=== PATIENT | female | born 1935 | race Caucasian/White ===

== ENCOUNTER 2016-07-15 13:55 | Outpatient (CLI) | payer MEDICARE, OTHER | END 2016-07-15 13:56 | disposition home or self-care (01) | DX: I82.509 Chronic embolism and thrombosis of unspecified deep veins of unspecified lower extremity (principal); Z79.01 Long term (current) use of anticoagulants ==

== ENCOUNTER 2016-07-16 12:30 | Outpatient (CLI) | payer MEDICARE, OTHER | END 2016-07-16 12:31 | disposition home or self-care (01) | DX: R91.1 Solitary pulmonary nodule (principal); J84.10 Pulmonary fibrosis, unspecified ==

== ENCOUNTER 2016-07-30 10:56 | Outpatient (CLI) | payer MEDICARE, OTHER | END 2016-07-30 10:57 | disposition home or self-care (01) | DX: C50.919 Malignant neoplasm of unspecified site of unspecified female breast (principal) ==

== ENCOUNTER 2016-07-31 13:08 | Outpatient (CLI) | payer MEDICARE, OTHER | END 2016-07-31 13:09 | disposition home or self-care (01) | DX: Z79.01 Long term (current) use of anticoagulants (principal); I82.509 Chronic embolism and thrombosis of unspecified deep veins of unspecified lower extremity ==

== ENCOUNTER 2016-10-07 11:27 | Outpatient (CLI) | payer MEDICARE, OTHER | END 2016-10-07 11:28 | disposition home or self-care (01) | DX: M17.12 Unilateral primary osteoarthritis, left knee (principal); R91.1 Solitary pulmonary nodule ==

== ENCOUNTER 2016-10-10 13:11 | Outpatient (CLI) | payer MEDICARE, OTHER | END 2016-10-10 13:12 | disposition home or self-care (01) | DX: I82.509 Chronic embolism and thrombosis of unspecified deep veins of unspecified lower extremity (principal); Z79.01 Long term (current) use of anticoagulants ==

== ENCOUNTER 2016-10-17 22:02 | Inpatient (IN) | payer MEDICARE, OTHER ==
--- NOTE | 2016-10-17 22:20 | ED Physician Documentation ---
PD HPI DYSPNEA - Stated complaint Stated Complaint: SOA - Chief complaint Chief Complaint: Resp - History obtained from History obtained from: Patient - History of Present Illness Timing - onset: How many weeks ago (1) Timing - details: Gradual onset, Waxing and waning Pain level now: 6 (right lateral chest pain) Improved by: Rest Worsened by: Exertion, Coughing Associated symptoms: Fever (Tmax 101 (was measuring at home), although this was 2-3 days ago and patient does not think she has had fever since then), Cough, Wheezing, Chest pain / discomfort. No: Hemoptysis, Palpitations Similar symptoms before: Has not had sx before Recently seen: Not recently seen - Additional information Additional information: nearly one week of increasing cough productive of green sputum, shortness of breath, wheezing, and right anterolateral chest pain that is worse with palpation and coughing Review of Systems Constitutional: reports: Fever. denies: Chills, Sweats Eyes: reports: Reviewed and negative Ears: reports: Reviewed and negative Nose: reports: Reviewed and negative Throat: reports: Reviewed and negative Cardiac: reports: Chest pain / pressure, Pedal edema (chronic). denies: Palpitations Respiratory: reports: Dyspnea, Cough, Wheezing. 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 Cardiovascular: CABG - Present Medications Home Medications: Ambulatory Orders Medication Instructions Recorded Confirmed Albuterol Sulfate [Proair Hfa] 8.5 gm IH Q6H PRN 11/16/12 10/17/16 Allopurinol [Zyloprim] 150 mg PO DAILY 11/16/12 10/17/16 Calcium Carbonate [Calcium] 600 mg PO DAILY 11/16/12 10/17/16 Cholecalciferol (Vitamin D3) 2,000 unit PO DAILY 11/16/12 10/17/16 [Vitamin D] Diphenoxylate HCl/Atropine 1 each PO BIDAC PRN 11/16/12 10/17/16 [Lomotil Tablet] Metoprolol Succinate [Toprol Xl] 50 mg PO BID 11/16/12 10/17/16 Potassium Chloride [K-Tab] 40 meq PO DAILY 11/16/12 10/17/16 SITagliptin [Januvia] 50 mg PO DAILY 11/17/13 10/17/16 oxyCODONE [Roxicodone] 5 mg PO ONCE PRN 11/17/13 10/17/16 Aspirin [Aspir 81] 81 mg ORAL DAILY 03/17/14 10/17/16 Atorvastatin [Lipitor] 40 mg PO DAILY 03/17/14 10/17/16 Iron 1 tab PO DAILY 11/23/14 10/17/16 Acetaminophen [Tylenol] 500 mg PO DAILY 07/17/16 10/17/16 Clopidogrel Bisulfate [Clopidogrel] 75 mg ORAL DAILY 10/17/16 10/17/16 Furosemide 40 mg PO DAILY 10/17/16 10/17/16 Insulin Glargine [Lantus] 15 mg SUBQ BID 10/17/16 10/17/16 Lisinopril [Zestril] 5 mg ORAL DAILY 10/17/16 10/17/16 Pantoprazole Sodium 40 mg ORAL DAILY 10/17/16 10/17/16 Warfarin [Coumadin] 2.5 mg PO QDWARFARIN 10/18/16 10/18/16 Warfarin [Coumadin] 5 mg PO 1400 10/18/16 10/18/16 - Allergies Allergies/Adverse Reactions: Allergies Allergy/AdvReac Type Severity Reaction Status Date / Time Sulfa (Sulfonamide Allergy Severe Hives Verified 10/17/16 22:19 Antibiotics) adhesive Allergy Mild Rash Verified 10/17/16 22:19 codeine Allergy Rash Verified 10/17/16 22:19 Penicillins Allergy Hives Verified 10/17/16 22:19 - Social History Does the pt smoke?: No Smoking Status: Former smoker Does the pt drink ETOH?: Yes Does the pt have substance abuse?: No - Immunizations Immunizations are current?: Yes - POLST Patient has POLST: No PD ED PE NORMAL - Vitals Vital signs reviewed: Yes - General General: Alert and oriented X 3, No acute distress, Well developed/nourished - HEENT HEENT: Moist mucous membranes - Neck Neck: Supple, no meningeal sign - Cardiac Cardiac: RRR, No murmur - Respiratory Respiratory: No respiratory distress - Abdomen Abdomen: Soft, Non tender - Derm Derm: Normal color, Warm and dry PD ED PE EXPANDED - Respiratory Respiratory: Wheezing, Rhonchi - Extremities Extremities: Pedal edema bilateral Results - Vitals Vitals: Vital Signs - 24 hr 10/17/16 10/17/16 10/17/16 22:09 23:29 23:51 Temperature 37.3 C 37.2 C Heart Rate 105 H 99 97 Respiratory 18 20 20 Rate Blood Pressure 152/56 H 120/58 L O2 Saturation 95 97 10/18/16 10/18/16 10/18/16 00:59 01:42 01:45 Temperature 36.7 C Heart Rate 96 96 Respiratory 18 20 Rate Blood Pressure 144/62 H O2 Saturation 91 L 96 Oxygen O2 Source [With Activity] Room air O2 Source [Without Activity] Room air O2 Source Nasal cannula - EKG (time done) No standard instances Rate: Rate (enter#) (100) Rhythm: NSR, LAE [place]: Normal Intervals: Normal SC QRS: Normal Ischemia: Q waves (III, aVF) - Labs Labs: Laboratory Tests 10/17/16 10/17/16 10/17/16 23:43 23:43 23:43 WBC 13.9 H RBC 3.97 L Hgb 11.4 L Hct 35.2 L MCV 88.6 MCH 28.8 MCHC 32.5 RDW 17.7 H Plt Count 246 MPV 9.9 Neut # Not Reportable Lymph # Not Reportable Clay # Not Reportable Eos # Not Reportable Baso # Not Reportable Absolute Nucleated RBC Not Reportable Total Counted 100 Band Neuts % (Manual) 4 Myelocytes % 1 H Neutrophils # (Manual) 11.3 H Lymphocytes # (Manual) 1.7 Monocytes # (Manual) 0.8 Nucleated RBCs Not Reportable Differential Comment MANUAL DIFFERENTIAL Platelet Estimate NORMAL (130-450,000) RBC Morph Micro Appear NORMAL APPEARANCE PT 28.7 H INR 2.5 H APTT 31.8 Sodium 141 Potassium 4.3 Chloride 104 Carbon Dioxide 30 Anion Gap 7.0 BUN 32 H Creatinine 1.3 H Estimated GFR (MDRD) 40 L Glucose 166 H Calcium 8.9 Total Bilirubin 0.4 AST 22 ALT 18 Alkaline Phosphatase 87 B-Natriuretic Peptide Total Protein 7.2 Albumin 3.1 L Globulin 4.1 Albumin/Globulin Ratio 0.8 L Lipase 53 H 10/17/16 23:43 WBC RBC Hgb Hct MCV MCH MCHC RDW Plt Count MPV Neut # Lymph # Clay # Eos # Baso # Absolute Nucleated RBC Total Counted Band Neuts % (Manual) Myelocytes % Neutrophils # (Manual) Lymphocytes # (Manual) Monocytes # (Manual) Nucleated RBCs Differential Comment Platelet Estimate RBC Morph Micro Appear PT INR APTT Sodium Potassium Chloride Carbon Dioxide Anion Gap BUN Creatinine Estimated GFR (MDRD) Glucose Calcium Total Bilirubin AST ALT Alkaline Phosphatase B-Natriuretic Peptide 178 H Total Protein Albumin Globulin Albumin/Globulin Ratio Lipase - Rads (name of study) chest xray Radiology: Prelim report reviewed, See rad report PD MEDICAL DECISION MAKING - ED course Complexity details: reviewed results, re-evaluated patient, considered differential, d/w patient, d/w family ED course: course wheezing bilaterally on arrival with pulse ox 93-95% room air. patient reported mild improvement after duoneb and then xopenex neb, but lung sounds are unchanged on reexam and her pulse ox dropped to 90% room air. Departure - Departure Disposition: [facility] DC/Xfer Clinical Impression: Dyspnea, Pneumonia Condition: Stable Discharge Date/Time: 10/18/16 03:50
[2016-10-17] MEDS ORDERED: ACETAMINOPHEN 325 MG TABLET PO STA (23:12)
[2016-10-17] MEDS ORDERED: ACETAMINOPHEN 325 MG TABLET PO ONE (23:13)
--- NOTE | 2016-10-17 23:13 | XRAY Preliminary Report ---
Exam: XR Chest 2 View PA/LAT IMPRESSION: Stable cardiomegaly. No acute pulmonary findings. [facility] SITE ID: [id number]
[2016-10-17] MEDS ORDERED: IPRATROPIUM/ALBUTEROL 3 ML NEB INH STA (23:16)
--- NOTE | 2016-10-17 23:16 | XRAY Report ---
EXAM: CHEST RADIOGRAPHY EXAM DATE: 10/17/2016 10:35 PM. CLINICAL HISTORY: Cough, dyspnea. COMPARISON: Chest 10/07/2016. TECHNIQUE: 2 views. FINDINGS: Lungs/Pleura: No focal opacities evident. No pleural effusion. No pneumothorax. Normal volumes. Limit ed penetration on the frontal view. Mediastinum: Stable cardiomegaly. Mediastinal postsurgical change Other: None. IMPRESSION: Stable cardiomegaly. No acute pulmonary findings. [facility] Referring Provider Line: [phone] SITE ID: [id number]
[2016-10-17] MEDS ORDERED: IPRATROPIUM/ALBUTEROL 3 ML NEB INH ONE (23:24)
[2016-10-17 23:55] LABS: EOSINOPHILS % (AUTO) 3.6 %; HCT - HEMATOCRIT 35.2 % (37.0-47.0); HGB - HEMOGLOBIN 11.4 g/dL (12.0-16.0); LYMPHOCYTES % (AUTO) 11.9 %; MEAN CORPUSCULAR HEMOGLOBIN 28.8 pg (27.0-31.0); MEAN CORPUSCULAR HGB CONC 32.5 g/dL (32.0-36.0); MEAN CORPUSCULAR VOLUME 88.6 fL (81.0-99.0); MEAN PLATELET VOLUME 9.9 fL (7.9-10.8); MONOCYTES % (AUTO) 11.7 %; NEUTROPHILS % (AUTO) 71.8 %; RED BLOOD COUNT 3.97 10^6/uL (4.20-5.40); RED CELL DISTRIBUTION WIDTH 17.7 % (12.0-15.0); UNCORRECTED WHITE BLOOD COUNT 13.9 x10^3/uL; WHITE BLOOD COUNT 13.9 x10^3/uL (4.8-10.8)
[2016-10-18 00:05] LABS: ALBUMIN/GLOBULIN RATIO 0.8 (1.0-2.2); BILIRUBIN,TOTAL 0.4 mg/dL (0.2-1.0); CALCIUM 8.9 mg/dL (8.5-10.3); CREATININE 1.3 mg/dL (0.4-1.0); POTASSIUM 4.3 mmol/L (3.5-5.0); TOTAL PROTEIN 7.2 g/dL (6.7-8.2)
[2016-10-18 00:07] LABS: INR 2.5 (0.8-1.2); PT - PROTHROMBIN TIME 28.7 secs (9.9-12.6)
[2016-10-18 00:15] LABS: PARTIAL THROMBOPLASTIN TIME 31.8 secs (24.9-33.3)
[2016-10-18 00:20] LABS: BAND NEUTROPHILS % (MANUAL) 4 %; LYMPHOCYTES % (MANUAL) 12 %; NEUTROPHILS % (MANUAL) 77 %; NP AUTO DIFFERENTIAL? YES; NP MAN DIFFERENTIAL? NO; PLATELET ESTIMATE, MANUAL NORMAL (130-450,000) (NORMAL); TOTAL CELLS COUNTED 100
[2016-10-18] MEDS ORDERED: LEVALBUTEROL 1.25 MG INH STA (00:54)
[2016-10-18] MEDS ORDERED: LEVALBUTEROL 1.25 MG INH ONE (00:55)
[2016-10-18] MEDS ORDERED: oxyCODONE 5 MG TABLET PO STA (00:56)
[2016-10-18] MEDS ORDERED: oxyCODONE 5 MG TABLET ONE (00:57)
[2016-10-18] MEDS ORDERED: methylPREDNISolone SUCCINATE 125 MG/2 ML VIAL IVP STA (00:57)
[2016-10-18] MEDS ORDERED: methylPREDNISolone SUCCINATE 125 MG/2 ML VIAL IVP ONE (00:57)
[2016-10-18] MEDS ORDERED: ONDANSETRON 4 MG/2 ML VIAL IVP PRN (02:31)
[2016-10-18] MEDS ORDERED: PROCHLORPERAZINE 10 MG/2 ML VIAL IVP PRN (02:31)
--- NOTE | 2016-10-18 02:50 | HISTORY & PHYSICAL EXAMINATION ---
Chief Complaint - Chief Complaint Chief Complaint: shortness of air History of Present Illness - Admitted From Admitted From:: emergency department - History Obtained From Records Reviewed: yes History obtained from: patient and family Exam Limitations: none - History of Present Illness HPI Comment/Other: Patient is a 81-year-old female with a past medical history significant for obesity, diabetes, coronary artery disease status post 3 vessel bypass 1 year ago, history of pulmonary embolism and DVT with IVC filter on Coumadin, history of subdural hematoma, history of breast cancer, spinal stenosis with chronic back pain, hypertension, hyperlipidemia, history of TIAs with memory impairment , osteoarthritis and gout who presented to the emergency department with a chief complaint of shortness of air. The patient states that her symptoms started about one week ago. She states that initially she thought she had a cold she felt a slight sore throat and then began having cough initially just at night. The patient states that the cough progressed with increased sputum production and she now has cough throughout the day. She states that over the last few days cough has increased, she had fever at home of 101 yesterday and she's begun feeling increasingly short of air appear. She also admits to chest pain on the right side she states that the pain is worse when she takes a deep breath. She states that she did have a fall about 6 months ago in [place] and broke several ribs at that time on the right side of her chest. He also states that she had a coronary artery bypass graft one year ago and did have a sternotomy at that time. The patient denies any sick contacts. She does admit to a history of smoking but has quit over 20 years ago. The patient does use inhalers from time to time at home but has never had a diagnosis of COPD. The patient has never been admitted to the hospital for COPD exacerbation in the past. 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 The patient denies any orthopnea PND or increased lower extremity swelling. On presentation to the emergency department the patient was afebrile, tachycardic, slightly hypertensive but initially was not tachypnea and not hypoxic. The patient did have audible wheezing and appeared very tight on lung examination with coarse rhonchi. The patient was given several breathing treatments after which she did not have very much improvement in her shortness of air. Her O2 sats dropped to the low 90s and she was placed on oxygen. Patient 's chest x-ray did not reveal an acute infiltrate. She did have a leukocytosis of 13.9 and clinically appeared to have a pneumonia therefore she was admitted to the hospital for community-acquired pneumonia and COPD exacerbation. Review of Systems - Constitutional Constitutional: reports: Fever. denies: Fatigue, Chills, Malaise, Weakness, Poor appetite, Diaphoresis, Night sweats, Weight gain, Weight loss - Eyes Eyes: denies: Pain, Irritation, Amaurosis, Blurred vision, Spots in vision, Field loss, Vision loss, Dipolpia - Ears, Nose & Throat Ears, Nose & Throat: reports: Nasal congestion, Sore throat, Hoarseness. denies : Ear pain, Hearing loss, Hearing aids, Tinnitus, Vertigo, Nasal pain, Nasal discharge, Nosebleeds, Nasal obstruction, Postnasal drainage, Mouth lesions, Bleeding gums, Dental decay, Dental pain - Cardiovascular Cariovascular: reports: Chest pain (Right sided, pleuritic), Exertional dyspnea , Decr. exercise tolerance. denies: Irregular heart rate, Palpitations, Edema, Lightheadedness, Syncope, Orthopnea - Respiratory Respiratory: reports: Cough, Sputum production, Wheezing, SOB at rest, SOB with exertion, Pleuritic pain. denies: Hemoptysis, Orthopnea, Apnea, Stridor - Gastrointestinal Gastrointestinal: denies: Abdominal pain, Abdominal distention, Constipation, Diarrhea, Change in bowel habits, Black stools, Bloody stools, Nausea, Vomiting , Coffee grounds emesis, Poor appetite - Genitourinary Genitourinary: denies: Dysuria, Frequency, Urgency, Hematuria, Incontinence - Musculoskeletal Musculoskeletal: reports: Back pain, Joint pain. denies: Muscle pain, Muscle aches - Integumentary Integumentary: denies: Rash, Pruritis, Lesions - Neurological Neurological: reports: Abnormal gait. denies: General weakness, Focal weakness , Headache, Dizziness, Numbness, Memory problems, Pre-existing deficit - Psychiatric Psychiatric: denies: Depression, Anxiety, Suicidal, Delusions - Endocrine Endocrine: denies: Polyuria, Polydypsia, Polyphagia - Hematologic/Lymphatic Hematologic/Lymphatic: denies: Anemia, Bruising, Petechiae, Blood clots, Lymphadenopathy History - Past Medical History Cardiovascular: reports: Hypertension, High cholesterol, Coronary artery disease (s/p CABG 1 years ago with 3 vessel bypass), Deep vein thrombosis, Pulmonary embolism (s/p IVC filter and on anticoagulation) Respiratory: reports: Asthma, COPD, Other (Rib fractures) Neuro: reports: TIA, Other (Subdural Hematoma) Endocrine/Autoimmune: reports: Type 2 diabetes GI: reports: None 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 Social History Notes: [facility]. Moved to [place] 40 years ago. Now lives 6 months in [place] and 6 months on [facility]. She lives with her . They are independent. Patient was using a cane till recent injury to her knee and now uses cane and wheelchair. She has 3 children. - Substance History Use: Uses substance without health or social issues: NONE Abuse: Recurrent use of substance despite neg consequences: NONE Dependence: Experiences withdrawal or developed tolerances: NONE Tobacco Details: Cigarettes (History of tobacco use 1-2 PPD for 30 plus years quit over 20 years ago. ) - POLST Patient has POLST: No Meds/Allgy - Home Medications Home Medications: Ambulatory Orders Medication Instructions Recorded Confirmed Albuterol Sulfate [Proair Hfa] 8.5 gm IH Q6H PRN 11/16/12 10/17/16 Allopurinol [Zyloprim] 150 mg PO DAILY 11/16/12 10/17/16 Calcium Carbonate [Calcium] 600 mg PO DAILY 11/16/12 10/17/16 Cholecalciferol (Vitamin D3) 2,000 unit PO DAILY 11/16/12 10/17/16 [Vitamin D] Diphenoxylate HCl/Atropine 1 each PO BIDAC PRN 11/16/12 10/17/16 [Lomotil Tablet] Metoprolol Succinate [Toprol Xl] 50 mg PO BID 11/16/12 10/17/16 Potassium Chloride [K-Tab] 40 meq PO DAILY 11/16/12 10/17/16 SITagliptin [Januvia] 50 mg PO DAILY 11/17/13 10/17/16 oxyCODONE [Roxicodone] 5 mg PO ONCE PRN 11/17/13 10/17/16 Aspirin [Aspir 81] 81 mg ORAL DAILY 03/17/14 10/17/16 Atorvastatin [Lipitor] 40 mg PO DAILY 03/17/14 10/17/16 Iron 1 tab PO DAILY 11/23/14 10/17/16 Acetaminophen [Tylenol] 500 mg PO DAILY 07/17/16 10/17/16 Clopidogrel Bisulfate [Clopidogrel] 75 mg ORAL DAILY 10/17/16 10/17/16 Furosemide 40 mg PO DAILY 10/17/16 10/17/16 Insulin Glargine [Lantus] 15 mg SUBQ BID 10/17/16 10/17/16 Lisinopril [Zestril] 5 mg ORAL DAILY 10/17/16 10/17/16 Pantoprazole Sodium 40 mg ORAL DAILY 10/17/16 10/17/16 Warfarin [Coumadin] 2.5 mg PO QDWARFARIN 10/18/16 10/18/16 Warfarin [Coumadin] 5 mg PO 1400 10/18/16 10/18/16 - Allergies Allergies/Adverse Reactions: Allergies Allergy/AdvReac Type Severity Reaction Status Date / Time Sulfa (Sulfonamide Allergy Severe Hives Verified 10/17/16 22:19 Antibiotics) adhesive Allergy Mild Rash Verified 10/17/16 22:19 codeine Allergy Rash Verified 10/17/16 22:19 Penicillins Allergy Hives Verified 10/17/16 22:19 Exam - Vital Signs Reviewed Vital Signs: Yes Vital Signs: Vital Signs x48h Temp Pulse Resp BP Pulse Ox 10/18/16 01:45 96 10/18/16 01:42 36.7 C 96 20 144/62 H 91 L 10/18/16 00:59 96 18 10/17/16 23:51 37.2 C 97 20 120/58 L 97 10/17/16 23:29 99 20 10/17/16 22:09 37.3 C 105 H 18 152/56 H 95 - Physical Exam General Appearance: positive: Alert, Mild distress (Audible wheezing, short of air at rest and continued coughing) Eyes Bilateral: positive: Normal inspection, PERRL, EOMI, No lid inflammation, Conjunctivae nml, No scleral icterus ENT: positive: ENT inspection nml, Pharynx nml, No signs of dehydration. negative: Purulent nasal drainage, Pharyngeal erythema, Oral lesions Neck: positive: Nml inspection, Thyroid nml, No JVD, Trachea midline. negative : Thyromegaly, Lymphadenopathy (R), Lymphadenopathy (L) Respiratory: positive: Wheezes (Inspiratory and expiratory wheezing worst in upper airways.), Rales (at bases), Rhonchi (Coarse rhonci heard bilaterally worse in lower lobes), Other (Right side of chest is tender to touch) Cardiovascular: positive: No murmur, No gallop, Tachycardia Peripheral Pulses: positive: 2+ Abdomen: positive: Non-tender, No organomegaly, Nml bowel sounds, No distention. negative: Guarding, Rebound, Hepatomegaly Back: positive: Nml inspection. negative: CVA tenderness (R), CVA tenderness (L ) Skin: positive: Color nml, No rash, Warm Extremities: positive: Non-tender, Full ROM, Pedal edema (Mild), Joint swelling , Other (Bouchards and heberdens nodes on DIPs and PIPs. Crepitus in the knee joints. Swollen knee joints right worse than left.) Neurologic/Psychiatric: positive: Oriented x3, CN's nml (2-12), Motor nml, Sensation nml, Mood/affect nml Conclusion/Plan - Problem List (1) CAP (community acquired pneumonia) Conclusion/Plan: Patient presented with productive cough, shortness of air, fever of 101 at home and was hypoxic down to 90% in the ED with wheezing and rhonci on exam Patients CXR was negative but she clinically appears to have a pneumonia Plan CT scan of chest to better access for pneumonia IV ceftriaxone and Azithromycin to cover organisms for CAP Cough suppressant Supplemental O2 Nebs Monitor (2) COPD exacerbation Conclusion/Plan: Patient does not have PFTs to diagnose COPD but she has used inhalers at home in the past, she also smoked 1-2 PPD for 30 plus years She presented with diffuse bilateral inspiratory and expiratory wheezing Likley exacerbation secondary to pneumonia Plan Supplemental O2 Duonebs ATC and prn IV solumedrol TID IV abx for pneumonia (3) Chest pain Conclusion/Plan: Appears pleuritic and musculoskelatal in nature Patient broke multiple ribs 6 months ago She also appears to have pneumonia Pleurtic component likely from pneumonia and MSK component likely from history of fractures (4) Diabetes Conclusion/Plan: Hyperglycemia on presentation likely secondary to stress from infection Patient will be on steroids for COPD and this will likely make sugars worse Continue home dose of Lantus BID Place patient on sliding scale insulin with meals HbA1C Diabetic diet (5) History of coronary artery disease Conclusion/Plan: CABG 3 vessel one year ago On ASA, Plavix, lipitor and metoprolol Optimal medications Patient has chest pain but it is pleuritic EKG and trop negative Stable (6) History of pulmonary embolism Conclusion/Plan: On coumadin and has a IVC filter secondary to subdural hematoma when initially treated for PE INR theraputic COntinue coumadin Monitor INR (7) Hypertension Conclusion/Plan: BP elevated on presentation Will continue home meds Monitor and titrate meds as needed (8) Hyperlipidemia Conclusion/Plan: COntinue lipitor Stable (9) Chronic back pain Conclusion/Plan: Secondary to spinal stenosis On oxycodone at home prn Will continue oxycodone here and add morphine as patient has added pain in the chest. - Lab Results Lab results reviewed: Yes Fish Bones: 10/17/16 23:43 10/17/16 23:43 - Diagnostic Imaging Results Diagnostic Imaging Results: positive: Final report reviewed Diagnostic Imaging Results Comments: No infiltrates seen on CXR - EKG Results EKG Interpreted Independently: Yes EKG Findings: No ST elevations, Normal sinus rhythm Issues/Core Measures - Anticipated LOS Anticipated Stay Length: 2 or more midnights - DVT/VTE - Prophylaxis VTE/DVT Device ordered at admit?: Yes
[2016-10-18] MEDS: guaiFENesin 600 MG TABLET PO SCH ×3 (04:07→21:37)
[2016-10-18] MEDS: ACETAMINOPHEN 325 MG TABLET PO PRN ×2 (04:07→23:53)
[2016-10-18] MEDS: SODIUM CHLORIDE 0.9% 1,000 ML IV SCH ×3 (04:08→23:53)
[2016-10-18] MEDS: SODIUM CHLORIDE FLUSH 0.9% 10 ML SYRINGE IVP SCH ×3 (04:09→21:41)
[2016-10-18] MEDS: AZITHROMYCIN INJ 500 MG in SODIUM CHLORIDE 0.9% 250 ML IV SCH (04:29)
--- NOTE | 2016-10-18 04:52 | CT Report ---
EXAM: CT CHEST EXAM DATE: 10/18/2016 03:33 AM. CLINICAL HISTORY: Clinical presentation w pneumonia not seen on CXR. Productive cough and wheezing. COMPARISONS: CT, 04/06/2014, and multiple chest radiographs of 10/17/2016 and earlier. TECHNIQUE: Routine helical CT imaging was performed through the chest. IV contrast: None. Reconstructions: Coron al and sagittal. In accordance with CT protocol optimization, one or more of the following dose reduction techniques w ere utilized for this exam: automated exposure control, adjustment of mA and/or KV based on patient s ize, or use of iterative reconstructive technique. FINDINGS: Lungs/Pleura: Focal mass or consolidation at the right apex measuring 3.2 x 3.0 cm, 09/19. This is new compared with the prior CT and not well seen on the chest radiographs. Scarring is again seen in the left upper lobe consistent with prior radiation. There is bibasilar atelectasis. No pleural effusion is seen. No pneumothorax is noted. Mediastinum: Heart size is normal. Normal to upper normal-sized mediastinal lymph nodes measuring up to 1.0 cm. Aortic atherosclerosis. No aortic aneurysm. Bones: Median sternotomy. Osteopenia. Ununited left rib fractures. Degenerative changes in the spine. Visualized Abdomen: Possible tiny stones in the gallbladder. Other: None. IMPRESSION: 1. There is a 3 cm mass or consolidation at the right apex. This could represent pneumonia but could also be malignant. Consider CT follow-up, versus PET/CT or biopsy depending on the clinical scenario. 2. Normal to upper normal-sized mediastinal lymph nodes. [facility] Referring Provider Line: [phone] SITE ID: [id number]
[2016-10-18] MEDS: cefTRIAXone 2 GM in SODIUM CHLORIDE 0.9% MINIBAG 100 ML IV SCH (05:36)
[2016-10-18] MEDS: methylPREDNISolone SUCCINATE 40 MG/ML VIAL IVP SCH ×3 (05:36→21:39)
[2016-10-18] MEDS: IPRATROPIUM/ALBUTEROL 3 ML NEB INH SCH ×4 (06:06→20:45)
[2016-10-18 06:29] LABS: BASOPHILS % (AUTO) 0.3 %; HGB - HEMOGLOBIN 11.1 g/dL (12.0-16.0); LYMPHOCYTES % (AUTO) 3.9 %; MEAN CORPUSCULAR HEMOGLOBIN 28.4 pg (27.0-31.0); MEAN CORPUSCULAR HGB CONC 31.6 g/dL (32.0-36.0); MEAN CORPUSCULAR VOLUME 89.9 fL (81.0-99.0); MONOCYTES % (AUTO) 0.8 %; RED BLOOD COUNT 3.89 10^6/uL (4.20-5.40); RED CELL DISTRIBUTION WIDTH 17.1 % (12.0-15.0); UNCORRECTED WHITE BLOOD COUNT 12.4 x10^3/uL; WHITE BLOOD COUNT 12.4 x10^3/uL (4.8-10.8)
[2016-10-18] MEDS: PANTOPRAZOLE 40 MG TABLET PO SCH (06:35)
[2016-10-18 06:37] LABS: INR 2.7 (0.8-1.2); PT - PROTHROMBIN TIME 31.1 secs (9.9-12.6)
[2016-10-18 06:40] LABS: CALCIUM 8.5 mg/dL (8.5-10.3); CREATININE 1.2 mg/dL (0.4-1.0); MAGNESIUM 1.7 mg/dL (1.7-2.8); PHOSPHORUS 3.8 mg/dL (2.5-4.6); POTASSIUM 4.3 mmol/L (3.5-5.0)
[2016-10-18 06:58] LABS: BAND NEUTROPHILS % (MANUAL) 8 %; BASOPHILS % (MANUAL) 1 %; EOSINOPHILS % (MANUAL) 1 %; LYMPHOCYTES % (MANUAL) 3 %; NEUTROPHILS % (MANUAL) 86 %; NP AUTO DIFFERENTIAL? YES; NP MAN DIFFERENTIAL? NO; PLATELET ESTIMATE, MANUAL NORMAL (130-450,000) (NORMAL); TOTAL CELLS COUNTED 100
[2016-10-18 07:57] LABS: HEMOGLOBIN A1C 0.64 g/dL
[2016-10-18] MEDS ORDERED: INSULIN ASPART 300 UNIT/3 ML PEN SUBQ SCH (08:00)
[2016-10-18] MEDS: METOPROLOL SUCCINATE 25 MG TABLET PO SCH ×2 (08:55→21:38)
[2016-10-18] MEDS: INSULIN GLARGINE 300 UNIT/3 ML PEN SUBQ SCH ×2 (08:56→21:39)
[2016-10-18] MEDS: ASPIRIN EC 81 MG TABLET PO SCH (08:57)
[2016-10-18] MEDS: POTASSIUM CHLORIDE 20 MEQ TABLET PO SCH (08:57)
[2016-10-18] MEDS: ALLOPURINOL 100 MG TABLET PO SCH (08:57)
[2016-10-18] MEDS: CLOPIDOGREL 75 MG TABLET PO SCH (08:58)
[2016-10-18] MEDS: SACCHAROMYCES BOULARDII 250 MG CAPSULE PO SCH ×2 (08:58→17:59)
[2016-10-18] MEDS: LISINOPRIL 5 MG TABLET PO SCH (08:59)
[2016-10-18] MEDS: FUROSEMIDE 40 MG TABLET PO SCH (08:59)
[2016-10-18] MEDS: CALCIUM CARBONATE 1,250 MG/5 ML UDC PO SCH (08:59)
[2016-10-18] MEDS ORDERED: INSULIN GLARGINE SUBQ SCH (09:00)
[2016-10-18] MEDS ORDERED: IRON PO SCH (09:00)
[2016-10-18] MEDS ORDERED: POTASSIUM CHLORIDE 40 MEQ PO SCH (09:00)
[2016-10-18] MEDS ORDERED: NON FORMULARY MED (Calcium Carbonate [Calcium] 600 MG) PO SCH (09:00)
[2016-10-18] MEDS ORDERED: NON FORMULARY MED (Atorvastatin [Lipitor] 40 MG) PO SCH (09:00)
[2016-10-18] MEDS: POLYETHYLENE GLYCOL 3350 17 GM PACKET PO SCH (09:00)
[2016-10-18] MEDS ORDERED: ATORVASTATIN 40 MG TABLET PO SCH (09:00)
[2016-10-18] MEDS ORDERED: DOCUSATE SODIUM 100 MG CAPSULE PO PRN (11:21)
[2016-10-18] MEDS: amLODIPine 5 MG TABLET PO SCH (12:21)
[2016-10-18] MEDS: INSULIN ASPART 300 UNIT/3 ML PEN SUBQ SCH ×3 (12:21→21:40)
[2016-10-18 12:30] LABS: HEMOGLOBIN A1C 0.68 g/dL
[2016-10-18] MEDS ORDERED: WARFARIN 5 MG TABLET PO SCH (14:00)
[2016-10-18] MEDS ORDERED: VENLAFAXINE 37.5 MG TABLET PO SCH (14:00)
[2016-10-18] MEDS ORDERED: WARFARIN 2.5 MG TABLET PO SCH ×3 (14:00→14:45)
[2016-10-18] MEDS ORDERED: WARFARIN 2.5 MG TABLET PO ONE (15:15)
[2016-10-18] MEDS: BENZONATATE 100 MG CAPSULE PO PRN (21:37)
[2016-10-18] MEDS: oxyCODONE 5 MG TABLET PO PRN (21:51)
[2016-10-18] MEDS: PRAVASTATIN 40 MG TABLET PO SCH (21:51)
[2016-10-19] MEDS: BENZONATATE 100 MG CAPSULE PO PRN ×2 (00:50→22:05)
[2016-10-19 06:28] LABS: BASOPHILS % (AUTO) 0.2 %; HCT - HEMATOCRIT 33.6 % (37.0-47.0); HGB - HEMOGLOBIN 10.7 g/dL (12.0-16.0); LYMPHOCYTES % (AUTO) 5.3 %; MEAN CORPUSCULAR HEMOGLOBIN 28.3 pg (27.0-31.0); MEAN CORPUSCULAR HGB CONC 31.9 g/dL (32.0-36.0); MEAN CORPUSCULAR VOLUME 88.9 fL (81.0-99.0); MEAN PLATELET VOLUME 9.9 fL (7.9-10.8); NEUTROPHILS % (AUTO) 91.5 %; RED BLOOD COUNT 3.78 10^6/uL (4.20-5.40); RED CELL DISTRIBUTION WIDTH 17.2 % (12.0-15.0)
[2016-10-19 06:35] LABS: INR 3.7 (0.8-1.2); PT - PROTHROMBIN TIME 42.1 secs (9.9-12.6)
[2016-10-19] MEDS: methylPREDNISolone SUCCINATE 40 MG/ML VIAL IVP SCH ×2 (06:38→10:17)
[2016-10-19] MEDS: PANTOPRAZOLE 40 MG TABLET PO SCH (06:38)
[2016-10-19] MEDS: SODIUM CHLORIDE FLUSH 0.9% 10 ML SYRINGE IVP SCH ×3 (06:39→22:12)
[2016-10-19 06:42] LABS: CALCIUM 8.5 mg/dL (8.5-10.3); MAGNESIUM 1.5 mg/dL (1.7-2.8); PHOSPHORUS 3.3 mg/dL (2.5-4.6)
[2016-10-19 06:49] LABS: BAND NEUTROPHILS % (MANUAL) 7 %; LYMPHOCYTES % (MANUAL) 5 %; NEUTROPHILS % (MANUAL) 83 %; NP AUTO DIFFERENTIAL? YES; NP MAN DIFFERENTIAL? NO; PLATELET ESTIMATE, MANUAL NORMAL (130-450,000) (NORMAL); TOTAL CELLS COUNTED 100
[2016-10-19] MEDS: IPRATROPIUM/ALBUTEROL 3 ML NEB INH PRN ×3 (07:30→20:00)
[2016-10-19] MEDS: CALCIUM CARBONATE 1,250 MG/5 ML UDC PO SCH (08:22)
[2016-10-19] MEDS: cefTRIAXone 2 GM in SODIUM CHLORIDE 0.9% MINIBAG 100 ML IV SCH ×2 (08:23→08:25)
[2016-10-19] MEDS: METOPROLOL SUCCINATE 25 MG TABLET PO SCH ×2 (08:25→22:05)
[2016-10-19] MEDS: LISINOPRIL 5 MG TABLET PO SCH (08:26)
[2016-10-19] MEDS: POTASSIUM CHLORIDE 20 MEQ TABLET PO SCH (08:26)
[2016-10-19] MEDS: CLOPIDOGREL 75 MG TABLET PO SCH (08:26)
[2016-10-19] MEDS: ASPIRIN EC 81 MG TABLET PO SCH (08:27)
[2016-10-19] MEDS: FUROSEMIDE 40 MG TABLET PO SCH (08:27)
[2016-10-19] MEDS: guaiFENesin 600 MG TABLET PO SCH ×2 (08:27→22:06)
[2016-10-19] MEDS: amLODIPine 5 MG TABLET PO SCH (08:28)
[2016-10-19] MEDS: SACCHAROMYCES BOULARDII 250 MG CAPSULE PO SCH (08:28)
[2016-10-19] MEDS: ALLOPURINOL 100 MG TABLET PO SCH (08:28)
[2016-10-19] MEDS: INSULIN ASPART 300 UNIT/3 ML PEN SUBQ SCH ×4 (08:29→22:10)
[2016-10-19] MEDS: INSULIN GLARGINE 300 UNIT/3 ML PEN SUBQ SCH ×2 (08:30→22:07)
[2016-10-19] MEDS: POLYETHYLENE GLYCOL 3350 17 GM PACKET PO SCH (08:34)
[2016-10-19] MEDS: AZITHROMYCIN INJ 500 MG in SODIUM CHLORIDE 0.9% 250 ML IV SCH (09:02)
[2016-10-19] MEDS: SODIUM CHLORIDE 0.9% 1,000 ML IV SCH ×3 (09:04→22:55)
[2016-10-19] MEDS: WARFARIN 2.5 MG TABLET PO SCH (09:10)
[2016-10-19] MEDS: ACETAMINOPHEN 325 MG TABLET PO PRN ×2 (10:39→23:55)
[2016-10-19] MEDS ORDERED: WARFARIN 2.5 MG TABLET PO SCH (14:00)
[2016-10-19] MEDS: oxyCODONE 5 MG TABLET PO PRN (22:06)
[2016-10-19] MEDS: PRAVASTATIN 40 MG TABLET PO SCH (22:18)
[2016-10-20] MEDS: oxyCODONE 5 MG TABLET PO PRN ×3 (06:09→19:24)
[2016-10-20] MEDS: PANTOPRAZOLE 40 MG TABLET PO SCH (06:10)
[2016-10-20] MEDS: SODIUM CHLORIDE FLUSH 0.9% 10 ML SYRINGE IVP SCH ×3 (06:13→21:24)
[2016-10-20 06:15] LABS: BASOPHILS # (AUTO) 0.1 10^3/uL (0.0-0.1); BASOPHILS % (AUTO) 0.3 %; HCT - HEMATOCRIT 34.6 % (37.0-47.0); HGB - HEMOGLOBIN 10.8 g/dL (12.0-16.0); LYMPHOCYTES # (AUTO) 1.2 10^3/uL (1.5-3.5); LYMPHOCYTES % (AUTO) 7.3 %; MEAN CORPUSCULAR HEMOGLOBIN 28.3 pg (27.0-31.0); MEAN CORPUSCULAR HGB CONC 31.3 g/dL (32.0-36.0); MEAN CORPUSCULAR VOLUME 90.3 fL (81.0-99.0); MEAN PLATELET VOLUME 10.4 fL (7.9-10.8); MONOCYTES % (AUTO) 5.7 %; NEUTROPHILS # (AUTO) 14.8 10^3/uL (1.5-6.6); NEUTROPHILS % (AUTO) 86.7 %; NUCLEATED RED BLOOD CELLS AUTO 0.1 /100WBC; RED BLOOD COUNT 3.83 10^6/uL (4.20-5.40); RED CELL DISTRIBUTION WIDTH 17.2 % (12.0-15.0); UNCORRECTED WHITE BLOOD COUNT 17.1 x10^3/uL; WHITE BLOOD COUNT 17.1 x10^3/uL (4.8-10.8)
[2016-10-20 06:25] LABS: CALCIUM 8.6 mg/dL (8.5-10.3); CREATININE 1.1 mg/dL (0.4-1.0); MAGNESIUM 1.6 mg/dL (1.7-2.8); POTASSIUM 3.8 mmol/L (3.5-5.0)
[2016-10-20 06:41] LABS: INR 3.7 (0.8-1.2); PT - PROTHROMBIN TIME 42.1 secs (9.9-12.6)
[2016-10-20] MEDS: IPRATROPIUM/ALBUTEROL 3 ML NEB INH PRN ×3 (07:10→14:40)
[2016-10-20] MEDS: INSULIN ASPART 300 UNIT/3 ML PEN SUBQ SCH ×4 (08:01→21:39)
[2016-10-20] MEDS: AZITHROMYCIN INJ 500 MG in SODIUM CHLORIDE 0.9% 250 ML IV SCH (08:16)
[2016-10-20] MEDS: ASPIRIN EC 81 MG TABLET PO SCH (08:18)
[2016-10-20] MEDS: SACCHAROMYCES BOULARDII 250 MG CAPSULE PO SCH ×2 (08:18→17:09)
[2016-10-20] MEDS: ALLOPURINOL 100 MG TABLET PO SCH (08:18)
[2016-10-20] MEDS: POTASSIUM CHLORIDE 20 MEQ TABLET PO SCH (08:19)
[2016-10-20] MEDS: guaiFENesin 600 MG TABLET PO SCH ×3 (08:19→21:38)
[2016-10-20] MEDS: METOPROLOL SUCCINATE 25 MG TABLET PO SCH ×2 (08:20→21:21)
[2016-10-20] MEDS: CLOPIDOGREL 75 MG TABLET PO SCH (08:20)
[2016-10-20] MEDS: FUROSEMIDE 40 MG TABLET PO SCH (08:20)
[2016-10-20] MEDS: amLODIPine 5 MG TABLET PO SCH (08:21)
[2016-10-20] MEDS: CALCIUM CARBONATE 1,250 MG/5 ML UDC PO SCH (08:21)
[2016-10-20] MEDS: INSULIN GLARGINE 300 UNIT/3 ML PEN SUBQ SCH ×2 (08:23→21:39)
[2016-10-20] MEDS: POLYETHYLENE GLYCOL 3350 17 GM PACKET PO SCH (08:24)
[2016-10-20] MEDS: methylPREDNISolone SUCCINATE 40 MG/ML VIAL IVP SCH ×2 (08:28→21:21)
[2016-10-20] MEDS: LISINOPRIL 5 MG TABLET PO SCH (08:28)
[2016-10-20] MEDS: ACETAMINOPHEN 325 MG TABLET PO PRN (11:27)
[2016-10-20] MEDS: WARFARIN 2.5 MG TABLET PO SCH (13:54)
--- NOTE | 2016-10-20 14:40 | PROVIDER PROGRESS NOTE ---
Subjective - Prog Note Date Prog Note Date: 10/19/16 Prog Note Time: 14:00 - Subjective Pt reports feeling: Improved Subjective: She is still coughing but not bringing up much. Less wheezing She is still on 2 liters O 2. Objective - Vital Signs/Intake & Output Reviewed Vital Signs: Yes Vital Signs: Vital Signs x48h Temp Pulse Pulse Resp BP Pulse Ox 10/20/16 10:50 83 20 10/20/16 09:55 86 152/68 H 95 10/20/16 07:34 36.6 C 81 18 145/78 H 94 10/20/16 07:10 76 18 Intake & Output: Intake & Output 10/17/16 10/18/16 10/19/16 10/20/16 23:59 23:59 23:59 23:59 Intake Total 3125 2806 2427 Output Total 700 1095 1202 Balance 2425 1711 1225 - Objective General Appearance: positive: No acute distress, Alert, Mild distress Eyes Bilateral: positive: Normal inspection, PERRL, EOMI ENT: positive: ENT inspection nml, Pharynx nml Neck: positive: Nml inspection, Thyroid nml, No JVD, Trachea midline Respiratory: positive: Chest non-tender, No respiratory distress, Rhonchi Cardiovascular: positive: Regular rate & rhythm, No murmur Abdomen: positive: Non-tender, No organomegaly, Tenderness Skin: positive: Color nml, Warm, Dry Extremities: positive: Non-tender, Full ROM Neurologic/Psychiatric: positive: Oriented x3, CN's nml (2-12), Motor nml - Lab Results Fish Bones: 10/20/16 05:25 10/20/16 05:25 Other Labs: Lab Results x24hrs 10/20/16 10/20/16 10/20/16 Range/Units 05:25 05:25 05:25 WBC 17.1 H (4.8-10.8) x10^3/uL RBC 3.83 L (4.20-5.40) 10^6/uL Hgb 10.8 L (12.0-16.0) g/dL Hct 34.6 L (37.0-47.0) % MCV 90.3 (81.0-99.0) fL MCH 28.3 (27.0-31.0) pg MCHC 31.3 L (32.0-36.0) g/dL RDW 17.2 H (12.0-15.0) % Plt Count 296 (130-450) 10^3/uL MPV 10.4 (7.9-10.8) fL Neut # 14.8 H (1.5-6.6) 10^3/uL Lymph # 1.2 L (1.5-3.5) 10^3/uL Centre # 1.0 (0.0-1.0) 10^3/uL Eos # 0.0 (0.0-0.7) 10^3/uL Baso # 0.1 (0.0-0.1) 10^3/uL Absolute Nucleated RBC 0.02 x10^3/uL Nucleated RBCs 0.1 /100WBC PT 42.1 H (9.9-12.6) secs INR 3.7 H (0.8-1.2) Sodium 142 (135-145) mmol/L Potassium 3.8 (3.5-5.0) mmol/L Chloride 107 (101-111) mmol/L Carbon Dioxide 27 (21-32) mmol/L Anion Gap 8.0 (6-13) BUN 36 H (6-20) mg/dL Creatinine 1.1 H (0.4-1.0) mg/dL Estimated GFR (MDRD) 48 L (>89) Glucose 122 H (70-100) mg/dL Calcium 8.6 (8.5-10.3) mg/dL Phosphorus 3.0 (2.5-4.6) mg/dL Magnesium 1.6 L (1.7-2.8) mg/dL Assessment/Plan - Problem List (1) CAP (community acquired pneumonia) Impression: she is still on 2 liters O2 and has not had a fever and WBC back to nml. Will continuie with present program of antibx. (2) COPD exacerbation Impression: She has had less whezzing and is more comfortable.
--- NOTE | 2016-10-20 14:51 | PROVIDER PROGRESS NOTE ---
Assessment/Plan - Problem List (1) CAP (community acquired pneumonia) Assessment/Plan: she appears to be doing better on room air but the this afternoon had more wheezing and poorer air movement. She has had acelerated B agonist nebs. (2) COPD exacerbation Assessment/Plan: see above. She is worse and needs further treatment withnebs and steroids and antibx to have a safe discharge. - Current Meds Current Meds: Current Medications Generic Name Dose Route Start Last Admin Trade Name Freq PRN Reason Stop Dose Admin Acetaminophen 650 mg 10/18/16 02:31 10/20/16 11:27 Tylenol PO 650 mg Q4HR PRN Administration Pain 1 to 4 Albuterol/Ipratropium 3 ml 10/18/16 02:31 10/20/16 14:40 Duoneb INH 3 ml RTQID PRN Administration Wheezing Allopurinol 150 mg 10/18/16 09:00 10/20/16 08:18 Zyloprim PO 150 mg DAILY [facility] Administration Amlodipine Besylate 2.5 mg 10/18/16 12:00 10/20/16 08:21 Norvasc PO 2.5 mg DAILY [facility] Administration Aspirin 81 mg 10/18/16 09:00 10/20/16 08:18 Ecotrin PO 81 mg DAILY [facility] Administration Benzonatate 100 mg 10/18/16 20:12 10/19/16 22:05 Tessalon PO 100 mg TID PRN Administration Cough Calcium Carbonate/Glycine 600 mg 10/18/16 09:00 10/20/16 08:21 Calcium Carbonate PO 600 mg DAILY [facility] Administration Clopidogrel Bisulfate 75 mg 10/18/16 09:00 10/20/16 08:20 Plavix PO 75 mg DAILY [facility] Administration Furosemide 40 mg 10/18/16 09:00 10/20/16 08:20 Lasix PO 40 mg DAILY [facility] Administration Guaifenesin 600 mg 10/18/16 03:00 10/20/16 08:20 Mucinex PO 600 mg BID [facility] Administration Sodium Chloride 1,000 mls @ 100 mls/hr 10/18/16 03:00 10/19/16 22:55 Normal Saline 0.9% IV 100 mls/hr .Q10H [facility] Administration Azithromycin 500 mg/ Sodium 250 mls @ 250 mls/hr 10/18/16 05:00 10/20/16 08:16 Chloride IV 250 mls/hr DAILY [facility] Administration Ceftriaxone Sodium 2 gm/ 100 mls @ 200 mls/hr 10/18/16 06:00 10/19/16 08:25 Sodium Chloride IV 200 mls/hr DAILY [facility] Administration Insulin Aspart 2 - 10 unit 10/18/16 12:00 10/20/16 11:29 Novolog SUBQ 4 unit 0800,1200,1700,2100 [facility] Administration Protocol Insulin Glargine 15 unit 10/18/16 09:00 10/20/16 08:23 Lantus Solostar SUBQ 15 unit BID [facility] Administration Lisinopril 5 mg 10/18/16 09:00 10/20/16 08:28 Zestril PO 5 mg DAILY [facility] Administration Methylprednisolone 40 mg 10/19/16 09:15 10/20/16 08:28 Solu-Medrol (40mg Vial) IVP 40 mg DAILY [facility] Administration Metoprolol Succinate 50 mg 10/18/16 09:00 10/20/16 08:20 Toprol Xl PO 50 mg BID [facility] Administration Oxycodone HCl 5 mg 10/18/16 02:31 10/20/16 11:28 Roxicodone PO 5 mg Q4HR PRN Administration Pain 5 to 7 Oxycodone HCl 10 mg 10/18/16 02:31 10/20/16 06:09 Roxicodone PO 10 mg Q4HR PRN Administration Pain 8 to 10 Pantoprazole Sodium 40 mg 10/18/16 07:00 10/20/16 06:10 Protonix PO 40 mg QDAC [facility] Administration Polyethylene Glycol 17 gm 10/18/16 09:00 10/20/16 08:24 Miralax PO Not Given DAILY [facility] Potassium Chloride 40 meq 10/18/16 08:00 10/20/16 08:19 K-Dur PO 40 meq DAILYWM [facility] Administration Pravastatin Sodium 40 mg 10/18/16 21:00 10/19/16 22:18 Pravachol PO 40 mg QPM [facility] Administration Saccharomyces Boulardii 250 mg 10/18/16 08:00 10/20/16 08:18 Florastor PO 250 mg BIDWM [facility] Administration Sodium Chloride 10 ml 10/18/16 06:00 10/20/16 11:30 Normal Saline Flush 0.9% IVP Not Given Q8HR [facility] Warfarin Sodium 2.5 mg 10/19/16 14:00 10/20/16 13:54 Coumadin PO Not Given SuTuWeThSa@1400 [facility] - Lab Result Fish Bone Diagrams: 10/20/16 05:25 10/20/16 05:25 - Additional Planning My Orders: My Active Orders 10/19/16 14:00 Warfarin [Coumadin] 2.5 mg PO SuTuWeThSa@1400 10/21/16 14:00 Warfarin [Coumadin] 5 mg PO MoFr@1400 Subjective - Subjective Patient Reports: Shortness of Breath, Other (wheezing and poorer air movement) Nursing Reports: Shortness of Breath Objective Vital Signs: Vital Signs - 24 hr 10/19/16 10/19/16 10/19/16 16:51 20:00 22:00 Temperature 36.6 C 96.8 C H Heart Rate 88 Heart Rate [ 90 92 Brachial] Respiratory 18 18 16 Rate Blood Pressure 119/67 [Right Brachial artery] Blood Pressure 127/70 [Right Radial artery] O2 Saturation 97 97 10/19/16 10/20/16 10/20/16 23:35 07:10 07:34 Temperature 36.9 C 36.6 C Heart Rate 76 Heart Rate [ 93 81 Brachial] Respiratory 18 18 18 Rate Blood Pressure 129/85 H 145/78 H [Right Brachial artery] Blood Pressure [Right Radial artery] O2 Saturation 94 94 10/20/16 10/20/16 09:55 10:50 Temperature Heart Rate 83 Heart Rate [ 86 Brachial] Respiratory 20 Rate Blood Pressure 152/68 H [Right Brachial artery] Blood Pressure [Right Radial artery] O2 Saturation 95 Oxygen O2 Source [With Activity] Room air O2 Source [Without Activity] Room air O2 Source Room air I&O (Last 24 Hrs): Intake and Output Totals x24h 10/18/16 10/19/16 10/20/16 23:59 23:59 23:59 Intake Total 3125 2806 2427 Output Total 700 1095 1202 Balance 2425 1711 1225 General: Alert, Oriented x3, Cooperative HEENT: PERRLA, EOMI Neck: No JVD, No thyromegaly Lymphatic: no adenopathy Neuro: Alert, Oriented Times 3 Cardiovascular: Regular rate, No murmurs Respiratory: Wheezes, Rhonchi Abdomen: Normal bowel sounds, Soft, No tenderness Extremities: No clubbing, No cyanosis Skin: No rashes, No breakdown - Results Results: Laboratory Results WBC 17.1 x10^3/uL (4.8-10.8) H 10/20/16 05:25 RBC 3.83 10^6/uL (4.20-5.40) L 10/20/16 05:25 Hgb 10.8 g/dL (12.0-16.0) L 10/20/16 05:25 Hct 34.6 % (37.0-47.0) L 10/20/16 05:25 MCV 90.3 fL (81.0-99.0) 10/20/16 05:25 MCH 28.3 pg (27.0-31.0) 10/20/16 05:25 MCHC 31.3 g/dL (32.0-36.0) L 10/20/16 05:25 RDW 17.2 % (12.0-15.0) H 10/20/16 05:25 Plt Count 296 10^3/uL (130-450) 10/20/16 05:25 MPV 10.4 fL (7.9-10.8) 10/20/16 05:25 Neut # 14.8 10^3/uL (1.5-6.6) H 10/20/16 05:25 Lymph # 1.2 10^3/uL (1.5-3.5) L 10/20/16 05:25 [place] # 1.0 10^3/uL (0.0-1.0) 10/20/16 05:25 Eos # 0.0 10^3/uL (0.0-0.7) 10/20/16 05:25 Baso # 0.1 10^3/uL (0.0-0.1) 10/20/16 05:25 Absolute Nucleated RBC 0.02 x10^3/uL 10/20/16 05:25 Total Counted 100 10/19/16 05:55 Band Neuts % (Manual) 7 % (0-10) 10/19/16 05:55 Myelocytes % 1 % (-0) H 10/17/16 23:43 Neutrophils # (Manual) 15.3 10^3/uL (1.5-6.6) H 10/19/16 05:55 Lymphocytes # (Manual) 0.9 10^3/uL (1.5-3.5) L 10/19/16 05:55 Monocytes # (Manual) 0.9 10^3/uL (0.0-1.0) 10/19/16 05:55 Eosinophils # (Manual) 0.1 10^3/uL (0-0.7) 10/18/16 06:07 Basophils # (Manual) 0.1 10^3/uL (0-0.1) 10/18/16 06:07 Nucleated RBCs 0.1 /100WBC 10/20/16 05:25 Differential Comment MANUAL DIFFERENTIAL 10/19/16 05:55 Platelet Estimate NORMAL (130-450,000) (NORMAL) 10/19/16 05:55 RBC Morph Micro Appear NORMAL APPEARANCE (NORMAL) 10/19/16 05:55 PT 42.1 secs (9.9-12.6) H 10/20/16 05:25 INR 3.7 (0.8-1.2) H 10/20/16 05:25 APTT 31.8 secs (24.9-33.3) 10/17/16 23:43 Sodium 142 mmol/L (135-145) 10/20/16 05:25 Potassium 3.8 mmol/L (3.5-5.0) 10/20/16 05:25 Chloride 107 mmol/L (101-111) 10/20/16 05:25 Carbon Dioxide 27 mmol/L (21-32) 10/20/16 05:25 Anion Gap 8.0 (6-13) 10/20/16 05:25 BUN 36 mg/dL (6-20) H 10/20/16 05:25 Creatinine 1.1 mg/dL (0.4-1.0) H 10/20/16 05:25 Estimated GFR (MDRD) 48 (>89) L 10/20/16 05:25 Glucose 122 mg/dL (70-100) H 10/20/16 05:25 Glycated Hemoglobin 7.2 % (4.6-6.2) H 10/18/16 12:00 Estim Average Glucose 160 (70-100) H 10/18/16 12:00 Calcium 8.6 mg/dL (8.5-10.3) 10/20/16 05:25 Phosphorus 3.0 mg/dL (2.5-4.6) 10/20/16 05:25 Magnesium 1.6 mg/dL (1.7-2.8) L 10/20/16 05:25 Total Bilirubin 0.4 mg/dL (0.2-1.0) 10/17/16 23:43 AST 22 IU/L (10-42) 10/17/16 23:43 ALT 18 IU/L (10-60) 10/17/16 23:43 Alkaline Phosphatase 87 IU/L (42-121) 10/17/16 23:43 B-Natriuretic Peptide 178 pg/mL (5-100) H 10/17/16 23:43 Total Protein 7.2 g/dL (6.7-8.2) 10/17/16 23:43 Albumin 3.1 g/dL (3.2-5.5) L 10/17/16 23:43 Globulin 4.1 g/dL (2.1-4.2) 10/17/16 23:43 Albumin/Globulin Ratio 0.8 (1.0-2.2) L 10/17/16 23:43 Lipase 53 U/L (22-51) H 10/17/16 23:43
[2016-10-20] MEDS: BENZONATATE 100 MG CAPSULE PO PRN (17:09)
[2016-10-20] MEDS: PRAVASTATIN 40 MG TABLET PO SCH (21:23)
[2016-10-21] MEDS: ACETAMINOPHEN 325 MG TABLET PO PRN ×2 (00:01→07:28)
[2016-10-21] MEDS: oxyCODONE 5 MG TABLET PO PRN ×3 (00:01→11:22)
[2016-10-21] MEDS: BENZONATATE 100 MG CAPSULE PO PRN ×2 (00:05→21:46)
[2016-10-21] MEDS: BENZOCAINE/MENTHOL LOZENGE MM PRN ×3 (00:10→21:56)
[2016-10-21] MEDS: SODIUM CHLORIDE FLUSH 0.9% 10 ML SYRINGE IVP PRN (01:31)
[2016-10-21 05:27] LABS: BASOPHILS % (AUTO) 0.2 %; HCT - HEMATOCRIT 36.8 % (37.0-47.0); HGB - HEMOGLOBIN 11.6 g/dL (12.0-16.0); LYMPHOCYTES # (AUTO) 0.8 10^3/uL (1.5-3.5); LYMPHOCYTES % (AUTO) 6.5 %; MEAN CORPUSCULAR HEMOGLOBIN 27.9 pg (27.0-31.0); MEAN CORPUSCULAR HGB CONC 31.5 g/dL (32.0-36.0); MEAN CORPUSCULAR VOLUME 88.6 fL (81.0-99.0); MEAN PLATELET VOLUME 9.8 fL (7.9-10.8); MONOCYTES # (AUTO) 0.6 10^3/uL (0.0-1.0); MONOCYTES % (AUTO) 4.4 %; NEUTROPHILS # (AUTO) 11.3 10^3/uL (1.5-6.6); NEUTROPHILS % (AUTO) 88.9 %; NUCLEATED RED BLOOD CELLS AUTO 0.2 /100WBC; RED BLOOD COUNT 4.16 10^6/uL (4.20-5.40); RED CELL DISTRIBUTION WIDTH 17.3 % (12.0-15.0); UNCORRECTED WHITE BLOOD COUNT 12.7 x10^3/uL; WHITE BLOOD COUNT 12.7 x10^3/uL (4.8-10.8)
[2016-10-21 05:34] LABS: INR 2.4 (0.8-1.2); PT - PROTHROMBIN TIME 27.1 secs (9.9-12.6)
[2016-10-21 05:40] LABS: CALCIUM 8.7 mg/dL (8.5-10.3); CREATININE 1.2 mg/dL (0.4-1.0); MAGNESIUM 1.4 mg/dL (1.7-2.8); PHOSPHORUS 3.1 mg/dL (2.5-4.6); POTASSIUM 3.9 mmol/L (3.5-5.0)
[2016-10-21] MEDS: PANTOPRAZOLE 40 MG TABLET PO SCH (06:57)
[2016-10-21] MEDS: SODIUM CHLORIDE FLUSH 0.9% 10 ML SYRINGE IVP SCH ×3 (06:59→21:49)
[2016-10-21] MEDS: SACCHAROMYCES BOULARDII 250 MG CAPSULE PO SCH ×2 (07:29→17:09)
[2016-10-21] MEDS: INSULIN ASPART 300 UNIT/3 ML PEN SUBQ SCH ×4 (07:47→21:47)
[2016-10-21] MEDS: INSULIN GLARGINE 300 UNIT/3 ML PEN SUBQ SCH ×2 (08:23→21:47)
[2016-10-21] MEDS: CLOPIDOGREL 75 MG TABLET PO SCH (08:24)
[2016-10-21] MEDS: FUROSEMIDE 40 MG TABLET PO SCH (08:24)
[2016-10-21] MEDS: LISINOPRIL 5 MG TABLET PO SCH (08:24)
[2016-10-21] MEDS: guaiFENesin 600 MG TABLET PO SCH ×2 (08:24→21:45)
[2016-10-21] MEDS: amLODIPine 5 MG TABLET PO SCH ×2 (08:25→21:46)
[2016-10-21] MEDS: METOPROLOL SUCCINATE 25 MG TABLET PO SCH (08:25)
[2016-10-21] MEDS: ALLOPURINOL 100 MG TABLET PO SCH (08:25)
[2016-10-21] MEDS: ASPIRIN EC 81 MG TABLET PO SCH (08:25)
[2016-10-21] MEDS: CALCIUM CARBONATE 1,250 MG/5 ML UDC PO SCH (08:26)
[2016-10-21] MEDS: POTASSIUM CHLORIDE 20 MEQ TABLET PO SCH (08:26)
[2016-10-21] MEDS: POLYETHYLENE GLYCOL 3350 17 GM PACKET PO SCH (08:30)
[2016-10-21] MEDS: AZITHROMYCIN INJ 500 MG in SODIUM CHLORIDE 0.9% 250 ML IV SCH (09:28)
[2016-10-21] MEDS: methylPREDNISolone SUCCINATE 40 MG/ML VIAL IVP SCH (09:29)
[2016-10-21] MEDS: cefTRIAXone 2 GM in SODIUM CHLORIDE 0.9% MINIBAG 100 ML IV SCH (09:29)
[2016-10-21] MEDS ORDERED: AZITHROMYCIN 250 MG TABLET PO SCH (10:00)
[2016-10-21] MEDS: predniSONE 20 MG TABLET PO SCH (10:13)
[2016-10-21] MEDS: CEFUROXIME AXETIL 250 MG TABLET PO SCH ×2 (10:13→21:45)
--- NOTE | 2016-10-21 10:18 | Discharge Plan ---
Discharge Plan Disposition: Home, Self Care Condition: Fair Prescriptions: Cefuroxime Axetil [Ceftin] 250 mg PO BID #14 tablet predniSONE [Deltasone] 40 mg PO DAILYWM #50 tablet Ipratropium/Albuterol [Duoneb] 3 ml INH RTQID PRN #120 neb PRN Reason: Wheezing Benzonatate [Tessalon] 100 mg PO TID PRN #30 capsule PRN Reason: Cough Diet: Diabetic Activity Restrictions: Activity as Tolerated Shower Restrictions: Yes (suggest shower chair) Driving Restrictions: Yes (no driving) Weight Bearing: Full Weight Additional Instructions or Follow Up instructions: Finish your antibiotic. Use the nebulizer with the med 3-4 times per day. If you are doing well you can reduce this to 2 times a day after a week. Use the cough (perles) med as needed. Walk a little each day and try to increase as you get stronger. Make an appt to see Dr. Coyle in the next week to 10 days. Thank you, Dr. Brewster No Smoking: If you smoke, Please STOP! Call for help. Follow-up with: Taj Coyle MD [Primary Care Provider] - 1 Week
[2016-10-21] MEDS ORDERED: WARFARIN 5 MG TABLET PO SCH (14:00)
[2016-10-21] MEDS ORDERED: MAGNESIUM OXIDE 400 MG TABLET PO SCH (19:15)
--- NOTE | 2016-10-21 21:46 | XRAY Preliminary Report ---
Exam: XR Chest 2 View PA/LAT IMPRESSION: Subtle opacities in the left lung base can be seen in setting of atelectasis, aspiration or infectious process. [facility] SITE ID: [id number]
[2016-10-21] MEDS: PRAVASTATIN 40 MG TABLET PO SCH (21:48)
--- NOTE | 2016-10-21 21:48 | XRAY Report ---
EXAM: CHEST RADIOGRAPHY EXAM DATE: 10/21/2016 09:36 PM. CLINICAL HISTORY: L side and L chest pain, cramping. COMPARISON: None. TECHNIQUE: 2 views. FINDINGS: Lungs/Pleura: Several irregular opacities in the left infrahilar station. No pleural effusion or pneu mothorax. Mediastinum: The patient is status post median sternotomy and CABG. Other: None. IMPRESSION: Subtle opacities in the left lung base can be seen in setting of atelectasis, aspiration or infectious process. [facility] Referring Provider Line: [phone] SITE ID: [id number]
[2016-10-22] MEDS: SODIUM CHLORIDE FLUSH 0.9% 10 ML SYRINGE IVP SCH ×3 (05:43→21:04)
[2016-10-22 06:19] LABS: BASOPHILS # (AUTO) 0.1 10^3/uL (0.0-0.1); BASOPHILS % (AUTO) 0.3 %; EOSINOPHILS % (AUTO) 0.1 %; HCT - HEMATOCRIT 29.2 % (37.0-47.0); HGB - HEMOGLOBIN 9.4 g/dL (12.0-16.0); LYMPHOCYTES # (AUTO) 3.4 10^3/uL (1.5-3.5); LYMPHOCYTES % (AUTO) 17.8 %; MEAN CORPUSCULAR HEMOGLOBIN 28.3 pg (27.0-31.0); MEAN CORPUSCULAR HGB CONC 32.1 g/dL (32.0-36.0); MEAN PLATELET VOLUME 9.6 fL (7.9-10.8); MONOCYTES % (AUTO) 10.5 %; NEUTROPHILS # (AUTO) 13.6 10^3/uL (1.5-6.6); NEUTROPHILS % (AUTO) 71.3 %; NUCLEATED RED BLOOD CELLS AUTO 0.1 /100WBC; RED BLOOD COUNT 3.32 10^6/uL (4.20-5.40); RED CELL DISTRIBUTION WIDTH 16.8 % (12.0-15.0); UNCORRECTED WHITE BLOOD COUNT 19.1 x10^3/uL; WHITE BLOOD COUNT 19.1 x10^3/uL (4.8-10.8)
[2016-10-22] MEDS: PANTOPRAZOLE 40 MG TABLET PO SCH (06:24)
[2016-10-22 06:25] LABS: INR 2.1 (0.8-1.2)
[2016-10-22 06:37] LABS: CALCIUM 8.6 mg/dL (8.5-10.3); CREATININE 1.1 mg/dL (0.4-1.0); MAGNESIUM 1.5 mg/dL (1.7-2.8); PHOSPHORUS 3.2 mg/dL (2.5-4.6); POTASSIUM 3.6 mmol/L (3.5-5.0)
[2016-10-22 06:42] LABS: PLATELET ESTIMATE, MANUAL NORMAL (130-450,000) (NORMAL); PLATELET MORPHOLOGY NORMAL APPEARANCE (NORMAL)
--- NOTE | 2016-10-22 06:42 | PROVIDER PROGRESS NOTE ---
Lock Technician Note - Lock Technician Note Lock Technician Note: I was asked to see this patient this evening, for complaints of pain in her left Side. The patient reports what she describes as crampy pain in the left thorax under the axilla, with occasional radiation around the front of her chest. She also notes that she feels sore all over from persistent coughing due to her pneumonia. At the time that I saw her, and this discomfort had been waxing and waning for about 45 minutes. The pain was not associated with radiation to the jaw or arm. She may have had some diaphoresis, although her thinks that was earlier in the day. She had no shortness of breath or nausea, or palpitations.. On examination, she is sitting in a chair, and appears comfortable. Neck shows obvious JVD. Cardiac exam:chest regular rate and rhythm, without murmur. Abdomen is soft. EKG and chest x-ray were ordered. 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 This is unchanged from admission. Chest x-ray shows opacities at the left base, consistent with infiltrate versus atelectasis. Review of chest CT from admission shows old left-sided rib fractures, nonhealing. Assessment and plan: Chest pain. I believe her discomfort is related to muscle spasm,, caused by persistent coughing.. Her pain does not appear to be cardiac. Vital signs are stable. She should have followup chest x-ray in the next 2 weeks to be sure that the abnormalities are resolving. I asked her nurse to offer her Tessalon 3 times a day to help settle down the cough. My thoughts were discussed with the patient and her , and all questions answered.
[2016-10-22] MEDS: IPRATROPIUM/ALBUTEROL 3 ML NEB INH PRN ×3 (07:00→16:20)
[2016-10-22] MEDS: INSULIN ASPART 300 UNIT/3 ML PEN SUBQ SCH ×4 (08:42→21:03)
[2016-10-22] MEDS: BENZOCAINE/MENTHOL LOZENGE MM PRN ×3 (08:49→21:04)
[2016-10-22] MEDS: BENZONATATE 100 MG CAPSULE PO PRN ×2 (08:50→17:11)
[2016-10-22] MEDS: oxyCODONE 5 MG TABLET PO PRN ×2 (08:50→12:29)
[2016-10-22] MEDS: POTASSIUM CHLORIDE 20 MEQ TABLET PO SCH (08:52)
[2016-10-22] MEDS: SACCHAROMYCES BOULARDII 250 MG CAPSULE PO SCH ×2 (08:53→17:11)
[2016-10-22] MEDS: predniSONE 20 MG TABLET PO SCH (08:53)
[2016-10-22] MEDS: ALLOPURINOL 100 MG TABLET PO SCH (08:53)
[2016-10-22 08:54] LABS: BILIRUBIN,URINE NEGATIVE (NEGATIVE); PH,URINE 5.5 PH (5.0-7.5)
[2016-10-22] MEDS: ASPIRIN EC 81 MG TABLET PO SCH (08:54)
[2016-10-22] MEDS: levoFLOXacin 250 MG TABLET PO SCH (08:54)
[2016-10-22] MEDS: guaiFENesin 600 MG TABLET PO SCH ×2 (08:54→21:00)
[2016-10-22] MEDS: FUROSEMIDE 40 MG TABLET PO SCH (08:54)
[2016-10-22] MEDS: CLOPIDOGREL 75 MG TABLET PO SCH (08:54)
[2016-10-22] MEDS: POLYETHYLENE GLYCOL 3350 17 GM PACKET PO SCH (08:55)
[2016-10-22] MEDS: LISINOPRIL 5 MG TABLET PO SCH (08:55)
[2016-10-22] MEDS: METOPROLOL SUCCINATE 50 MG TABLET PO SCH ×2 (08:55→21:00)
[2016-10-22] MEDS: INSULIN GLARGINE 300 UNIT/3 ML PEN SUBQ SCH ×2 (08:58→21:02)
[2016-10-22 09:10] LABS: WBC,URINE 0-3 /HPF (0-5)
[2016-10-22 09:11] LABS: UR CULTURE IF IND NOT INDICATED
[2016-10-22] MEDS: MAGNESIUM OXIDE 400 MG TABLET PO SCH ×2 (11:29→17:11)
[2016-10-22] MEDS: CALCIUM CARBONATE 1,250 MG/5 ML UDC PO SCH (12:14)
[2016-10-22] MEDS: WARFARIN 2.5 MG TABLET PO SCH (13:42)
[2016-10-22] MEDS: ONDANSETRON ODT 4 MG TABLET TL PRN ×2 (13:59→19:56)
--- NOTE | 2016-10-22 16:02 | PROVIDER PROGRESS NOTE ---
Assessment/Plan - Problem List (1) CAP (community acquired pneumonia) Assessment/Plan: patient presented with shortness of breath and found to have a pneumonia on CT chest Initially received IV ceftriaxone and azithromycin for 3 days then switched to cefuroxime and azithromycin PO Yesterday patient began developing dizziness and diaphoresis with ambulation and walking She was suppose to be discharged yesterday but discharge held secondary to these new findings Today patient has increasing WBC up to 19.9 and is tachycardic Her CXR from yesterday shows pneumonia Will change abx to PO levaquin today Monitor HR and re-check CBC tomorrow AM If improving then will be able to go home tomorrow (2) COPD exacerbation Assessment/Plan: On PO prednisone and duonebs Not on O2 Decreased wheezing Improving (3) Chest pain Assessment/Plan: Had chest pain again last night Cardiac workup negative Likely secondary to coughing with history of rib fx On tesslon pearles and mucinex (4) Diabetes Qualifiers: Diabetes mellitus type: type 2 Assessment/Plan: COntinue home dose of lantus and SS insulin (5) History of pulmonary embolism Assessment/Plan: On coumadin INR therapeutic (6) Hypertension Assessment/Plan: BP is low normal Holding antihypertensives for BP lower than 100 systolic (7) Hyperlipidemia Assessment/Plan: On statin Stable (8) Chronic back pain Assessment/Plan: Continue oxycodone Stable (9) Lung mass Assessment/Plan: 3 cm mass seen on CT worse than prior CT Needs outpatient follow up CT or PET after resolution of infection - Current Meds Current Meds: Current Medications Generic Name Dose Route Start Last Admin Trade Name Freq PRN Reason Stop Dose Admin Acetaminophen 650 mg 10/18/16 02:31 10/21/16 07:28 Tylenol PO 650 mg Q4HR PRN Administration Pain 1 to 4 Albuterol/Ipratropium 3 ml 10/18/16 02:31 10/22/16 11:15 Duoneb INH 3 ml RTQID PRN Administration Wheezing Allopurinol 150 mg 10/18/16 09:00 10/22/16 08:53 Zyloprim PO 150 mg DAILY [facility] Administration Amlodipine Besylate 2.5 mg 10/21/16 21:00 10/21/16 21:46 Norvasc PO Not Given QPM [facility] Aspirin 81 mg 10/18/16 09:00 10/22/16 08:54 Ecotrin PO 81 mg DAILY [facility] Administration Benzonatate 100 mg 10/18/16 20:12 10/22/16 08:50 Tessalon PO 100 mg TID PRN Administration Cough Calcium Carbonate/Glycine 600 mg 10/22/16 12:00 10/22/16 12:14 Calcium Carbonate PO 600 mg 1200 [facility] Administration Clopidogrel Bisulfate 75 mg 10/18/16 09:00 10/22/16 08:54 Plavix PO 75 mg DAILY [facility] Administration Docusate Sodium 100 mg 10/18/16 11:21 10/22/16 08:57 Colace 100mg Capsule PO 100 mg BID PRN Administration Constipation Furosemide 40 mg 10/18/16 09:00 10/22/16 08:54 Lasix PO 40 mg DAILY [facility] Administration Guaifenesin 600 mg 10/18/16 03:00 10/22/16 08:54 Mucinex PO 600 mg BID [facility] Administration Insulin Aspart 2 - 10 unit 10/18/16 12:00 10/22/16 12:17 Novolog SUBQ 2 unit 0800,1200,1700,2100 [facility] Administration Protocol Insulin Glargine 15 unit 10/18/16 09:00 10/22/16 08:58 Lantus Solostar SUBQ 15 unit BID [facility] Administration Levofloxacin 750 mg 10/22/16 09:00 10/22/16 08:54 Levaquin PO 750 mg DAILY [facility] Administration Lisinopril 5 mg 10/18/16 09:00 10/22/16 08:55 Zestril PO 5 mg DAILY [facility] Administration Magnesium Oxide 400 mg 10/22/16 08:32 10/22/16 11:29 Mag Ox PO 400 mg 1100,1700 [facility] Administration Metoprolol Succinate 50 mg 10/22/16 09:00 10/22/16 08:55 Toprol Xl PO 50 mg BID [facility] Administration Ondansetron HCl 4 mg 10/22/16 13:52 10/22/16 13:59 Zofran Odt TL 4 mg Q4HR PRN Administration Nausea / Vomiting Oxycodone HCl 5 mg 10/18/16 02:31 10/20/16 11:28 Roxicodone PO 5 mg Q4HR PRN Administration Pain 5 to 7 Oxycodone HCl 10 mg 10/18/16 02:31 10/22/16 12:29 Roxicodone PO 10 mg Q4HR PRN Administration Pain 8 to 10 Pantoprazole Sodium 40 mg 10/18/16 07:00 10/22/16 06:24 Protonix PO 40 mg QDAC [facility] Administration Polyethylene Glycol 17 gm 10/18/16 09:00 10/22/16 08:55 Miralax PO 17 gm DAILY [facility] Administration Potassium Chloride 40 meq 10/18/16 08:00 10/22/16 08:52 K-Dur PO 40 meq DAILYWM [facility] Administration Pravastatin Sodium 40 mg 10/18/16 21:00 10/21/16 21:48 Pravachol PO 40 mg QPM [facility] Administration Prednisone 40 mg 10/21/16 10:00 10/22/16 08:53 Deltasone PO 40 mg DAILYWM [facility] Administration Saccharomyces Boulardii 250 mg 10/18/16 08:00 10/22/16 08:53 Florastor PO 250 mg BIDWM [facility] Administration Sodium Chloride 10 ml 10/18/16 02:31 10/21/16 01:31 Normal Saline Flush 0.9% IVP 10 ml PRN PRN Administration NEEDED PER PROVIDER ORDERS Sodium Chloride 10 ml 10/18/16 06:00 10/22/16 13:41 Normal Saline Flush 0.9% IVP Not Given Q8HR [facility] Throat Lozenges 1 lozenge 10/21/16 00:03 10/22/16 12:28 Cepacol MM 1 lozenge Q2HR PRN Administration Throat pain Warfarin Sodium 5 mg 10/21/16 14:00 10/21/16 14:17 Coumadin PO 5 mg [id number] [facility] Administration Warfarin Sodium 2.5 mg 10/19/16 14:00 10/22/16 13:42 Coumadin PO 2.5 mg [id number] [facility] Administration - Lab Result Lab results reviewed: Yes Fish Bone Diagrams: 10/22/16 06:13 10/22/16 06:13 - EKG Results EKG Interpreted Independently: Yes - Diagnostic Imaging Results Diagnostic Imaging Results: positive: Final report reviewed - Additional Planning Condition/Complexity: Guarded My Orders: My Active Orders 10/22/16 09:00 levoFLOXacin [Levaquin] 750 mg PO DAILY 10/22/16 12:00 Calcium Carbonate 600 mg PO 1200 10/22/16 13:52 Ondansetron Odt [Zofran Odt] 4 mg TL Q4HR PRN Consult/Specialty: PT Plan Discussed with:: Patient, Spouse Time Spent: 15-30 minutes Subjective - Subjective Patient Reports: Chest Pain (Continues to have chest pain in lower ribs that goes around the chest to the back.), Shortness of Breath (Improved), Other (No fevers or chills.) Nursing Reports: No Complaints Objective Vital Signs: Vital Signs - 24 hr 10/21/16 10/21/16 10/21/16 19:46 19:50 21:21 Temperature 36.5 C Heart Rate 96 Heart Rate [ 96 Brachial] Respiratory 24 20 Rate Blood Pressure 118/77 115/66 [Right Brachial artery] Blood Pressure [Right Radial artery] O2 Saturation 93 10/21/16 10/22/16 10/22/16 21:50 00:25 07:00 Temperature 36.4 C L Heart Rate 108 H Heart Rate [ 101 H 104 H Brachial] Respiratory 20 20 Rate Blood Pressure 134/80 H [Right Brachial artery] Blood Pressure 93/55 L [Right Radial artery] O2 Saturation 97 10/22/16 10/22/16 10/22/16 08:54 11:15 14:06 Temperature 36.5 C 36.8 C Heart Rate 110 H Heart Rate [ 109 H 112 H Brachial] Respiratory 19 16 20 Rate Blood Pressure 97/60 [Right Brachial artery] Blood Pressure 122/67 [Right Radial artery] O2 Saturation 94 93 Oxygen O2 Source [With Activity] Room air O2 Source [Without Activity] Room air O2 Source Room air I&O (Last 24 Hrs): Intake and Output Totals x24h 10/20/16 10/21/16 10/22/16 23:59 23:59 23:59 Intake Total 3755 2325 400 Output Total 2202 400 Balance 1553 1925 400 General: Alert, Oriented x3, Cooperative, No acute distress HEENT: Atraumatic, PERRLA, EOMI, Mucous membr. moist/pink Neck: Supple, No JVD, No thyromegaly, +2 carotid pulse wo bruit, No LAD Lymphatic: no adenopathy Neuro: Alert, Non Focal, CN 2-12 Grossly Intact, Oriented Times 3 Cardiovascular: Regular rate, Normal S1, Normal S2, Other (tachycardic) Respiratory: Chest non-tender, No respiratory distress, Wheezes (mild), Rhonchi Abdomen: Normal bowel sounds, Soft, No tenderness, No hepatospenomegaly, No masses Extremities: No clubbing, No cyanosis, Normal pulses, No tenderness/swelling Skin: No rashes, No breakdown - Results Results: Laboratory Results WBC 19.1 x10^3/uL (4.8-10.8) H 10/22/16 06:13 RBC 3.32 10^6/uL (4.20-5.40) L 10/22/16 06:13 Hgb 9.4 g/dL (12.0-16.0) L 10/22/16 06:13 Hct 29.2 % (37.0-47.0) L 10/22/16 06:13 MCV 88.0 fL (81.0-99.0) 10/22/16 06:13 MCH 28.3 pg (27.0-31.0) 10/22/16 06:13 MCHC 32.1 g/dL (32.0-36.0) 10/22/16 06:13 RDW 16.8 % (12.0-15.0) H 10/22/16 06:13 Plt Count 314 10^3/uL (130-450) 10/22/16 06:13 MPV 9.6 fL (7.9-10.8) 10/22/16 06:13 Neut # 13.6 10^3/uL (1.5-6.6) H 10/22/16 06:13 Lymph # 3.4 10^3/uL (1.5-3.5) 10/22/16 06:13 [place] # 2.0 10^3/uL (0.0-1.0) H 10/22/16 06:13 Eos # 0.0 10^3/uL (0.0-0.7) 10/22/16 06:13 Baso # 0.1 10^3/uL (0.0-0.1) 10/22/16 06:13 Absolute Nucleated RBC 0.02 x10^3/uL 10/22/16 06:13 Total Counted 100 10/19/16 05:55 Band Neuts % (Manual) 7 % (0-10) 10/19/16 05:55 Myelocytes % 1 % (-0) H 10/17/16 23:43 Neutrophils # (Manual) 15.3 10^3/uL (1.5-6.6) H 10/19/16 05:55 Lymphocytes # (Manual) 0.9 10^3/uL (1.5-3.5) L 10/19/16 05:55 Monocytes # (Manual) 0.9 10^3/uL (0.0-1.0) 10/19/16 05:55 Eosinophils # (Manual) 0.1 10^3/uL (0-0.7) 10/18/16 06:07 Basophils # (Manual) 0.1 10^3/uL (0-0.1) 10/18/16 06:07 Nucleated RBCs 0.1 /100WBC 10/22/16 06:13 Differential Comment MANUAL DIFFERENTIAL 10/19/16 05:55 Manual Slide Review Indicated 10/22/16 06:13 Platelet Estimate NORMAL (130-450,000) (NORMAL) 10/22/16 06:13 Platelet Morphology NORMAL APPEARANCE (NORMAL) 10/22/16 06:13 RBC Morph Micro Appear NORMAL APPEARANCE (NORMAL) 10/22/16 06:13 PT 24.0 secs (9.9-12.6) H 10/22/16 06:13 INR 2.1 (0.8-1.2) H 10/22/16 06:13 APTT 31.8 secs (24.9-33.3) 10/17/16 23:43 Sodium 142 mmol/L (135-145) 10/22/16 06:13 Potassium 3.6 mmol/L (3.5-5.0) 10/22/16 06:13 Chloride 103 mmol/L (101-111) 10/22/16 06:13 Carbon Dioxide 30 mmol/L (21-32) 10/22/16 06:13 Anion Gap 9.0 (6-13) 10/22/16 06:13 BUN 43 mg/dL (6-20) H 10/22/16 06:13 Creatinine 1.1 mg/dL (0.4-1.0) H 10/22/16 06:13 Estimated GFR (MDRD) 48 (>89) L 10/22/16 06:13 Glucose 117 mg/dL (70-100) H 10/22/16 06:13 Glycated Hemoglobin 7.2 % (4.6-6.2) H 10/18/16 12:00 Estim Average Glucose 160 (70-100) H 10/18/16 12:00 Calcium 8.6 mg/dL (8.5-10.3) 10/22/16 06:13 Phosphorus 3.2 mg/dL (2.5-4.6) 10/22/16 06:13 Magnesium 1.5 mg/dL (1.7-2.8) L 10/22/16 06:13 Total Bilirubin 0.4 mg/dL (0.2-1.0) 10/17/16 23:43 AST 22 IU/L (10-42) 10/17/16 23:43 ALT 18 IU/L (10-60) 10/17/16 23:43 Alkaline Phosphatase 87 IU/L (42-121) 10/17/16 23:43 B-Natriuretic Peptide 178 pg/mL (5-100) H 10/17/16 23:43 Total Protein 7.2 g/dL (6.7-8.2) 10/17/16 23:43 Albumin 3.1 g/dL (3.2-5.5) L 10/17/16 23:43 Globulin 4.1 g/dL (2.1-4.2) 10/17/16 23:43 Albumin/Globulin Ratio 0.8 (1.0-2.2) L 10/17/16 23:43 Lipase 53 U/L (22-51) H 10/17/16 23:43 Urine Color YELLOW 10/22/16 08:45 Urine Clarity HAZY (CLEAR) 10/22/16 08:45 Urine pH 5.5 PH (5.0-7.5) 10/22/16 08:45 Ur Specific [place] 1.010 (1.002-1.030) 10/22/16 08:45 Urine Protein NEGATIVE mg/dL (NEGATIVE) 10/22/16 08:45 Urine Glucose (UA) NEGATIVE mg/dL (NEGATIVE) 10/22/16 08:45 Urine Ketones NEGATIVE mg/dL (NEGATIVE) 10/22/16 08:45 Urine Occult Blood NEGATIVE (NEGATIVE) 10/22/16 08:45 Urine Nitrite NEGATIVE (NEGATIVE) 10/22/16 08:45 Urine Bilirubin NEGATIVE (NEGATIVE) 10/22/16 08:45 Urine Urobilinogen 0.2 (NORMAL) E.U./dL (NORMAL) 10/22/16 08:45 Ur Leukocyte Esterase NEGATIVE (NEGATIVE) 10/22/16 08:45 Urine RBC 0-5 /HPF (0-5) 10/22/16 08:45 Urine WBC 0-3 /HPF (0-5) 10/22/16 08:45 Ur Squamous Epith Cells MOD Squamous (<= Few) H 10/22/16 08:45 Urine Bacteria Rare /HPF (None Seen) 10/22/16 08:45 Urine Culture Comments NOT INDICATED 10/22/16 08:45
[2016-10-22] MEDS: amLODIPine 5 MG TABLET PO SCH (20:59)
[2016-10-22] MEDS: PRAVASTATIN 40 MG TABLET PO SCH (21:02)
[2016-10-23] MEDS: oxyCODONE 5 MG TABLET PO PRN ×3 (01:41→21:39)
[2016-10-23] MEDS: PANTOPRAZOLE 40 MG TABLET PO SCH (05:33)
[2016-10-23] MEDS: SODIUM CHLORIDE FLUSH 0.9% 10 ML SYRINGE IVP SCH ×3 (05:34→21:14)
[2016-10-23] MEDS: INSULIN GLARGINE 300 UNIT/3 ML PEN SUBQ SCH ×2 (08:26→21:13)
[2016-10-23] MEDS: POTASSIUM CHLORIDE 20 MEQ TABLET PO SCH (08:27)
[2016-10-23] MEDS: METOPROLOL SUCCINATE 50 MG TABLET PO SCH ×2 (08:27→21:05)
[2016-10-23] MEDS: levoFLOXacin 250 MG TABLET PO SCH (08:27)
[2016-10-23] MEDS: CLOPIDOGREL 75 MG TABLET PO SCH (08:27)
[2016-10-23] MEDS: SACCHAROMYCES BOULARDII 250 MG CAPSULE PO SCH ×2 (08:27→16:58)
[2016-10-23] MEDS: FUROSEMIDE 40 MG TABLET PO SCH (08:27)
[2016-10-23] MEDS: ALLOPURINOL 100 MG TABLET PO SCH (08:27)
[2016-10-23] MEDS: predniSONE 20 MG TABLET PO SCH (08:29)
[2016-10-23] MEDS: LISINOPRIL 5 MG TABLET PO SCH (08:29)
[2016-10-23] MEDS: ASPIRIN EC 81 MG TABLET PO SCH (08:29)
[2016-10-23] MEDS: POLYETHYLENE GLYCOL 3350 17 GM PACKET PO SCH (09:57)
[2016-10-23] MEDS: INSULIN ASPART 300 UNIT/3 ML PEN SUBQ SCH ×4 (09:57→21:13)
[2016-10-23] MEDS: guaiFENesin 600 MG TABLET PO SCH ×2 (09:57→21:04)
[2016-10-23] MEDS: ACETAMINOPHEN 325 MG TABLET PO PRN (10:04)
[2016-10-23 10:14] LABS: BASOPHILS % (AUTO) 0.3 %; EOSINOPHILS % (AUTO) 0.7 %; HCT - HEMATOCRIT 26.7 % (37.0-47.0); HGB - HEMOGLOBIN 8.7 g/dL (12.0-16.0); LYMPHOCYTES % (AUTO) 19.3 %; MEAN CORPUSCULAR HEMOGLOBIN 28.7 pg (27.0-31.0); MEAN CORPUSCULAR HGB CONC 32.5 g/dL (32.0-36.0); MEAN CORPUSCULAR VOLUME 88.3 fL (81.0-99.0); MEAN PLATELET VOLUME 9.9 fL (7.9-10.8); MONOCYTES % (AUTO) 7.3 %; NEUTROPHILS % (AUTO) 72.4 %; RED BLOOD COUNT 3.03 10^6/uL (4.20-5.40); RED CELL DISTRIBUTION WIDTH 17.2 % (12.0-15.0); UNCORRECTED WHITE BLOOD COUNT 19.9 x10^3/uL; WHITE BLOOD COUNT 19.9 x10^3/uL (4.8-10.8)
[2016-10-23 10:28] LABS: BAND NEUTROPHILS % (MANUAL) 0 %
[2016-10-23 11:03] LABS: EOSINOPHILS % (MANUAL) 1 %; LYMPHOCYTES % (MANUAL) 23 %; NEUTROPHILS % (MANUAL) 69 %; TOTAL CELLS COUNTED 100
[2016-10-23 11:04] LABS: NP AUTO DIFFERENTIAL? YES; NP MAN DIFFERENTIAL? NO
[2016-10-23] MEDS: HEPARIN 25,000 UNITS/500 ML 500 ML IV SCH (12:08)
[2016-10-23] MEDS: CALCIUM CARBONATE 1,250 MG/5 ML UDC PO SCH (12:17)
[2016-10-23] MEDS: MAGNESIUM OXIDE 400 MG TABLET PO SCH ×2 (12:17→16:58)
[2016-10-23] MEDS: PANTOPRAZOLE 40 MG VIAL IVP SCH ×2 (12:20→21:04)
[2016-10-23 17:00] LABS: HGB - HEMOGLOBIN 8.3 g/dL (12.0-16.0); MEAN CORPUSCULAR HEMOGLOBIN 28.5 pg (27.0-31.0); MEAN CORPUSCULAR HGB CONC 31.9 g/dL (32.0-36.0); MEAN CORPUSCULAR VOLUME 89.4 fL (81.0-99.0); MEAN PLATELET VOLUME 9.7 fL (7.9-10.8); RED BLOOD COUNT 2.91 10^6/uL (4.20-5.40); RED CELL DISTRIBUTION WIDTH 16.9 % (12.0-15.0); WHITE BLOOD COUNT 18.4 x10^3/uL (4.8-10.8)
--- NOTE | 2016-10-23 18:07 | PROVIDER PROGRESS NOTE ---
Assessment/Plan - Problem List (1) GI bleed Assessment/Plan: Patient continues to be tachycardic and feels dizzy when she stands She is also continuing to have SOB with exertion Today her Hb is down to 8.7 from baseline of 11.4 She does not recall having dark or bloody stools No abdominal pain or hematomas She does not have any changes in mentation Patient is on plavix, asa and coumadin which put her at risk of bleed Concern is for likely upper GI bleed Plan: Place 2 large bore IVs IV protonix BID discontinue asa, plavix and coumadin Place on heparin drip for history of PE in case she needs EGD/Colonoscopy or surgical intervention Abd US to look for any intra abd bleeding Stool guiaic Monitor H&H q 6 hours Transfuse PRCBs if hb less than 7 Will get Surgery consult if guiaic positive (2) CAP (community acquired pneumonia) Assessment/Plan: patient presented with shortness of breath and found to have a pneumonia on CT chest Initially received IV ceftriaxone and azithromycin for 3 days then switched to cefuroxime and azithromycin PO WBC still elevated today but likely related to GI bleeding Her repeat CXR showed pneumonia On Levaquin PO day 2 Patient hypoxic with exertion will likely need at least 2-3 L of O2 at home Will do walk test prior to discharge (3) COPD exacerbation Assessment/Plan: On PO prednisone and duonebs Not on O2 at rest but still SOB with exertion and requires O2 with exertion Decreased wheezing Improving (4) Chest pain Assessment/Plan: Cardiac workup negative Likely secondary to coughing with history of rib fx On tesslon pearles and mucinex (5) Diabetes Qualifiers: Diabetes mellitus type: type 2 Assessment/Plan: COntinue home dose of lantus and SS insulin Stable (6) History of pulmonary embolism Assessment/Plan: Stop coumadin secondary to bleeding Will place on heparin drip (7) Hypertension Assessment/Plan: BP is low normal Holding antihypertensives for BP lower than 100 systolic Likely hypotensive secondary to bleeding (8) Hyperlipidemia Assessment/Plan: On statin Stable (9) Chronic back pain Assessment/Plan: Continue oxycodone Stable (10) Lung mass Assessment/Plan: 3 cm mass seen on CT worse than prior CT Needs outpatient follow up CT or PET after resolution of infection - Current Meds Current Meds: Current Medications Generic Name Dose Route Start Last Admin Trade Name Freq PRN Reason Stop Dose Admin Acetaminophen 650 mg 10/18/16 02:31 10/23/16 10:04 Tylenol PO 650 mg Q4HR PRN Administration Pain 1 to 4 Albuterol/Ipratropium 3 ml 10/18/16 02:31 10/22/16 16:20 Duoneb INH 3 ml RTQID PRN Administration Wheezing Allopurinol 150 mg 10/18/16 09:00 10/23/16 08:27 Zyloprim PO 150 mg DAILY [facility]WRENCE Administration Amlodipine Besylate 2.5 mg 10/21/16 21:00 10/22/16 20:59 Norvasc PO 2.5 mg QPM LAWRENCE Administration Benzonatate 100 mg 10/18/16 20:12 10/22/16 17:11 Tessalon PO 100 mg TID PRN Administration Cough Calcium Carbonate/Glycine 600 mg 10/22/16 12:00 10/23/16 12:17 Calcium Carbonate PO 600 mg 1200 LAWRENCE Administration Docusate Sodium 100 mg 10/18/16 11:21 10/22/16 08:57 Colace 100mg Capsule PO 100 mg BID PRN Administration Constipation Furosemide 40 mg 10/18/16 09:00 10/23/16 08:27 Lasix PO 40 mg DAILY [facility]ENCE Administration Guaifenesin 600 mg 10/18/16 03:00 10/23/16 09:57 Mucinex PO 600 mg BID LAWRENCE Administration Heparin Sodium/Dextrose 500 mls @ 24.492 mls/hr 10/23/16 11:00 10/23/16 12:08 IV 24.492 mls/hr .[id number] LAWRENCE Administration Protocol 15 UNIT/KG/HR Insulin Aspart 2 - 10 unit 10/18/16 12:00 10/23/16 17:10 Novolog SUBQ 2 unit 0800,1200,1700,2100 LAWRENCE Administration Protocol Insulin Glargine 15 unit 10/18/16 09:00 10/23/16 08:26 Lantus Solostar SUBQ 15 unit BID LA[facility] Administration Levofloxacin 750 mg 10/22/16 09:00 10/23/16 08:27 Levaquin PO 750 mg DAILY [facility] Administration Lisinopril 5 mg 10/18/16 09:00 10/23/16 08:29 Zestril PO 5 mg DAILY [facility] Administration Magnesium Oxide 400 mg 10/22/16 08:32 10/23/16 16:58 Mag Ox PO 400 mg 1100,1700 LAWRENCE Administration Metoprolol Succinate 50 mg 10/22/16 09:00 10/23/16 08:27 Toprol Xl PO 50 mg BID LAWRENCE Administration Ondansetron HCl 4 mg 10/22/16 13:52 10/22/16 19:56 Zofran Odt TL 4 mg Q4HR PRN Administration Nausea / Vomiting Oxycodone HCl 5 mg 10/18/16 02:31 10/23/16 01:41 Roxicodone PO 5 mg Q4HR PRN Administration Pain 5 to 7 Oxycodone HCl 10 mg 10/18/16 02:31 10/23/16 08:28 Roxicodone PO 10 mg Q4HR PRN Administration Pain 8 to 10 Pantoprazole Sodium 40 mg 10/23/16 11:00 10/23/16 12:20 Protonix IVP 40 mg BID [facility] Administration Polyethylene Glycol 17 gm 10/18/16 09:00 10/23/16 09:57 Miralax PO Not Given DAILY [facility]ENCE Potassium Chloride 40 meq 10/18/16 08:00 10/23/16 08:27 K-Dur PO 40 meq DAILYWM LA[facility]ENCE Administration Pravastatin Sodium 40 mg 10/18/16 21:00 10/22/16 21:02 Pravachol PO 40 mg QPM [facility] Administration Saccharomyces Boulardii 250 mg 10/18/16 08:00 10/23/16 16:58 Florastor PO 250 mg BIDWM [facility] Administration Sodium Chloride 10 ml 10/18/16 02:31 10/21/16 01:31 Normal Saline Flush 0.9% IVP 10 ml PRN PRN Administration NEEDED PER PROVIDER ORDERS Sodium Chloride 10 ml 10/18/16 06:00 10/23/16 12:21 Normal Saline Flush 0.9% IVP 10 ml Q8HR [facility] Administration Throat Lozenges 1 lozenge 10/21/16 00:03 10/22/16 21:04 Cepacol MM 1 lozenge Q2HR PRN Administration Throat pain - Lab Result Lab results reviewed: Yes Fish Bone Diagrams: 10/23/16 16:44 10/22/16 06:13 - EKG Results EKG Interpreted Independently: Yes - Diagnostic Imaging Results Diagnostic Imaging Results: positive: Final report reviewed - Additional Planning Condition/Complexity: Guarded My Orders: My Active Orders 10/23/16 Guiaic [OCCULT BLOOD IN PAT. SINGLE] [RAPID] Routine 10/23/16 10:57 Initiate VTE Heparin Protocol [RC] .protocol Notify Provider - Specific Ins [RC] PRN OCCULT BLOOD IN PAT. SINGLE [RAPID] Routine Heparin 2,000 unit IVP Q6H PRN 10/23/16 11:00 Heparin 25,000 Units/500 ml 500 ml IV 15 unit/kg/hr Pantoprazole [Protonix] 40 mg IVP BID 10/23/16 18:00 Anti Xa [FACTOR XA] [COAG] Timed 10/23/16 21:00 Abdomen Complete [US] Routine 10/23/16 22:00 CBC W/O DIFF (HEMOGRAM) [HEME] Q6H 10/24/16 04:00 CBC W/O DIFF (HEMOGRAM) [HEME] Q6H 10/24/16 05:00 CMP, RFLX TO IONIZED CA IF [CHEM] DAILYLAB MAGNESIUM [CHEM] DAILYLAB PHOSPHORUS [CHEM] DAILYLAB PT WITH INR [COAG] DAILYLAB 10/24/16 10:00 CBC W/O DIFF (HEMOGRAM) [HEME] Q6H 10/24/16 16:00 CBC W/O DIFF (HEMOGRAM) [HEME] Q6H 10/24/16 22:00 CBC W/O DIFF (HEMOGRAM) [HEME] Q6H 10/25/16 05:00 CBC W/O DIFF (HEMOGRAM) [HEME] DAILYLAB CMP, RFLX TO IONIZED CA IF [CHEM] DAILYLAB MAGNESIUM [CHEM] DAILYLAB PHOSPHORUS [CHEM] DAILYLAB PT WITH INR [COAG] DAILYLAB 10/26/16 05:00 CBC W/O DIFF (HEMOGRAM) [HEME] DAILYLAB CMP, RFLX TO IONIZED CA IF [CHEM] DAILYLAB MAGNESIUM [CHEM] DAILYLAB PHOSPHORUS [CHEM] DAILYLAB PT WITH INR [COAG] DAILYLAB 10/27/16 05:00 CBC W/O DIFF (HEMOGRAM) [HEME] DAILYLAB CMP, RFLX TO IONIZED CA IF [CHEM] DAILYLAB MAGNESIUM [CHEM] DAILYLAB PHOSPHORUS [CHEM] DAILYLAB PT WITH INR [COAG] DAILYLAB 10/28/16 05:00 CBC W/O DIFF (HEMOGRAM) [HEME] DAILYLAB CMP, RFLX TO IONIZED CA IF [CHEM] DAILYLAB MAGNESIUM [CHEM] DAILYLAB PHOSPHORUS [CHEM] DAILYLAB 10/29/16 05:00 CBC W/O DIFF (HEMOGRAM) [HEME] DAILYLAB Consult/Specialty: PT Plan Discussed with:: Patient, Spouse Time Spent: 31-60 minutes Subjective - Subjective Patient Reports: Other (Patient feels short of air with exertion and getting dizzy with standing. She appears pale. Otherwise cough improving. No fevers overnight.) Nursing Reports: No Complaints Objective Vital Signs: Vital Signs - 24 hr 10/22/16 10/23/16 10/23/16 21:05 00:37 04:30 Temperature 36.6 C Heart Rate 108 H Heart Rate [ 96 Brachial] Respiratory 20 18 Rate Blood Pressure 105/67 121/72 [Right Brachial artery] Blood Pressure [Right Radial artery] O2 Saturation 96 10/23/16 10/23/16 10/23/16 08:34 10:51 17:00 Temperature 36.4 C L 36.6 C Heart Rate 110 H Heart Rate [ 95 100 Brachial] Respiratory 16 18 Rate Blood Pressure [Right Brachial artery] Blood Pressure 113/69 91/62 [Right Radial artery] O2 Saturation 95 95 Oxygen O2 Source [With Activity] Room air O2 Source [Without Activity] Room air O2 Source Room air I&O (Last 24 Hrs): Intake and Output Totals x24h 10/21/16 10/22/16 10/23/16 23:59 23:59 23:59 Intake Total 2325 915 780 Output Total 400 300 400 Balance 1925 615 380 General: Alert, Oriented x3, Cooperative, No acute distress HEENT: Atraumatic, PERRLA, EOMI, Other (Dry, pallor) Neck: Supple, No JVD, No thyromegaly, +2 carotid pulse wo bruit, No LAD Lymphatic: no adenopathy Neuro: Alert, Non Focal, CN 2-12 Grossly Intact, Oriented Times 3 Cardiovascular: Regular rate, Normal S1, Normal S2, Other (tachycardic) Respiratory: Chest non-tender, No respiratory distress, Wheezes (scattered), Rhonchi (bilateral) Abdomen: Normal bowel sounds, Soft, No tenderness, No hepatospenomegaly Extremities: No clubbing, No cyanosis, No edema, Normal pulses Skin: No rashes, No breakdown, No significant lesion - Results Results: Laboratory Results WBC 18.4 x10^3/uL (4.8-10.8) H 10/23/16 16:44 RBC 2.91 10^6/uL (4.20-5.40) L 10/23/16 16:44 Hgb 8.3 g/dL (12.0-16.0) L 10/23/16 16:44 Hct 26.0 % (37.0-47.0) L 10/23/16 16:44 MCV 89.4 fL (81.0-99.0) 10/23/16 16:44 MCH 28.5 pg (27.0-31.0) 10/23/16 16:44 MCHC 31.9 g/dL (32.0-36.0) L 10/23/16 16:44 RDW 16.9 % (12.0-15.0) H 10/23/16 16:44 Plt Count 319 10^3/uL (130-450) 10/23/16 16:44 MPV 9.7 fL (7.9-10.8) 10/23/16 16:44 Neut # Not Reportable 10/23/16 09:50 Lymph # Not Reportable 10/23/16 09:50 [place] # Not Reportable 10/23/16 09:50 Eos # Not Reportable 10/23/16 09:50 Baso # Not Reportable 10/23/16 09:50 Absolute Nucleated RBC Not Reportable 10/23/16 09:50 Total Counted 100 10/23/16 09:50 Band Neuts % (Manual) 0 % (0-10) 10/23/16 09:50 Myelocytes % 1 % (-0) H 10/17/16 23:43 Neutrophils # (Manual) 13.7 10^3/uL (1.5-6.6) H 10/23/16 09:50 Lymphocytes # (Manual) 4.6 10^3/uL (1.5-3.5) H 10/23/16 09:50 Monocytes # (Manual) 1.4 10^3/uL (0.0-1.0) H 10/23/16 09:50 Eosinophils # (Manual) 0.2 10^3/uL (0-0.7) 10/23/16 09:50 Basophils # (Manual) 0.1 10^3/uL (0-0.1) 10/18/16 06:07 Nucleated RBCs 2 % 10/23/16 09:50 Differential Comment MANUAL DIFFERENTIAL 10/23/16 09:50 Manual Slide Review Indicated 10/22/16 06:13 WBC Morphology 1+ TOXIC GRANULATION (NORMAL) 1+ VACUOLATION (NORMAL) 09:50 WBC Morphology 1+ TOXIC GRANULATION (NORMAL) 1+ VACUOLATION (NORMAL) 09:50 Platelet Estimate NORMAL (130-450,000) (NORMAL) 10/22/16 06:13 Platelet Morphology NORMAL APPEARANCE (NORMAL) 10/22/16 06:13 RBC Morph Micro Appear 2+ HYPOCHROMASIA (NORMAL) 1+ OVALOCYTES (NORMAL) 1+ TARGET CELLS (NORMAL) 1+ BASO STIPPLING (NORMAL) 1+ TEARDROP CELLS (NORMAL) 1 + POLYCHROMASIA (NORMAL) 10/23/16 09:50 RBC Morph Micro Appear 2+ HYPOCHROMASIA (NORMAL) 1+ OVALOCYTES (NORMAL) 1+ TARGET CELLS (NORMAL) 1+ BASO STIPPLING (NORMAL) 1+ TEARDROP CELLS (NORMAL) 1 + POLYCHROMASIA (NORMAL) 10/23/16 09:50 RBC Morph Micro Appear 2+ HYPOCHROMASIA (NORMAL) 1+ OVALOCYTES (NORMAL) 1+ TARGET CELLS (NORMAL) 1+ BASO STIPPLING (NORMAL) 1+ TEARDROP CELLS (NORMAL) 1 + POLYCHROMASIA (NORMAL) 10/23/16 09:50 RBC Morph Micro Appear 2+ HYPOCHROMASIA (NORMAL) 1+ OVALOCYTES (NORMAL) 1+ TARGET CELLS (NORMAL) 1+ BASO STIPPLING (NORMAL) 1+ TEARDROP CELLS (NORMAL) 1 + POLYCHROMASIA (NORMAL) 10/23/16 09:50 RBC Morph Micro Appear 2+ HYPOCHROMASIA (NORMAL) 1+ OVALOCYTES (NORMAL) 1+ TARGET CELLS (NORMAL) 1+ BASO STIPPLING (NORMAL) 1+ TEARDROP CELLS (NORMAL) 1 + POLYCHROMASIA (NORMAL) 10/23/16 09:50 RBC Morph Micro Appear 2+ HYPOCHROMASIA (NORMAL) 1+ OVALOCYTES (NORMAL) 1+ TARGET CELLS (NORMAL) 1+ BASO STIPPLING (NORMAL) 1+ TEARDROP CELLS (NORMAL) 1 + POLYCHROMASIA (NORMAL) 10/23/16 09:50 PT 24.0 secs (9.9-12.6) H 10/22/16 06:13 INR 2.1 (0.8-1.2) H 10/22/16 06:13 APTT 31.8 secs (24.9-33.3) 10/17/16 23:43 Anti-Xa Level 0.1 U/mL (-0.7) 10/23/16 11:23 Sodium 142 mmol/L (135-145) 10/22/16 06:13 Potassium 3.6 mmol/L (3.5-5.0) 10/22/16 06:13 Chloride 103 mmol/L (101-111) 10/22/16 06:13 Carbon Dioxide 30 mmol/L (21-32) 10/22/16 06:13 Anion Gap 9.0 (6-13) 10/22/16 06:13 BUN 43 mg/dL (6-20) H 10/22/16 06:13 Creatinine 1.1 mg/dL (0.4-1.0) H 10/22/16 06:13 Estimated GFR (MDRD) 48 (>89) L 10/22/16 06:13 Glucose 117 mg/dL (70-100) H 10/22/16 06:13 Glycated Hemoglobin 7.2 % (4.6-6.2) H 10/18/16 12:00 Estim Average Glucose 160 (70-100) H 10/18/16 12:00 Calcium 8.6 mg/dL (8.5-10.3) 10/22/16 06:13 Phosphorus 3.2 mg/dL (2.5-4.6) 10/22/16 06:13 Magnesium 1.5 mg/dL (1.7-2.8) L 10/22/16 06:13 Total Bilirubin 0.4 mg/dL (0.2-1.0) 10/17/16 23:43 AST 22 IU/L (10-42) 10/17/16 23:43 ALT 18 IU/L (10-60) 10/17/16 23:43 Alkaline Phosphatase 87 IU/L (42-121) 10/17/16 23:43 B-Natriuretic Peptide 178 pg/mL (5-100) H 10/17/16 23:43 Total Protein 7.2 g/dL (6.7-8.2) 10/17/16 23:43 Albumin 3.1 g/dL (3.2-5.5) L 10/17/16 23:43 Globulin 4.1 g/dL (2.1-4.2) 10/17/16 23:43 Albumin/Globulin Ratio 0.8 (1.0-2.2) L 10/17/16 23:43 Lipase 53 U/L (22-51) H 10/17/16 23:43 Urine Color YELLOW 10/22/16 08:45 Urine Clarity HAZY (CLEAR) 10/22/16 08:45 Urine pH 5.5 PH (5.0-7.5) 10/22/16 08:45 Ur Specific [place] 1.010 (1.002-1.030) 10/22/16 08:45 Urine Protein NEGATIVE mg/dL (NEGATIVE) 10/22/16 08:45 Urine Glucose (UA) NEGATIVE mg/dL (NEGATIVE) 10/22/16 08:45 Urine Ketones NEGATIVE mg/dL (NEGATIVE) 10/22/16 08:45 Urine Occult Blood NEGATIVE (NEGATIVE) 10/22/16 08:45 Urine Nitrite NEGATIVE (NEGATIVE) 10/22/16 08:45 Urine Bilirubin NEGATIVE (NEGATIVE) 10/22/16 08:45 Urine Urobilinogen 0.2 (NORMAL) E.U./dL (NORMAL) 10/22/16 08:45 Ur Leukocyte Esterase NEGATIVE (NEGATIVE) 10/22/16 08:45 Urine RBC 0-5 /HPF (0-5) 10/22/16 08:45 Urine WBC 0-3 /HPF (0-5) 10/22/16 08:45 Ur Squamous Epith Cells MOD Squamous (<= Few) H 10/22/16 08:45 Urine Bacteria Rare /HPF (None Seen) 10/22/16 08:45 Urine Culture Comments NOT INDICATED 10/22/16 08:45
[2016-10-23] MEDS: amLODIPine 5 MG TABLET PO SCH (21:05)
[2016-10-23] MEDS: PRAVASTATIN 40 MG TABLET PO SCH (21:05)
[2016-10-23] MEDS: SODIUM CHLORIDE FLUSH 0.9% 10 ML SYRINGE IVP PRN (21:14)
[2016-10-23] MEDS: BENZOCAINE/MENTHOL LOZENGE MM PRN (21:40)
[2016-10-24] MEDS: oxyCODONE 5 MG TABLET PO PRN ×6 (00:39→21:33)
[2016-10-24] MEDS: IPRATROPIUM/ALBUTEROL 3 ML NEB INH PRN ×4 (00:55→18:50)
[2016-10-24 01:04] LABS: HGB - HEMOGLOBIN 8.2 g/dL (12.0-16.0); MEAN CORPUSCULAR HEMOGLOBIN 28.2 pg (27.0-31.0); MEAN CORPUSCULAR HGB CONC 31.6 g/dL (32.0-36.0); MEAN CORPUSCULAR VOLUME 89.3 fL (81.0-99.0); MEAN PLATELET VOLUME 9.4 fL (7.9-10.8); RED BLOOD COUNT 2.91 10^6/uL (4.20-5.40); RED CELL DISTRIBUTION WIDTH 16.9 % (12.0-15.0); WHITE BLOOD COUNT 20.1 x10^3/uL (4.8-10.8)
[2016-10-24] MEDS: ACETAMINOPHEN 325 MG TABLET PO PRN ×2 (01:42→06:53)
[2016-10-24] MEDS: SODIUM CHLORIDE FLUSH 0.9% 10 ML SYRINGE IVP SCH ×3 (05:14→21:36)
[2016-10-24 07:34] LABS: HCT - HEMATOCRIT 26.1 % (37.0-47.0); HGB - HEMOGLOBIN 8.4 g/dL (12.0-16.0); MEAN CORPUSCULAR HEMOGLOBIN 28.8 pg (27.0-31.0); MEAN CORPUSCULAR HGB CONC 32.3 g/dL (32.0-36.0); MEAN CORPUSCULAR VOLUME 89.3 fL (81.0-99.0); MEAN PLATELET VOLUME 9.7 fL (7.9-10.8); RED BLOOD COUNT 2.92 10^6/uL (4.20-5.40); RED CELL DISTRIBUTION WIDTH 17.3 % (12.0-15.0)
[2016-10-24 07:35] LABS: INR 2.2 (0.8-1.2); PT - PROTHROMBIN TIME 24.5 secs (9.9-12.6)
[2016-10-24] MEDS: POLYETHYLENE GLYCOL 3350 17 GM PACKET PO SCH (07:39)
[2016-10-24 07:45] LABS: BILIRUBIN,TOTAL 0.8 mg/dL (0.2-1.0); BUN - BLOOD UREA NITROGEN 49 mg/dL (6-20); CALCIUM 8.7 mg/dL (8.5-10.3); CARBON DIOXIDE - CO2 27 mmol/L (21-32); CHLORIDE 105 mmol/L (101-111); CREATININE 1.5 mg/dL (0.4-1.0); GFR - MDRD 33 (>89); GLUCOSE 102 mg/dL (70-100); MAGNESIUM 1.7 mg/dL (1.7-2.8); PHOSPHORUS 3.9 mg/dL (2.5-4.6); SODIUM 143 mmol/L (135-145); TOTAL PROTEIN 6.2 g/dL (6.7-8.2)
[2016-10-24] MEDS: ALLOPURINOL 100 MG TABLET PO SCH (08:35)
[2016-10-24] MEDS: METOPROLOL SUCCINATE 50 MG TABLET PO SCH ×2 (08:36→21:34)
[2016-10-24] MEDS: levoFLOXacin 250 MG TABLET PO SCH (08:36)
[2016-10-24] MEDS: PANTOPRAZOLE 40 MG VIAL IVP SCH ×2 (08:36→21:37)
[2016-10-24] MEDS: SACCHAROMYCES BOULARDII 250 MG CAPSULE PO SCH ×2 (08:36→18:42)
[2016-10-24] MEDS: FUROSEMIDE 40 MG TABLET PO SCH (08:36)
[2016-10-24] MEDS: POTASSIUM CHLORIDE 20 MEQ TABLET PO SCH (08:36)
[2016-10-24] MEDS: guaiFENesin 600 MG TABLET PO SCH ×2 (08:37→21:33)
[2016-10-24] MEDS: LISINOPRIL 5 MG TABLET PO SCH (08:37)
[2016-10-24] MEDS: INSULIN ASPART 300 UNIT/3 ML PEN SUBQ SCH ×4 (08:43→21:37)
[2016-10-24] MEDS: INSULIN GLARGINE 300 UNIT/3 ML PEN SUBQ SCH ×2 (10:16→21:45)
[2016-10-24] MEDS: HEPARIN 25,000 UNITS/500 ML 500 ML IV SCH (10:23)
[2016-10-24 13:25] LABS: HCT - HEMATOCRIT 24.8 % (37.0-47.0); HGB - HEMOGLOBIN 8.2 g/dL (12.0-16.0); MEAN CORPUSCULAR HEMOGLOBIN 29.4 pg (27.0-31.0); MEAN PLATELET VOLUME 9.6 fL (7.9-10.8); RED BLOOD COUNT 2.79 10^6/uL (4.20-5.40); RED CELL DISTRIBUTION WIDTH 16.9 % (12.0-15.0); WHITE BLOOD COUNT 20.6 x10^3/uL (4.8-10.8)
[2016-10-24 14:03] LABS: FERRITIN 71.5 ng/mL (11.0-306.8)
--- NOTE | 2016-10-24 14:09 | Ultrasound Report ---
COMPLETE ABDOMINAL ULTRASOUND: 10/23/2016 CLINICAL INDICATION: Right upper quadrant pain, stone. TECHNIQUE: Real-time scanning was performed with product sales representative static images obtained. FINDINGS: The liver measures 14.8 cm. Hepatic echotexture is unremarkable. No intrahepatic biliary dilatation or focal parenchymal lesion is present. The common bile duct measures 5 mm. The gallbla dder demonstrates multiple calculi and sludge. No wall thickening or pericholecystic fluid is seen. The pancreas is obscured by bowel gas. The right kidney measures 11.3 cm, and demonstrates a small cyst. The left kidney measures 11.1 cm, and is unremarkable. No hydronephrosis or perinephric colle ction is seen. The visualized abdominal aorta is normal in caliber. The inferior vena cava is unrem arkable. The spleen was not visualized. IMPRESSION: CHOLELITHIASIS, WITHOUT EVIDENCE OF ACUTE CHOLECYSTITIS OR BILIARY OBSTRUCTION. JOB #: [id number] EXT JOB #:
[2016-10-24] MEDS: MAGNESIUM OXIDE 400 MG TABLET PO SCH ×2 (14:11→18:38)
[2016-10-24] MEDS: CALCIUM CARBONATE 1,250 MG/5 ML UDC PO SCH (14:11)
[2016-10-24 15:29] LABS: IRON 76 ug/dL (28-170); TOTAL IRON BINDING CAPACITY 288 ug/dL (250-450); TRANSFERRIN 206 mg/dL (192-382)
[2016-10-24] MEDS ORDERED: LORazepam 2 MG/ML SYRINGE IVP ONE (16:00)
[2016-10-24 16:28] LABS: HCT - HEMATOCRIT 25.2 % (37.0-47.0); HGB - HEMOGLOBIN 8.2 g/dL (12.0-16.0); MEAN CORPUSCULAR HGB CONC 32.5 g/dL (32.0-36.0); MEAN CORPUSCULAR VOLUME 89.2 fL (81.0-99.0); RED BLOOD COUNT 2.82 10^6/uL (4.20-5.40); RED CELL DISTRIBUTION WIDTH 17.2 % (12.0-15.0); WHITE BLOOD COUNT 19.8 x10^3/uL (4.8-10.8)
--- NOTE | 2016-10-24 18:28 | CT Preliminary Report ---
Exam: CT Abdomen/Pelvis W/O IMPRESSION: 1. Large hematoma originating in the right abdominal rectus muscles with extension to the right later al abdominal wall and subcutaneous soft tissues. Please note that occasionally a hemorrhagic malignan cy such as sarcoma can present similarly. 2. Mild cardiomegaly. Chronic lung disease. 3. Cholelithiasis. 4. Right renal lithiasis. No obstructive uropathy. 5. Colonic diverticulosis. 6. IVC filter. RADIA The above critical findings were discussed with Dr. Hernandez by Dr. Monica Pearce at 18:27 hrs on . SITE ID: [id number]
--- NOTE | 2016-10-24 18:34 | PROVIDER PROGRESS NOTE ---
Assessment/Plan - Problem List (1) Acute blood loss anemia Assessment/Plan: Patient continued to be tachycardic and feelt dizzy when she stood She was also continuing to have SOB with exertion Her Hb is fell to 8.4 from baseline of 11.4 She did not recall having dark or bloody stools Stool guiaic was negative She does not have any changes in mentation Patient is on plavix, asa and coumadin which put her at risk of bleed ASA, plavix and coumadin were stopped and patient placed on heparin drip Patient with bruising in the right flank Abd ultrasound did not show any bleed CT abd shows bleeding in the abdominal muscles but bleeding is contained and none in the abdominal cavity Will stop heparin drip and place back on coumadin for history PE Will continue to hold plavix and aspirin Monitor Hb for 24-48 more hours if less than 7 will transfuse (2) CAP (community acquired pneumonia) Assessment/Plan: patient presented with shortness of breath and found to have a pneumonia on CT chest Initially received IV ceftriaxone and azithromycin for 3 days then switched to cefuroxime and azithromycin PO WBC still elevated today but likely related to GI bleeding Her repeat CXR showed pneumonia On Levaquin PO day 3 Patient hypoxic with exertion will likely need at least 2-3 L of O2 at home Will do walk test prior to discharge (3) COPD exacerbation Assessment/Plan: On duonebs was on prednisone but stopped due to bleeding Not on O2 at rest but still SOB with exertion and requires O2 with exertion Decreased wheezing Improving (4) Chest pain Assessment/Plan: Cardiac workup negative Likely secondary to coughing with history of rib fx On tesslon pearles and mucinex (5) Diabetes Qualifiers: Diabetes mellitus type: type 2 Assessment/Plan: COntinue home dose of lantus and SS insulin Stable (6) History of pulmonary embolism Assessment/Plan: Stop coumadin secondary to bleeding Will place on heparin drip (7) Hypertension Assessment/Plan: BP stable Continue home meds (8) Hyperlipidemia Assessment/Plan: On statin Stable (9) Chronic back pain Assessment/Plan: Continue oxycodone Stable (10) Lung mass Assessment/Plan: 3 cm mass seen on CT worse than prior CT Needs outpatient follow up CT or PET after resolution of infection - Current Meds Current Meds: Current Medications Generic Name Dose Route Start Last Admin Trade Name Freq PRN Reason Stop Dose Admin Acetaminophen 650 mg 10/18/16 02:31 10/24/16 06:53 Tylenol PO 650 mg Q4HR PRN Administration Pain 1 to 4 Albuterol/Ipratropium 3 ml 10/18/16 02:31 10/24/16 13:00 Duoneb INH 3 ml RTQID PRN Administration Wheezing Allopurinol 150 mg 10/18/16 09:00 10/24/16 08:35 Zyloprim PO 150 mg DAILY [facility]ENCE Administration Amlodipine Besylate 2.5 mg 10/21/16 21:00 10/23/16 21:05 Norvasc PO Not Given QPM [facility] Benzonatate 100 mg 10/18/16 20:12 10/22/16 17:11 Tessalon PO 100 mg TID PRN Administration Cough Calcium Carbonate/Glycine 600 mg 10/22/16 12:00 10/24/16 14:11 Calcium Carbonate PO 600 mg 1200 LAWRENCE Administration Docusate Sodium 100 mg 10/18/16 11:21 10/22/16 08:57 Colace 100mg Capsule PO 100 mg BID PRN Administration Constipation Guaifenesin 600 mg 10/18/16 03:00 10/24/16 08:37 Mucinex PO 600 mg BID [facility]ENCE Administration Heparin Sodium/Dextrose 500 mls @ 24.492 mls/hr 10/23/16 11:00 10/24/16 10:23 IV 21.226 mls/hr .[id number] LAWRENCE Administration Protocol 15 UNIT/KG/HR Insulin Aspart 2 - 10 unit 10/18/16 12:00 10/24/16 15:53 Novolog SUBQ Not Given 0800,1200,1700,2100 [facility] Protocol Insulin Glargine 15 unit 10/18/16 09:00 10/24/16 10:16 Lantus Solostar SUBQ 15 unit BID LA[facility]ENCE Administration Levofloxacin 750 mg 10/22/16 09:00 10/24/16 08:36 Levaquin PO 750 mg DAILY [facility] Administration Lisinopril 5 mg 10/18/16 09:00 10/24/16 08:37 Zestril PO 5 mg DAILY LA[facility] Administration Magnesium Oxide 400 mg 10/22/16 08:32 10/24/16 14:11 Mag Ox PO 400 mg 1100,1700 LA[facility]ENCE Administration Metoprolol Succinate 50 mg 10/22/16 09:00 10/24/16 08:36 Toprol Xl PO 50 mg BID LA[facility]ENCE Administration Ondansetron HCl 4 mg 10/22/16 13:52 10/22/16 19:56 Zofran Odt TL 4 mg Q4HR PRN Administration Nausea / Vomiting Oxycodone HCl 5 mg 10/18/16 02:31 10/24/16 05:13 Roxicodone PO 5 mg Q4HR PRN Administration Pain 5 to 7 Oxycodone HCl 10 mg 10/18/16 02:31 10/24/16 13:51 Roxicodone PO 10 mg Q4HR PRN Administration Pain 8 to 10 Pantoprazole Sodium 40 mg 10/23/16 11:00 10/24/16 08:36 Protonix IVP 40 mg BID LA[facility]ENCE Administration Polyethylene Glycol 17 gm 10/18/16 09:00 10/24/16 07:39 Miralax PO Not Given DAILY [facility] Potassium Chloride 40 meq 10/18/16 08:00 10/24/16 08:36 K-Dur PO 40 meq DAILYWM [facility] Administration Pravastatin Sodium 40 mg 10/18/16 21:00 10/23/16 21:05 Pravachol PO 40 mg QPM [facility] Administration Saccharomyces Boulardii 250 mg 10/18/16 08:00 10/24/16 08:36 Florastor PO 250 mg BIDWM [facility] Administration Sodium Chloride 10 ml 10/18/16 02:31 10/23/16 21:14 Normal Saline Flush 0.9% IVP 10 ml PRN PRN Administration NEEDED PER PROVIDER ORDERS Sodium Chloride 10 ml 10/18/16 06:00 10/24/16 15:54 Normal Saline Flush 0.9% IVP 10 ml Q8HR [facility]ENCE Administration Throat Lozenges 1 lozenge 10/21/16 00:03 10/23/16 21:40 Cepacol MM 1 lozenge Q2HR PRN Administration Throat pain - Lab Result Lab results reviewed: Yes Fish Bone Diagrams: 10/24/16 15:20 10/24/16 07:23 - EKG Results EKG Interpreted Independently: Yes - Diagnostic Imaging Results Diagnostic Imaging Results: positive: Final report reviewed - Additional Planning Condition/Complexity: Guarded My Orders: My Active Orders 10/24/16 16:00 Abdomen/Pelvis W/O [CT] Stat 10/24/16 21:00 Anti Xa [FACTOR XA] [COAG] Timed 10/24/16 22:00 CBC W/O DIFF (HEMOGRAM) [HEME] Q6H 10/24/16 Lunch Carb-controlled Diet [DIET] 10/25/16 05:00 CBC W/O DIFF (HEMOGRAM) [HEME] DAILYLAB CMP, RFLX TO IONIZED CA IF [CHEM] DAILYLAB MAGNESIUM [CHEM] DAILYLAB PHOSPHORUS [CHEM] DAILYLAB PT WITH INR [COAG] DAILYLAB 10/26/16 05:00 CBC W/O DIFF (HEMOGRAM) [HEME] DAILYLAB CMP, RFLX TO IONIZED CA IF [CHEM] DAILYLAB MAGNESIUM [CHEM] DAILYLAB PHOSPHORUS [CHEM] DAILYLAB PT WITH INR [COAG] DAILYLAB 10/27/16 05:00 CBC W/O DIFF (HEMOGRAM) [HEME] DAILYLAB CMP, RFLX TO IONIZED CA IF [CHEM] DAILYLAB MAGNESIUM [CHEM] DAILYLAB PHOSPHORUS [CHEM] DAILYLAB PT WITH INR [COAG] DAILYLAB 10/28/16 05:00 CBC W/O DIFF (HEMOGRAM) [HEME] DAILYLAB CMP, RFLX TO IONIZED CA IF [CHEM] DAILYLAB MAGNESIUM [CHEM] DAILYLAB PHOSPHORUS [CHEM] DAILYLAB 10/29/16 05:00 CBC W/O DIFF (HEMOGRAM) [HEME] DAILYLAB Plan Discussed with:: Patient, Spouse Time Spent: Greater than 60 minutes Subjective - Subjective Patient Reports: Abdominal Pain (Right flank pain), Fever (none), Shortness of Breath (Improving) Nursing Reports: No Complaints Objective Vital Signs: Vital Signs - 24 hr 10/23/16 10/23/16 10/24/16 18:50 23:50 00:55 Temperature 36.6 C Heart Rate 96 102 H Heart Rate [ 94 Radial] Respiratory 18 16 18 Rate Blood Pressure [Right Brachial artery] Blood Pressure 106/64 [Right Radial artery] O2 Saturation 96 10/24/16 10/24/16 10/24/16 01:47 08:45 10:45 Temperature 36.6 C Heart Rate 105 H Heart Rate [ 100 Radial] Respiratory 20 20 Rate Blood Pressure 130/67 [Right Brachial artery] Blood Pressure 127/68 [Right Radial artery] O2 Saturation 96 10/24/16 10/24/16 12:07 13:00 Temperature Heart Rate 96 Heart Rate [ Radial] Respiratory 18 Rate Blood Pressure [Right Brachial artery] Blood Pressure 104/66 [Right Radial artery] O2 Saturation Oxygen O2 Source [With Activity] Room air O2 Source [Without Activity] Room air O2 Source Room air I&O (Last 24 Hrs): Intake and Output Totals x24h 10/22/16 10/23/16 10/24/16 23:59 23:59 23:59 Intake Total 915 1429 748 Output Total 300 500 200 Balance 615 929 548 General: Alert, Oriented x3, Cooperative, No acute distress HEENT: Atraumatic, PERRLA, EOMI, Mucous membr. moist/pink Neck: Supple, No JVD, No thyromegaly, +2 carotid pulse wo bruit, No LAD Lymphatic: no adenopathy Neuro: Alert, Non Focal, CN 2-12 Grossly Intact, Oriented Times 3 Cardiovascular: Regular rate, Normal S1, Normal S2, No murmurs Respiratory: Chest non-tender, Wheezes (Mild), Rhonchi (Mild) Abdomen: Normal bowel sounds, Soft, No hepatospenomegaly, Other (Right flank bruising) Extremities: No clubbing, No cyanosis, Normal pulses, No tenderness/swelling, Other (Bilateral LE edema) Comments/Notes: Right flank bruising - Results Results: Laboratory Results WBC 19.8 x10^3/uL (4.8-10.8) H 10/24/16 15:20 RBC 2.82 10^6/uL (4.20-5.40) L 10/24/16 15:20 Hgb 8.2 g/dL (12.0-16.0) L 10/24/16 15:20 Hct 25.2 % (37.0-47.0) L 10/24/16 15:20 MCV 89.2 fL (81.0-99.0) 10/24/16 15:20 MCH 29.0 pg (27.0-31.0) 10/24/16 15:20 MCHC 32.5 g/dL (32.0-36.0) 10/24/16 15:20 RDW 17.2 % (12.0-15.0) H 10/24/16 15:20 Plt Count 354 10^3/uL (130-450) 10/24/16 15:20 MPV 10.0 fL (7.9-10.8) 10/24/16 15:20 Neut # Not Reportable 10/23/16 09:50 Lymph # Not Reportable 10/23/16 09:50 Plumas # Not Reportable 10/23/16 09:50 Eos # Not Reportable 10/23/16 09:50 Baso # Not Reportable 10/23/16 09:50 Absolute Nucleated RBC Not Reportable 10/23/16 09:50 Total Counted 100 10/23/16 09:50 Band Neuts % (Manual) 0 % (0-10) 10/23/16 09:50 Myelocytes % 1 % (-0) H 10/17/16 23:43 Neutrophils # (Manual) 13.7 10^3/uL (1.5-6.6) H 10/23/16 09:50 Lymphocytes # (Manual) 4.6 10^3/uL (1.5-3.5) H 10/23/16 09:50 Monocytes # (Manual) 1.4 10^3/uL (0.0-1.0) H 10/23/16 09:50 Eosinophils # (Manual) 0.2 10^3/uL (0-0.7) 10/23/16 09:50 Basophils # (Manual) 0.1 10^3/uL (0-0.1) 10/18/16 06:07 Nucleated RBCs 2 % 10/23/16 09:50 Differential Comment MANUAL DIFFERENTIAL 10/23/16 09:50 Manual Slide Review Indicated 10/22/16 06:13 WBC Morphology 1+ TOXIC GRANULATION (NORMAL) 1+ VACUOLATION (NORMAL) 09:50 WBC Morphology 1+ TOXIC GRANULATION (NORMAL) 1+ VACUOLATION (NORMAL) 09:50 Platelet Estimate NORMAL (130-450,000) (NORMAL) 10/22/16 06:13 Platelet Morphology NORMAL APPEARANCE (NORMAL) 10/22/16 06:13 RBC Morph Micro Appear 2+ HYPOCHROMASIA (NORMAL) 1+ OVALOCYTES (NORMAL) 1+ TARGET CELLS (NORMAL) 1+ BASO STIPPLING (NORMAL) 1+ TEARDROP CELLS (NORMAL) 1 + POLYCHROMASIA (NORMAL) 10/23/16 09:50 RBC Morph Micro Appear 2+ HYPOCHROMASIA (NORMAL) 1+ OVALOCYTES (NORMAL) 1+ TARGET CELLS (NORMAL) 1+ BASO STIPPLING (NORMAL) 1+ TEARDROP CELLS (NORMAL) 1 + POLYCHROMASIA (NORMAL) 10/23/16 09:50 RBC Morph Micro Appear 2+ HYPOCHROMASIA (NORMAL) 1+ OVALOCYTES (NORMAL) 1+ TARGET CELLS (NORMAL) 1+ BASO STIPPLING (NORMAL) 1+ TEARDROP CELLS (NORMAL) 1 + POLYCHROMASIA (NORMAL) 10/23/16 09:50 RBC Morph Micro Appear 2+ HYPOCHROMASIA (NORMAL) 1+ OVALOCYTES (NORMAL) 1+ TARGET CELLS (NORMAL) 1+ BASO STIPPLING (NORMAL) 1+ TEARDROP CELLS (NORMAL) 1 + POLYCHROMASIA (NORMAL) 10/23/16 09:50 RBC Morph Micro Appear 2+ HYPOCHROMASIA (NORMAL) 1+ OVALOCYTES (NORMAL) 1+ TARGET CELLS (NORMAL) 1+ BASO STIPPLING (NORMAL) 1+ TEARDROP CELLS (NORMAL) 1 + POLYCHROMASIA (NORMAL) 10/23/16 09:50 RBC Morph Micro Appear 2+ HYPOCHROMASIA (NORMAL) 1+ OVALOCYTES (NORMAL) 1+ TARGET CELLS (NORMAL) 1+ BASO STIPPLING (NORMAL) 1+ TEARDROP CELLS (NORMAL) 1 + POLYCHROMASIA (NORMAL) 10/23/16 09:50 PT 24.5 secs (9.9-12.6) H 10/24/16 07:18 INR 2.2 (0.8-1.2) H 10/24/16 07:18 APTT 31.8 secs (24.9-33.3) 10/17/16 23:43 Anti-Xa Level 0.5 U/mL (-0.7) 10/24/16 15:20 Sodium 143 mmol/L (135-145) 10/24/16 07:23 Potassium 4.0 mmol/L (3.5-5.0) 10/24/16 07:23 Chloride 105 mmol/L (101-111) 10/24/16 07:23 Carbon Dioxide 27 mmol/L (21-32) 10/24/16 07:23 Anion Gap 11.0 (6-13) 10/24/16 07:23 BUN 49 mg/dL (6-20) H 10/24/16 07:23 Creatinine 1.5 mg/dL (0.4-1.0) H 10/24/16 07:23 Estimated GFR (MDRD) 33 (>89) L 10/24/16 07:23 Glucose 102 mg/dL (70-100) H 10/24/16 07:23 Glycated Hemoglobin 7.2 % (4.6-6.2) H 10/18/16 12:00 Estim Average Glucose 160 (70-100) H 10/18/16 12:00 Calcium 8.7 mg/dL (8.5-10.3) 10/24/16 07:23 Ionized Calcium NO 10/24/16 07:23 Phosphorus 3.9 mg/dL (2.5-4.6) 10/24/16 07:23 Magnesium 1.7 mg/dL (1.7-2.8) 10/24/16 07:23 Iron 76 ug/dL (28-170) 10/24/16 13:14 TIBC 288 ug/dL (250-450) 10/24/16 13:14 % Saturation 26 % (20-50) 10/24/16 13:14 Transferrin 206 mg/dL (192-382) 10/24/16 13:14 Ferritin 71.5 ng/mL (11.0-306.8) 10/24/16 13:14 Total Bilirubin 0.8 mg/dL (0.2-1.0) 10/24/16 07:23 AST 22 IU/L (10-42) 10/24/16 07:23 ALT 22 IU/L (10-60) 10/24/16 07:23 Alkaline Phosphatase 59 IU/L (42-121) 10/24/16 07:23 B-Natriuretic Peptide 178 pg/mL (5-100) H 10/17/16 23:43 Total Protein 6.2 g/dL (6.7-8.2) L 10/24/16 07:23 Albumin 3.1 g/dL (3.2-5.5) L 10/24/16 07:23 Globulin 3.1 g/dL (2.1-4.2) 10/24/16 07:23 Albumin/Globulin Ratio 1.0 (1.0-2.2) 10/24/16 07:23 Lipase 53 U/L (22-51) H 10/17/16 23:43 Vitamin B12 573 pg/mL (180-914) 10/24/16 13:14 Folate 40.00 ng/mL (5.90 - >24.8) 10/24/16 13:14 Urine Color YELLOW 10/22/16 08:45 Urine Clarity HAZY (CLEAR) 10/22/16 08:45 Urine pH 5.5 PH (5.0-7.5) 10/22/16 08:45 Ur Specific Thermal 1.010 (1.002-1.030) 10/22/16 08:45 Urine Protein NEGATIVE mg/dL (NEGATIVE) 10/22/16 08:45 Urine Glucose (UA) NEGATIVE mg/dL (NEGATIVE) 10/22/16 08:45 Urine Ketones NEGATIVE mg/dL (NEGATIVE) 10/22/16 08:45 Urine Occult Blood NEGATIVE (NEGATIVE) 10/22/16 08:45 Urine Nitrite NEGATIVE (NEGATIVE) 10/22/16 08:45 Urine Bilirubin NEGATIVE (NEGATIVE) 10/22/16 08:45 Urine Urobilinogen 0.2 (NORMAL) E.U./dL (NORMAL) 10/22/16 08:45 Ur Leukocyte Esterase NEGATIVE (NEGATIVE) 10/22/16 08:45 Urine RBC 0-5 /HPF (0-5) 10/22/16 08:45 Urine WBC 0-3 /HPF (0-5) 10/22/16 08:45 Ur Squamous Epith Cells MOD Squamous (<= Few) H 10/22/16 08:45 Urine Bacteria Rare /HPF (None Seen) 10/22/16 08:45 Urine Culture Comments NOT INDICATED 10/22/16 08:45
--- NOTE | 2016-10-24 19:22 | CT Report ---
EXAM: CT ABDOMEN AND PELVIS (CT KUB) EXAM DATE: 10/24/2016 05:12 PM. CLINICAL HISTORY: Renal failure. Breast cancer. Lung mass. Patient is on Plavix, aspirin, and Coumadi n. Recent excessive coughing due to pneumonia. Abdominal pain. COMPARISONS: 10/24/2014. TECHNIQUE: Routine axial helical CT imaging was performed through the abdomen and pelvis without IV c ontrast. Reconstructions: Coronal and sagittal. In accordance with CT protocol optimization, one or more of the following dose reduction techniques w ere utilized for this exam: automated exposure control, adjustment of mA and/or KV based on patient s ize, or use of iterative reconstructive technique. FINDINGS: Lung Bases: Chronic lung disease. Sternotomy. Mild cardiomegaly. Grossly stable postoperative and post radiation changes left breast. 3 cm spiculat ed deep central lesion with adjacent clips, retraction and extensive skin thickening left breast. Right Kidney/Ureter: 3 mm stone superior right renal calyx. No hydronephrosis nor mass lesions. Right ureter is small without calcifications. Left Kidney/Ureter: No stones, hydronephrosis, or hydroureter. No perinephric fat stranding. Other Solid Organs: Noncontrast images of the solid organs are grossly unremarkable. Gallbladder/Bile Ducts: Tiny stones. Normal caliber gallbladder. No biliary duct dilatation. Peritoneal Cavity: Marked amount of mildly inhomogeneous high density material throughout the right a bdominal rectus muscles, extending laterally with some involvement of the right oblique musculature a s well. Moderate amount of edema in the overlying subcutaneous fat right lateral mid and inferior abd omen. Overall dimensions of the intramuscular portion of this lead 23 cm superior inferior, 10-12 cm transv ersely, 3 cm maximum thickness. No edema in the subjacent omentum. This does cause mild displacement of the subjacent bowel. Diverticuli off the colon. Appendix not visualized, but no inflammatory changes adjacent to the cecum . No free fluid, free air or shelly adenopathy. Bowel is grossly unremarkable. Pelvic Organs: No bladder stones or wall thickening. 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. Noncontrast images of the visualiz ed pelvic organs are unremarkable. Vasculature: IVC filter. Other: Marked degenerative changes throughout the scoliotic spine. IMPRESSION: 1. Large hematoma originating in the right abdominal rectus muscles with extension to the right later al abdominal wall and subcutaneous soft tissues. Please note that occasionally a hemorrhagic malignan cy, such as sarcoma, can present similarly. 2. Mild cardiomegaly. Chronic lung disease. 3. Cholelithiasis. 4. Right renal lithiasis. No obstructive uropathy. 5. Colonic diverticulosis. 6. IVC filter. RADIA The above critical findings were discussed with Dr. Hernandez by Dr. Monica Pearce at 18:27 hrs on . Referring Provider Line: [phone] SITE ID: [id number]
[2016-10-24] MEDS: BENZONATATE 100 MG CAPSULE PO PRN (20:06)
[2016-10-24] MEDS: BENZOCAINE/MENTHOL LOZENGE MM PRN (20:08)
[2016-10-24] MEDS: amLODIPine 5 MG TABLET PO SCH (21:34)
[2016-10-24] MEDS: PRAVASTATIN 40 MG TABLET PO SCH (21:34)
[2016-10-24] MEDS: MORPHINE 2 MG/ML SYRINGE IVP PRN ×2 (21:40→23:53)
[2016-10-24 22:20] LABS: HCT - HEMATOCRIT 25.9 % (37.0-47.0); HGB - HEMOGLOBIN 8.3 g/dL (12.0-16.0); MEAN CORPUSCULAR HEMOGLOBIN 28.8 pg (27.0-31.0); MEAN CORPUSCULAR VOLUME 89.9 fL (81.0-99.0); MEAN PLATELET VOLUME 9.2 fL (7.9-10.8); RED BLOOD COUNT 2.88 10^6/uL (4.20-5.40); WHITE BLOOD COUNT 20.2 x10^3/uL (4.8-10.8)
[2016-10-24] MEDS: SODIUM CHLORIDE FLUSH 0.9% 10 ML SYRINGE IVP PRN (23:53)
[2016-10-25] MEDS: ZOLPIDEM 5 MG TABLET PO PRN (01:34)
[2016-10-25] MEDS: IPRATROPIUM/ALBUTEROL 3 ML NEB INH PRN (06:10)
[2016-10-25] MEDS: SODIUM CHLORIDE FLUSH 0.9% 10 ML SYRINGE IVP SCH ×3 (06:10→21:30)
[2016-10-25 06:18] LABS: HCT - HEMATOCRIT 25.5 % (37.0-47.0); HGB - HEMOGLOBIN 8.3 g/dL (12.0-16.0); MEAN CORPUSCULAR HEMOGLOBIN 29.5 pg (27.0-31.0); MEAN CORPUSCULAR HGB CONC 32.7 g/dL (32.0-36.0); MEAN CORPUSCULAR VOLUME 90.3 fL (81.0-99.0); MEAN PLATELET VOLUME 9.8 fL (7.9-10.8); RED BLOOD COUNT 2.82 10^6/uL (4.20-5.40); RED CELL DISTRIBUTION WIDTH 16.9 % (12.0-15.0)
[2016-10-25 06:23] LABS: INR 1.8 (0.8-1.2); PT - PROTHROMBIN TIME 20.9 secs (9.9-12.6)
[2016-10-25 06:26] LABS: BILIRUBIN,TOTAL 1.1 mg/dL (0.2-1.0); BUN - BLOOD UREA NITROGEN 44 mg/dL (6-20); CALCIUM 8.7 mg/dL (8.5-10.3); CARBON DIOXIDE - CO2 29 mmol/L (21-32); CHLORIDE 104 mmol/L (101-111); CREATININE 1.7 mg/dL (0.4-1.0); GFR - MDRD 29 (>89); GLUCOSE 98 mg/dL (70-100); MAGNESIUM 1.5 mg/dL (1.7-2.8); POTASSIUM 4.4 mmol/L (3.5-5.0); SODIUM 141 mmol/L (135-145); TOTAL PROTEIN 5.9 g/dL (6.7-8.2)
[2016-10-25] MEDS ORDERED: SODIUM CHLORIDE 0.9% 1,000 ML IV SCH (08:00)
[2016-10-25] MEDS: INSULIN GLARGINE 300 UNIT/3 ML PEN SUBQ SCH ×2 (08:00→21:30)
[2016-10-25] MEDS ORDERED: MAGNESIUM OXIDE 400 MG TABLET PO SCH (08:00)
[2016-10-25] MEDS: POTASSIUM CHLORIDE 20 MEQ TABLET PO SCH (09:12)
[2016-10-25] MEDS: INSULIN ASPART 300 UNIT/3 ML PEN SUBQ SCH ×4 (09:12→21:30)
[2016-10-25] MEDS: guaiFENesin 600 MG TABLET PO SCH ×2 (09:13→21:29)
[2016-10-25] MEDS: SACCHAROMYCES BOULARDII 250 MG CAPSULE PO SCH ×2 (09:13→17:45)
[2016-10-25] MEDS: ALLOPURINOL 100 MG TABLET PO SCH (09:14)
[2016-10-25] MEDS: SODIUM CHLORIDE FLUSH 0.9% 10 ML SYRINGE IVP PRN ×2 (09:15→18:16)
[2016-10-25] MEDS: levoFLOXacin 250 MG TABLET PO SCH (09:15)
[2016-10-25] MEDS: METOPROLOL SUCCINATE 50 MG TABLET PO SCH ×3 (09:16→21:29)
[2016-10-25] MEDS: PANTOPRAZOLE 40 MG VIAL IVP SCH ×2 (09:16→21:29)
[2016-10-25] MEDS: POLYETHYLENE GLYCOL 3350 17 GM PACKET PO SCH (09:47)
[2016-10-25] MEDS ORDERED: INSULIN GLARGINE 300 UNIT/3 ML PEN SUBQ SCH (10:00)
[2016-10-25] MEDS: ACETAMINOPHEN 325 MG TABLET PO PRN (11:10)
[2016-10-25] MEDS: MAGNESIUM OXIDE 400 MG TABLET PO SCH ×2 (12:05→17:45)
[2016-10-25] MEDS: CALCIUM CARBONATE 1,250 MG/5 ML UDC PO SCH (12:05)
[2016-10-25] MEDS ORDERED: WARFARIN 5 MG TABLET PO SCH (14:00)
--- NOTE | 2016-10-25 18:04 | PROVIDER PROGRESS NOTE ---
Assessment/Plan - Problem List (1) Acute blood loss anemia Assessment/Plan: Patient found to have drop in her hb from 11.4 to 8.3 Was on plavix, asa and coumadin all stopped initially Stool guiaic was negative Patient had right flank bruising CT abd revealed large hematoma originating in the right abdominal rectus muscle with extension to the right lateral abdominal wall and subQ tissues Hb stable over last 24 hours Given patients cardiac history and symptomatic anemia we will transfuse 2 units PRBCs today for Hb of 8.3 Continue to monitor h&h and for further bleeding for 1-2 more days Restart coumadin but hold ASA and plavix till she is seen as outpatient by Dr Coyle WBC continues to climb this could be reactive to bleeding and large hematoma currently patient is hemodynamically stable but does have worsening renal function and increasing WBC so needs very close monitoring if she becomes unstable and hemodynamically compromised at all she will need to have hematoma evacuated and would need transfer at that point Will continue to monitor very closely (2) Acute Kidney Injury Assessment/Plan: Likely secondary to acute blood loss Will give 2 units of PRBCs and 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 from baseline of 1.1 Stop lisinopril (3) CAP (community acquired pneumonia) Assessment/Plan: patient presented with shortness of breath and found to have a pneumonia on CT chest Initially received IV ceftriaxone and azithromycin for 3 days then switched to cefuroxime and azithromycin PO WBC still elevated today but likely related to GI bleeding Her repeat CXR showed pneumonia On Levaquin PO day 4 Patient hypoxic with exertion will likely need at least 2-3 L of O2 at home Will do walk test prior to discharge (4) COPD exacerbation Assessment/Plan: On duonebs was on prednisone but stopped due to bleeding Not on O2 at rest but still SOB with exertion and requires O2 with exertion Improving (5) Chest pain Assessment/Plan: Cardiac workup negative Likely secondary to coughing with history of rib fx On tesslon pearles and mucinex (6) Diabetes Qualifiers: Diabetes mellitus type: type 2 Assessment/Plan: COntinue home dose of lantus and SS insulin Stable (7) History of pulmonary embolism Assessment/Plan: Restart coumadin as patients Hb has stabilized and asa and plavix have been stopped (8) Hypertension Assessment/Plan: BP stable Continue home meds (9) Hyperlipidemia Assessment/Plan: On statin Stable (10) Chronic back pain Assessment/Plan: Continue oxycodone Stable (11) Lung mass Assessment/Plan: 3 cm mass seen on CT worse than prior CT Needs outpatient follow up CT or PET after resolution of infection - Current Meds Current Meds: Current Medications Generic Name Dose Route Start Last Admin Trade Name Freq PRN Reason Stop Dose Admin Acetaminophen 650 mg 10/18/16 02:31 10/25/16 11:10 Tylenol PO 650 mg Q4HR PRN Administration Pain 1 to 4 Albuterol/Ipratropium 3 ml 10/18/16 02:31 10/25/16 06:10 Duoneb INH 3 ml RTQID PRN Administration Wheezing Allopurinol 150 mg 10/18/16 09:00 10/25/16 09:14 Zyloprim PO 150 mg DAILY [facility] Administration Amlodipine Besylate 2.5 mg 10/21/16 21:00 10/24/16 21:34 Norvasc PO 2.5 mg QPM [facility] Administration Benzonatate 100 mg 10/18/16 20:12 10/24/16 20:06 Tessalon PO 100 mg TID PRN Administration Cough Calcium Carbonate/Glycine 600 mg 10/22/16 12:00 10/25/16 12:05 Calcium Carbonate PO 600 mg 1200 [facility]ENCE Administration Docusate Sodium 100 mg 10/18/16 11:21 10/22/16 08:57 Colace 100mg Capsule PO 100 mg BID PRN Administration Constipation Guaifenesin 600 mg 10/18/16 03:00 10/25/16 09:13 Mucinex PO 600 mg BID [facility] Administration Insulin Aspart 2 - 10 unit 10/18/16 12:00 10/25/16 12:05 Novolog SUBQ Not Given 0800,1200,1700,2100 [facility] Protocol Insulin Glargine 10 unit 10/25/16 10:30 10/25/16 08:00 Lantus Solostar SUBQ 10 unit BID [place] Administration Levofloxacin 750 mg 10/22/16 09:00 10/25/16 09:15 Levaquin PO 750 mg DAILY [facility] Administration Magnesium Oxide 400 mg 10/25/16 12:00 10/25/16 12:05 Mag Ox PO 400 mg TIDWM [facility] Administration Metoprolol Succinate 50 mg 10/22/16 09:00 10/25/16 10:28 Toprol Xl PO 50 mg BID [facility] Administration Morphine Sulfate 2 mg 10/18/16 02:31 10/24/16 23:53 Morphine IVP 2 mg Q2HR PRN Administration Pain 8 to 10 Ondansetron HCl 4 mg 10/22/16 13:52 10/22/16 19:56 Zofran Odt TL 4 mg Q4HR PRN Administration Nausea / Vomiting Oxycodone HCl 5 mg 10/18/16 02:31 10/24/16 21:33 Roxicodone PO 5 mg Q4HR PRN Administration Pain 5 to 7 Oxycodone HCl 10 mg 10/18/16 02:31 10/24/16 13:51 Roxicodone PO 10 mg Q4HR PRN Administration Pain 8 to 10 Pantoprazole Sodium 40 mg 10/23/16 11:00 10/25/16 09:16 Protonix IVP 40 mg BID [place] Administration Polyethylene Glycol 17 gm 10/18/16 09:00 10/25/16 09:47 Miralax PO Not Given DAILY [facility] Potassium Chloride 40 meq 10/18/16 08:00 10/25/16 09:12 K-Dur PO 40 meq DAILYWM [facility] Administration Pravastatin Sodium 40 mg 10/18/16 21:00 10/24/16 21:34 Pravachol PO 40 mg QPM [facility] Administration Saccharomyces Boulardii 250 mg 10/18/16 08:00 10/25/16 09:13 Florastor PO 250 mg BIDWM [place] Administration Sodium Chloride 10 ml 10/18/16 02:31 10/25/16 09:15 Normal Saline Flush 0.9% IVP 10 ml PRN PRN Administration NEEDED PER PROVIDER ORDERS Sodium Chloride 10 ml 10/18/16 06:00 10/25/16 14:13 Normal Saline Flush 0.9% IVP 10 ml Q8HR [facility] Administration Throat Lozenges 1 lozenge 10/21/16 00:03 10/24/16 20:08 Cepacol MM 1 lozenge Q2HR PRN Administration Throat pain Warfarin Sodium 5 mg 10/25/16 14:00 10/25/16 14:13 Coumadin PO 5 mg QDWARFARIN [place] Administration Zolpidem Tartrate 5 mg 10/18/16 02:31 10/25/16 01:34 Ambien PO 5 mg QPM PRN Administration Insomnia - Lab Result Lab results reviewed: Yes Fish Bone Diagrams: 10/25/16 05:38 10/25/16 05:38 - EKG Results EKG Interpreted Independently: Yes - Diagnostic Imaging Results Diagnostic Imaging Results: positive: Final report reviewed - Additional Planning Condition/Complexity: Guarded My Orders: My Active Orders 10/25/16 10:30 Insulin Glargine [Lantus Solostar] 10 unit SUBQ BID 10/25/16 10:40 Transfuse RBCs Leukoreduced [RC] ONCE 10/25/16 11:06 RBC, LEUKOREDUCED Routine TYPE AND SCREEN Routine 10/25/16 12:00 Magnesium Oxide [Mag Ox] 400 mg PO TIDWM 10/25/16 14:00 Warfarin [Coumadin] 5 mg PO QDWARFARIN 10/26/16 05:00 CBC W/O DIFF (HEMOGRAM) [HEME] DAILYLAB CMP, RFLX TO IONIZED CA IF [CHEM] DAILYLAB MAGNESIUM [CHEM] DAILYLAB PHOSPHORUS [CHEM] DAILYLAB PT WITH INR [COAG] DAILYLAB 10/27/16 05:00 CBC W/O DIFF (HEMOGRAM) [HEME] DAILYLAB CMP, RFLX TO IONIZED CA IF [CHEM] DAILYLAB MAGNESIUM [CHEM] DAILYLAB PHOSPHORUS [CHEM] DAILYLAB PT WITH INR [COAG] DAILYLAB 10/28/16 05:00 CBC W/O DIFF (HEMOGRAM) [HEME] DAILYLAB CMP, RFLX TO IONIZED CA IF [CHEM] DAILYLAB MAGNESIUM [CHEM] DAILYLAB PHOSPHORUS [CHEM] DAILYLAB 10/29/16 05:00 CBC W/O DIFF (HEMOGRAM) [HEME] DAILYLAB Plan Discussed with:: Patient, Spouse Time Spent: 31-60 minutes Subjective - Subjective Patient Reports: Other (Drowsy this morning after getting morphine and ambein last night. She appears pale. She is otherwise not having any significant pain. No fevers or chills.) Nursing Reports: No Complaints Objective Vital Signs: Vital Signs - 24 hr 10/24/16 10/24/16 10/24/16 18:50 22:00 23:59 Temperature 37.1 C 37.0 C Heart Rate 100 Heart Rate [ 91 Brachial] Heart Rate [ 118 H Radial] Respiratory 18 20 18 Rate Blood Pressure [Right Brachial artery] Blood Pressure 104/63 121/69 [Right Radial artery] O2 Saturation 93 95 10/25/16 10/25/1617 00:47 04:35 06:10 Temperature 36.6 C 36.9 C Heart Rate 88 Heart Rate [ Brachial] Heart Rate [ 114 H 112 H Radial] Respiratory 18 18 18 Rate Blood Pressure 120/70 [Right Brachial artery] Blood Pressure 116/71 [Right Radial artery] O2 Saturation 95 96 10/25/16 10/25/16 10/25/16 08:00 08:25 10:25 Temperature 36.5 C Heart Rate Heart Rate [ 105 H Brachial] Heart Rate [ 106 H 108 H Radial] Respiratory 19 Rate Blood Pressure 107/68 100/62 109/66 [Right Brachial artery] Blood Pressure [Right Radial artery] O2 Saturation 100 10/25/16 10/25/16 10/25/16 10:30 12:00 13:41 Temperature 36.3 C L Heart Rate 104 H Heart Rate [ 100 Brachial] Heart Rate [ Radial] Respiratory 20 18 Rate Blood Pressure 72/46 L 106/60 [Right Brachial artery] Blood Pressure [Right Radial artery] O2 Saturation 99 10/25/16 14:45 Temperature Heart Rate 101 H Heart Rate [ Brachial] Heart Rate [ Radial] Respiratory 18 Rate Blood Pressure [Right Brachial artery] Blood Pressure [Right Radial artery] O2 Saturation Oxygen O2 Source [With Activity] Room air O2 Source [Without Activity] Room air O2 Source Room air I&O (Last 24 Hrs): Intake and Output Totals x24h 10/23/16 10/24/16 10/25/16 23:59 23:59 23:59 Intake Total 8977 729 7495 Output Total 500 200 Balance 884 366 0803 General: Alert, Oriented x3, Cooperative, Mild distress (drowsy) HEENT: Atraumatic, PERRLA, EOMI, Other (mucus membranes) Neck: Supple, No JVD, No thyromegaly, +2 carotid pulse wo bruit, No LAD Lymphatic: no adenopathy Neuro: Alert, Non Focal, CN 2-12 Grossly Intact, Oriented Times 3 Cardiovascular: Normal S1, Normal S2, No murmurs, Other (Tachycardic) Respiratory: Chest non-tender, No respiratory distress, Wheezes, Rhonchi Abdomen: Normal bowel sounds, Soft, No hepatospenomegaly, Other (Right flank hematoma with bruising, large) Extremities: No clubbing, No cyanosis, No edema, Normal pulses, No tenderness/ swelling Comments/Notes: hematoma right flank - Results Results: Laboratory Results WBC 22.0 x10^3/uL (4.8-10.8) H 10/25/16 05:38 RBC 2.82 10^6/uL (4.20-5.40) L 10/25/16 05:38 Hgb 8.3 g/dL (12.0-16.0) L 10/25/16 05:38 Hct 25.5 % (37.0-47.0) L 10/25/16 05:38 MCV 90.3 fL (81.0-99.0) 10/25/16 05:38 MCH 29.5 pg (27.0-31.0) 10/25/16 05:38 MCHC 32.7 g/dL (32.0-36.0) 10/25/16 05:38 RDW 16.9 % (12.0-15.0) H 10/25/16 05:38 Plt Count 368 10^3/uL (130-450) 10/25/16 05:38 MPV 9.8 fL (7.9-10.8) 10/25/16 05:38 Neut # Not Reportable 10/23/16 09:50 Lymph # Not Reportable 10/23/16 09:50 [place] # Not Reportable 10/23/16 09:50 Eos # Not Reportable 10/23/16 09:50 Baso # Not Reportable 10/23/16 09:50 Absolute Nucleated RBC Not Reportable 10/23/16 09:50 Total Counted 100 10/23/16 09:50 Band Neuts % (Manual) 0 % (0-10) 10/23/16 09:50 Myelocytes % 1 % (-0) H 10/17/16 23:43 Neutrophils # (Manual) 13.7 10^3/uL (1.5-6.6) H 10/23/16 09:50 Lymphocytes # (Manual) 4.6 10^3/uL (1.5-3.5) H 10/23/16 09:50 Monocytes # (Manual) 1.4 10^3/uL (0.0-1.0) H 10/23/16 09:50 Eosinophils # (Manual) 0.2 10^3/uL (0-0.7) 10/23/16 09:50 Basophils # (Manual) 0.1 10^3/uL (0-0.1) 10/18/16 06:07 Nucleated RBCs 2 % 10/23/16 09:50 Differential Comment MANUAL DIFFERENTIAL 10/23/16 09:50 Manual Slide Review Indicated 10/22/16 06:13 WBC Morphology 1+ TOXIC GRANULATION (NORMAL) 1+ VACUOLATION (NORMAL) 09:50 WBC Morphology 1+ TOXIC GRANULATION (NORMAL) 1+ VACUOLATION (NORMAL) 09:50 Platelet Estimate NORMAL (130-450,000) (NORMAL) 10/22/16 06:13 Platelet Morphology NORMAL APPEARANCE (NORMAL) 10/22/16 06:13 RBC Morph Micro Appear 2+ HYPOCHROMASIA (NORMAL) 1+ OVALOCYTES (NORMAL) 1+ TARGET CELLS (NORMAL) 1+ BASO STIPPLING (NORMAL) 1+ TEARDROP CELLS (NORMAL) 1 + POLYCHROMASIA (NORMAL) 10/23/16 09:50 RBC Morph Micro Appear 2+ HYPOCHROMASIA (NORMAL) 1+ OVALOCYTES (NORMAL) 1+ TARGET CELLS (NORMAL) 1+ BASO STIPPLING (NORMAL) 1+ TEARDROP CELLS (NORMAL) 1 + POLYCHROMASIA (NORMAL) 10/23/16 09:50 RBC Morph Micro Appear 2+ HYPOCHROMASIA (NORMAL) 1+ OVALOCYTES (NORMAL) 1+ TARGET CELLS (NORMAL) 1+ BASO STIPPLING (NORMAL) 1+ TEARDROP CELLS (NORMAL) 1 + POLYCHROMASIA (NORMAL) 10/23/16 09:50 RBC Morph Micro Appear 2+ HYPOCHROMASIA (NORMAL) 1+ OVALOCYTES (NORMAL) 1+ TARGET CELLS (NORMAL) 1+ BASO STIPPLING (NORMAL) 1+ TEARDROP CELLS (NORMAL) 1 + POLYCHROMASIA (NORMAL) 10/23/16 09:50 RBC Morph Micro Appear 2+ HYPOCHROMASIA (NORMAL) 1+ OVALOCYTES (NORMAL) 1+ TARGET CELLS (NORMAL) 1+ BASO STIPPLING (NORMAL) 1+ TEARDROP CELLS (NORMAL) 1 + POLYCHROMASIA (NORMAL) 10/23/16 09:50 RBC Morph Micro Appear 2+ HYPOCHROMASIA (NORMAL) 1+ OVALOCYTES (NORMAL) 1+ TARGET CELLS (NORMAL) 1+ BASO STIPPLING (NORMAL) 1+ TEARDROP CELLS (NORMAL) 1 + POLYCHROMASIA (NORMAL) 10/23/16 09:50 PT 20.9 secs (9.9-12.6) H 10/25/16 05:38 INR 1.8 (0.8-1.2) H 10/25/16 05:38 APTT 31.8 secs (24.9-33.3) 10/17/16 23:43 Anti-Xa Level 0.5 U/mL (-0.7) 10/24/16 15:20 Sodium 141 mmol/L (135-145) 10/25/16 05:38 Potassium 4.4 mmol/L (3.5-5.0) 10/25/16 05:38 Chloride 104 mmol/L (101-111) 10/25/16 05:38 Carbon Dioxide 29 mmol/L (21-32) 10/25/16 05:38 Anion Gap 8.0 (6-13) 10/25/16 05:38 BUN 44 mg/dL (6-20) H 10/25/16 05:38 Creatinine 1.7 mg/dL (0.4-1.0) H 10/25/16 05:38 Estimated GFR (MDRD) 29 (>89) L 10/25/16 05:38 Glucose 98 mg/dL (70-100) 10/25/16 05:38 Glycated Hemoglobin 7.2 % (4.6-6.2) H 10/18/16 12:00 Estim Average Glucose 160 (70-100) H 10/18/16 12:00 Calcium 8.7 mg/dL (8.5-10.3) 10/25/16 05:38 Ionized Calcium NO 10/25/16 05:38 Phosphorus 4.0 mg/dL (2.5-4.6) 10/25/16 05:38 Magnesium 1.5 mg/dL (1.7-2.8) L 10/25/16 05:38 Iron 76 ug/dL (28-170) 10/24/16 13:14 TIBC 288 ug/dL (250-450) 10/24/16 13:14 % Saturation 26 % (20-50) 10/24/16 13:14 Transferrin 206 mg/dL (192-382) 10/24/16 13:14 Ferritin 71.5 ng/mL (11.0-306.8) 10/24/16 13:14 Total Bilirubin 1.1 mg/dL (0.2-1.0) H 10/25/16 05:38 AST 21 IU/L (10-42) 10/25/16 05:38 ALT 21 IU/L (10-60) 10/25/16 05:38 Alkaline Phosphatase 60 IU/L (42-121) 10/25/16 05:38 B-Natriuretic Peptide 178 pg/mL (5-100) H 10/17/16 23:43 Total Protein 5.9 g/dL (6.7-8.2) L 10/25/16 05:38 Albumin 2.9 g/dL (3.2-5.5) L 10/25/16 05:38 Globulin 3.0 g/dL (2.1-4.2) 10/25/16 05:38 Albumin/Globulin Ratio 1.0 (1.0-2.2) 10/25/16 05:38 Lipase 53 U/L (22-51) H 10/17/16 23:43 Vitamin B12 573 pg/mL (180-914) 10/24/16 13:14 Folate 40.00 ng/mL (5.90 - >24.8) 10/24/16 13:14 Urine Color YELLOW 10/22/16 08:45 Urine Clarity HAZY (CLEAR) 10/22/16 08:45 Urine pH 5.5 PH (5.0-7.5) 10/22/16 08:45 Ur Specific [place] 1.010 (1.002-1.030) 10/22/16 08:45 Urine Protein NEGATIVE mg/dL (NEGATIVE) 10/22/16 08:45 Urine Glucose (UA) NEGATIVE mg/dL (NEGATIVE) 10/22/16 08:45 Urine Ketones NEGATIVE mg/dL (NEGATIVE) 10/22/16 08:45 Urine Occult Blood NEGATIVE (NEGATIVE) 10/22/16 08:45 Urine Nitrite NEGATIVE (NEGATIVE) 10/22/16 08:45 Urine Bilirubin NEGATIVE (NEGATIVE) 10/22/16 08:45 Urine Urobilinogen 0.2 (NORMAL) E.U./dL (NORMAL) 10/22/16 08:45 Ur Leukocyte Esterase NEGATIVE (NEGATIVE) 10/22/16 08:45 Urine RBC 0-5 /HPF (0-5) 10/22/16 08:45 Urine WBC 0-3 /HPF (0-5) 10/22/16 08:45 Ur Squamous Epith Cells MOD Squamous (<= Few) H 10/22/16 08:45 Urine Bacteria Rare /HPF (None Seen) 10/22/16 08:45 Urine Culture Comments NOT INDICATED 10/22/16 08:45 Blood Type A POSITIVE 10/25/16 11:06 Antibody Screen NEGATIVE 10/25/16 11:06 Crossmatch IS Only See Detail 10/25/16 11:06
[2016-10-25] MEDS ORDERED: PHYTONADIONE 10 MG/ML AMP IVP ONE (19:00)
[2016-10-25] MEDS ORDERED: PHYTONADIONE 10 MG/ML AMP SUBQ SCH (19:33)
[2016-10-25] MEDS: oxyCODONE 5 MG TABLET PO PRN (19:35)
[2016-10-25] MEDS: PRAVASTATIN 40 MG TABLET PO SCH (21:30)
[2016-10-25] MEDS: amLODIPine 5 MG TABLET PO SCH (21:30)
[2016-10-25] MEDS: MORPHINE 2 MG/ML SYRINGE IVP PRN (21:48)
[2016-10-26] MEDS: MORPHINE 2 MG/ML SYRINGE IVP PRN ×2 (00:04→15:53)
[2016-10-26 01:04] LABS: INR 1.6 (0.8-1.2); PT - PROTHROMBIN TIME 18.3 secs (9.9-12.6)
[2016-10-26 01:10] LABS: ALBUMIN/GLOBULIN RATIO 0.9 (1.0-2.2); BILIRUBIN,TOTAL 1.3 mg/dL (0.2-1.0); BUN - BLOOD UREA NITROGEN 39 mg/dL (6-20); CALCIUM 8.7 mg/dL (8.5-10.3); CARBON DIOXIDE - CO2 28 mmol/L (21-32); CHLORIDE 104 mmol/L (101-111); CREATININE 1.6 mg/dL (0.4-1.0); GFR - MDRD 31 (>89); GLUCOSE 129 mg/dL (70-100); MAGNESIUM 1.6 mg/dL (1.7-2.8); PHOSPHORUS 3.2 mg/dL (2.5-4.6); POTASSIUM 4.7 mmol/L (3.5-5.0); SODIUM 140 mmol/L (135-145); TOTAL PROTEIN 6.3 g/dL (6.7-8.2)
[2016-10-26 01:28] LABS: BASOPHILS # (AUTO) 0.1 10^3/uL (0.0-0.1); BASOPHILS % (AUTO) 0.7 %; EOSINOPHILS # (AUTO) 0.4 10^3/uL (0.0-0.7); EOSINOPHILS % (AUTO) 2.3 %; HCT - HEMATOCRIT 33.1 % (37.0-47.0); HGB - HEMOGLOBIN 10.8 g/dL (12.0-16.0); LYMPHOCYTES # (AUTO) 2.9 10^3/uL (1.5-3.5); LYMPHOCYTES % (AUTO) 15.6 %; MEAN CORPUSCULAR HEMOGLOBIN 29.2 pg (27.0-31.0); MEAN CORPUSCULAR HGB CONC 32.5 g/dL (32.0-36.0); MEAN CORPUSCULAR VOLUME 89.6 fL (81.0-99.0); MEAN PLATELET VOLUME 9.6 fL (7.9-10.8); MONOCYTES # (AUTO) 1.5 10^3/uL (0.0-1.0); NEUTROPHILS # (AUTO) 13.7 10^3/uL (1.5-6.6); NEUTROPHILS % (AUTO) 73.4 %; NUCLEATED RED BLOOD CELLS AUTO 0.2 /100WBC; RED BLOOD COUNT 3.69 10^6/uL (4.20-5.40); RED CELL DISTRIBUTION WIDTH 15.6 % (12.0-15.0); UNCORRECTED WHITE BLOOD COUNT 18.7 x10^3/uL; WHITE BLOOD COUNT 18.7 x10^3/uL (4.8-10.8)
[2016-10-26 01:32] LABS: PLATELET ESTIMATE, MANUAL NORMAL (130-450,000) (NORMAL); PLATELET MORPHOLOGY NORMAL APPEARANCE (NORMAL)
[2016-10-26 01:33] LABS: NP AUTO DIFFERENTIAL? NO; NP MAN DIFFERENTIAL? YES
[2016-10-26] MEDS: oxyCODONE 5 MG TABLET PO PRN ×2 (01:50→06:13)
[2016-10-26] MEDS: ACETAMINOPHEN 325 MG TABLET PO PRN ×2 (03:02→11:43)
[2016-10-26] MEDS: SODIUM CHLORIDE FLUSH 0.9% 10 ML SYRINGE IVP SCH ×3 (06:13→21:09)
[2016-10-26] MEDS: BENZOCAINE/MENTHOL LOZENGE MM PRN ×2 (06:17→21:00)
[2016-10-26 06:44] LABS: HGB - HEMOGLOBIN 10.8 g/dL (12.0-16.0); MEAN CORPUSCULAR HEMOGLOBIN 28.5 pg (27.0-31.0); MEAN CORPUSCULAR HGB CONC 31.9 g/dL (32.0-36.0); MEAN CORPUSCULAR VOLUME 89.5 fL (81.0-99.0); MEAN PLATELET VOLUME 9.7 fL (7.9-10.8); RED BLOOD COUNT 3.8 10^6/uL (4.20-5.40); RED CELL DISTRIBUTION WIDTH 16.4 % (12.0-15.0); WHITE BLOOD COUNT 19.3 x10^3/uL (4.8-10.8)
[2016-10-26] MEDS: levoFLOXacin 250 MG TABLET PO SCH (08:01)
[2016-10-26] MEDS: guaiFENesin 600 MG TABLET PO SCH ×2 (08:01→21:07)
[2016-10-26] MEDS: PANTOPRAZOLE 40 MG VIAL IVP SCH ×2 (08:01→21:03)
[2016-10-26] MEDS: METOPROLOL SUCCINATE 50 MG TABLET PO SCH ×2 (08:01→21:08)
[2016-10-26] MEDS: POTASSIUM CHLORIDE 20 MEQ TABLET PO SCH (08:01)
[2016-10-26] MEDS: INSULIN ASPART 300 UNIT/3 ML PEN SUBQ SCH ×4 (08:01→21:08)
[2016-10-26] MEDS: ALLOPURINOL 100 MG TABLET PO SCH (08:01)
[2016-10-26] MEDS: SACCHAROMYCES BOULARDII 250 MG CAPSULE PO SCH ×2 (08:01→16:01)
[2016-10-26] MEDS: MAGNESIUM OXIDE 400 MG TABLET PO SCH ×3 (08:01→16:01)
[2016-10-26] MEDS: INSULIN GLARGINE 300 UNIT/3 ML PEN SUBQ SCH ×2 (08:02→21:08)
[2016-10-26] MEDS: POLYETHYLENE GLYCOL 3350 17 GM PACKET PO SCH (08:03)
--- NOTE | 2016-10-26 11:10 | PROVIDER PROGRESS NOTE ---
Assessment/Plan - Problem List (1) Acute blood loss anemia Assessment/Plan: Patient found to have drop in her hb from 11.4 to 8.3 Was on plavix, asa and coumadin all stopped Stool guiaic was negative Patient had right flank bruising CT abd revealed large hematoma originating in the right abdominal rectus muscle with extension to the right lateral abdominal wall and subQ tissues like occurred secondary to persistent coughing Given patients cardiac history and symptomatic anemia transfused 2 units PRBCs today for Hb of 8.3 This am hb is 10.8 came up appropriately and patient feels much better Continue to monitor h&h and for further bleeding for 1-2 more days Will hold ASA and Plavix Although initially restarted on coumadin will hold as patient has an IVC filter in place, given Vit K Once bleeding has resolved and hematoma is improving she may restart medications at 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 outpatient Will continue to monitor very closely if hb stable tomorrow maybe able to go home PT to re-evaluate patient today (2) Acute Kidney Injury Assessment/Plan: Likely secondary to acute blood loss [employer] up to 1.7 yesterday from baseline of 1.1 now down to 1.6 after 2 units of blood Stopped lisinopril Continue to monitor (3) CAP (community acquired pneumonia) Assessment/Plan: patient presented with shortness of breath and found to have a pneumonia on CT chest Initially received IV ceftriaxone and azithromycin for 3 days then switched to cefuroxime and azithromycin PO WBC still elevated today but likely related to GI bleeding Her repeat CXR showed pneumonia On Levaquin PO day 5 of 7 Patient hypoxic with exertion will likely need at least 2-3 L of O2 at home Will do walk test prior to discharge (4) COPD exacerbation Assessment/Plan: On duonebs was on prednisone but stopped due to bleeding Not on O2 at rest but still SOB with exertion and requires O2 with exertion Improving (5) Chest pain Assessment/Plan: Cardiac workup negative Likely secondary to coughing with history of rib fx and hematoma On tesslon pearles and mucinex (6) Diabetes Qualifiers: Diabetes mellitus type: type 2 Assessment/Plan: Continue home dose of lantus and SS insulin Stable (7) History of pulmonary embolism Assessment/Plan: Restart coumadin as patients Hb has stabilized and asa and plavix have been stopped (8) Hypertension Assessment/Plan: BP stable Continue home meds (9) Hyperlipidemia Assessment/Plan: On statin Stable (10) Chronic back pain Assessment/Plan: Continue oxycodone Stable (11) Lung mass Assessment/Plan: 3 cm mass seen on CT worse than prior CT Needs outpatient follow up CT or PET after resolution of infection (12) Hypomagnesemia Assessment/Plan: Replace with PO mag oxide - Current Meds Current Meds: Current Medications Generic Name Dose Route Start Last Admin Trade Name Freq PRN Reason Stop Dose Admin Acetaminophen 650 mg 10/18/16 02:31 10/26/16 03:02 Tylenol PO 650 mg Q4HR PRN Administration Pain 1 to 4 Albuterol/Ipratropium 3 ml 10/18/16 02:31 10/25/16 06:10 Duoneb INH 3 ml RTQID PRN Administration Wheezing Allopurinol 150 mg 10/18/16 09:00 10/26/16 08:01 Zyloprim PO 150 mg DAILY [facility] Administration Amlodipine Besylate 2.5 mg 10/21/16 21:00 10/25/16 21:30 Norvasc PO Not Given QPM [facility] Benzonatate 100 mg 10/18/16 20:12 10/24/16 20:06 Tessalon PO 100 mg TID PRN Administration Cough Calcium Carbonate/Glycine 600 mg 10/22/16 12:00 10/25/16 12:05 Calcium Carbonate PO 600 mg 1200 [facility] Administration Docusate Sodium 100 mg 10/18/16 11:21 10/22/16 08:57 Colace 100mg Capsule PO 100 mg BID PRN Administration Constipation Guaifenesin 600 mg 10/18/16 03:00 10/26/16 08:01 Mucinex PO 600 mg BID [facility] Administration Insulin Aspart 2 - 10 unit 10/18/16 12:00 10/26/16 08:01 Novolog SUBQ Not Given 0800,1200,1700,2100 [facility] Protocol Insulin Glargine 10 unit 10/25/16 10:30 10/26/16 08:02 Lantus Solostar SUBQ 10 unit BID [facility] Administration Levofloxacin 750 mg 10/22/16 09:00 10/26/16 08:01 Levaquin PO 750 mg DAILY [facility] Administration Magnesium Oxide 400 mg 10/25/16 12:00 10/26/16 08:01 Mag Ox PO 400 mg TIDWM [facility] Administration Metoprolol Succinate 50 mg 10/22/16 09:00 10/26/16 08:01 Toprol Xl PO 50 mg BID [place] Administration Morphine Sulfate 2 mg 10/18/16 02:31 10/26/16 00:04 Morphine IVP 2 mg Q2HR PRN Administration Pain 8 to 10 Ondansetron HCl 4 mg 10/22/16 13:52 10/22/16 19:56 Zofran Odt TL 4 mg Q4HR PRN Administration Nausea / Vomiting Oxycodone HCl 5 mg 10/18/16 02:31 10/24/16 21:33 Roxicodone PO 5 mg Q4HR PRN Administration Pain 5 to 7 Oxycodone HCl 10 mg 10/18/16 02:31 10/26/16 06:13 Roxicodone PO 10 mg Q4HR PRN Administration Pain 8 to 10 Pantoprazole Sodium 40 mg 10/23/16 11:00 10/26/16 08:01 Protonix IVP 40 mg BID [facility] Administration Polyethylene Glycol 17 gm 10/18/16 09:00 10/26/16 08:03 Miralax PO 17 gm DAILY [facility] Administration Potassium Chloride 40 meq 10/18/16 08:00 10/26/16 08:01 K-Dur PO 40 meq DAILYWM [facility] Administration Pravastatin Sodium 40 mg 10/18/16 21:00 10/25/16 21:30 Pravachol PO 40 mg QPM [facility] Administration Saccharomyces Boulardii 250 mg 10/18/16 08:00 10/26/16 08:01 Florastor PO 250 mg BIDWM [place] Administration Sodium Chloride 10 ml 10/18/16 02:31 10/25/16 18:16 Normal Saline Flush 0.9% IVP 10 ml PRN PRN Administration NEEDED PER PROVIDER ORDERS Sodium Chloride 10 ml 10/18/16 06:00 10/26/16 06:13 Normal Saline Flush 0.9% IVP 10 ml Q8HR [facility] Administration Throat Lozenges 1 lozenge 10/21/16 00:03 10/26/16 06:17 Cepacol MM 1 lozenge Q2HR PRN Administration Throat pain Zolpidem Tartrate 5 mg 10/18/16 02:31 10/25/16 01:34 Ambien PO 5 mg QPM PRN Administration Insomnia - Lab Result Lab results reviewed: Yes Fish Bone Diagrams: 10/26/16 05:52 10/26/16 00:50 - EKG Results EKG Interpreted Independently: Yes - Diagnostic Imaging Results Diagnostic Imaging Results: positive: Final report reviewed - Additional Planning Condition/Complexity: Guarded My Orders: My Active Orders 10/25/16 10:30 Insulin Glargine [Lantus Solostar] 10 unit SUBQ BID 10/25/16 10:40 Transfuse RBCs Leukoreduced [RC] ONCE 10/25/16 11:06 RBC, LEUKOREDUCED Routine TYPE AND SCREEN Routine 10/25/16 12:00 Magnesium Oxide [Mag Ox] 400 mg PO TIDWM 10/27/16 05:00 CBC W/O DIFF (HEMOGRAM) [HEME] DAILYLAB CMP, RFLX TO IONIZED CA IF [CHEM] DAILYLAB MAGNESIUM [CHEM] DAILYLAB PHOSPHORUS [CHEM] DAILYLAB PT WITH INR [COAG] DAILYLAB 10/28/16 05:00 CBC W/O DIFF (HEMOGRAM) [HEME] DAILYLAB CMP, RFLX TO IONIZED CA IF [CHEM] DAILYLAB MAGNESIUM [CHEM] DAILYLAB PHOSPHORUS [CHEM] DAILYLAB 10/29/16 05:00 CBC W/O DIFF (HEMOGRAM) [HEME] DAILYLAB Consult/Specialty: PT Plan Discussed with:: Patient Time Spent: 31-60 minutes Subjective - Subjective Patient Reports: Other (Drowsy this morning after receiving oxycodone. She otherwise states she is feeling weaker over last few days but no longer feels dizzy when standing. She denies chest pain and shortness of breath improving.) Nursing Reports: No Complaints Objective Vital Signs: Vital Signs - 24 hr 10/25/16 10/25/16 10/25/16 12:00 13:41 14:45 Temperature 36.3 C L Heart Rate 101 H Heart Rate [ 100 Brachial] Heart Rate [ Radial] Respiratory 18 18 Rate Blood Pressure 72/46 L 106/60 [Right Brachial artery] Blood Pressure [Right Radial artery] O2 Saturation 99 10/25/16 10/25/16 10/26/16 17:20 21:49 00:04 Temperature 36.5 C 36.7 C Heart Rate 102 H Heart Rate [ 105 H 99 Brachial] Heart Rate [ Radial] Respiratory 18 18 16 Rate Blood Pressure 101/63 117/69 [Right Brachial artery] Blood Pressure [Right Radial artery] O2 Saturation 94 97 10/26/16 10/26/16 10/26/16 00:35 04:52 07:59 Temperature 36.8 C Heart Rate Heart Rate [ 90 Brachial] Heart Rate [ 94 Radial] Respiratory 18 18 Rate Blood Pressure 128/72 [Right Brachial artery] Blood Pressure 126/57 L 120/71 [Right Radial artery] O2 Saturation 96 94 Oxygen O2 Source [With Activity] Room air O2 Source [Without Activity] Room air O2 Source Room air I&O (Last 24 Hrs): Intake and Output Totals x24h 10/24/16 10/25/16 10/26/16 23:59 23:59 23:59 Intake Total 948 2257 1050 Output Total 200 2 Balance 748 2257 1048 General: Alert, Oriented x3, Cooperative, Other (drowsy) HEENT: Atraumatic, PERRLA, EOMI, Mucous membr. moist/pink Neck: Supple, No JVD, No thyromegaly, +2 carotid pulse wo bruit, No LAD Lymphatic: no adenopathy Neuro: Alert, Non Focal, CN 2-12 Grossly Intact, Oriented Times 3 Cardiovascular: Regular rate, Normal S1, Normal S2, No murmurs Respiratory: Chest non-tender, No respiratory distress, Wheezes, Rhonchi Abdomen: Normal bowel sounds, Soft, No tenderness, No hepatospenomegaly, Other ( Hematoma right abdominal wall extending laterally to right flank) Extremities: No clubbing, No cyanosis, No edema, Normal pulses, No tenderness/ swelling Comments/Notes: Bruising from hematoma in right abd wall and right flank. - Results Results: Laboratory Results WBC 19.3 x10^3/uL (4.8-10.8) H 10/26/16 05:52 RBC 3.80 10^6/uL (4.20-5.40) L 10/26/16 05:52 Hgb 10.8 g/dL (12.0-16.0) L 10/26/16 05:52 Hct 34.0 % (37.0-47.0) L 10/26/16 05:52 MCV 89.5 fL (81.0-99.0) 10/26/16 05:52 MCH 28.5 pg (27.0-31.0) 10/26/16 05:52 MCHC 31.9 g/dL (32.0-36.0) L 10/26/16 05:52 RDW 16.4 % (12.0-15.0) H 10/26/16 05:52 Plt Count 352 10^3/uL (130-450) 10/26/16 05:52 MPV 9.7 fL (7.9-10.8) 10/26/16 05:52 Neut # 13.7 10^3/uL (1.5-6.6) H 10/26/16 00:50 Lymph # 2.9 10^3/uL (1.5-3.5) 10/26/16 00:50 [place] # 1.5 10^3/uL (0.0-1.0) H 10/26/16 00:50 Eos # 0.4 10^3/uL (0.0-0.7) 10/26/16 00:50 Baso # 0.1 10^3/uL (0.0-0.1) 10/26/16 00:50 Absolute Nucleated RBC 0.04 x10^3/uL 10/26/16 00:50 Total Counted 100 10/23/16 09:50 Band Neuts % (Manual) Not Reportable 10/26/16 00:50 Myelocytes % 1 % (-0) H 10/17/16 23:43 Neutrophils # (Manual) 13.7 10^3/uL (1.5-6.6) H 10/23/16 09:50 Lymphocytes # (Manual) 4.6 10^3/uL (1.5-3.5) H 10/23/16 09:50 Monocytes # (Manual) 1.4 10^3/uL (0.0-1.0) H 10/23/16 09:50 Eosinophils # (Manual) 0.2 10^3/uL (0-0.7) 10/23/16 09:50 Basophils # (Manual) 0.1 10^3/uL (0-0.1) 10/18/16 06:07 Nucleated RBCs 0.2 /100WBC 10/26/16 00:50 Differential Comment MANUAL=AUTO DIFF 10/26/16 00:50 Manual Slide Review Indicated 10/22/16 06:13 WBC Morphology 1+ TOXIC GRANULATION (NORMAL) 1+ VACUOLATION (NORMAL) 09:50 WBC Morphology 1+ TOXIC GRANULATION (NORMAL) 1+ VACUOLATION (NORMAL) 09:50 Platelet Estimate NORMAL (130-450,000) (NORMAL) 10/26/16 00:50 Platelet Morphology NORMAL APPEARANCE (NORMAL) 10/26/16 00:50 RBC Morph Micro Appear 2+ HYPOCHROMASIA (NORMAL) 1+ OVALOCYTES (NORMAL) 1+ TARGET CELLS (NORMAL) 1+ BASO STIPPLING (NORMAL) 1+ TEARDROP CELLS (NORMAL) 1 + POLYCHROMASIA (NORMAL) 10/23/16 09:50 RBC Morph Micro Appear 2+ HYPOCHROMASIA (NORMAL) 1+ OVALOCYTES (NORMAL) 1+ TARGET CELLS (NORMAL) 1+ BASO STIPPLING (NORMAL) 1+ TEARDROP CELLS (NORMAL) 1 + POLYCHROMASIA (NORMAL) 10/23/16 09:50 RBC Morph Micro Appear 2+ HYPOCHROMASIA (NORMAL) 1+ OVALOCYTES (NORMAL) 1+ TARGET CELLS (NORMAL) 1+ BASO STIPPLING (NORMAL) 1+ TEARDROP CELLS (NORMAL) 1 + POLYCHROMASIA (NORMAL) 10/23/16 09:50 RBC Morph Micro Appear 2+ HYPOCHROMASIA (NORMAL) 1+ OVALOCYTES (NORMAL) 1+ TARGET CELLS (NORMAL) 1+ BASO STIPPLING (NORMAL) 1+ TEARDROP CELLS (NORMAL) 1 + POLYCHROMASIA (NORMAL) 10/23/16 09:50 RBC Morph Micro Appear 2+ HYPOCHROMASIA (NORMAL) 1+ OVALOCYTES (NORMAL) 1+ TARGET CELLS (NORMAL) 1+ BASO STIPPLING (NORMAL) 1+ TEARDROP CELLS (NORMAL) 1 + POLYCHROMASIA (NORMAL) 10/23/16 09:50 RBC Morph Micro Appear 1+ TARGET CELLS (NORMAL) 1+ OVALOCYTES (NORMAL) 1+ POLYCHROMASIA (NORMAL) 10/26/16 00:50 RBC Morph Micro Appear 1+ TARGET CELLS (NORMAL) 1+ OVALOCYTES (NORMAL) 1+ POLYCHROMASIA (NORMAL) 10/26/16 00:50 RBC Morph Micro Appear 1+ TARGET CELLS (NORMAL) 1+ OVALOCYTES (NORMAL) 1+ POLYCHROMASIA (NORMAL) 10/26/16 00:50 PT 18.3 secs (9.9-12.6) H 10/26/16 00:50 INR 1.6 (0.8-1.2) H 10/26/16 00:50 APTT 31.8 secs (24.9-33.3) 10/17/16 23:43 Anti-Xa Level 0.5 U/mL (-0.7) 10/24/16 15:20 Sodium 140 mmol/L (135-145) 10/26/16 00:50 Potassium 4.7 mmol/L (3.5-5.0) 10/26/16 00:50 Chloride 104 mmol/L (101-111) 10/26/16 00:50 Carbon Dioxide 28 mmol/L (21-32) 10/26/16 00:50 Anion Gap 8.0 (6-13) 10/26/16 00:50 BUN 39 mg/dL (6-20) H 10/26/16 00:50 Creatinine 1.6 mg/dL (0.4-1.0) H 10/26/16 00:50 Estimated GFR (MDRD) 31 (>89) L 10/26/16 00:50 Glucose 129 mg/dL (70-100) H 10/26/16 00:50 Glycated Hemoglobin 7.2 % (4.6-6.2) H 10/18/16 12:00 Estim Average Glucose 160 (70-100) H 10/18/16 12:00 Calcium 8.7 mg/dL (8.5-10.3) 10/26/16 00:50 Ionized Calcium NO 10/26/16 00:50 Phosphorus 3.2 mg/dL (2.5-4.6) 10/26/16 00:50 Magnesium 1.6 mg/dL (1.7-2.8) L 10/26/16 00:50 Iron 76 ug/dL (28-170) 10/24/16 13:14 TIBC 288 ug/dL (250-450) 10/24/16 13:14 % Saturation 26 % (20-50) 10/24/16 13:14 Transferrin 206 mg/dL (192-382) 10/24/16 13:14 Ferritin 71.5 ng/mL (11.0-306.8) 10/24/16 13:14 Total Bilirubin 1.3 mg/dL (0.2-1.0) H 10/26/16 00:50 AST 21 IU/L (10-42) 10/26/16 00:50 ALT 20 IU/L (10-60) 10/26/16 00:50 Alkaline Phosphatase 63 IU/L (42-121) 10/26/16 00:50 B-Natriuretic Peptide 178 pg/mL (5-100) H 10/17/16 23:43 Total Protein 6.3 g/dL (6.7-8.2) L 10/26/16 00:50 Albumin 3.0 g/dL (3.2-5.5) L 10/26/16 00:50 Globulin 3.3 g/dL (2.1-4.2) 10/26/16 00:50 Albumin/Globulin Ratio 0.9 (1.0-2.2) L 10/26/16 00:50 Lipase 53 U/L (22-51) H 10/17/16 23:43 Vitamin B12 573 pg/mL (180-914) 10/24/16 13:14 Folate 40.00 ng/mL (5.90 - >24.8) 10/24/16 13:14 Urine Color YELLOW 10/22/16 08:45 Urine Clarity HAZY (CLEAR) 10/22/16 08:45 Urine pH 5.5 PH (5.0-7.5) 10/22/16 08:45 Ur Specific [place] 1.010 (1.002-1.030) 10/22/16 08:45 Urine Protein NEGATIVE mg/dL (NEGATIVE) 10/22/16 08:45 Urine Glucose (UA) NEGATIVE mg/dL (NEGATIVE) 10/22/16 08:45 Urine Ketones NEGATIVE mg/dL (NEGATIVE) 10/22/16 08:45 Urine Occult Blood NEGATIVE (NEGATIVE) 10/22/16 08:45 Urine Nitrite NEGATIVE (NEGATIVE) 10/22/16 08:45 Urine Bilirubin NEGATIVE (NEGATIVE) 10/22/16 08:45 Urine Urobilinogen 0.2 (NORMAL) E.U./dL (NORMAL) 10/22/16 08:45 Ur Leukocyte Esterase NEGATIVE (NEGATIVE) 10/22/16 08:45 Urine RBC 0-5 /HPF (0-5) 10/22/16 08:45 Urine WBC 0-3 /HPF (0-5) 10/22/16 08:45 Ur Squamous Epith Cells MOD Squamous (<= Few) H 10/22/16 08:45 Urine Bacteria Rare /HPF (None Seen) 10/22/16 08:45 Urine Culture Comments NOT INDICATED 10/22/16 08:45 Blood Type A POSITIVE 10/25/16 11:06 Antibody Screen NEGATIVE 10/25/16 11:06 Crossmatch IS Only See Detail 10/25/16 11:06
[2016-10-26] MEDS: CALCIUM CARBONATE 1,250 MG/5 ML UDC PO SCH (11:43)
[2016-10-26] MEDS: IPRATROPIUM/ALBUTEROL 3 ML NEB INH PRN ×2 (15:21→20:16)
[2016-10-26] MEDS: PRAVASTATIN 40 MG TABLET PO SCH (21:08)
[2016-10-26] MEDS: NYSTATIN 500000 UNITS/5 ML UDC PO SCH (21:08)
[2016-10-26] MEDS: amLODIPine 5 MG TABLET PO SCH (21:16)
[2016-10-26] MEDS: ZOLPIDEM 5 MG TABLET PO PRN (23:40)
[2016-10-27] MEDS: oxyCODONE 5 MG TABLET PO PRN ×3 (04:28→12:44)
[2016-10-27 05:43] LABS: HCT - HEMATOCRIT 33.9 % (37.0-47.0); HGB - HEMOGLOBIN 10.7 g/dL (12.0-16.0); MEAN CORPUSCULAR HEMOGLOBIN 28.4 pg (27.0-31.0); MEAN CORPUSCULAR HGB CONC 31.5 g/dL (32.0-36.0); MEAN CORPUSCULAR VOLUME 90.2 fL (81.0-99.0); MEAN PLATELET VOLUME 9.2 fL (7.9-10.8); RED BLOOD COUNT 3.76 10^6/uL (4.20-5.40); WHITE BLOOD COUNT 19.1 x10^3/uL (4.8-10.8)
[2016-10-27 05:54] LABS: INR 1.3 (0.8-1.2); PT - PROTHROMBIN TIME 14.5 secs (9.9-12.6)
[2016-10-27] MEDS: SODIUM CHLORIDE FLUSH 0.9% 10 ML SYRINGE IVP SCH ×3 (05:59→20:12)
[2016-10-27] MEDS: BENZOCAINE/MENTHOL LOZENGE MM PRN (05:59)
[2016-10-27 06:05] LABS: ALBUMIN/GLOBULIN RATIO 0.9 (1.0-2.2); BILIRUBIN,TOTAL 1.3 mg/dL (0.2-1.0); BUN - BLOOD UREA NITROGEN 32 mg/dL (6-20); CALCIUM 8.7 mg/dL (8.5-10.3); CARBON DIOXIDE - CO2 27 mmol/L (21-32); CHLORIDE 104 mmol/L (101-111); CREATININE 1.5 mg/dL (0.4-1.0); GFR - MDRD 33 (>89); GLUCOSE 126 mg/dL (70-100); MAGNESIUM 1.7 mg/dL (1.7-2.8); PHOSPHORUS 3.1 mg/dL (2.5-4.6); POTASSIUM 4.3 mmol/L (3.5-5.0); SODIUM 139 mmol/L (135-145); TOTAL PROTEIN 6.1 g/dL (6.7-8.2)
[2016-10-27] MEDS: IPRATROPIUM/ALBUTEROL 3 ML NEB INH PRN ×2 (07:48→18:02)
[2016-10-27] MEDS: POLYETHYLENE GLYCOL 3350 17 GM PACKET PO SCH (08:21)
[2016-10-27] MEDS: INSULIN ASPART 300 UNIT/3 ML PEN SUBQ SCH ×4 (08:22→20:12)
[2016-10-27] MEDS: INSULIN GLARGINE 300 UNIT/3 ML PEN SUBQ SCH ×2 (08:22→20:12)
[2016-10-27] MEDS: MAGNESIUM OXIDE 400 MG TABLET PO SCH ×3 (08:24→16:10)
[2016-10-27] MEDS: guaiFENesin 600 MG TABLET PO SCH ×2 (08:24→20:05)
[2016-10-27] MEDS: SODIUM CHLORIDE FLUSH 0.9% 10 ML SYRINGE IVP PRN ×2 (08:24→10:27)
[2016-10-27] MEDS: PANTOPRAZOLE 40 MG VIAL IVP SCH ×2 (08:24→20:05)
[2016-10-27] MEDS: SACCHAROMYCES BOULARDII 250 MG CAPSULE PO SCH ×2 (08:24→16:10)
[2016-10-27] MEDS: ALLOPURINOL 100 MG TABLET PO SCH (08:25)
[2016-10-27] MEDS: POTASSIUM CHLORIDE 20 MEQ TABLET PO SCH (08:25)
[2016-10-27] MEDS: NYSTATIN 500000 UNITS/5 ML UDC PO SCH ×4 (08:25→20:05)
[2016-10-27] MEDS: METOPROLOL SUCCINATE 50 MG TABLET PO SCH ×2 (08:25→20:05)
[2016-10-27] MEDS: levoFLOXacin 250 MG TABLET PO SCH (08:25)
[2016-10-27] MEDS: HYDROmorphone 1 MG/ML SYRINGE IVP PRN ×3 (10:26→20:04)
[2016-10-27] MEDS: CALCIUM CARBONATE 1,250 MG/5 ML UDC PO SCH (12:43)
--- NOTE | 2016-10-27 13:40 | PROVIDER PROGRESS NOTE ---
Assessment/Plan - Problem List (1) Acute blood loss anemia Assessment/Plan: Patient found to have drop in her hb from 11.4 to 8.3 Was on plavix, asa and coumadin all stopped Stool guiaic was negative Patient had right flank bruising CT abd revealed large hematoma originating in the right abdominal rectus muscle with extension to the right lateral abdominal wall and subQ tissues like occurred secondary to persistent coughing Given patients cardiac history and symptomatic anemia transfused 2 units PRBCs today for Hb of 8.3 This am hb is 10.8 came up appropriately and patient feels much better Continue to monitor h&h and for further bleeding for 1-2 more days Stopped ASA and Plavix Although initially restarted on coumadin will hold as patient has an IVC filter in place, given Vit K Once bleeding has resolved and hematoma is improving she may restart medications 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 Hb stable x2 days but WBC still elevated and patient still has a lot of pain in the right flank area of hematoma Will monitor Hb and WBC one more day if stable tomorrow will discharge patient PT evaluated and patient weak but improving from yesterday and maybe able to go home with husbands assistance but still needs to walk tomorrow (2) Acute Kidney Injury Assessment/Plan: Likely secondary to 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 loss 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 up to 1.7 from baseline of 1.1 now down to 1.6 after 2 units of blood now down to 1.5 Stopped lisinopril Continue to monitor Improving (3) CAP (community acquired pneumonia) Assessment/Plan: patient presented with shortness of breath and found to have a pneumonia on CT chest Initially received IV ceftriaxone and azithromycin for 3 days then switched to cefuroxime and azithromycin PO WBC still elevated today but likely related to GI bleeding Her repeat CXR showed pneumonia On Levaquin PO day 6 of 7 Patient hypoxic with exertion will likely need at least 2-3 L of O2 at home Will do walk test prior to discharge Will complete abx tomorrow prior to discharge (4) COPD exacerbation Assessment/Plan: On duonebs was on prednisone but stopped due to bleeding Not on O2 at rest but still SOB with exertion and requires O2 with exertion Improving (5) Chest pain Assessment/Plan: Cardiac workup negative Likely secondary to coughing with history of rib fx and hematoma On tesslon pearles and mucinex (6) Diabetes Qualifiers: Diabetes mellitus type: type 2 Assessment/Plan: Continue home dose of lantus and SS insulin Stable (7) History of pulmonary embolism Assessment/Plan: Coumadin stopped as patient has IVC filter and was bleeding Will need to follow up with PCP as outpatient to restart coumadin (8) Hypertension Assessment/Plan: BP stable Continue home meds (9) Hyperlipidemia Assessment/Plan: On statin Stable (10) Chronic back pain Assessment/Plan: Continue oxycodone and dilaudid Stable (11) Lung mass Assessment/Plan: 3 cm mass seen on CT worse than prior CT Needs outpatient follow up CT or PET after resolution of infection (12) Hypomagnesemia Assessment/Plan: Replaced with PO mag oxide Improved - Current Meds Current Meds: Current Medications Generic Name Dose Route Start Last Admin Trade Name Freq PRN Reason Stop Dose Admin Acetaminophen 650 mg 10/18/16 02:31 10/26/16 11:43 Tylenol PO 650 mg Q4HR PRN Administration Pain 1 to 4 Albuterol/Ipratropium 3 ml 10/18/16 02:31 10/27/16 07:48 Duoneb INH 3 ml RTQID PRN Administration Wheezing Allopurinol 150 mg 10/18/16 09:00 10/27/16 08:25 Zyloprim PO 150 mg DAILY LAWRENCE Administration Amlodipine Besylate 2.5 mg 10/21/16 21:00 10/26/16 21:16 Norvasc PO Not Given QPM LAWRENCE Benzonatate 100 mg 10/18/16 20:12 10/24/16 20:06 Tessalon PO 100 mg TID PRN Administration Cough Calcium Carbonate/Glycine 600 mg 10/22/16 12:00 10/27/16 12:43 Calcium Carbonate PO 600 mg 1200 LAWRENCE Administration Docusate Sodium 100 mg 10/18/16 11:21 10/22/16 08:57 Colace 100mg Capsule PO 100 mg BID PRN Administration Constipation Guaifenesin 600 mg 10/18/16 03:00 10/27/16 08:24 Mucinex PO 600 mg BID LAWRENCE Administration Hydromorphone HCl 0.5 mg 10/27/16 10:15 10/27/16 12:04 Dilaudid Inj IVP 0.5 mg Q2HR PRN Administration PAIN Insulin Aspart 2 - 10 unit 10/18/16 12:00 10/27/16 12:05 Novolog SUBQ 4 unit 0800,1200,1700,2100 LAWRENCE Administration Protocol Insulin Glargine 10 unit 10/25/16 10:30 10/27/16 08:22 Lantus Solostar SUBQ 10 unit BID LAWRENCE Administration Levofloxacin 750 mg 10/22/16 09:00 10/27/16 08:25 Levaquin PO 750 mg DAILY LAWRENCE Administration Magnesium Oxide 400 mg 10/25/16 12:00 10/27/16 12:44 Mag Ox PO 400 mg TIDWM LAWRENCE Administration Metoprolol Succinate 50 mg 10/22/16 09:00 10/27/16 08:25 Toprol Xl PO 50 mg BID LAWRENCE Administration Nystatin 5 ml 10/26/16 21:00 10/27/16 12:44 Mycostatin PO 5 ml QID LAWRENCE Administration Ondansetron HCl 4 mg 10/22/16 13:52 10/22/16 19:56 Zofran Odt TL 4 mg Q4HR PRN Administration Nausea / Vomiting Oxycodone HCl 5 mg 10/18/16 02:31 10/27/16 04:28 Roxicodone PO 5 mg Q4HR PRN Administration Pain 5 to 7 Oxycodone HCl 10 mg 10/18/16 02:31 10/27/16 12:44 Roxicodone PO 10 mg Q4HR PRN Administration Pain 8 to 10 Pantoprazole Sodium 40 mg 10/23/16 11:00 10/27/16 08:24 Protonix IVP 40 mg BID LAWRENCE Administration Polyethylene Glycol 17 gm 10/18/16 09:00 10/27/16 08:21 Miralax PO 17 gm DAILY LAWRENCE Administration Potassium Chloride 40 meq 10/18/16 08:00 10/27/16 08:25 K-Dur PO 40 meq DAILYWM LAWRENCE Administration Pravastatin Sodium 40 mg 10/18/16 21:00 10/26/16 21:08 Pravachol PO 40 mg QPM LAWRENCE Administration Saccharomyces Boulardii 250 mg 10/18/16 08:00 10/27/16 08:24 Florastor PO 250 mg BIDWM LA[facility]ENCE Administration Sodium Chloride 10 ml 10/18/16 02:31 10/27/16 10:27 Normal Saline Flush 0.9% IVP 10 ml PRN PRN Administration NEEDED PER PROVIDER ORDERS Sodium Chloride 10 ml 10/18/16 06:00 10/27/16 12:07 Normal Saline Flush 0.9% IVP 10 ml Q8HR LAWRENCE Administration Throat Lozenges 1 lozenge 10/21/16 00:03 10/27/16 05:59 Cepacol MM 1 lozenge Q2HR PRN Administration Throat pain Zolpidem Tartrate 5 mg 10/18/16 02:31 10/26/16 23:40 Ambien PO 5 mg QPM PRN Administration Insomnia - Lab Result Lab results reviewed: Yes Fish Bone Diagrams: 10/27/16 05:36 10/27/16 05:36 - EKG Results EKG Interpreted Independently: Yes - Diagnostic Imaging Results Diagnostic Imaging Results: positive: Final report reviewed - Additional Planning Condition/Complexity: Improved My Orders: My Active Orders 10/26/16 13:45 Abdominal Binder [RC] DAILY 10/27/16 10:15 HYDROmorphone INJ [Dilaudid Inj] 0.5 mg IVP Q2HR PRN 10/28/16 05:00 CBC W/O DIFF (HEMOGRAM) [HEME] DAILYLAB CMP, RFLX TO IONIZED CA IF [CHEM] DAILYLAB MAGNESIUM [CHEM] DAILYLAB PHOSPHORUS [CHEM] DAILYLAB 10/29/16 05:00 CBC W/O DIFF (HEMOGRAM) [HEME] DAILYLAB Consult/Specialty: PT Time Spent: 31-60 minutes Subjective - Subjective Patient Reports: Other (Patient still having right flank pain. Nurse is changing her abdominal binder. Patient states she still gets short of breath with exertion but improving. She otherwise feels ok. Denies any fevers or chills.) Objective Vital Signs: Vital Signs - 24 hr 10/26/16 10/26/16 10/26/16 15:23 16:10 20:16 Temperature 36.7 C Heart Rate 96 95 Heart Rate [ 98 Brachial] Respiratory 20 18 16 Rate Blood Pressure [Right Brachial artery] Blood Pressure 106/66 [Right Radial artery] O2 Saturation 96 10/27/16 10/27/16 10/27/16 01:12 06:00 07:52 Temperature 36.8 C Heart Rate 99 Heart Rate [ 104 H Brachial] Respiratory 20 18 Rate Blood Pressure 123/70 [Right Brachial artery] Blood Pressure 142/81 H [Right Radial artery] O2 Saturation 95 10/27/16 07:57 Temperature 36.8 C Heart Rate Heart Rate [ 98 Brachial] Respiratory 19 Rate Blood Pressure [Right Brachial artery] Blood Pressure 162/81 H [Right Radial artery] O2 Saturation 99 Oxygen O2 Source [With Activity] Room air O2 Source [Without Activity] Room air O2 Source Room air I&O (Last 24 Hrs): Intake and Output Totals x24h 10/25/16 10/26/16 10/27/16 23:59 23:59 23:59 Intake Total 2257 2750 870 Output Total 503 1 Balance 2257 2247 869 General: Alert, Oriented x3, Cooperative, Mild distress (pain in the right flank ) HEENT: Atraumatic, PERRLA, EOMI, Mucous membr. moist/pink Neck: Supple, No JVD, No thyromegaly, +2 carotid pulse wo bruit, No LAD Lymphatic: no adenopathy Neuro: Alert, Non Focal, CN 2-12 Grossly Intact, Oriented Times 3 Cardiovascular: Regular rate, Normal S1, Normal S2, No murmurs Respiratory: Chest non-tender, Wheezes (improved), Rhonchi (mild) Abdomen: Normal bowel sounds, Soft, No hepatospenomegaly, Other (Right flank hematoma is stable with purple brusing, tender) Extremities: No clubbing, No cyanosis, No edema, Normal pulses Comments/Notes: Right flank large hematoma stretching from abdominal wall anteriorly to lateral abdominal wall. - Results Results: Laboratory Results WBC 19.1 x10^3/uL (4.8-10.8) H 10/27/16 05:36 RBC 3.76 10^6/uL (4.20-5.40) L 10/27/16 05:36 Hgb 10.7 g/dL (12.0-16.0) L 10/27/16 05:36 Hct 33.9 % (37.0-47.0) L 10/27/16 05:36 MCV 90.2 fL (81.0-99.0) 10/27/16 05:36 MCH 28.4 pg (27.0-31.0) 10/27/16 05:36 MCHC 31.5 g/dL (32.0-36.0) L 10/27/16 05:36 RDW 16.0 % (12.0-15.0) H 10/27/16 05:36 Plt Count 380 10^3/uL (130-450) 10/27/16 05:36 MPV 9.2 fL (7.9-10.8) 10/27/16 05:36 Neut # 13.7 10^3/uL (1.5-6.6) H 10/26/16 00:50 Lymph # 2.9 10^3/uL (1.5-3.5) 10/26/16 00:50 [place] # 1.5 10^3/uL (0.0-1.0) H 10/26/16 00:50 Eos # 0.4 10^3/uL (0.0-0.7) 10/26/16 00:50 Baso # 0.1 10^3/uL (0.0-0.1) 10/26/16 00:50 Absolute Nucleated RBC 0.04 x10^3/uL 10/26/16 00:50 Total Counted 100 10/23/16 09:50 Band Neuts % (Manual) Not Reportable 10/26/16 00:50 Myelocytes % 1 % (-0) H 10/17/16 23:43 Neutrophils # (Manual) 13.7 10^3/uL (1.5-6.6) H 10/23/16 09:50 Lymphocytes # (Manual) 4.6 10^3/uL (1.5-3.5) H 10/23/16 09:50 Monocytes # (Manual) 1.4 10^3/uL (0.0-1.0) H 10/23/16 09:50 Eosinophils # (Manual) 0.2 10^3/uL (0-0.7) 10/23/16 09:50 Basophils # (Manual) 0.1 10^3/uL (0-0.1) 10/18/16 06:07 Nucleated RBCs 0.2 /100WBC 10/26/16 00:50 Differential Comment MANUAL=AUTO DIFF 10/26/16 00:50 Manual Slide Review Indicated 10/22/16 06:13 WBC Morphology 1+ TOXIC GRANULATION (NORMAL) 1+ VACUOLATION (NORMAL) 09:50 WBC Morphology 1+ TOXIC GRANULATION (NORMAL) 1+ VACUOLATION (NORMAL) 09:50 Platelet Estimate NORMAL (130-450,000) (NORMAL) 10/26/16 00:50 Platelet Morphology NORMAL APPEARANCE (NORMAL) 10/26/16 00:50 RBC Morph Micro Appear 2+ HYPOCHROMASIA (NORMAL) 1+ OVALOCYTES (NORMAL) 1+ TARGET CELLS (NORMAL) 1+ BASO STIPPLING (NORMAL) 1+ TEARDROP CELLS (NORMAL) 1 + POLYCHROMASIA (NORMAL) 10/23/16 09:50 RBC Morph Micro Appear 2+ HYPOCHROMASIA (NORMAL) 1+ OVALOCYTES (NORMAL) 1+ TARGET CELLS (NORMAL) 1+ BASO STIPPLING (NORMAL) 1+ TEARDROP CELLS (NORMAL) 1 + POLYCHROMASIA (NORMAL) 10/23/16 09:50 RBC Morph Micro Appear 2+ HYPOCHROMASIA (NORMAL) 1+ OVALOCYTES (NORMAL) 1+ TARGET CELLS (NORMAL) 1+ BASO STIPPLING (NORMAL) 1+ TEARDROP CELLS (NORMAL) 1 + POLYCHROMASIA (NORMAL) 10/23/16 09:50 RBC Morph Micro Appear 2+ HYPOCHROMASIA (NORMAL) 1+ OVALOCYTES (NORMAL) 1+ TARGET CELLS (NORMAL) 1+ BASO STIPPLING (NORMAL) 1+ TEARDROP CELLS (NORMAL) 1 + POLYCHROMASIA (NORMAL) 10/23/16 09:50 RBC Morph Micro Appear 2+ HYPOCHROMASIA (NORMAL) 1+ OVALOCYTES (NORMAL) 1+ TARGET CELLS (NORMAL) 1+ BASO STIPPLING (NORMAL) 1+ TEARDROP CELLS (NORMAL) 1 + POLYCHROMASIA (NORMAL) 10/23/16 09:50 RBC Morph Micro Appear 1+ TARGET CELLS (NORMAL) 1+ OVALOCYTES (NORMAL) 1+ POLYCHROMASIA (NORMAL) 10/26/16 00:50 RBC Morph Micro Appear 1+ TARGET CELLS (NORMAL) 1+ OVALOCYTES (NORMAL) 1+ POLYCHROMASIA (NORMAL) 10/26/16 00:50 RBC Morph Micro Appear 1+ TARGET CELLS (NORMAL) 1+ OVALOCYTES (NORMAL) 1+ POLYCHROMASIA (NORMAL) 10/26/16 00:50 PT 14.5 secs (9.9-12.6) H 10/27/16 05:36 INR 1.3 (0.8-1.2) H 10/27/16 05:36 APTT 31.8 secs (24.9-33.3) 10/17/16 23:43 Anti-Xa Level 0.5 U/mL (-0.7) 10/24/16 15:20 Sodium 139 mmol/L (135-145) 10/27/16 05:36 Potassium 4.3 mmol/L (3.5-5.0) 10/27/16 05:36 Chloride 104 mmol/L (101-111) 10/27/16 05:36 Carbon Dioxide 27 mmol/L (21-32) 10/27/16 05:36 Anion Gap 8.0 (6-13) 10/27/16 05:36 BUN 32 mg/dL (6-20) H 10/27/16 05:36 Creatinine 1.5 mg/dL (0.4-1.0) H 10/27/16 05:36 Estimated GFR (MDRD) 33 (>89) L 10/27/16 05:36 Glucose 126 mg/dL (70-100) H 10/27/16 05:36 Glycated Hemoglobin 7.2 % (4.6-6.2) H 10/18/16 12:00 Estim Average Glucose 160 (70-100) H 10/18/16 12:00 Calcium 8.7 mg/dL (8.5-10.3) 10/27/16 05:36 Ionized Calcium NO 10/27/16 05:36 Phosphorus 3.1 mg/dL (2.5-4.6) 10/27/16 05:36 Magnesium 1.7 mg/dL (1.7-2.8) 10/27/16 05:36 Iron 76 ug/dL (28-170) 10/24/16 13:14 TIBC 288 ug/dL (250-450) 10/24/16 13:14 % Saturation 26 % (20-50) 10/24/16 13:14 Transferrin 206 mg/dL (192-382) 10/24/16 13:14 Ferritin 71.5 ng/mL (11.0-306.8) 10/24/16 13:14 Total Bilirubin 1.3 mg/dL (0.2-1.0) H 10/27/16 05:36 AST 20 IU/L (10-42) 10/27/16 05:36 ALT 17 IU/L (10-60) 10/27/16 05:36 Alkaline Phosphatase 56 IU/L (42-121) 10/27/16 05:36 B-Natriuretic Peptide 178 pg/mL (5-100) H 10/17/16 23:43 Total Protein 6.1 g/dL (6.7-8.2) L 10/27/16 05:36 Albumin 2.9 g/dL (3.2-5.5) L 10/27/16 05:36 Globulin 3.2 g/dL (2.1-4.2) 10/27/16 05:36 Albumin/Globulin Ratio 0.9 (1.0-2.2) L 10/27/16 05:36 Lipase 53 U/L (22-51) H 10/17/16 23:43 Vitamin B12 573 pg/mL (180-914) 10/24/16 13:14 Folate 40.00 ng/mL (5.90 - >24.8) 10/24/16 13:14 Urine Color YELLOW 10/22/16 08:45 Urine Clarity HAZY (CLEAR) 10/22/16 08:45 Urine pH 5.5 PH (5.0-7.5) 10/22/16 08:45 Ur Specific [place] 1.010 (1.002-1.030) 10/22/16 08:45 Urine Protein NEGATIVE mg/dL (NEGATIVE) 10/22/16 08:45 Urine Glucose (UA) NEGATIVE mg/dL (NEGATIVE) 10/22/16 08:45 Urine Ketones NEGATIVE mg/dL (NEGATIVE) 10/22/16 08:45 Urine Occult Blood NEGATIVE (NEGATIVE) 10/22/16 08:45 Urine Nitrite NEGATIVE (NEGATIVE) 10/22/16 08:45 Urine Bilirubin NEGATIVE (NEGATIVE) 10/22/16 08:45 Urine Urobilinogen 0.2 (NORMAL) E.U./dL (NORMAL) 10/22/16 08:45 Ur Leukocyte Esterase NEGATIVE (NEGATIVE) 10/22/16 08:45 Urine RBC 0-5 /HPF (0-5) 10/22/16 08:45 Urine WBC 0-3 /HPF (0-5) 10/22/16 08:45 Ur Squamous Epith Cells MOD Squamous (<= Few) H 10/22/16 08:45 Urine Bacteria Rare /HPF (None Seen) 10/22/16 08:45 Urine Culture Comments NOT INDICATED 10/22/16 08:45 Blood Type A POSITIVE 10/25/16 11:06 Antibody Screen NEGATIVE 10/25/16 11:06 Crossmatch IS Only See Detail 10/25/16 11:06
[2016-10-27] MEDS: ACETAMINOPHEN 325 MG TABLET PO PRN (16:10)
[2016-10-27] MEDS: PRAVASTATIN 40 MG TABLET PO SCH (20:05)
[2016-10-27] MEDS: amLODIPine 5 MG TABLET PO SCH (20:23)
[2016-10-28] MEDS: BENZOCAINE/MENTHOL LOZENGE MM PRN (00:09)
[2016-10-28] MEDS: oxyCODONE 5 MG TABLET PO PRN ×3 (00:10→10:23)
[2016-10-28] MEDS: ACETAMINOPHEN 325 MG TABLET PO PRN ×2 (00:54→06:03)
[2016-10-28 05:53] LABS: HCT - HEMATOCRIT 32.3 % (37.0-47.0); HGB - HEMOGLOBIN 10.2 g/dL (12.0-16.0); MEAN CORPUSCULAR HEMOGLOBIN 28.9 pg (27.0-31.0); MEAN CORPUSCULAR HGB CONC 31.7 g/dL (32.0-36.0); MEAN CORPUSCULAR VOLUME 91.1 fL (81.0-99.0); MEAN PLATELET VOLUME 9.5 fL (7.9-10.8); RED BLOOD COUNT 3.54 10^6/uL (4.20-5.40); RED CELL DISTRIBUTION WIDTH 16.9 % (12.0-15.0); WHITE BLOOD COUNT 18.8 x10^3/uL (4.8-10.8)
[2016-10-28] MEDS: SODIUM CHLORIDE FLUSH 0.9% 10 ML SYRINGE IVP SCH (06:00)
[2016-10-28 06:09] LABS: ALBUMIN/GLOBULIN RATIO 0.8 (1.0-2.2); BILIRUBIN,TOTAL 1.3 mg/dL (0.2-1.0); BUN - BLOOD UREA NITROGEN 35 mg/dL (6-20); CALCIUM 8.8 mg/dL (8.5-10.3); CARBON DIOXIDE - CO2 27 mmol/L (21-32); CHLORIDE 105 mmol/L (101-111); CREATININE 1.5 mg/dL (0.4-1.0); GFR - MDRD 33 (>89); GLUCOSE 140 mg/dL (70-100); MAGNESIUM 1.7 mg/dL (1.7-2.8); PHOSPHORUS 3.5 mg/dL (2.5-4.6); POTASSIUM 4.3 mmol/L (3.5-5.0); SODIUM 139 mmol/L (135-145); TOTAL PROTEIN 5.9 g/dL (6.7-8.2)
[2016-10-28 07:33] VITALS: BP 121/74
[2016-10-28] MEDS: levoFLOXacin 250 MG TABLET PO SCH (09:05)
[2016-10-28] MEDS: ALLOPURINOL 100 MG TABLET PO SCH (09:05)
[2016-10-28] MEDS: NYSTATIN 500000 UNITS/5 ML UDC PO SCH (09:05)
[2016-10-28] MEDS: MAGNESIUM OXIDE 400 MG TABLET PO SCH (09:05)
[2016-10-28] MEDS: guaiFENesin 600 MG TABLET PO SCH (09:05)
[2016-10-28] MEDS: METOPROLOL SUCCINATE 50 MG TABLET PO SCH (09:05)
[2016-10-28] MEDS: POTASSIUM CHLORIDE 20 MEQ TABLET PO SCH (09:05)
[2016-10-28] MEDS: SACCHAROMYCES BOULARDII 250 MG CAPSULE PO SCH (09:06)
[2016-10-28] MEDS: INSULIN GLARGINE 300 UNIT/3 ML PEN SUBQ SCH (09:09)
[2016-10-28] MEDS: INSULIN ASPART 300 UNIT/3 ML PEN SUBQ SCH (09:10)
[2016-10-28] MEDS: PANTOPRAZOLE 40 MG VIAL IVP SCH (09:12)
[2016-10-28] MEDS: POLYETHYLENE GLYCOL 3350 17 GM PACKET PO SCH (09:13)
--- NOTE | 2016-10-28 11:19 | Discharge Plan ---
Discharge Plan Disposition: Home, Self Care Prescriptions: Ipratropium/Albuterol [Duoneb] 3 ml INH RTQID PRN #120 neb PRN Reason: Wheezing Loperamide [Imodium] 2 mg PO Q4H PRN #15 capsule PRN Reason: Diarrhea Polyethylene Glycol 3350 [Miralax] 17 gm PO DAILY PRN #1 packet PRN Reason: Constipation Nystatin 5 ml PO QID #1 oral.susp oxyCODONE [Roxicodone] 5 mg PO Q4H #30 tablet Benzonatate [Tessalon] 100 mg PO TID PRN #30 capsule PRN Reason: Cough Acetaminophen [Tylenol] 1,000 mg PO Q6H PRN #60 tablet PRN Reason: Pain 1 to 4 Diet: Diabetic Activity Restrictions: Activity as Tolerated Shower Restrictions: Yes (suggest shower chair) Driving Restrictions: Yes (no driving) Assistance Devices: Walker Weight Bearing: Full Weight Instruction Topics: Benzonatate capsules, Ipratropium solution for inhalation Additional Instructions or Follow Up instructions: You initially presented to the hospital with shortness of breath and you were found to have a pneumonia and an exacerbation of your COPD. You had a lot of coughing during the hospitalization and because you were on plavix, aspirin and coumadin all of which thin your blood you ended bleeding and having a hematoma in the abdominal muscles on the right side. You required a blood transfusion with which your blood count improved and your plavix, aspirin and coumadin were stopped. After this the bleeding stopped and your blood count has been stable for several days now. You completed treatment for your pneumonia while you were here. We stopped the steroid due to the bleeding and you do not require oxygen to go home with. You continue to have a lot of pain in your abdomen in the area where you had this hematoma and therefore we are prescribing you pain medication. Please follow up with Dr. Coyle in the next few days. You may need additional pain medications. Rest for the next few days while your abdominal muscles heal. You will need to follow up with Dr Coyle regarding a mass that we saw on your CT scan in your lungs. You will also need to follow up with him in regards to when or if to restart your blood thinners. No Smoking: If you smoke, Please STOP! Call for help. Follow-up with: Taj Coyle MD [Primary Care Provider] - 1 Week
[2016-10-28] MEDS ORDERED: HYDROmorphone 1 MG/ML SYRINGE IM ONE ×2 (12:00→13:30)
--- NOTE | 2016-10-29 07:48 | DISCHARGE SUMMARY ---
DATE OF ADMISSION: 10/18/2016 DATE OF DISCHARGE: 10/28/2016 DISCHARGING PHYSICIAN: Abel Hernandez MD DISCHARGE DIAGNOSES 1. Acute blood loss anemia secondary to hematoma. 2. Rectus sheath hematoma. 3. Acute kidney injury. 4. Community-acquired pneumonia. 5. Chronic obstructive pulmonary disease exacerbation. 6. Chest pain. 7. Diabetes. 8. History of pulmonary embolism. 9. Hypertension. 10. Hyperlipidemia. 11. Chronic back pain. 12. Lung mass. 13. Hypomagnesemia. DISCHARGE MEDICATIONS 1. Venlafaxine 37.5 mg p.o. t.i.d. 2. Docusate sodium 100 mg p.o. b.i.d. p.r.n. for constipation. 3. Lantus 15 units subcutaneously q.p.m. 4. Amlodipine 2.5 mg p.o. daily. 5. Pravastatin 40 mg p.o. q.p.m. 6. Potassium chloride 20 mEq p.o. b.i.d. 7. Protonix 40 mg p.o. daily. 8. Januvia 50 mg p.o. daily. 9. Toprol-XL 50 mg p.o. b.i.d. 10. Lisinopril 5 mg p.o. daily. 11. Furosemide 40 mg p.o. daily. 12. Allopurinol 150 mg p.o. daily. 13. ProAir HFA inhaler 8.5 grams inhaled q.6 hours p.r.n. for dyspnea or wheezing. 14. Oxycodone 5 mg p.o. q.4 hours p.r.n. for pain. 15. MiraLax 17 grams p.o. daily p.r.n. for constipation. 16. Nystatin 5 mL p.o. q.i.d. 17. Imodium 2 mg p.o. q.4h. p.r.n. for diarrhea, do not exceed 16 mg a day. 18. DuoNeb 3 mL inhaled q.i.d. p.r.n. for dyspnea or wheezing. 19. Tessalon Perles 100 mg p.o. t.i.d. p.r.n. for cough. 20. Tylenol 1000 mg p.o. q.6 hours p.r.n. for pain. HOSPITAL COURSE: The patient is a very pleasant 81-year-old female with a past medical history signif icant for obesity, diabetes, coronary artery disease status post 3-vessel bypass just over a year ago in May 2015, history of pulmonary embolism and DVT with IVC filter on Coumadin, history of a astudillo bdural hematoma, history of breast cancer, spinal stenosis with chronic back pain, hypertension, hype rlipidemia, and a history of TIAs with memory impairment, osteoarthritis, and gout, who presented to the emergency department with a chief complaint of shortness of air. The patient was found to be tach ycardic on presentation and was hypoxemic. The patient was having audible wheezing, had very tight jase ngs with coarse rhonchi. [facility] which [facility] not provide much improvement of her shortness of air, her O2 saturations were in the lo w 90s. Initially, her chest x-ray did not reveal acute infiltrate; however, she did have a leukocytos is of 13.9 and appeared clinically to have a pneumonia. Therefore, she was admitted for community-acquired pneumonia and chronic obstructive pulmonary diseas e. The patient did have a CT of her chest done on the second day of hospitalization, which did show a 3 cm mass or consolidation at the right apex. This was concerning for pneumonia, but also could be m alignant and a followup CT scan versus a PET CT was recommended. Given the patient's clinical present ation, we treated this as pneumonia. She was also treated for COPD exacerbation with steroids, DuoNeb s, and oxygen. The patient had severe coughing spells during her hospitalization and was placed on Mu cinex and Tessalon Perles. The patient began to complain of right-sided chest pain and pain under her right ribs and into her flank. Initially, she was worked up for cardiac chest pain and underwent tro ponins and EKG. These tests were all negative. The patient was going to be discharged on 10/21/2016 w ith oral antibiotics and steroids to treat the pneumonia and COPD; however, when she was ambulated sh e became very dizzy and her heart rate went into the 120s. Therefore, discharge was held. Over the next 2 days, the patient continued to complain of this right lower rib cage/flank pain and s he continued to have dizziness with standing. The patient also had a slight drop in her blood pressur e and continued to be tachycardic. The patient's lab work over the next few days revealed a drop in h er hemoglobin from 11.6 initially, down to 9.4, then down to 8.7, and then down to 8.3. It was initia eddiey thought that the patient was having a GI bleed, we sent for stool guaiac; however, this was negat jen. Eventually the patient began to have bruising over that right flank area where she was having he r pain; therefore, we initially sent her for ultrasound of her abdomen which did not reveal any hemat neida, and then sent her for a CT of the abdomen and pelvis which revealed a large hematoma originating in the right abdominal rectus muscle with extension into the right lateral abdominal wall and subcut aneous soft tissue with some cholelithiasis. Prior to this, patient's Plavix and aspirin were stopped . Given that she was having this hematoma and this drop in her hemoglobin, we did also stop her Couma din as she did have an IVC filter due to a previous subdural hematoma. The patient was also initially put on IV Protonix for possible GI bleed; however, when we found this was a hematoma, the Protonix w as stopped. The patient's prednisone was also stopped due to the possibility of a GI bleed. The patie nt was transfused 2 units of packed RBCs, given that she was having symptomatic anemia and had had an acute blood loss. The patient's hemoglobin improved to 10.8 after transfusion and remained stable fo r the next 2 days. The patient also did develop a leukocytosis up to 22,000. This improved slightly d own to 18.8 by the time of discharge. The patient did have repeat UA and this was negative. We could not find any other source of infection. It was thought that this was likely a reactive leukocytosis s econdary to this hematoma. The patient did not spike fevers, it did not appear that she had an infect ed hematoma. The patient continued to have significant pain secondary to the hematoma, for which she was prescribed pain medication at discharge. The patient was seen again by Physical Therapy and was able to ambulate; however, was restricted seco ndary to her pain. The patient also was tested for O2 at the time of discharge and she was saturating above 88% with exertion; therefore, did not qualify for oxygen. Patient was given a home nebulizer m achine needed for administration of bronchodilators due to her COPD. The patient was discharged in guarded condition. She will follow up with Dr. Coyle, her PCP, in the ne xt few days, to ensure that this hematoma is continuing to resolve. I would also recommend that she g et a repeat CBC when she is seen by Dr. Coyle. The patient also was given a prescription for pain medi cation, but may require further pain medication given the severity of her pain. She was told to rest for the next few days to allow for her hematoma to heal. The patient also needs to follow up for this finding of possible mass on her CT scan, with a repeat CT within the next few weeks and/or a PET sca n. The patient was discharged home with her , who helps to take care of the patient. Patient completed her course of antibiotics while she was hospitalized for her pneumonia. We did not restart her steroids, but her respiratory status seemed to be stable at the time of discharge down. PHYSICAL EXAMINATION AT DISCHARGE VITAL SIGNS: Temperature 36.6, heart rate 90, blood pressure 121/74, respiratory rate 14, O2 saturati on 95% on room air. GENERAL: The patient is alert, able to answer my questions appropriately. She is in some mild distres s secondary to pain in the right flank and upper right abdomen and lower rib cage area. The patient s tates the pain is worse when she moves or ambulates. Otherwise, patient is not in any respiratory dis tress. HEENT: Pupils are equal and reactive to light. Extraocular muscles are intact. Mucous membranes are m oist. There is no conjunctival pallor or scleral icterus noted. NECK: Supple. No thyromegaly. No JVD. Trachea is midline. LYMPH NODES: There is no cervical or axillary lymphadenopathy noted. CARDIOVASCULAR: S1, S2, regular rate and rhythm. No murmurs, rubs, or gallops. LUNGS: There are some mild scattered wheezes. Otherwise, no rhonchi. The patient is not in any respir atory distress, is not using any accessory muscles of breathing, but she does take shallow breaths be cause of the pain from deep breaths in the area of the hematoma. ABDOMEN: Soft. It is tender and swollen in the area of the right flank and right upper quadrant of th e abdomen. There is some firmness, the hematoma is palpable but has decreased in size since it was in itially found. The patient otherwise has good bowel sounds. There is no guarding, no peritoneal signs . EXTREMITIES: The patient has mild lower extremity edema. Peripheral pulses are palpable. There is no cyanosis or clubbing. MUSCULOSKELETAL: The patient has good range of motion. No joint tenderness, no joint effusions. SKIN: Large discoloration hematoma in the right flank and right upper quadrant of the abdomen. Otherw ise, no other rashes, lesions, cellulitis, or abscesses. NEUROLOGIC: Patient is alert, oriented x3. Cranial nerves 2 through 12 grossly intact. Strength is gr ossly normal. Sensations are intact. LABORATORY: WBC is 18.8, hemoglobin 10.2, hematocrit 32.3, platelet count 358. INR 1.3. Sodium 139, p otassium 4.3, chloride 105, carbon dioxide 27, BUN 35, creatinine 1.5, glucose 140, calcium 8.8, magn esium 1.7. Total bilirubin 1.3, AST 18, ALT 17, alkaline phosphatase 55, albumin 2.7. UA negative. IMAGING Chest x-ray 10/17/2016. Impression: Stable cardiomegaly, no acute pulmonary findings. CT chest. Impression: 1. There is a 3 cm mass or consolidation at the right apex. This could represent pneumonia, but coul d also be malignant. Consider CT followup versus PET/CT or biopsy, depending on the clinical scenario . 2. Normal to upper normal-sized mediastinal lymph nodes. Chest x-ray 10/21/2016. Impression: Subtle opacities in the left lung base can be seen in the setting of atelectasis, aspiration, or infectious process. Abdominal ultrasound. Impression: Cholelithiasis without evidence of acute cholecystitis or biliary o bstruction. CT abdomen/pelvis. Impression: 1. Large hematoma originating in the right abdominal rectus muscle with extension into the right lat eral abdominal wall and subcutaneous soft tissue. Please note that occasionally a hemorrhagic maligna ncy such as sarcoma can present similarly. 2. Mild cardiomegaly, chronic lung disease. 3. Cholelithiasis. 4. Right renal lithiasis. No obstructive uropathy. 5. Colonic diverticulitis. 6. IVC filter. FOLLOWUP/RECOMMENDATIONS: The patient is recommended to follow up with her primary care physician, Dr Jonnie Coyle, in the next few days. Patient initially presented for pneumonia and COPD exacerbation. She wa s treated fully for her pneumonia with antibiotics during the hospitalization. She was also treated f or COPD with nebulizers and steroids. These issues have resolved prior to discharge. The patient was given a nebulizer for DuoNebs at discharge. The patient, however, did develop a large hematoma in the abdominal rectus muscle. The patient's Plavix, aspirin, and Coumadin have been stopped. She does hav e an IVC filter. The patient will need to follow up to decide when to restart these medications or if she needs to restart these medications. The patient's hematoma seems to be slowly resolving and her hemoglobin has remained stable. The patient will need a repeat CT when she follows up. Also, patient was found to was found to have a possible mass in the right apex of her lungs. This also needs furthe r followup with repeat CT and possibly a PET scan. The patient was prescribed medication for pain con trol with oxycodone and Tylenol, as she was continuing to have severe pain due to the hematoma. The p atient will follow up with her PCP as soon as she is able to get an appointment in the next couple of days. She is going home with her . She was able to ambulate with standby assist and was able to walk 10 feet without desaturating; therefore, she does not need oxygen at discharge. TIME SPENT ON DISCHARGE: Greater than 30 minutes was spent on discharge. JOB #: [id number] EXT JOB #:[id number]
--- NOTE | 2016-10-29 16:03 | DISCHARGE SUMMARY ---
DATE OF ADMISSION: 10/18/2016 DATE OF DISCHARGE: 10/28/2016 Patient was being evaluated for discharge and getting oxygen saturation when she had a normal oxygen sitting, resting at 94; when she went to stand up, she got sudden flushing, sweating, and felt very u neasy. She had a blood sugar done that was 178, blood pressure was not measured at that time. The pat jessica then was told to sit down, and the respiratory therapist came back about 1-1/2 hours later, trie d to stand, had the same thing happen again. The patient then had orthostatics done, and her systolic blood pressure sitting went from 129 to 109 when she was standing. The patient does have a medicatio n regimen, which front-loads the morning blood pressure medicines with amlodipine 2.5, lisinopril 5 m g, and metoprolol succinate 50 mg in the a.m., she takes another 50 at night of the metoprolol succin ate. Review by this physician of her medications showed that at times she has 15-20 points' difference an hour or 2 after her medication administration, both in the morning and evening, and lower blood press ure systolically than she does at other times. Therefore, the medications were changed, and she will be on lisinopril and metoprolol in the morning and amlodipine and metoprolol at night. She also takes furosemide in the morning, which may contribute to this in the morning. Therefore the patient is not to get her metoprolol tonight, but just the amlodipine, and then tomorrow we will start the new liset men as stated above. Therefore the patient's discharge is canceled. The patient and her are b oth explained the reason for this and the reason to watch her another day. This will give an opportun ity for her to be reevaluated tomorrow and be sure that she can have a safe discharge. JOB #: [id number] EXT JOB #:[id number]
== END 2016-10-28 13:40 | disposition home health service (06) | DRG 190 ==
LOC: ED 22:02 → MS 10-18 02:31
PROVIDERS: ADMIT Internal Medicine; ATTEND Internal Medicine
PROC: 30233N1 Transfusion of Nonautologous Red Blood Cells into Peripheral Vein, Percutaneous Approach (ICD-10-PCS; principal; 2016-10-25)
DX: J44.0 Chronic obstructive pulmonary disease with (acute) lower respiratory infection (principal); J45.909 Unspecified asthma, uncomplicated; J18.9 Pneumonia, unspecified organism; E11.9 Type 2 diabetes mellitus without complications; D62 Acute posthemorrhagic anemia; N17.9 Acute kidney failure, unspecified; M79.81 Nontraumatic hematoma of soft tissue; J44.1 Chronic obstructive pulmonary disease with (acute) exacerbation; E11.65 Type 2 diabetes mellitus with hyperglycemia; I10 Essential (primary) hypertension; E78.5 Hyperlipidemia, unspecified; M48.00 Spinal stenosis, site unspecified; G89.29 Other chronic pain; E83.42 Hypomagnesemia; S22.42XG Multiple fractures of ribs, left side, subsequent encounter for fracture with delayed healing; R09.02 Hypoxemia; E66.9 Obesity, unspecified; I25.10 Atherosclerotic heart disease of native coronary artery without angina pectoris; F32.9 Major depressive disorder, single episode, unspecified; M10.9 Gout, unspecified; Z68.30 Body mass index [BMI] 30.0-30.9, adult; Z91.81 History of falling; Z86.73 Personal history of transient ischemic attack (TIA), and cerebral infarction without residual deficits; Z86.718 Personal history of other venous thrombosis and embolism; Z86.711 Personal history of pulmonary embolism; Z79.01 Long term (current) use of anticoagulants; Z85.3 Personal history of malignant neoplasm of breast; Z95.1 Presence of aortocoronary bypass graft; Z87.891 Personal history of nicotine dependence; Z79.4 Long term (current) use of insulin; Z79.82 Long term (current) use of aspirin; Z79.02 Long term (current) use of antithrombotics/antiplatelets; Z95.828 Presence of other vascular implants and grafts
CPT/HCPCS: 36415; 71020; 71250; 74176; 76700; 80048; 80053; 81001; 82270; 82607; 82728; 82746; 83036; 83540; 83690; 83735; 83880; 84100; 84466; 85025; 85520; 85610; 85730; 86850; 86900; 86901; 86920; 87086; 93005; 93010; 94640; 96374; 99284; 99285

== ENCOUNTER 2016-11-06 10:26 | Outpatient (CLI) | payer MEDICARE, OTHER ==
[2016-11-06 10:36] LABS: BASOPHILS # (AUTO) 0.1 10^3/uL (0.0-0.1); BASOPHILS % (AUTO) 1.4 %; EOSINOPHILS # (AUTO) 0.4 10^3/uL (0.0-0.7); EOSINOPHILS % (AUTO) 3.7 %; HGB - HEMOGLOBIN 11.2 g/dL (12.0-16.0); LYMPHOCYTES # (AUTO) 0.9 10^3/uL (1.5-3.5); LYMPHOCYTES % (AUTO) 9.3 %; MEAN CORPUSCULAR HEMOGLOBIN 30.2 pg (27.0-31.0); MEAN CORPUSCULAR VOLUME 91.6 fL (81.0-99.0); MEAN PLATELET VOLUME 8.7 fL (7.9-10.8); MONOCYTES # (AUTO) 0.6 10^3/uL (0.0-1.0); MONOCYTES % (AUTO) 5.7 %; NEUTROPHILS # (AUTO) 7.9 10^3/uL (1.5-6.6); NEUTROPHILS % (AUTO) 79.9 %; NUCLEATED RED BLOOD CELLS AUTO 0.2 /100WBC; RED BLOOD COUNT 3.71 10^6/uL (4.20-5.40); RED CELL DISTRIBUTION WIDTH 17.2 % (12.0-15.0); UNCORRECTED WHITE BLOOD COUNT 9.9 x10^3/uL; WHITE BLOOD COUNT 9.9 x10^3/uL (4.8-10.8)
== END 2016-11-06 10:27 | disposition home or self-care (01) ==
LOC: LAB 10:26
PROVIDERS: ATTEND Internal Medicine
DX: D64.9 Anemia, unspecified (principal)
CPT/HCPCS: 36415; 85025

== ENCOUNTER 2016-11-28 11:24 | Outpatient (CLI) | payer MEDICARE, OTHER | END 2016-11-28 11:25 | disposition home or self-care (01) | LOC: LAB.F 11:24 | PROVIDERS: ATTEND Internal Medicine | DX: I82.509 Chronic embolism and thrombosis of unspecified deep veins of unspecified lower extremity (principal); Z79.01 Long term (current) use of anticoagulants | CPT/HCPCS: 85610 ==

== ENCOUNTER 2016-12-12 11:18 | Outpatient (CLI) | payer MEDICARE, OTHER | END 2016-12-12 11:19 | disposition home or self-care (01) | LOC: LAB.F 11:18 | PROVIDERS: ATTEND Internal Medicine | DX: I82.509 Chronic embolism and thrombosis of unspecified deep veins of unspecified lower extremity (principal); Z79.01 Long term (current) use of anticoagulants | CPT/HCPCS: 85610 ==

== ENCOUNTER 2016-12-25 11:03 | Outpatient (CLI) | payer MEDICARE, OTHER | END 2016-12-25 11:04 | disposition home or self-care (01) | LOC: LAB.F 11:03 | PROVIDERS: ATTEND Internal Medicine | DX: I82.509 Chronic embolism and thrombosis of unspecified deep veins of unspecified lower extremity (principal); Z79.01 Long term (current) use of anticoagulants | CPT/HCPCS: 85610 ==

== ENCOUNTER 2017-02-12 14:01 | Outpatient (CLI) | payer MEDICARE, OTHER | END 2017-02-12 14:02 | disposition home or self-care (01) | LOC: LAB.F 14:01 | PROVIDERS: ATTEND Internal Medicine | DX: I82.509 Chronic embolism and thrombosis of unspecified deep veins of unspecified lower extremity (principal); Z79.01 Long term (current) use of anticoagulants | CPT/HCPCS: 85610 ==

== ENCOUNTER 2017-02-27 17:00 | Outpatient (CLI) | payer MEDICARE, OTHER ==
--- NOTE | 2017-02-27 19:48 | XRAY Preliminary Report ---
Exam: XR Hip w/Pelvis 2-3V RT IMPRESSION: Mild degenerative changes. RADIA The above findings were discussed with Kamla ALBRIGHT by Dr. Ron Katz at 19:47 hrs on 02/27/17 . SITE ID: [id number]
--- NOTE | 2017-02-27 19:49 | XRAY Preliminary Report ---
Exam: XR Lumbar Spine 2 View IMPRESSION: Mild scoliosis with multilevel degenerative joint and disk disease. RADIA The above findings were discussed with Kamla LABRIGHT by Dr. Ron Katz at 19:47 hrs on 02/27/17 . SITE ID: [id number]
--- NOTE | 2017-02-27 19:51 | XRAY Report ---
EXAM: STERNOCLAVICULAR JOINT RADIOGRAPHY EXAM DATE: 02/27/2017 06:43 PM. CLINICAL HISTORY: Pain. COMPARISON: None. TECHNIQUE: 3 views. FINDINGS: Bones: Osteopenia. No definite fracture or other bone lesion. Status post median sternotomy. Joints: Unremarkable SC joints. Soft Tissues: Surgical clips in right axilla. Carotid calcifications. IMPRESSION: 1. Carotid calcifications; if not previously evaluated, follow-up carotid duplex ultrasound may be he lpful. 2. Other chronic findings; unremarkable SC joints. RADIA The call report notification system was initiated by Dr. Ron Katz at 19:39 hrs on 02/27/17. The above findings were discussed with Kamla ALBRIGHT by Dr. Ron Katz at 19:47 hrs on 02/27/17 . Referring Provider Line: [phone] SITE ID: [id number]
--- NOTE | 2017-02-27 19:51 | XRAY Report ---
EXAM: RIGHT HIP AND PELVIS RADIOGRAPHY EXAM DATE: 02/27/2017 06:40 PM. HISTORY: HIP JOINT Pain, right. COMPARISONS: 10/23/2012. TECHNIQUE: 1 view of the pelvis and 1 view of the hip. FINDINGS: Bones: Normal. No fracture or bone lesion. Joints: Mild bilateral hip joint space narrowing with marginal lipping. Soft Tissues: Vascular calcifications. IMPRESSION: Mild degenerative changes. RADIA The above findings were discussed with Kamla ALBRIGHT by Dr. Ron Katz at 19:47 hrs on 02/27/17 . Referring Provider Line: [phone] SITE ID: [id number]
--- NOTE | 2017-02-27 19:52 | XRAY Report ---
EXAM: LUMBOSACRAL SPINE RADIOGRAPHY EXAM DATE: 02/27/2017 06:42 PM. CLINICAL HISTORY: CHRONIC LOW BACK PAIN LUMBAR SPINAL STENOSIS. COMPARISONS: None. TECHNIQUE: 3 views. Suboptimal penetration. FINDINGS: Alignment: Mild scoliosis. No listhesis. Bones: 5 lumbar vertebrae. No fractures or bone lesions. Disks: Disk space narrowing at all lumbar levels with vacuum phenomenon and other degenerative change s. Facets: Generalized degenerative changes. Sacroiliac Joints: Mild degenerative changes. Soft Tissues: Vascular calcifications. IVC filter. Nonspecific bowel gas pattern. IMPRESSION: Mild scoliosis with multilevel degenerative joint and disk disease. RADIA The above findings were discussed with Kamla ALBRIGHT by Dr. Ron Katz at 19:47 hrs on 02/27/17 . Referring Provider Line: [phone] SITE ID: [id number]
== END 2017-02-27 17:01 | disposition home or self-care (01) ==
LOC: DI 17:00
PROVIDERS: ATTEND Physician Assistant Medical
DX: M47.897 Other spondylosis, lumbosacral region (principal); M47.896 Other spondylosis, lumbar region; M51.37 Other intervertebral disc degeneration, lumbosacral region; M51.36 Other intervertebral disc degeneration, lumbar region; M41.9 Scoliosis, unspecified; I65.29 Occlusion and stenosis of unspecified carotid artery; M85.80 Other specified disorders of bone density and structure, unspecified site; M16.0 Bilateral primary osteoarthritis of hip
CPT/HCPCS: 71130; 72100

== ENCOUNTER 2017-03-03 13:30 | Outpatient (CLI) | payer MEDICARE, OTHER | END 2017-03-03 13:31 | disposition home or self-care (01) | LOC: LAB.F 13:30 | PROVIDERS: ATTEND Internal Medicine | DX: I82.509 Chronic embolism and thrombosis of unspecified deep veins of unspecified lower extremity (principal); Z79.01 Long term (current) use of anticoagulants | CPT/HCPCS: 85610 ==

== ENCOUNTER 2017-03-24 11:25 | Outpatient (CLI) | payer MEDICARE, OTHER | END 2017-03-24 11:26 | disposition home or self-care (01) | LOC: LAB.F 11:25 | PROVIDERS: ATTEND Internal Medicine | DX: I82.509 Chronic embolism and thrombosis of unspecified deep veins of unspecified lower extremity (principal); Z79.01 Long term (current) use of anticoagulants | CPT/HCPCS: 85610 ==

== ENCOUNTER 2017-04-23 14:49 | Outpatient (CLI) | payer MEDICARE, OTHER ==
--- NOTE | 2017-04-24 11:00 | XRAY Report ---
THREE-VIEW LEFT FOURTH FINGER: 04/23/2017 CLINICAL INDICATION: Fall, pain. FINDINGS: AP, lateral, oblique views of the left 4th finger demonstrate severe interphalangeal joint arthritis, with osseous fusion of the distal interphalangeal joint. There is no evidence of acute f racture or dislocation. No radiopaque foreign body is seen in the soft tissues. IMPRESSION: SEVERE OSTEOARTHRITIS. NO EVIDENCE OF ACUTE FRACTURE. JOB #: [id number] EXT JOB #:[id number]
== END 2017-04-23 14:50 | disposition home or self-care (01) ==
LOC: DI 14:49
PROVIDERS: ATTEND Internal Medicine
DX: M19.042 Primary osteoarthritis, left hand (principal)
CPT/HCPCS: 73140

== ENCOUNTER 2017-05-27 08:43 | Outpatient (CLI) | payer MEDICARE, OTHER ==
[2017-05-27 18:23] LABS: BASOPHILS # (AUTO) 0.1 10^3/uL (0.0-0.1); BASOPHILS % (AUTO) 0.9 %; EOSINOPHILS # (AUTO) 0.4 10^3/uL (0.0-0.7); EOSINOPHILS % (AUTO) 4.5 %; HCT - HEMATOCRIT 37.3 % (37.0-47.0); HGB - HEMOGLOBIN 11.8 g/dL (12.0-16.0); LYMPHOCYTES # (AUTO) 1.2 10^3/uL (1.5-3.5); LYMPHOCYTES % (AUTO) 14.9 %; MEAN CORPUSCULAR HEMOGLOBIN 30.5 pg (27.0-31.0); MEAN CORPUSCULAR HGB CONC 31.5 g/dL (32.0-36.0); MEAN CORPUSCULAR VOLUME 96.9 fL (81.0-99.0); MEAN PLATELET VOLUME 9.9 fL (7.9-10.8); MONOCYTES # (AUTO) 0.6 10^3/uL (0.0-1.0); MONOCYTES % (AUTO) 7.7 %; NEUTROPHILS # (AUTO) 5.8 10^3/uL (1.5-6.6); NUCLEATED RED BLOOD CELLS AUTO 0.3 /100WBC; RED BLOOD COUNT 3.85 10^6/uL (4.20-5.40); RED CELL DISTRIBUTION WIDTH 15.3 % (12.0-15.0); UNCORRECTED WHITE BLOOD COUNT 8.1 x10^3/uL; WHITE BLOOD COUNT 8.1 x10^3/uL (4.8-10.8)
[2017-05-27 18:26] LABS: HEMOGLOBIN A1C 0.61 g/dL
[2017-05-27 18:29] LABS: ALBUMIN/GLOBULIN RATIO 0.9 (1.0-2.2); BILIRUBIN,TOTAL 0.5 mg/dL (0.2-1.0); BUN - BLOOD UREA NITROGEN 19 mg/dL (6-20); CALCIUM 9.2 mg/dL (8.5-10.3); CARBON DIOXIDE - CO2 28 mmol/L (21-32); CHLORIDE 100 mmol/L (101-111); CHOL/HDL RATIO 4.1 (<4.4); CHOLESTEROL 180 mg/dL; CREATININE 1.1 mg/dL (0.4-1.0); GFR - MDRD 48 (>89); GLUCOSE 115 mg/dL (70-100); HDL CHOLESTEROL 44 mg/dL; LDL/HDL RATIO 1.8 (<4.4); POTASSIUM 3.7 mmol/L (3.5-5.0); SODIUM 140 mmol/L (135-145); TOTAL PROTEIN 7.1 g/dL (6.7-8.2); TRIGLYCERIDES 280 mg/dL; URIC ACID 6.2 mg/dL (2.6-7.2); VLDL CHOLESTEROL 56 mg/dL
== END 2017-05-27 08:44 | disposition home or self-care (01) ==
LOC: LAB.F 08:43
PROVIDERS: ATTEND Internal Medicine
DX: I82.509 Chronic embolism and thrombosis of unspecified deep veins of unspecified lower extremity (principal); Z79.01 Long term (current) use of anticoagulants; E11.49 Type 2 diabetes mellitus with other diabetic neurological complication; I10 Essential (primary) hypertension; D68.59 Other primary thrombophilia; E78.5 Hyperlipidemia, unspecified; I25.10 Atherosclerotic heart disease of native coronary artery without angina pectoris; M10.9 Gout, unspecified; Z79.899 Other long term (current) drug therapy
CPT/HCPCS: 36415; 80053; 80061; 83036; 84443; 84550; 85025; 85610

== ENCOUNTER 2017-06-25 08:00 | Outpatient (CLI) | payer MEDICARE, OTHER | END 2017-06-25 08:01 | disposition home or self-care (01) | LOC: LAB.F 08:00 | PROVIDERS: ATTEND Internal Medicine | DX: I82.509 Chronic embolism and thrombosis of unspecified deep veins of unspecified lower extremity (principal); Z79.01 Long term (current) use of anticoagulants | CPT/HCPCS: 85610 ==

== ENCOUNTER 2017-07-03 10:59 | Outpatient (CLI) | payer MEDICARE, OTHER | END 2017-07-03 11:00 | disposition home or self-care (01) | LOC: LAB.F 10:59 | PROVIDERS: ATTEND Internal Medicine | DX: I82.509 Chronic embolism and thrombosis of unspecified deep veins of unspecified lower extremity (principal); Z79.01 Long term (current) use of anticoagulants | CPT/HCPCS: 85610 ==

== ENCOUNTER 2017-07-17 11:23 | Outpatient (CLI) | payer MEDICARE, OTHER | END 2017-07-17 11:24 | disposition home or self-care (01) | LOC: LAB.F 11:23 | PROVIDERS: ATTEND Internal Medicine | DX: I82.509 Chronic embolism and thrombosis of unspecified deep veins of unspecified lower extremity (principal); Z79.01 Long term (current) use of anticoagulants | CPT/HCPCS: 85610 ==

== ENCOUNTER 2017-08-07 09:18 | Outpatient (CLI) | payer MEDICARE, OTHER | END 2017-08-07 09:19 | disposition home or self-care (01) | LOC: LAB.F 09:18 | PROVIDERS: ATTEND Internal Medicine | DX: I82.509 Chronic embolism and thrombosis of unspecified deep veins of unspecified lower extremity (principal); Z79.01 Long term (current) use of anticoagulants | CPT/HCPCS: 85610 ==

== ENCOUNTER 2017-08-21 11:21 | Outpatient (CLI) | payer MEDICARE, OTHER | END 2017-08-21 11:22 | disposition home or self-care (01) | LOC: LAB.F 11:21 | PROVIDERS: ATTEND Internal Medicine | DX: I82.509 Chronic embolism and thrombosis of unspecified deep veins of unspecified lower extremity (principal); Z79.01 Long term (current) use of anticoagulants | CPT/HCPCS: 85610 ==

== ENCOUNTER 2017-09-01 09:15 | Outpatient (CLI) | payer MEDICARE, OTHER | END 2017-09-01 09:16 | disposition home or self-care (01) | LOC: LAB.F 09:15 | PROVIDERS: ATTEND Internal Medicine | DX: I82.509 Chronic embolism and thrombosis of unspecified deep veins of unspecified lower extremity (principal); Z79.01 Long term (current) use of anticoagulants | CPT/HCPCS: 85610 ==

== ENCOUNTER 2017-09-03 11:32 | Outpatient (CLI) | payer MEDICARE, OTHER ==
--- NOTE | 2017-09-04 13:22 | Mammography Report ---
DIGITAL SCREENING MAMMOGRAM: 09/03/2017 CLINICAL INDICATION: An 82-year-old with personal history of left breast cancer, status post lumpectomy and radiation therapy and chemotherapy, family history of breast cancer. COMPARISON: 07/2016, 11/2014, 04/2014, 10/2013, 10/2011, 04/2011, 10/2010, 04/2010, 10/2009, 03/2009. TECHNIQUE: Routine CC and MLO projections were obtained of the breasts. FINDINGS: The breasts demonstrate heterogeneously dense fibroglandular parenchyma. Punctate, typically benign calcifications are present. Postoperative and post-treatment changes in the left breast are stable. No suspicious masses, clustered microcalcifications, or regions of architectural distortion are identified. IMPRESSION: BENIGN FINDINGS. RECOMMENDATION: Routine annual screening unless otherwise clinically indicated. BIRADS CATEGORY 2 - BENIGN FINDINGS. STANDARD QUALIFYING STATEMENTS: 1. This examination was reviewed with the aid of Computer-Aided Detection (CAD). 2. A negative or benign imaging report should not delay biopsy if clinically suspicious findings are present. Consider surgical consultation if warranted. More than 5% of cancers are not identified by imaging. 3. Dense breasts may obscure an underlying neoplasm. TD: 09/04/2017 13:21
== END 2017-09-03 11:33 | disposition home or self-care (01) ==
LOC: DI 11:32
PROVIDERS: ATTEND Internal Medicine
DX: Z12.31 Encounter for screening mammogram for malignant neoplasm of breast (principal); Z85.3 Personal history of malignant neoplasm of breast; Z80.3 Family history of malignant neoplasm of breast
CPT/HCPCS: 77067

== ENCOUNTER 2017-09-09 09:06 | Outpatient (CLI) | payer MEDICARE, OTHER | END 2017-09-09 09:07 | disposition home or self-care (01) | LOC: LAB.F 09:06 | PROVIDERS: ATTEND Internal Medicine | DX: I82.509 Chronic embolism and thrombosis of unspecified deep veins of unspecified lower extremity (principal); Z79.01 Long term (current) use of anticoagulants | CPT/HCPCS: 85610 ==

== ENCOUNTER 2017-10-09 08:00 | Outpatient (CLI) | payer MEDICARE, OTHER | END 2017-10-09 08:01 | disposition home or self-care (01) | LOC: LAB.F 08:00 | PROVIDERS: ATTEND Internal Medicine | DX: I82.509 Chronic embolism and thrombosis of unspecified deep veins of unspecified lower extremity (principal); Z79.01 Long term (current) use of anticoagulants | CPT/HCPCS: 85610 ==

== ENCOUNTER 2017-10-29 13:48 | Outpatient (CLI) | payer MEDICARE, OTHER | END 2017-10-29 13:49 | disposition home or self-care (01) | LOC: LAB.F 13:48 | PROVIDERS: ATTEND Internal Medicine | DX: I82.509 Chronic embolism and thrombosis of unspecified deep veins of unspecified lower extremity (principal); Z79.01 Long term (current) use of anticoagulants | CPT/HCPCS: 85610 ==

== ENCOUNTER 2017-11-19 11:12 | Outpatient (CLI) | payer MEDICARE, OTHER | END 2017-11-19 11:13 | disposition home or self-care (01) | LOC: LAB.F 11:12 | PROVIDERS: ATTEND Internal Medicine | DX: I82.509 Chronic embolism and thrombosis of unspecified deep veins of unspecified lower extremity (principal); Z79.01 Long term (current) use of anticoagulants | CPT/HCPCS: 85610 ==

== ENCOUNTER 2017-12-24 10:19 | Outpatient (CLI) | payer MEDICARE, OTHER | END 2017-12-24 10:20 | disposition home or self-care (01) | LOC: LAB.F 10:19 | PROVIDERS: ATTEND Internal Medicine | DX: I82.509 Chronic embolism and thrombosis of unspecified deep veins of unspecified lower extremity (principal); Z79.01 Long term (current) use of anticoagulants | CPT/HCPCS: 85610 ==

== ENCOUNTER 2017-12-31 10:48 | Outpatient (CLI) | payer MEDICARE, OTHER ==
[2017-12-31 11:17] LABS: INR 2.3 (0.8-1.2); PT - PROTHROMBIN TIME 25.5 secs (9.9-12.6)
[2017-12-31 13:30] LABS: HEMOGLOBIN A1C 0.76 g/dL; HEMOGLOBIN A1C % 7.1 % (4.6-6.2)
== END 2017-12-31 10:49 | disposition home or self-care (01) ==
LOC: LAB 10:48
PROVIDERS: ATTEND Internal Medicine
DX: E11.9 Type 2 diabetes mellitus without complications (principal); I82.509 Chronic embolism and thrombosis of unspecified deep veins of unspecified lower extremity; Z79.01 Long term (current) use of anticoagulants
CPT/HCPCS: 36415; 83036; 85610

== ENCOUNTER 2018-01-22 14:49 | Outpatient (CLI) | payer MEDICARE, OTHER | END 2018-01-22 14:50 | disposition home or self-care (01) | LOC: LAB.F 14:49 | PROVIDERS: ATTEND Internal Medicine | DX: I82.509 Chronic embolism and thrombosis of unspecified deep veins of unspecified lower extremity (principal); Z79.01 Long term (current) use of anticoagulants | CPT/HCPCS: 85610 ==

== ENCOUNTER 2018-02-04 11:27 | Outpatient (CLI) | payer MEDICARE, OTHER | END 2018-02-04 11:28 | disposition home or self-care (01) | LOC: LAB.F 11:27 | PROVIDERS: ATTEND Internal Medicine | DX: I82.509 Chronic embolism and thrombosis of unspecified deep veins of unspecified lower extremity (principal); Z79.01 Long term (current) use of anticoagulants | CPT/HCPCS: 85610 ==

== ENCOUNTER 2018-02-18 11:14 | Outpatient (CLI) | payer MEDICARE, OTHER | END 2018-02-18 11:15 | disposition home or self-care (01) | LOC: LAB.F 11:14 | PROVIDERS: ATTEND Internal Medicine | DX: Z79.01 Long term (current) use of anticoagulants (principal); I82.509 Chronic embolism and thrombosis of unspecified deep veins of unspecified lower extremity | CPT/HCPCS: 85610 ==

== ENCOUNTER 2018-03-11 10:28 | Outpatient (CLI) | payer MEDICARE, OTHER | END 2018-03-11 10:29 | disposition home or self-care (01) | LOC: LAB.F 10:28 | PROVIDERS: ATTEND Internal Medicine | DX: I82.509 Chronic embolism and thrombosis of unspecified deep veins of unspecified lower extremity (principal); Z79.01 Long term (current) use of anticoagulants | CPT/HCPCS: 85610 ==

== ENCOUNTER 2018-04-15 10:55 | Outpatient (CLI) | payer MEDICARE, OTHER | END 2018-04-15 10:56 | disposition home or self-care (01) | LOC: LAB.F 10:55 | PROVIDERS: ATTEND Internal Medicine | DX: I82.509 Chronic embolism and thrombosis of unspecified deep veins of unspecified lower extremity (principal); Z79.01 Long term (current) use of anticoagulants | CPT/HCPCS: 85610 ==

== ENCOUNTER 2018-05-06 11:16 | Outpatient (CLI) | payer MEDICARE, OTHER | END 2018-05-06 11:17 | disposition home or self-care (01) | LOC: LAB.F 11:16 | PROVIDERS: ATTEND Internal Medicine | DX: I82.509 Chronic embolism and thrombosis of unspecified deep veins of unspecified lower extremity (principal); Z79.01 Long term (current) use of anticoagulants | CPT/HCPCS: 85610 ==

== ENCOUNTER 2018-05-12 20:32 | Emergency (ER) | payer MEDICARE, OTHER ==
--- NOTE | 2018-05-12 21:18 | ED Physician Documentation ---
PD HPI DYSPNEA - Stated complaint Stated Complaint: COUGHING BLOOD - Chief complaint Chief Complaint: Resp - History obtained from History obtained from: Patient - History of Present Illness Timing - onset: Today Timing - details: Abrupt onset Pain level max: 0 Pain level now: 0 Worsened by: Coughing Associated symptoms: Cough, Hemoptysis. No: Fever, Wheezing, Chest pain / discomfort Recently seen: Not recently seen - Additional information Additional information: patient has had cough for "over a year" (per patient) but gradually worsening over past few weeks with mild dyspnea. Today she developed hemoptysis, which she has not had previously. Review of Systems Constitutional: denies: Fever, Chills, Fatigue, Sweats Cardiac: reports: Pedal edema (chronic). denies: Chest pain / pressure, Palpitations Respiratory: reports: Dyspnea, Cough, Hemoptysis. 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 HEENT: None Psych: Depression Musculoskeletal: Osteoarthritis, Gout, Fatigue, Chronic back pain Derm: None - Past Surgical History Past Surgical History: Yes Ortho: Knee replacement /SWITCH FOREMAN: 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 Cardiovascular: CABG - Present Medications Home Medications: Ambulatory Orders Medication Instructions Recorded Confirmed Albuterol Sulfate [Proair Hfa 8.5 gm IH Q6H PRN 11/16/12 12/17/17 Inhaler] Allopurinol [Zyloprim] 150 mg PO DAILY 11/16/12 12/17/17 Metoprolol Succinate [Toprol Xl] 50 mg PO BID 11/16/12 12/17/17 Potassium Chloride [K-Tab ER] 20 meq PO BID 11/16/12 12/17/17 SITagliptin [Januvia] 50 mg PO DAILY 11/17/13 12/17/17 Furosemide 40 mg PO DAILY 10/17/16 12/17/17 Insulin Glargine [Lantus] 15 units SUBQ QPM 10/17/16 12/17/17 Lisinopril [Zestril] 5 mg ORAL DAILY 10/17/16 12/17/17 Pantoprazole Sodium 40 mg PO QDAC 10/17/16 12/17/17 Docusate Sodium 100 mg PO BID PRN 10/18/16 12/17/17 Pravastatin [Pravachol] 40 mg PO QPM 10/18/16 12/17/17 Venlafaxine HCl 37.5 mg PO BID 10/18/16 12/17/17 Benzonatate [Tessalon] 100 mg PO TID PRN #30 capsule 10/21/16 12/17/17 Ipratropium/Albuterol [Duoneb] 3 ml INH RTQID PRN #120 neb 10/21/16 12/17/17 Acetaminophen [Tylenol] 1,000 mg PO Q6H PRN #60 tablet 10/28/16 12/17/17 Loperamide [Imodium] 2 mg PO Q4H PRN #15 capsule 10/28/16 12/17/17 Polyethylene Glycol 3350 [Miralax] 17 gm PO DAILY PRN #1 packet 10/28/16 12/17/17 oxyCODONE [Roxicodone] 5 mg PO Q4H #30 tablet 10/28/16 12/17/17 Tamoxifen Citrate 20 mg PO DAILY 12/17/17 12/17/17 Alendronate [Fosamax] mg PO DAILY 05/12/18 Warfarin [Coumadin] 05/12/18 - Allergies Allergies/Adverse Reactions: Allergies Allergy/AdvReac Type Severity Reaction Status Date / Time Sulfa (Sulfonamide Allergy Severe Hives Verified 10/17/16 22:19 Antibiotics) adhesive Allergy Mild Rash Verified 10/17/16 22:19 codeine Allergy Rash Verified 10/17/16 22:19 Penicillins Allergy Hives Verified 10/17/16 22:19 - Social History Does the pt smoke?: No Smoking Status: Never smoker Does the pt drink ETOH?: Yes Does the pt have substance abuse?: No - Immunizations Immunizations are current?: Yes - POLST Patient has POLST: No PD ED PE NORMAL - Vitals Vital signs reviewed: Yes - General General: Alert and oriented X 3, No acute distress, Well developed/nourished - Neck Neck: Supple, no meningeal sign - Cardiac Cardiac: RRR, No murmur - Respiratory Respiratory: No respiratory distress, Other (scattered bilateral rhonchi, right- sided end-expiratory wheezing) - Abdomen Abdomen: Soft, Non tender - Derm Derm: Normal color, Warm and dry PD ED PE EXPANDED - Extremities Extremities: Pedal edema bilateral (L>R (patient says this is not new)) Results - Vitals Vitals: Vital Signs - 24 hr 05/12/18 05/12/18 05/13/18 20:36 21:08 01:54 Temperature 36.2 C L Heart Rate 104 H 101 H 74 Respiratory 20 18 Rate Blood Pressure 148/78 H 140/91 H 135/78 H O2 Saturation 94 94 98 Oxygen O2 Source [] Room air O2 Source [] Room air O2 Source Room air - Labs Labs: Laboratory Tests 05/12/18 05/12/18 05/12/18 21:40 21:40 21:40 WBC 11.3 H RBC 4.10 L Hgb 12.2 Hct 37.8 MCV 92.0 MCH 29.6 MCHC 32.2 RDW 15.2 H Plt Count 293 MPV 8.9 Neut # (Auto) 8.2 H Lymph # (Auto) 1.8 [place] # (Auto) 0.9 Eos # (Auto) 0.2 Baso # (Auto) 0.1 Absolute Nucleated RBC 0.01 Nucleated RBC % 0.1 PT 27.5 H INR 2.5 H APTT 29.2 Sodium 137 Potassium 3.6 Chloride 102 Carbon Dioxide 27 Anion Gap 8.0 BUN 27 H Creatinine 1.1 H Estimated GFR (MDRD) 48 L Glucose 119 H Lactic Acid Calcium 8.9 Total Bilirubin 0.6 AST 20 ALT 16 Alkaline Phosphatase 51 B-Natriuretic Peptide Total Protein 7.0 Albumin 3.1 L Globulin 3.9 Albumin/Globulin Ratio 0.8 L Lipase 32 05/12/18 05/12/18 21:40 21:40 WBC RBC Hgb Hct MCV MCH MCHC RDW Plt Count MPV Neut # (Auto) Lymph # (Auto) [place] # (Auto) Eos # (Auto) Baso # (Auto) Absolute Nucleated RBC Nucleated RBC % PT INR APTT Sodium Potassium Chloride Carbon Dioxide Anion Gap BUN Creatinine Estimated GFR (MDRD) Glucose Lactic Acid 1.0 Calcium Total Bilirubin AST ALT Alkaline Phosphatase B-Natriuretic Peptide 131 H Total Protein Albumin Globulin Albumin/Globulin Ratio Lipase - Rads (name of study) chest xray Radiology: Prelim report reviewed, See rad report CT chest w/IV contrast Radiology: Prelim report reviewed, See rad report PD MEDICAL DECISION MAKING - ED course Complexity details: reviewed old records, reviewed results, re-evaluated patient, considered differential, d/w patient ED course: mild hemoptysis during ED stay. CT reveals RUL mass which is significantly larger than most recent study (December); there is also surrounding inflammation vs. lymphangitic spread. Case d/w Dr. Stanton (on-call for Dr. Joseph); as patient does not need to be admitted from a symptomatic standpoint (no significant dyspnea, mild hemoptysis with stable vital signs and normal h/h), can be discharged home and will call office in AM to arrange f/u. Departure - Departure Disposition: 01 Home, Self Care Clinical Impression: Lung mass, Hemoptysis Condition: Good Instructions: ED Hemoptysis Follow-Up: Taj Coyle MD [Primary Care Provider] - Heidi Joseph MD [Provider Admit Priv/Credential] - Discharge Date/Time: 05/13/18 01:59
[2018-05-12 21:50] LABS: BASOPHILS # (AUTO) 0.1 10^3/uL (0.0-0.1); BASOPHILS % (AUTO) 0.8 %; EOSINOPHILS # (AUTO) 0.2 10^3/uL (0.0-0.7); HGB - HEMOGLOBIN 12.2 g/dL (12.0-16.0); LYMPHOCYTES # (AUTO) 1.8 10^3/uL (1.5-3.5); LYMPHOCYTES % (AUTO) 16.1 %; MEAN CORPUSCULAR HEMOGLOBIN 29.6 pg (27.0-31.0); MEAN CORPUSCULAR HGB CONC 32.2 g/dL (32.0-36.0); MEAN PLATELET VOLUME 8.9 fL (7.9-10.8); MONOCYTES # (AUTO) 0.9 10^3/uL (0.0-1.0); MONOCYTES % (AUTO) 8.4 %; NEUTROPHILS # (AUTO) 8.2 10^3/uL (1.5-6.6); NEUTROPHILS % (AUTO) 72.7 %; PLT - PLATELET COUNT 293 10^3/uL (130-450); RED CELL DISTRIBUTION WIDTH 15.2 % (12.0-15.0); WHITE BLOOD COUNT 11.3 x10^3/uL (4.8-10.8)
[2018-05-12 21:57] LABS: INR 2.5 (0.8-1.2); PT - PROTHROMBIN TIME 27.5 secs (9.9-12.6)
[2018-05-12 22:02] LABS: ALBUMIN 3.1 g/dL (3.2-5.5); ALBUMIN/GLOBULIN RATIO 0.8 (1.0-2.2); BILIRUBIN,TOTAL 0.6 mg/dL (0.2-1.0); CALCIUM 8.9 mg/dL (8.5-10.3); CREATININE 1.1 mg/dL (0.4-1.0)
--- NOTE | 2018-05-12 22:33 | XRAY Report ---
Reason: coughing up blood Procedure Date: 05/12/2018 Accession Number: [id number] / [id number] Procedure: XR - Chest 2 View X-Ray CPT Code: 68894 FULL RESULT: EXAM: CHEST RADIOGRAPHY EXAM DATE: 05/12/2018 09:53 PM. CLINICAL HISTORY: Coughing up blood. COMPARISON: CT, 12/11/2017. TECHNIQUE: 2 views. FINDINGS: Lungs/Pleura: Right upper lobe airspace opacity. Small lung volumes. Eventration of the left hemidiaphragm. No pleural effusion seen. No pneumothorax. Mediastinum: Mild cardiomegaly. Aortic atherosclerosis. Other: Median sternotomy and CABG. Osteopenia. Degenerative changes in the left shoulder. IMPRESSION: 1. Right upper lobe airspace opacity in the area of nodularity seen on prior CT. This presumably represents malignancy. 2. Mild cardiomegaly and postoperative changes. 3. Osteopenia. RADIA
[2018-05-12] MEDS ORDERED: IOVERSOL 320 100 ML VIAL IVP ONE (23:36)
[2018-05-13] MEDS ORDERED: IOVERSOL 320 100 ML VIAL IVP ONE (00:22)
--- NOTE | 2018-05-13 00:37 | CT Report ---
Reason: RUL mass, hemoptysis Procedure Date: 05/13/2018 Accession Number: [id number] / [id number] Procedure: CT - Chest W/ CPT Code: FULL RESULT: EXAM: CT CHEST EXAM DATE: 05/13/2018 12:21 AM. CLINICAL HISTORY: RUL mass, hemoptysis. COMPARISONS: CHEST W/ 12/11/2017 3:05 PM. TECHNIQUE: Routine helical CT imaging was performed through the chest. IV contrast: Nonionic. Reconstructions: Coronal and sagittal. In accordance with CT protocol optimization, one or more of the following dose reduction techniques were utilized for this exam: automated exposure control, adjustment of mA and/or KV based on patient size, or use of iterative reconstructive technique. FINDINGS: Lungs/Pleura: Right upper lobe mass measuring 5.6 x 5.3 cm with moderate surrounding infiltrate. Left upper lobe scarring. Mild bibasilar atelectasis. No pleural effusion seen. No pneumothorax. Mediastinum: Heart size is normal. Postoperative changes. Mediastinal lymph nodes measuring up to 1.2 cm. Right hilar lymph node measuring 1.4 cm. Bones: Osteopenia. Median sternotomy. Degenerative joint disease in the shoulders. Old left rib fractures. Degenerative changes in the spine. Visualized Abdomen: Fatty liver. Spleen is very small. Other: None. IMPRESSION: 1. Right upper lobe mass measuring 5.6 x 5.3 cm, presumably metastatic although primary malignancy is not excluded. 2. Moderate surrounding infiltrate which could be inflammatory, versus lymphangitic spread. 3. Nonspecific mediastinal and right hilar lymph nodes measuring up to 1.4 cm which are slightly increased compared with the prior CT. RADIA
[2018-05-13 01:55] VITALS: BP 135/78
== END 2018-05-13 01:59 | disposition home or self-care (01) ==
LOC: ED 20:32
DX: R91.8 Other nonspecific abnormal finding of lung field (principal); R04.2 Hemoptysis; I10 Essential (primary) hypertension; E11.9 Type 2 diabetes mellitus without complications; Z79.4 Long term (current) use of insulin; Z79.01 Long term (current) use of anticoagulants
CPT/HCPCS: 36415; 71046; 71260; 80053; 83605; 83690; 83880; 85025; 85610; 85730; 99283; Q9967

== ENCOUNTER 2018-05-21 12:19 | Outpatient (CLI) | payer MEDICARE, OTHER ==
[2018-05-21] MEDS ORDERED: ONDANSETRON 4 MG/2 ML VIAL ONE (13:21)
[2018-05-21] MEDS ORDERED: SODIUM CHLORIDE FLUSH 0.9% 10 ML SYRINGE ONE (13:21)
[2018-05-21] MEDS ORDERED: SODIUM CHLORIDE 0.9% 0 ML IV ONE (13:21)
[2018-05-21] MEDS ORDERED: DEXAMETHASONE 20 MG/5 ML VIAL ONE (13:21)
[2018-05-21] MEDS ORDERED: diphenhydrAMINE INJ 50 MG/ML VIAL ONE (13:21)
[2018-05-21 13:25] LABS: BASOPHILS # (AUTO) 0.1 10^3/uL (0.0-0.1); BASOPHILS % (AUTO) 0.5 %; EOSINOPHILS # (AUTO) 0.3 10^3/uL (0.0-0.7); EOSINOPHILS % (AUTO) 3.5 %; LYMPHOCYTES # (AUTO) 1.5 10^3/uL (1.5-3.5); LYMPHOCYTES % (AUTO) 15.8 %; MEAN CORPUSCULAR HEMOGLOBIN 30.3 pg (27.0-31.0); MEAN CORPUSCULAR HGB CONC 33.4 g/dL (32.0-36.0); MEAN CORPUSCULAR VOLUME 90.8 fL (81.0-99.0); MONOCYTES # (AUTO) 0.7 10^3/uL (0.0-1.0); MONOCYTES % (AUTO) 7.3 %; NEUTROPHILS # (AUTO) 6.9 10^3/uL (1.5-6.6); NEUTROPHILS % (AUTO) 72.9 %; PLT - PLATELET COUNT 293 10^3/uL (130-450); RED BLOOD COUNT 3.97 10^6/uL (4.20-5.40); RED CELL DISTRIBUTION WIDTH 15.6 % (12.0-15.0); WHITE BLOOD COUNT 9.5 x10^3/uL (4.8-10.8)
[2018-05-21 13:53] LABS: ALBUMIN 3.2 g/dL (3.2-5.5); ALBUMIN/GLOBULIN RATIO 0.8 (1.0-2.2); BILIRUBIN,TOTAL 0.4 mg/dL (0.2-1.0); CALCIUM 8.7 mg/dL (8.5-10.3); CREATININE 1.2 mg/dL (0.4-1.0)
--- NOTE | 2018-05-21 14:30 | XRAY Report ---
Reason: BREAST CANCER, LUNG MASS Procedure Date: 05/21/2018 Accession Number: [id number] / [id number] Procedure: XR - Chest 2 View X-Ray CPT Code: 50735 FULL RESULT: EXAM: CHEST RADIOGRAPHY EXAM DATE: 05/21/2018 12:37 PM. CLINICAL HISTORY: Breast cancer, lung mass. COMPARISON: CHEST 2 VIEW 05/12/2018 9:48 PM CHEST W/ 12/11/2017 3:05 PM CHEST W/ 05/12/2018 11:46 PM. TECHNIQUE: 2 views. FINDINGS: Lungs/Pleura: There is opacification of the right upper lung, better delineated on the CT. Elevation of the left hemidiaphragm. Mediastinum: Cardiomegaly status post CABG with median sternotomy and calcified aortic arch. Other: None. IMPRESSION: Accounting for differences in technique, the appearance is relatively stable compared to 05/12/[address] was performed. RADIA
[2018-05-21] MEDS ORDERED: IOVERSOL 320 100 ML VIAL IVP ONE ×2 (16:53→17:51)
--- NOTE | 2018-05-22 09:19 | CT Report ---
Reason: METESTIC BREAST CANCER, VASULAR ACCESS Procedure Date: 05/21/2018 Accession Number: [id number] / [id number] Procedure: CT - Chest W/ CPT Code: FULL RESULT: EXAM: CT CHEST EXAM DATE: 05/21/2018 05:22 PM. CLINICAL HISTORY: Metastatic breast cancer, vascular access. Specific purpose of this study is delineation of venous anatomy in anticipation of chemotherapy port placement. COMPARISONS: Chest with contrast 05/12/2018 11:46 PM. TECHNIQUE: Routine helical CT imaging was performed through the chest. IV contrast: 90 mL Optiray 320. Reconstructions: Coronal and sagittal. In accordance with CT protocol optimization, one or more of the following dose reduction techniques were utilized for this exam: automated exposure control, adjustment of mA and/or KV based on patient size, or use of iterative reconstructive technique. FINDINGS: Thoracic Vasculature: The right axillary, subclavian and brachiocephalic veins demonstrate good caliber and patency with prominent mixing artifact at the confluence of the internal jugular and subclavian vein due to a prominent valve. The left axillary vein is suboptimally opacified but appears patent. The left subclavian vein and innominate vein is patent. While there is minimal mass effect from the right hilum onto the lower SVC, superior vena cava is widely patent to the level of the atrium. The left internal jugular vein is patent, diminutive in caliber relative to the right internal jugular vein, right dominant system variant of normal. Contrast bolus is not optimized for the arterial system. Within these limits the arterial system is unchanged from prior with extensive atherosclerotic disease including the aortic arch and coronary vasculature. Lungs/Pleura: The right pulmonary mass is likely unchanged in size. Apparent interval decrease in AP and transverse dimension is accompanied by an increase in size in the craniocaudal dimension. This is felt to be due to differences in inspiration and position. Surrounding consolidative/infiltrative changes are also similar. There are no significant new pulmonary findings. No pleural effusion or pneumothorax. Mediastinum: Stable compared to 05/12/2018, normal cardiac size with postoperative changes. Mediastinal lymphadenopathy including the right hilum appears overall unchanged. Bones: Findings are unchanged compared to 05/12/2018 with postoperative findings and no aggressive osseous lesions identified. Visualized Abdomen: Partially visualized IVC filter and suspected right renal cyst, incompletely imaged. Other: None. IMPRESSION: Bilaterally patent venous thorax. RADIA
== END 2018-05-21 12:20 | disposition home or self-care (01) ==
LOC: DI 12:19
PROVIDERS: ATTEND Internal Medicine Gastroenterology
DX: C50.919 Malignant neoplasm of unspecified site of unspecified female breast (principal); R91.8 Other nonspecific abnormal finding of lung field; I51.7 Cardiomegaly; Z95.1 Presence of aortocoronary bypass graft; E11.9 Type 2 diabetes mellitus without complications
CPT/HCPCS: 36415; 71046; 71260; 80053; 85025; 93005; Q9967

== ENCOUNTER 2018-05-24 21:08 | Inpatient (IN) | payer MEDICARE, OTHER ==
[2018-05-24 21:44] LABS: BASOPHILS # (AUTO) 0.1 10^3/uL (0.0-0.1); BASOPHILS % (AUTO) 1.1 %; EOSINOPHILS # (AUTO) 0.4 10^3/uL (0.0-0.7); EOSINOPHILS % (AUTO) 3.6 %; HGB - HEMOGLOBIN 12.1 g/dL (12.0-16.0); LYMPHOCYTES # (AUTO) 1.3 10^3/uL (1.5-3.5); MEAN CORPUSCULAR HEMOGLOBIN 29.9 pg (27.0-31.0); MEAN CORPUSCULAR HGB CONC 32.5 g/dL (32.0-36.0); MEAN PLATELET VOLUME 10.5 fL (7.9-10.8); MONOCYTES # (AUTO) 0.2 10^3/uL (0.0-1.0); MONOCYTES % (AUTO) 2.3 %; NEUTROPHILS # (AUTO) 8.5 10^3/uL (1.5-6.6); PLT - PLATELET COUNT 252 10^3/uL (130-450); RED BLOOD COUNT 4.04 10^6/uL (4.20-5.40); RED CELL DISTRIBUTION WIDTH 15.2 % (12.0-15.0); WHITE BLOOD COUNT 10.5 x10^3/uL (4.8-10.8)
--- NOTE | 2018-05-24 21:45 | ED Physician Documentation ---
History of Present Illness - Stated complaint Stated Complaint: BLEEDING FROM MOUTH - Chief complaint Chief Complaint: Resp - Additonal information Additional information: hx from pt EMR and PMD who called ahead 83 f known breast CA mets to lung seen last week for hemoptysis and CT showed inc R lung tumor started chemo at [facility] hx DVT PE - was on coumadin - now off coumadin on lovenox so she can get a port today heavy hemoptysis (numerous times she has cough up several tablespoons or bright red blood) soa and labored breathing deneies chest pain no fever + chills no blood black BM LLE is always swollen Review of Systems Constitutional: denies: Fever, Chills Cardiac: denies: Chest pain / pressure Respiratory: reports: Dyspnea, Cough, Hemoptysis GI: denies: Abdominal Pain, Nausea, Vomiting, Diarrhea, Bloody / black stool : denies: Hematuria Musculoskeletal: reports: Extremity swelling (LLE chronic) Endocrine: reports: Easy bruising / bleeding (lovenox) Immunocompromised: reports: Immunocompromised (chemo) PD PAST MEDICAL HISTORY - Past Medical History Cardiovascular: Hypertension, High cholesterol, Deep vein thrombosis, Pulmonary embolism Respiratory: Asthma Endocrine/Autoimmune: Type 2 diabetes GI: None [employer] 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: Breast 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 : None HEENT: None Psych: Depression Musculoskeletal: Osteoarthritis, Gout, Fatigue, Chronic back pain Derm: None - Past Surgical History Past Surgical History: Yes Ortho: Knee replacement /[employer] DIRECTOR: 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 Cardiovascular: CABG - Present Medications Home Medications: Ambulatory Orders Medication Instructions Recorded Confirmed Albuterol Sulfate [Proair Hfa 8.5 gm IH Q6H PRN 11/16/12 12/17/17 Inhaler] Allopurinol [Zyloprim] 150 mg PO DAILY 11/16/12 12/17/17 Metoprolol Succinate [Toprol Xl] 50 mg PO BID 11/16/12 12/17/17 Potassium Chloride [K-Tab ER] 20 meq PO BID 11/16/12 12/17/17 SITagliptin [Januvia] 50 mg PO DAILY 11/17/13 12/17/17 Furosemide 40 mg PO DAILY 10/17/16 12/17/17 Insulin Glargine [Lantus] 15 units SUBQ QPM 10/17/16 12/17/17 Lisinopril [Zestril] 5 mg ORAL DAILY 10/17/16 12/17/17 Pantoprazole Sodium 40 mg PO QDAC 10/17/16 12/17/17 Docusate Sodium 100 mg PO BID PRN 10/18/16 12/17/17 Pravastatin [Pravachol] 40 mg PO QPM 10/18/16 12/17/17 Venlafaxine HCl 37.5 mg PO BID 10/18/16 12/17/17 Benzonatate [Tessalon] 100 mg PO TID PRN #30 capsule 10/21/16 12/17/17 Ipratropium/Albuterol [Duoneb] 3 ml INH RTQID PRN #120 neb 10/21/16 12/17/17 Acetaminophen [Tylenol] 1,000 mg PO Q6H PRN #60 tablet 10/28/16 12/17/17 Loperamide [Imodium] 2 mg PO Q4H PRN #15 capsule 10/28/16 12/17/17 Polyethylene Glycol 3350 [Miralax] 17 gm PO DAILY PRN #1 packet 10/28/16 12/17/17 oxyCODONE [Roxicodone] 5 mg PO Q4H #30 tablet 10/28/16 12/17/17 Tamoxifen Citrate 20 mg PO DAILY 12/17/17 12/17/17 Alendronate [Fosamax] mg PO DAILY 05/12/18 Warfarin [Coumadin] 05/12/18 Aspirin [Adult Aspirin Regimen] 81 mg PO DAILY 05/18/18 05/18/18 Calcium Carbonate/Vitamin D3 2 tab PO DAILY 05/18/18 05/18/18 [Calcium 600-Vit D3 800 Tablet] Multivitamin/Iron/Folic Acid 1 each PO DAILY 05/18/18 05/18/18 [Centrum Adults Tablet] Ondansetron HCl [Zofran] 4 mg PO Q4H PRN #30 tablet 05/18/18 Prochlorperazine Maleate 10 mg PO Q6H PRN #30 tablet 05/18/18 [Compazine] - Allergies Allergies/Adverse Reactions: Allergies Allergy/AdvReac Type Severity Reaction Status Date / Time Sulfa (Sulfonamide Allergy Severe Hives Verified 05/24/18 21:21 Antibiotics) adhesive Allergy Mild Rash Verified 05/24/18 21:21 Penicillins Allergy Hives Verified 12/16/18 21:21 - Social History Does the pt smoke?: No Smoking Status: Never smoker Does the pt drink ETOH?: Yes Does the pt have substance abuse?: No - Immunizations Immunizations are current?: Yes - POLST Patient has POLST: No PD ED PE NORMAL - Vitals Vital signs reviewed: Yes (tachy tachypenic hypoxic) - General General: Alert and oriented X 3 - HEENT HEENT: Other (audible wet roncho, pursed lip breathing, speaks few words at a time, incessant wet cough) - Cardiac Cardiac: RRR (tachy diff to hear over ronchi) - Respiratory Respiratory: Other (labroed, ronchi, coughing, pursed lip brathing, only able to speak a few words) - Abdomen Abdomen: Soft, Non tender - Derm Derm: Normal color - Extremities Extremities: No calf tenderness / cord, Other (mild edema bee L slightly > R) - Neuro Neuro: Alert and oriented X 3 Results - Vitals Vitals: Vital Signs - 24 hr 05/24/18 05/24/18 05/24/18 21:16 21:39 22:50 Temperature 37.3 C Heart Rate 128 H 120 H 124 H Respiratory 29 H 23 26 H Rate Blood Pressure 156/134 H 136/62 H 203/110 H O2 Saturation 88 L 93 95 05/24/18 05/25/18 23:22 00:10 Temperature Heart Rate 119 H 118 H Respiratory 25 H 22 Rate Blood Pressure 137/90 H 189/92 H O2 Saturation 99 96 Oxygen O2 Source [With Activity] Room air O2 Source [Without Activity] Room air O2 Source Simple Mask - EKG (time done) 2142 Rate: Rate (enter#) (119) Rhythm: Sinus tachycardia ( Ps best seen lead II) [place]: Normal Intervals: Normal [place] Ischemia: Q waves (III and AVF) Other comments: Other comments (Q3 Ts tachy, no RBBB) - Labs Labs: Laboratory Tests 05/24/18 05/24/18 05/24/18 21:29 21:29 21:29 WBC 10.5 RBC 4.04 L Hgb 12.1 Hct 37.2 MCV 92.0 MCH 29.9 MCHC 32.5 RDW 15.2 H Plt Count 252 MPV 10.5 Neut # (Auto) 8.5 H Lymph # (Auto) 1.3 L [place] # (Auto) 0.2 Eos # (Auto) 0.4 Baso # (Auto) 0.1 Absolute Nucleated RBC 0.03 Nucleated RBC % 0.3 PT 22.2 H INR 2.0 H APTT Sodium 137 Potassium 3.5 Chloride 100 L Carbon Dioxide 28 Anion Gap 9.0 BUN 35 H Creatinine 1.2 H Estimated GFR (MDRD) 43 L Glucose 196 H Lactic Acid Calcium 8.4 L 05/24/18 05/24/18 21:29 22:00 WBC RBC Hgb Hct MCV MCH MCHC RDW Plt Count MPV Neut # (Auto) Lymph # (Auto) [place] # (Auto) Eos # (Auto) Baso # (Auto) Absolute Nucleated RBC Nucleated RBC % PT INR APTT 26.6 Sodium Potassium Chloride Carbon Dioxide Anion Gap BUN Creatinine Estimated GFR (MDRD) Glucose Lactic Acid 1.3 Calcium - Rads (name of study) CTPA Radiology: See rad report (no PE, per verbal d/w rads tumor is not eroding into any major veseels or airways, tumor as before with worsening surroinf infiltrate that culd be infectious could be hemorrhage, could be cancerous and per rads CT cannot differentiate ) PD MEDICAL DECISION MAKING - ED course ED course: GFR > 30 and stable from prior labs and CT angio def needed so proceeded with CTA no PE tumor not eroding into airways or vessels tumor as before worsening surrounding infiltrate- ddx includes infection hemorrhage and cancer - there no study available at [facility] at night to clarify this ddx further so will start ab and req hospitalist to admit pagearya hospitalist at 1120 PM spoke to hospitalist at 2320 hospitalist rec not starting antibiotics as pt has no fever or white count she will admit pt to ICU as she is now req 5 L suppl O2 to keep sats up pt and family updated hemoptysis has slowed in ED so plan for now is to dc lovenox if severe hemorrhage would rec consideration of TXA systemic and/or nebulized also spoke to pt about POLST - she states she has the form at home but has not filled it out yet Departure - Departure Disposition: 66 [facility] DC/Xfer Clinical Impression: Hemoptysis, Cancer Discharge Date/Time: 05/25/18 01:25
[2018-05-24 21:52] LABS: CALCIUM 8.4 mg/dL (8.5-10.3); CREATININE 1.2 mg/dL (0.4-1.0)
[2018-05-24] MEDS ORDERED: IOVERSOL 320 100 ML VIAL IVP ONE ×2 (22:08→22:27)
[2018-05-24 22:51] LABS: PT - PROTHROMBIN TIME 22.2 secs (9.9-12.6)
--- NOTE | 2018-05-24 22:59 | CT Report ---
Reason: breast CA met to lung hx PE hemotysis Procedure Date: 05/24/2018 Accession Number: [id number] / [id number] Procedure: CT - Chest Angio (PE) CPT Code: FULL RESULT: EXAM: CT ANGIOGRAM CHEST EXAM DATE: 05/24/2018 10:39 PM. CLINICAL HISTORY: Breast cancer metastatic to lung with history of pulmonary embolism. Hemoptysis. COMPARISON: CHEST W/ 05/21/2018 4:48 PM. TECHNIQUE: Routine helical imaging was performed through the chest in the pulmonary arterial phase. IV Contrast: OPTIRAY 320 80mL. Reconstructions: Coronal 3-D MIP reconstructions.Sagittal and coronal. In accordance with CT protocol optimization, one or more of the following dose reduction techniques were utilized for this exam: automated exposure control, adjustment of mA and/or KV based on patient size, or use of iterative reconstructive technique. FINDINGS: Pulmonary Arteries: Diagnostic quality: Adequate through the segmental arteries. No evidence for acute or chronic pulmonary emboli. No evidence of right heart strain. Lungs/Pleura: Right upper lobe lung mass measuring 6.3 x 5.9 cm. Surrounding infiltrate appears mildly increased. Probable postradiation scarring in the left upper lobe. No pleural effusion seen. No pneumothorax. Mediastinum: Heart size is normal. Mediastinal lymph nodes measuring up to 1.8 x 1.2 cm. Right hilar lymph node measuring 1.8 x 1.2 cm. Thoracic Aorta: Moderate atherosclerosis. No aneurysm or dissection. Upper Abdomen: Unremarkable. Other: Median sternotomy. Postoperative changes in the left breast and axilla. Osteopenia. Old left rib fractures. Scoliosis. Degenerative changes in the spine. IMPRESSION: 1. No pulmonary emboli seen. 2. Right upper lobe lung mass with increased surrounding infiltrate compared with the prior exam. Pulmonary hemorrhage also possible. 3. Mildly prominent nonspecific mediastinal and right hilar lymph nodes. RADIA
[2018-05-25] MEDS ORDERED: ONDANSETRON 4 MG/2 ML VIAL IVP PRN (00:53)
[2018-05-25] MEDS ORDERED: ACETAMINOPHEN 325 MG TABLET PO PRN (00:53)
[2018-05-25] MEDS ORDERED: LACTATED RINGERS 1,000 ML IV SCH (01:00)
[2018-05-25] MEDS ORDERED: NS W/20 MEQ KCL 1,000 ML IV SCH (01:00)
[2018-05-25] MEDS ORDERED: PROTAMINE 250 MG/25 ML VIAL IVP ONE (01:03)
[2018-05-25] MEDS ORDERED: oxyCODONE 5 MG TABLET PO PRN ×2 (01:05→08:58)
[2018-05-25] MEDS ORDERED: DOCUSATE SODIUM 100 MG CAPSULE PO PRN (01:05)
[2018-05-25] MEDS ORDERED: ALBUTEROL 6.7 GM INHALER INH PRN (01:05)
[2018-05-25] MEDS: CEFEPIME 1 GM in SODIUM CHLORIDE 0.9% MINIBAG 100 ML IV SCH ×2 (01:59→14:36)
[2018-05-25] MEDS: METOPROLOL SUCCINATE 25 MG TABLET PO SCH ×3 (02:00→21:05)
[2018-05-25] MEDS: PANTOPRAZOLE 40 MG VIAL IVP SCH ×2 (02:00→06:05)
[2018-05-25] MEDS: guaiFENesin/DEXTROMETHORPHAN 10 ML UDC PO SCH ×5 (02:00→23:30)
[2018-05-25] MEDS: SODIUM CHLORIDE FLUSH 0.9% 10 ML SYRINGE IVP SCH ×3 (02:00→18:13)
[2018-05-25] MEDS: IPRATROPIUM/ALBUTEROL 3 ML NEB INH SCH ×5 (02:15→20:37)
--- NOTE | 2018-05-25 02:51 | HISTORY & PHYSICAL EXAMINATION ---
DATE OF SERVICE: 05/25/2018 Physician: Mandi Vargas MD CHIEF COMPLAINT: Hemoptysis. PRIMARY CARE PHYSICIAN: Dr. Taj Coyle. HISTORY OF PRESENT ILLNESS: Patient is an 83-year-old female with multiple chronic medical problems who presented to the ER with a two week history of dry cough, no fever, a somewhat acute onset of shortness of breath to the point that she felt she could not breathe and hemoptysis, which started around 5 a.m. on 05/24/2018. Patient reported that throughout the day on 05/24/2018 she coughed up a handful of blood at least 3-4 times. Her shortness of breath was progressive. She presented to the ER and was found in respiratory distress with increased work of breathing, respiratory rate above 30, and with low oxygen saturation in the 80s on room air. She was tachycardic with initial heart rate of 128. Her blood pressure was 156/134. She had slightly elevated temperature at 37.3 Celsius. Her laboratories were with minor abnormalities including creatinine of 1.2, BUN 35. Lactic acid was normal. Blood glucose was 196. INR was 2. Notably, the patient was on anticoagulants. White blood cell count was normal, hemoglobin was 12.1 within normal range. The patient underwent CT angiography of the chest which showed no pulmonary embolism; however, right upper lobe lung mass with increased surrounding infiltrate compared with the prior exam. Pulmonary hemorrhage was suspected. Nonspecific mediastinal and right hilar lymphadenopathy was also described. Putting it in context, this patient has history of breast cancer, which was diagnosed in 2008. She received chemotherapy with multiple different chemotherapy agents and had been followed by oncology. Subsequently, at the end of April, she was seen in [facility] ER with hemoptysis and workup showed large lung mass which, on further workup, was found to be metastatic disease from prior breast cancer. Notably, this patient's history is also significant for pulmonary embolism and DVT, for which she was therapeutically anticoagulated on Coumadin. She does have an IVC filter; however, as she had a subdural hematoma at the same time she had PE and DVT, and at that time, she was not a candidate for immediate anticoagulation. Subsequently, after the subdural hematoma resolved and she became a candidate for anticoagulation, she was started on Coumadin. Now, as she is scheduled for chemotherapy again for her metastatic breast cancer, she was started on Lovenox, awaiting port placement, which was planned to happen on 05/25/2018. During the past few days, she had been on Lovenox anticoagulation. Regarding her other medical problems, she does have history of COPD and was admitted to our hospital in the past with COPD exacerbation back in October 2016; however, the patient reports that she has never been oxygen dependent. Reviewing oncology note from 05/18/2018, detailed oncology plan is outlined and regarding code status, it was mentioned that discussion was started, not yet completed. The patient seemed to be indecisive about goals of care. On current admission, it seems that she is acutely ill and I extensively discussed her current situation, workup, underlying medical problems, prognosis and overall situation. We discussed goals of care and different treatment options. The patient does not have very good understanding regarding the constellation of all of her medical problems. She stated that she wanted to live up to age 89; she does have a good sense of humor, but she somewhat means seriously that she would not want to limit aggressive interventions even if she has multiple advanced conditions. She is hopeful and optimistic that she will pull through and she tells me that she was severely ill prior to her three-way bypass and she pulled through at that time. Therefore, she is also optimistic about her recent lung metastatic mass and she is hopeful that receiving chemotherapy would help. In summary, she would want to continue with FULL CODE status. PAST MEDICAL HISTORY 1. Hypertension. 2. Dyslipidemia. 3. 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 4. Coronary artery disease, status post coronary artery bypass graft. 5. Pulmonary embolism/DVT, status post IVC filter placement, plus on therapeutic anticoagulation. 6. History of subdural hematoma, which was traumatic. Patient suffered this in the setting of fall and head injury. This happened to be at the same time when she had acute PE. 7. History of chronic back pain/spinal stenosis/on chronic opiate. 8. History of transient ischemic attacks and memory impairment. 9. Osteoarthritis/gout. 10. History of breast cancer diagnosed in 2008, most recently with metastatic lung disease. For complete details I refer the reader to the oncology note dated 05/18/2018. Last chemotherapy the patient received was on 05/21/2018. 11. History of anemia. 12. History of rectus sheath hematoma. OUTPATIENT MEDICATIONS 1. Paclitaxel on 05/21/2018 and she was planned to receive it weekly. 2. Oxycodone. 3. Venlafaxine. 4. Pravastatin. 5. Metoprolol. 6. Docusate. 7. Allopurinol. 8. Albuterol. 9. Tylenol. 10. Coumadin, which was recently on hold. 11. Tamoxifen. 12. Lovenox. 13. Januvia. 14. Insulin. 15. Compazine. 16. Potassium supplement. 17. MiraLAX. 18. Protonix. 19. Zofran. 20. Multivitamins. 21. Imodium. 22. Lisinopril. 23. DuoNeb. 24. Furosemide. 25. Vitamin D and calcium. 26. Tessalon. 27. Aspirin. 28. Fosamax. ALLERGIES: INCLUDE SULFA AND PENICILLIN. SOCIAL HISTORY: Patient quit smoking about 25 years ago. She lives with her . FUNCTIONAL STATUS: Patient ambulates with a walker and occasionally uses a wheelchair. She reports that she can perform all activities of daily living inside her house; however, she does have difficulty getting around outside of the house. She stopped driving about a year ago and the reason is that her told her that she was getting too close to some bicycle riders. The patient does not report much decline in her mental abilities. She, however, reports having neuropathy on her feet and sometimes she bumps into objects and has some small wounds. CODE STATUS: Code status and advanced care planning discussion was done and the details listed above at history of present illness. FAMILY HISTORY: Father had cerebrovascular accident, TIA and type 2 diabetes. Mother had coronary artery disease prior to age 50. REVIEW OF SYMPTOMS: Please see pertinent positives and pertinent negatives listed above in history of present illness. The patient did not report additional complaints on the 12-system review. All other systems were negative. PHYSICAL EXAMINATION VITAL SIGNS: Please listed above in history of present illness. GENERAL: The patient is a well-developed, chronically ill-appearing female who was acutely short of breath, had increased work of breathing and required more than five liters oxygen via facemask. RESPIRATORY: Patient could only speak in short sentences. She had bronchial breath sounds and crackles which were audible even without a stethoscope. Had increased work of breathing in the mid to high 20s. Air entry was decreased about all lung low anteriorly and posteriorly, with rhonchi and crackles. CARDIOVASCULAR: S1, S2 due to transmitted airway sounds. I could not hear a murmur, rub or gallop. There was regular tachycardia. ABDOMEN: Benign. Slightly distended, nontender. Bowel tones present. LYMPHATIC: No lymphedema. MUSCULOSKELETAL: Small abrasions and wounds on multiple toes. No joint swelling and no muscle tenderness. NEUROLOGIC: Alert, oriented, nonfocal. PSYCHIATRIC: Cooperative. SKIN: Without jaundice or pallor. ASSESSMENT/ACTIVE ISSUES/DIAGNOSES 1. Hypoxic respiratory failure requiring more than 5 liters oxygen. 2. Lung hemorrhage per CT scan. 3. Cannot rule out postobstructive pneumonia with lymphadenopathy and a lung mass. 4. Breast cancer with metastatic lung mass. 5. Immunocompromised status on chemotherapy. 6. Coagulopathy, on anticoagulants. Was on Coumadin, which was stopped, and most recently had been on Lovenox. 7. Therapeutically anticoagulated for history of pulmonary embolism and deep venous thrombosis, however, has an inferior vena cava filter as well. 8. History of diabetes with neuropathy. 9. History of coronary artery disease. Reports no symptoms of angina, appears stable. 10. Peripheral neuropathy and small foot wounds. 11. History of chronic obstructive pulmonary disease. In the setting of lung hemorrhage, steroids could be more harm than benefit. Primary problem today seems lung hemorrhage. GOALS OF CARE/LEVEL OF CARE: Regarding goals of care and level of care, the patient has advanced disease with multiple comorbidities; therefore, care plan discussion was done. She wishes to be FULL CODE. PLAN/ORDERS 1. Due to acute respiratory failure and high oxygen requirement, also due to tachycardia and overall ongoing severe problem with lung hemorrhage, the patient is getting admitted to the ICU as her condition is critical. She will be closely monitored for airway issues and repeated bleed. 2. Regarding coagulopathy, she was on Lovenox and I ordered protamine to reverse. Considering risk and benefit, I discussed with the patient that lung hemorrhage, if it does not stop could, be immediately life threatening, however, thromboembolic complication has less chance to be immediately life threatening, even more so because the patient already has an IVC filter. 3. Regarding diabetes, the patient will be n.p.o. overnight until her respiratory status stabilizes and she will be monitored with insulin sliding scale. 4. Regarding outpatient medications, considering that the patient is n.p.o. and she has lung hemorrhage, I will hold lisinopril and Lasix. We will continue metoprolol. Overnight, the patient will receive judicious IV hydration. Considering her advanced age and lung permeability being increased in the setting of lung hemorrhage plus/minus pneumonia, we will be cautious giving IV fluid. 5. Regarding coronary artery disease, the patient appears stable. She had an unremarkable nonischemic EKG. At some point, an echocardiogram could be considered. 6. Concerning possibility of pneumonia, it should be considered complicated and it would be postobstructive plus healthcare-acquired in this immunocompromised patient who is receiving chemotherapy. Therefore, I started cefepime. We will check respiratory culture and MRSA screen. If MRSA screen is positive, then we would consider adding vancomycin. 7. For deep venous thrombosis prophylaxis, we will use Venodyne boots. Time spent in the care of this patient was 55 minutes of critical care time and 20 minutes advanced care planning discussion. ATTESTATION: I certify that the reasonable expectation for this patient is to remain hospitalized for at least 48 hrs, but to discharge or transfer to another facility within 96 hrs. TD: 05/25/2018 02:18 SAL
[2018-05-25] MEDS ORDERED: VANCOMYCIN PER PHARMACY 0.001 GM in SODIUM CHLORIDE 0.9% 250 ML IV PRN (05:00)
[2018-05-25] MEDS ORDERED: VANCOMYCIN INJ 1.5 GM in SODIUM CHLORIDE 0.9% 500 ML IV SCH (06:00)
[2018-05-25] MEDS: INSULIN REGULAR HUMAN 100 UNIT/1 ML 10 ML MDV SUBQ SCH ×2 (06:30→12:42)
[2018-05-25] MEDS ORDERED: PROTAMINE 250 MG/25 ML VIAL IVP SCH (08:00)
[2018-05-25] MEDS: ALLOPURINOL 100 MG TABLET PO SCH (08:54)
[2018-05-25] MEDS ORDERED: ALBUTEROL NEB 2.5 MG/3 ML INH PRN (08:57)
[2018-05-25] MEDS: VENLAFAXINE 37.5 MG TABLET PO SCH ×2 (08:59→21:05)
[2018-05-25] MEDS: ACETAMINOPHEN 500 MG TABLET PO PRN ×2 (09:11→18:13)
[2018-05-25] MEDS: POLYETHYLENE GLYCOL 3350 17 GM PACKET PO SCH (09:51)
--- NOTE | 2018-05-25 13:26 | PROVIDER PROGRESS NOTE ---
Subjective - Prog Note Date Prog Note Date: 05/25/18 Prog Note Time: 13:21 - Subjective Pt reports feeling: Improved Subjective: She still has a little bit of hemoptysis about every other time that she coughs. But it is not coming out in the copious amounts she had yesterday. She was very frightened yesterday. Her acute respiratory failure with hypoxia has leveled off. She was on 5 L oxygen mask to maintain 95%. That she came down to 2 L oxygen mask. And for the last 2 hours she is been on room air and saturating at 94%. She has not needed protamine or FFP. Protamine was ordered but because of delay not given. At this late point in the day, I do not think we need to give it now. The question remains about when to do the Port-A-Cath. General surgery and anesthesia would like her to be without hemoptysis for the rest of today, and they can keep the scheduled appointment for the Port-A-Cath tomorrow. Current Medications - Current Medications Current Medications: Active Medications Generic Name Dose Route Start Last Admin Trade Name Freq PRN Reason Stop Dose Admin Acetaminophen 1,000 mg 05/25/18 01:05 05/25/18 09:11 Tylenol PO 1,000 mg Q6H PRN Administration Pain 1 to 4 Albuterol 2.5 mg 05/25/18 08:57 INH Q6H PRN Wheezing Albuterol/Ipratropium 3 ml 05/25/18 01:00 05/25/18 13:07 Duoneb INH 3 ml RTQID [facility] Administration Allopurinol 150 mg 05/25/18 09:00 05/25/18 08:54 Zyloprim PO 150 mg DAILY [facility] Administration Docusate Sodium 100 mg 05/25/18 01:05 Colace 100mg Capsule PO BID PRN Constipation Guaifenesin 10 ml 05/25/18 02:00 05/25/18 12:42 Robitussin Dm PO 10 ml Q6HR [facility] Administration Potassium Chloride/Sodium Chloride 1,000 mls @ 60 mls/hr 05/25/18 01:00 05/25/18 01:59 Normal Saline 0.9% W/20 Meq Kcl IV 05/25/18 17:39 60 mls/hr .[id number] [facility] Administration Cefepime HCl 1 gm/ Sodium 100 mls @ 200 mls/hr 05/25/18 02:00 05/25/18 02:30 Chloride IV Infused Q12H [facility] Infusion Vancomycin HCl 0.001 gm/ 250 mls @ 167 mls/hr 05/25/18 05:00 Sodium Chloride IV .perpharmacy PRN PER PHARMACY Insulin Human Regular 1 - 5 unit 05/25/18 06:00 05/25/18 12:42 Novolin R SUBQ Not Given Q6HR [facility] Protocol Metoprolol Succinate 25 mg 05/25/18 21:00 Toprol Xl PO BID [facility] Morphine Sulfate 2 mg 05/25/18 00:53 Morphine (Carpuject) IVP Q2HR PRN Pain 8 to 10 Ondansetron HCl 4 mg 05/25/18 00:53 Zofran Inj IVP Q6HR PRN Nausea / Vomiting Oxycodone HCl 5 - 10 mg 05/25/18 08:58 Roxicodone PO Q4H PRN PAIN Pantoprazole Sodium 40 mg 05/25/18 00:53 05/25/18 06:05 Protonix IVP Not Given QDAC [facility] Polyethylene Glycol 17 gm 05/25/18 09:00 05/25/18 09:51 Miralax PO Not Given DAILY [facility] Pravastatin Sodium 40 mg 05/25/18 21:00 Pravachol PO QPM [facility] Sodium Chloride 10 ml 05/25/18 00:53 Normal Saline Flush 0.9% IVP PRN PRN NEEDED PER PROVIDER ORDERS Sodium Chloride 10 ml 05/25/18 01:00 05/25/18 09:51 Normal Saline Flush 0.9% IVP Not Given 0100,0900,1700 [facility] Venlafaxine HCl 37.5 mg 05/25/18 09:00 05/25/18 08:59 Effexor PO 37.5 mg BID [facility] Administration Allopurinol [Zyloprim] 150 mg PO DAILY 11/16/12 Metoprolol Succinate [Toprol Xl] 25 mg PO DAILY 11/16/12 Potassium Chloride [K-Tab ER] 10 meq PO DAILYWM 11/16/12 Furosemide 40 mg PO DAILY 10/17/16 Insulin Glargine [Lantus] 15 units SUBQ QPM 10/17/16 Lisinopril [Zestril] 5 mg PO DAILY 10/17/16 Pantoprazole Sodium 40 mg PO QDAC 10/17/16 Pravastatin [Pravachol] 40 mg PO QPM 10/18/16 Venlafaxine HCl 37.5 mg PO BID 10/18/16 Tamoxifen Citrate 20 mg PO DAILY 12/17/17 Alendronate [Fosamax] 70 mg PO Q7D 05/12/18 Aspirin [Adult Aspirin Regimen] 81 mg PO DAILY 05/18/18 Calcium Carbonate/Vitamin D3 [Calcium 600-Vit D3 800 Tablet] 1 tab PO BID 05/18/18 Multivitamin/Iron/Folic Acid [Centrum Adults Tablet] 1 each PO DAILY 05/18/18 Acetaminophen [Tylenol Extra Strength] 1,000 mg PO BID PRN 05/25/18 Anastrozole 1 mg PO DAILY 05/25/18 Ondansetron HCl [Zofran] 4 mg PO Q4H PRN 05/25/18 Prochlorperazine Maleate 10 mg PO Q6H PRN 05/25/18 Sitagliptin Phosphate [Januvia] 50 mg PO DAILY 05/25/18 Warfarin Sodium 2.5 mg PO DAILY 05/25/18 Objective - Vital Signs/Intake & Output Reviewed Vital Signs: Yes Vital Signs: Vital Signs x48h Temp Pulse Resp BP Pulse Ox 05/25/18 13:00 84 23 118/61 100 05/25/18 12:00 36.8 C 85 17 124/59 L 94 05/25/18 11:00 100 24 120/58 L 94 05/25/18 10:17 100 05/25/18 10:00 89 22 121/64 05/25/18 09:23 37.0 C 98 21 128/68 95 05/25/18 09:15 95 05/25/18 09:00 23 95 05/25/18 08:30 95 05/25/18 06:00 101 H 26 H 129/70 97 05/25/18 05:23 37.0 C 107 H 22 112/60 92 Intake & Output: Intake & Output 05/22/18 05/23/18 05/24/18 05/25/18 23:59 23:59 23:59 23:59 Intake Total 600 Output Total 350 Balance 250 - Objective General Appearance: positive: No acute distress, Alert, Other (Sitting up in bed, wanting to eat lunch. Portly elderly female) Eyes Bilateral: positive: PERRL, EOMI ENT: positive: Pharynx nml Neck: positive: No JVD. negative: Stiff neck, Carotid bruit Respiratory: positive: Chest non-tender, Rhonchi. negative: Wheezes, Rales Cardiovascular: positive: Regular rate & rhythm. negative: Gallop/S4, Friction rub Abdomen: positive: Non-tender, No organomegaly, Nml bowel sounds, No distention Skin: positive: Warm, Dry Extremities: positive: Full ROM, No pedal edema Neurologic/Psychiatric: positive: Oriented x3, CN's nml (2-12), Motor nml - Lab Results Fish Bones: 05/24/18 21:29 05/24/18 21:29 Other Labs: Lab Results x24hrs 05/25/18 05/25/18 05/24/18 Range/Units 12:30 06:18 22:00 WBC (4.8-10.8) x10^3/uL RBC (4.20-5.40) 10^6/uL Hgb (12.0-16.0) g/dL Hct (37.0-47.0) % MCV (81.0-99.0) fL MCH (27.0-31.0) pg MCHC (32.0-36.0) g/dL RDW (12.0-15.0) % Plt Count (130-450) 10^3/uL MPV (7.9-10.8) fL Neut # (Auto) (1.5-6.6) 10^3/uL Lymph # (Auto) (1.5-3.5) 10^3/uL [place] # (Auto) (0.0-1.0) 10^3/uL Eos # (Auto) (0.0-0.7) 10^3/uL Baso # (Auto) (0.0-0.1) 10^3/uL Absolute Nucleated RBC x10^3/uL Nucleated RBC % /100WBC PT (9.9-12.6) secs INR (0.8-1.2) APTT (24.9-33.3) secs Sodium (135-145) mmol/L Potassium (3.5-5.0) mmol/L Chloride (101-111) mmol/L Carbon Dioxide (21-32) mmol/L Anion Gap (6-13) BUN (6-20) mg/dL Creatinine (0.4-1.0) mg/dL Estimated GFR (MDRD) (>89) Glucose (70-100) mg/dL POC Whole Bld Glucose 123 H 162 H (70 - 100) mg/dL Lactic Acid 1.3 (0.5-2.2) mmol/L Calcium (8.5-10.3) mg/dL 05/24/18 05/24/18 05/24/18 Range/Units 21:29 21:29 21:29 WBC (4.8-10.8) x10^3/uL RBC (4.20-5.40) 10^6/uL Hgb (12.0-16.0) g/dL Hct (37.0-47.0) % MCV (81.0-99.0) fL MCH (27.0-31.0) pg MCHC (32.0-36.0) g/dL RDW (12.0-15.0) % Plt Count (130-450) 10^3/uL MPV (7.9-10.8) fL Neut # (Auto) (1.5-6.6) 10^3/uL Lymph # (Auto) (1.5-3.5) 10^3/uL [place] # (Auto) (0.0-1.0) 10^3/uL Eos # (Auto) (0.0-0.7) 10^3/uL Baso # (Auto) (0.0-0.1) 10^3/uL Absolute Nucleated RBC x10^3/uL Nucleated RBC % /100WBC PT 22.2 H (9.9-12.6) secs INR 2.0 H (0.8-1.2) APTT 26.6 (24.9-33.3) secs Sodium 137 (135-145) mmol/L Potassium 3.5 (3.5-5.0) mmol/L Chloride 100 L (101-111) mmol/L Carbon Dioxide 28 (21-32) mmol/L Anion Gap 9.0 (6-13) BUN 35 H (6-20) mg/dL Creatinine 1.2 H (0.4-1.0) mg/dL Estimated GFR (MDRD) 43 L (>89) Glucose 196 H (70-100) mg/dL POC Whole Bld Glucose (70 - 100) mg/dL Lactic Acid (0.5-2.2) mmol/L Calcium 8.4 L (8.5-10.3) mg/dL //18 Range/Units 21:29 WBC 10.5 (4.8-10.8) x10^3/uL RBC 4.04 L (4.20-5.40) 10^6/uL Hgb 12.1 (12.0-16.0) g/dL Hct 37.2 (37.0-47.0) % MCV 92.0 (81.0-99.0) fL MCH 29.9 (27.0-31.0) pg MCHC 32.5 (32.0-36.0) g/dL RDW 15.2 H (12.0-15.0) % Plt Count 252 (130-450) 10^3/uL MPV 10.5 (7.9-10.8) fL Neut # (Auto) 8.5 H (1.5-6.6) 10^3/uL Lymph # (Auto) 1.3 L (1.5-3.5) 10^3/uL [place] # (Auto) 0.2 (0.0-1.0) 10^3/uL Eos # (Auto) 0.4 (0.0-0.7) 10^3/uL Baso # (Auto) 0.1 (0.0-0.1) 10^3/uL Absolute Nucleated RBC 0.03 x10^3/uL Nucleated RBC % 0.3 /100WBC PT (9.9-12.6) secs INR (0.8-1.2) APTT (24.9-33.3) secs Sodium (135-145) mmol/L Potassium (3.5-5.0) mmol/L Chloride (101-111) mmol/L Carbon Dioxide (21-32) mmol/L Anion Gap (6-13) BUN (6-20) mg/dL Creatinine (0.4-1.0) mg/dL Estimated GFR (MDRD) (>89) Glucose (70-100) mg/dL POC Whole Bld Glucose (70 - 100) mg/dL Lactic Acid (0.5-2.2) mmol/L Calcium (8.5-10.3) mg/dL ABX Reporting Has patient been on IV antibiotics over the past 48 hours?: Yes Assessment/Plan - Problem List (1) Acute respiratory failure with hypoxia Impression: resolved. due to pulmonary hemorrahge from tumor + lovenox transfer from ICU to med surg (2) Breast cancer metastasized to lung Impression: Breast cancer diagnosed in 2008. She received chemotherapy with multiple different chemotherapy agents and followed by oncology. At the end of April 2018 she was seen in the emergency room with a complaint of hemoptysis and workup showed a large lung mass. On further workup is felt to be metastatic disease from prior breast cancer. 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 She does have an IVC filter. Anticoagulation was delayed and the IVC filter was initially used for the DVT and PE because she had a subdural at that time and anticoagulation came later. Coumadin was discontinued and she was bridged with Lovenox as she was going to get a Port-A-Cath on May 26. She has had 3 doses of Lovenox and hemoptysis worsened Plan: port a cath is tomorrow. I have discussed with Lakhwinder Mendoza MD who will be the anesthesiologist We did wonder if she was able to be done today, but after discussion, want to wait until most of her hemoptysis clears. Anticipate dc after port a cath if no more sig bleeding. Qualifiers: Laterality: right Qualified Code(s): C50.911 - Malignant neoplasm of unspecified site of right female breast; C78.00 - Secondary malignant neoplasm of unspecified lung (3) Major hemoptysis Impression: At this point in time her bleeding seems to have slowed. Minimal specks of blood right now where she had handfuls of blood yesterday. She is now off anticoagulation. If the hemoptysis returns in a large amount, she would require transfer to [place] for either interventional radiology procedure or thoracic surgery procedure.
[2018-05-25] MEDS: INSULIN ASPART 300 UNIT/3 ML PEN SUBQ SCH ×2 (17:08→21:05)
[2018-05-25] MEDS: PRAVASTATIN 40 MG TABLET PO SCH (21:05)
[2018-05-25] MEDS ORDERED: SODIUM CHLORIDE 0.9% 500 ML IV ONE (23:36)
[2018-05-25] MEDS: SODIUM CHLORIDE 0.9% 500 ML IV PRN (23:37)
[2018-05-26] MEDS: SODIUM CHLORIDE FLUSH 0.9% 10 ML SYRINGE IVP SCH ×3 (01:39→17:29)
[2018-05-26] MEDS: CEFEPIME 1 GM in SODIUM CHLORIDE 0.9% MINIBAG 100 ML IV SCH ×2 (01:39→13:38)
[2018-05-26] MEDS: MORPHINE 2 MG/ML CARPUJECT IVP PRN ×3 (02:34→08:53)
[2018-05-26] MEDS: SODIUM CHLORIDE FLUSH 0.9% 10 ML SYRINGE IVP PRN ×4 (04:50→14:10)
[2018-05-26] MEDS: guaiFENesin/DEXTROMETHORPHAN 10 ML UDC PO SCH ×4 (06:13→23:49)
[2018-05-26] MEDS: PANTOPRAZOLE 40 MG VIAL IVP SCH (06:13)
[2018-05-26 06:14] LABS: INR 1.4 (0.8-1.2); PT - PROTHROMBIN TIME 15.4 secs (9.9-12.6)
[2018-05-26] MEDS: IPRATROPIUM/ALBUTEROL 3 ML NEB INH SCH ×2 (07:40→12:59)
[2018-05-26] MEDS: INSULIN ASPART 300 UNIT/3 ML PEN SUBQ SCH ×4 (08:38→21:15)
[2018-05-26] MEDS: VANCOMYCIN INJ 1 GM, VANCOMYCIN INJ 250 MG in SODIUM CHLORIDE 0.9% 250 ML IV SCH (09:36)
[2018-05-26] MEDS ORDERED: LACTATED RINGERS 1,000 ML IV ONE (11:41)
[2018-05-26] MEDS ORDERED: SODIUM CHLORIDE 0.9% 1,000 ML IV ONE (11:41)
[2018-05-26] MEDS ORDERED: BUPIVACAINE 0.5% PF 30 ML VIAL INFIL ONE ×2 (12:00)
[2018-05-26] MEDS ORDERED: KETAMINE 500 MG/10 ML VIAL IVP ONE (12:13)
[2018-05-26] MEDS ORDERED: LIDOCAINE-MPF 2% 5 ML VIAL IM ONE (12:13)
[2018-05-26] MEDS ORDERED: MIDAZOLAM 2 MG/2 ML VIAL IVP ONE (12:13)
[2018-05-26] MEDS ORDERED: fentaNYL 100 MCG/2 ML VIAL IVP ONE (12:13)
[2018-05-26] MEDS ORDERED: ePHEDrine 50 MG/ML VIAL IVP ONE (12:13)
[2018-05-26] MEDS ORDERED: PROPOFOL 200 MG/20 ML VIAL IVP ONE (12:13)
--- NOTE | 2018-05-26 12:23 | OPERATIVE REPORT ---
Operative Report - General Admit Date: 05/25/18 Procedure Date: 05/26/18 Planned Procedure: Port-A-Cath placement Pre-Op Diagnosis: Metastatic breast cancer Procedure Performed: Port-A-Cath placement in the left subclavian position Post Op Diagnosis: Same. - Procedure Note Primary Surgeon: Lakhwinder Ferreira MD Anesthesia Provider: Shanae Laughlin CRNA Anesthesia Technique: Local (15 mL of half percent Marcaine), MAC IV Fluids (mL): 350 Estimated Blood Loss (mL): 5 Complications: None. - Other Other Information/Narrative: OPERATIVE DESCRIPTION/REPORT: After verbal and written informed consent was obtained detailing the risks of infection, bleeding requiring transfusion with its risks, nerve injury, and , and after I met with the patient confirming the surgery and the site of the surgery, the patient was brought to the operative suite and placed supine on the operating table. Great care was taken to avoid pressure points to prevent pressure necrosis or nerve injury. Monitoring devices were applied along with TEDs and pneumatic compressive stockings (to prevent DVT). The patient received preoperative antibiotics for surgical prophylaxis. Shanae Laughlin CRNA sedated and anesthetized the patient for the entire procedure. The patient was prepped and draped in the usual sterile manner. A "time in" then confirmed that the patient was identified with 3 identifiers (name, date and medical record number), the history and physical was in the chart, the signed consent confirming the procedure was in the chart, the patient was in the correct position, the aforementioned prophylactic measures were in place or given, we had the correct personnel and equipment to complete the procedure and that anesthesia, surgery and nursing were given an opportunity to express any concerns. With the agreement of everyone in the room, we proceeded with the operation. After the subclavian region was anesthetized using % marcaine and the patient placed in Trendelenberg position, an [employer] Smartport kit (Catalog #[id number], Lot #[id number]) was opened. The finder needle was inserted into the subclavian vein taking great care to place it just under the clavicle in order to minimize the risk of pneumothorax. When good venous blood return was obtained, the wire was placed through the needle and into the vein without difficulty. Cardiac irritability confirmed that the catheter was correctly going down towards the heart. Below and lateral to the needle insertion site, the area was anesthetized again using % marcaine and a transverse incision was made just large enough to accommodate the port. This incision was taken down to the fascia using sharp dissection and the area for the port was created using blunt downward dissection. Meticulous hemostasis was obtained using Bovie electrocautery. A knife was inserted along the wire to widen the insertion site and this was further dilated using a Candice. The port was flushed with heparinized saline and placed in the pouch and the catheter was then passed to the needle opening using the passer. The catheter was then measured against the patients anterior chest and cut so that the tip would lie 2 cm below the manubrial-sternal junction. The port was secured to the fascia using a 3-0 Prolene on the side of the opening of the port. The catheter was then wiped and wrapped with a heparinized soaked 4x4. The dilator and sheath were then carefully inserted over the wire and the dilator and wire withdrawn. The catheter was then inserted into the sheath and the sheath was broken away from the catheter leaving the catheter in place in the vein. An X-ray confirmed placement of the catheter tip in the right atrium/supracardiac vena cava without pneumothorax. Using a Hueber needle the port was accessed and good blood return as well as easy flush was noted. The subcutaneous tissue was approximated using 3-0 Vicryl and the skin incisions were approximated with 4-0 Monocryl in a subcuticular fashion. The skin prep was washed off and prepped with benzoin. Steristrips were applied. At this point a time out was performed that confirmed that all the counts were correct, the procedure that was performed, the blood loss, the IV fluids administered, and the patients condition. A dressing was placed on the wound. Having tolerated the procedure well, the patient was taken to short stay in good and stable condition. The patient was instructed that the Portacath could be used immediately. treadalong disclaimer: This document was created in part using voice recognition technology. Because of the inherent limitations of the system ([employer]'s treadalong Dictate user manual states that the licensee understands that speech recognition is a statistical process and that recognition errors are inherent in the process), occasional same sounding word substitutions and grammatical errors do occur and persist despite proofreading. Please read this document for context.
--- NOTE | 2018-05-26 12:53 | XRAY Report ---
Reason: PORTACATH PLACEMENT Procedure Date: 05/26/2018 Accession Number: [id number] / [id number] Procedure: XR - Chest for Line Placement CPT Code: FULL RESULT: EXAM: CHEST RADIOGRAPHY EXAM DATE: 05/26/2018 12:26 PM. CLINICAL HISTORY: Port-A-Cath placement. COMPARISON: CHEST 2 VIEW 05/21/2018 12:22 PM CHEST 2 VIEW 05/12/2018 9:48 PM. TECHNIQUE: 1 view. FINDINGS: Lungs/Pleura: There has been interval worsening of nearly confluent airspace opacity of the right upper lobe. Remaining lungs are hypo-expanded with areas of scattered subsegmental atelectasis. Possible trace left effusion. No extraventilatory air. Mediastinum: Within exam limitations, the cardiomediastinal contour is normal. Stable fractures of the first, fourth, and sixth median sternotomy wires. Other: There is a left subclavian approach Port-A-Cath catheter tip of which likely terminates in the high right atrium. IMPRESSION: 1. New left subclavian Port-A-Cath tip likely in the high right atrium. Otherwise, no postoperative complication. 2. Worsening airspace opacity right upper lobe favoring a lobar pneumonia. RADIA
[2018-05-26] MEDS: METOPROLOL SUCCINATE 25 MG TABLET PO SCH ×2 (13:24→21:08)
[2018-05-26] MEDS: ALLOPURINOL 100 MG TABLET PO SCH (13:25)
[2018-05-26] MEDS: VENLAFAXINE 37.5 MG TABLET PO SCH ×2 (13:27→21:09)
[2018-05-26] MEDS: POLYETHYLENE GLYCOL 3350 17 GM PACKET PO SCH (13:28)
--- NOTE | 2018-05-26 19:04 | PROVIDER PROGRESS NOTE ---
Assessment/Plan - Problem List (1) Acute respiratory failure with hypoxia Assessment/Plan: Likely due to pulmonary hemorrahge from tumor + Coumadin as well as pneumonia Resolving as patient down from 5L of O2 to RA Continue IV abx for pneumonia as CXR today showing right lung lobar pneumonia (2) Pneumonia Impression: Patient presented with acute respiratory failure with hypoxia and hemoptysis. The patient has a history of lung cancer and likely had pulmonary hemorrhage due to being on Coumadin for history of PE and DVT. The patient's Coumadin was discontinued and hemoptysis has decreased. The patient's CT angios of the chest showed no evidence of PE. The patient's chest x-ray today shows worsening airspace opacity right upper lobe favoring a lobar pneumonia. Patient will be continued on IV antibiotics. Given her history of lung cancer she will be continued on broad-spectrum IV antibiotics with vancomycin and cefepime. We will continue to monitor for 1 more day if patient continues to be on room air and has continued improvement we will consider discharging patient tomorrow. (3) Breast cancer metastasized to lung Impression: Breast cancer diagnosed in 2008. She received chemotherapy with multiple d ifferent chemotherapy agents and followed by oncology. At the end of April 2018 she was seen in the emergency room with a complaint of hemoptysis and workup showed a large lung mass. On further workup is felt to be metastatic disease from prior breast cancer. 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 She does have an IVC filter. Anticoagulation was delayed and the IVC filter was initially used for the DVT and PE because she had a subdural at that time and anticoagulation came later. Coumadin was discontinued and she was bridged with Lovenox as she was going to get a Port-A-Cath on May 26. She has had 3 doses of Lovenox and hemoptysis worsened Patient received Port-A-Cath today. Patient's INR down to 1.5. Patient's Coumadin and Lovenox were discontinued. Patient will receive chemotherapy with Taxol tomorrow prior to discharge. Qualifiers: Laterality: right Qualified Code(s): C50.911 - Malignant neoplasm of unspecified site of right female breast; C78.00 - Secondary malignant neoplasm of unspecified lung (4) Hemoptysis Impression: Likely secondary to lung cancer and anticoagulation Anticoagulation stopped Hemoptysis is significantly improved Continue to monitor (5) History of DVT/PE Impression: Patient was previously on Coumadin which was initially stopped for placement of Port-A-Cath. While on Lovenox patient had increasing hemoptysis therefore Lovenox was stopped. Given patient's hemoptysis in setting of lung cancer we will stop anticoagulation in the future after discussion with patient about risk versus benefit. - Current Meds Current Meds: Current Medications Generic Name Dose Route Start Last Admin Trade Name Freq PRN Reason Stop Dose Admin Acetaminophen 1,000 mg 05/25/18 01:05 05/25/18 18:13 Tylenol PO 1,000 mg Q6H PRN Administration Pain 1 to 4 Albuterol/Ipratropium 3 ml 05/25/18 01:00 05/26/18 12:59 Duoneb INH 3 ml RTQID [facility] Administration Allopurinol 150 mg 05/25/18 09:00 05/26/18 13:25 Zyloprim PO 150 mg DAILY [facility]ENCE Administration Guaifenesin 10 ml 05/25/18 02:00 05/26/18 17:29 Robitussin Dm PO 10 ml Q6HR [facility]ENCE Administration Cefepime HCl 1 gm/ Sodium 100 mls @ 200 mls/hr 05/25/18 02:00 05/26/18 14:08 Chloride IV Infused Q12H [facility] Infusion Vancomycin HCl 1 gm/ 250 mls @ 167 mls/hr 05/26/18 09:00 05/26/18 11:06 Vancomycin HCl 250 mg/ Sodium IV Infused Chloride Q24H [facility] Infusion Sodium Chloride 500 mls @ 20 mls/hr 05/25/18 23:36 05/26/18 17:28 Normal Saline 0.9% IV Infused Q24H PRN Infusion TKO RATE TKO Insulin Aspart 1 - 5 unit 05/25/18 17:00 05/26/18 17:27 Novolog SUBQ Not Given 0800,1200,1700,2100 [facility] Protocol Metoprolol Succinate 25 mg 05/25/18 21:00 05/26/18 13:24 Toprol Xl PO 25 mg BID [facility]ENCE Administration Morphine Sulfate 2 mg 05/25/18 00:53 05/26/18 08:53 Morphine (Carpuject) IVP 2 mg Q2HR PRN Administration Pain 8 to 10 Pantoprazole Sodium 40 mg 05/25/18 00:53 05/26/18 06:13 Protonix IVP 40 mg QDAC [facility]ENCE Administration Polyethylene Glycol 17 gm 05/25/18 09:00 05/26/18 13:28 Miralax PO 17 gm DAILY [facility]ENCE Administration Pravastatin Sodium 40 mg 05/25/18 21:00 05/25/18 21:05 Pravachol PO 40 mg QPM [facility]ENCE Administration Sodium Chloride 10 ml 05/25/18 00:53 05/26/18 14:10 Normal Saline Flush 0.9% IVP 10 ml PRN PRN Administration NEEDED PER PROVIDER ORDERS Sodium Chloride 10 ml 05/25/18 01:00 05/26/18 17:29 Normal Saline Flush 0.9% IVP 10 ml 0100,0900,1700 [facility]ENCE Administration Venlafaxine HCl 37.5 mg 05/25/18 09:00 05/26/18 13:27 Effexor PO 37.5 mg BID LAWRENCE Administration - Lab Result Lab results reviewed: Yes Fish Bone Diagrams: 05/24/18 21:29 05/24/18 21:29 Other Lab Results: Laboratory Results WBC 10.5 x10^3/uL (4.8-10.8) 05/24/18 21:29 RBC 4.04 10^6/uL (4.20-5.40) L 05/24/18 21:29 Hgb 12.1 g/dL (12.0-16.0) 05/24/18 21:29 Hct 37.2 % (37.0-47.0) 05/24/18 21:29 MCV 92.0 fL (81.0-99.0) 05/24/18 21:29 MCH 29.9 pg (27.0-31.0) 05/24/18 21:29 MCHC 32.5 g/dL (32.0-36.0) 05/24/18 21:29 RDW 15.2 % (12.0-15.0) H 05/24/18 21:29 Plt Count 252 10^3/uL (130-450) 05/24/18 21:29 MPV 10.5 fL (7.9-10.8) 05/24/18 21:29 Neut # (Auto) 8.5 10^3/uL (1.5-6.6) H 05/24/18 21:29 Lymph # (Auto) 1.3 10^3/uL (1.5-3.5) L 05/24/18 21:29 Cooke # (Auto) 0.2 10^3/uL (0.0-1.0) 05/24/18 21:29 Eos # (Auto) 0.4 10^3/uL (0.0-0.7) 05/24/18 21:29 Baso # (Auto) 0.1 10^3/uL (0.0-0.1) 05/24/18 21:29 Absolute Nucleated RBC 0.03 x10^3/uL 05/24/18 21:29 Nucleated RBC % 0.3 /100WBC 05/24/18 21:29 PT 15.4 secs (9.9-12.6) H 05/26/18 05:20 INR 1.4 (0.8-1.2) H 05/26/18 05:20 Whole Blood INR 1.5 (0.8-1.2) H 05/25/18 19:00 APTT 26.6 secs (24.9-33.3) 05/24/18 21:29 Sodium 137 mmol/L (135-145) 05/24/18 21:29 Potassium 3.5 mmol/L (3.5-5.0) 05/24/18 21:29 Chloride 100 mmol/L (101-111) L 05/24/18 21:29 Carbon Dioxide 28 mmol/L (21-32) 05/24/18 21:29 Anion Gap 9.0 (6-13) 05/24/18 21:29 BUN 35 mg/dL (6-20) H 05/24/18 21:29 Creatinine 1.2 mg/dL (0.4-1.0) H 05/24/18 21:29 Estimated GFR (MDRD) 43 (>89) L 05/24/18 21:29 Glucose 196 mg/dL (70-100) H 05/24/18 21:29 POC Whole Bld Glucose 138 mg/dL (70 - 100) H 05/26/18 16:58 Lactic Acid 1.3 mmol/L (0.5-2.2) 05/24/18 22:00 Calcium 8.4 mg/dL (8.5-10.3) L 05/24/18 21:29 - Diagnostic Imaging Results Diagnostic Imaging Results: Final report reviewed - Additional Planning Condition/Complexity: Guarded My Orders: My Active Orders 05/26/18 14:17 O2 [Oxygen Desat. Study w/Exercise] [RC] .ONCE Plan Discussed with:: Patient, Family Time Spent: 31-60 minutes Subjective - Subjective Patient Reports: Cough (With mild hemoptysis), Shortness of Breath (With exertion) Nursing Reports: No Complaints Objective Vital Signs: Vital Signs - 24 hr 05/25/18 05/25/18 05/25/18 19:10 20:00 20:30 Temperature 36.9 C Heart Rate 96 Heart Rate [ 96 97 Brachial] Respiratory 24 21 24 Rate Blood Pressure 133/69 H 132/58 H [Right Brachial artery] O2 Saturation 97 93 05/25/18 05/25/18 05/25/18 21:00 22:00 23:00 Temperature Heart Rate Heart Rate [ 97 99 97 Brachial] Respiratory 26 H 27 H 27 H Rate Blood Pressure 124/63 134/53 H 138/62 H [Right Brachial artery] O2 Saturation 92 93 05/26/18 05/26/18 05/26/18 00:00 01:00 02:00 Temperature 37.4 C Heart Rate Heart Rate [ 102 H 94 100 Brachial] Respiratory 19 25 H Rate Blood Pressure 148/72 H 133/63 H 149/74 H [Right Brachial artery] O2 Saturation 97 96 97 05/26/18 05/26/18 05/26/18 03:00 04:00 05:00 Temperature 36.8 C Heart Rate Heart Rate [ 91 91 90 Brachial] Respiratory 26 H Rate Blood Pressure 129/63 127/67 140/64 H [Right Brachial artery] O2 Saturation 97 97 96 05/26/18 05/26/18 05/26/18 06:00 07:10 07:32 Temperature 37 C Heart Rate Heart Rate [ 91 98 Brachial] Respiratory 22 24 Rate Blood Pressure 142/70 H 145/66 H [Right Brachial artery] O2 Saturation 98 97 05/26/18 05/26/18 05/26/18 07:40 08:30 09:00 Temperature Heart Rate 100 Heart Rate [ 99 100 Brachial] Respiratory 20 25 H 19 Rate Blood Pressure 133/60 H 136/60 H [Right Brachial artery] O2 Saturation 93 91 L 05/26/18 05/26/18 05/26/18 10:00 11:00 12:23 Temperature 37.2 C 36.5 C Heart Rate Heart Rate [ 103 H 99 103 H Brachial] Respiratory 21 18 20 Rate Blood Pressure 132/63 H 136/66 H 139/62 H [Right Brachial artery] O2 Saturation 93 98 89 L 05/26/18 05/26/18 05/26/18 12:59 13:00 14:00 Temperature Heart Rate 102 H Heart Rate [ 105 H 107 H Brachial] Respiratory 20 20 20 Rate Blood Pressure 143/70 H 138/69 H [Right Brachial artery] O2 Saturation 99 96 05/26/18 05/26/18 05/26/18 15:00 16:00 17:00 Temperature Heart Rate Heart Rate [ 107 H 94 103 H Brachial] Respiratory 21 21 21 Rate Blood Pressure 122/61 130/60 141/69 H [Right Brachial artery] O2 Saturation 95 93 Oxygen O2 Source [With Activity] Room air O2 Source [Without Activity] Room air O2 Source Room air I&O (Last 24 Hrs): Intake and Output Totals x24h 05/24/18 05/25/18 05/26/18 23:59 23:59 23:59 Intake Total 2580 1252.333 Output Total 1300 1300 Balance 1280 -47.667 General: Alert, Oriented x3, Cooperative, No acute distress HEENT: Atraumatic, PERRLA, EOMI, Mucous membr. moist/pink Neck: Supple, No JVD, No thyromegaly, +2 carotid pulse wo bruit Lymphatic: no adenopathy Neuro: Alert, Non Focal, CN 2-12 Grossly Intact, Oriented Times 3 Cardiovascular: Regular rate, Normal S1, Normal S2 Respiratory: Chest non-tender, Rhonchi (Right upper lobe) Abdomen: Normal bowel sounds, Soft, No tenderness, No hepatospenomegaly Extremities: No clubbing, No cyanosis, No edema, Normal pulses, No tenderness/swelling Skin: No rashes, No breakdown - Results Results: Laboratory Results WBC 10.5 x10^3/uL (4.8-10.8) 05/24/18 21:29 RBC 4.04 10^6/uL (4.20-5.40) L 05/24/18 21:29 Hgb 12.1 g/dL (12.0-16.0) 05/24/18 21:29 Hct 37.2 % (37.0-47.0) 05/24/18 21: MCV 92.0 fL (81.0-99.0) 05/24/18 21: MCH 29.9 pg (27.0-31.0) 05/24/18 21: MCHC 32.5 g/dL (32.0-36.0) 05/24/18 21: RDW 15.2 % (12.0-15.0) H 05/24/18 21:29 Plt Count 252 10^3/uL (130-450) 05/24/18 21: MPV 10.5 fL (7.9-10.8) 05/24/18 21: Neut # (Auto) 8.5 10^3/uL (1.5-6.6) H 05/24/18 21: Lymph # (Auto) 1.3 10^3/uL (1.5-3.5) L 05/24/18 21: Cooke # (Auto) 0.2 10^3/uL (0.0-1.0) 05/24/18 21: Eos # (Auto) 0.4 10^3/uL (0.0-0.7) 05/24/18 21: Baso # (Auto) 0.1 10^3/uL (0.0-0.1) 05/24/18 21: Absolute Nucleated RBC 0.03 x10^3/uL 05/24/18 21: Nucleated RBC % 0.3 /100WBC 05/24/18 21: PT 15.4 secs (9.9-12.6) H 05/26/18 05:20 INR 1.4 (0.8-1.2) H 05/26/18 05:20 Whole Blood INR 1.5 (0.8-1.2) H 05/25/18 19:00 APTT 26.6 secs (24.9-33.3) 05/24/18 21:29 Sodium 137 mmol/L (135-145) 05/24/18 21:29 Potassium 3.5 mmol/L (3.5-5.0) 05/24/18 21: Chloride 100 mmol/L (101-111) L 05/24/18 21:29 Carbon Dioxide 28 mmol/L (21-32) 05/24/18 21:29 Anion Gap 9.0 (6-13) 05/24/18 21:29 BUN 35 mg/dL (6-20) H 05/24/18 21:29 Creatinine 1.2 mg/dL (0.4-1.0) H 05/24/18 21:29 Estimated GFR (MDRD) 43 (>89) L 05/24/18 21:29 Glucose 196 mg/dL (70-100) H 05/24/18 21:29 POC Whole Bld Glucose 138 mg/dL (70 - 100) H 05/26/18 16:58 Lactic Acid 1.3 mmol/L (0.5-2.2) 05/24/18 22:00 Calcium 8.4 mg/dL (8.5-10.3) L 05/24/18 21:29 - Procedures Procedures: Procedures TRANSFUSE NONAUT RED BLOOD CELLS IN PERIPH VEIN, PERC (10/18/16) ABX Reporting Has patient been on IV antibiotics over the past 48 hours?: Yes Current Medications - Current Medications Current Medications: Active Medications Generic Name Dose Route Start Last Admin Trade Name Freq PRN Reason Stop Dose Admin Acetaminophen 1,000 mg 05/25/18 01:05 05/25/18 18:13 Tylenol PO 1,000 mg Q6H PRN Administration Pain 1 to 4 Albuterol 2.5 mg 05/25/18 08:57 INH Q6H PRN Wheezing Albuterol/Ipratropium 3 ml 05/25/18 01:00 05/26/18 12:59 Duoneb INH 3 ml RTQID [facility]ENCE Administration Allopurinol 150 mg 05/25/18 09:00 05/26/18 13:25 Zyloprim PO 150 mg DAILY [facility]ENCE Administration Docusate Sodium 100 mg 05/25/18 01:05 Colace 100mg Capsule PO BID PRN Constipation Guaifenesin 10 ml 05/25/18 02:00 05/26/18 17:29 Robitussin Dm PO 10 ml Q6HR [facility]ENCE Administration Cefepime HCl 1 gm/ Sodium 100 mls @ 200 mls/hr 05/25/18 02:00 05/26/18 14:08 Chloride IV Infused Q12H [facility] Infusion Vancomycin HCl 0.001 gm/ 250 mls @ 167 mls/hr 05/25/18 05:00 Sodium Chloride IV .perpharmacy PRN PER PHARMACY Vancomycin HCl 1 gm/ 250 mls @ 167 mls/hr 05/26/18 09:00 05/26/18 11:06 Vancomycin HCl 250 mg/ Sodium IV Infused Chloride Q24H [facility]ENCE Infusion Sodium Chloride 500 mls @ 20 mls/hr 05/25/18 23:36 05/26/18 17:28 Normal Saline 0.9% IV Infused Q24H PRN Infusion TKO RATE TKO Insulin Aspart 1 - 5 unit 05/25/18 17:00 05/26/18 17:27 Novolog SUBQ Not Given 0800,1200,1700,2100 [facility] Protocol Metoprolol Succinate 25 mg 05/25/18 21:00 05/26/18 13:24 Toprol Xl PO 25 mg BID LAWRENCE Administration Morphine Sulfate 2 mg 05/25/18 00:53 05/26/18 08:53 Morphine (Carpuject) IVP 2 mg Q2HR PRN Administration Pain 8 to 10 Ondansetron HCl 4 mg 05/25/18 00:53 Zofran Inj IVP Q6HR PRN Nausea / Vomiting Oxycodone HCl 5 - 10 mg 05/25/18 08:58 Roxicodone PO Q4H PRN PAIN Pantoprazole Sodium 40 mg 05/25/18 00:53 05/26/18 06:13 Protonix IVP 40 mg QDAC [facility]ENCE Administration Polyethylene Glycol 17 gm 05/25/18 09:00 05/26/18 13:28 Miralax PO 17 gm DAILY LA[facility]ENCE Administration Pravastatin Sodium 40 mg 05/25/18 21:00 05/25/18 21:05 Pravachol PO 40 mg QPM LAWRENCE Administration Sodium Chloride 10 ml 05/25/18 00:53 05/26/18 14:10 Normal Saline Flush 0.9% IVP 10 ml PRN PRN Administration NEEDED PER PROVIDER ORDERS Sodium Chloride 10 ml 05/25/18 01:00 05/26/18 17:29 Normal Saline Flush 0.9% IVP 10 ml 0100,0900,1700 [facility] Administration Venlafaxine HCl 37.5 mg 05/25/18 09:00 05/26/18 13:27 Effexor PO 37.5 mg BID LAWRENCE Administration Allopurinol [Zyloprim] 150 mg PO DAILY 11/16/12 Metoprolol Succinate [Toprol Xl] 25 mg PO DAILY 11/16/12 Potassium Chloride [K-Tab ER] 10 meq PO DAILYWM 11/16/12 Furosemide 40 mg PO DAILY 10/17/16 Insulin Glargine [Lantus] 15 units SUBQ QPM 10/17/16 Lisinopril [Zestril] 5 mg PO DAILY 10/17/16 Pantoprazole Sodium 40 mg PO QDAC 10/17/16 Pravastatin [Pravachol] 40 mg PO QPM 10/18/16 Venlafaxine HCl 37.5 mg PO BID 10/18/16 Tamoxifen Citrate 20 mg PO DAILY 12/17/17 Alendronate [Fosamax] 70 mg PO Q7D 05/12/18 Aspirin [Adult Aspirin Regimen] 81 mg PO DAILY 05/18/18 Calcium Carbonate/Vitamin D3 [Calcium 600-Vit D3 800 Tablet] 1 tab PO BID 05/09 Multivitamin/Iron/Folic Acid [Centrum Adults Tablet] 1 each PO DAILY 05/18/18 Acetaminophen [Tylenol Extra Strength] 1,000 mg PO BID PRN 05/25/18 Anastrozole 1 mg PO DAILY 05/25/18 Ondansetron HCl [Zofran] 4 mg PO Q4H PRN 05/25/18 Prochlorperazine Maleate 10 mg PO Q6H PRN 05/25/18 Sitagliptin Phosphate [Januvia] 50 mg PO DAILY 05/25/18 Warfarin Sodium 2.5 mg PO DAILY 05/25/18
[2018-05-26] MEDS: ACETAMINOPHEN 500 MG TABLET PO PRN (20:23)
[2018-05-26] MEDS: PRAVASTATIN 40 MG TABLET PO SCH (21:08)
[2018-05-27] MEDS: IPRATROPIUM/ALBUTEROL 3 ML NEB INH SCH ×4 (00:03→15:42)
[2018-05-27] MEDS: CEFEPIME 1 GM in SODIUM CHLORIDE 0.9% MINIBAG 100 ML IV SCH ×2 (01:55→14:05)
[2018-05-27] MEDS: SODIUM CHLORIDE FLUSH 0.9% 10 ML SYRINGE IVP SCH (01:56)
[2018-05-27] MEDS: ACETAMINOPHEN 500 MG TABLET PO PRN (05:36)
[2018-05-27] MEDS: guaiFENesin/DEXTROMETHORPHAN 10 ML UDC PO SCH ×3 (05:36→17:32)
[2018-05-27] MEDS: PANTOPRAZOLE 40 MG VIAL IVP SCH (06:44)
[2018-05-27 06:52] LABS: BASOPHILS # (AUTO) 0.1 10^3/uL (0.0-0.1); BASOPHILS % (AUTO) 1.2 %; EOSINOPHILS # (AUTO) 0.3 10^3/uL (0.0-0.7); EOSINOPHILS % (AUTO) 4.1 %; HGB - HEMOGLOBIN 9.3 g/dL (12.0-16.0); LYMPHOCYTES # (AUTO) 1.1 10^3/uL (1.5-3.5); LYMPHOCYTES % (AUTO) 13.8 %; MEAN CORPUSCULAR HEMOGLOBIN 30.5 pg (27.0-31.0); MEAN CORPUSCULAR HGB CONC 33.1 g/dL (32.0-36.0); MEAN PLATELET VOLUME 9.6 fL (7.9-10.8); MONOCYTES # (AUTO) 0.4 10^3/uL (0.0-1.0); MONOCYTES % (AUTO) 5.4 %; NEUTROPHILS # (AUTO) 5.8 10^3/uL (1.5-6.6); NEUTROPHILS % (AUTO) 75.5 %; PLT - PLATELET COUNT 225 10^3/uL (130-450); RED BLOOD COUNT 3.04 10^6/uL (4.20-5.40); RED CELL DISTRIBUTION WIDTH 15.3 % (12.0-15.0); WHITE BLOOD COUNT 7.7 x10^3/uL (4.8-10.8)
[2018-05-27 07:07] LABS: ALBUMIN 2.4 g/dL (3.2-5.5); ALBUMIN/GLOBULIN RATIO 0.7 (1.0-2.2); ALKALINE PHOSPHATASE 39 IU/L (42-121); ALT ALANINE AMINOTRANSFERASE 13 IU/L (10-60); AST ASPARTATE AMINOTRANSFERASE 18 IU/L (10-42); BILIRUBIN,TOTAL 0.7 mg/dL (0.2-1.0); BUN - BLOOD UREA NITROGEN 24 mg/dL (6-20); CALCIUM 7.6 mg/dL (8.5-10.3); CARBON DIOXIDE - CO2 26 mmol/L (21-32); CHLORIDE 106 mmol/L (101-111); GFR - MDRD 53 (>89); GLUCOSE 173 mg/dL (70-100); MAGNESIUM 1.3 mg/dL (1.7-2.8); PHOSPHORUS 2.1 mg/dL (2.5-4.6); SODIUM 138 mmol/L (135-145); TOTAL PROTEIN 5.7 g/dL (6.7-8.2)
[2018-05-27 07:11] LABS: VBG PH 7.337 (7.31-7.41)
[2018-05-27] MEDS: METOPROLOL SUCCINATE 25 MG TABLET PO SCH (08:55)
[2018-05-27] MEDS: ALLOPURINOL 100 MG TABLET PO SCH (08:56)
[2018-05-27] MEDS: NEUTRA-PHOS 250 MG TABLET PO SCH ×3 (08:56→17:31)
[2018-05-27] MEDS: INSULIN ASPART 300 UNIT/3 ML PEN SUBQ SCH ×3 (08:58→17:33)
[2018-05-27] MEDS: SODIUM CHLORIDE FLUSH 0.9% 10 ML SYRINGE IVP PRN ×5 (08:59→15:37)
[2018-05-27] MEDS: VENLAFAXINE 37.5 MG TABLET PO SCH (08:59)
[2018-05-27] MEDS: POLYETHYLENE GLYCOL 3350 17 GM PACKET PO SCH (09:00)
[2018-05-27] MEDS ORDERED: SODIUM CHLORIDE FLUSH 0.9% 10 ML SYRINGE IVP PRN (09:07)
[2018-05-27] MEDS: VANCOMYCIN INJ 1 GM, VANCOMYCIN INJ 250 MG in SODIUM CHLORIDE 0.9% 250 ML IV SCH (09:22)
[2018-05-27] MEDS: SODIUM CHLORIDE 0.9% 500 ML IV PRN (09:24)
[2018-05-27] MEDS ORDERED: MAGNESIUM OXIDE 400 MG TABLET PO SCH (10:00)
[2018-05-27] MEDS ORDERED: WATER FOR INJECTION,STERILE 10 ML ONE (10:28)
[2018-05-27] MEDS ORDERED: ALTEPLASE 2 MG VIAL IC ONE (10:30)
[2018-05-27] MEDS ORDERED: FAMOTIDINE IV 20 MG/50 ML IV SCH (11:00)
[2018-05-27] MEDS ORDERED: ONDANSETRON 4 MG/2 ML VIAL IVP ONE (11:15)
[2018-05-27] MEDS ORDERED: DEXAMETHASONE 10 MG/ML VIAL IVP ONE (11:15)
[2018-05-27] MEDS ORDERED: diphenhydrAMINE INJ 50 MG/ML VIAL IVP ONE (11:15)
--- NOTE | 2018-05-27 11:56 | ONCOLOGY / HEMATOLOGY ---
DATE OF SERVICE: 05/27/2018 Physician: Darya Lo, [employer], [place], [facility] DIAGNOSES 1. Metastatic breast cancer to the right lung. a. Initial treatment with AC followed by Taxol in 02/2009. b. 5 years of Arimidex. 2. Metastatic lung cancer, initially diagnosed in 10/2016. a. Anastrozole daily with good response. b. Weekly Taxol started 05/2018. CHIEF COMPLAINT/REASON FOR VISIT: This patient was in the ED in April with hemoptysis and found the lung spot was significantly larger, and it was decided to initiate treatment with single agent paclitaxel. She received her first dose on 05/20/2018, and on Friday05/24/2018, she was admitted to the hospital as an inpatient with hemoptysis and respiratory distress. As of 05/26/2018, the hemoptysis was stopped with reversal of her Lovenox, and she also had her port placed in her left upper chest on 05/26/2018 as scheduled. When they tried accessing the port late on 05/26/2018, there was no blood return, though the placement was verified yesterday at the time of surgery. The hospitalist is ordering TPA today because of no blood return. Yesterday a lobular pneumonia with also identified, and treatment was started with cefepime and vancomycin. PHYSICAL EXAMINATION: She is currently on room air and sitting up in the chair, alert and oriented and feeling much better. VITAL SIGNS: Her most recent vital signs this morning, she is afebrile at 37, heart rate 95, blood pressure 117/59, respiratory rate 26, currently on room air. LUNGS: She has rhonchi in her right lung, clear, with occasional crackles in her left. LYMPHATIC: No lymphadenopathy in her neck or supraclavicular area. Port is placed in the upper left chest, lymph. HEENT: Oral mucosa is pink and moist. No open areas. Denies any ulcerations or pain. EDEMA: No lower extremity edema. ABDOMEN: Soft, nontender. Denies diarrhea or constipation. No nausea or vomiting. NEUROLOGIC: Oriented to place and time, and alert and oriented. LABORATORY DATA: WBC 7.7, hemoglobin 9.3, hematocrit 28.0, platelet count 225,000, neutrophils are 5.8. PLAN 1. I reviewed counts with the oncologist yesterday, and given that her labs are stable and she is feeling well, treatment should continue to potentially control her lung cancer and hemoptysis. The patient and spouse are very willing and anxious to continue with treatment, and the plan will be to potentially go home after she receives her treatment this afternoon, and continue with oral antibiotics. 2. Port obstruction. The TPA is to be used today prior to her chemo, and the oncology nurse will go over and give her the Taxol today. 3. Care coordination: She will return on 06/03/2018 for her third week of Taxol, and on 06/10/2017 for treatment, and then will followup with the doctor on 06/17/2017 with treatment and followup visit. A total of 30 minutes was spent with the patient, with more than 50% of the time [id number] counseling and coordinating her care. cc: Taj Coyle MD TD: 05/27/2018 11:43 MTDD
[2018-05-27] MEDS ORDERED: SODIUM CHLORIDE FLUSH 0.9% 10 ML SYRINGE ONE (13:47)
[2018-05-27] MEDS ORDERED: IOPAMIDOL-370 100 ML VIAL ONE (14:00)
[2018-05-27] MEDS ORDERED: IOVERSOL 320 100 ML VIAL IVP ONE ×3 (14:02→16:08)
--- NOTE | 2018-05-27 15:52 | XRAY Report ---
Reason: Port patency Procedure Date: 05/27/2018 Accession Number: [id number] / [id number] Procedure: [place] - Fluoro Independent Procedure CPT Code: FULL RESULT: EXAM: FLUOROSCOPIC GUIDANCE EXAM DATE: 05/27/2018 03:06 PM. CLINICAL HISTORY: Port patency. COMPARISON: None. FINDINGS: There is extravasation around the port hub, with nonfilling of the port catheter suggesting that the access needle is not fully engaged with the port device. Initially, the distal catheter was imaged followed by the port hub, at which point extravasation was already present. Due to superimposed contrast it was not possible to confirm non-engagement of the access needle during the study. IMPRESSION: Fluoroscopic guidance provided for port patency check. Total fluoroscopy time: 41 seconds. Number of images: 4. Contrast: 7 cc Optiray 320. RADIA
--- NOTE | 2018-05-27 17:37 | Discharge Plan ---
Discharge Plan Disposition: Home, Self Care Condition: Fair Prescriptions: Levofloxacin [Levaquin] 750 mg PO DAILY #7 tablet Diet: Diabetic Activity Restrictions: Activity as Tolerated Shower Restrictions: No Driving Restrictions: No Assistance Devices: Walker Weight Bearing: Full Weight Instruction Topics: Paclitaxel injection, Care Palliative, ED Hemoptysis Additional Instructions or Follow Up instructions: You presented to the emergency department coughing up blood. Which was thought to be due to hemorrhaging in the lungs from tumor. You were on Coumadin which was likely contributing and was stopped during the hospitalization. Your hemoptysis or coughing up of blood did improve through the hospitalization. You did have a drop in her hemoglobin from 12.1-9.3 but remained stable and had improvement in your symptoms. You had findings on your chest x-ray that were concerning for pneumonia. You were continued on antibiotics for 3 days via IV while you were hospitalized. You are now being discharged on oral Levaquin which is an antibiotic used to treat pneumonia and he will continue to take that for 7 days. Prior to being discharged your assessed by our oncologist team and and a Port-A-Cath was placed in your chest wall. You were started on chemotherapy with Taxol and will follow up with your oncologist for weekly chemotherapy. No Smoking: If you smoke, Please STOP! Call for help. Follow-up with: Taj Coyle MD [Primary Care Provider] -
--- NOTE | 2018-05-27 17:57 | DISCHARGE SUMMARY ---
Discharge Summary Admit Date: 05/25/18 Discharge Date: 05/27/18 Code Status: Attempt Resuscitation Condition at Discharge: Fair Discharge Disposition: 01 Home, Self Care - DIAGNOSES Admission Diagnoses: 1. Hypoxic respiratory failure requiring more than 5 L of oxygen 2. Lung hemorrhage per CT scan 3. Postobstructive pneumonia 4. Breast cancer with metastatic lung mass 5. Immunocompromise status on chemotherapy 6. Coagulopathy on anticoagulants 7. Diabetes with neuropathy 8. History of coronary disease 9. Peripheral neuropathy 10. COPD Discharge Diagnoses with Status of Each Condition: 1. Acute respiratory failure with hypoxia: Resolved 2. Pneumonia: Stable 3. Breast cancer metastasized to the lung: Guarded 4. Hemoptysis: Improving 5. History of DVT/PE: Stable 6. Diabetes: Stable 7. COPD: Stable 8. History of CAD: Stable - HPI History of Present Illness: Patient is an 83-year-old female with multiple chronic medical problems who presented to the emergency department with 2 weeks of dry cough, no fever a so mewhat acute onset of shortness of breath to the point that the patient felt that she could not breathe and was having hemoptysis which started around 5 AM on 05/24/2018. Patient reported that throughout the day on 05/24/2018 she coughed up a handful of blood at least 3-4 times. Her shortness of breath was progressive. She presented to the emergency department and was found in respiratory distress and increased work of breathing, respiratory rate above 30, and with low oxygen saturation in the 80s on room air. She was tachycardic with initial heart rate of 128. Her blood pressure was 156/134. She had slightly elevated temperature at 37.3 C. Her laboratories were with minor abnormalities including a creatinine of 1.2, BUN of 35, lactic acid was normal. Blood glucose was 196. INR was 2. Notably the patient was on anticoagulants. White blood cell count was normal, hemoglobin was 12.1 within normal range. The patient underwent CT angiography of the chest which showed no pulmonary embolism; however, right upper lobe lung mass with increased surrounding infiltrate compared with prior exam. Pulmonary hemorrhage was suspected. Nonspecific mediastinal and right hilar lymphadenopathy was also described. Putting it in context, the patient will has a history of breast cancer, which was diagnosed in 2008. She received chemotherapy with multiple different chemotherapy agents and has been followed by oncology. Subsequently at the end of April, she was seen in [facility] ER with hemoptysis and workup showed large lung mass which, on further workup, was found to be metastatic disease from prior breast cancer. Notably the patient's history is also significant for pulmonary embolism and DVT, for which the patient is therapeutically anticoagulated on Coumadin. She does have an IVC filter; however as she had a subdural hematoma at the same time she had PE and DVT and at that time she was not a candidate for immediate anticoagulation. Subsequently after the subdural hematoma resolve and she became a candidate for anticoagulation, she was started on Coumadin. Now, as she is scheduled for chemotherapy again for her metastatic breast cancer she was started on Lovenox, awaiting port placement, which was planned to happen on 05/25/2018. During the past few days, she has been on Lovenox anticoagulation. Regarding her other medical problems, she does have history of COPD and was admitted to our hospital in the past with COPD exacerbation back in October 2016; however the patient reports that she has never been oxygen dependent. Reviewing oncology note from 05/18/2018, detailed oncology plan is outlined and regarding CODE STATUS, it was mentioned that discussion was started, not yet completed. The patient seemed to be indecisive about goals of care. On current admission, it seems that she she is acutely ill and I extensively discussed her current situation, workup, underlying medical problems, prognosis and overall situation. We discussed goals of care and different treatment options. The patient does not have very good understanding regarding the constellation of her medical problems. She stated that she wanted to live up to the age of 89; she does have a good sense of humor, but she is somewhat means seriously that she would like aggressive intervention even if she has multiple advanced conditions. She is hopeful and optimistic that she will pull-through and she tells me that she was severely ill prior to her three-way bypass and she pulled through at that time. Therefore, she is also optimistic about her recent lung metastatic mass and she is hopeful that receiving chemotherapy would help her. In summary, she would want to be full CODE STATUS. - HOSPITAL COURSE Hospital Course: The patient was admitted for hemoptysis which initially was quite extensive. The patient was started on IV antibiotics with vancomycin and cefepime for pneumonia. Given the persistent hemoptysis the patient's Lovenox was stopped. During the hospitalization the patient did have a drop in her hemoglobin from 12.1 down to 9.3. The patient's hemoptysis however improved significantly although she was still having mild blood with her cough the hemoptysis had improved markedly. The patient's oncologist had ordered a Port-A-Cath to be placed which was placed in the hospital. The patient was started on chemotherapy while she was hospitalized with Taxol prior to discharge. The patient received 3 days of IV antibiotics and then was switched to oral antibiotics with Levaquin. The patient was in stable condition at the time of discharge. The patient will continue oral antibiotics for 7 days to complete treatment for her pneumonia. The patient was hypoxic on presentation with 5 L of oxygen but was down to room air at the time of discharge. The patient will continue to follow-up with oncology and was continued on medications for her chronic medical problems. The patient's Coumadin was discontinued and she will need to follow-up in the future to consider restarting the Coumadin with her primary care physician. - ALLERGIES Allergies/Adverse Reactions: Allergies Allergy/AdvReac Type Severity Reaction Status Date / Time Sulfa (Sulfonamide Allergy Severe Hives Verified 05/24/18 21:21 Antibiotics) adhesive Allergy Mild Rash Verified 05/24/18 21:21 Penicillins Allergy Hives Verified 05/24/18 21:21 - MEDICATIONS Home Medications: Ambulatory Orders Medication Instructions Recorded Confirmed Allopurinol [Zyloprim] 150 mg PO DAILY 11/16/12 05/25/18 Metoprolol Succinate [Toprol Xl] 25 mg PO DAILY 11/16/12 05/25/18 Potassium Chloride [K-Tab ER] 10 meq PO DAILYWM 11/16/12 05/25/18 Furosemide 40 mg PO DAILY 10/17/16 05/25/18 Insulin Glargine [Lantus] 15 units SUBQ QPM 10/17/16 05/25/18 Lisinopril [Zestril] 5 mg PO DAILY 10/17/16 05/25/18 Pantoprazole Sodium 40 mg PO QDAC 10/17/16 05/25/18 Pravastatin [Pravachol] 40 mg PO QPM 10/18/16 05/25/18 Venlafaxine HCl 37.5 mg PO BID 10/18/16 05/25/18 Tamoxifen Citrate 20 mg PO DAILY 12/17/17 05/25/18 Alendronate [Fosamax] 70 mg PO Q7D 05/12/18 05/25/18 Aspirin [Adult Aspirin Regimen] 81 mg PO DAILY 05/18/18 05/25/18 Calcium Carbonate/Vitamin D3 1 tab PO BID 05/18/18 05/25/18 [Calcium 600-Vit D3 800 Tablet] Multivitamin/Iron/Folic Acid 1 each PO DAILY 05/18/18 05/25/18 [Centrum Adults Tablet] Acetaminophen [Tylenol Extra 1,000 mg PO BID PRN 05/25/18 05/25/18 Strength] Anastrozole 1 mg PO DAILY 05/25/18 05/25/18 Ondansetron HCl [Zofran] 4 mg PO Q4H PRN 05/25/18 05/25/18 Prochlorperazine Maleate 10 mg PO Q6H PRN 05/25/18 05/25/18 Sitagliptin Phosphate [Januvia] 50 mg PO DAILY 05/25/18 05/25/18 Levofloxacin [Levaquin] 750 mg PO DAILY #7 tablet 05/27/18 - PHYSICAL EXAM AT DISCHARGE General Appearance: positive: No acute distress, Alert Eyes Bilateral: positive: Normal inspection, PERRL, EOMI, No lid inflammation, Conjunctivae nml, No scleral icterus ENT: positive: ENT inspection nml, Pharynx nml, No signs of dehydration. negative: Purulent nasal drainage, Pharyngeal erythema, Oral lesions Neck: positive: Nml inspection, Thyroid nml, No JVD, Trachea midline. negative: Thyromegaly, Lymphadenopathy (R), Lymphadenopathy (L), Stiff neck, Carotid bruit, Tracheal deviation Respiratory: positive: Chest non-tender, No respiratory distress, Rhonchi. negative: Wheezes, Rales Cardiovascular: positive: Regular rate & rhythm, No murmur, No gallop Peripheral Pulses: positive: 2+ Abdomen: positive: Non-tender, No organomegaly, Nml bowel sounds, No distention. negative: Guarding, Rebound, Hepatomegaly Back: positive: Nml inspection. negative: CVA tenderness (R), CVA tenderness (L) Skin: positive: Color nml, No rash, Warm Extremities: positive: Non-tender, Full ROM, Nml appearance, No pedal edema Neurologic/Psychiatric: positive: Oriented x3, CN's nml (2-12), Motor nml, Sensation nml, Mood/affect nml - LABS Result Diagrams: 05/27/18 06:42 05/27/18 06:42 Other Lab Results: Laboratory Results WBC 7.7 x10^3/uL (4.8-10.8) 05/27/18 06:42 RBC 3.04 10^6/uL (4.20-5.40) L 05/27/18 06:42 Hgb 9.3 g/dL (12.0-16.0) L 05/27/18 06:42 Hct 28.0 % (37.0-47.0) L 05/27/18 06:42 MCV 92.0 fL (81.0-99.0) 05/27/18 06:42 MCH 30.5 pg (27.0-31.0) 05/27/18 06:42 MCHC 33.1 g/dL (32.0-36.0) 05/27/18 06:42 RDW 15.3 % (12.0-15.0) H 05/27/18 06:42 Plt Count 225 10^3/uL (130-450) 05/27/18 06:42 MPV 9.6 fL (7.9-10.8) 05/27/18 06:42 Neut # (Auto) 5.8 10^3/uL (1.5-6.6) 05/27/18 06:42 Lymph # (Auto) 1.1 10^3/uL (1.5-3.5) L 05/27/18 06:42 [place] # (Auto) 0.4 10^3/uL (0.0-1.0) 05/27/18 06:42 Eos # (Auto) 0.3 10^3/uL (0.0-0.7) 05/27/18 06:42 Baso # (Auto) 0.1 10^3/uL (0.0-0.1) 05/27/18 06:42 Absolute Nucleated RBC 0.00 x10^3/uL 05/27/18 06:42 Nucleated RBC % 0.0 /100WBC 05/27/18 06:42 PT 15.4 secs (9.9-12.6) H 05/26/18 05:20 INR 1.4 (0.8-1.2) H 05/26/18 05:20 Whole Blood INR 1.5 (0.8-1.2) H 05/25/18 19:00 APTT 26.6 secs (24.9-33.3) 05/24/18 21:29 VBG pH 7.337 (7.31-7.41) 05/27/18 06:42 Ionized Calcium 1.07 mmol/L (1.15-1.33) L 05/27/18 06:42 Sodium 138 mmol/L (135-145) 05/27/18 06:42 Potassium 4.2 mmol/L (3.5-5.0) 05/27/18 06:42 Chloride 106 mmol/L (101-111) 05/27/18 06:42 Carbon Dioxide 26 mmol/L (21-32) 05/27/18 06:42 Anion Gap 6.0 (6-13) 05/27/18 06:42 BUN 24 mg/dL (6-20) H 05/27/18 06:42 Creatinine 1.0 mg/dL (0.4-1.0) 05/27/18 06:42 Estimated GFR (MDRD) 53 (>89) L 05/27/18 06:42 Glucose 173 mg/dL (70-100) H 05/27/18 06:42 POC Whole Bld Glucose 143 mg/dL (70 - 100) H 05/27/18 17:04 Lactic Acid 1.3 mmol/L (0.5-2.2) 05/24/18 22:00 Calcium 7.6 mg/dL (8.5-10.3) L 05/27/18 06:42 Ionized Calcium YES 05/27/18 06:42 Phosphorus 2.1 mg/dL (2.5-4.6) L 05/27/18 06:42 Magnesium 1.3 mg/dL (1.7-2.8) L 05/27/18 06:42 Total Bilirubin 0.7 mg/dL (0.2-1.0) 05/27/18 06:42 AST 18 IU/L (10-42) 05/27/18 06:42 ALT 13 IU/L (10-60) 05/27/18 06:42 Alkaline Phosphatase 39 IU/L (42-121) L 05/27/18 06:42 Total Protein 5.7 g/dL (6.7-8.2) L 05/27/18 06:42 Albumin 2.4 g/dL (3.2-5.5) L 05/27/18 06:42 Globulin 3.3 g/dL (2.1-4.2) 05/27/18 06:42 Albumin/Globulin Ratio 0.7 (1.0-2.2) L 05/27/18 06:42 - DIAGNOSTIC IMAGING Diagnostic Imaging Results: Final report reviewed Diagnostic Imaging Results Comments: Chest/thorax CT angiography Impression: 1. No pulmonary emboli seen 2. Right upper lobe lung mass with increased surrounding infiltrate compared with prior exam. Pulmonary hemorrhage is also possible. [place] 3. Mildly prominent nonspecific mediastinal and right hilar lymph nodes. Chest x-ray Impression: 1. New left subclavian Port-A-Cath tip likely in the high right atrium. Otherwise no postoperative complication. 2. Worsening airspace opacity right upper lobe favoring a lobar pneumonia. - FOLLOW UP Follow Up: Patient was admitted for hemoptysis and hypoxia which improved after patient's anticoagulation was stopped. Because of hemoptysis and hypoxia appears to be lung cancer in the setting of being on anticoagulation and pneumonia. Patient had a Port-A-Cath placed for treatment for her lung mass for metastatic breast cancer. The patient was started on Paxil prior to discharge. The patient did have a drop in her hemoglobin from 12.1-9.3. However the patient's hemoptysis improved during the hospitalization. The patient also had improvement in her hypoxemia from requiring 5 L on presentation down to room air. The patient was treated with IV antibiotics for her pneumonia and then transition to oral antibiotics at discharge. The patient will complete 7 days of oral Levaquin. The patient will follow-up with oncology for further chemotherapy. - TIME SPENT Time Spent in Discharge (Minutes): 45
[2018-05-27 18:00] VITALS: BP 155/70
== END 2018-05-27 18:25 | disposition home or self-care (01) | DRG 189 ==
LOC: ED 21:08 → ICU 05-25 00:53
PROVIDERS: ADMIT Internal Medicine; ATTEND Internal Medicine
PROC: 02H633Z Insertion of Infusion Device into Right Atrium, Percutaneous Approach (ICD-10-PCS; 2018-05-26)
PROC: 0JH63WZ Insertion of Totally Implantable Vascular Access Device into Chest Subcutaneous Tissue and Fascia, Percutaneous Approach (ICD-10-PCS; principal; 2018-05-26 10:30)
DX: J96.01 Acute respiratory failure with hypoxia (principal); R91.8 Other nonspecific abnormal finding of lung field; R09.02 Hypoxemia; C50.919 Malignant neoplasm of unspecified site of unspecified female breast; J18.1 Lobar pneumonia, unspecified organism; R04.2 Hemoptysis; J45.909 Unspecified asthma, uncomplicated; E11.9 Type 2 diabetes mellitus without complications; J44.0 Chronic obstructive pulmonary disease with (acute) lower respiratory infection; D68.32 Hemorrhagic disorder due to extrinsic circulating anticoagulants; C78.01 Secondary malignant neoplasm of right lung; T82.594A Other mechanical complication of infusion catheter, initial encounter; T45.515A Adverse effect of anticoagulants, initial encounter; R59.0 Localized enlarged lymph nodes; Y84.8 Other medical procedures as the cause of abnormal reaction of the patient, or of later complication, without mention of misadventure at the time of the procedure; I25.10 Atherosclerotic heart disease of native coronary artery without angina pectoris; E11.319 Type 2 diabetes mellitus with unspecified diabetic retinopathy without macular edema; E11.42 Type 2 diabetes mellitus with diabetic polyneuropathy; I10 Essential (primary) hypertension; E78.5 Hyperlipidemia, unspecified; G89.29 Other chronic pain; M48.00 Spinal stenosis, site unspecified; M10.9 Gout, unspecified; M19.90 Unspecified osteoarthritis, unspecified site; Z79.899 Other long term (current) drug therapy; Z86.718 Personal history of other venous thrombosis and embolism; Z79.01 Long term (current) use of anticoagulants; Z86.711 Personal history of pulmonary embolism; Z85.3 Personal history of malignant neoplasm of breast; Z95.828 Presence of other vascular implants and grafts; Z95.1 Presence of aortocoronary bypass graft; Z91.81 History of falling; Z87.828 Personal history of other (healed) physical injury and trauma; Z79.891 Long term (current) use of opiate analgesic; Z86.73 Personal history of transient ischemic attack (TIA), and cerebral infarction without residual deficits; Z79.82 Long term (current) use of aspirin; Z87.891 Personal history of nicotine dependence; Z79.811 Long term (current) use of aromatase inhibitors; Z79.4 Long term (current) use of insulin
CPT/HCPCS: 36415; 71045; 71275; 76000; 80048; 80053; 82330; 83605; 83735; 84100; 85025; 85610; 85730; 87040; 87640; 93005; 94640; 99284

== ENCOUNTER 2018-06-10 13:46 | Outpatient (CLI) | payer MEDICARE, OTHER | END 2018-06-10 13:47 | disposition home or self-care (01) | LOC: LAB 13:46 | PROVIDERS: ATTEND Internal Medicine | DX: I82.509 Chronic embolism and thrombosis of unspecified deep veins of unspecified lower extremity (principal); Z79.01 Long term (current) use of anticoagulants | CPT/HCPCS: 85610 ==

== ENCOUNTER 2018-08-19 08:00 | Outpatient (CLI) | payer MEDICARE, OTHER | END 2018-08-19 23:59 | disposition home or self-care (01) | LOC: LAB.R 08:00 | PROVIDERS: ATTEND Podiatrist | DX: E11.622 Type 2 diabetes mellitus with other skin ulcer (principal) | CPT/HCPCS: 87070; 87205 ==

== ENCOUNTER 2018-09-02 08:00 | Outpatient (CLI) | payer MEDICARE, OTHER ==
[2018-09-02 15:56] LABS: HB2 TOTAL 12.8 g/dL; HEMOGLOBIN A1C 0.63 g/dL; HEMOGLOBIN A1C % 6.7 % (4.6-6.2)
== END 2018-09-02 23:59 | disposition home or self-care (01) ==
LOC: LAB.R 08:00
PROVIDERS: ATTEND Family Medicine
DX: E11.9 Type 2 diabetes mellitus without complications (principal)
CPT/HCPCS: 83036

== ENCOUNTER 2018-09-13 12:46 | Outpatient (CLI) | payer MEDICARE, OTHER | END 2018-09-13 12:47 | disposition critical access hospital (66) | LOC: EMS 12:46 | PROVIDERS: ATTEND Surgery | DX: R00.2 Palpitations (principal); R42 Dizziness and giddiness; R53.1 Weakness | CPT/HCPCS: A0425; A0429 ==

== ENCOUNTER 2018-09-13 13:20 | Emergency (ER) | payer MEDICARE, OTHER ==
--- NOTE | 2018-09-13 14:33 | ED Physician Documentation ---
History of Present Illness - Stated complaint Stated Complaint: PALPITATIONS - Chief complaint Chief Complaint: Cardiac - History obtained from History obtained from: Patient, Family - History of Present Illness Timing: Today Pain level max: 0 Pain level now: 0 - Additonal information Additional information: 83-year-old female with a history of paroxysmal atrial fibrillation presents to the emergency department palpitations today. This lasted approximately 15 minutes. Now resolved. States she is taking Ibrance for chemotherapy, started 2 days ago and her reaction. No difficulty breathing. No chest pain. She was lightheaded during the episode. No syncope. No nausea or vomiting. 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 : 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 HEENT: None Psych: Depression Musculoskeletal: Osteoarthritis, Gout, Fatigue, Chronic back pain Derm: None - Past Surgical History Past Surgical History: Yes Ortho: Knee replacement /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 LASTER: 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 Cardiovascular: CABG, Coronary stent - Present Medications Home Medications: Ambulatory Orders Medication Instructions Recorded Confirmed Allopurinol [Zyloprim] 150 mg PO DAILY 11/16/12 09/02/18 Metoprolol Succinate [Toprol Xl] 25 mg PO DAILY 11/16/12 09/02/18 Potassium Chloride [K-Tab ER] 10 meq PO DAILYWM 11/16/12 09/02/18 Furosemide 40 mg PO DAILY 10/17/16 09/02/18 Insulin Glargine [Lantus] 15 units SUBQ QPM 10/17/16 09/02/18 Lisinopril [Zestril] 5 mg PO DAILY 10/17/16 09/02/18 Pantoprazole Sodium 40 mg PO QDAC 10/17/16 09/02/18 Pravastatin [Pravachol] 40 mg PO QPM 10/18/16 09/02/18 Alendronate [Fosamax] 70 mg PO Q7D 05/12/18 09/02/18 Aspirin [Adult Aspirin Regimen] 81 mg PO DAILY 05/18/18 09/02/18 Calcium Carbonate/Vitamin D3 1 tab PO BID 05/18/18 09/02/18 [Calcium 600-Vit D3 800 Tablet] Multivitamin/Iron/Folic Acid 1 each PO DAILY 05/18/18 09/02/18 [Centrum Adults Tablet] Acetaminophen [Tylenol Extra 1,000 mg PO BID PRN 05/25/18 09/02/18 Strength] Ondansetron HCl [Zofran] 4 mg PO Q4H PRN 05/25/18 09/02/18 Prochlorperazine Maleate 10 mg PO Q6H PRN 05/25/18 09/02/18 Sitagliptin Phosphate [Januvia] 50 mg PO DAILY 05/25/18 09/02/18 Oxycodone HCl/Acetaminophen 1 each PO PRN PRN 08/12/18 09/02/18 [Oxycodone-Acetaminophen 5-325] Letrozole 1 tab PO DAILY 09/02/18 09/02/18 Palbociclib [Ibrance] 1 cap PO DAILY 09/02/18 09/02/18 - Allergies Allergies/Adverse Reactions: Allergies Allergy/AdvReac Type Severity Reaction Status Date / Time Sulfa (Sulfonamide Allergy Severe Hives Verified 09/13/18 13:24 Antibiotics) adhesive Allergy Mild Rash Verified 09/13/18 13:24 Penicillins Allergy Hives Verified 09/13/18 13:24 - Social History Does the pt smoke?: No Smoking Status: Never smoker Does the pt drink ETOH?: Yes Does the pt have substance abuse?: No - Immunizations Immunizations are current?: Yes - POLST Patient has POLST: No PD ED PE NORMAL - Vitals Vital signs reviewed: Yes - General General: Alert and oriented X 3, No acute distress, Well developed/nourished - HEENT HEENT: PERRL, Moist mucous membranes - Neck Neck: Supple, no meningeal sign - Cardiac Cardiac: RRR, Strong equal pulses - Respiratory Respiratory: No respiratory distress, Clear bilaterally - Abdomen Abdomen: Soft, Non tender, Non distended - Derm Derm: Warm and dry, No rash - Extremities Extremities: No edema - Neuro Neuro: Alert and oriented X 3 - Psych Psych: Normal mood, Normal affect Results - Vitals Vitals: Vital Signs - 24 hr 04/07/19 04/07/19 04/07/19 13:24 13:30 15:38 Temperature 36.8 C 36.8 C Heart Rate 91 90 87 Respiratory 16 16 20 Rate Blood Pressure 136/68 H 136/68 H 147/71 H O2 Saturation 93 94 95 09/13/18 16:53 Temperature 36.9 C Heart Rate 96 Respiratory 24 Rate Blood Pressure 147/71 H O2 Saturation 94 Oxygen O2 Source [With Activity] Room air O2 Source [Without Activity] Room air O2 Source Room air - EKG (time done) 1329 Rate: Rate (enter#) (93) Rhythm: NSR, Other (PVC) [place]: Normal Intervals: Normal [place] QRS: Normal Ischemia: Normal ST segments - Labs Labs: Laboratory Tests 09/13/18 09/13/18 14:43 14:43 WBC 7.8 RBC 4.10 L Hgb 12.3 Hct 39.0 MCV 95.0 MCH 30.1 MCHC 31.7 L RDW 18.7 H Plt Count 234 MPV 9.6 Neut # (Auto) 5.8 Lymph # (Auto) 0.7 L [place] # (Auto) 0.9 Eos # (Auto) 0.4 Baso # (Auto) 0.1 Absolute Nucleated RBC 0.01 Nucleated RBC % 0.1 Sodium 143 Potassium 3.6 Chloride 103 Carbon Dioxide 30 Anion Gap 10.0 BUN 24 H Creatinine 1.1 H Estimated GFR (MDRD) 48 L Glucose 151 H Calcium 8.2 L Phosphorus 3.4 Magnesium 1.7 Total Bilirubin 0.3 AST 19 ALT 11 Alkaline Phosphatase 78 Total Protein 6.8 Albumin 3.0 L Globulin 3.8 Albumin/Globulin Ratio 0.8 L Lipase 27 PD MEDICAL DECISION MAKING - ED course Complexity details: reviewed results, re-evaluated patient, considered differential, d/w patient, d/w family ED course: Patient with multiple PVCs earlier today. Possible intermittent A. fib as well. Does have a history of this. Asymptomatic here. No further PVCs after magnesium infusion. Will follow up with her doctor for further care. She is otherwise well-appearing, nontoxic. Patient counseled regarding signs and symptoms for which I believe and urgent re-evaluation would be necessary. Patient with good understanding of and agreement to plan and is comfortable going home at this time This document was made in part using voice recognition software. While efforts are made to proofread this document, sound alike and grammatical errors may occur. Departure - Departure Disposition: 01 Home, Self Care Clinical Impression: Palpitations, Hypomagnesemia Condition: Good Instructions: ED Palpitations Follow-Up: Matthew Logan MD [Primary Care Provider] - Within 1 week Comments: Return if you worsen. Your magnesium was slightly low today. Follow-up with your doctor for further care. Discharge Date/Time: 09/13/18 17:02
[2018-09-13 15:16] LABS: BASOPHILS # (AUTO) 0.1 10^3/uL (0.0-0.1); BASOPHILS % (AUTO) 0.7 %; EOSINOPHILS # (AUTO) 0.4 10^3/uL (0.0-0.7); EOSINOPHILS % (AUTO) 5.4 %; HGB - HEMOGLOBIN 12.3 g/dL (12.0-16.0); LYMPHOCYTES # (AUTO) 0.7 10^3/uL (1.5-3.5); LYMPHOCYTES % (AUTO) 9.4 %; MEAN CORPUSCULAR HEMOGLOBIN 30.1 pg (27.0-31.0); MEAN CORPUSCULAR HGB CONC 31.7 g/dL (32.0-36.0); MEAN PLATELET VOLUME 9.6 fL (7.9-10.8); MONOCYTES # (AUTO) 0.9 10^3/uL (0.0-1.0); MONOCYTES % (AUTO) 10.9 %; NEUTROPHILS # (AUTO) 5.8 10^3/uL (1.5-6.6); NEUTROPHILS % (AUTO) 73.6 %; PLT - PLATELET COUNT 234 10^3/uL (130-450); RED CELL DISTRIBUTION WIDTH 18.7 % (12.0-15.0); WHITE BLOOD COUNT 7.8 x10^3/uL (4.8-10.8)
[2018-09-13 15:34] LABS: ALBUMIN/GLOBULIN RATIO 0.8 (1.0-2.2); BILIRUBIN,TOTAL 0.3 mg/dL (0.2-1.0); CALCIUM 8.2 mg/dL (8.5-10.3); CREATININE 1.1 mg/dL (0.4-1.0); MAGNESIUM 1.7 mg/dL (1.7-2.8); PHOSPHORUS 3.4 mg/dL (2.5-4.6); TOTAL PROTEIN 6.8 g/dL (6.7-8.2)
[2018-09-13] MEDS ORDERED: MAGNESIUM SULFATE 2 GRAM 2 GM/50 ML BAG IV ONE (15:36)
[2018-09-13 15:38] VITALS: BP 147/71
== END 2018-09-13 17:02 | disposition home or self-care (01) ==
LOC: ED 13:20
DX: R00.2 Palpitations (principal); E83.42 Hypomagnesemia; C50.919 Malignant neoplasm of unspecified site of unspecified female breast; I10 Essential (primary) hypertension; E78.00 Pure hypercholesterolemia, unspecified; E11.9 Type 2 diabetes mellitus without complications; Z79.4 Long term (current) use of insulin; Z86.711 Personal history of pulmonary embolism; Z86.718 Personal history of other venous thrombosis and embolism; Z95.5 Presence of coronary angioplasty implant and graft; Z95.1 Presence of aortocoronary bypass graft; Z96.659 Presence of unspecified artificial knee joint; Z79.82 Long term (current) use of aspirin; Z92.21 Personal history of antineoplastic chemotherapy
CPT/HCPCS: 36415; 80053; 83690; 83735; 84100; 85025; 93005; 96365; 99283

== ENCOUNTER 2018-09-23 08:00 | Outpatient (CLI) | payer MEDICARE, OTHER | END 2018-09-23 23:59 | disposition home or self-care (01) | LOC: LAB.R 08:00 | PROVIDERS: ATTEND Family Medicine | DX: E83.42 Hypomagnesemia (principal); I49.3 Ventricular premature depolarization | CPT/HCPCS: 83735 ==

== ENCOUNTER 2018-11-18 14:54 | Inpatient (IN) | payer MEDICARE, OTHER ==
--- NOTE | 2018-11-18 15:22 | ED Physician Documentation ---
History of Present Illness - Stated complaint Stated Complaint: SOA,LT TOE PAIN WEAKNESS - Chief complaint Chief Complaint: Resp - History obtained from History obtained from: Patient, Family - History of Present Illness Timing: How many days ago (2) Severity Comments: moderate Quality: like a band Radiates to: abdominal/chest pain radiating across mid abdomen Improved by: nothing Worsened by: nothing Associated symptoms: Reports sob, cough, left big toe pain. No fever - Treatment prior to arrival Treatment prior to arrival: none - Additonal information Additional information: 83 y/o F with hx of Metastatic breast cancer with breast mets, last chemo 2 weeks ago with hx of Afiib which happened one time. with Sent here from clinic for evaluation of kidney failure, rapid heart rate and hypoxia. Also reports band like feeling arcross chest and abdomen. Not on blood thinners for afib. Reports worsening sob. Mild cough. Ongoing toe infection of L big toe, nonhealing despite antibiotics. Review of Systems Ten Systems: 10 systems reviewed and negative Constitutional: denies: Fever Cardiac: reports: Chest pain / pressure Respiratory: reports: Dyspnea, Cough GI: reports: Abdominal Pain. denies: Abdominal Swelling, Nausea, Vomiting Skin: reports: Other (nonhealing toe wound) Musculoskeletal: reports: Extremity swelling (bilateral leg swelling). 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 HEENT: None Psych: Depression Musculoskeletal: Osteoarthritis, Gout, Fatigue, Chronic back pain Derm: None - Past Surgical History Past Surgical History: Yes Ortho: 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 Cardiovascular: CABG, Coronary stent - Present Medications Home Medications: Ambulatory Orders Medication Instructions Recorded Confirmed Allopurinol [Zyloprim] 150 mg PO DAILY 11/16/12 11/18/18 Metoprolol Succinate [Toprol Xl] 25 mg PO DAILY 11/16/12 11/18/18 Potassium Chloride [K-Tab ER] 10 meq PO BID 11/16/12 11/18/18 Furosemide 40 mg PO DAILY 10/17/16 11/18/18 Insulin Glargine [Lantus] 15 units SUBQ QPM 10/17/16 11/18/18 Lisinopril [Zestril] 5 mg PO DAILY 10/17/16 11/18/18 Pantoprazole Sodium 40 mg PO QDAC 10/17/16 11/18/18 Pravastatin [Pravachol] 40 mg PO QPM 10/18/16 11/18/18 Alendronate [Fosamax] 70 mg PO Q7D 05/12/18 11/18/18 Aspirin [Adult Aspirin Regimen] 81 mg PO DAILY 05/18/18 11/18/18 Calcium Carbonate/Vitamin D3 1 tab PO BID 05/18/18 11/18/18 [Calcium 600-Vit D3 800 Tablet] Multivitamin/Iron/Folic Acid 1 each PO DAILY 05/18/18 11/18/18 [Centrum Adults Tablet] Acetaminophen [Tylenol Extra 1,000 mg PO BID PRN 05/25/18 11/18/18 Strength] Sitagliptin Phosphate [Januvia] 50 mg PO DAILY 05/25/18 11/18/18 Letrozole 2.5 mg PO DAILY 09/02/18 11/18/18 Albuterol Sulfate [Proair Hfa 2 puffs INH Q6H PRN 11/18/18 11/18/18 Inhaler] Palbociclib [Ibrance] 100 mg PO DAILY 11/18/18 11/18/18 Venlafaxine HCl 37.5 mg PO BID 11/18/18 11/18/18 - Allergies Allergies/Adverse Reactions: Allergies Allergy/AdvReac Type Severity Reaction Status Date / Time Sulfa (Sulfonamide Allergy Severe Hives Verified 11/18/18 14:16 Antibiotics) adhesive Allergy Mild Rash Verified 11/18/18 14:16 Penicillins Allergy Hives Verified 11/18/18 15:00 - Social History Does the pt smoke?: No Smoking Status: Never smoker Does the pt drink ETOH?: Yes Does the pt have substance abuse?: No - Immunizations Immunizations are current?: Yes - POLST Patient has POLST: No PD ED PE NORMAL - Vitals Vital signs reviewed: Yes - General General: Alert and oriented X 3, No acute distress, Other (frail, chronically ill appearing ) - HEENT HEENT: Atraumatic - Neck Neck: Supple, no meningeal sign, No JVD - Female Female : Deferred - Rectal Rectal: Deferred - Derm Derm: Normal color, Warm and dry, No rash - Neuro Neuro: Alert and oriented X 3 Eye Opening: Spontaneous Motor: Obeys Commands Verbal: Oriented GCS Score: 15 - Psych Psych: Normal mood, Normal affect PD ED PE EXPANDED - HEENT HEENT: Atraumatic, Other (dry mucous membranes ) - Neck Neck: Supple w/out meningeal sx - Respiratory Respiratory: Labored (mildly), Decreased breath sounds (to bibasilar areas ), Left lower lobe (crackles present ) - Abdomen Abdomen: No: Distended - Derm Derm: Warm and dry, Other (left big toe with medial old nonhealing wound with surrounding redness) - Extremities Extremities: Left toe(s) (big toe with nonhealing wound, surrounding redness, minimal drainage ) Results - Vitals Vitals: Vital Signs - 24 hr 11/18/18 11/18/18 11/18/18 14:57 16:03 16:23 Temperature 36.8 C 36.9 C Heart Rate 74 134 H 122 H Respiratory 20 21 20 Rate Blood Pressure 96/67 129/114 H 98/78 O2 Saturation 93 96 97 Oxygen O2 Source [With Activity] Room air O2 Source [Without Activity] Room air O2 Source Nasal cannula Oxygen Flow Rate 2 - EKG (time done) 15:13 Rate: Tachy Rhythm: Atrial fibrillation (with RVR) [place]: Normal Intervals: Normal SD QRS: Normal Ischemia: No: ST elevation c/w ischemia Computer interpretation: Agree with computer - Tele (time rhythm occurred) No standard instances Telemetry / rhythm strip: Atrial fibrillation - Labs Labs: Laboratory Tests 11/18/18 11/18/18 11/18/18 15:47 15:47 15:47 WBC 8.2 RBC 3.59 L Hgb 11.4 L Hct 36.2 L MCV 100.8 H MCH 31.9 H MCHC 31.6 L RDW 20.1 H Plt Count 329 MPV 9.5 Neut # (Auto) 6.1 Lymph # (Auto) 0.5 L [place] # (Auto) 1.4 H Eos # (Auto) 0.0 Baso # (Auto) 0.1 Absolute Nucleated RBC 0.03 Nucleated RBC % 0.3 Manual Slide Review Indicated WBC Morphology NORMAL APPEARANCE Platelet Estimate NORMAL (130-450,000) Platelet Morphology NORMAL APPEARANCE RBC Morph Micro Appear 1+ MACROCYTOSIS Sodium 137 Potassium 4.8 Chloride 98 L Carbon Dioxide 25 Anion Gap 14.0 H BUN 50 H Creatinine 2.1 H Estimated GFR (MDRD) 23 L Glucose 149 H Lactic Acid Calcium 9.7 Total Bilirubin 0.6 AST 28 ALT 14 Alkaline Phosphatase 77 Troponin I 0.04 B-Natriuretic Peptide Total Protein 6.8 Albumin 2.9 L Globulin 3.9 Albumin/Globulin Ratio 0.7 L Lipase 23 11/18/18 11/18/18 15:47 15:47 WBC RBC Hgb Hct MCV MCH MCHC RDW Plt Count MPV Neut # (Auto) Lymph # (Auto) [place] # (Auto) Eos # (Auto) Baso # (Auto) Absolute Nucleated RBC Nucleated RBC % Manual Slide Review WBC Morphology Platelet Estimate Platelet Morphology RBC Morph Micro Appear Sodium Potassium Chloride Carbon Dioxide Anion Gap BUN Creatinine Estimated GFR (MDRD) Glucose Lactic Acid 1.6 Calcium Total Bilirubin AST ALT Alkaline Phosphatase Troponin I B-Natriuretic Peptide 389 H Total Protein Albumin Globulin Albumin/Globulin Ratio Lipase - Rads (name of study) No standard instances Radiology: Final report received (cardiomegaly, pleural effusion speresent. ) PD MEDICAL DECISION MAKING - ED course Complexity details: re-evaluated patient, considered differential, d/w patient, d/w family ED course: ddx- PE, pneumonia, worsening lung disease, pleural effusions - CHF vs malignant. Toe - osteomeylitis, cellulitis, nonhealing wound 83 y/o F with hx of Metastatic breast cancer with breast mets, last chemo 2 weeks ago with hx of Afiib which happened one time. with Sent here from clinic for evaluation of kidney failure, rapid heart rate and hypoxia. Ongoing toe wound will obtain xray, pending read. No obvious signs of infection - no fever. Pt stopped lasix 3 days ago because " it was running through me" and since then has had worsaening sob. Likely due to pleural effusions, perhaps worsened due to stopping lasix. pt has CKD but perhaps mildly worsening renal failure. She did arrive in afib with RVR and was given lopressor which improved her afib rate to 110s instead of 160s. Pt's BP 98 systolic thus held second dose. Trigger for her afib may be this hypoxia/effusions, fluid overload vs infection. Discussed with Dr. Ernandez who will admit pt for further eval and monitoring - Critical Care Time(min): 15 Time Includes: Direct patient care, Review records, Reassess patient Data interpretation: Labs, Pulse ox, CXR, Prior EKG, See progress note Departure - Departure Disposition: 66 [facility] DC/Xfer Clinical Impression: Atrial fibrillation with rapid ventricular response, Pleural effusion, Hypoxia, Acute kidney injury, Metastatic breast cancer Wound, open, toe Qualifiers: Encounter type: subsequent encounter Qualified Code(s): S91.109D - Unspecified open wound of unspecified toe(s) without damage to nail, subsequent encounter Condition: Serious
[2018-11-18] MEDS ORDERED: METOPROLOL 5 MG/5 ML VIAL IVP STA ×2 (15:23→16:19)
[2018-11-18 16:00] LABS: BASOPHILS # (AUTO) 0.1 10^3/uL (0.0-0.1); BASOPHILS % (AUTO) 0.6 %; EOSINOPHILS % (AUTO) 0.6 %; HGB - HEMOGLOBIN 11.4 g/dL (12.0-16.0); LYMPHOCYTES # (AUTO) 0.5 10^3/uL (1.5-3.5); LYMPHOCYTES % (AUTO) 6.6 %; MEAN CORPUSCULAR HEMOGLOBIN 31.9 pg (27.0-31.0); MEAN CORPUSCULAR HGB CONC 31.6 g/dL (32.0-36.0); MEAN CORPUSCULAR VOLUME 100.8 fL (81.0-99.0); MEAN PLATELET VOLUME 9.5 fL (7.9-10.8); MONOCYTES # (AUTO) 1.4 10^3/uL (0.0-1.0); MONOCYTES % (AUTO) 17.1 %; NEUTROPHILS # (AUTO) 6.1 10^3/uL (1.5-6.6); NEUTROPHILS % (AUTO) 75.1 %; PLT - PLATELET COUNT 329 10^3/uL (130-450); RED BLOOD COUNT 3.59 10^6/uL (4.20-5.40); RED CELL DISTRIBUTION WIDTH 20.1 % (12.0-15.0); WHITE BLOOD COUNT 8.2 x10^3/uL (4.8-10.8)
[2018-11-18 16:12] LABS: ALBUMIN 2.9 g/dL (3.2-5.5); ALBUMIN/GLOBULIN RATIO 0.7 (1.0-2.2); BILIRUBIN,TOTAL 0.6 mg/dL (0.2-1.0); CALCIUM 9.7 mg/dL (8.5-10.3); CREATININE 2.1 mg/dL (0.4-1.0); TOTAL PROTEIN 6.8 g/dL (6.7-8.2)
[2018-11-18 16:15] LABS: PLATELET ESTIMATE, MANUAL NORMAL (130-450,000) (NORMAL); PLATELET MORPHOLOGY NORMAL APPEARANCE (NORMAL)
--- NOTE | 2018-11-18 16:25 | XRAY Report ---
Reason: chest pain Procedure Date: 11/18/2018 Accession Number: [id number] / [id number] Procedure: XR - Chest 1 View X-Ray CPT Code: 05571 FULL RESULT: EXAM: CHEST RADIOGRAPHY EXAM DATE: 11/18/2018 03:53 PM. CLINICAL HISTORY: Chest pain. COMPARISON: 05/26/2018. TECHNIQUE: 1 view. FINDINGS: Lungs/Pleura: Ill-defined lateral right upper lobe opacity in area of previous infiltrate, with mild pleural thickening laterally. Both costophrenic angles are blunted. No acute infiltrate noted. No sign of pneumothorax. Mediastinum: Prior CABG. Large heart. Other: Stable left subclavian central line. Chronic degenerative changes of the left shoulder. IMPRESSION: 1. Cardiomegaly. 2. Small pleural effusions suspected. 3. Persistent ill-defined right upper lobe opacity with lateral pleural thickening. [facility]
[2018-11-18] MEDS ORDERED: PROCHLORPERAZINE 10 MG/2 ML VIAL IVP PRN (16:49)
[2018-11-18] MEDS ORDERED: ACETAMINOPHEN 325 MG TABLET PO PRN (16:49)
[2018-11-18] MEDS ORDERED: ONDANSETRON ODT 4 MG TABLET TL PRN (16:49)
--- NOTE | 2018-11-18 17:15 | HISTORY & PHYSICAL EXAMINATION ---
Chief Complaint - Chief Complaint Chief Complaint: Dyspnea, left toe pain, weakness Respiratory Admission HPI - Admitted From Admitted from: ED - History Obtained From Records Reviewed: RN notes reviewed History obtained from: Patient Exam limitations: No limitations - History of Present Illness HPI Comment/Other: This is a 83-year-old female with a complicated past medical history significant for stage IV metastatic breast carcinoma, Initially diagnosed in 2008 status post chemotherapy with active treatment with letrozole and immunotherapy (Ibrance) as of 11/04/18. Please refer to Dr. Joseph as note dated 10/07/2018 for more detailed summary and course of patient's breast carcinoma. 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 She also has a history of Immuno/chemo induced anemia, pancytopenia. She just finished a 10-day course of doxycycline for a suspected left toe cellulitis and was also complaining of right hip pain when she visited her primary customer service analyst oncologist Dr. Heidi Joseph with last seen on 11/04/2018. She [place] [facility] [place] due to abnormalities in her labs with some weakness, shortness of breath and a suspected toe infection. She is also complaining of pleuritic type chest pain. Patient presented in RVR A. fib in the 130s and was given 1 dose of IV Lopressor in the ED, she was 84% O2 saturation on room air for which she corrected with a 2 L nasal cannula to 96%. Patient became hypotensive after getting 1 dose of 5 mg IV Lopressor. Her heart rate did improve to the 110s to 115's. On exam patient was with increased work of breath and ill-appearing noted to have RVR A. fib and with a creatinine of 2.1, BNP of 389, hemoglobin 11.4, chest x-ray showing small pleural effusions with cardiomegaly and right upper lobe opacity with lateral pleural thickening. Her troponin was 0.04 and a lactic acid was 1.6. Patient does have a history of chronic kidney disease for which her baseline ranges between 1.1-1.7. Her last echocardiogram was on 01/20 which shows mild LVH with an EF of 65%. Patient had a CT chest without contrast due to her creatinine ordered as well as a x-ray to her toe to rule out underlying osteomyelitis. PMH/PSH - Past Medical History Cardiovascular: positive: Hypertension, High cholesterol, Deep vein thrombosis, Pulmonary embolism, Atrial fibrillation, Other Respiratory: positive: Asthma Neuro: positive: None Endocrine/Autoimmune: positive: Type 2 diabetes GI: positive: None HISTOPATHOLOGY TECHNICIAN: positive: Breast cancer : positive: None HEENT: positive: None Psych: positive: Depression Musculoskeletal: positive: Osteoarthritis, Gout, Fatigue, Chronic back pain Derm: positive: None MRSA Hx?: Yes - Past Surgical History Ortho: positive: Knee replacement /HISTOPATHOLOGY TECHNICIAN: positive: 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 Cardiovascular: positive: CABG, Coronary stent Social & Family Hx - Social History Does the pt smoke?: No Smoking Status: Never smoker Does the pt drink ETOH?: Yes Does the pt have substance abuse?: No - POLST Patient has POLST: No Meds/Allgy - Home Medications Home Medications: Ambulatory Orders Medication Instructions Recorded Confirmed Allopurinol [Zyloprim] 150 mg PO DAILY 11/16/12 11/18/18 Metoprolol Succinate [Toprol Xl] 25 mg PO DAILY 11/16/12 11/18/18 Potassium Chloride [K-Tab ER] 10 meq PO BID 11/16/12 11/18/18 Furosemide 40 mg PO DAILY 10/17/16 11/18/18 Insulin Glargine [Lantus] 15 units SUBQ QPM 10/17/16 11/18/18 Lisinopril [Zestril] 5 mg PO DAILY 10/17/16 11/18/18 Pantoprazole Sodium 40 mg PO QDAC 10/17/16 11/18/18 Pravastatin [Pravachol] 40 mg PO QPM 10/18/16 11/18/18 Alendronate [Fosamax] 70 mg PO Q7D 05/12/18 11/18/18 Aspirin [Adult Aspirin Regimen] 81 mg PO DAILY 05/18/18 11/18/18 Calcium Carbonate/Vitamin D3 2 tab PO DAILY 05/18/18 11/18/18 [Calcium 600-Vit D3 800 Tablet] Multivitamin/Iron/Folic Acid 1 tab PO DAILY 05/18/18 11/18/18 [Centrum Adults Tablet] Acetaminophen [Tylenol Extra 1,000 mg PO DAILY 05/25/18 11/18/18 Strength] Sitagliptin Phosphate [Januvia] 50 mg PO DAILY 05/25/18 11/18/18 Letrozole 2.5 mg PO DAILY 09/02/18 11/18/18 Albuterol Sulfate [Proair Hfa 2 puffs INH Q6H PRN 11/18/18 11/18/18 Inhaler] Palbociclib [Ibrance] 100 mg PO DAILY 11/18/18 11/18/18 Venlafaxine HCl 37.5 mg PO BID 11/18/18 11/18/18 - Allergies Allergies/Adverse Reactions: Allergies Allergy/AdvReac Type Severity Reaction Status Date / Time Sulfa (Sulfonamide Allergy Severe Hives Verified 11/18/18 14:16 Antibiotics) adhesive Allergy Mild Rash Verified 11/18/18 14:16 Penicillins Allergy Hives Verified 11/18/18 15:00 Review of Systems - All Other Systems All Other Systems: reports: Reviewed and negative Prior Level of Functionality: Prior functional capacity unknown with home ADLs Exam - Vital Signs Vital Signs: Vital Signs x48h Temp Pulse Resp BP Pulse Ox 11/18/18 17:00 125 H 22 86/71 L 96 11/18/18 16:23 122 H 20 98/78 97 11/18/18 16:03 36.9 C 134 H 21 129/114 H 96 11/18/18 14:57 36.8 C 74 20 96/67 93 - Physical Exam General Appearance: positive: Alert, Mild distress (Patient speaking in short sentences.), Other (Patient is speaking in short sentences. Chronically ill- appearing. Morbidly obese) Eyes Bilateral: positive: Normal inspection, PERRL, EOMI, Conjunctivae nml, No scleral icterus ENT: positive: ENT inspection nml, Pharynx nml, Dry mucous membranes. negative: Oral lesions Neck: positive: Nml inspection, Thyroid nml, No JVD, Trachea midline. negative: Thyromegaly, Carotid bruit, Tracheal deviation Respiratory: positive: Chest non-tender, No respiratory distress, Rales (Faint to the right versus the left), Rhonchi (Decreased breath sounds with prolonged expiratory rhonchi), Other (No retractions or increased work of breath.). negative: Wheezes Cardiovascular: positive: No murmur, No gallop, Irregularly irregular, Tachycardia. negative: JVD present, Gallop/S3, Friction rub Peripheral Pulses: positive: 1+ (Patient has Doppler pulses bilaterally) Abdomen: positive: Non-tender, No organomegaly, Nml bowel sounds, No distention. negative: Tenderness Skin: positive: Color nml, No rash, Dry, Cyanosis (Cyanotic digits with associated ulcerations to the toes), Pallor Extremities: positive: Non-tender, Full ROM, Other (Patients with cyanotic digits Bilateral toes with ulcerations, does not appear erythematous, there is erythema around left toe laterally. No necrotic borders. No bulla.). negative: Pedal edema, Calf tenderness Neurologic/Psychiatric: positive: Oriented x3, CN's nml (2-12) Results - Lab Results Fish Bones: 11/18/18 15:47 11/18/18 15:47 Other Lab Results: Lab Results x24hrs 11/18/18 11/18/18 11/18/18 Range/Units 15:47 15:47 15:47 WBC (4.8-10.8) x10^3/uL RBC (4.20-5.40) 10^6/uL Hgb (12.0-16.0) g/dL Hct (37.0-47.0) % MCV (81.0-99.0) fL MCH (27.0-31.0) pg MCHC (32.0-36.0) g/dL RDW (12.0-15.0) % Plt Count (130-450) 10^3/uL MPV (7.9-10.8) fL Neut # (Auto) (1.5-6.6) 10^3/uL Lymph # (Auto) (1.5-3.5) 10^3/uL Dewitt # (Auto) (0.0-1.0) 10^3/uL Eos # (Auto) (0.0-0.7) 10^3/uL Baso # (Auto) (0.0-0.1) 10^3/uL Absolute Nucleated RBC x10^3/uL Nucleated RBC % /100WBC Manual Slide Review WBC Morphology (NORMAL) Platelet Estimate (NORMAL) Platelet Morphology (NORMAL) RBC Morph Micro Appear (NORMAL) Sodium (135-145) mmol/L Potassium (3.5-5.0) mmol/L Chloride (101-111) mmol/L Carbon Dioxide (21-32) mmol/L Anion Gap (6-13) BUN (6-20) mg/dL Creatinine (0.4-1.0) mg/dL Estimated GFR (MDRD) (>89) Glucose (70-100) mg/dL Lactic Acid 1.6 (0.5-2.2) mmol/L Calcium (8.5-10.3) mg/dL Total Bilirubin (0.2-1.0) mg/dL AST (10-42) IU/L ALT (10-60) IU/L Alkaline Phosphatase (42-121) IU/L Troponin I 0.04 (<0.49) ng/mL B-Natriuretic Peptide 389 H (5-100) pg/mL Total Protein (6.7-8.2) g/dL Albumin (3.2-5.5) g/dL Globulin (2.1-4.2) g/dL Albumin/Globulin Ratio (1.0-2.2) Lipase (22-51) U/L 11/18/18 11/18/18 Range/Units 15:47 15:47 WBC 8.2 (4.8-10.8) x10^3/uL RBC 3.59 L (4.20-5.40) 10^6/uL Hgb 11.4 L (12.0-16.0) g/dL Hct 36.2 L (37.0-47.0) % MCV 100.8 H (81.0-99.0) fL MCH 31.9 H (27.0-31.0) pg MCHC 31.6 L (32.0-36.0) g/dL RDW 20.1 H (12.0-15.0) % Plt Count 329 (130-450) 10^3/uL MPV 9.5 (7.9-10.8) fL Neut # (Auto) 6.1 (1.5-6.6) 10^3/uL Lymph # (Auto) 0.5 L (1.5-3.5) 10^3/uL Dewitt # (Auto) 1.4 H (0.0-1.0) 10^3/uL Eos # (Auto) 0.0 (0.0-0.7) 10^3/uL Baso # (Auto) 0.1 (0.0-0.1) 10^3/uL Absolute Nucleated RBC 0.03 x10^3/uL Nucleated RBC % 0.3 /100WBC Manual Slide Review Indicated WBC Morphology NORMAL APPEARANCE (NORMAL) Platelet Estimate NORMAL (130-450,000) (NORMAL) Platelet Morphology NORMAL APPEARANCE (NORMAL) RBC Morph Micro Appear 1+ MACROCYTOSIS (NORMAL) Sodium 137 (135-145) mmol/L Potassium 4.8 (3.5-5.0) mmol/L Chloride 98 L (101-111) mmol/L Carbon Dioxide 25 (21-32) mmol/L Anion Gap 14.0 H (6-13) BUN 50 H (6-20) mg/dL Creatinine 2.1 H (0.4-1.0) mg/dL Estimated GFR (MDRD) 23 L (>89) Glucose 149 H (70-100) mg/dL Lactic Acid (0.5-2.2) mmol/L Calcium 9.7 (8.5-10.3) mg/dL Total Bilirubin 0.6 (0.2-1.0) mg/dL AST 28 (10-42) IU/L ALT 14 (10-60) IU/L Alkaline Phosphatase 77 (42-121) IU/L Troponin I (<0.49) ng/mL B-Natriuretic Peptide (5-100) pg/mL Total Protein 6.8 (6.7-8.2) g/dL Albumin 2.9 L (3.2-5.5) g/dL Globulin 3.9 (2.1-4.2) g/dL Albumin/Globulin Ratio 0.7 L (1.0-2.2) Lipase 23 (22-51) U/L - Diagnostic Imaging Results Diagnostic Imaging Results: positive: Final report reviewed - EKG Results EKG Interpreted Independently: Yes EKG Comparison: positive: Old EKG unavailable Sepsis Event Note (H) - Sepsis Criteria Sepsis Criteria: Recorded Heart Rate greater than 90 bpm, Respiratory: Increasing oxygen requirements Impression/Plan - Problem List Problem List: 1. Acute hypoxemic respiratory failure associated with Pneumonitis Patient stopped taking her Lasix approximately 3 days ago. Bilateral pleural effusions seen on chest x-ray. Patient CT without contrast shows a 16 mm and unchanged small ill-defined nodule. Significant interval improvement in previous sleeve seen cavitary opacity in the right apex with interval decrease in size of cavitation. Ill-defined parenchyma/air space opacities in the right upper lobe are slightly increased since prior. Increased groundglass opacities in the left lower lobe not likely to be neoplastic. Increased small bilateral pleural effusions. There is a subacute and chronic bilateral rib fractures. Of note patient has been on letrozole and Ibrance. Letrozole may give fractures and bone pain as well as osteoarthritis. Ibrance may cause interstitial lung disease with pneumonitis-noninfectious. Patient lacks fever, elevated white count but does have pleuritic chest pain. Patient presented with 84% O2 saturation on room air and Quickly increased to 96% on 2 L nasal cannula will continue with supplemental oxygenation and will consider noninvasive positive pressure ventilation with BiPAP if bilateral pleural effusions worsen, unclear at this point however highly suspected m alignant effusions with possible non-infectious pneumonitis. Unable to do a CTA to rule out pulmonary embolism, will obtain a d-dimer, consider V/Q scanning in the setting of patient's acute kidney injury. Xopenex as needed. 2. RVR atrial fibrillation Obtain TSH, magnesium level. Echocardiogram to follow. Will place on diltiazem drip with parameters. If blood pressures are labile and unable to tolerate diltiazem will switch over to digoxin. Patient was previously on Toprol-XL at home. 3. Bilateral pleural effusion secondary to #2 and contributing to #1 BNP of 389 likely as result of RVR A. fib with effusions. May be malignant as well. CT without contrast to follow. Patient may need Lasix however due to acute kidney injury will hold off for now. 4. Acute kidney injury superimposed on chronic kidney disease stage III Perfuse kidneys with judicious IV fluids, avoid fluid overload as elevated BNP noted. Patient has underlying chronic kidney disease as evidenced from [facility] Avoid nephrotoxic agents. Correct underlying electrolyte disturbances. Uric acid was 7.6 and with hyperuricemia but will continue with allopurinol. Consider retroperitoneal ultrasound, To evaluate for uric acid stones or hydronephrosis. 5. Chemo/immuno induced side effects Patient presented to Dr. Joseph's office on 11/04/18 With complaints of left toe pain back then and possibly related to side effects with arthralgias and complaint of right hip pain. Continue to control pain with narcotics plus or minus Lyrica or Flexeril. Currently on letrozole as patient was instructed to hold off on cycle #2 of Ibrance since this was likely causing myelosuppression with serious infection such as a left toe cellulitis that patient was receiving treatment for. In addition patient may also receive ILD, noninfectious pneumonitis, but most commonly decreased appetite, fever, nausea vomiting, diarrhea, stomatitis and epistaxis. Letrozole which patient is currently taking may cause bone pain and osteoarthritis as well as nausea, fractures, fatigue, most serious side effect are PR, thromboembolism, stroke, angina and hypertension. On patient CT chestBilateral there are rib fractures that are subacute and healed, may be because of Pleuritic chest pain and may be induced by letrozole. 6. 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 Has had a history of pancytopenia in the past however no evidence of neutropenia or fever. MCV elevated, no evidence of GI bleeding, will order iron studies, occult blood test, transfuse under a liberal threshold of less than 8 g/dL due to underlying coronary disease with a history of CABG. 7. Left toe diabetic non-healing Ulcer Patient states that she had a traumatic toe injury which essentially bled around the perungual region of left toe. Patient's x-ray to the left great toe shows s oft tissue swelling with some small superficial ulcer medial to the MTP joint. No evidence of osteomyelitis. Osteoarthritis present. Patient is status post a 10-day course of doxycycline. Would cover with either Rocephin or Ancef. Uric acid to rule out acute gouty arthropathy. Wound care consultation 8. Bilateral Lower extremity cyanotic digits Due to patient's underlying history of diabetic neuropathy, and RVR A. fib concern for thromboembolic events with ischemic limb present with cyanosis of patient's bilateral toes with nonhealing ulcers with callus formation. Concern for peripheral vascular disease as well. Does not appear to be a Charcot joint nor gouty arthropathy as it lacks warmth, and shiny appearance. Obtain a ESR. Obtain JUDY with bilateral arterial Doppler studies. Will obtain wound care consultation. 9. History of PE/DVT with history of IVC filter placement and prior anticoagulation Currently contraindicated to receive anticoagulation with a NOAC or Coumadin. Patient will be rhythm controlled and possibly rate controlled with IV diltiazem and is at risk for thromboembolic event. Patient does however meet criteria for DVT prophylaxis as she has high risk for DVT due to active cancer 10. Stage IV breast cancer with mets to lung on active chemo/immunotherapy Patient was initially diagnosed in 2008 and was initially treated with anastrozole. At that time of progression patient had developed hemoptysis which required hospitalization on 05/26 for pulmonary hemorrhaging which required being off of anticoagulation despite her history of A. fib with prior history of DVT/PE. She was then treated with paclitaxel starting on 06/05/2018 for 6 cycles followed by radiation treatment to the lung lesion. Patient is currently now on letrozole and Ibrance as of 09/11/2018. She tolerated the first cycle well. Patient has adequate counts and being followed up by primary hematology/oncology and was instructed to proceed with cycle 2 however to hold them Brandts if patient has active infection to the left toe. 11. Insulin requiring type [address] on insulin sliding scale correctional dose moderate, along with basal coverage. Hemoglobin A1c to follow. Carb controlled diet. 12. Hypertension Patient was on Toprol XL for her chronic atrial fibrillation, was on Lasix as well as lisinopril which are currently on hold due to acute kidney injury. 13. Hyperlipidemia Would continue with pravastatin. 14. Coronary disease status post CABG Continue with aspirin, pravastatin, Toprol-XL on hold for now. Patient's first set of troponin was 0.04 which represents some demand. Obtain EKG. Echocardiogram to follow. Secondary prevention and control modifiable risk factors. Nitroglycerin as needed for chest pain however patient has labile blood pressures and will watch closely. 15. Chronic pain Patient does have a history of chronic opioid use and will continue for pain relief. Patient has chronic back pain as well as spinal stenosis. Arthralgias to the right hip and also left toe pain. Lyrica may help with this type of neuropathic type pain. 16. Advance care education counseling, Planning Patient's goals of care, medical conditions, and trajectory of illness were discussed and patient is adamant of full CODE STATUS. Would entertain palliative care service to talk about further in detail and discussions on CODE STATUS, other options such as hospice, and current medical conditions with treatments as this could exchange operator the course of several months. DVT/GI prophylaxis initiated; Lovenox started as risk of DVT due to cancer state present. Famotidine was started. CODE STATUS: Full code Critical care time: 30 minutes Core Measures - Anticipated LOS I expect patient to be DC'd or transferred within 96 hours.: Yes - Issues Hospital Issues and Management Plan: Patient with multiple medical conditions that require IV antibiotics, rate and rhythm control agents, medical management, IV fluids, possible VQ scanning as patient has underlying history of DVT/PE. Palliative care consultation - DVT/VTE - Prophylaxis VTE/DVT Device ordered at admit?: Yes VTE/DVT Prophylaxis med ordered at admit?: Yes - Stroke - Rehab Assessment Rehab services assessment to be ordered?: No Not Ordered - Medical Reason: Not indicated - AMI - Statin at Admit Aspirin Prescribed on Admit: No Not Ordered - Medical Reason: Not indicated
--- NOTE | 2018-11-18 17:44 | XRAY Report ---
Reason: eval for osteomyelitis Procedure Date: 11/18/2018 Accession Number: [id number] / [id number] Procedure: XR - Toe(s) LT CPT Code: FULL RESULT: EXAM: LEFT GREAT TOE RADIOGRAPHY EXAM DATE: 11/18/2018 05:09 PM. CLINICAL HISTORY: Infection lateral to MTP joint. Concerned for osteomyelitis. COMPARISON: None. TECHNIQUE: 3 views. FINDINGS: Bones: No traumatic or destructive bony abnormalities. No erosions or periostitis identified. Joints: Narrowing, sclerosis, and spurring, MTP joint greater than IP joint. No subluxations. Soft Tissues: Soft tissue swelling with small superficial ulcer medial to the MTP joint. IMPRESSION: 1. Small soft tissue ulcer, with no radiographic signs of osteomyelitis. 2. Osteoarthritis. RADIA
[2018-11-18] MEDS: SODIUM CHLORIDE 0.9% 1,000 ML IV SCH (17:50)
--- NOTE | 2018-11-18 17:54 | CT Report ---
Reason: hypoxia, Left lung mass vs infection Procedure Date: 11/18/2018 Accession Number: [id number] / [id number] Procedure: CT - CHEST WO CPT Code: FULL RESULT: EXAM: CT CHEST EXAM DATE: 11/18/2018 04:39 PM. CLINICAL HISTORY: Hypoxia, Left lung mass vs infection. COMPARISONS: CHEST W/ 07/01/2018 10:59 AM. TECHNIQUE: Routine helical CT imaging was performed through the chest. IV contrast: None. Reconstructions: Coronal and sagittal. In accordance with CT protocol optimization, one or more of the following dose reduction techniques were utilized for this exam: automated exposure control, adjustment of mA and/or KV based on patient size, or use of iterative reconstructive technique. FINDINGS: Lungs/Pleura: Significant interval improvement in previously seen cavitary opacity in the right apex with interval decrease in size of cavitation. Ill-defined parenchymal/airspace opacities in right upper lobe are perhaps slightly increased since prior. There are increased small bilateral pleural effusions with increased hazy atelectatic and groundglass opacities in both lung bases, left greater than right, new since prior. Subpleural radiation fibrosis is seen in left upper lobe. Mediastinum: Few subcentimeter lymph nodes in the mediastinum, not enlarged by size criteria. The heart and great vessels are normal. Bones: Subacute mildly displaced fractures at angle of left sixth and seventh ribs noted. Multiple healed bilateral rib fractures noted. Visualized Abdomen: Unremarkable. Other: Surgical clips are seen within the glandular tissues of left breast with a small ill-defined nodule with surgical clips, measuring approximately 16 mm and unchanged since prior. To be correlated with mammographic diagnostic studies. IMPRESSION: Significant interval improvement in previously seen cavitary opacity in right apex with interval decrease in size of cavitation. However ill-defined parenchymal/airspace opacities (inflammatory versus infectious) in right upper lobe are slightly increased since prior. Increased groundglass opacities (infectious or inflammatory pneumonitis) in left lower lobe, not likely to be neoplastic. Increased small bilateral pleural effusions. Subacute and chronic bilateral rib fractures as described above. RADIA
[2018-11-18] MEDS ORDERED: diltiaZEM INJ 125 MG in DEXTROSE 5% 100 ML IV SCH (18:00)
[2018-11-18] MEDS: INSULIN ASPART 300 UNIT/3 ML PEN SUBQ SCH ×2 (18:15→20:54)
[2018-11-18] MEDS: SODIUM CHLORIDE FLUSH 0.9% 10 ML SYRINGE IVP SCH (18:16)
[2018-11-18] MEDS ORDERED: DIGOXIN 500 MCG/2 ML AMP IVP STA (18:44)
[2018-11-18 20:27] LABS: % IRON SATURATION 6 % (20-50); IRON 13 ug/dL (28-170); TOTAL IRON BINDING CAPACITY 217 ug/dL (250-450); TRANSFERRIN 155 mg/dL (192-382)
[2018-11-18] MEDS: FAMOTIDINE 20 MG TABLET PO SCH (20:53)
[2018-11-18] MEDS: VENLAFAXINE 37.5 MG TABLET PO SCH (20:54)
[2018-11-18] MEDS: INSULIN GLARGINE 300 UNIT/3 ML PEN SUBQ SCH (20:54)
[2018-11-19] MEDS: DIGOXIN 500 MCG/2 ML AMP IVP SCH ×2 (01:17→06:47)
[2018-11-19] MEDS: SODIUM CHLORIDE FLUSH 0.9% 10 ML SYRINGE IVP SCH ×4 (01:17→23:50)
[2018-11-19] MEDS: oxyCODONE 5 MG TABLET PO PRN ×3 (04:15→21:21)
[2018-11-19] MEDS ORDERED: oxyCODONE 5 MG TABLET ONE (04:19)
[2018-11-19 05:54] LABS: BUN - BLOOD UREA NITROGEN 45 mg/dL (6-20); CALCIUM 9.2 mg/dL (8.5-10.3); CARBON DIOXIDE - CO2 26 mmol/L (21-32); CHLORIDE 101 mmol/L (101-111); CREATININE 1.8 mg/dL (0.4-1.0); DIGOXIN 0.6 ng/mL; GFR - MDRD 27 (>89); GLUCOSE 124 mg/dL (70-100); SODIUM 139 mmol/L (135-145)
[2018-11-19] MEDS: SODIUM CHLORIDE 0.9% 1,000 ML IV SCH (06:47)
[2018-11-19] MEDS: INSULIN ASPART 300 UNIT/3 ML PEN SUBQ SCH ×4 (07:58→20:11)
[2018-11-19] MEDS: ALLOPURINOL 100 MG TABLET PO SCH (08:30)
[2018-11-19] MEDS: DIGOXIN 125 MCG TABLET PO SCH (08:31)
[2018-11-19] MEDS: FAMOTIDINE 20 MG TABLET PO SCH (08:31)
[2018-11-19] MEDS: ASPIRIN EC 81 MG TABLET PO SCH (08:31)
[2018-11-19] MEDS: VENLAFAXINE 37.5 MG TABLET PO SCH ×2 (08:32→20:10)
[2018-11-19] MEDS: ENOXAPARIN 30 MG/0.3 ML SYRINGE SUBQ SCH (08:40)
[2018-11-19] MEDS ORDERED: FERRIC GLUCONATE 125 MG in SODIUM CHLORIDE 0.9% 100ML 100 ML IV ONE (10:00)
--- NOTE | 2018-11-19 10:59 | Ultrasound Report ---
Reason: Bilateral toes cyanotic Procedure Date: 11/19/2018 Accession Number: [id number] / [id number] Procedure: US - Duplex Lwr Ext Arterial Bilat CPT Code: FULL RESULT: EXAM: RIGHT LOWER EXTREMITY ARTERIAL DOPPLER ULTRASOUND EXAM DATE: 11/19/2018 12:46 AM. CLINICAL HISTORY: Bilateral toes cyanotic. COMPARISON: None. TECHNIQUE: Real-time sonographic vascular imaging was performed by the hose sprayer, utilizing color-flow, Doppler flow, and spectral analysis. Multiple textile designs sales representative static images were saved for review. Because of severe patient discomfort, evaluation of the infrapopliteal right leg small vessels, and the entire left lower extremity, could not be completed. FINDINGS: There is no evidence of right iliac inflow disease. Peak systolic velocities of the right common femoral artery, right profunda femoris artery, and most of the right superficial femoral artery are less than 125 cm/s. As stated above, the remainder of the right leg arterial system cannot be evaluated. Bilateral ABIs were performed and are 0.89 on the right and 1.06 on the left. Right Lower Extremity: SLICING MACHINE TENDER: PSV 124 cm/sec. Biphasic waveform. PSFA: PSV 81 cm/sec. Biphasic waveform. MSFA: PSV 75 cm/sec. Biphasic waveform. PFA: PSV 100 cm/sec. Biphasic waveform. IMPRESSION: 1. Limited exam due to severe patient discomfort. 2. No evidence of right iliac inflow stenosis. Unremarkable examination of the right profunda and right superficial femoral artery. 3. The JUDY in both lower extremities is within normal limits. RADIA
--- NOTE | 2018-11-19 11:02 | Nuclear Medicine Report ---
Reason: Elevated d-dimer with hypoxemia, hypotension Procedure Date: 11/19/2018 Accession Number: [id number] / [id number] Procedure: NM - Lung Vent/Perf V/Q CPT Code: FULL RESULT: EXAM: VENTILATION/PERFUSION SCAN (V/Q SCAN) EXAM DATE: 11/19/2018 10:42 AM. CLINICAL HISTORY: Elevated d-dimer with hypoxemia, hypotension. COMPARISON: CHEST 1 VIEW 11/18/2018 3:41 PM. TECHNIQUE: Patient was administered 32.9 mCi of technetium 99m DTPA aerosol by inhalation and 8 standard ventilation images of the lungs were obtained. Next, the patient was injected with 5.1 mCi of technetium 99m MAA intravenously and 8 standard perfusion images of the lungs were obtained. FINDINGS: Perfusion images demonstrate heterogeneous perfusion to the lungs bilaterally . There is a large right upper lobe perfusion deficit. Ventilatory images demonstrate moderate central airway deposition consistent with obstructive pulmonary physiology with overall substantially worse but otherwise corresponding radiotracer distribution. No convincing mismatch. Comparison chest radiograph demonstrates right upper lobe interstitial opacity, bibasal pleural thickening or small effusions. IMPRESSION: 1. No ventilation/perfusion mismatches to indicate pulmonary emboli. Low probability for acute pulmonary embolism. 2. Moderate central airway radiotracer deposition consistent with obstructive pulmonary physiology. RADIA
[2018-11-19] MEDS: POLYETHYLENE GLYCOL 3350 17 GM PACKET PO SCH (11:06)
--- NOTE | 2018-11-19 11:19 | MISCELLANEOUS PROVIDER NOTE ---
Miscellaneous Provider Note - - Note: HPI Comment/Other: This is a 83-year-old female with a complicated past medical history significant for stage IV metastatic breast carcinoma, Initially diagnosed in 2009 status post chemotherapy with active treatment with letrozole and immunotherapy (Ibrance) as of 11/04/18. Please refer to Dr. Joseph as note dated 10/07/2018 for more detailed summary and course of patient's breast carcinoma. 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 She also has a history of Immuno/chemo induced anemia, pancytopenia. 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 Heidi Joseph with last seen on 11/04/2018. She was [place] [facility] due to abnormalities in her labs with some weakness, shortness of breath and a suspected toe infection. She is also complaining of pleuritic type chest pain. Patient presented in RVR A. fib in the 130s and was given 1 dose of IV Lopressor in the ED, she was 84% O2 saturation on room air for which she corrected with a 2 L nasal cannula to 96%. Patient became hypotensive after getting 1 dose of 5 mg IV Lopressor. Her heart rate did improve to the 110s to 115's. On exam patient was with increased work of breath and ill-appearing noted to have RVR A. fib and with a creatinine of 2.1, BNP of 389, hemoglobin 11.4, chest x-ray showing small pleural effusions with cardiomegaly and right upper lobe opacity with lateral pleural thickening. Her troponin was 0.04 and a lactic acid was 1.6. Patient does have a history of chronic kidney disease for which her baseline ranges between 1.1-1.7. Her last echocardiogram was on 01/20 which shows mild LVH with an EF of 65%. Patient had a CT chest without contrast due to her creatinine ordered as well as a x-ray to her toe to rule out underlying osteomyelitis. Subjective: Patient seen at bedside with improvement to respiratory status as well as RVR atrial fibrillation. Patient denies chest pain, still has some shortness of breath with wheezing, mild nonproductive cough, no abdominal pain, fevers, maculopapular rashes, joint effusion or pain to extremities, GI or symptoms. Objective: Vital signs hemodynamically stable, afebrile, heart rate variable 9210 bpm atrial fibrillation, blood pressure 117/72, RR 23, 93% O2 saturation on 2 L nasal cannula General Appearance: positive: Alert, Chronically ill-appearing. Morbidly obese. Patient in no acute respiratory distress. Eyes Bilateral: positive: Normal inspection, PERRL, EOMI, Conjunctivae nml, No scleral icterus ENT: positive: ENT inspection nml, Pharynx nml, Dry mucous membranes. negative: Oral lesions Neck: positive: Nml inspection, Thyroid nml, No JVD, Trachea midline. negative: Thyromegaly, Carotid bruit, Tracheal deviation Respiratory: positive: Chest non-tender, No respiratory distress, Rales (Faint to the right versus the left), Rhonchi (Decreased breath sounds with prolonged expiratory rhonchi), Other (No retractions or increased work of breath.). negative: Wheezes Cardiovascular: positive: No murmur, No gallop, Irregularly irregular, Tachycardia. negative: JVD present, Gallop/S3, Friction rub Peripheral Pulses: positive: 1+ (Patient has Doppler pulses bilaterally) Abdomen: positive: Non-tender, No organomegaly, Nml bowel sounds, No distention. negative: Tenderness Skin: positive: Color nml, No rash, Dry, Cyanosis (Cyanotic digits with associated ulcerations to the toes), Pallor Extremities: Left medial first metatarsophalangeal joint callus with shallow ulcer with no necrotic borders. Right first metatarsal phalangeal joint with medial small black eschar. positive: Non-tender, Full ROM, Other (Patients with cyanotic digits Bilateral toes with ulcerations, does not appear erythematous, there is erythema around left toe laterally. No necrotic borders. No bulla.). negative: Pedal edema, Calf tenderness Neurologic/Psychiatric: positive: Oriented x3, CN's nml (2-12) Labs: Reviewed Imaging studies: Reviewed Assessment/plan: 1. Acute hypoxemic respiratory failure associated with Pneumonitis This is likely multifactorial however I query on patient's Ibrance induced pneumonitis. Patient CT without contrast shows a 16 mm and unchanged small ill- defined nodule. Significant interval improvement in previous seen cavitary opacity in the right apex with interval decrease in size of cavitation. Ill- defined parenchyma/air space opacities in the right upper lobe are slightly increased since prior. Increased groundglass opacities in the left lower lobe not likely to be neoplastic. Increased small bilateral pleural effusions. There is a subacute and chronic bilateral rib fractures. These may be pathological. However letrozole induced fractures cannot be excluded. Ibrance may cause interstitial lung disease with pneumonitis-noninfectious. Patient lacks fever, elevated white count but does have pleuritic chest pain. Continue with current management, Xopenex, Add Pulmicort to regimen. D-dimer markedly elevated. VQ scan shows no ventilation/perfusion mismatches to indicate pulmonary emboli. Low probability for acute pulmonary embolism. Moderate central airway radiotracer deposition consistent with obstructive pulmonary physiology. May give systemic steroids however this will most certainly cause hyperglycemic excursions.. 2. RVR atrial fibrillation Status post IV digoxin load with maintenance; Improved Patient was given 50% of initial digoxin 15 mcg/kg dose IV x1 then 25% of initial loading dose every 6 hours x2 dose and now on maintenance. Patient was placed on diltiazem drip and this will be held for IV iron infusion. TSH/magnesium levels normal. Echocardiogram Preliminary report shows 50 to 55% ejection fraction with no motion wall abnormality. No structural heart disease. Digoxin level Shown to be subtherapeutic @0.6. [address] on diltiazem 30 mg p.o. 4 times daily and stop dilt gtt. CHadsvasc is 5 points which translates to 7.2% stroke risk per year. Would not be an ideal candidate for it for anticoagulation. HASBLED is 3 points which places her at a high risk of major bleeding. 3. Bilateral pleural effusion secondary to #2 and contributing to #1 BNP of 389 likely as result of RVR A. fib with effusions. May be malignant as well. All of the the differential diagnosis would be pulmonary embolism VQ scan shows low probability. Moderate central airway radiotracer deposition consi stent with obstructive pulmonary physiology. Patient may need Lasix however due to acute kidney injury will hold off for now. 4. Acute kidney injury superimposed on chronic kidney disease stage III Perfuse kidneys with judicious IV fluids, avoid fluid overload as elevated BNP noted. Patient has underlying chronic kidney disease as evidenced from creatinine being at 1.1-1.7 in [facility]. Patient's creatinine close to baseline. Avoid nephrotoxic agents. Correct underlying electrolyte disturbances. Uric acid was 7.6 and with hyperuricemia but will continue with allopurinol. Consider retroperitoneal ultrasound, To evaluate for uric acid stones or hydronephrosis. 5. Chemo/immuno induced side effects Patient presented to Dr. Joseph's office on 11/04/18 With complaints of left toe pain back then and possibly related to side effects with arthralgias and complaint of right hip pain. Continue to control pain with narcotics plus or minus Lyrica or Flexeril. Currently on letrozole as patient was instructed to hold off on cycle #2 of Ibrance since this was likely causing myelosuppression with serious infection such as a left toe cellulitis that patient was receiving treatment for. Patient may of had a noninfectious pneumonitis/interstitial lung disease from chemo-immuno agents. 6. Multifactorial anemia with macrocytosis Iron deficiency anemia seen on labs. Patient also has chemo induced anemia. Has had a history of pancytopenia in the past however no evidence of neutropenia or fever. MCV elevated, no evidence of GI bleeding, transfuse under a liberal threshold of less than 8 g/dL due to underlying coronary disease with a history of CABG. 7. Left toe diabetic non-healing Ulcer Patient states that she had a traumatic toe injury which essentially bled around the perungual region of left toe. Patient's x-ray to the left great toe shows soft tissue swelling with some small superficial ulcer medial to the MTP joint. No evidence of osteomyelitis. Osteoarthritis present. Patient is status post a 10-day course of doxycycline. Patient currently not on any IV antibiotics. Uric acid was marginally elevated, does have chronic joint changes with some erythema but not cellulitic appearing. Wound care consultation placed. 8. Bilateral Lower extremity cyanotic digits Due to patient's underlying history Chronic A. fib with RVR concern for thromboembolic events with ischemic limb present with cyanosis of patient's bilateral toes with non-healing ulcers with callus formation. Concern for peripheral vascular disease as well. Does not appear to be a Charcot joint nor gouty arthropathy as it lacks warmth, and shiny appearance with marginally elevated uric acid. ESR was marginally elevated to 57. JUDY showed mild disease to the right versus normal JUDY of the left. Bilateral arterial ultrasound shows no significant HD stenosis, however due to patient intolerance the remainder of right leg arterial system could not be evaluated. 9. History of PE/DVT with history of IVC filter placement and prior anticoagulation Currently contraindicated to receive anticoagulation with a NOAC or Coumadin. Patient will be rhythm controlled and possibly rate controlled with IV diltiazem and is at risk for thromboembolic event. Patient does however meet criteria for DVT prophylaxis as she has high risk for DVT due to active cancer. 10. Stage IV breast cancer with mets to lung on active chemo/immunotherapy Patient was initially diagnosed in 2008 and was initially treated with anastrozole. At that time of progression patient had developed hemoptysis which required hospitalization on 05/26 for pulmonary hemorrhaging which required being off of anticoagulation despite her history of A. fib with prior history of DVT/PE. She was then treated with paclitaxel starting on 06/05/2018 for 6 cycles followed by radiation treatment to the lung lesion. Patient is currently now on letrozole and Ibrance as of 09/11/2018. She tolerated the first cycle well. Patient has adequate counts and being followed up by primary hematology/oncology and was instructed to proceed with cycle 2 however to hold Ibrance if patient has active infection to the left toe. However I do not see that patient has infection of left toe. Patient has a malfunctioned left port as indicated by [facility] on 08/25. 11. Insulin requiring type 2 diabetes mellitus Continue with insulin sliding scale correctional dose moderate, along with basal coverage. Hemoglobin A1c to follow. Carb controlled diet. 12. Hypertension Patient was on Toprol XL for her chronic atrial fibrillation, was on Lasix as well as lisinopril which are currently on hold due to acute kidney injury. 13. Hyperlipidemia Would continue with pravastatin. 14. Coronary disease status post CABG Continue with aspirin, pravastatin, Toprol-XL on hold for now. Patient's first set of troponin was 0.04 which represents some demand. Preliminary read for echocardiogram shows ejection fraction 50 to 55% with no motion wall ab normalities. Secondary prevention and control modifiable risk factors. Nitroglycerin as needed for chest pain however patient has labile blood pressures and will watch closely. 15. Chronic pain Patient does have a history of chronic opioid use and will continue for pain relief. Patient has chronic back pain as well as spinal stenosis. Arthralgias to the right hip and also left toe pain. Lyrica may help with this type of neuropathic type pain. 16. Advance care education counseling, Planning Patient's goals of care, medical conditions, and trajectory of illness were discussed and patient is adamant of full CODE STATUS. Would entertain palliative care service to talk about further in detail and discussions on CODE STATUS, other options such as hospice, and current medical conditions with treatments as this could plant changer the course of several months. Unfortunately palliative care services are not available for this week. DVT/GI prophylaxis initiated; Continue with Lovenox due to risk of DVT due to cancer state present. Continue with famotidine. CODE STATUS: Full code
[2018-11-19] MEDS: FERROUS SULFATE 325 MG TABLET PO SCH (17:31)
[2018-11-19] MEDS ORDERED: diltiaZEM 30 MG TABLET PO SCH (18:00)
[2018-11-19] MEDS: LEVALBUTEROL 1.25 MG/3 ML NEB INH PRN (19:25)
[2018-11-19] MEDS: BUDESONIDE 0.5 MG/2 ML NEB INH SCH (19:25)
[2018-11-19] MEDS ORDERED: diltiaZEM INJ 5 MG/ML VIAL IVP ONE ×2 (19:57→21:34)
[2018-11-19] MEDS ORDERED: SODIUM CHLORIDE FLUSH 0.9% 10 ML SYRINGE ONE (20:07)
[2018-11-19] MEDS: SODIUM CHLORIDE FLUSH 0.9% 10 ML SYRINGE IVP PRN ×2 (20:10→21:39)
[2018-11-19] MEDS: INSULIN GLARGINE 300 UNIT/3 ML PEN SUBQ SCH (20:11)
[2018-11-19] MEDS: diltiaZEM 30 MG TABLET PO SCH (23:51)
[2018-11-20] MEDS: diltiaZEM 30 MG TABLET PO SCH ×3 (00:13→11:57)
[2018-11-20 05:42] LABS: BASOPHILS % (AUTO) 0.7 %; EOSINOPHILS # (AUTO) 0.2 10^3/uL (0.0-0.7); EOSINOPHILS % (AUTO) 2.4 %; HGB - HEMOGLOBIN 11.1 g/dL (12.0-16.0); LYMPHOCYTES # (AUTO) 0.5 10^3/uL (1.5-3.5); LYMPHOCYTES % (AUTO) 7.3 %; MEAN CORPUSCULAR HEMOGLOBIN 32.6 pg (27.0-31.0); MEAN CORPUSCULAR HGB CONC 32.2 g/dL (32.0-36.0); MEAN CORPUSCULAR VOLUME 101.1 fL (81.0-99.0); MEAN PLATELET VOLUME 9.6 fL (7.9-10.8); MONOCYTES # (AUTO) 1.6 10^3/uL (0.0-1.0); MONOCYTES % (AUTO) 23.8 %; NEUTROPHILS # (AUTO) 4.4 10^3/uL (1.5-6.6); NEUTROPHILS % (AUTO) 65.8 %; PLT - PLATELET COUNT 293 10^3/uL (130-450); RED BLOOD COUNT 3.39 10^6/uL (4.20-5.40); RED CELL DISTRIBUTION WIDTH 20.1 % (12.0-15.0); WHITE BLOOD COUNT 6.7 x10^3/uL (4.8-10.8)
[2018-11-20 05:56] LABS: ALBUMIN 2.6 g/dL (3.2-5.5); ALBUMIN/GLOBULIN RATIO 0.7 (1.0-2.2); BILIRUBIN,TOTAL 0.3 mg/dL (0.2-1.0); CALCIUM 9.3 mg/dL (8.5-10.3); CREATININE 1.4 mg/dL (0.4-1.0); MAGNESIUM 2.4 mg/dL (1.7-2.8); PHOSPHORUS 3.4 mg/dL (2.5-4.6); TOTAL PROTEIN 6.2 g/dL (6.7-8.2)
[2018-11-20 06:06] LABS: VBG PH 7.334 (7.31-7.41)
[2018-11-20 06:14] LABS: PLATELET ESTIMATE, MANUAL NORMAL (130-450,000) (NORMAL)
[2018-11-20] MEDS: BUDESONIDE 0.5 MG/2 ML NEB INH SCH ×2 (07:43→20:49)
[2018-11-20] MEDS: LEVALBUTEROL 1.25 MG/3 ML NEB INH PRN ×2 (07:43→20:48)
[2018-11-20] MEDS: INSULIN ASPART 300 UNIT/3 ML PEN SUBQ SCH ×4 (08:20→20:56)
[2018-11-20] MEDS: ASPIRIN EC 81 MG TABLET PO SCH (08:20)
[2018-11-20] MEDS: FERROUS SULFATE 325 MG TABLET PO SCH ×2 (08:20→17:15)
[2018-11-20] MEDS: ALLOPURINOL 100 MG TABLET PO SCH (08:20)
[2018-11-20] MEDS: DIGOXIN 125 MCG TABLET PO SCH (08:21)
[2018-11-20] MEDS: FAMOTIDINE 20 MG TABLET PO SCH (08:21)
[2018-11-20] MEDS: POLYETHYLENE GLYCOL 3350 17 GM PACKET PO SCH (08:21)
[2018-11-20] MEDS: oxyCODONE 5 MG TABLET PO PRN ×3 (08:22→20:56)
[2018-11-20] MEDS: VENLAFAXINE 37.5 MG TABLET PO SCH ×2 (08:22→20:56)
[2018-11-20] MEDS: SODIUM CHLORIDE FLUSH 0.9% 10 ML SYRINGE IVP SCH ×3 (08:22→23:38)
[2018-11-20] MEDS: ENOXAPARIN 30 MG/0.3 ML SYRINGE SUBQ SCH (09:01)
[2018-11-20] MEDS: FUROSEMIDE 20 MG/2 ML VIAL IVP SCH ×2 (10:12→16:24)
--- NOTE | 2018-11-20 13:24 | MISCELLANEOUS PROVIDER NOTE ---
Miscellaneous Provider Note - - Note: HPI Comment/Other: This is a 83-year-old female with a complicated past medical history significant for stage IV metastatic breast carcinoma, Initially diagnosed in 2009 status post chemotherapy with active treatment with letrozole and immunotherapy (Ibrance) as of 11/04/18. Please refer to Dr. Joseph as note dated 10/07/2018 for more detailed summary and course of patient's breast carcinoma. 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 She also has a history of Immuno/chemo induced anemia, pancytopenia. 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 Heidi Joseph with last seen on 11/04/2018. She was sent from the [facility] clinic due to abnormalities in her labs with some weakness, shortness of breath and a suspected toe infection. She is also complaining of pleuritic type chest pain. Patient presented in RVR A. fib in the 130s and was given 1 dose of IV Lopressor in the ED, she was 84% O2 saturation on room air for which she corrected with a 2 L nasal cannula to 96%. Patient became hypotensive after getting 1 dose of 5 mg IV Lopressor. Her heart rate did improve to the 110s to 115's. On exam patient was with increased work of breath and ill-appearing noted to have RVR A. fib and with a creatinine of 2.1, BNP of 389, hemoglobin 11.4, chest x-ray showing small pleural effusions with cardiomegaly and right upper lobe opacity with lateral pleural thickening. Her troponin was 0.04 and a lactic acid was 1.6. Patient does have a history of chronic kidney disease for which her baseline ranges between 1.1-1.7. Her last echocardiogram was on 01/20 which shows mild LVH with an EF of 65%. Patient had a CT chest without contrast due to her creatinine ordered as well as a x-ray to her toe to rule out underlying osteomyelitis. Subjective: Patient seen at bedside having been RVR A. fib requiring 50 mg of diltiazem and changing of Cardizem at 60 mg p.o. 4 times daily, denies chest pain, has some audible rhonchi with wheezing at times, mild to moderate shortness of breath requiring supplemental oxygenation up to 3 L nasal cannula. Denies cough, fevers, maculopapular rashes, GI or symptoms. Objective: Vital signs hemodynamically stable, Patient is afebrile, chronic A. fib with variable rates 90s-100s now, RR 25, blood pressure 114/90, 97% O2 saturation on 3 L nasal cannula General Appearance: positive: Alert, Chronically ill-appearing. Morbidly obese. Patient in no acute respiratory distress. Eyes Bilateral: positive: Normal inspection, PERRL, EOMI, Conjunctivae nml, No scleral icterus ENT: positive: ENT inspection nml, Pharynx nml, Moist mucous membranes. negative: Oral lesions Neck: positive: Nml inspection, Thyroid nml, No JVD, Trachea midline. negative: Thyromegaly, Carotid bruit, Tracheal deviation Respiratory: positive: Chest non-tender, No respiratory distress, Improved aeration, No rales, Rhonchi (Decreased breath sounds with prolonged expiratory rhonchi), Other (No retractions or increased work of breath.). negative: Wheezes Cardiovascular: positive: No murmur, No gallop, Irregularly irregular, Tachycardia. negative: JVD present, Gallop/S3, Friction rub Peripheral Pulses: positive: 1+ (Patient has Doppler pulses bilaterally) Abdomen: positive: Non-tender, No organomegaly, Nml bowel sounds, No distention. negative: Tenderness Skin: positive: Color nml, No rash, Dry, Cyanosis (Cyanotic digits with associated ulcerations to the toes), Pallor Extremities: Left medial first metatarsophalangeal joint callus with shallow ulcer with no necrotic borders. Right first metatarsal phalangeal joint with medial small black eschar. positive: Non-tender, Full ROM, Other (Patients with cyanotic digits Bilateral toes with ulcerations, does not appear erythematous, there is erythema around left toe laterally. No necrotic borders. No bulla.). negative: Pedal edema, Calf tenderness Neurologic/Psychiatric: positive: Oriented x3, CN's nml (2-12) Labs: Reviewed Imaging studies: Reviewed Assessment/plan: 1. Acute hypoxemic respiratory failure associated with Pneumonitis; Improved Patient still requiring supplemental oxygenation and is variable due to RVR A. fib. However, likely multifactorial; I query on patient's Ibrance induced pneumonitis. Patient CT without contrast shows a 16 mm and unchanged small ill- defined nodule. Significant interval improvement in previous seen cavitary opacity in the right apex with interval decrease in size of cavitation. Ill- defined parenchyma/air space opacities in the right upper lobe are slightly increased since prior. Increased groundglass opacities in the left lower lobe not likely to be neoplastic. Increased small bilateral pleural effusions. There is a subacute and chronic bilateral rib fractures. These may be pathological. However letrozole induced fractures cannot be excluded. Ibrance may cause interstitial lung disease with pneumonitis-noninfectious. Patient lacks fever, elevated white count but does have pleuritic chest pain. Continue with current management, Xopenex, Add Pulmicort to regimen. D-dimer markedly elevated. VQ scan shows no ventilation/perfusion mismatches to indicate pulmonary emboli. Low probability for acute pulmonary embolism. Moderate central airway radiotracer deposition consistent with obstructive pulmonary physiology. Patient on Pulmicort nebs, xoponex, and will add singulair to regimen. Would initiate a prednisone burst 60 mg p.o. daily x 6d. 2. Chronic atrial fibrillation with RVR; Improved Status post digoxin load with maintenance, status post diltiazem drip with 50 mg IV x1 and now on diltiazem 60 mg p.o. 4 times daily to continue. Patient was placed on diltiazem drip and this will be held for IV iron infusion. TSH/magnesium levels normal. Echocardiogram Preliminary report shows 50 to 55% ejection fraction with no motion wall abnormality. No structural heart disease. CHadsvasc is 5 points which translates to 7.2% stroke risk per year. Would not be an ideal candidate for it for anticoagulation. HASBLED is 3 points which places her at a high risk of major bleeding. 3. Bilateral pleural effusion secondary to #2 and contributing to #1 BNP of 389 likely as result of RVR A. fib with effusions. Will repeat BNP. May be malignant as well. VQ scan was unremarkable. Moderate central airway radiotracer deposition consistent with obstructive pulmonary physiology. Will initiate Lasix at 20 mg IV twice daily. 4. Chronic kidney disease stage III Patient's acute kidney injury has resolved and Patient is at current baseline now. Will initiate IV Lasix. Patient has underlying chronic kidney disease as evidenced from creatinine being at 1.1-1.7 in [facility]. Avoid nephrotoxic agents. Correct underlying electrolyte disturbances. Uric acid was 7.6 and with hyperuricemia but will continue with allopurinol. 5. Chemo/immuno induced side effects Patient presented to Dr. Joseph's office on 11/04/18 With complaints of left toe pain back then and possibly related to side effects with arthralgias and complaint of right hip pain. Continue to control pain with narcotics plus or minus Lyrica or Flexeril. Currently on letrozole as patient was instructed to hold off on cycle #2 of Ibrance since this was likely causing myelosuppression with serious infection such as a left toe cellulitis that patient was receiving treatment for. Patient may of had a noninfectious pneumonitis/interstitial lung disease from chemo-immuno agents. 6. Multifactorial anemia with macrocytosis No precipitous drops in H&H trending. Iron deficiency anemia seen on labs. Patient also has chemo induced anemia. Has had a history of pancytopenia in the past however no evidence of neutropenia or fever. MCV elevated, no evidence of GI bleeding, transfuse under a liberal threshold of less than 8 g/dL due to underlying coronary disease with a history of CABG. 7. Left toe diabetic non-healing Ulcer Patient states that she had a traumatic toe injury which essentially bled around the perungual region of left toe. Patient's x-ray to the left great toe shows soft tissue swelling with some small superficial ulcer medial to the MTP joint. No evidence of osteomyelitis. Osteoarthritis present. Patient is status post a 10-day course of doxycycline. Patient currently not on any IV antibiotics. Uric acid was marginally elevated, does have chronic joint changes with some erythema but not cellulitic appearing. Wound care consultation placed. 8. Bilateral Lower extremity cyanotic digits Due to patient's underlying history Chronic A. fib with RVR concern for thromboembolic events with ischemic limb present with cyanosis of patient's bilateral toes with non-healing ulcers with callus formation. Concern for peripheral vascular disease as well. Does not appear to be a Charcot joint nor gouty arthropathy as it lacks warmth, and shiny appearance with marginally elevated uric acid. ESR was marginally elevated to 57. JUDY showed mild disease to the right versus normal JUDY of the left. Bilateral arterial ultrasound shows no significant HD stenosis, however due to patient intolerance the remainder of right leg arterial system could not be evaluated. 9. History of PE/DVT with history of IVC filter placement and prior anticoagulation Currently contraindicated to receive anticoagulation with a NOAC or Coumadin. Patient will be rhythm controlled and possibly rate controlled with IV diltiazem and is at risk for thromboembolic event. Patient does however meet criteria for DVT prophylaxis as she has high risk for DVT due to active cancer. 10. Stage IV breast cancer with mets to lung on active chemo/immunotherapy Patient was initially diagnosed in 2008 and was initially treated with anastrozole. At that time of progression patient had developed hemoptysis which required hospitalization on 05/26 for pulmonary hemorrhaging which required being off of anticoagulation despite her history of A. fib with prior history of DVT/PE. She was then treated with paclitaxel starting on 06/05/2018 for 6 cycles followed by radiation treatment to the lung lesion. Patient is currently now on letrozole and Ibrance as of 09/11/2018. She tolerated the first cycle well. Patient has adequate counts and being followed up by primary hematology/oncology and was instructed to proceed with cycle 2 however to hold Ibrance if patient has active infection to the left toe. However I do not see that patient has infection of left toe. Patient has a malfunctioned left port as indicated by [facility] on 08/25. Advance care planning has been revised. 11. Insulin requiring type 2 diabetes mellitus Continue with insulin sliding scale correctional dose moderate, along with basal coverage. Hemoglobin A1c to follow. Carb controlled diet. May need to adjust basal and bolus coverage as patient will be on a prednisone burst. 12. Hypertension Patient was on Toprol XL for her chronic atrial fibrillation, Will reinstitute Lasix, continue to hold lisinopril. 13. Hyperlipidemia Would continue with pravastatin. 14. Coronary disease status post CABG Continue with aspirin, pravastatin, Toprol-XL on hold for now. Patient's first set of troponin was 0.04 which represents some demand. Preliminary read for echocardiogram shows ejection fraction 50 to 55% with no motion wall abnormalities. Secondary prevention and control modifiable risk factors. Nitroglycerin as needed for chest pain however patient has labile blood pressures and will watch closely. 15. Chronic pain Patient does have a history of chronic opioid use and will continue for pain relief. Patient has chronic back pain as well as spinal stenosis. Arthralgias to the right hip and also left toe pain. Lyrica may help with this type of neuropathic type pain. Patient has bilateral rib fractures seen on CT chest which patient mentions traumatic falls to her flanks. Left more than the right will apply Lidoderm patch. 16. Deconditioned status secondary to above PT ordered. We will give oxycodone prior to PT to ambulate and improve pain tolerance. 17. Advance care education counseling, Planning Patient's goals of care, medical conditions, and trajectory of illness were discussed and patient. Patient is not now amendable to DNR status however does not want CPR but does not want full treatment to include intubation, advanced airway interventions, mechanical ventilation and cardioversion as indicated. Transfer to hospital if indicated. Includes intensive care. Palliative care service indicated but currently not available. Patient currently is not interested in hospice but is an ideal candidate. DVT/GI prophylaxis initiated; Continue with Lovenox due to risk of DVT due to cancer state present. Continue with famotidine. CODE STATUS: DNR with full treatment, Additional orders (dialysis, blood products, AED, shock, reversible causes)
[2018-11-20] MEDS ORDERED: INSULIN ASPART 300 UNIT/3 ML PEN SUBQ SCH (13:37)
[2018-11-20] MEDS: predniSONE 20 MG TABLET PO SCH (14:27)
[2018-11-20] MEDS: LIDOCAINE PATCH 5% TOP SCH (14:37)
[2018-11-20] MEDS: MONTELUKAST 10 MG TABLET PO SCH (20:56)
[2018-11-20] MEDS ORDERED: INSULIN GLARGINE 300 UNIT/3 ML PEN SUBQ SCH (21:00)
[2018-11-21] MEDS: LEVALBUTEROL 1.25 MG/3 ML NEB INH PRN ×3 (03:43→19:37)
[2018-11-21] MEDS: FUROSEMIDE 20 MG/2 ML VIAL IVP SCH (05:36)
[2018-11-21 05:49] LABS: VBG PH 7.413 (7.31-7.41)
[2018-11-21 05:52] LABS: BASOPHILS % (AUTO) 0.1 %; HGB - HEMOGLOBIN 10.3 g/dL (12.0-16.0); LYMPHOCYTES # (AUTO) 0.2 10^3/uL (1.5-3.5); LYMPHOCYTES % (AUTO) 2.7 %; MEAN CORPUSCULAR HEMOGLOBIN 32.7 pg (27.0-31.0); MEAN CORPUSCULAR HGB CONC 32.3 g/dL (32.0-36.0); MEAN CORPUSCULAR VOLUME 101.2 fL (81.0-99.0); MEAN PLATELET VOLUME 9.9 fL (7.9-10.8); MONOCYTES # (AUTO) 0.3 10^3/uL (0.0-1.0); MONOCYTES % (AUTO) 4.1 %; NEUTROPHILS # (AUTO) 7.6 10^3/uL (1.5-6.6); NEUTROPHILS % (AUTO) 93.1 %; PLT - PLATELET COUNT 309 10^3/uL (130-450); RED BLOOD COUNT 3.15 10^6/uL (4.20-5.40); RED CELL DISTRIBUTION WIDTH 20.3 % (12.0-15.0); WHITE BLOOD COUNT 8.2 x10^3/uL (4.8-10.8)
[2018-11-21 06:02] LABS: ALBUMIN 2.7 g/dL (3.2-5.5); ALBUMIN/GLOBULIN RATIO 0.7 (1.0-2.2); BILIRUBIN,TOTAL 0.6 mg/dL (0.2-1.0); CALCIUM 9.4 mg/dL (8.5-10.3); CREATININE 1.3 mg/dL (0.4-1.0); PHOSPHORUS 3.2 mg/dL (2.5-4.6); TOTAL PROTEIN 6.5 g/dL (6.7-8.2)
[2018-11-21 06:24] LABS: PLATELET ESTIMATE, MANUAL NORMAL (130-450,000) (NORMAL)
[2018-11-21] MEDS ORDERED: guaiFENesin/CODEINE 5 ML UDC PO PRN (07:41)
[2018-11-21] MEDS ORDERED: BENZONATATE 100 MG CAPSULE PO PRN (07:41)
[2018-11-21] MEDS ORDERED: POTASSIUM CHLORIDE 20 MEQ TABLET PO SCH (08:00)
[2018-11-21] MEDS: INSULIN ASPART 300 UNIT/3 ML PEN SUBQ SCH ×4 (08:01→21:06)
--- NOTE | 2018-11-21 08:30 | XRAY Report ---
Reason: Hypoxemia on supplemental oxygen Procedure Date: 11/21/2018 Accession Number: [id number] / [id number] Procedure: XR - Chest 1 View X-Ray CPT Code: 30394 FULL RESULT: EXAM: CHEST RADIOGRAPHY EXAM DATE: 11/21/2018 07:41 AM. CLINICAL HISTORY: Hypoxemia on supplemental oxygen. COMPARISON: CHEST 1 VIEW 11/18/2018 3:41 PM. CHEST W/O 11/18/2018 4:35 PM. TECHNIQUE: 1 view. FINDINGS: Lungs/Pleura: There has been slight interval worsening in airspace opacities in the right upper lobe. There has been mild increase in left-sided pleural effusion in association with elevation of the left hemidiaphragm. Background pulmonary vascular pattern appears prominent and there is likely a mild superimposed edema pattern. Mediastinum: Heart size is upper normal. Mediastinal and hilar contours are stable accounting for technique. Other: Stable appearance of left-sided Port-A-Cath, tip is at the lower third SVC. Stable intact median sternotomy wires. Clips noted in the left axilla. Stable severe arthritis of the left glenohumeral joint. IMPRESSION: 1. Slight interval worsening in fluid status with possible mild edema pattern. 2. Mild interval increase in the airspace opacities right upper lobe. Slight increase in left-sided effusion. RADIA
[2018-11-21] MEDS: BUDESONIDE 0.5 MG/2 ML NEB INH SCH ×2 (08:37→19:37)
[2018-11-21] MEDS: ALLOPURINOL 100 MG TABLET PO SCH (08:44)
[2018-11-21] MEDS: predniSONE 20 MG TABLET PO SCH (08:46)
[2018-11-21] MEDS: FERROUS SULFATE 325 MG TABLET PO SCH ×2 (08:47→16:53)
[2018-11-21] MEDS: VENLAFAXINE 37.5 MG TABLET PO SCH ×2 (08:48→21:06)
[2018-11-21] MEDS: DIGOXIN 125 MCG TABLET PO SCH (08:48)
[2018-11-21] MEDS: ASPIRIN EC 81 MG TABLET PO SCH (08:48)
[2018-11-21] MEDS: FAMOTIDINE 20 MG TABLET PO SCH (08:49)
[2018-11-21] MEDS: SODIUM CHLORIDE FLUSH 0.9% 10 ML SYRINGE IVP SCH ×2 (08:50→16:05)
[2018-11-21] MEDS: POLYETHYLENE GLYCOL 3350 17 GM PACKET PO SCH (08:50)
[2018-11-21] MEDS: ENOXAPARIN 30 MG/0.3 ML SYRINGE SUBQ SCH (09:00)
[2018-11-21] MEDS: methylPREDNISolone SUCCINATE 40 MG/ML VIAL IVP SCH ×3 (09:33→21:06)
[2018-11-21 09:34] LABS: DIGOXIN 1.3 ng/mL
[2018-11-21] MEDS: INSULIN GLARGINE 300 UNIT/3 ML PEN SUBQ SCH ×2 (09:42→21:06)
[2018-11-21] MEDS: LIDOCAINE PATCH 5% TOP SCH ×2 (09:56→14:39)
--- NOTE | 2018-11-21 13:20 | MISCELLANEOUS PROVIDER NOTE ---
Miscellaneous Provider Note - - Note: HPI Comment/Other: This is a 83-year-old female with a complicated past medical history significant for stage IV metastatic breast carcinoma, Initially diagnosed in 2009 status post chemotherapy with active treatment with letrozole and immunotherapy (Ibrance) as of 11/04/18. Please refer to Dr. Joseph as note dated 10/07/2018 for more detailed summary and course of patient's breast carcinoma. 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 She also has a history of Immuno/chemo induced anemia, pancytopenia. 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 Heidi Joseph with last seen on 11/04/2018. She was sent from the [facility] due to abnormalities in her labs with some weakness, shortness of breath and a suspected toe infection. She is also complaining of pleuritic type chest pain. Patient presented in RVR A. fib in the 130s and was given 1 dose of IV Lopressor in the ED, she was 84% O2 saturation on room air for which she corrected with a 2 L nasal cannula to 96%. Patient became hypotensive after getting 1 dose of 5 mg IV Lopressor. Her heart rate did improve to the 110s to 115's. On exam patient was with increased work of breath and ill-appearing noted to have RVR A. fib and with a creatinine of 2.1, BNP of 389, hemoglobin 11.4, chest x-ray showing small pleural effusions with cardiomegaly and right upper lobe opacity with lateral pleural thickening. Her troponin was 0.04 and a lactic acid was 1.6. Patient does have a history of chronic kidney disease for which her baseline ranges between 1.1-1.7. Her last echocardiogram was on 01/20 which shows mild LVH with an EF of 65%. Patient had a CT chest without contrast due to her creatinine ordered as well as a x-ray to her toe to rule out underlying osteomyelitis. Subjective: Patient seen at bedside with overnight event of increased oxygen requirement up to 6 L nasal cannula. Was then down titrated for 4 L nasal cannula ABG was ordered however this was canceled. Patient has a productive cough with no fevers. Intermittent audible wheezes noted. No chest pain. No GI/ symptoms. Objective: Vital signs hemodynamically stable, Patient is afebrile, chronic A. fib with variable rates 90s-100s now, RR 25, blood pressure 114/90, 97% O2 saturation on 3 L nasal cannula General Appearance: positive: Alert, Chronically ill-appearing. Morbidly obese. Patient in no acute respiratory distress. Eyes Bilateral: positive: Normal inspection, PERRL, EOMI, Conjunctivae nml, No scleral icterus ENT: positive: ENT inspection nml, Pharynx nml, Moist mucous membranes. negative: Oral lesions Neck: positive: Nml inspection, Thyroid nml, No JVD, Trachea midline. negative: Thyromegaly, Carotid bruit, Tracheal deviation Respiratory: positive: Chest non-tender, No respiratory distress, Fine scattered rales, Rhonchi (Decreased breath sounds with prolonged expiratory rhonchi), Other (No retractions or increased work of breath.). No discernible wheezing noted. Cardiovascular: positive: No murmur, No gallop, Irregularly irregular, Tachycardia. negative: JVD present, Gallop/S3, Friction rub Peripheral Pulses: positive: 1+ (Patient has Doppler pulses bilaterally) Abdomen: positive: Non-tender, No organomegaly, Nml bowel sounds, No distention. negative: Tenderness Skin: positive: Color nml, No rash, Dry, Cyanosis (Cyanotic digits with associated ulcerations to the toes), Pallor Extremities: Left medial first metatarsophalangeal joint callus with shallow ulcer with no necrotic borders. Right first metatarsal phalangeal joint with medial small black eschar. positive: Non-tender, Full ROM, Other (Patients with cyanotic digits Bilateral toes with ulcerations, does not appear erythematous, there is erythema around left toe laterally. No necrotic borders. No bulla.). negative: Pedal edema, Calf tenderness Neurologic/Psychiatric: positive: Oriented x3, CN's nml (2-12) Labs: Reviewed Imaging studies: Reviewed Assessment/plan: 1. Acute hypoxemic respiratory failure associated with Pneumonitis Chest x-ray has showed progression of airspace opacities and bilateral pleural effusions. Inflammatory versus infectious pneumonitis. Previously on Ibrance. Patient CT without contrast shows a 16 mm and unchanged small ill-defined nodule. Significant interval improvement in previous seen cavitary opacity in the right apex with interval decrease in size of cavitation. Ill-defined parenchyma/air space opacities in the right upper lobe are slightly increased since prior. Increased groundglass opacities in the left lower lobe not likely to be neoplastic. Increased small bilateral pleural effusions. There is a subacute and chronic bilateral rib fractures. These may be pathological. However letrozole induced fractures cannot be excluded. Ibrance may cause interstitial lung disease with pneumonitis-noninfectious. Patient may need bronchoscopy. Patient lacks fever, elevated white count but does have pleuritic chest pain. Will escalate aggressive medical management with IV Solu-Medrol. Continue with current management, Xopenex, Continue with Pulmicort. D-dimer markedly elevated. VQ scan shows no ventilation/perfusion mismatches to indicate pulmonary emboli. Low probability for acute pulmonary embolism. Moderate central airway radiotracer deposition consistent with obstructive pulmonary physiology. Sputum Gram stain and culture with induced sputum with flutter valve. Guaifenesin/codeine/Tessalon antitussive. Continue with Singulair. 2. Chronic atrial fibrillation with RVR; Improved Patient with A. fib a flutter at times on telemetry. Currently on digoxin maintenance dose after receiving a initial load, on diltiazem 60 mg p.o. 4 times daily. Recent EKG shows atrial fibrillation 107 bpm. TSH/magnesium levels normal. Echocardiogram Preliminary report shows 50 to 55% ejection fraction with no motion wall abnormality. No structural heart disease. CHadsvasc is 5 points which translates to 7.2% stroke risk per year. Would not be an ideal candidate for it for anticoagulation. HASBLED is 3 points which places her at a high risk of major bleeding. 3. Bilateral pleural effusion secondary to #2 and contributing to #1; worsening Serial BNPs seem to be improving, will escalate aggressive treatment with Lasix 40 mg IV twice daily. May be malignant as well. VQ scan was unremarkable. Moderate central airway radiotracer deposition consistent with obstructive pulmonary physiology. Due to worsening airspace opacities and pleural effusions may start empiric IV antibiotics, allergic to sulfa and penicillin, likely IV levaquin. 4. Chronic kidney disease stage III Patient's acute kidney injury has resolved and Patient is at current baseline now. Currently on IV Lasix and uptitrated. Slight bump in her creatinine but within her baseline. Patient has underlying chronic kidney disease as evidenced from creatinine being at 1.1-1.7 in [facility]. Avoid nephrotoxic agents. Correct underlying electrolyte disturbances. Uric acid was 7.6 and with hyperuricemia but will continue with allopurinol. 5. Chemo/immuno induced side effects Patient presented to Dr. Joseph's office on 11/04/18 With complaints of left toe pain back then and possibly related to side effects with arthralgias and complaint of right hip pain. Continue to control pain with narcotics plus or minus Lyrica or Flexeril. Currently on letrozole as patient was instructed to hold off on cycle #2 of Ibrance since this was likely causing myelosuppression with serious infection such as a left toe cellulitis that patient was receiving treatment for. Patient may of had a noninfectious pneumonitis/interstitial lung disease from chemo-immuno agents. 6. Multifactorial anemia with macrocytosis No precipitous drops in H&H trending. Iron deficiency anemia seen on labs. Patient also has chemo induced anemia. Has had a history of pancytopenia in the past however no evidence of neutropenia or fever. MCV elevated, no evidence of GI bleeding, transfuse under a liberal threshold of less than 8 g/dL due to underlying coronary disease with a history of CABG. 7. 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 Patient's x-ray to the left great toe shows soft tissue swelling with some small superficial ulcer medial to the MTP joint. No evidence of osteomyelitis. Osteoarthritis present. Patient is status post a 10-day course of doxycycline. Patient currently not on any IV antibiotics. Uric acid was marginally elevated, does have chronic joint changes with some erythema but not cellulitic appearing. Wound care consultation, recommendations or to follow-up as outpatient as needed with no current interventions for now. 8. Bilateral Lower extremity cyanotic digits; resolved Patient initially presented with cyanotic digits and this has resolved now. Does not appear to be a Charcot joint nor gouty arthropathy as it lacks warmth, and shiny appearance with marginally elevated uric acid. ESR was marginally elevated to 57. JUDY showed mild disease to the right versus normal JUDY of the left. Bilateral arterial ultrasound shows no significant HD stenosis, however due to patient intolerance the remainder of right leg arterial system could not be evaluated. 9. History of PE/DVT with history of IVC filter placement and prior anticoagulation Currently contraindicated to receive anticoagulation with a NOAC or Coumadin. Patient will be rhythm controlled and possibly rate controlled with IV diltiazem and is at risk for thromboembolic event. Patient does however meet criteria for DVT prophylaxis as she has high risk for DVT due to active cancer. 10. Stage IV breast cancer with mets to lung on active chemo/immunotherapy Patient was initially diagnosed in 2008 and was initially treated with anastrozole. At that time of progression patient had developed hemoptysis which required hospitalization on 05/26 for pulmonary hemorrhaging which required being off of anticoagulation despite her history of A. fib with prior history of DVT/PE. She was then treated with paclitaxel starting on 06/05/2018 for 6 cycles followed by radiation treatment to the lung lesion. Patient is currently now on letrozole and Ibrance as of 09/11/2018. She tolerated the first cycle well. Patient has adequate counts and being followed up by primary hematology/oncology and was instructed to proceed with cycle 2 however to hold Ibrance if patient has active infection to the left toe. However I do not see that patient has infection of left toe. Patient has a malfunctioned left port as indicated by [facility] on 08/25. Advance care planning has been revised. 11. Insulin requiring type 2 diabetes mellitus Continue with insulin sliding scale correctional dose moderate, along with basal coverage. Hemoglobin A1c to follow. Carb controlled diet. May need to adjust basal and bolus coverage as patient will be on a prednisone burst. 12. Hypertension Patient was on Toprol XL for her chronic atrial fibrillation, Will reinstitute Lasix, continue to hold lisinopril. 13. Hyperlipidemia Would continue with pravastatin. 14. Coronary disease status post CABG Continue with aspirin, pravastatin, on dilt 60mg po qid for R&R control. Patient's first set of troponin was 0.04, second <0.04, echocardiogram shows ejection fraction 50 to 55% with no motion wall abnormalities. Secondary prevention and control modifiable risk factors. Nitroglycerin as needed for chest pain however patient has labile blood pressures and will watch closely. 15. Chronic pain Patient does have a history of chronic opioid use and will continue for pain relief. Patient has chronic back pain as well as spinal stenosis. Arthralgias to the right hip and also left toe pain. Lyrica may help with this type of neuropathic type pain. Patient has bilateral rib fractures seen on CT chest which patient mentions traumatic falls to her flanks. Left more than the right will apply Lidoderm patch. 16. Deconditioned status secondary to above PT ordered. We will give oxycodone prior to PT to ambulate and improve pain tolerance. 17. Advance care education counseling, Planning Patient's goals of care, medical conditions, and trajectory of illness were discussed and patient. Patient is not now amendable to DNR status however does not want CPR but does not want full treatment to include intubation, advanced airway interventions, mechanical ventilation and cardioversion as indicated. Transfer to hospital if indicated. Includes intensive care. Palliative care service indicated but currently not available. Patient currently is not interested in hospice but is an ideal candidate. DVT/GI prophylaxis initiated; Continue with Lovenox due to risk of DVT due to cancer state present. Continue with famotidine. CODE STATUS: Updated DNR/DNI. Will be Additional orders (dialysis, blood products, AED, shock, reversible causes).
[2018-11-21] MEDS ORDERED: levoFLOXacin 500 MG/100 ML 500 MG/100 ML BAG IV ONE (14:00)
[2018-11-21] MEDS ORDERED: FUROSEMIDE 40 MG/4 ML VIAL IVP SCH (14:00)
[2018-11-21] MEDS: POTASSIUM CHLORIDE 10 MEQ CAPSULE PO SCH (16:53)
[2018-11-21] MEDS: oxyCODONE 5 MG TABLET PO PRN (19:44)
[2018-11-21] MEDS: MONTELUKAST 10 MG TABLET PO SCH (21:06)
[2018-11-22] MEDS: SODIUM CHLORIDE FLUSH 0.9% 10 ML SYRINGE IVP SCH ×3 (00:16→14:08)
[2018-11-22 04:46] LABS: VBG PH 7.456 (7.31-7.41)
[2018-11-22 04:48] LABS: BASOPHILS # (AUTO) 0.2 10^3/uL (0.0-0.1); BASOPHILS % (AUTO) 1.3 %; HGB - HEMOGLOBIN 10.7 g/dL (12.0-16.0); LYMPHOCYTES # (AUTO) 0.2 10^3/uL (1.5-3.5); LYMPHOCYTES % (AUTO) 1.3 %; MEAN CORPUSCULAR HEMOGLOBIN 33.3 pg (27.0-31.0); MEAN CORPUSCULAR HGB CONC 33.4 g/dL (32.0-36.0); MEAN CORPUSCULAR VOLUME 99.7 fL (81.0-99.0); MEAN PLATELET VOLUME 9.5 fL (7.9-10.8); MONOCYTES # (AUTO) 0.5 10^3/uL (0.0-1.0); MONOCYTES % (AUTO) 3.5 %; NEUTROPHILS # (AUTO) 12.3 10^3/uL (1.5-6.6); NEUTROPHILS % (AUTO) 93.9 %; PLT - PLATELET COUNT 339 10^3/uL (130-450); RED BLOOD COUNT 3.23 10^6/uL (4.20-5.40); RED CELL DISTRIBUTION WIDTH 20.2 % (12.0-15.0); WHITE BLOOD COUNT 13.1 x10^3/uL (4.8-10.8)
[2018-11-22 05:00] LABS: ALBUMIN 2.8 g/dL (3.2-5.5); ALBUMIN/GLOBULIN RATIO 0.7 (1.0-2.2); BILIRUBIN,TOTAL 0.7 mg/dL (0.2-1.0); CALCIUM 9.6 mg/dL (8.5-10.3); CREATININE 1.5 mg/dL (0.4-1.0); MAGNESIUM 1.9 mg/dL (1.7-2.8); PHOSPHORUS 3.4 mg/dL (2.5-4.6); TOTAL PROTEIN 6.8 g/dL (6.7-8.2)
[2018-11-22] MEDS: methylPREDNISolone SUCCINATE 40 MG/ML VIAL IVP SCH ×3 (05:58→21:53)
[2018-11-22] MEDS: oxyCODONE 5 MG TABLET PO PRN ×2 (05:58→22:30)
[2018-11-22] MEDS ORDERED: ALENDRONATE 70 MG TABLET PO SCH (06:30)
[2018-11-22] MEDS: LEVALBUTEROL 1.25 MG/3 ML NEB INH PRN ×2 (07:21→20:07)
[2018-11-22] MEDS: BUDESONIDE 0.5 MG/2 ML NEB INH SCH ×2 (07:21→20:07)
[2018-11-22] MEDS: INSULIN ASPART 300 UNIT/3 ML PEN SUBQ SCH ×4 (08:11→21:25)
[2018-11-22] MEDS: POTASSIUM CHLORIDE 10 MEQ CAPSULE PO SCH (08:30)
[2018-11-22] MEDS: ALLOPURINOL 100 MG TABLET PO SCH (08:40)
[2018-11-22] MEDS: ASPIRIN EC 81 MG TABLET PO SCH (08:41)
[2018-11-22] MEDS: FERROUS SULFATE 325 MG TABLET PO SCH ×2 (08:41→18:28)
[2018-11-22] MEDS: LACTOBACILLUS RHAMNOSUS GG CAPSULE PO SCH (08:41)
[2018-11-22] MEDS: VENLAFAXINE 37.5 MG TABLET PO SCH ×2 (08:42→21:23)
[2018-11-22] MEDS: FAMOTIDINE 20 MG TABLET PO SCH (08:42)
[2018-11-22] MEDS: DIGOXIN 125 MCG TABLET PO SCH (08:42)
[2018-11-22] MEDS: ENOXAPARIN 30 MG/0.3 ML SYRINGE SUBQ SCH (08:43)
[2018-11-22] MEDS: INSULIN GLARGINE 300 UNIT/3 ML PEN SUBQ SCH ×2 (08:54→21:24)
[2018-11-22] MEDS ORDERED: FUROSEMIDE 40 MG/4 ML VIAL IVP SCH (09:00)
[2018-11-22] MEDS: POLYETHYLENE GLYCOL 3350 17 GM PACKET PO SCH (09:00)
[2018-11-22] MEDS: LIDOCAINE PATCH 5% TOP SCH ×2 (09:00→21:23)
[2018-11-22] MEDS: diltiaZEM CD 240 MG CAPSULE PO SCH (10:25)
[2018-11-22] MEDS: MIN OIL/DIMETHICON/COCONUT OIL 92 GM TUBE TOP PRN (11:00)
--- NOTE | 2018-11-22 11:45 | MISCELLANEOUS PROVIDER NOTE ---
Miscellaneous Provider Note - - Note: HPI Comment/Other: This is a 83-year-old female with a complicated past medical history significant for stage IV metastatic breast carcinoma, Initially diagnosed in 2009 status post chemotherapy with active treatment with letrozole and immunotherapy (Ibrance) as of 11/04/18. Please refer to Dr. Joseph as note dated 10/07/2018 for more detailed summary and course of patient's breast carcinoma. 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 She also has a history of Immuno/chemo induced anemia, pancytopenia. She just finished a 10-day course of doxycycline for a suspected left toe cellulitis and was also complaining of right hip pain when she visited her primary sales assistant displays oncologist Dr. Heidi Joseph with last seen on 11/04/2018. She was sent from the [facility] clinic due to abnormalities in her labs with some weakness, shortness of breath and a suspected toe infection. She is also complaining of pleuritic type chest pain. Patient presented in RVR A. fib in the 130s and was given 1 dose of IV Lopressor in the ED, she was 84% O2 saturation on room air for which she corrected with a 2 L nasal cannula to 96%. Patient became hypotensive after getting 1 dose of 5 mg IV Lopressor. Her heart rate did improve to the 110s to 115's. On exam patient was with increased work of breath and ill-appearing noted to have RVR A. fib and with a creatinine of 2.1, BNP of 389, hemoglobin 11.4, chest x-ray showing small pleural effusions with cardiomegaly and right upper lobe opacity with lateral pleural thickening. Her troponin was 0.04 and a lactic acid was 1.6. Patient does have a history of chronic kidney disease for which her baseline ranges between 1.1-1.7. Her last echocardiogram was on 01/20 which shows mild LVH with an EF of 65%. Patient had a CT chest without contrast due to her creatinine ordered as well as a x-ray to her toe to rule out underlying osteomyelitis. Subjective: Patient has maintained her O2 saturations overnight to 3 L nasal cannula, sometimes she does desaturate with increase exertion. No fevers, chest pain, nausea vomiting, GI or symptoms. Patient has updated her POLST. Objective: Vital signs hemodynamically stable, Afebrile, heart rate 98 to 108 bpm in atrial fibrillation, blood pressure 134/105 (154/97), RR 22-24, 95% O2 saturation on 3 L nasal cannula. General Appearance: positive: Alert, Chronically ill-appearing. Morbidly obese. Patient in no acute respiratory distress. Eyes Bilateral: positive: Normal inspection, PERRL, EOMI, Conjunctivae nml, No scleral icterus ENT: positive: ENT inspection nml, Pharynx nml, Moist mucous membranes. negative: Oral lesions Neck: positive: Nml inspection, Thyroid nml, No JVD, Trachea midline. negative: Thyromegaly, Carotid bruit, Tracheal deviation Respiratory: positive: Chest non-tender, No respiratory distress, Fine scattered rales, Rhonchi (Decreased breath sounds with prolonged expiratory rhonchi), Other (No retractions or increased work of breath.). No discernible wheezing noted. Cardiovascular: positive: No murmur, No gallop, Irregularly irregular, Tachycardia. negative: JVD present, Gallop/S3, Friction rub Peripheral Pulses: positive: 1+ (Patient has Doppler pulses bilaterally) Abdomen: positive: Non-tender, No organomegaly, Nml bowel sounds, No distention. negative: Tenderness Skin: positive: Color nml, No rash, Dry, Cyanosis (Cyanotic digits with associated ulcerations to the toes), Pallor Extremities: Left medial first metatarsophalangeal joint callus with shallow ulcer with no necrotic borders. Right first metatarsal phalangeal joint with medial small black eschar. positive: Non-tender, Full ROM, Other (Patients with cyanotic digits Bilateral toes with ulcerations, does not appear erythematous, there is erythema around left toe laterally. No necrotic borders. No bulla.). negative: Pedal edema, Calf tenderness Neurologic/Psychiatric: positive: Oriented x3, CN's nml (2-12) Labs: Reviewed Imaging studies: Reviewed Assessment/plan: 1. Acute hypoxemic respiratory failure associated with Pneumonitis Chest x-ray has showed progression of airspace opacities and bilateral pleural effusions. Inflammatory versus infectious pneumonitis. Previously on Ibrance. Patient CT without contrast shows a 16 mm and unchanged small ill-defined nodule. Significant interval improvement in previous seen cavitary opacity in the right apex with interval decrease in size of cavitation. Ill-defined parenchyma/air space opacities in the right upper lobe are slightly increased since prior. Increased groundglass opacities in the left lower lobe not likely to be neoplastic. Increased small bilateral pleural effusions. There is a suba cute and chronic bilateral rib fractures. These may be pathological. However letrozole induced fractures cannot be excluded. Ibrance may cause interstitial lung disease with pneumonitis-noninfectious. Patient may need bronchoscopy. Patient lacks fever, Elevated white count now attributable to steroids likely, has mild pleuritic chest pain. Continue with IV Levaquin, Solu-Medrol, glycemic control, Xopenex, Pulmicort, Perforomist, Singulair, flutter valve. D-dimer markedly elevated. VQ scan shows no ventilation/perfusion mismatches to indicate pulmonary emboli. Low probability for acute pulmonary embolism. Moderate central airway radiotracer deposition consistent with obstructive pulmonary physiology. Sputum Gram stain and culture with induced sputum with flutter valve. Guaifenesin/codeine/Tessalon antitussive. 2. Chronic atrial fibrillation with RVR; Improved Patient with A. fib a flutter at times on telemetry. Currently on digoxin maintenance dose after receiving a initial load, Will change diltiazem to 240 mg p.o. daily. Recent EKG shows atrial fibrillation 107 bpm. TSH/magnesium levels normal. Echocardiogram report shows 50 to 55% ejection fraction with no motion wall abnormality. No structural heart disease. CHadsvasc is 5 points which translates to 7.2% stroke risk per year. Would not be an ideal candidate for it for anticoagulation. HASBLED is 3 points which places her at a high risk of major bleeding. Continue with medical management. 3. Bilateral pleural effusion secondary to #2 and contributing to #1; worsening Serial BNPs seem to be improving, will hold lasix due to HAILEE now seen. May be malignant as well. VQ scan was unremarkable. Moderate central airway radiotracer deposition consistent with obstructive pulmonary physiology. We will continue with IV Levaquin, Solu-Medrol as well as pulmonary toileting. 4. HAILEE on Chronic kidney disease stage III Likely secondary to diuretic use. Lasix to hold for now. Slight bump in her creatinine but within her baseline. Patient has underlying chronic kidney disease as evidenced from creatinine being at 1.1-1.7 in [facility]. Avoid nephrotoxic agents. Correct underlying electrolyte disturbances. Uric acid was 7.6 and with hyperuricemia but will continue with allopurinol. 5. Chemo/immuno induced side effects Patient presented to Dr. Joseph's office on 11/04/18 With complaints of left toe pain back then and possibly related to side effects with arthralgias and complaint of right hip pain. Continue to control pain with narcotics plus or minus Lyrica or Flexeril. Currently on letrozole as patient was instructed to hold off on cycle #2 of Ibrance since this was likely causing myelosuppression with serious infection such as a left toe cellulitis that patient was receiving treatment for. Patient may of had a noninfectious pneumonitis/interstitial lung disease from chemo-immuno agents. 6. Multifactorial anemia with macrocytosis No precipitous drops in H&H trending. Iron deficiency anemia seen on labs. Patient also has chemo induced anemia. Has had a history of pancytopenia in the past however no evidence of neutropenia or fever. MCV elevated, no evidence of GI bleeding, transfuse under a liberal threshold of less than 8 g/dL due to underlying coronary disease with a history of CABG. 7. 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 Patient's x-ray to the left great toe shows soft tissue swelling with some small superficial ulcer medial to the MTP joint. No evidence of osteomyelitis. Osteoarthritis present. Patient is status post a 10-day course of doxycycline. Patient currently not on any IV antibiotics. Uric acid was marginally elevated, does have chronic joint changes with some erythema but not cellulitic appearing. Wound care consultation, recommendations or to follow-up as outpatient as needed with no current interventions for now. 8. Bilateral Lower extremity cyanotic digits; resolved Patient initially presented with cyanotic digits and this has resolved now. Does not appear to be a Charcot joint nor gouty arthropathy as it lacks warmth, and shiny appearance with marginally elevated uric acid. ESR was marginally elevated to 57. JUDY showed mild disease to the right versus normal JUDY of the left. Bilateral arterial ultrasound shows no significant HD stenosis, however due to patient intolerance the remainder of right leg arterial system could not be evaluated. 9. History of PE/DVT with history of IVC filter placement and prior anticoagulat ion Currently contraindicated to receive anticoagulation with a NOAC or Coumadin. Patient will be rhythm controlled and possibly rate controlled with IV diltiazem and is at risk for thromboembolic event. Patient does however meet criteria for DVT prophylaxis as she has high risk for DVT due to active cancer. 10. Stage IV breast cancer with mets to lung on active chemo/immunotherapy Patient was initially diagnosed in 2008 and was initially treated with anastrozole. At that time of progression patient had developed hemoptysis which required hospitalization on 05/26 for pulmonary hemorrhaging which required being off of anticoagulation despite her history of A. fib with prior history of DVT/PE. She was then treated with paclitaxel starting on 06/05/2018 for 6 cycles followed by radiation treatment to the lung lesion. Patient is currently now on letrozole and Ibrance as of 09/11/2018. She tolerated the first cycle well. Patient has adequate counts and being followed up by primary h ematology/oncology and was instructed to proceed with cycle 2 however to hold Ibrance if patient has active infection to the left toe. However I do not see that patient has infection of left toe. Patient has a malfunctioned left port as indicated by [facility] clinic on 08/25. Advance care planning has been revised. 11. Hyperglycemia with Insulin requiring type 2 diabetes mellitus Exacerbated by steroid use now. Continue with insulin sliding scale correctional dose moderate, along with basal coverage. Hemoglobin A1c to follow. Carb controlled diet. May need to adjust basal and bolus coverage as patient will be on IV solumedrol. 12. Hypertension Patient was on Toprol XL for her chronic atrial fibrillation, Currently on digoxin and diltiazem now. Hold Lasix. Hold lisinopril. 13. Hyperlipidemia Would continue with pravastatin. 14. Coronary disease status post CABG Continue with aspirin, pravastatin, on dilt 60mg po qid for R&R control. Patient's first set of troponin was 0.04, second <0.04, echocardiogram shows ejection fraction 50 to 55% with no motion wall abnormalities. Secondary prevention and control modifiable risk factors. Nitroglycerin as needed for chest pain however patient has labile blood pressures and will watch closely. 15. Chronic pain Patient does have a history of chronic opioid use and will continue for pain relief. Patient has chronic back pain as well as spinal stenosis. Arthralgias to the right hip and also left toe pain. Lyrica may help with this type of neuropathic type pain. Patient has bilateral rib fractures seen on CT chest which patient mentions traumatic falls to her flanks. Left more than the right will apply Lidoderm patch. 16. Deconditioned status secondary to above PT following closely.We will give oxycodone prior to PT to ambulate and improve pain tolerance. Will need Home Health Services on discharge. 17. Advance care education counseling, Planning Patient's goals of care, medical conditions, and trajectory of illness were discussed and patient. Patient's POLST has been updated and now is a DNR/DNI with undecided on dialysis does want blood products, IV antibiotic, AED and does not want G-tube or artificial nutrition. Palliative care service indicated but currently not available. Patient currently is not interested in hospice but is an ideal candidate. DVT/GI prophylaxis initiated; Continue with Lovenox due to risk of DVT due to cancer state present. Continue with famotidine. CODE STATUS: Updated to DNR/DNI. Selective treatment was selected on POLST.
[2018-11-22] MEDS: FORMOTEROL FUMARATE NEB 20 MCG/2 ML INH SCH ×2 (12:56→20:07)
[2018-11-22] MEDS ORDERED: METOPROLOL 5 MG/5 ML VIAL IVP PRN (14:45)
[2018-11-22] MEDS: MONTELUKAST 10 MG TABLET PO SCH (21:23)
[2018-11-23] MEDS: LEVALBUTEROL 1.25 MG/3 ML NEB INH PRN ×3 (00:13→19:34)
[2018-11-23] MEDS: SODIUM CHLORIDE FLUSH 0.9% 10 ML SYRINGE IVP SCH ×4 (00:33→22:07)
[2018-11-23] MEDS ORDERED: MORPHINE 2 MG/ML SYRINGE IVP PRN (01:00)
[2018-11-23 05:23] LABS: BASOPHILS % (AUTO) 0.1 %; HGB - HEMOGLOBIN 10.9 g/dL (12.0-16.0); LYMPHOCYTES # (AUTO) 0.2 10^3/uL (1.5-3.5); LYMPHOCYTES % (AUTO) 1.4 %; MEAN CORPUSCULAR HEMOGLOBIN 31.7 pg (27.0-31.0); MEAN CORPUSCULAR HGB CONC 31.3 g/dL (32.0-36.0); MEAN CORPUSCULAR VOLUME 101.3 fL (81.0-99.0); MEAN PLATELET VOLUME 9.2 fL (7.9-10.8); MONOCYTES # (AUTO) 0.8 10^3/uL (0.0-1.0); MONOCYTES % (AUTO) 4.8 %; NEUTROPHILS # (AUTO) 15.2 10^3/uL (1.5-6.6); NEUTROPHILS % (AUTO) 93.7 %; PLT - PLATELET COUNT 367 10^3/uL (130-450); RED BLOOD COUNT 3.43 10^6/uL (4.20-5.40); RED CELL DISTRIBUTION WIDTH 20.5 % (12.0-15.0); WHITE BLOOD COUNT 16.3 x10^3/uL (4.8-10.8)
[2018-11-23 05:30] LABS: BUN - BLOOD UREA NITROGEN 50 mg/dL (6-20); CARBON DIOXIDE - CO2 26 mmol/L (21-32); CHLORIDE 102 mmol/L (101-111); CREATININE 1.4 mg/dL (0.4-1.0); GFR - MDRD 36 (>89); GLUCOSE 256 mg/dL (70-100); PHOSPHORUS 3.3 mg/dL (2.5-4.6); SODIUM 141 mmol/L (135-145)
[2018-11-23] MEDS: methylPREDNISolone SUCCINATE 40 MG/ML VIAL IVP SCH ×3 (05:45→22:07)
[2018-11-23] MEDS: FORMOTEROL FUMARATE NEB 20 MCG/2 ML INH SCH ×2 (07:17→19:34)
[2018-11-23] MEDS: BUDESONIDE 0.5 MG/2 ML NEB INH SCH ×2 (07:17→19:35)
[2018-11-23] MEDS: MORPHINE 2 MG/ML CARPUJECT IVP PRN ×3 (08:03→22:54)
[2018-11-23] MEDS: INSULIN ASPART 300 UNIT/3 ML PEN SUBQ SCH ×4 (08:06→21:12)
[2018-11-23] MEDS: DIGOXIN 125 MCG TABLET PO SCH (08:19)
[2018-11-23] MEDS: FAMOTIDINE 20 MG TABLET PO SCH (08:20)
[2018-11-23] MEDS: FERROUS SULFATE 325 MG TABLET PO SCH ×2 (08:21→17:45)
[2018-11-23] MEDS: diltiaZEM CD 240 MG CAPSULE PO SCH (08:21)
[2018-11-23] MEDS: LACTOBACILLUS RHAMNOSUS GG CAPSULE PO SCH (08:21)
[2018-11-23] MEDS: ASPIRIN EC 81 MG TABLET PO SCH (08:21)
[2018-11-23] MEDS: ENOXAPARIN 30 MG/0.3 ML SYRINGE SUBQ SCH (08:29)
[2018-11-23] MEDS ORDERED: ADENOSINE 6 MG/2 ML VIAL IVP ONE ×2 (08:52→09:24)
[2018-11-23] MEDS ORDERED: SODIUM CHLORIDE FLUSH 0.9% 10 ML SYRINGE ONE (08:52)
[2018-11-23] MEDS ORDERED: METOPROLOL SUCCINATE 25 MG TABLET PO SCH (09:00)
[2018-11-23] MEDS ORDERED: ADENOSINE 6 MG/2 ML VIAL IVP STA ×3 (09:24)
[2018-11-23] MEDS ORDERED: diltiaZEM INJ 5 MG/ML VIAL IVP ONE (09:30)
[2018-11-23] MEDS ORDERED: diltiaZEM INJ 5 MG/ML VIAL ONE (09:30)
[2018-11-23] MEDS: diltiaZEM INJ 125 MG in DEXTROSE 5% 100 ML IV SCH (09:56)
[2018-11-23] MEDS ORDERED: diltiaZEM INJ 125 MG in DEXTROSE 5% 100 ML IV SCH ×4 (10:00)
[2018-11-23] MEDS: POLYETHYLENE GLYCOL 3350 17 GM PACKET PO SCH (10:06)
[2018-11-23] MEDS: INSULIN GLARGINE 300 UNIT/3 ML PEN SUBQ SCH ×2 (10:12→21:11)
--- NOTE | 2018-11-23 10:54 | ADVANCE CARE PLANNING NOTE ---
Advance Care Planning - Date/Time Date: 11/23/18 Time: 10:51 - Purpose of encounter Text: To establish goals of care as it relates to medical management - Parties in attendance Parties in attendance: Patient, , RN - Decisional capacity Decisional capacity of: Patient has sound decisional making capacity - Subjective/Patient's story Subjective/Patient's story: Patient has many questions surrounding her medical care however these were answered in full, she states that her does most of her decision however she is if medical decision capacity to do so. She has often "anxiety" with fears of the unknown and that one day she feels fine in the next day she is feeling worse. Throughout hospitalization she was having no episodes of confusion other than trying to sort things out with her spouse in terms of whether she would want DNR/DNI which eventually she decided that she would like this. - Objective/Medical story Objective/Medical Story: This is a 83-year-old female with a complicated past medical history significant for stage IV metastatic breast carcinoma, Initially diagnosed in 2008 status post chemotherapy with active treatment with letrozole and immunotherapy (Ibrance) as of 11/04/18. Please refer to Dr. Joseph as note dated 10/07/2018 for more detailed summary and course of patient's breast carcinoma. 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 She also has a history of Immuno/chemo induced anemia, pancytopenia. She just finished a 10-day course of doxycycline for a suspected left toe cellulitis and was also complaining of right hip pain when she visited her primary custodial laborer oncologist Dr. Heidi Joseph with last seen on 11/04/2018. She was sent from the [facility] [place] due to abnormalities in her labs with some weakness, shortness of breath and a suspected toe infection. She is also complaining of pleuritic type chest pain. Patient presented in RVR A. fib in the 130s and was given 1 dose of IV Lopressor in the ED, she was 84% O2 saturation on room air for which she corrected with a 2 L nasal cannula to 96%. Patient became hypotensive after getting 1 dose of 5 mg IV Lopressor. Her heart rate did improve to the 110s to 115's. On exam patient was with increased work of breath and ill-appearing noted to have RVR A. fib and with a creatinine of 2.1, BNP of 389, hemoglobin 11.4, chest x-ray showing small pleural effusions with cardiomegaly and right upper lobe opacity with lateral pleural thickening. Her troponin was 0.04 and a lactic acid was 1.6. Patient does have a history of chronic kidney disease for which her baseline ranges between 1.1-1.7. Her last echocardiogram was on 01/20 which shows mild LVH with an EF of 65%. Patient had a CT chest without contrast due to her creatinine ordered as well as a x-ray to her toe to rule out underlying osteomyelitis. On 11/23/2018 in a.m. patient had evidence of A. fib a flutter which then converted to sinus tachycardia which then converted to supraventricular tachycardia in the 150s for which patient required attention and ACLS protocol was followed. Patient was hemodynamically stable so no code was called. In addition to her carotid massage, vagal maneuvers. Patient did not respond to these so patient had a 6 mg of adenosine IV push followed by 12 mg x 2 which did slow up the heart rate with some 1 second pauses in between with A. fib a flutter down to the 100s however it then went back up to SVT for which patient received diltiazem 50 mg IV push x1 then placed on a diltiazem drip with titration protocol. Now patient is in RVR A. fib 115-1 20s and resting. She is currently not anticoagulated due to previous hemorrhagic event that occurred to her lungs on 05/26 and has a history of DVT/PE status post IVC filter placement. VQ scan previously was negative/low probability for PE. She continues to have bilateral pleural effusions for which Lasix was initiated aggressively then discontinued due to acute renal insufficiency with a creatinine of 1.5, today is 1.4, BNP however went back up to 343. Will reinitiate Lasix to 20 mg IV twice daily in a.m. On exam patient is hemodynamically stable still requiring up to 3 L nasal cannula at 93 to 95% O2 saturation, in RVR A. fib, blood pressure variable from 150s to 160s systolic/90s to 110 diastolic. Patient with evidence of possible diastolic dysfunction with a preserved ejection fraction of 55 to 60%. Cardiology was consulted and Dr. Montague had instructed that patient be started on a scheduled Lopressor along with diltiazem drip as she has a lots of room with her blood pressure to uptitrate doses along with Lasix in between. She has also recommended that no advisable elective DC cardioversion mainly due to the fact that she is not properly anticoagulated and a transthoracic echocardiogram is not available to rule out definitively any thrombi or vegetations prior to elective DC cardioversion although under procedural sedation may worsen her condition. In addition patient received IV Levaquin/Solu-Medrol and is currently requiring oxygenation for presumed mid inflammatory versus infectious pneumonitis. Patient may need a bronchoscopy as sputum Gram stain and culture was ordered and no discernible underlying infection has been identified either with blood cultures or lactic acid trending. - Goals of Care Goals of care determinations: Goals of CARE determinations have been made with instructions provided via POLST - Plan Plan: Patient had 2 updates to her POLST and her last updated POLST signifies that she does not want to be intubated nor resuscitated due to underlying rib fractures that would obviously cause trauma and pain. She also previously stated that she would like to have shock in an event of acute cardiac arrest however, In the case of a stable arrhythmia she has deferred DC cardioversion in this case when she was in SVT. We have gone over her list of medical conditions as well as her goals of care in line with her values and believes with support from her spouse. In addition, she would like transfusions, IV antibiotics, IV fluids, IV cardiac meds, with no decision on dialysis for now as she is undecided. In addition she has deferred off nutritional or artificial nutrition management in case of a vegetative state. Patient has full understanding of her trajectory of illness and her current prognosis. - Code Status Code Status: Do Not Attempt Resuscitation - Time Spent on Advance Care Planning Time spent on advance care plannin
[2018-11-23] MEDS: VENLAFAXINE 37.5 MG TABLET PO SCH (10:58)
[2018-11-23] MEDS: ALLOPURINOL 100 MG TABLET PO SCH (10:59)
--- NOTE | 2018-11-23 11:19 | MISCELLANEOUS PROVIDER NOTE ---
Miscellaneous Provider Note - - Note: HPI Comment/Other: This is a 83-year-old female with a complicated past medical history significant for stage IV metastatic breast carcinoma, Initially diagnosed in 2009 status post chemotherapy with active treatment with letrozole and immunotherapy (Ibrance) as of 11/04/18. Please refer to Dr. Joseph as note dated 10/07/2018 for more detailed summary and course of patient's breast carcinoma. 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 She also has a history of Immuno/chemo induced anemia, pancytopenia. She just finished a 10-day course of doxycycline for a suspected left toe cellulitis and was also complaining of right hip pain when she visited her primary course instructor oncologist Dr. Heidi Joseph with last seen on 11/04/2018. She was sent from the [facility] clinic due to abnormalities in her labs with some weakness, shortness of breath and a suspected toe infection. She is also complaining of pleuritic type chest pain. Patient presented in RVR A. fib in the 130s and was given 1 dose of IV Lopressor in the ED, she was 84% O2 saturation on room air for which she corrected with a 2 L nasal cannula to 96%. Patient became hypotensive after getting 1 dose of 5 mg IV Lopressor. Her heart rate did improve to the 110s to 115's. On exam patient was with increased work of breath and ill-appearing noted to have RVR A. fib and with a creatinine of 2.1, BNP of 389, hemoglobin 11.4, chest x-ray showing small pleural effusions with cardiomegaly and right upper lobe opacity with lateral pleural thickening. Her troponin was 0.04 and a lactic acid was 1.6. Patient does have a history of chronic kidney disease for which her baseline ranges between 1.1-1.7. Her last echocardiogram was on 01/20 which shows mild LVH with an EF of 65%. Patient had a CT chest without contrast due to her creatinine ordered as well as a x-ray to her toe to rule out underlying osteomyelitis. Patient had a VQ scan which showed low probability despite elevated d-dimer. Serial BMPs on the rise, worsening bilateral pleural effusion with airspace opacity, patient started on Solu-Medrol and Levaquin, developed SVT from A. fib a flutter and was not rate controlled initially with conservative management (vagal maneuvers/carotid massage); adenosine 6 mg IV push x1, adenosine 12 mg IV push x2 subsequently converted to Cardizem drip for which she is a little better rate controlled in the 120s with now RVR A. fib/a flutter. Cardiology from [place] consulted. Not anticoagulated as patient with contraindications in the past. Subjective: Patient underwent protocol for ACLS PSVT which was somewhat symptomatic due to her palpitations however hemodynamically stable was feeling lots of anxiety. She has indicated that she did not want to undergo elective DC cardioversion and this was deferred. There is no mention of chest pain, fevers, nausea, vomiting, GI or symptoms. Objective: Vital signs hemodynamically stable, Afebrile with variable heart rate in the 120s in RVR A. fib, blood pressure 150s to 160s systolic, tachypneic at 22 to 25 breaths/min, 93 to 95% O2 saturation on 3 to 4 L nasal cannula. General Appearance: positive: Alert, Chronically ill-appearing. Morbidly obese. Patient with mild acute respiratory distress, worsened wth movements Eyes Bilateral: positive: Normal inspection, PERRL, EOMI, Conjunctivae nml, No scleral icterus ENT: positive: ENT inspection nml, Pharynx nml, Moist mucous membranes. negative: Oral lesions Neck: positive: Nml inspection, Thyroid nml, No JVD, Trachea midline. negative: Thyromegaly, Carotid bruit, Tracheal deviation Respiratory: positive: Chest non-tender, No respiratory distress, Fine scattered rales, Rhonchi (Decreased breath sounds with prolonged expiratory rhonchi), Other (No retractions or increased work of breath.). No discernible wheezing noted. Cardiovascular: positive: No murmur, No gallop, Irregularly irregular, Tachycardia. negative: JVD present, Gallop/S3, Friction rub Peripheral Pulses: positive: 1+ (Patient has Doppler pulses bilaterally) Abdomen: positive: Non-tender, No organomegaly, Nml bowel sounds, No distention. negative: Tenderness Skin: positive: Color nml, No rash, Dry, Cyanosis (Cyanotic digits with associated ulcerations to the toes), Pallor Extremities: Left medial first metatarsophalangeal joint callus with shallow ulcer with no necrotic borders. Right first metatarsal phalangeal joint with medial small black eschar. positive: Non-tender, Full ROM, Other (Patients with cyanotic digits Bilateral toes with ulcerations, does not appear erythematous, there is erythema around left toe laterally. No necrotic borders. No bulla.). negative: Pedal edema, Calf tenderness Neurologic/Psychiatric: positive: Oriented x3, CN's nml (2-12) Labs: Reviewed Imaging studies: Reviewed Assessment/plan: 1. Acute hypoxemic respiratory failure associated with Pneumonitis Chest x-ray has showed progression of airspace opacities and bilateral pleural effusions. Inflammatory versus infectious pneumonitis. Previously on Ibrance. Patient CT without contrast shows a 16 mm and unchanged small ill-defined nodule. Significant interval improvement in previous seen cavitary opacity in the right apex with interval decrease in size of cavitation. Ill-defined parenchyma/air space opacities in the right upper lobe are slightly increased since prior. Increased groundglass opacities in the left lower lobe not likely to be neoplastic. Increased small bilateral pleural effusions. There is a subacute and chronic bilateral rib fractures. These may be pathological. However letrozole induced fractures cannot be excluded. Ibrance may cause interstitial lung disease with pneumonitis-noninfectious. Patient may need bronchoscopy. We will need to rate and rhythm control her first in order to perform any further procedures. Patient lacks fever, Elevated white count now attributable to steroids likely, has mild pleuritic chest pain. Continue with renal adjusted IV Levaquin, Solu- Medrol, glycemic control, Xopenex, Pulmicort, Perforomist, Singulair, flutter valve. D-dimer markedly elevated. VQ scan shows no ventilation/perfusion mismatches to indicate pulmonary emboli. Low probability for acute pulmonary embolism. Moderate central airway radiotracer deposition consistent with obstructive pulmonary physiology. Sputum Gram stain and culture with induced sputum with flutter valve. Guaifenesin/codeine/Tessalon antitussive. 2. Transient episode of PSVT status post conversion back to RVR A. fib/a flutter On 11/23 in a.m. patient was in A. fib a flutter and subsequently converted to sinus tachycardia and then PSVT for which unsuccessful pharmacologic cardioversion was achieved via vagal maneuver/carotid massage or adenosine 6-12 mg dose regimen. Cardiology in [place] [place] was consulted and recommendations were to Continue with diltiazem drip and add Lopressor scheduled and defer off of elective DC cardioversion as patient would likely need a ADAM and anticoagulation prior and after procedure. At this point patient likely would not tolerate procedural sedation under her current condition of her pneumonitis. She is also not a good candidate for anticoagulation from prior pulmonary hemorrhage. Continue with digoxin. Previous work-up includes trop that was neg, V/Q scan low prob for PE,TSH/magnesium levels normal. Echocardiogram report shows 50 to 55% ejection fraction with no motion wall abnormality. No structural heart disease. CHadsvasc is 5 points which translates to 7.2% stroke risk per year. Would not be an ideal candidate for it for anticoagulation. HASBLED is 3 points which places her at a high risk of major bleeding. Continue with medical management. 3. Bilateral pleural effusion secondary to #2 and contributing to #1; worsening Serial BNPs initially improving, however held lasix due to HAILEE and now at 343. Will restart Lasix at 20 mg twice daily in a.m. May be malignant as well. VQ scan was unremarkable. Moderate central airway radiotracer deposition consistent with obstructive pulmonary physiology. We will continue with IV Levaquin, Solu-Medrol as well as pulmonary toileting. 4. HAILEE on Chronic kidney disease stage III Likely secondary to diuretic use. Lasix to hold for now. Slight bump in her creatinine but within her baseline. Will restart Lasix 20 mg IV twice daily due to patient's worsening effusion seen on 2nd chest x-ray. Patient has underlying chronic kidney disease as evidenced from creatinine being at 1.1-1.7 in [facility]. Avoid nephrotoxic agents. Correct underlying electrolyte disturbances. Uric acid was 7.6 and with hyperuricemia but will continue with allopurinol. 5. Chemo/immuno induced side effects Patient presented to Dr. Joseph's office on 11/04/18 With complaints of left toe pain back then and possibly related to side effects with arthralgias and complaint of right hip pain. Continue to control pain with narcotics plus or minus Lyrica or Flexeril. Currently on letrozole as patient was instructed to hold off on cycle #2 of Ibrance since this was likely causing myelosuppression with serious infection such as a left toe cellulitis that patient was receiving treatment for. Patient may of had a noninfectious pneumonitis/interstitial lung disease from chemo-immuno agents. 6. Multifactorial anemia with macrocytosis No precipitous drops in H&H trending. Iron deficiency anemia seen on labs. Patient also has chemo induced anemia. Has had a history of pancytopenia in the past however no evidence of neutropenia or fever. MCV elevated, no evidence of GI bleeding, transfuse under a liberal threshold of less than 8 g/dL due to underlying coronary disease with a history of CAD/CABG. 7. 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 Patient's x-ray to the left great toe shows soft tissue swelling with some small superficial ulcer medial to the MTP joint. No evidence of osteomyelitis. Osteoarthritis present. Patient is status post a 10-day course of doxycycline. Patient currently not on any IV antibiotics. Uric acid was marginally elevated, does have chronic joint changes with some erythema but not cellulitic appearing. Wound care consultation, recommendations or to follow-up as outpatient as needed with no current interventions for now. 8. Bilateral Lower extremity cyanotic digits; resolved Patient initially presented with cyanotic digits and this has resolved now. Does not appear to be a Charcot joint nor gouty arthropathy as it lacks warmth, and shiny appearance with marginally elevated uric acid. ESR was marginally elevated to 57. JUDY showed mild disease to the right versus normal JUDY of the left. Bilateral arterial ultrasound shows no significant HD stenosis, however due to patient intolerance the remainder of right leg arterial system could not be evaluated. 9. History of PE/DVT with history of IVC filter placement and prior anticoagulation Currently contraindicated to receive anticoagulation with a NOAC or Coumadin. Patient will be rhythm controlled and possibly rate controlled with IV diltiazem and is at risk for thromboembolic event. Patient does however meet criteria for DVT prophylaxis as she has high risk for DVT due to active cancer. 10. Stage IV breast cancer with mets to lung on active chemo/immunotherapy Patient was initially diagnosed in 2008 and was initially treated with anastrozole. At that time of progression patient had developed hemoptysis which required hospitalization on 05/26 for pulmonary hemorrhaging which required being off of anticoagulation despite her history of A. fib with prior history of DVT/PE. She was then treated with paclitaxel starting on 06/05/2018 for 6 cycles followed by radiation treatment to the lung lesion. Patient is currently now on letrozole and Ibrance as of 09/11/2018. She tolerated the first cycle well. Patient has adequate counts and being followed up by primary hematology/oncology and was instructed to proceed with cycle 2 however to hold Ibrance if patient has active infection to the left toe. However I do not see that patient has infection of left toe. Patient has a malfunctioned left port as indicated by [facility] on 08/25. Advance care planning has been revised. 11. Hyperglycemia with Insulin requiring type 2 diabetes mellitus Exacerbated by steroid use now. Continue with insulin sliding scale correctional dose moderate, along with basal coverage. Hemoglobin A1c to follow. Carb controlled diet. May need to adjust basal and bolus coverage as patient will be on IV solumedrol. 12. Malignant Hypertension At of evidence of diastolic heart failure and likely need for afterload reduction indicated, will place on metoprolol tartrate 25 mg p.o. every 6 hours along with her diltiazem drip as this may be decreasing preload and afterload to improve patient's overall respiratory function as it pertains her bilateral pleural effusions per. Patient was on Toprol XL for her chronic atrial fibrillation, and lasix. 13. Hyperlipidemia Would continue with statin 14. Coronary disease status post CABG Continue with aspirin, pravastatin, on dilt 60mg po qid for R&R control. Patient's first set of troponin was 0.04, second <0.04, echocardiogram shows ejection fraction 50 to 55% with no motion wall abnormalities. Secondary prevention and control modifiable risk factors. Nitroglycerin as needed for chest pain however patient has labile blood pressures and will watch closely. 15. Chronic pain Patient does have a history of chronic opioid use and will continue for pain relief. Patient has chronic back pain as well as spinal stenosis. Arthralgias to the right hip and also left toe pain. Lyrica may help with this type of neuropathic type pain. Patient has bilateral rib fractures seen on CT chest which patient mentions traumatic falls to her flanks. Left more than the right will apply Lidoderm patch. 16. Deconditioned status secondary to above PT following closely.We will give oxycodone prior to PT to ambulate and improve pain tolerance. Will need Home Health Services on discharge. 17. Moderate to severe anxiety Patient is on Effexor twice daily and this will be titrated off over a span of 2 weeks as this may be cause side effect such as hypertension, eosinophilic pneumonia and arrhythmias. We will substitute this for Xanax and patient's regimen as this may help for patient's chronic atrial fibrillation that is in RVR at this point 18. Advance care education counseling, Planning Patient's goals of care, medical conditions, and trajectory of illness were discussed and patient. Patient's POLST has been updated and now is a DNR/DNI with undecided on dialysis does want blood products, IV antibiotic, AED and does not want G-tube or artificial nutrition. Has deferred off the left elective DC cardioversion as well. Palliative care service indicated but currently not available. Patient currently is not interested in hospice but is an ideal candidate. DVT/GI prophylaxis initiated; Continue with Lovenox due to risk of DVT due to cancer state present. Continue with famotidine. CODE STATUS: Updated to DNR/DNI. Selective treatment was selected on POLST. Total critical care time: 30 minutes
[2018-11-23] MEDS ORDERED: ALPRAZolam 0.25 MG TABLET PO PRN (11:45)
[2018-11-23] MEDS: METOPROLOL TARTRATE 25 MG TABLET PO SCH ×2 (12:44→17:45)
[2018-11-23] MEDS: MONTELUKAST 10 MG TABLET PO SCH (21:16)
[2018-11-23] MEDS: SODIUM CHLORIDE FLUSH 0.9% 10 ML SYRINGE IVP PRN (22:54)
[2018-11-24] MEDS: METOPROLOL TARTRATE 25 MG TABLET PO SCH ×2 (00:03→06:01)
[2018-11-24] MEDS: oxyCODONE 5 MG TABLET PO PRN ×2 (00:03→05:02)
[2018-11-24] MEDS: MORPHINE 2 MG/ML CARPUJECT IVP PRN (04:53)
[2018-11-24] MEDS: SODIUM CHLORIDE FLUSH 0.9% 10 ML SYRINGE IVP PRN ×4 (04:54→21:38)
[2018-11-24 05:34] LABS: BASOPHILS % (AUTO) 0.3 %; HGB - HEMOGLOBIN 11.6 g/dL (12.0-16.0); LYMPHOCYTES % (AUTO) 1.4 %; MEAN CORPUSCULAR HEMOGLOBIN 31.8 pg (27.0-31.0); MEAN CORPUSCULAR HGB CONC 31.5 g/dL (32.0-36.0); MEAN CORPUSCULAR VOLUME 100.8 fL (81.0-99.0); MEAN PLATELET VOLUME 9.4 fL (7.9-10.8); MONOCYTES % (AUTO) 5.6 %; NEUTROPHILS % (AUTO) 92.7 %; PLT - PLATELET COUNT 363 10^3/uL (130-450); RED BLOOD COUNT 3.65 10^6/uL (4.20-5.40); RED CELL DISTRIBUTION WIDTH 20.5 % (12.0-15.0); WHITE BLOOD COUNT 19.7 x10^3/uL (4.8-10.8)
[2018-11-24 05:40] LABS: BUN - BLOOD UREA NITROGEN 49 mg/dL (6-20); CALCIUM 10.1 mg/dL (8.5-10.3); CARBON DIOXIDE - CO2 27 mmol/L (21-32); CHLORIDE 104 mmol/L (101-111); CREATININE 1.1 mg/dL (0.4-1.0); GFR - MDRD 48 (>89); GLUCOSE 168 mg/dL (70-100); MAGNESIUM 2.2 mg/dL (1.7-2.8); PHOSPHORUS 3.8 mg/dL (2.5-4.6); SODIUM 142 mmol/L (135-145)
[2018-11-24 05:45] LABS: DIGOXIN 1.9 ng/mL
[2018-11-24] MEDS: FUROSEMIDE 20 MG/2 ML VIAL IVP SCH ×2 (06:01→14:00)
[2018-11-24] MEDS: methylPREDNISolone SUCCINATE 40 MG/ML VIAL IVP SCH ×3 (06:01→21:38)
[2018-11-24 06:08] LABS: ABNORMAL LYMPHS % (MANUAL) 0 %; BAND NEUTROPHILS % (MANUAL) 0 %
[2018-11-24 06:12] LABS: LYMPHOCYTES # (MANUAL) 0.6 10^3/uL (1.5-3.5); LYMPHOCYTES % (MANUAL) 3 %; MONOCYTES # (MANUAL) 1.2 10^3/uL (0.0-1.0); NEUTROPHILS # (MANUAL) 17.7 10^3/uL (1.5-6.6); NEUTROPHILS % (MANUAL) 90 %; PLATELET ESTIMATE, MANUAL NORMAL (130-450,000) (NORMAL); PLATELET MORPHOLOGY NORMAL APPEARANCE (NORMAL); PROMYELOCYTES % (MANUAL) 1 %
[2018-11-24 06:13] LABS: DIFFERENTIAL COMMENT MANUAL DIFFERENTIAL
[2018-11-24] MEDS: SODIUM CHLORIDE FLUSH 0.9% 10 ML SYRINGE IVP SCH ×2 (08:49→17:50)
[2018-11-24] MEDS: ENOXAPARIN 30 MG/0.3 ML SYRINGE SUBQ SCH (09:14)
[2018-11-24] MEDS: MIN OIL/DIMETHICON/COCONUT OIL 92 GM TUBE TOP PRN ×2 (09:29→13:19)
[2018-11-24] MEDS: FAMOTIDINE 20 MG TABLET PO SCH (09:30)
[2018-11-24] MEDS: ALLOPURINOL 100 MG TABLET PO SCH (09:30)
[2018-11-24] MEDS: ASPIRIN EC 81 MG TABLET PO SCH (09:30)
[2018-11-24] MEDS: LACTOBACILLUS RHAMNOSUS GG CAPSULE PO SCH (09:31)
[2018-11-24] MEDS: FERROUS SULFATE 325 MG TABLET PO SCH ×2 (09:31→17:49)
[2018-11-24] MEDS: INSULIN ASPART 300 UNIT/3 ML PEN SUBQ SCH ×6 (09:47→20:32)
[2018-11-24] MEDS: INSULIN GLARGINE 300 UNIT/3 ML PEN SUBQ SCH ×2 (09:47→20:31)
[2018-11-24] MEDS: FORMOTEROL FUMARATE NEB 20 MCG/2 ML INH SCH ×2 (10:00→19:38)
[2018-11-24] MEDS: BUDESONIDE 0.5 MG/2 ML NEB INH SCH ×2 (10:00→19:38)
[2018-11-24] MEDS ORDERED: METOPROLOL SUCCINATE 25 MG TABLET PO SCH (10:00)
[2018-11-24] MEDS: LEVALBUTEROL 1.25 MG/3 ML NEB INH PRN ×2 (10:00→22:41)
[2018-11-24] MEDS: LIDOCAINE PATCH 5% TOP SCH (10:16)
[2018-11-24] MEDS: POLYETHYLENE GLYCOL 3350 17 GM PACKET PO SCH (10:17)
--- NOTE | 2018-11-24 10:22 | XRAY Report ---
Reason: Worsening pneumonitis Procedure Date: 11/24/2018 Accession Number: [id number] / [id number] Procedure: XR - Chest 1 View X-Ray CPT Code: 13205 FULL RESULT: EXAM: CHEST RADIOGRAPHY EXAM DATE: 11/24/2018 09:18 AM. CLINICAL HISTORY: Worsening pneumonitis. COMPARISON: CHEST 1 VIEW 11/21/2018 7:29 AM. TECHNIQUE: 1 view. FINDINGS: Lungs/Pleura: Increasing confluence of bilateral airspace opacities, likely component of left pleural effusion as well as trace right pleural effusion. No pneumothorax. Mediastinum: Redemonstration of cardiomegaly status post CABG with unchanged position of left subclavian approach central venous port and aortic calcifications. Other: None. IMPRESSION: Worsening bilateral airspace opacities with persistent pleural effusions, left greater than right, in the setting of cardiomegaly. RADIA
[2018-11-24] MEDS: VENLAFAXINE 37.5 MG TABLET PO SCH (10:53)
[2018-11-24] MEDS: CALCIUM CARB (OYSTER SHELL) 500 MG TABLET PO SCH (11:20)
[2018-11-24] MEDS: diltiaZEM INJ 125 MG in DEXTROSE 5% 100 ML IV SCH (13:19)
--- NOTE | 2018-11-24 13:54 | PROVIDER PROGRESS NOTE ---
Assessment/Plan - Problem List (1) Delirium Assessment/Plan: RN reports she is sleeping until after lunch. The reported to me that she was very confused this morning, talking gibberish and disoriented to person and time. By 4 PM, she was able to get out of bed to chair, is oriented to person place and time. I suspect this change in mental status is from receiving narcotic pain medications overnight: The RN stated that she was fidgety and complaining of pain all over and that is why her pain meds were given overnight. There did not appear to be any focal neurologic signs to consider stroke and she is clearing her sensorium as the day goes on. I will decrease the narcotic doses (Morphine iv and Oxycodone po, which she does not take at home) so as to decrease her somnolence and then confusion as she awakens. I discussed this with her , at bedside, who agreed. (2) Pneumonitis Assessment/Plan: She is still short of breath with minimal exertion (out of bed to chair with the help of PT, using a walker). She remains on supplemental oxygen. Her chest x-ray today shows worsening left pleural effusion and opacities bilaterally. Will continue gentle diuresis and IV empiric antibiotics for pneumonia and Solumedrol for pneumonitis. (3) Pleural effusion Assessment/Plan: I asked the patient why she stopped her Lasix 3 days before this admission and she stated because she did not like walking to the bathroom as often as it makes her. Her overall fluid balance since admission is neutral, not negative fluid balance, despite IV diuretics. BNP increased from 314 to 717 today. Chest x-ray showed worsening opacities/pleural effusion. We will add 2 g sodium restriction and 2000 cc/day total fluid restriction to her diet. Continue IV diuretics, follow daily I's and O's. Daily weight was not ordered. Monitor daily BMP and magnesium labs. (4) Acute hypoxemic respiratory failure Assessment/Plan: Patient continues to require supplemental oxygen. Echo does not show evidence of cor pulmonale. Hopefully with improvement of her pleural effusion and pneumonitis, the oxygen can be weaned down. Continue nebulizers and IV steroids Today was first day that she walked, using a walker. She is deconditioned and she does agree to be discharged to SNF for PT rehab when medically ready. (5) Atrial fibrillation with rapid ventricular response Assessment/Plan: Jennifer dunham was controlled with IV Cardizem yesterday, it was weaned off overnight, her dig level yesterday was 1.9. Continue with p.o. meds for rate control: will increase oral metoprolol dose, since BP will tolerate it. She cannot be on an anticoagulant because of her history of subdural bleed. (6) COPD exacerbation Assessment/Plan: Continue with IV steroids, supplemental oxygen, nebs as needed and Singulair. 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 Patient was seen by palliative care provider, YAMILA Crawford. Who was also worried about her memory deficit today. (8) Uncontrolled insulin dependent diabetes mellitus Assessment/Plan: She remains on a carb controlled diet and scheduled insulin, sliding scale insulin. We will add nutritional dose insulin as well for glu levels in the 200's. They are very likely elevated due to the steroid use. (9) Hypertension Assessment/Plan: Continue with current meds We will add 2 g sodium restriction to her diet. 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 She has however had prior hemoptysis,Pulmonary hemorrhage in May 2018 and history of subdural hematoma. She is on oral iron replacement. Will follow CBC daily. (11) History of coronary artery disease Assessment/Plan: She has a Hx of CABG. Her LVEF by Echo done this admission was low normal, with EF of 50% Continue with beta-lance, daily baby aspirin. We will add cardiac restriction to her diet. (12) Metastatic breast cancer Assessment/Plan: She was getting chemotherapy very recently. The trajectory of her illness and plan for palliative care is to be addressed st arting today, by YAMILA Crawford. (13) History of pulmonary embolism Assessment/Plan: Patient had a CTA this admission, because of high d-dimer level. There was no evidence of pulmonary embolism. Patient cannot be on anticoagulation because of prior hemorrhage (subdural hematoma). She has an IVC filter in place. - Current Meds Current Meds: Current Medications Generic Name Dose Route Start Last Admin Trade Name Freq PRN Reason Stop Dose Admin Alendronate Sodium 70 mg 11/22/18 06:30 11/23/18 08:02 Fosamax PO 70 mg Q7D [facility] Administration Allopurinol 100 mg 11/23/18 09:00 11/24/18 09:30 Zyloprim PO 100 mg DAILY [facility] Administration Alprazolam 0.5 mg 11/23/18 11:45 11/24/18 00:03 Xanax PO 0.5 mg TID PRN Administration Anxiety Aspirin 81 mg 11/19/18 09:00 11/24/18 09:30 Ecotrin PO 81 mg DAILY [facility] Administration Budesonide 0.5 mg 11/19/18 19:00 11/24/18 10:00 Pulmicort INH 0.5 mg RTBID [facility] Administration Calcium Carbonate/Glycine 500 mg 11/24/18 11:00 11/24/18 11:20 Oysco-500 PO 500 mg DAILY [facility] Administration Enoxaparin Sodium 30 mg 11/19/18 09:00 11/24/18 09:14 Lovenox SUBQ 30 mg DAILY [facility] Administration Famotidine 20 mg 11/18/18 21:00 11/24/18 09:30 Pepcid PO 20 mg DAILY [facility] Administration Ferrous Sulfate 325 mg 11/19/18 17:00 11/24/18 09:31 Feosol PO 325 mg BIDWM [facility] Administration Formoterol Fumarate 20 mcg 11/22/18 09:00 11/24/18 10:00 Perforomist INH 20 mcg RTBID [facility] Administration Furosemide 20 mg 11/24/18 06:00 11/24/18 06:01 Lasix Inj 20mg Vial IVP 20 mg BIDDIURETIC [facility] Administration Levofloxacin 250 mg in 50 mls @ 50 mls/hr 11/22/18 14:00 11/23/18 15:30 Levaquin 250 Mg/50 Ml IV Infused Q24H [facility] Infusion Diltiazem HCl 125 mg/ Dextrose 125 mls @ 5 mls/hr 11/23/18 10:00 11/24/18 13:19 IV 11/24/18 15:00 Not Given .Q25H [facility] Protocol 5 MG/HR Insulin Aspart 3 - 11 unit 11/21/18 08:00 11/24/18 12:30 Novolog SUBQ 3 unit 0800,1200,1700,2100 [facility] Administration Protocol Insulin Aspart 4 unit 11/24/18 12:00 11/24/18 12:30 Novolog SUBQ Not Given [facility] Protocol Insulin Glargine 18 unit 11/23/18 09:00 11/24/18 09:47 Lantus Solostar SUBQ 18 unit BID [facility] Administration Lactobacillus Rhamnosus 1 cap 11/22/18 09:00 11/24/18 09:31 Culturelle PO 1 cap DAILY [facility] Administration Levalbuterol HCl 1.25 mg 11/18/18 16:58 11/24/18 10:00 Xopenex INH 1.25 mg Q4H PRN Administration Shortness of Air/Wheezing Lidocaine 1 patch 11/20/18 13:56 11/24/18 10:16 Lidoderm Patch TOP 1 patch DAILY [facility] Administration Methylprednisolone 40 mg 11/21/18 09:00 11/24/18 06:01 Solu-Medrol (40mg Vial) IVP 40 mg TID [facility] Administration Metoprolol Succinate 25 mg 11/24/18 10:00 11/24/18 10:53 Toprol Xl PO 25 mg DAILY [facility] Administration Mineral Oil 1 applic 11/21/18 03:58 11/24/18 13:19 Cavilon TOP 1 applic PRN PRN Administration Skin Care Montelukast Sodium 10 mg 11/20/18 21:00 11/23/18 21:16 Singulair PO 10 mg QPM [facility] Administration Morphine Sulfate 2 mg 11/23/18 07:12 11/24/18 04:53 Morphine (Carpuject) IVP 2 mg Q3H PRN Administration [employer] Oxycodone HCl 5 mg 11/19/18 04:30 11/24/18 05:02 Roxicodone PO 5 mg Q4HR PRN Administration PAIN (Letrozole [ 1 each 11/19/18 09:00 11/24/18 11:20 Letrozole] 2.5mg Tab PO 1 each ) DAILY [facility] Administration Polyethylene Glycol 17 gm 11/19/18 09:00 11/24/18 10:17 Miralax PO 17 gm DAILY [facility] Administration Sodium Chloride 10 ml 11/18/18 16:49 11/24/18 04:54 Normal Saline Flush 0.9% IVP 10 ml PRN PRN Administration NEEDED PER PROVIDER ORDERS Sodium Chloride 10 ml 11/18/18 17:00 11/24/18 08:49 Normal Saline Flush 0.9% IVP 10 ml 0100,0900,1700 [facility] Administration Venlafaxine HCl 37.5 mg 11/23/18 09:00 11/24/18 10:53 Effexor PO 11/28/18 09:00 37.5 mg DAILY [facility] Administration - Lab Result Fish Bone Diagrams: 11/24/18 05:02 11/24/18 05:02 - Additional Planning My Orders: My Active Orders 11/24/18 09:18 Miscellaenous Nursing Order [RC] ONCE 11/24/18 10:00 Metoprolol Succinate [Toprol Xl] 25 mg PO DAILY 11/24/18 11:00 Calcium Carb (Oyster Shell) [Oysco-500] 500 mg PO DAILY 11/24/18 12:00 Insulin Aspart [NovoLOG] 4 unit SUBQ TIDWM 11/24/18 12:07 Acetaminophen [Tylenol] 650 mg PO Q4HR PRN 11/24/18 21:00 Pravastatin [Pravachol] 40 mg PO QPM 11/25/18 05:00 BMP - BASIC METABOLIC PANEL [CHEM] DAILYLAB 11/25/18 09:00 Cholecalciferol [Vitamin D3] 800 unit PO DAILY Multivitamin [Theragran] 1 tab PO DAILY 11/26/18 05:00 BMP - BASIC METABOLIC PANEL [CHEM] DAILYLAB Subjective - Subjective Patient Reports: Feeling Better, Shortness of Breath Nursing Reports: Confused Objective Vital Signs: Vital Signs - 24 hr 11/23/18 11/23/18 11/23/18 14:00 14:30 15:00 Temperature Heart Rate Heart Rate [ Activity] Heart Rate [ 79 74 68 Monitoring electrodes] Respiratory 24 Rate Blood Pressure Blood Pressure [Activity] Blood Pressure 134/75 H [Left Ankle] Blood Pressure 138/58 H 147/74 H [Right Brachial artery] O2 Saturation 95 11/23/18 11/23/18 11/23/18 16:00 17:00 17:45 Temperature 36.8 C Heart Rate Heart Rate [ Activity] Heart Rate [ 74 76 Monitoring electrodes] Respiratory 22 Rate Blood Pressure 146/67 H Blood Pressure [Activity] Blood Pressure [Left Ankle] Blood Pressure 134/65 H 98/68 [Right Brachial artery] O2 Saturation 95 94 11/23/18 11/23/18 11/23/18 18:00 19:00 19:35 Temperature Heart Rate 81 Heart Rate [ Activity] Heart Rate [ 81 73 Monitoring electrodes] Respiratory 24 21 22 Rate Blood Pressure Blood Pressure [Activity] Blood Pressure [Left Ankle] Blood Pressure 146/67 H [Right Brachial artery] O2 Saturation 95 96 11/23/18 11/23/18 11/23/18 20:00 21:00 22:00 Temperature 36.7 C Heart Rate Heart Rate [ Activity] Heart Rate [ 85 90 77 Monitoring electrodes] Respiratory 25 H 27 H 24 Rate Blood Pressure Blood Pressure [Activity] Blood Pressure [Left Ankle] Blood Pressure 145/89 H 157/74 H 157/74 H [Right Brachial artery] O2 Saturation 95 92 92 11/23/18 11/24/18 11/24/18 23:00 00:00 00:03 Temperature 36.8 C Heart Rate Heart Rate [ Activity] Heart Rate [ 78 88 Monitoring electrodes] Respiratory 22 25 H Rate Blood Pressure 152/72 H Blood Pressure [Activity] Blood Pressure [Left Ankle] Blood Pressure 179/98 H 152/72 H [Right Brachial artery] O2 Saturation 94 91 L 11/24/18 11/24/18 11/24/18 01:00 02:00 03:00 Temperature Heart Rate Heart Rate [ Activity] Heart Rate [ 84 70 72 Monitoring electrodes] Respiratory 16 18 20 Rate Blood Pressure Blood Pressure [Activity] Blood Pressure [Left Ankle] Blood Pressure 152/74 H 155/80 H 151/100 H [Right Brachial artery] O2 Saturation 93 91 L 95 11/24/18 11/24/18 11/24/18 04:00 05:00 06:00 Temperature 36.7 C Heart Rate Heart Rate [ Activity] Heart Rate [ 74 81 82 Monitoring electrodes] Respiratory 18 25 H 23 Rate Blood Pressure Blood Pressure [Activity] Blood Pressure [Left Ankle] Blood Pressure 149/84 H 169/95 H 163/72 H [Right Brachial artery] O2 Saturation 95 94 93 11/24/18 11/24/18 11/24/18 06:01 06:53 08:00 Temperature Heart Rate Heart Rate [ Activity] Heart Rate [ 63 67 Monitoring electrodes] Respiratory 23 16 Rate Blood Pressure 169/95 H Blood Pressure [Activity] Blood Pressure [Left Ankle] Blood Pressure 143/91 H 134/71 H [Right Brachial artery] O2 Saturation 93 94 11/24/18 11/24/18 11/24/18 08:54 09:00 10:00 Temperature 36.4 C L Heart Rate Heart Rate [ Activity] Heart Rate [ 95 91 Monitoring electrodes] Respiratory 24 24 Rate Blood Pressure Blood Pressure [Activity] Blood Pressure [Left Ankle] Blood Pressure 192/88 H 168/89 H [Right Brachial artery] O2 Saturation 93 11/24/18 11/24/18 11/24/18 10:05 11:00 11:59 Temperature 36.5 C Heart Rate Heart Rate [ 88 Activity] Heart Rate [ 89 87 Monitoring electrodes] Respiratory 19 18 Rate Blood Pressure Blood Pressure 169/93 H [Activity] Blood Pressure [Left Ankle] Blood Pressure 164/85 H 164/77 H [Right Brachial artery] O2 Saturation 96 96 11/24/18 13:00 Temperature Heart Rate Heart Rate [ Activity] Heart Rate [ 77 Monitoring electrodes] Respiratory 18 Rate Blood Pressure Blood Pressure [Activity] Blood Pressure [Left Ankle] Blood Pressure [Right Brachial artery] O2 Saturation 96 Oxygen O2 Source [With Activity] Room air O2 Source [Without Activity] Room air O2 Source Nasal cannula Oxygen Flow Rate 2 I&O (Last 24 Hrs): Intake and Output Totals x24h 11/22/18 11/23/18 11/24/18 23:59 23:59 23:59 Intake Total 1330 1098.583 320 Output Total 506 244 0770 Balance 490 458.583 -855 General: Alert, Oriented x3 HEENT: Mucous membr. moist/pink Neck: Supple Neuro: Non Focal Cardiovascular: No murmurs Respiratory: Other (Diminished bilaterally, Prolonged expiratory phase but no wheezes audible) Abdomen: Soft Extremities: Other (Trace edema) - Results Results: Laboratory Results WBC 19.7 x10^3/uL (4.8-10.8) H 11/24/18 05:02 RBC 3.65 10^6/uL (4.20-5.40) L 11/24/18 05:02 Hgb 11.6 g/dL (12.0-16.0) L 11/24/18 05:02 Hct 36.8 % (37.0-47.0) L 11/24/18 05:02 MCV 100.8 fL (81.0-99.0) H 11/24/18 05:02 MCH 31.8 pg (27.0-31.0) H 11/24/18 05:02 MCHC 31.5 g/dL (32.0-36.0) L 11/24/18 05:02 RDW 20.5 % (12.0-15.0) H 11/24/18 05:02 Plt Count 363 10^3/uL (130-450) 11/24/18 05:02 MPV 9.4 fL (7.9-10.8) 11/24/18 05:02 Neut # (Auto) Not Reportable 11/24/18 05:02 Lymph # (Auto) Not Reportable 11/24/18 05:02 [place] # (Auto) Not Reportable 11/24/18 05:02 Eos # (Auto) Not Reportable 11/24/18 05:02 Baso # (Auto) Not Reportable 11/24/18 05:02 Absolute Nucleated RBC Not Reportable 11/24/18 05:02 Total Counted 100 11/24/18 05:02 Band Neuts % (Manual) 0 % (0-10) 11/24/18 05:02 Abnorm Lymph % (Manual) 0 % 11/24/18 05:02 Promyelocytes % 1 % (-0) H 11/24/18 05:02 Nucleated RBC % Not Reportable 11/24/18 05:02 Neutrophils # (Manual) 17.7 10^3/uL (1.5-6.6) H 11/24/18 05:02 Lymphocytes # (Manual) 0.6 10^3/uL (1.5-3.5) L 11/24/18 05:02 Monocytes # (Manual) 1.2 10^3/uL (0.0-1.0) H 11/24/18 05:02 Eosinophils # (Manual) 0.0 10^3/uL (0-0.7) 11/24/18 05:02 Basophils # (Manual) 0.0 10^3/uL (0-0.1) 11/24/18 05:02 Differential Comment MANUAL DIFFERENTIAL 11/24/18 05:02 Manual Slide Review Indicated 11/21/18 04:55 WBC Morphology NORMAL APPEARANCE (NORMAL) 11/24/18 05:02 Platelet Estimate NORMAL (130-450,000) (NORMAL) 11/24/18 05:02 Platelet Morphology NORMAL APPEARANCE (NORMAL) 11/24/18 05:02 RBC Morph Micro Appear 1+ ANISOCYTOSIS (NORMAL) 1+ HYPOCHROMASIA (NORMAL) 1+ POLYCHROMASIA (NORMAL) 1+ MACROCYTOSIS (NORMAL) 11/18/18 15:47 RBC Morph Micro Appear 1+ ANISOCYTOSIS (NORMAL) 1+ MACROCYTOSIS (NORMAL) 1+ HYPOCHROMASIA (NORMAL) 1+ POLYCHROMASIA (NORMAL) 1+ OVALOCYTES (NORMAL) 11/20/18 04:50 RBC Morph Micro Appear 1+ ANISOCYTOSIS (NORMAL) 1+ MACROCYTOSIS (NORMAL) 1+ HYPOCHROMASIA (NORMAL) 1+ POLYCHROMASIA (NORMAL) 1+ OVALOCYTES (NORMAL) 11/20/18 04:50 RBC Morph Micro Appear 1+ ANISOCYTOSIS (NORMAL) 1+ MACROCYTOSIS (NORMAL) 1+ HYPOCHROMASIA (NORMAL) 1+ POLYCHROMASIA (NORMAL) 1+ OVALOCYTES (NORMAL) 11/20/18 04:50 RBC Morph Micro Appear 1+ ANISOCYTOSIS (NORMAL) 1+ MACROCYTOSIS (NORMAL) 1+ HYPOCHROMASIA (NORMAL) 1+ POLYCHROMASIA (NORMAL) 1+ OVALOCYTES (NORMAL) 11/20/18 04:50 RBC Morph Micro Appear 1+ ANISOCYTOSIS (NORMAL) 1+ MACROCYTOSIS (NORMAL) 1+ HYPOCHROMASIA (NORMAL) 1+ POLYCHROMASIA (NORMAL) 1+ OVALOCYTES (NORMAL) 11/20/18 04:50 RBC Morph Micro Appear 1+ ANISOCYTOSIS (NORMAL) 1+ MACROCYTOSIS (NORMAL) 1+ HYPOCHROMASIA (NORMAL) 1+ OVALOCYTES (NORMAL) 11/21/18 04:55 RBC Morph Micro Appear 1+ ANISOCYTOSIS (NORMAL) 1+ MACROCYTOSIS (NORMAL) 1+ HYPOCHROMASIA (NORMAL) 1+ OVALOCYTES (NORMAL) 11/21/18 04:55 RBC Morph Micro Appear 1+ ANISOCYTOSIS (NORMAL) 1+ MACROCYTOSIS (NORMAL) 1+ HYPOCHROMASIA (NORMAL) 1+ OVALOCYTES (NORMAL) 11/21/18 04:55 RBC Morph Micro Appear 1+ ANISOCYTOSIS (NORMAL) 1+ MACROCYTOSIS (NORMAL) 1+ HYPOCHROMASIA (NORMAL) 1+ OVALOCYTES (NORMAL) 11/21/18 04:55 RBC Morph Micro Appear 1+ ANISOCYTOSIS (NORMAL) 1+ HYPOCHROMASIA (NORMAL) 11/24/18 05:02 RBC Morph Micro Appear 1+ ANISOCYTOSIS (NORMAL) 1+ HYPOCHROMASIA (NORMAL) 11/24/18 05:02 ESR 57 mm/Hr (0-30) H 11/18/18 20:00 D-Dimer > 1050.0 ng/mL (200.0-255.0) H 11/18/18 16:57 VBG pH 7.456 (7.31-7.41) H 11/22/18 04:15 Ionized Calcium 1.24 mmol/L (1.15-1.33) 11/22/18 04:15 Sodium 142 mmol/L (135-145) 11/24/18 05:02 Potassium 4.4 mmol/L (3.5-5.0) 11/24/18 05:02 Chloride 104 mmol/L (101-111) 11/24/18 05:02 Carbon Dioxide 27 mmol/L (21-32) 11/24/18 05:02 Anion Gap 11.0 (6-13) 11/24/18 05:02 BUN 49 mg/dL (6-20) H 11/24/18 05:02 Creatinine 1.1 mg/dL (0.4-1.0) H 11/24/18 05:02 Estimated GFR (MDRD) 48 (>89) L 11/24/18 05:02 Glucose 168 mg/dL (70-100) H 11/24/18 05:02 POC Whole Bld Glucose 157 mg/dL (70 - 100) H 11/23/18 21:04 Lactic Acid 1.8 mmol/L (0.5-2.2) 11/21/18 09:11 Uric Acid 7.6 mg/dL (2.6-7.2) H 11/18/18 16:57 Calcium 10.1 mg/dL (8.5-10.3) 11/24/18 05:02 Ionized Calcium NO 11/24/18 05:02 Phosphorus 3.8 mg/dL (2.5-4.6) 11/24/18 05:02 Magnesium 2.2 mg/dL (1.7-2.8) 11/24/18 05:02 Iron 13 ug/dL (28-170) L 11/18/18 20:00 TIBC 217 ug/dL (250-450) L 11/18/18 20:00 % Saturation 6 % (20-50) L 11/18/18 20:00 Transferrin 155 mg/dL (192-382) L 11/18/18 20:00 Total Bilirubin 0.7 mg/dL (0.2-1.0) 11/22/18 04:15 AST 26 IU/L (10-42) 11/22/18 04:15 ALT 20 IU/L (10-60) 11/22/18 04:15 Alkaline Phosphatase 74 IU/L (42-121) 11/22/18 04:15 Troponin I < 0.04 ng/mL (<0.49) 11/21/18 09:11 B-Natriuretic Peptide 717 pg/mL (5-100) H 11/24/18 05:02 Total Protein 6.8 g/dL (6.7-8.2) 11/22/18 04:15 Albumin 2.8 g/dL (3.2-5.5) L 11/22/18 04:15 Globulin 4.0 g/dL (2.1-4.2) 11/22/18 04:15 Albumin/Globulin Ratio 0.7 (1.0-2.2) L 11/22/18 04:15 Lipase 23 U/L (22-51) 11/18/18 15:47 Vitamin B12 896 pg/mL (180-914) 11/18/18 20:00 Folate 33.00 ng/mL (5.90 - >24.8) 11/18/18 20:00 TSH 3.31 uIU/mL (0.34-5.60) 11/18/18 16:57 Nasal Screen MRSA (PCR) POSITIVE (NEGATIVE) A* 11/18/18 17:45 Stl Occult Blood (IFOB) NEGATIVE (NEGATIVE) 11/22/18 03:00 Last Dose Date UNKNOWN 11/24/18 05:02 Last Dose Time UNKNOWN 11/24/18 05:02 Digoxin 1.9 ng/mL 11/24/18 05:02 Ref Lab Test Result REPORT 11/18/18 20:00 - Procedures Procedures: Procedures INSERT VAD RESERVOIR IN CHEST SUBCU/FASCIA, PERC (05/25/18) INSERTION OF INFUSION DEVICE INTO R ATRIUM, PERC APPROACH (05/25/18) TRANSFUSE NONAUT RED BLOOD CELLS IN PERIPH VEIN, PERC (10/18/16) Sepsis Event Note (H) - Sepsis Criteria Sepsis Criteria: Recorded Heart Rate greater than 90 bpm, Respiratory: Increasing oxygen requirements
--- NOTE | 2018-11-24 15:52 | CONSULTATION NOTE ---
Palliative Care Consultation - Referral Referring Provider: Dr. Kit Pérez Time of Visit: [id number] Referral setting: Hospitalized patient Referral Reason: Met Breast Ca with Lung Mets/AMS/Goals of Care - Information Sources Records reviewed: Previous records reviewed History/Review of Systems obtained from: Patient, Family (met with angie, daughter Jacqueline & son Reilly) Exam limitations: Clinical condition (patient very lethargic; unable to particip ate in conversation) - History of Present Illness Brief History of Present Illness: This is an 83-year-old woman with known stage IV breast cancer with mets to the lung. She is currently on treatment with letrozole and Ibrance which has been on hold. She had presented last week with toe infection, was on Doxycycline, was seen by oncology nurse practitioner and sent to the ED. She presented with acute hypoxemic respiratory failure associated with pneumonitis, RVR atrial fib, and bilateral pleural effusions. She also has been struggling with acute kidney injury superimposed on chronic kidney stage III. She has been doing fairly poorly, with increase difficulty with confusion, altered mental status, and severe fatigue. She had in acute episode yesterday morning of cardiac PSVT s/p post conversion back to RVR a. rib/flutter. She has had some improvement today, but escalating white count, more confusion and poor night with restlessness, "overall pain" and anxiety. As a result she received several sedating medications. She is currently sitting in the chair, but drifting off to sleep and unable to participate in a meaningful conversation. Did get her permission to meet with her family. Patient was originally diagnosed with her breast cancer in 2008, she received chemotherapy with multiple different chemotherapeutic agents. At the end of April she was seen in [facility] ED with hemoptysis and work-up showed metastatic disease of a large lung mass, she also has significant history of pulmonary embolism, DVT, when admitted for PE she was found to have subdural hematoma and discharged to [facility]. She has had multiple hospitalizations, including a CABG. She has been acutely ill, but always has managed "a pull- through". Medical/Surgical History - Past Medical History Cardiovascular: reports: Hypertension, High cholesterol, Deep vein thrombosis, Pulmonary embolism, Atrial fibrillation Respiratory: reports: Asthma, COPD, Pneumonia, Shortness of breath Neuro: None Endocrine/Autoimmune: reports: Type 2 diabetes GI: reports: None PULLBOAT ENGINEER: reports: Breast cancer : reports: None HEENT: reports: None Psych: reports: Depression, Anxiety (patient has long had difficulty with anxiety) Musculoskeletal: reports: Osteoarthritis, Gout, Fatigue, Chronic back pain Derm: reports: Other (multiple foot injuries) MRSA Hx?: Yes - Past Surgical History Ortho: reports: Knee replacement /PULLBOAT ENGINEER: reports: 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 Cardiovascular: reports: CABG, Coronary stent, Other (portacath plascemtn) - Substance History Use: Uses substance without health or social issues: NONE Social History - Living Situation Living arrangement: At home Living Situation: With spouse/s.o., With family Support System: Patient's does work 4 days a week, there is son lives with him and provide support for patient as far as assistance around the house, patient has been doing her own personal care. Family History - Family History Family History: Mother: , CAD, Father: , CVA/TIA, Diabetes, Type 2 Medications/Allergies - Medications Active Medication List: Active Medications Acetaminophen (Tylenol) 650 mg PO Q4HR PRN PRN Reason: Pain or Fever > 38C (100.4F) Alendronate Sodium (Fosamax) 70 mg PO Q7D [facility] Last Admin: 11/23/18 08:02 Dose: 70 mg Allopurinol (Zyloprim) 100 mg PO DAILY [facility] Last Admin: 11/24/18 09:30 Dose: 100 mg Alprazolam (Xanax) 0.5 mg PO TID PRN PRN Reason: Anxiety Last Admin: 11/24/18 00:03 Dose: 0.5 mg Aspirin (Ecotrin) 81 mg PO DAILY [facility] Last Admin: 11/24/18 09:30 Dose: 81 mg Benzonatate (Tessalon) 100 mg PO TID PRN PRN Reason: Cough Budesonide (Pulmicort) 0.5 mg INH RTBID [facility] Last Admin: 11/24/18 10:00 Dose: 0.5 mg Calcium Carbonate/Glycine (Oysco-500) 500 mg PO DAILY [facility] Last Admin: 11/24/18 11:20 Dose: 500 mg Cholecalciferol (Vitamin D3) 800 unit PO DAILY [facility] Enoxaparin Sodium (Lovenox) 30 mg SUBQ DAILY [facility] Last Admin: 11/24/18 09:14 Dose: 30 mg Famotidine (Pepcid) 20 mg PO DAILY [facility] Last Admin: 11/24/18 09:30 Dose: 20 mg Ferrous Sulfate (Feosol) 325 mg PO BIDWM [facility] Last Admin: 11/24/18 09:31 Dose: 325 mg Formoterol Fumarate (Perforomist) 20 mcg INH RTBID [facility] Last Admin: 11/24/18 10:00 Dose: 20 mcg Furosemide (Lasix Inj 20mg Vial) 20 mg IVP BIDDIURETIC [facility] Last Admin: 11/24/18 14:00 Dose: 20 mg Levofloxacin (Levaquin 250 Mg/50 Ml) 250 mg in 50 mls @ 50 mls/hr IV Q24H [facility] Last Infusion: 11/24/18 15:01 Dose: Infused Insulin Aspart (Novolog) 3 - 11 unit SUBQ 0800,1200,1700,2100 [facility]; Protocol Last Admin: 11/24/18 12:30 Dose: 3 unit Insulin Aspart (Novolog) 4 unit SUBQ TIDWM [facility]; Protocol Last Admin: 11/24/18 12:30 Dose: Not Given Insulin Glargine (Lantus Solostar) 18 unit SUBQ BID [facility] Last Admin: 11/24/18 09:47 Dose: 18 unit Lactobacillus Rhamnosus (Culturelle) 1 cap PO DAILY [facility] Last Admin: 11/24/18 09:31 Dose: 1 cap Levalbuterol HCl (Xopenex) 1.25 mg INH Q4H PRN PRN Reason: Shortness of Air/Wheezing Last Admin: 11/24/18 10:00 Dose: 1.25 mg Lidocaine (Lidoderm Patch) 1 patch TOP DAILY [facility] Last Admin: 11/24/18 10:16 Dose: 1 patch Methylprednisolone (Solu-Medrol (40mg Vial)) 40 mg IVP TID [facility] Last Admin: 11/24/18 13:58 Dose: 40 mg Metoprolol Succinate (Toprol Xl) 25 mg PO DAILY [facility] Last Admin: 11/24/18 10:53 Dose: 25 mg Mineral Oil (Cavilon) 1 applic TOP PRN PRN PRN Reason: Skin Care Last Admin: 11/24/18 13:19 Dose: 1 applic Montelukast Sodium (Singulair) 10 mg PO QPM [facility] Last Admin: 11/23/18 21:16 Dose: 10 mg Morphine Sulfate (Morphine (Carpuject)) 2 mg IVP Q3H PRN PRN Reason: PAIN OR AIR HUNGER Last Admin: 11/24/18 04:53 Dose: 2 mg Multivitamins (Theragran) 1 tab PO DAILY [facility] Oxycodone HCl (Roxicodone) 5 mg PO Q4HR PRN PRN Reason: PAIN Last Admin: 11/24/18 05:02 Dose: 5 mg (Letrozole [ Letrozole] 2.5mg Tab ) 1 each PO DAILY [facility] Last Admin: 11/24/18 11:20 Dose: 1 each Polyethylene Glycol (Miralax) 17 gm PO DAILY [facility] Last Admin: 11/24/18 10:17 Dose: 17 gm Pravastatin Sodium (Pravachol) 40 mg PO QPM [facility] Prochlorperazine Edisylate (Compazine Inj) 10 mg IVP Q6HR PRN PRN Reason: Nausea / Vomiting Sodium Chloride (Normal Saline Flush 0.9%) 10 ml IVP PRN PRN PRN Reason: NEEDED PER PROVIDER ORDERS Last Admin: 11/24/18 15:05 Dose: 10 ml Sodium Chloride (Normal Saline Flush 0.9%) 10 ml IVP 0100,0900,1700 [facility] Last Admin: 11/24/18 08:49 Dose: 10 ml Venlafaxine HCl (Effexor) 37.5 mg PO DAILY [facility] Stop: 11/28/18 09:00 Last Admin: 11/24/18 10:53 Dose: 37.5 mg Allopurinol [Zyloprim] 150 mg PO DAILY 11/16/12 Metoprolol Succinate [Toprol Xl] 25 mg PO DAILY 11/16/12 Potassium Chloride [K-Tab ER] 10 meq PO BID 11/16/12 Furosemide 40 mg PO DAILY 10/17/16 Insulin Glargine [Lantus] 15 units SUBQ QPM 10/17/16 Lisinopril [Zestril] 5 mg PO DAILY 10/17/16 Pantoprazole Sodium 40 mg PO QDAC 10/17/16 Pravastatin [Pravachol] 40 mg PO QPM 10/18/16 Alendronate [Fosamax] 70 mg PO Q7D 05/12/18 Aspirin [Adult Aspirin Regimen] 81 mg PO DAILY 05/18/18 Calcium Carbonate/Vitamin D3 [Calcium 600-Vit D3 800 Tablet] 2 tab PO DAILY 05/18/18 Multivitamin/Iron/Folic Acid [Centrum Adults Tablet] 1 tab PO DAILY 05/18/18 Acetaminophen [Tylenol Extra Strength] 1,000 mg PO DAILY 05/25/18 Sitagliptin Phosphate [Januvia] 50 mg PO DAILY 05/25/18 Letrozole 2.5 mg PO DAILY 09/02/18 Albuterol Sulfate [Proair Hfa Inhaler] 2 puffs INH Q6H PRN 11/18/18 Palbociclib [Ibrance] 100 mg PO DAILY 11/18/18 Venlafaxine HCl 37.5 mg PO BID 11/18/18 - Allergies Allergies/Adverse Reactions: Allergies Allergy/AdvReac Type Severity Reaction Status Date / Time Sulfa (Sulfonamide Allergy Severe Hives Verified 11/18/18 14:16 Antibiotics) adhesive Allergy Mild Rash Verified 11/18/18 14:16 Penicillins Allergy Hives Verified 11/18/18 15:00 Review of Systems - Constitutional Constitutional: reports: Fatigue, Poor appetite - Cardiovascular Cardiovascular: reports: Exertional dyspnea, Decr. exercise tolerance - Respiratory Respiratory: reports: Orthopnea, SOB at rest, SOB with exertion - Gastrointestinal Gastrointestinal: reports: Poor appetite - Genitourinary Genitourinary: reports: Incontinence (has wick catheter) - Musculoskeletal Musculoskeletal: reports: Muscle aches, Stiffness, Muscle weakness, Other (max assist transfer) - Integumentary Integumentary: reports: Dryness - Neurological Neurological: reports: General weakness, Memory problems (family reports some cognitive decline over last several months; most acutely over last couple of weeks) - Psychiatric Psychiatric: reports: Anxiety (residential;) - Endocrine Endocrine: reports: Diabetes type 2 - Hematologic/Lymphatic Hematologic/Lymphatic: reports: Anemia, Blood clots, Recurrent infections - All Other Systems All Other Systems: reports: Other (limited patient lethargic) Physical Exam - Vital Signs Vital Signs: Vital Signs x48h Temp Pulse Pulse Resp BP BP Pulse Ox 11/24/18 14:56 81 21 95 11/24/18 13:00 77 18 96 11/24/18 11:59 36.5 C 87 18 164/77 H 96 11/24/18 11:00 89 19 164/85 H 96 11/24/18 10:05 88 169/93 H 11/24/18 10:00 91 24 168/89 H 11/24/18 09:00 95 24 192/88 H 93 11/24/18 08:54 36.4 C L 11/24/18 08:00 67 16 134/71 H 94 - Physical Exam General Appearance: positive: Mild distress, Lethargic Eyes Bilateral: positive: Other (difficulty focusing;) ENT: positive: Dry mucous membranes, Other (beginning of white patches/ high risk for oral candidiasis) Neck: positive: Trachea midline Skin: positive: Pallor Neurologic/Psychiatric: positive: Disoriented to place, Disoriented to time, Weakness, Flat affect Palliative Care - POLST Patient has POLST: Yes POLST Status: DNR, Selective Treatment (completed with Dr. Pérez 11/22) Performance Status: Patient has been declining functionally, is been able to ambulate with walker short distances, does get around some in a transport wheelchair in the home setting. She has been much more weak over the last few weeks, getting more help, difficulty pulling on her pants, they are wondering if it is attributed to her rib fracture, she could not bend over. She has seen some cognitive decline, searching for words. She was sleeping more during the day. She has not been able to shower for a long while, her daughter helped her last month. She has been doing wipes for care. Patient were to need personal care or toileting assist, they would need to hire assistance. - Palliative Care Discussion: Patient unable to participate in family conference, she has had increased confusion and noted delirium. Met with , they have been greater than 60 years as well as [place] and [place]illy who lives with them for assistance. Reflected on patient's always not "let anything get her down", how it is assumed that things would get better, she has had multiple serious hospitalizations and has done well. She always expects to get better, though she is often not willing to participate in the process. She has been in the past been in rehab after CABG. She was on the [facility] conference, they did find that a positive experience. When asked with the understanding of her prognosis was with metastatic breast cancer and lung cancer, they really do not know. They have had some complexity as her oncologist is now retired, she has been recently treated with radiation therapy at [place]. Their understanding is there are more treatments available, we did discuss at length though that they were still palliative in nature. Metastatic breast cancer often does have a prolonged course, but she has multiple comorbidities that add to her risk for further decline. They do not believe in the context of who she is, she would be interested in focusing on comfort as a goal. Counseling provided regarding the goal of palliative care to provide support, assistance for long-term planning, as well as when the time comes transition to hospice when appropriate was present for conversation with Dr. Pérez and completion of the POLST. Feels like she was very accepting and trusting of him in the conversation. At this point in time unable to verify her current understanding or wishes. We did discuss in the context of serious illness, often hospitalizations lead to progressive decline. Has been reports he is reading hard choices for loving people, and is finding that quite helpful. Addressed concerns as able, unfortunately patient unable to participate in conversations, agreed would wait till patient clears. In follow-up with patient was still quite confused the end of day, she agreed to meet in the morning. Results - Lab Results Lab results reviewed: Yes Fish Bones: 11/24/18 05:02 11/24/18 05:02 Lab and Imaging Results: Lab Results x24hrs 11/24/18 11/24/18 11/24/18 Range/Units 05:02 05:02 05:02 WBC 19.7 H (4.8-10.8) x10^3/uL RBC 3.65 L (4.20-5.40) 10^6/uL Hgb 11.6 L (12.0-16.0) g/dL Hct 36.8 L (37.0-47.0) % MCV 100.8 H (81.0-99.0) fL MCH 31.8 H (27.0-31.0) pg MCHC 31.5 L (32.0-36.0) g/dL RDW 20.5 H (12.0-15.0) % Plt Count 363 (130-450) 10^3/uL MPV 9.4 (7.9-10.8) fL Neut # (Auto) Not Reportable Lymph # (Auto) Not Reportable Mitchell # (Auto) Not Reportable Eos # (Auto) Not Reportable Baso # (Auto) Not Reportable Absolute Nucleated RBC Not Reportable Total Counted 100 Band Neuts % (Manual) 0 (0 - 10) % Abnorm Lymph % (Manual) 0 % Promyelocytes % 1 H ( - 0) % Nucleated RBC % Not Reportable Neutrophils # (Manual) 17.7 H (1.5-6.6) 10^3/uL Lymphocytes # (Manual) 0.6 L (1.5-3.5) 10^3/uL Monocytes # (Manual) 1.2 H (0.0-1.0) 10^3/uL Eosinophils # (Manual) 0.0 (0-0.7) 10^3/uL Basophils # (Manual) 0.0 (0-0.1) 10^3/uL Differential Comment MANUAL DIFFERENTIAL WBC Morphology NORMAL APPEARANCE (NORMAL) Platelet Estimate NORMAL (130-450,000) (NORMAL) Platelet Morphology NORMAL APPEARANCE (NORMAL) RBC Morph Micro Appear 1+ HYPOCHROMASIA (NORMAL) Sodium (135-145) mmol/L Potassium (3.5-5.0) mmol/L Chloride (101-111) mmol/L Carbon Dioxide (21-32) mmol/L Anion Gap (6-13) BUN (6-20) mg/dL Creatinine (0.4-1.0) mg/dL Estimated GFR (MDRD) (>89) Glucose (70-100) mg/dL POC Whole Bld Glucose (70 - 100) mg/dL Calcium (8.5-10.3) mg/dL Ionized Calcium Phosphorus (2.5-4.6) mg/dL Magnesium (1.7-2.8) mg/dL B-Natriuretic Peptide 717 H (5-100) pg/mL Last Dose Date UNKNOWN Last Dose Time UNKNOWN Digoxin 1.9 ng/mL 11/24/18 11/23/18 11/23/18 Range/Units 05:02 21:04 17:09 WBC (4.8-10.8) x10^3/uL RBC (4.20-5.40) 10^6/uL Hgb (12.0-16.0) g/dL Hct (37.0-47.0) % MCV (81.0-99.0) fL MCH (27.0-31.0) pg MCHC (32.0-36.0) g/dL RDW (12.0-15.0) % Plt Count (130-450) 10^3/uL MPV (7.9-10.8) fL Neut # (Auto) Lymph # (Auto) Mitchell # (Auto) Eos # (Auto) Baso # (Auto) Absolute Nucleated RBC Total Counted Band Neuts % (Manual) (0 - 10) % Abnorm Lymph % (Manual) % Promyelocytes % ( - 0) % Nucleated RBC % Neutrophils # (Manual) (1.5-6.6) 10^3/uL Lymphocytes # (Manual) (1.5-3.5) 10^3/uL Monocytes # (Manual) (0.0-1.0) 10^3/uL Eosinophils # (Manual) (0-0.7) 10^3/uL Basophils # (Manual) (0-0.1) 10^3/uL Differential Comment WBC Morphology (NORMAL) Platelet Estimate (NORMAL) Platelet Morphology (NORMAL) RBC Morph Micro Appear (NORMAL) Sodium 142 (135-145) mmol/L Potassium 4.4 (3.5-5.0) mmol/L Chloride 104 (101-111) mmol/L Carbon Dioxide 27 (21-32) mmol/L Anion Gap 11.0 (6-13) BUN 49 H (6-20) mg/dL Creatinine 1.1 H (0.4-1.0) mg/dL Estimated GFR (MDRD) 48 L (>89) Glucose 168 H (70-100) mg/dL POC Whole Bld Glucose 157 H 221 H (70 - 100) mg/dL Calcium 10.1 (8.5-10.3) mg/dL Ionized Calcium NO Phosphorus 3.8 (2.5-4.6) mg/dL Magnesium 2.2 (1.7-2.8) mg/dL B-Natriuretic Peptide (5-100) pg/mL Last Dose Date Last Dose Time Digoxin ng/mL Impression and Recommendations - Palliative Care Impression: This is an 83-year-old woman who has metastatic stage IV breast cancer, in the ICU. She presents with pneumonitis, altered mental status, and ongoing functional decline. She can remains acutely ill, with symptoms of delirium, patient unable to participate in goals of care conversation, family meeting did occur for rapport building. Palliative care to follow-up tomorrow regarding further establish meant of report, goals of care, and long-term goals. Recommendations/Counseling Done: 1. Goals of care. Patient unable to participate in conversation today. Did explore with family regarding patient's previous experiences, underlying anxi ety, advanced care planning as well as exploring probable transition to SNF for rehab. They have had a positive experience post CABG, would be willing if consistent with patient's goals and condition. Requested BINDERY MACHINE OPERATOR give them a list of [facility] options, as live at [facility]. Will meet with patient tomorrow am to further explore if able, patient still not stable with current condition. 2. Metastatic breast Cancer with lung mets. Patient presents with ongoing complications regarding her cancer, side effects of treatment, family reports do not have a clear understanding of patient's expected prognosis, though feel patient would continue to choose treatment as long as an option. Patient on the Gopal index, that looks that hospitalized adults age 70 years and older, and all cause 1 year mortality. This is a risk calculator, risk calculators cannot predict the future for any one individual, but an estimate of how many people with similar risk factors will live and but cannot identify who will live and who will . Her score is a 12, that puts her at a 64% risk of 1 year mortality. Time Spent: 60 minutes with greater than 50% of time spent with counseling and family conference, will continue to explore goals of care, patient remains quite frail high risk for ongoing functional and cognitive decline.
[2018-11-24] MEDS: MONTELUKAST 10 MG TABLET PO SCH (20:29)
[2018-11-24] MEDS: PRAVASTATIN 40 MG TABLET PO SCH (20:29)
[2018-11-24] MEDS: METOPROLOL SUCCINATE 25 MG TABLET PO SCH (20:31)
[2018-11-25] MEDS: ALPRAZolam 0.25 MG TABLET PO PRN ×2 (00:10→21:18)
[2018-11-25] MEDS: ACETAMINOPHEN 325 MG TABLET PO PRN ×2 (00:10→21:19)
[2018-11-25] MEDS: SODIUM CHLORIDE FLUSH 0.9% 10 ML SYRINGE IVP SCH ×4 (00:13→16:48)
[2018-11-25] MEDS: methylPREDNISolone SUCCINATE 40 MG/ML VIAL IVP SCH ×3 (05:46→21:19)
[2018-11-25] MEDS: FUROSEMIDE 20 MG/2 ML VIAL IVP SCH ×2 (05:46→14:17)
[2018-11-25] MEDS: SODIUM CHLORIDE FLUSH 0.9% 10 ML SYRINGE IVP PRN ×2 (05:47→05:52)
[2018-11-25 06:51] LABS: BASOPHILS % (AUTO) 0.2 %; MEAN PLATELET VOLUME 11.1 fL (7.9-10.8); RED CELL DISTRIBUTION WIDTH 18.6 % (12.0-15.0)
[2018-11-25 06:54] LABS: EOSINOPHILS % (AUTO) 0.3 %; HGB - HEMOGLOBIN 12.6 g/dL (12.0-16.0); LYMPHOCYTES % (AUTO) 1.6 %; MEAN CORPUSCULAR HEMOGLOBIN 31.3 pg (27.0-31.0); MEAN CORPUSCULAR HGB CONC 31.4 g/dL (32.0-36.0); MEAN CORPUSCULAR VOLUME 99.8 fL (81.0-99.0); MONOCYTES % (AUTO) 3.9 %; NEUTROPHILS % (AUTO) 90.1 %; PLT - PLATELET COUNT 424 10^3/uL (130-450); RED BLOOD COUNT 4.02 10^6/uL (4.20-5.40); WHITE BLOOD COUNT 24.4 x10^3/uL (4.8-10.8)
[2018-11-25 07:02] LABS: CALCIUM 10.2 mg/dL (8.5-10.3); CREATININE 1.1 mg/dL (0.4-1.0)
[2018-11-25 07:18] LABS: ABNORMAL LYMPHS % (MANUAL) 0 %
[2018-11-25] MEDS: BUDESONIDE 0.5 MG/2 ML NEB INH SCH ×2 (07:20→19:55)
[2018-11-25] MEDS: FORMOTEROL FUMARATE NEB 20 MCG/2 ML INH SCH ×2 (07:20→19:55)
[2018-11-25] MEDS: LEVALBUTEROL 1.25 MG/3 ML NEB INH PRN ×2 (07:20→19:55)
[2018-11-25 07:24] LABS: BAND NEUTROPHILS % (MANUAL) 1 %; LYMPHOCYTES # (MANUAL) 2.2 10^3/uL (1.5-3.5); LYMPHOCYTES % (MANUAL) 9 %; METAMYELOCYTES % (MANUAL) 1 %; MONOCYTES # (MANUAL) 0.5 10^3/uL (0.0-1.0); NEUTROPHILS # (MANUAL) 21.5 10^3/uL (1.5-6.6); NEUTROPHILS % (MANUAL) 87 %
[2018-11-25 07:25] LABS: PLATELET MORPHOLOGY NORMAL APPEARANCE (NORMAL)
[2018-11-25 07:26] LABS: DIFFERENTIAL COMMENT MANUAL DIFFERENTIAL; PLATELET ESTIMATE, MANUAL NORMAL (130-450,000) (NORMAL)
[2018-11-25] MEDS: POLYETHYLENE GLYCOL 3350 17 GM PACKET PO SCH (08:20)
[2018-11-25] MEDS: MULTIVITAMIN TABLET PO SCH (08:22)
[2018-11-25] MEDS: ALLOPURINOL 100 MG TABLET PO SCH (08:22)
[2018-11-25] MEDS: CHOLECALCIFEROL 400 UNIT TABLET PO SCH (08:22)
[2018-11-25] MEDS: ASPIRIN EC 81 MG TABLET PO SCH (08:22)
[2018-11-25] MEDS: METOPROLOL SUCCINATE 25 MG TABLET PO SCH ×2 (08:23→21:18)
[2018-11-25] MEDS: CALCIUM CARB (OYSTER SHELL) 500 MG TABLET PO SCH (08:24)
[2018-11-25] MEDS: FERROUS SULFATE 325 MG TABLET PO SCH ×2 (08:25→16:47)
[2018-11-25] MEDS: FAMOTIDINE 20 MG TABLET PO SCH (08:25)
[2018-11-25] MEDS: LACTOBACILLUS RHAMNOSUS GG CAPSULE PO SCH (08:25)
[2018-11-25] MEDS: VENLAFAXINE 37.5 MG TABLET PO SCH ×2 (08:25→21:18)
[2018-11-25] MEDS: INSULIN GLARGINE 300 UNIT/3 ML PEN SUBQ SCH ×2 (08:27→21:19)
[2018-11-25] MEDS: INSULIN ASPART 300 UNIT/3 ML PEN SUBQ SCH ×7 (08:27→21:20)
[2018-11-25] MEDS: LIDOCAINE PATCH 5% TOP SCH (08:30)
[2018-11-25] MEDS: ENOXAPARIN 30 MG/0.3 ML SYRINGE SUBQ SCH (08:31)
[2018-11-25] MEDS ORDERED: ACETAMINOPHEN 500 MG TABLET PO SCH (09:00)
--- NOTE | 2018-11-25 11:20 | PROVIDER PROGRESS NOTE ---
Assessment/Plan - Problem List (1) Pneumonitis Assessment/Plan: She requires less supplemental O2, since a few days ago and is speaking without being breathlessness today. Continue treatment of pneumonia and COPD. (2) Pleural effusion Assessment/Plan: She has now become 500-1000cc neg fluid balance. Continue with gentle diuresis. He Pur-Wik will be removed, she can use a bedpan or bedside commode, as she is regaining strength. (3) Acute hypoxemic respiratory failure Assessment/Plan: Improving, is multifactorial: from pleural effusions and pneumonia. (4) COPD exacerbation Assessment/Plan: Improving. Continue steroids, nebs and Singulair. (5) Uncontrolled insulin dependent diabetes mellitus Assessment/Plan: Continue with carb controlled diet, long-acting in nutritional insulin and sliding scale insulin. (6) Hypertension Assessment/Plan: Fairly good control on current management. (7) Chronic a-fib Assessment/Plan: Hr is controled on p[resent po med doses, continue this. She cannot be on an anticoagulant because of her history of subdural bleed. 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 He notices moments of confusion while she is here which are probably worsened from the stress and infection and being in a strange place. There is no agitation to consider sundowning. (9) Anemia Qualifiers: Anemia type: iron deficiency Assessment/Plan: She tolerates her iron replacement tablets. (10) Metastatic breast cancer Assessment/Plan: She was recently on chemotherapy. Palliative care continues to work with the patient, saw her today and they had a one-on-one discussion. (11) Depression Assessment/Plan: The patient had a lengthy meeting today with Dayanara Tirado NP regarding Palliative Care. The patient described being depressed and Dayanara recommended to increase her Effexor back to bid. There was a plan to wean it to off over 2 weeks, by the previous Hospitalist, for unclear reason. This will be changed. (12) History of pulmonary embolism Assessment/Plan: She cannot be on an anticoagulant because of her history of subdural bleed. (13) Delirium Assessment/Plan: Resolved. Narcotics orders all stopped. - Current Meds Current Meds: Current Medications Generic Name Dose Route Start Last Admin Trade Name Freq PRN Reason Stop Dose Admin Acetaminophen 650 mg 11/24/18 12:07 11/25/18 00:10 Tylenol PO 650 mg Q4HR PRN Administration Pain or Fever > 38C (100.4F) Alendronate Sodium 70 mg 11/22/18 06:30 11/23/18 08:02 Fosamax PO 70 mg Q7D [facility] Administration Allopurinol 100 mg 11/23/18 09:00 11/25/18 08:22 Zyloprim PO 100 mg DAILY [facility] Administration Alprazolam 0.5 mg 11/24/18 17:23 11/25/18 00:10 Xanax PO 0.5 mg QPM PRN Administration Anxiety Aspirin 81 mg 11/19/18 09:00 11/25/18 08:22 Ecotrin PO 81 mg DAILY [facility] Administration Budesonide 0.5 mg 11/19/18 19:00 11/25/18 07:20 Pulmicort INH 0.5 mg RTBID [facility] Administration Calcium Carbonate/Glycine 500 mg 11/24/18 11:00 11/25/18 08:24 Oysco-500 PO 500 mg DAILY [facility] Administration Cholecalciferol 800 unit 11/25/18 09:00 11/25/18 08:22 Vitamin D3 PO 800 unit DAILY [facility] Administration Enoxaparin Sodium 30 mg 11/19/18 09:00 11/25/18 08:31 Lovenox SUBQ 30 mg DAILY [facility] Administration Famotidine 20 mg 11/18/18 21:00 11/25/18 08:25 Pepcid PO 20 mg DAILY [facility] Administration Ferrous Sulfate 325 mg 11/19/18 17:00 11/25/18 08:25 Feosol PO 325 mg BIDWM [facility] Administration Formoterol Fumarate 20 mcg 11/22/18 09:00 11/25/18 07:20 Perforomist INH 20 mcg RTBID [facility] Administration Furosemide 20 mg 11/24/18 06:00 11/25/18 05:46 Lasix Inj 20mg Vial IVP 20 mg BIDDIURETIC [facility] Administration Levofloxacin 250 mg in 50 mls @ 50 mls/hr 11/22/18 14:00 11/24/18 15:01 Levaquin 250 Mg/50 Ml IV Infused Q24H [facility] Infusion Insulin Aspart 3 - 11 unit 11/21/18 08:00 11/25/18 08:27 Novolog SUBQ 3 unit 0800,1200,1700,2100 [facility] Administration Protocol Insulin Aspart 4 unit 11/24/18 12:00 11/25/18 08:28 Novolog SUBQ 4 unit TIDWM [facility] Administration Protocol Insulin Glargine 18 unit 11/23/18 09:00 11/25/18 08:27 Lantus Solostar SUBQ 18 unit BID [facility] Administration Lactobacillus Rhamnosus 1 cap 11/22/18 09:00 11/25/18 08:25 Culturelle PO 1 cap DAILY [facility] Administration Levalbuterol HCl 1.25 mg 11/18/18 16:58 11/25/18 07:20 Xopenex INH 1.25 mg Q4H PRN Administration Shortness of Air/Wheezing Lidocaine 1 patch 11/20/18 13:56 11/25/18 08:30 Lidoderm Patch TOP 1 patch DAILY [facility] Administration Methylprednisolone 40 mg 11/21/18 09:00 11/25/18 05:46 Solu-Medrol (40mg Vial) IVP 40 mg TID [facility] Administration Metoprolol Succinate 25 mg 11/24/18 21:00 11/25/18 08:23 Toprol Xl PO 25 mg BID [facility] Administration Mineral Oil 1 applic 11/21/18 03:58 11/24/18 13:19 Cavilon TOP 1 applic PRN PRN Administration Skin Care Montelukast Sodium 10 mg 11/20/18 21:00 11/24/18 20:29 Singulair PO 10 mg QPM [facility] Administration Multivitamins 1 tab 11/25/18 09:00 11/25/18 08:22 Theragran PO 1 tab DAILY [facility] Administration (Letrozole [ 1 each 11/19/18 09:00 11/25/18 08:21 Letrozole] 2.5mg Tab PO 1 each ) DAILY [facility] Administration Polyethylene Glycol 17 gm 11/19/18 09:00 11/25/18 08:20 Miralax PO 17 gm DAILY [facility] Administration Pravastatin Sodium 40 mg 11/24/18 21:00 11/24/18 20:29 Pravachol PO 40 mg QPM [facility] Administration Sodium Chloride 10 ml 11/18/18 16:49 11/25/18 05:52 Normal Saline Flush 0.9% IVP 10 ml PRN PRN Administration NEEDED PER PROVIDER ORDERS Sodium Chloride 10 ml 11/18/18 17:00 11/25/18 08:34 Normal Saline Flush 0.9% IVP 10 ml 0100,0900,1700 [facility] Administration - Lab Result Fish Bone Diagrams: 11/25/18 06:44 11/25/18 06:44 - Additional Planning My Orders: My Active Orders 11/24/18 11:00 Calcium Carb (Oyster Shell) [Oysco-500] 500 mg PO DAILY 11/24/18 12:00 Insulin Aspart [NovoLOG] 4 unit SUBQ TIDWM 11/24/18 12:07 Acetaminophen [Tylenol] 650 mg PO Q4HR PRN 11/24/18 17:23 ALPRAZolam [Xanax] 0.5 mg PO QPM PRN 11/24/18 21:00 Metoprolol Succinate [Toprol Xl] 25 mg PO BID Pravastatin [Pravachol] 40 mg PO QPM 11/25/18 09:00 Cholecalciferol [Vitamin D3] 800 unit PO DAILY Multivitamin [Theragran] 1 tab PO DAILY 11/25/18 21:00 Venlafaxine [Effexor] 37.5 mg PO BID 11/26/18 05:00 BMP - BASIC METABOLIC PANEL [CHEM] DAILYLAB Subjective - Subjective Patient Reports: Feeling Better Nursing Reports: Other (She could only stand briefly at side of bed, when started with PT.) Objective Vital Signs: Vital Signs - 24 hr 11/24/18 11/24/18 11/24/18 11:59 13:00 14:56 Temperature 36.5 C Heart Rate Heart Rate [ Brachial] Heart Rate [ 87 77 81 Monitoring electrodes] Respiratory 18 18 21 Rate Blood Pressure 164/77 H [Right Brachial artery] O2 Saturation 96 96 95 11/24/18 11/24/18 11/24/18 16:00 19:38 20:00 Temperature 36.5 C 36.5 C Heart Rate 71 Heart Rate [ 93 Brachial] Heart Rate [ 84 Monitoring electrodes] Respiratory 22 22 20 Rate Blood Pressure 151/69 H 150/64 H [Right Brachial artery] O2 Saturation 100 98 11/24/18 11/24/18 11/25/18 22:42 23:36 04:00 Temperature 36.5 C 36.4 C L Heart Rate 82 Heart Rate [ 85 81 Brachial] Heart Rate [ Monitoring electrodes] Respiratory 18 16 18 Rate Blood Pressure 145/65 H 130/65 [Right Brachial artery] O2 Saturation 97 97 11/25/18 11/25/18 07:20 08:00 Temperature 36.5 C Heart Rate 102 H Heart Rate [ 81 Brachial] Heart Rate [ Monitoring electrodes] Respiratory 24 24 Rate Blood Pressure 165/85 H [Right Brachial artery] O2 Saturation 94 Oxygen O2 Source [With Activity] Room air O2 Source [Without Activity] Room air O2 Source Nasal cannula Oxygen Flow Rate 2 I&O (Last 24 Hrs): Intake and Output Totals x24h 11/23/18 11/24/18 11/25/18 23:59 23:59 23:59 Intake Total 1925.202 1680 401.417 Output Total 640 1725 1200 Balance 458.583 -525 -798.583 General: Alert, Oriented x3 HEENT: Mucous membr. moist/pink Neck: Supple Neuro: Non Focal Cardiovascular: No murmurs Respiratory: No respiratory distress, Breath sounds nml Abdomen: Soft Extremities: No edema - Results Results: Laboratory Results WBC 24.4 x10^3/uL (4.8-10.8) H 11/25/18 06:44 RBC 4.02 10^6/uL (4.20-5.40) L 11/25/18 06:44 Hgb 12.6 g/dL (12.0-16.0) 11/25/18 06:44 Hct 40.1 % (37.0-47.0) 11/25/18 06:44 MCV 99.8 fL (81.0-99.0) H 11/25/18 06:44 MCH 31.3 pg (27.0-31.0) H 11/25/18 06:44 MCHC 31.4 g/dL (32.0-36.0) L 11/25/18 06:44 RDW 18.6 % (12.0-15.0) H 11/25/18 06:44 Plt Count 424 10^3/uL (130-450) 11/25/18 06:44 MPV 11.1 fL (7.9-10.8) H 11/25/18 06:44 Neut # (Auto) Not Reportable 11/25/18 06:44 Lymph # (Auto) Not Reportable 11/25/18 06:44 [place] # (Auto) Not Reportable 11/25/18 06:44 Eos # (Auto) Not Reportable 11/25/18 06:44 Baso # (Auto) Not Reportable 11/25/18 06:44 Absolute Nucleated RBC Not Reportable 11/25/18 06:44 Total Counted 100 11/25/18 06:44 Band Neuts % (Manual) 1 % (0-10) 11/25/18 06:44 Abnorm Lymph % (Manual) 0 % 11/25/18 06:44 Metamyelocytes % 1 % (-0) H 11/25/18 06:44 Promyelocytes % 1 % (-0) H 11/24/18 05:02 Nucleated RBC % Not Reportable 11/25/18 06:44 Neutrophils # (Manual) 21.5 10^3/uL (1.5-6.6) H 11/25/18 06:44 Lymphocytes # (Manual) 2.2 10^3/uL (1.5-3.5) 11/25/18 06:44 Monocytes # (Manual) 0.5 10^3/uL (0.0-1.0) 11/25/18 06:44 Eosinophils # (Manual) 0.0 10^3/uL (0-0.7) 11/25/18 06:44 Basophils # (Manual) 0.0 10^3/uL (0-0.1) 11/25/18 06:44 Nucleated RBCs 1 % 11/25/18 06:44 Differential Comment MANUAL DIFFERENTIAL 11/25/18 06:44 Manual Slide Review Indicated 11/21/18 04:55 WBC Morphology NORMAL APPEARANCE (NORMAL) 11/25/18 06:44 Platelet Estimate NORMAL (130-450,000) (NORMAL) 11/25/18 06:44 Platelet Morphology NORMAL APPEARANCE (NORMAL) 11/25/18 06:44 RBC Morph Micro Appear 1+ ANISOCYTOSIS (NORMAL) 1+ MACROCYTOSIS (NORMAL) 1+ HYPOCHROMASIA (NORMAL) 1+ POLYCHROMASIA (NORMAL) 1+ OVALOCYTES (NORMAL) 04:50 RBC Morph Micro Appear 1+ ANISOCYTOSIS (NORMAL) 1+ MACROCYTOSIS (NORMAL) 1+ H YPOCHROMASIA (NORMAL) 1+ POLYCHROMASIA (NORMAL) 1+ OVALOCYTES (NORMAL) 11/20/18 04:50 RBC Morph Micro Appear 1+ ANISOCYTOSIS (NORMAL) 1+ MACROCYTOSIS (NORMAL) 1+ HYPOCHROMASIA (NORMAL) 1+ POLYCHROMASIA (NORMAL) 1+ OVALOCYTES (NORMAL) 11/20/18 04:50 RBC Morph Micro Appear 1+ ANISOCYTOSIS (NORMAL) 1+ MACROCYTOSIS (NORMAL) 1+ HYPOCHROMASIA (NORMAL) 1+ POLYCHROMASIA (NORMAL) 1+ OVALOCYTES (NORMAL) 11/20/18 04:50 RBC Morph Micro Appear 1+ ANISOCYTOSIS (NORMAL) 1+ MACROCYTOSIS (NORMAL) 1+ HYPOCHROMASIA (NORMAL) 1+ POLYCHROMASIA (NORMAL) 1+ OVALOCYTES (NORMAL) 11/20/18 04:50 RBC Morph Micro Appear 1+ ANISOCYTOSIS (NORMAL) 1+ MACROCYTOSIS (NORMAL) 1+ HYPOCHROMASIA (NORMAL) 1+ OVALOCYTES (NORMAL) 11/21/18 04:55 RBC Morph Micro Appear 1+ ANISOCYTOSIS (NORMAL) 1+ MACROCYTOSIS (NORMAL) 1+ HYPOCHROMASIA (NORMAL) 1+ OVALOCYTES (NORMAL) 11/21/18 04:55 RBC Morph Micro Appear 1+ ANISOCYTOSIS (NORMAL) 1+ MACROCYTOSIS (NORMAL) 1+ HYPOCHROMASIA (NORMAL) 1+ OVALOCYTES (NORMAL) 11/21/18 04:55 RBC Morph Micro Appear 1+ ANISOCYTOSIS (NORMAL) 1+ MACROCYTOSIS (NORMAL) 1+ HYPOCHROMASIA (NORMAL) 1+ OVALOCYTES (NORMAL) 11/21/18 04:55 RBC Morph Micro Appear 1+ ANISOCYTOSIS (NORMAL) 1+ HYPOCHROMASIA (NORMAL) 11/24/18 05:02 RBC Morph Micro Appear 1+ ANISOCYTOSIS (NORMAL) 1+ HYPOCHROMASIA (NORMAL) 11/24/18 05:02 RBC Morph Micro Appear 1+ OVALOCYTES (NORMAL) 1+ TARGET CELLS (NORMAL) 1+ STOMATOCYTES (NORMAL) 11/25/18 06:44 RBC Morph Micro Appear 1+ OVALOCYTES (NORMAL) 1+ TARGET CELLS (NORMAL) 1+ STOMATOCYTES (NORMAL) 11/25/18 06:44 RBC Morph Micro Appear 1+ OVALOCYTES (NORMAL) 1+ TARGET CELLS (NORMAL) 1+ STOMATOCYTES (NORMAL) 11/25/18 06:44 ESR 57 mm/Hr (0-30) H 11/18/18 20:00 D-Dimer > 1050.0 ng/mL (200.0-255.0) H 11/18/18 16:57 VBG pH 7.456 (7.31-7.41) H 11/22/18 04:15 Ionized Calcium 1.24 mmol/L (1.15-1.33) 11/22/18 04:15 Sodium 144 mmol/L (135-145) 11/25/18 06:44 Potassium 3.6 mmol/L (3.5-5.0) 11/25/18 06:44 Chloride 100 mmol/L (101-111) L 11/25/18 06:44 Carbon Dioxide 30 mmol/L (21-32) 11/25/18 06:44 Anion Gap 14.0 (6-13) H 11/25/18 06:44 BUN 47 mg/dL (6-20) H 11/25/18 06:44 Creatinine 1.1 mg/dL (0.4-1.0) H 11/25/18 06:44 Estimated GFR (MDRD) 48 (>89) L 11/25/18 06:44 Glucose 155 mg/dL (70-100) H 11/25/18 06:44 POC Whole Bld Glucose 157 mg/dL (70 - 100) H 11/23/18 21:04 Lactic Acid 1.8 mmol/L (0.5-2.2) 11/21/18 09:11 Uric Acid 7.6 mg/dL (2.6-7.2) H 11/18/18 16:57 Calcium 10.2 mg/dL (8.5-10.3) 11/25/18 06:44 Ionized Calcium NO 11/24/18 05:02 Phosphorus 3.8 mg/dL (2.5-4.6) 11/24/18 05:02 Magnesium 2.2 mg/dL (1.7-2.8) 11/24/18 05:02 Iron 13 ug/dL (28-170) L 11/18/18 20:00 TIBC 217 ug/dL (250-450) L 11/18/18 20:00 % Saturation 6 % (20-50) L 11/18/18 20:00 Transferrin 155 mg/dL (192-382) L 11/18/18 20:00 Total Bilirubin 0.7 mg/dL (0.2-1.0) 11/22/18 04:15 AST 26 IU/L (10-42) 11/22/18 04:15 ALT 20 IU/L (10-60) 11/22/18 04:15 Alkaline Phosphatase 74 IU/L (42-121) 11/22/18 04:15 Troponin I < 0.04 ng/mL (<0.49) 11/21/18 09:11 B-Natriuretic Peptide 717 pg/mL (5-100) H 11/24/18 05:02 Total Protein 6.8 g/dL (6.7-8.2) 11/22/18 04:15 Albumin 2.8 g/dL (3.2-5.5) L 11/22/18 04:15 Globulin 4.0 g/dL (2.1-4.2) 11/22/18 04:15 Albumin/Globulin Ratio 0.7 (1.0-2.2) L 11/22/18 04:15 Lipase 23 U/L (22-51) 11/18/18 15:47 Vitamin B12 896 pg/mL (180-914) 11/18/18 20:00 Folate 33.00 ng/mL (5.90 - >24.8) 11/18/18 20:00 TSH 3.31 uIU/mL (0.34-5.60) 11/18/18 16:57 Nasal Screen MRSA (PCR) POSITIVE (NEGATIVE) A* 11/18/18 17:45 Stl Occult Blood (IFOB) NEGATIVE (NEGATIVE) 11/22/18 03:00 Last Dose Date UNKNOWN 11/24/18 05:02 Last Dose Time UNKNOWN 11/24/18 05:02 Digoxin 1.9 ng/mL 11/24/18 05:02 Ref Lab Test Result REPORT 11/18/18 20:00 - Procedures Procedures: Procedures INSERT VAD RESERVOIR IN CHEST SUBCU/FASCIA, PERC (05/25/18) INSERTION OF INFUSION DEVICE INTO R ATRIUM, PERC APPROACH (05/25/18) TRANSFUSE NONAUT RED BLOOD CELLS IN PERIPH VEIN, PERC (10/18/16) Sepsis Event Note (H) - Sepsis Criteria Sepsis Criteria: Recorded Heart Rate greater than 90 bpm, Respiratory: Increasing oxygen requirements
--- NOTE | 2018-11-25 12:38 | CONSULTATION NOTE ---
Palliative Care Follow Up - Referral Referring Provider: Dr. Kit Pérez Time of Visit: 2830-6125 Referral setting: Hospitalized patient Referral Reason: Depression/Met Breast Ca with liver mets/Pneumonitis - Information Sources Records reviewed: Previous records reviewed History/Review of Systems obtained from: Patient Exam limitations: Clinical condition (some forgetfulness; much clearer today) - History of Present Illness Update Brief HPI Update: [facility] 11/24. 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 Currently being treated for pneumonia and pneum onitis. She had altered mental status yesterday, does seem to be clearing. She reports she does remember being confused, she is still having some word finding issues, as well as short-term memory. She reports she has been having more feelings of confusion, getting eat more easily mixed up over the last several weeks to months. She did clear through the conversation over the next 45 minutes. She does report improved as far as her shortness of breath, feels less tight. Does get breathless though with any kind of conversation. Patient reports pain is improved, she does have a lidocaine patch on her left thoracic area, she reports this is helped. She does have known fractures. She still feels very weak, and is concerned about her transition home, she is aware most likely she will be discharged to a rehab program. She does understand the necessity of this, and does admit with her increased care needs would not be able to be met at home. Social History - Living Situation Living arrangement: At home Living Situation: With spouse/s.o., With family Support System: He lives at home with her , who continues to work 4 days a week. She does express concern, her does not understand her limitations, and her ongoing decline. She reports she is always been strong, that he is always been around strong women, and feels he has difficulty recognizing her current decline in limitations. She reports her son Reilly does help her, though in discussing if she needed personal care or more intermittent care as far as toileting etc., she felt she would need to have to hire that help with assistance. Her hope is to be independent again, though does recognize she is quite fragile currently Medications/Allergies - Medications Active Medication List: Active Medications Acetaminophen (Tylenol) 650 mg PO Q4HR PRN PRN Reason: Pain or Fever > 38C (100.4F) Last Admin: 11/25/18 00:10 Dose: 650 mg Alendronate Sodium (Fosamax) 70 mg PO Q7D [facility] Last Admin: 11/23/18 08:02 Dose: 70 mg Allopurinol (Zyloprim) 100 mg PO DAILY [facility] Last Admin: 11/25/18 08:22 Dose: 100 mg Alprazolam (Xanax) 0.5 mg PO QPM PRN PRN Reason: Anxiety Last Admin: 11/25/18 00:10 Dose: 0.5 mg Aspirin (Ecotrin) 81 mg PO DAILY [facility] Last Admin: 11/25/18 08:22 Dose: 81 mg Benzonatate (Tessalon) 100 mg PO TID PRN PRN Reason: Cough Budesonide (Pulmicort) 0.5 mg INH RTBID [facility] Last Admin: 11/25/18 07:20 Dose: 0.5 mg Calcium Carbonate/Glycine (Oysco-500) 500 mg PO DAILY [facility] Last Admin: 11/25/18 08:24 Dose: 500 mg Cholecalciferol (Vitamin D3) 800 unit PO DAILY [facility] Last Admin: 11/25/18 08:22 Dose: 800 unit Enoxaparin Sodium (Lovenox) 30 mg SUBQ DAILY [facility] Last Admin: 11/25/18 08:31 Dose: 30 mg Famotidine (Pepcid) 20 mg PO DAILY [facility] Last Admin: 11/25/18 08:25 Dose: 20 mg Ferrous Sulfate (Feosol) 325 mg PO BIDWM [facility] Last Admin: 11/25/18 08:25 Dose: 325 mg Formoterol Fumarate (Perforomist) 20 mcg INH RTBID [facility] Last Admin: 11/25/18 07:20 Dose: 20 mcg Furosemide (Lasix Inj 20mg Vial) 20 mg IVP BIDDIURETIC [facility] Last Admin: 11/25/18 05:46 Dose: 20 mg Levofloxacin (Levaquin 250 Mg/50 Ml) 250 mg in 50 mls @ 50 mls/hr IV Q24H [facility] Last Infusion: 11/24/18 15:01 Dose: Infused Insulin Aspart (Novolog) 3 - 11 unit SUBQ 0800,1200,1700,2100 [facility]; Protocol Last Admin: 11/25/18 11:46 Dose: 3 unit Insulin Aspart (Novolog) 4 unit SUBQ TIDWM [facility]; Protocol Last Admin: 11/25/18 11:46 Dose: 4 unit Insulin Glargine (Lantus Solostar) 18 unit SUBQ BID [facility] Last Admin: 11/25/18 08:27 Dose: 18 unit Lactobacillus Rhamnosus (Culturelle) 1 cap PO DAILY [facility] Last Admin: 11/25/18 08:25 Dose: 1 cap Levalbuterol HCl (Xopenex) 1.25 mg INH Q4H PRN PRN Reason: Shortness of Air/Wheezing Last Admin: 11/25/18 07:20 Dose: 1.25 mg Lidocaine (Lidoderm Patch) 1 patch TOP DAILY [facility] Last Admin: 11/25/18 08:30 Dose: 1 patch Methylprednisolone (Solu-Medrol (40mg Vial)) 40 mg IVP TID [facility] Last Admin: 11/25/18 05:46 Dose: 40 mg Metoprolol Succinate (Toprol Xl) 25 mg PO BID [facility] Last Admin: 11/25/18 08:23 Dose: 25 mg Mineral Oil (Cavilon) 1 applic TOP PRN PRN PRN Reason: Skin Care Last Admin: 11/24/18 13:19 Dose: 1 applic Montelukast Sodium (Singulair) 10 mg PO QPM [facility] Last Admin: 11/24/18 20:29 Dose: 10 mg Multivitamins (Theragran) 1 tab PO DAILY [facility] Last Admin: 11/25/18 08:22 Dose: 1 tab (Letrozole [ Letrozole] 2.5mg Tab ) 1 each PO DAILY [facility] Last Admin: 11/25/18 08:21 Dose: 1 each Polyethylene Glycol (Miralax) 17 gm PO DAILY [facility] Last Admin: 11/25/18 08:20 Dose: 17 gm Pravastatin Sodium (Pravachol) 40 mg PO QPM [facility] Last Admin: 11/24/18 20:29 Dose: 40 mg Prochlorperazine Edisylate (Compazine Inj) 10 mg IVP Q6HR PRN PRN Reason: Nausea / Vomiting Sodium Chloride (Normal Saline Flush 0.9%) 10 ml IVP PRN PRN PRN Reason: NEEDED PER PROVIDER ORDERS Last Admin: 11/25/18 05:52 Dose: 10 ml Sodium Chloride (Normal Saline Flush 0.9%) 10 ml IVP 0100,0900,1700 [facility] Last Admin: 11/25/18 08:34 Dose: 10 ml Venlafaxine HCl (Effexor) 37.5 mg PO BID [facility] Stop: 11/28/18 09:00 Allopurinol [Zyloprim] 150 mg PO DAILY 11/16/12 Metoprolol Succinate [Toprol Xl] 25 mg PO DAILY 11/16/12 Potassium Chloride [K-Tab ER] 10 meq PO BID 11/16/12 Furosemide 40 mg PO DAILY 10/17/16 Insulin Glargine [Lantus] 15 units SUBQ QPM 10/17/16 Lisinopril [Zestril] 5 mg PO DAILY 10/17/16 Pantoprazole Sodium 40 mg PO QDAC 10/17/16 Pravastatin [Pravachol] 40 mg PO QPM 10/18/16 Alendronate [Fosamax] 70 mg PO Q7D 05/12/18 Aspirin [Adult Aspirin Regimen] 81 mg PO DAILY 05/18/18 Calcium Carbonate/Vitamin D3 [Calcium 600-Vit D3 800 Tablet] 2 tab PO DAILY 05/18/18 Multivitamin/Iron/Folic Acid [Centrum Adults Tablet] 1 tab PO DAILY 05/18/18 Acetaminophen [Tylenol Extra Strength] 1,000 mg PO DAILY 05/25/18 Sitagliptin Phosphate [Januvia] 50 mg PO DAILY 05/25/18 Letrozole 2.5 mg PO DAILY 09/02/18 Albuterol Sulfate [Proair Hfa Inhaler] 2 puffs INH Q6H PRN 11/18/18 Palbociclib [Ibrance] 100 mg PO DAILY 11/18/18 Venlafaxine HCl 37.5 mg PO BID 11/18/18 - Allergies Allergies/Adverse Reactions: Allergies Allergy/AdvReac Type Severity Reaction Status Date / Time Sulfa (Sulfonamide Allergy Severe Hives Verified 11/18/18 14:16 Antibiotics) adhesive Allergy Mild Rash Verified 11/18/18 14:16 Penicillins Allergy Hives Verified 11/18/18 15:00 Review of Systems - Constitutional Constitutional: reports: Fatigue, Poor appetite - Eyes Eyes: reports: Vision loss (reports improved) - Ears, Nose & Throat Ears, Nose & Throat: reports: Hearing loss (mild), Dry mouth - Cardiovascular Cardiovascular: reports: Decr. exercise tolerance - Respiratory Respiratory: reports: Orthopnea, SOB at rest (improved), SOB with exertion, Pleuritic pain (decreased per patient's perception with deep breathing). denies: Cough - Gastrointestinal Gastrointestinal: reports: Abdominal distention, Diarrhea (this am), Early satiety. denies: Nausea, Reflux/heartburn - Genitourinary Genitourinary: reports: Incontinence - Musculoskeletal Musculoskeletal: reports: Stiffness, Muscle weakness, Assistive devices (walker with assist) - Integumentary Integumentary: reports: Dryness - Neurological Neurological: reports: General weakness, Memory problems (much improved; having some word finding problem; aware was confused) - Psychiatric Psychiatric: reports: Depression, Anxiety - Endocrine Endocrine: reports: Diabetes type 2 - All Other Systems All Other Systems: reports: Reviewed and negative Physical Exam - Vital Signs Vital Signs: Vital Signs x48h Temp Pulse Pulse Resp BP Pulse Ox 11/25/18 11:22 37.0 C 52 L 20 164/77 H 96 11/25/18 08:00 36.5 C 81 24 165/85 H 94 11/25/18 07:20 102 H 24 - Physical Exam General Appearance: positive: No acute distress, Anxious Eyes Bilateral: positive: Normal inspection ENT: positive: Dry mucous membranes. negative: Pharyngeal erythema, Oral lesions Neck: positive: No JVD, Trachea midline Cardiovascular: positive: Regular rate & rhythm Respiratory: positive: Diminished throughout. negative: Wheezes, Rales, Rhonchi Abdomen: positive: Non-tender, Soft, Nml bowel sounds, Obese Skin: positive: Pallor Extremities: positive: No pedal edema Neurologic/Psychiatric: positive: Oriented x3, Weakness, Flat affect Palliative Care - POLST Patient has POLST: Yes POLST Status: DNR, Selective Treatment Pain: Pain improved, Location (LLL rib area; feels lidocaine patch has helped; no pain with deep inspiration previously had) Tiredness/Fatigue: Severe (7-10) Drowsiness/Sedation: Mild (1-3) Nausea: None Depression: Moderate (4-6) Anxiety: Severe (7-10) Dyspnea: Moderate (4-6) (improved) Anorexia: Mild (1-3) Sleep: Variable sleep pattern Feelings of wellbeing/Perceived Quality of Life: Fair, Worsening Performance Status: Has been having ongoing functional decline, not only with the most acute episode, but overall. She has been needing to use the transport wheelchair in the home, is unable to walk longer distance, some related to her dyspnea and other to her activity intolerance and fatigue. Currently she is working with PT, she is at maximum assist and guard as far as ambulating with walker. - Palliative Care Discussion: Patient and I were able to meet one-on-one. Patient's understanding of her disease is that she was quite disappointed that her breast cancer came back after 10 years. When asked what her understanding of her current disease and prognosis was, she reports "I think of it is a disease that is going to go away again". 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 When asked about her end-of-life, as she did appreciate taking care of patients and families and of life during her career, she admits she would not want to be home. When trying to explore this further, she perceives herself as "being in the way". She rep orts families were always somewhat different, and "I assume I am different to". We did discuss all families have different ways of coping and ways of viewing illness and expectations. When asked if she and Ish talked at all about her condition, or concerns regarding her illness, she expresses she feels like he has not really seeing how much she has declined. She does admit to depression, does talk to her kids, but her friends are in [place] as well as what she perceives her support network to be. She has had both her primary care doctor Dr. Coyle, and Dr. Joseph, leave, she is feeling somewhat abandoned, and having trouble trusting and finding ways to deal with her current situation. She does admit to being tired, she has had quite a few things happen over the last several years, but reports she does not deal with things by focusing on them but often ignoring them. When asked what brings her xavier, she is very much attached to her dogs. She has a kary dog named Shyam, who is 10 years old and is "my dog". She worries about "everything" particularly around her dogs and family. She worries about everything getting done, she reports she has underlying anxiety and depression. He is very tired, and very much wants to be at home. Though she does recognize currently with her weakness, she will need a transition plan, and appears to be at peace with going to a SNF We did discuss in the context of palliative care providing a layer support, has someone to process some of these feelings and information. Recognizing it is quite scary to her, offering to go at her pace, she did feel this would be helpful in the future, and will schedule a visit when she is discharged from SNF. She has not established with new oncologist yet. Results - Lab Results Lab results reviewed: Yes Fish Bones: 11/25/18 06:44 11/25/18 06:44 Lab and Imaging Results: Lab Results x24hrs 11/25/18 11/25/18 Range/Units 06:44 06:44 WBC 24.4 H (4.8-10.8) x10^3/uL RBC 4.02 L (4.20-5.40) 10^6/uL Hgb 12.6 (12.0-16.0) g/dL Hct 40.1 (37.0-47.0) % MCV 99.8 H (81.0-99.0) fL MCH 31.3 H (27.0-31.0) pg MCHC 31.4 L (32.0-36.0) g/dL RDW 18.6 H (12.0-15.0) % Plt Count 424 (130-450) 10^3/uL MPV 11.1 H (7.9-10.8) fL Neut # (Auto) Not Reportable Lymph # (Auto) Not Reportable Meade # (Auto) Not Reportable Eos # (Auto) Not Reportable Baso # (Auto) Not Reportable Absolute Nucleated RBC Not Reportable Total Counted 100 Band Neuts % (Manual) 1 (0 - 10) % Abnorm Lymph % (Manual) 0 % Metamyelocytes % 1 H ( - 0) % Nucleated RBC % Not Reportable Neutrophils # (Manual) 21.5 H (1.5-6.6) 10^3/uL Lymphocytes # (Manual) 2.2 (1.5-3.5) 10^3/uL Monocytes # (Manual) 0.5 (0.0-1.0) 10^3/uL Eosinophils # (Manual) 0.0 (0-0.7) 10^3/uL Basophils # (Manual) 0.0 (0-0.1) 10^3/uL Nucleated RBCs 1 % Differential Comment MANUAL DIFFERENTIAL WBC Morphology NORMAL APPEARANCE (NORMAL) Platelet Estimate NORMAL (130-450,000) (NORMAL) Platelet Morphology NORMAL APPEARANCE (NORMAL) RBC Morph Micro Appear 1+ STOMATOCYTES (NORMAL) Sodium 144 (135-145) mmol/L Potassium 3.6 (3.5-5.0) mmol/L Chloride 100 L (101-111) mmol/L Carbon Dioxide 30 (21-32) mmol/L Anion Gap 14.0 H (6-13) BUN 47 H (6-20) mg/dL Creatinine 1.1 H (0.4-1.0) mg/dL Estimated GFR (MDRD) 48 L (>89) Glucose 155 H (70-100) mg/dL Calcium 10.2 (8.5-10.3) mg/dL Impression and Recommendations - Palliative Care Impression: This is a 83-year-old woman with metastatic breast cancer with lung mets, is currently completed chemotherapy and radiation. She does present with pneumonitis most likely as a side effect of her treatments, as well as presumed pneumonia. She is recovering, her cardiac status is stabilizing, and patient's mental status is clearing. Patient with moderate to high symptom burden, introduction to palliative care to provide support and develop rapport, as well as set the stage for anticipatory guidance given patient's ongoing functional decline and seriousness of her illness. Recommendations/Counseling Done: 1. Depression. This is multifactorial in origin, complicated by her underlying anxiety disorder. She has been on Effexor 37.5 mg twice a day for several years, and has found this beneficial. We did discuss in the context of support, and counseling, may benefit from ongoing palliative care. Would recommend restarting, had started to titrate back secondary to confusion, patient has cleared and most likely not underlying cause of her deterioration. Able to acknowledge her coping strategies, as distraction, denial, and morris rtmentalizing. We will continue to explore ways to support patient and her current trajectory. 2. Generalized weakness. Patient at this point in time would not be able to meet her personal care needs, this would be important as far as managing at home. Would recommend pursue SNF placement for strengthening as well as management of ADLs. If patient continues to have functional decline, will need hired assistance for support for patient and . 3. Metastatic stage IV breast cancer with lung mets. Patient currently without identified treatment plan. Patient has been on letrozole and Ibrance, unclear if Ibrance has added to her risk of pneumonitis or was induced by her radiation. Currently with her pancytopenia, is on hold. We will follow-up with oncologist, regarding prognosis to better be able to support patient and her family and anticipatory guidance. 4. Confusion. This is multifactorial in origin, has mostly cleared. Patient though has not received any brain scan, if patient continues with cognitive decline or ongoing issues may want to rule out brain mets. 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 This was exacerbated with her delirium, and medications. She is currently improving, would continue monitoring. 5. Advanced care planning. Patient does have a POLST in place with DNA R/DNI and selective treatments. Patient's goals are to return home, spend time with her dogs and family. She is hoping to return to some previous level of function where she feels more "useful". Patient does present with moderate symptom burden, and both functional and cognitive decline. We will continue to provide support and anticipatory guidance. Will follow up on outpatient palliative care referral. Time Spent: 40 minutes with greater than 50% of the time spent in counseling, establishing rapport with patient, exploring goals, as well as current understanding of c ondition.
[2018-11-25] MEDS: PRAVASTATIN 40 MG TABLET PO SCH (21:18)
[2018-11-25] MEDS: MONTELUKAST 10 MG TABLET PO SCH (21:18)
[2018-11-26] MEDS: ACETAMINOPHEN 325 MG TABLET PO PRN ×3 (01:39→21:41)
[2018-11-26 05:32] LABS: CALCIUM 9.5 mg/dL (8.5-10.3)
[2018-11-26] MEDS: SODIUM CHLORIDE FLUSH 0.9% 10 ML SYRINGE IVP SCH ×3 (07:06→16:23)
[2018-11-26] MEDS: SODIUM CHLORIDE FLUSH 0.9% 10 ML SYRINGE IVP PRN (07:06)
[2018-11-26] MEDS: methylPREDNISolone SUCCINATE 40 MG/ML VIAL IVP SCH ×2 (07:07→21:41)
[2018-11-26] MEDS: FUROSEMIDE 20 MG/2 ML VIAL IVP SCH (07:07)
[2018-11-26] MEDS: FORMOTEROL FUMARATE NEB 20 MCG/2 ML INH SCH ×2 (07:27→18:17)
[2018-11-26] MEDS: LEVALBUTEROL 1.25 MG/3 ML NEB INH PRN (07:27)
[2018-11-26] MEDS: BUDESONIDE 0.5 MG/2 ML NEB INH SCH ×2 (07:28→18:17)
[2018-11-26] MEDS: ALLOPURINOL 100 MG TABLET PO SCH (09:08)
[2018-11-26] MEDS: VENLAFAXINE 37.5 MG TABLET PO SCH ×2 (09:08→21:41)
[2018-11-26] MEDS: FAMOTIDINE 20 MG TABLET PO SCH (09:09)
[2018-11-26] MEDS: FERROUS SULFATE 325 MG TABLET PO SCH ×2 (09:09→17:00)
[2018-11-26] MEDS: METOPROLOL SUCCINATE 25 MG TABLET PO SCH ×2 (09:09→21:40)
[2018-11-26] MEDS: MULTIVITAMIN TABLET PO SCH (09:09)
[2018-11-26] MEDS: LACTOBACILLUS RHAMNOSUS GG CAPSULE PO SCH (09:10)
[2018-11-26] MEDS: ASPIRIN EC 81 MG TABLET PO SCH (09:10)
[2018-11-26] MEDS: CALCIUM CARB (OYSTER SHELL) 500 MG TABLET PO SCH (09:11)
[2018-11-26] MEDS: CHOLECALCIFEROL 400 UNIT TABLET PO SCH (09:11)
[2018-11-26] MEDS: INSULIN ASPART 300 UNIT/3 ML PEN SUBQ SCH ×6 (09:13→21:46)
[2018-11-26] MEDS: ENOXAPARIN 30 MG/0.3 ML SYRINGE SUBQ SCH (09:14)
[2018-11-26] MEDS: INSULIN GLARGINE 300 UNIT/3 ML PEN SUBQ SCH ×2 (09:14→21:46)
[2018-11-26] MEDS: LIDOCAINE PATCH 5% TOP SCH (09:20)
[2018-11-26] MEDS: POLYETHYLENE GLYCOL 3350 17 GM PACKET PO SCH (09:22)
--- NOTE | 2018-11-26 11:47 | PROVIDER PROGRESS NOTE ---
Assessment/Plan - Problem List (1) Pneumonitis Assessment/Plan: Her respiratory status improves slightly daily with lower supplemental O2 requirements, less breathlessness and no wheezing. 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 Will re-image the chest today. (2) Pleural effusion Assessment/Plan: As in #1 Will start to decrease the diuretic from iv bid to daily. Await CXR results (3) COPD exacerbation Assessment/Plan: As in #1. Will continue nebs, start titrating the steroid down, continue Singulair (4) Uncontrolled insulin dependent diabetes mellitus Assessment/Plan: Glu running 100's. Will stop the nutritional Insulin, continue carb-controlled diet and glu checks with coverage (5) Hypertension Assessment/Plan: Continue current meds, BP under fair control. (6) Chronic a-fib Assessment/Plan: HR stable on current meds. She cannot be on an anticoagulant because of her history of subdural bleed. 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 She was still supposed to get PRN benzodiazepine at p.m. which will be stopped (8) Anemia Qualifiers: Anemia type: iron deficiency Assessment/Plan: Continue iron replacements orally (9) Metastatic breast cancer Assessment/Plan: She is on hormone tablet daily, the other chemotherapy medication was stopped in admission. Palliative care has seen her twice since this admission, and there is documentation that she has no understanding of the cancer disease process and her prognosis. (10) Depression Assessment/Plan: The Effexor dose was increased from daily to twice daily yesterday, after Palliative Care determined that she is depressed. At admission the Hospitalist had decreased her dose, possibly to decrease sedation. (11) History of pulmonary embolism Assessment/Plan: She is not on anticoagulation, has an IVC filter in place (12) Delirium Assessment/Plan: Resolved, after the morphine, oxycodone and sedatives were stopped - Current Meds Current Meds: Current Medications Generic Name Dose Route Start Last Admin Trade Name Freq PRN Reason Stop Dose Admin Acetaminophen 650 mg 11/24/18 12:07 11/26/18 11:31 Tylenol PO 650 mg Q4HR PRN Administration Pain or Fever > 38C (100.4F) Alendronate Sodium 70 mg 06/16/19 06:30 11/23/18 08:02 Fosamax PO 70 mg Q7D [facility] Administration Allopurinol 100 mg 11/23/18 09:00 11/26/18 09:08 Zyloprim PO 100 mg DAILY [facility] Administration Alprazolam 0.5 mg 11/24/18 17:23 11/25/18 21:18 Xanax PO 0.5 mg QPM PRN Administration Anxiety Aspirin 81 mg 11/19/18 09:00 11/26/18 09:10 Ecotrin PO 81 mg DAILY [facility] Administration Budesonide 0.5 mg 11/19/18 19:00 11/26/18 07:28 Pulmicort INH 0.5 mg RTBID [facility] Administration Calcium Carbonate/Glycine 500 mg 11/24/18 11:00 11/26/18 09:11 Oysco-500 PO 500 mg DAILY [facility] Administration Cholecalciferol 800 unit 11/25/18 09:00 11/26/18 09:11 Vitamin D3 PO 800 unit DAILY [facility] Administration Enoxaparin Sodium 30 mg 11/19/18 09:00 11/26/18 09:14 Lovenox SUBQ 30 mg DAILY [facility] Administration Famotidine 20 mg 11/18/18 21:00 11/26/18 09:09 Pepcid PO 20 mg DAILY [facility] Administration Ferrous Sulfate 325 mg 11/19/18 17:00 11/26/18 09:09 Feosol PO 325 mg BIDWM [facility] Administration Formoterol Fumarate 20 mcg 11/22/18 09:00 11/26/18 07:27 Perforomist INH 20 mcg RTBID [facility] Administration Furosemide 20 mg 11/24/18 06:00 11/26/18 07:07 Lasix Inj 20mg Vial IVP 20 mg BIDDIURETIC [facility] Administration Levofloxacin 250 mg in 50 mls @ 50 mls/hr 11/22/18 14:00 11/25/18 15:17 Levaquin 250 Mg/50 Ml IV Infused Q24H [facility] Infusion Insulin Aspart 3 - 11 unit 11/21/18 08:00 11/26/18 09:13 Novolog SUBQ Not Given 0800,1200,1700,2100 [facility] Protocol Insulin Aspart 4 unit 11/24/18 12:00 11/26/18 09:13 Novolog SUBQ 4 unit TIDWM [facility] Administration Protocol Insulin Glargine 18 unit 11/23/18 09:00 11/26/18 09:14 Lantus Solostar SUBQ 18 unit BID [facility] Administration Lactobacillus Rhamnosus 1 cap 11/22/18 09:00 11/26/18 09:10 Culturelle PO 1 cap DAILY [facility] Administration Levalbuterol HCl 1.25 mg 11/18/18 16:58 11/26/18 07:27 Xopenex INH 1.25 mg Q4H PRN Administration Shortness of Air/Wheezing Lidocaine 1 patch 11/20/18 13:56 11/26/18 09:20 Lidoderm Patch TOP 1 patch DAILY [facility] Administration Methylprednisolone 40 mg 11/21/18 09:00 11/26/18 07:07 Solu-Medrol (40mg Vial) IVP 40 mg TID [facility] Administration Metoprolol Succinate 25 mg 11/24/18 21:00 11/26/18 09:09 Toprol Xl PO 25 mg BID [facility] Administration Mineral Oil 1 applic 11/21/18 03:58 11/24/18 13:19 Cavilon TOP 1 applic PRN PRN Administration Skin Care Montelukast Sodium 10 mg 11/20/18 21:00 11/25/18 21:18 Singulair PO 10 mg QPM [facility] Administration Multivitamins 1 tab 11/25/18 09:00 11/26/18 09:09 Theragran PO 1 tab DAILY [facility] Administration (Letrozole [ 1 each 11/19/18 09:00 11/26/18 09:11 Letrozole] 2.5mg Tab PO 1 each ) DAILY [facility] Administration Polyethylene Glycol 17 gm 11/19/18 09:00 11/26/18 09:22 Miralax PO Not Given DAILY [facility] Pravastatin Sodium 40 mg 11/24/18 21:00 11/25/18 21:18 Pravachol PO 40 mg QPM [facility] Administration Sodium Chloride 10 ml 11/18/18 16:49 11/26/18 07:06 Normal Saline Flush 0.9% IVP 10 ml PRN PRN Administration NEEDED PER PROVIDER ORDERS Sodium Chloride 10 ml 11/18/18 17:00 11/26/18 09:23 Normal Saline Flush 0.9% IVP 10 ml 0100,0900,1700 [facility] Administration Venlafaxine HCl 37.5 mg 11/25/18 21:00 11/26/18 09:08 Effexor PO 11/28/18 09:00 37.5 mg BID [facility] Administration - Lab Result Fish Bone Diagrams: 11/25/18 06:44 11/26/18 05:10 - Additional Planning My Orders: My Active Orders 11/25/18 16:51 Miscellaenous Nursing Order [RC] ONCE 11/25/18 16:55 Miscellaenous Nursing Order [RC] QSHIFT 11/25/18 21:00 Venlafaxine [Effexor] 37.5 mg PO BID 11/26/18 12:00 Vancomycin Per Pharmacy [Vancomycin-Pharmacy To Dose] 100 gm Sodium Chloride 0.9% [Normal Saline 0.9%] 250 ml IV Q400H Subjective - Subjective Patient Reports: No Complaints, Other (Sitting up in chair, is napping, says she walked with PT) Objective Vital Signs: Vital Signs - 24 hr 11/25/18 11/25/18 11/25/18 13:45 16:00 19:58 Temperature 37 C 36.3 C L Heart Rate 52 L 99 Heart Rate [ 84 Brachial] Respiratory 20 18 18 Rate Blood Pressure 148/57 H [Right Brachial artery] O2 Saturation 96 3 L 11/25/18 11/25/18 11/26/18 20:00 23:27 04:00 Temperature 36.4 C L 36.3 C L Heart Rate Heart Rate [ 60 98 95 Brachial] Respiratory 22 22 24 Rate Blood Pressure 148/88 H 150/79 H 162/96 H [Right Brachial artery] O2 Saturation 93 92 92 11/26/18 11/26/18 07:31 08:45 Temperature 37 C Heart Rate 90 Heart Rate [ 97 Brachial] Respiratory 18 22 Rate Blood Pressure 159/73 H [Right Brachial artery] O2 Saturation 97 Oxygen O2 Source [With Activity] Room air O2 Source [Without Activity] Room air O2 Source Nasal cannula Oxygen Flow Rate 2 I&O (Last 24 Hrs): Intake and Output Totals x24h 11/24/18 11/25/18 11/26/18 23:59 23:59 23:59 Intake Total 1200 981.417 360 Output Total 1725 3450 800 Rxghowf -660 -3258.583 -440 General: No acute distress, Other (Somnolent but awakens to name) HEENT: Mucous membr. moist/pink Neck: Supple Neuro: Non Focal Cardiovascular: No murmurs Respiratory: No respiratory distress, Other (Diminishe BS at bases, no wheezing or rales) Abdomen: Soft, Other (Obese) - Results Results: Laboratory Results WBC 24.4 x10^3/uL (4.8-10.8) H 11/25/18 06:44 RBC 4.02 10^6/uL (4.20-5.40) L 11/25/18 06:44 Hgb 12.6 g/dL (12.0-16.0) 11/25/18 06:44 Hct 40.1 % (37.0-47.0) 11/25/18 06:44 MCV 99.8 fL (81.0-99.0) H 11/25/18 06:44 MCH 31.3 pg (27.0-31.0) H 11/25/18 06:44 MCHC 31.4 g/dL (32.0-36.0) L 11/25/18 06:44 RDW 18.6 % (12.0-15.0) H 11/25/18 06:44 Plt Count 424 10^3/uL (130-450) 11/25/18 06:44 MPV 11.1 fL (7.9-10.8) H 11/25/18 06:44 Neut # (Auto) Not Reportable 11/25/18 06:44 Lymph # (Auto) Not Reportable 11/25/18 06:44 [place] # (Auto) Not Reportable 11/25/18 06:44 Eos # (Auto) Not Reportable 11/25/18 06:44 Baso # (Auto) Not Reportable 11/25/18 06:44 Absolute Nucleated RBC Not Reportable 11/25/18 06:44 Total Counted 100 11/25/18 06:44 Band Neuts % (Manual) 1 % (0-10) 11/25/18 06:44 Abnorm Lymph % (Manual) 0 % 11/25/18 06:44 Metamyelocytes % 1 % (-0) H 11/25/18 06:44 Promyelocytes % 1 % (-0) H 11/24/18 05:02 Nucleated RBC % Not Reportable 11/25/18 06:44 Neutrophils # (Manual) 21.5 10^3/uL (1.5-6.6) H 11/25/18 06:44 Lymphocytes # (Manual) 2.2 10^3/uL (1.5-3.5) 11/25/18 06:44 Monocytes # (Manual) 0.5 10^3/uL (0.0-1.0) 11/25/18 06:44 Eosinophils # (Manual) 0.0 10^3/uL (0-0.7) 11/25/18 06:44 Basophils # (Manual) 0.0 10^3/uL (0-0.1) 11/25/18 06:44 Nucleated RBCs 1 % 11/25/18 06:44 Differential Comment MANUAL DIFFERENTIAL 11/25/18 06:44 Manual Slide Review Indicated 11/21/18 04:55 WBC Morphology NORMAL APPEARANCE (NORMAL) 11/25/18 06:44 Platelet Estimate NORMAL (130-450,000) (NORMAL) 11/25/18 06:44 Platelet Morphology NORMAL APPEARANCE (NORMAL) 11/25/18 06:44 RBC Morph Micro Appear 1+ ANISOCYTOSIS (NORMAL) 1+ MACROCYTOSIS (NORMAL) 1+ HYPOCHROMASIA (NORMAL) 1+ POLYCHROMASIA (NORMAL) 1+ OVALOCYTES (NORMAL) 11/20/18 04:50 RBC Morph Micro Appear 1+ ANISOCYTOSIS (NORMAL) 1+ MACROCYTOSIS (NORMAL) 1+ HYPOCHROMASIA (NORMAL) 1+ POLYCHROMASIA (NORMAL) 1+ OVALOCYTES (NORMAL) 11/20/18 04:50 RBC Morph Micro Appear 1+ ANISOCYTOSIS (NORMAL) 1+ MACROCYTOSIS (NORMAL) 1+ HYPOCHROMASIA (NORMAL) 1+ POLYCHROMASIA (NORMAL) 1+ OVALOCYTES (NORMAL) 11/20/18 04:50 RBC Morph Micro Appear 1+ ANISOCYTOSIS (NORMAL) 1+ MACROCYTOSIS (NORMAL) 1+ HYPOCHROMASIA (NORMAL) 1+ POLYCHROMASIA (NORMAL) 1+ OVALOCYTES (NORMAL) 11/20/18 04:50 RBC Morph Micro Appear 1+ ANISOCYTOSIS (NORMAL) 1+ MACROCYTOSIS (NORMAL) 1+ HYPOCHROMASIA (NORMAL) 1+ POLYCHROMASIA (NORMAL) 1+ OVALOCYTES (NORMAL) 11/20/18 04:50 RBC Morph Micro Appear 1+ ANISOCYTOSIS (NORMAL) 1+ MACROCYTOSIS (NORMAL) 1+ HYPOCHROMASIA (NORMAL) 1+ OVALOCYTES (NORMAL) 11/21/18 04:55 RBC Morph Micro Appear 1+ ANISOCYTOSIS (NORMAL) 1+ MACROCYTOSIS (NORMAL) 1+ HYPOCHROMASIA (NORMAL) 1+ OVALOCYTES (NORMAL) 11/21/18 04:55 RBC Morph Micro Appear 1+ ANISOCYTOSIS (NORMAL) 1+ MACROCYTOSIS (NORMAL) 1+ HYPOCHROMASIA (NORMAL) 1+ OVALOCYTES (NORMAL) 11/21/18 04:55 RBC Morph Micro Appear 1+ ANISOCYTOSIS (NORMAL) 1+ MACROCYTOSIS (NORMAL) 1+ HYPOCHROMASIA (NORMAL) 1+ OVALOCYTES (NORMAL) 11/21/18 04:55 RBC Morph Micro Appear 1+ ANISOCYTOSIS (NORMAL) 1+ HYPOCHROMASIA (NORMAL) 11/24/18 05:02 RBC Morph Micro Appear 1+ ANISOCYTOSIS (NORMAL) 1+ HYPOCHROMASIA (NORMAL) 11/24/18 05:02 RBC Morph Micro Appear 1+ OVALOCYTES (NORMAL) 1+ TARGET CELLS (NORMAL) 1+ STOMATOCYTES (NORMAL) 11/25/18 06:44 RBC Morph Micro Appear 1+ OVALOCYTES (NORMAL) 1+ TARGET CELLS (NORMAL) 1+ STOMATOCYTES (NORMAL) 11/25/18 06:44 RBC Morph Micro Appear 1+ OVALOCYTES (NORMAL) 1+ TARGET CELLS (NORMAL) 1+ STOMATOCYTES (NORMAL) 11/25/18 06:44 ESR 57 mm/Hr (0-30) H 11/18/18 20:00 D-Dimer > 1050.0 ng/mL (200.0-255.0) H 11/18/18 16:57 VBG pH 7.456 (7.31-7.41) H 11/22/18 04:15 Ionized Calcium 1.24 mmol/L (1.15-1.33) 11/22/18 04:15 Sodium 147 mmol/L (135-145) H 11/26/18 05:10 Potassium 2.8 mmol/L (3.5-5.0) L 11/26/18 05:10 Chloride 99 mmol/L (101-111) L 11/26/18 05:10 Carbon Dioxide 36 mmol/L (21-32) H 11/26/18 05:10 Anion Gap 12.0 (6-13) 11/26/18 05:10 BUN 45 mg/dL (6-20) H 11/26/18 05:10 Creatinine 1.0 mg/dL (0.4-1.0) 11/26/18 05:10 Estimated GFR (MDRD) 53 (>89) L 11/26/18 05:10 Glucose 116 mg/dL (70-100) H 11/26/18 05:10 POC Whole Bld Glucose 157 mg/dL (70 - 100) H 11/23/18 21:04 Lactic Acid 1.8 mmol/L (0.5-2.2) 11/21/18 09:11 Uric Acid 7.6 mg/dL (2.6-7.2) H 11/18/18 16:57 Calcium 9.5 mg/dL (8.5-10.3) 11/26/18 05:10 Ionized Calcium NO 11/24/18 05:02 Phosphorus 3.8 mg/dL (2.5-4.6) 11/24/18 05:02 Magnesium 2.2 mg/dL (1.7-2.8) 11/24/18 05:02 Iron 13 ug/dL (28-170) L 11/18/18 20:00 TIBC 217 ug/dL (250-450) L 11/18/18 20:00 % Saturation 6 % (20-50) L 11/18/18 20:00 Transferrin 155 mg/dL (192-382) L 11/18/18 20:00 Total Bilirubin 0.7 mg/dL (0.2-1.0) 11/22/18 04:15 AST 26 IU/L (10-42) 11/22/18 04:15 ALT 20 IU/L (10-60) 11/22/18 04:15 Alkaline Phosphatase 74 IU/L (42-121) 11/22/18 04:15 Troponin I < 0.04 ng/mL (<0.49) 11/21/18 09:11 B-Natriuretic Peptide 717 pg/mL (5-100) H 11/24/18 05:02 Total Protein 6.8 g/dL (6.7-8.2) 11/22/18 04:15 Albumin 2.8 g/dL (3.2-5.5) L 11/22/18 04:15 Globulin 4.0 g/dL (2.1-4.2) 11/22/18 04:15 Albumin/Globulin Ratio 0.7 (1.0-2.2) L 11/22/18 04:15 Lipase 23 U/L (22-51) 11/18/18 15:47 Vitamin B12 896 pg/mL (180-914) 11/18/18 20:00 Folate 33.00 ng/mL (5.90 - >24.8) 11/18/18 20:00 TSH 3.31 uIU/mL (0.34-5.60) 11/18/18 16:57 Nasal Screen MRSA (PCR) POSITIVE (NEGATIVE) A* 11/18/18 17:45 Stl Occult Blood (IFOB) NEGATIVE (NEGATIVE) 11/22/18 03:00 Last Dose Date UNKNOWN 11/24/18 05:02 Last Dose Time UNKNOWN 11/24/18 05:02 Digoxin 1.9 ng/mL 11/24/18 05:02 Ref Lab Test Result REPORT 11/18/18 20:00 - Procedures Procedures: Procedures INSERT VAD RESERVOIR IN CHEST SUBCU/FASCIA, PERC (05/25/18) INSERTION OF INFUSION DEVICE INTO R ATRIUM, PERC APPROACH (05/25/18) TRANSFUSE NONAUT RED BLOOD CELLS IN PERIPH VEIN, PERC (10/18/16) Sepsis Event Note (H) - Sepsis Criteria Sepsis Criteria: Recorded Heart Rate greater than 90 bpm, Respiratory: Increasing oxygen requirements
[2018-11-26] MEDS ORDERED: VANCOMYCIN PER PHARMACY 100 GM in SODIUM CHLORIDE 0.9% 250 ML IV SCH (12:00)
[2018-11-26] MEDS ORDERED: VANCOMYCIN INJ 1 GM in SODIUM CHLORIDE 0.9% 250 ML IV SCH (13:00)
[2018-11-26] MEDS: VANCOMYCIN INJ 1 GM in SODIUM CHLORIDE 0.9% 250 ML IV SCH (14:35)
[2018-11-26] MEDS ORDERED: POTASSIUM CHLORIDE 20 MEQ TABLET PO SCH (17:46)
[2018-11-26] MEDS: MONTELUKAST 10 MG TABLET PO SCH (21:40)
[2018-11-26] MEDS: PRAVASTATIN 40 MG TABLET PO SCH (21:41)
--- NOTE | 2018-11-26 22:18 | XRAY Report ---
Reason: F/U pneumonia and pleural effusions Procedure Date: 11/26/2018 Accession Number: [id number] / [id number] Procedure: XR - Chest 1 View X-Ray CPT Code: 38288 FULL RESULT: EXAM: CHEST RADIOGRAPHY EXAM DATE: 11/26/2018 01:05 PM. CLINICAL HISTORY: F/U pneumonia and pleural effusions. COMPARISON: CHEST 1 VIEW 11/24/2018 9:05 AM CHEST 1 VIEW 11/21/2018 7:29 AM. TECHNIQUE: 1 view. FINDINGS: Lungs/Pleura: Slight interval improvement in right infiltrates. Stable left effusion. No pneumothorax. Mediastinum: Stable postoperative changes and cardiomegaly. Other: Stable left subclavian port. IMPRESSION: Slight improvement in right infiltrates. Stable left effusion. RADIA
[2018-11-27] MEDS: ACETAMINOPHEN 325 MG TABLET PO PRN ×3 (01:50→14:58)
[2018-11-27] MEDS: SODIUM CHLORIDE FLUSH 0.9% 10 ML SYRINGE IVP SCH ×2 (02:04→10:07)
[2018-11-27] MEDS: VANCOMYCIN INJ 1 GM in SODIUM CHLORIDE 0.9% 250 ML IV SCH ×2 (02:11→14:50)
[2018-11-27 05:07] LABS: BASOPHILS # (AUTO) 0.1 10^3/uL (0.0-0.1); BASOPHILS % (AUTO) 0.4 %; EOSINOPHILS % (AUTO) 0.1 %; HGB - HEMOGLOBIN 13.3 g/dL (12.0-16.0); LYMPHOCYTES # (AUTO) 0.4 10^3/uL (1.5-3.5); LYMPHOCYTES % (AUTO) 1.2 %; MEAN CORPUSCULAR HEMOGLOBIN 31.3 pg (27.0-31.0); MEAN CORPUSCULAR HGB CONC 31.4 g/dL (32.0-36.0); MEAN CORPUSCULAR VOLUME 99.5 fL (81.0-99.0); MEAN PLATELET VOLUME 11.5 fL (7.9-10.8); MONOCYTES # (AUTO) 2.1 10^3/uL (0.0-1.0); MONOCYTES % (AUTO) 6.9 %; NEUTROPHILS # (AUTO) 26.1 10^3/uL (1.5-6.6); NEUTROPHILS % (AUTO) 87.4 %; PLT - PLATELET COUNT 402 10^3/uL (130-450); RED BLOOD COUNT 4.25 10^6/uL (4.20-5.40); RED CELL DISTRIBUTION WIDTH 18.5 % (12.0-15.0); WHITE BLOOD COUNT 29.8 x10^3/uL (4.8-10.8)
[2018-11-27 05:18] LABS: CALCIUM 9.1 mg/dL (8.5-10.3); CREATININE 0.9 mg/dL (0.4-1.0); MAGNESIUM 1.8 mg/dL (1.7-2.8)
[2018-11-27 05:47] LABS: PLATELET ESTIMATE, MANUAL NORMAL (130-450,000) (NORMAL)
[2018-11-27 05:48] LABS: DIFFERENTIAL COMMENT MANUAL=AUTO DIFF
[2018-11-27] MEDS ORDERED: POTASSIUM CHLORIDE 20 MEQ TABLET PO ONE ×2 (06:58→08:30)
[2018-11-27] MEDS ORDERED: POTASSIUM CHLOR 10 MEQ/100 ML 10 MEQ/100 ML BAG IV SCH (07:00)
--- NOTE | 2018-11-27 08:05 | Discharge Plan ---
"Discharge Plan for SNF / [facility] - Discharge Plan And Transition Orders Disposition: 03 SNF DC/Xfer Condition: Fair Allergies and Adverse Reactions: Allergies Allergy/AdvReac Type Severity Reaction Status Date / Time Sulfa (Sulfonamide Allergy Severe Hives Verified 11/18/18 14:16 Antibiotics) adhesive Allergy Mild Rash Verified 11/18/18 14:16 Penicillins Allergy Hives Verified 11/18/18 15:00 Health Concerns: She has COPD and breast CA, worsening memory and deconditioned after hospitalization Plan of Treatment: Finish antibiotics, continue inhalers, rehab at SNF Care Goals: She agrees to rehab and then wants to return home Assessment: She is deconditioned, slowly improving with PT - SNF / [facility] Transition Orders Admit to (Facility): [facility] Under the care of (Name): Dr Renetta Mayberry Discharge Diagnosis: (1) Pneumonitis, finishing antibiotics (2) Pleural effusions, bilateral (3) Hypokalemia, due to diuretics (4) COPD exacerbation (5) IDDM, with neuropathy and retinopathy (6) Hypertension (7) Chronic a-fib, not on anticoagulants due to Hx of subdural hematoma after a fall (8) Memory deficit after TIAs (9) Iron deficiency anemia (10) Metastatic breast cancer, Oncologist is Dr Joseph at the [facility] (11) Depression (12) Weakness and deconditioning (13) History of pulmonary embolism with IVC filter in place (14) 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 Notify PCP of admission and forward orders to primary provider for signature. Weight on admission and: Weekly Call PCP immediately if weight increases by: 5 kg Other Notification Orders: Call PCP immediately if patient develops dyspnea, chest pain/tightness or edema. House Bowel Program: Yes Additional Bowel Program Orders: If no BM after 2 days, nurse may give M.O.M. 30ml PO PRN and/or ducolax Supp 1 [place] and/or [place] 250mg P.O., and/or senna 1-2 tabs PO. On day 3 nurse may give repeat above order until residents constipation is resolved. Annual Influenza Vaccine (between Feb 07 and September 06): Yes Two-step PPD per [facility] [id number] or approved exception documents: Yes Treatments & Other Orders: Daily PT and OT Oxygen Orders: None Lab Tests or X-ray Orders: BMP on Mon, Wed, Fri Medication Orders: PLEASE REFER TO THE DISCHARGE MEDICATION LIST. Insulin Orders?: Yes - Medications New Prescriptions: Acetaminophen [Tylenol Extra Strength] 500 mg PO BID #60 tablet Ferrous Sulfate 325 mg PO DAILY #30 tablet Fluticasone/Salmeterol [Advair 250-50 Diskus] 1 each IH BID #1 blst.w.dev Insulin Aspart [NovoLOG] 3 - 11 unit SUBQ 0800,1200,1700,2100 #2 pen Lactobacillus Rhamnosus GG [Culturelle] 1 cap PO DAILY #2 capsule levoFLOXacin [Levaquin] 500 mg PO DAILY #4 tablet Lidocaine Patch 5% [Lidoderm Patch] 1 patch TOP DAILY #30 patch Metoprolol Succinate [Toprol Xl] 25 mg PO TID #90 tablet Montelukast [Singulair] 10 mg PO QPM #30 tablet Prednisone 5 mg PO DAILY #7 tablet Tiotropium [place] [Spiriva] 1 puffs INH DAILY 30 Days #30 each - Diet Type: No added salt (Diabetic diet) Texture: Regular Liquids: Thin May have monthly special meal: Yes - Therapies | Activity Therapy: Evaluation | Treat if indicated: PT, OT Rehabilitation Potential: Maximize functional status Activity: Activity as Tolerated Weight Bearing: Full Weight Assistance Devices: Walker Additional Instructions: You were admitted with pneumonia and fluid in the lungs plus rapid Afib. You are being discharged for Physical Therapy for strengthening and to finish the antibiotics (and probiotic and tapering steroid). You are on new inhalers and lung medicines now which should be continued. Your other pre-hospital medications should be resumed; some of those doses were changed here. Follow Up: See your PCP [facility]. Insulin Orders - SNF Basal | Correction | Custom Orders: Diagnosis: Diabetes Initiate hypo and hyperglycemia protocols for BG <70 and BG >375. May check BG PRN for signs/symptoms of dysglycemia. Frequency of BG checks: [AC/Meal/HS] Basal Insulin: [X] Lantus 100 units / ml inject subq as follows: 15 U sq bid Correction Insulin: - Select the type of insulin below [Choose: Novolog/Humalog]100 units /ml insulin inject subq per orders indicate below [] LOW DOSE [X] MODERATE DOSE [] MODERATE/HIGH DOSE [] HIGH DOSE GB UNITS GB UNITS GB UNITS GB UNITS 61-140 0 UNITS 61-140 0 UNITS 61-140 0 UNITS 61-140 0 UNITS 141-175 1 UNITS 141-175 1 UNITS 141-175 2 UNITS 141-175 3 UNITS 176-225 2 UNITS 176-225 3 UNITS 176-225 4 UNITS 176-225 5 UNITS 226-275 3 UNITS 226-275 5 UNITS 226-275 6 UNITS 226-275 7 UNITS 276-325 4 UNITS 276-325 7 UNITS 276-325 8 UNITS 276-325 9 UNITS 326-375 5 UNITS 326-375 9 UNITS 326-375 10 UNITS 326-375 11 UNITS >375 CONTACT MD >375 CONTACT MD >375 CONTACT MD >375 CONTACT MD"
[2018-11-27] MEDS: FORMOTEROL FUMARATE NEB 20 MCG/2 ML INH SCH (08:16)
[2018-11-27] MEDS ORDERED: FUROSEMIDE 20 MG/2 ML VIAL IVP SCH (09:00)
[2018-11-27] MEDS ORDERED: levoFLOXacin 250 MG TABLET PO SCH ×2 (09:00)
[2018-11-27] MEDS: INSULIN ASPART 300 UNIT/3 ML PEN SUBQ SCH ×2 (09:44→11:50)
[2018-11-27] MEDS: BUDESONIDE 0.5 MG/2 ML NEB INH SCH (09:51)
[2018-11-27] MEDS: methylPREDNISolone SUCCINATE 40 MG/ML VIAL IVP SCH (10:07)
[2018-11-27] MEDS: ENOXAPARIN 30 MG/0.3 ML SYRINGE SUBQ SCH (10:18)
[2018-11-27] MEDS: POLYETHYLENE GLYCOL 3350 17 GM PACKET PO SCH (10:18)
[2018-11-27] MEDS: LIDOCAINE PATCH 5% TOP SCH (10:18)
[2018-11-27] MEDS: METOPROLOL SUCCINATE 25 MG TABLET PO SCH (10:20)
[2018-11-27] MEDS: FERROUS SULFATE 325 MG TABLET PO SCH (10:20)
[2018-11-27] MEDS: LACTOBACILLUS RHAMNOSUS GG CAPSULE PO SCH (10:21)
[2018-11-27] MEDS: POTASSIUM CHLOR 10 MEQ/100 ML 10 MEQ/100 ML BAG IV SCH ×4 (10:21→16:11)
[2018-11-27] MEDS: CHOLECALCIFEROL 400 UNIT TABLET PO SCH (10:21)
[2018-11-27] MEDS: MULTIVITAMIN TABLET PO SCH (10:22)
[2018-11-27] MEDS: ALLOPURINOL 100 MG TABLET PO SCH (10:22)
[2018-11-27] MEDS: FAMOTIDINE 20 MG TABLET PO SCH (10:23)
[2018-11-27] MEDS: CALCIUM CARB (OYSTER SHELL) 500 MG TABLET PO SCH (10:23)
[2018-11-27] MEDS: VENLAFAXINE 37.5 MG TABLET PO SCH (10:23)
[2018-11-27] MEDS: ASPIRIN EC 81 MG TABLET PO SCH (10:24)
[2018-11-27] MEDS: INSULIN GLARGINE 300 UNIT/3 ML PEN SUBQ SCH (10:31)
--- NOTE | 2018-11-27 10:36 | DISCHARGE SUMMARY ---
Discharge Summary Admit Date: 11/18/18 Discharge Date: 11/27/18 Discharging Provider: Dr Deann Heredia Primary Care Provider: Dr Matthew Logan Code Status: Do Not Attempt Resuscitation Condition at Discharge: Fair Discharge Disposition: SNF DC/Xfer Discharge Facility Name: [facility] - DIAGNOSES Admission Diagnoses: 1) Pneumonitis 2) Pleural effusions 3) Respiratory failure with desaturation 4) COPD exacerbation 5) IDDM 6) HTN 7) Afib with RVR 8) Breast CA with metastases, on chemo 9) Memory impairment 10) Hx of CABG 11) Recent toe infection Discharge Diagnoses with Status of Each Condition: (1) Pneumonitis Blood cultures and sputum cultures were ordered; she made no sputum, and the blood cultures remained negative. She was started on empiric IV antibiotics using iv Levofloaxacin and later Vancomycin was added (due to MRSA (+) on nares swab). Her respiratory status improved daily. The CXR was repeated and eventually showed improvement of infiltrates and decreased effusions. The WBC increased, likley due to iv Solumedrol. She was discharged to complete a course of antibiotics with 2 more days of oral Levofloxacin plus probiotic. (2) Pleural effusion She was started on IV diuretics twice daily. She had negative fluid balance by day 7 of her admission. This also led to hypokalemia. Troponins were negative x3 and an Echo was done that showed preserved LVEF. The presumed etiology is that she stopped taking her Lasix 40 mg daily, 4 days before this admission because it was "uncomfortable to continue to need to urinate frequently". The IV diuretic was transitioned back to her same oral Lasix dose. (3) Hypokalemia, due to diuretics Potassium was replaced by IV and orally. (4) COPD exacerbation She carried a diagnosis of asthma but was only on rescue inhaler treatments prior to admission. Her respiratory status here improved slowly daily with lower supplemental O2 requirements, less breathlessness and the wheezing resolved on new nebulizers Xopenex, and Proformist and new Singulair. She was discharged with new prescriptions for inhalers: Advair and Spiriva. The rescue inhaler dose continues. She also required iv Solumedrol, and was discharged with a 5-day tapering schedule of oral Prednisone. (5) Acute hypoxemic respiratory failure This was felt to be multifactorial: from pleural effusions, pneumonia and a COPD exacerbation. Chest CT without contrast was done and showed: a 16 mm and unchanged small ill-defined nodule. Significant interval improvement in previous seen cavitary opacity in the right apex with interval decrease in size of cavitation. Ill-defined parenchyma/air space opacities in the right upper lobe are slightly increased since prior. Increased groundglass opacities in the left lower lobe not likely to be neoplastic. Increased small bilateral pleural effusions. There are subacute and chronic bilateral rib fractures. These may be pathological, but Letrozole induced fractures cannot be excluded. Ibrance may cause interstitial lung disease with pneumonitis-noninfectious. Her D-dimer was elevated at and a VQ scan was done and showed no ventilation/perfusion mismatches, indicating a low probability for acute pulmonary embolism. Moderate central airway radiotracer deposition was reported, consistent with obstructive pulmonary physiology, on VQ scan. She did not require new home oxygen therapy at discharge. (6) IDDM She was started on a carb-controlled diet, insulin was continued and she required nutritional insulin dosing and sliding scale insulin coverage. As her steroid dose was decreased, the nutritional insulin was not necessary and stopped. At the time of discharge, her Januvia was restarted. (7) Hypertension Medications were adjusted to improve BP control. Her home dose of beta-lance was increased significantly and a higher dose was continued at discharge. (8) Chronic a-fib She needed an ICU stay, because of Afib with RVR, and was on IV Cardizem drip for a day, got Digoxin for 2 days, then transitioned to higher B-lance doses than at home, for heart rate control. She cannot be on an anticoagulant because of her history of subdural bleed after a fall. She remains on one baby aspirin daily. 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 He confirmed that her memory has been worsening over 6 to 12 months. Her short-term memory especially is very poor. She received 1 dose of morphine for dyspnea and 1 dose of oxycodone for arthritic pain which made her delirious the following day. Those prn medications were stopped. Plan will be to minimize meds that could cause sedation and confusion. (10) Anemia Her hemoglobin runs 10.3 - 11.4 with MCV of 101. Labs showed adequate B12 and Folate levels but low iron stores. She was started on iron replacement therapy orally and discharged with that new prescription. (11) Metastatic breast cancer She is on hormone tablet daily, the other chemotherapy medication was stopped in admission. She continues to see Dr. Joseph, Oncologist at the [facility] here. A new Palliative Care consult was started here and YAMILA Crawford met her and the family. There is documentation that the patient has no understanding of the cancer disease process and her prognosis. (12) Depression The Effexor dose was increased from daily to twice daily, after Palliative Care determined that she is depressed. At admission the Hospitalist had decreased her dose, possibly to decrease sedation. (13) Weakness and deconditioning Patient was weak before admission but has become severely deconditioned after her stay in the ICU and this hospitalization. She would nap in her chair. Physical therapy was only possible to start in the last 3 days of hos pitalization and she had very slow improvement. She qualified for PT rehab and is being discharged to [facility]. (14) Lower extremity cyanotic digits, bilateral Patient initially presented with cyanotic digits that resolved by Day 3. It did not appear to be a Charcot joint nor gouty arthropathy as it lacked warmth, and shiny appearance. She had a marginally elevated uric acid. ESR was marginally elevated to 57. JUDY was done which showed mild disease to the right and normal JUDY of the left. Bilateral arterial ultrasound showed no significant stenoses. (15) History of pulmonary embolism She is not on anticoagulation, has an IVC filter in place (16) Chronic pain due to spinal stenosis and DJD She was started on a Lidocaine patch during this admission and this continued with a prescription at discharge. She also remains on her calcium and vitamin D and Fosamax therapy as before hospitalization. (17) History of CABG She remained on aspirin and statin throughout the admission, the beta-lance dose was increased, her RAYNE inhibitor was resumed at discharge for blood pre ssure control. (18) Recent toe infection She had just completed treatment for this at [facility], when her current shortness of breath and respiratory failure began, leading to this admission. (19) Code status: DNR An Advanced Care Plan was done by the Hospitalist then visits by Palliative Care started. She has a new POLST documenting a DNR status and selective medical treatment now. - HPI History of Present Illness: This is a 83-year-old female with a complicated past medical history significant for stage IV metastatic breast carcinoma, Initially diagnosed in 2009 status post chemotherapy with active treatment with letrozole and immunotherapy (Ibrance) as of 11/04/18. Please refer to Dr. Joseph as note dated 10/07/2018 for more detailed summary and course of patient's breast carcinoma. 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 She also has a history of Immuno/chemo induced anemia, pancytopenia. 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 Heidi Joseph with last seen on 11/04/2018. She was sent from the [facility] clinic due to abnormalities in her labs with some weakness, shortness of breath and a suspected toe infection. She is also complaining of pleuritic type chest pain. Patient presented in RVR A. fib in the 130s and was given 1 dose of IV Lopressor in the ED, she was 84% O2 saturation on room air for which she corrected with a 2 L nasal cannula to 96%. Patient became hypotensive after getting 1 dose of 5 mg IV Lopressor. Her heart rate did improve to the 110s to 115's. On exam patient was with increased work of breath and ill-appearing noted to have RVR A. fib and with a creatinine of 2.1, BNP of 389, hemoglobin 11.4, chest x-ray showing small pleural effusions with cardiomegaly and right upper lobe opacity with lateral pleural thickening. Her troponin was 0.04 and a lactic acid was 1.6. Patient does have a history of chronic kidney disease for which her baseline ranges between 1.1-1.7. Her last echocardiogram was on 01/20 which shows mild LVH with an EF of 65%. Patient had a CT chest without contrast due to her creatinine ordered as well as a x-ray to her toe to rule out underlying osteomyelitis. - CONSULTS | PROCEDURES Consultations: None Procedures: None - HOSPITAL COURSE Hospital Course: See above - ALLERGIES Allergies/Adverse Reactions: Allergies Allergy/AdvReac Type Severity Reaction Status Date / Time Sulfa (Sulfonamide Allergy Severe Hives Verified 11/18/18 14:16 Antibiotics) adhesive Allergy Mild Rash Verified 11/18/18 14:16 Penicillins Allergy Hives Verified 11/18/18 15:00 - MEDICATIONS Home Medications: Ambulatory Orders Medication Instructions Recorded Confirmed Allopurinol [Zyloprim] 150 mg PO DAILY 11/16/12 11/18/18 Potassium Chloride [K-Tab ER] 10 meq PO BID 11/16/12 11/18/18 Furosemide 40 mg PO DAILY 10/17/16 11/18/18 Insulin Glargine [Lantus] 15 units SUBQ QPM 10/17/16 11/18/18 Lisinopril [Zestril] 5 mg PO DAILY 10/17/16 11/18/18 Pantoprazole Sodium 40 mg PO QDAC 10/17/16 11/18/18 Pravastatin [Pravachol] 40 mg PO QPM 10/18/16 11/18/18 Alendronate [Fosamax] 70 mg PO Q7D 05/12/18 11/18/18 Aspirin [Adult Aspirin Regimen] 81 mg PO DAILY 05/18/18 11/18/18 Calcium Carbonate/Vitamin D3 2 tab PO DAILY 05/18/18 11/18/18 [Calcium 600-Vit D3 800 Tablet] Multivitamin/Iron/Folic Acid 1 tab PO DAILY 05/18/18 11/18/18 [Centrum Adults Tablet] Sitagliptin Phosphate [Januvia] 50 mg PO DAILY 05/25/18 11/18/18 Letrozole 2.5 mg PO DAILY 09/02/18 11/18/18 Albuterol Sulfate [Proair Hfa 2 puffs INH Q6H PRN 11/18/18 11/18/18 Inhaler] Venlafaxine HCl 37.5 mg PO BID 11/18/18 11/18/18 Acetaminophen [Tylenol Extra 500 mg PO BID #60 tablet 11/27/18 Strength] Ferrous Sulfate 325 mg PO DAILY #30 tablet 11/27/18 Fluticasone/Salmeterol [Advair 1 each IH BID #1 blst.w.dev 11/27/18 250-50 Diskus] Insulin Aspart [NovoLOG] 3 - 11 unit SUBQ 11/27/18 0800,1200,1700,2100 #2 pen Lactobacillus Rhamnosus GG 1 cap PO DAILY #2 capsule 11/27/18 [Culturelle] Lidocaine Patch 5% [Lidoderm Patch] 1 patch TOP DAILY #30 patch 11/27/18 Metoprolol Succinate [Toprol Xl] 25 mg PO UD #90 tab.er.24h 11/27/18 Montelukast [Singulair] 10 mg PO QPM #30 tablet 11/27/18 Prednisone 5 mg PO DAILY #7 tablet 11/27/18 Tiotropium [place] [Spiriva] 1 puffs INH DAILY 30 Days #30 each 11/27/18 levoFLOXacin [Levaquin] 500 mg PO DAILY #4 tablet 11/27/18 - PHYSICAL EXAM AT DISCHARGE General Appearance: positive: No acute distress, Lethargic Eyes Bilateral: positive: EOMI, Conjunctivae nml ENT: positive: ENT inspection nml Neck: positive: Nml inspection Respiratory: positive: No respiratory distress, Other (Increased AP diameter, diminished breath sounds at both bases) Cardiovascular: positive: No murmur, Other (Irreg irreg) Abdomen: positive: Non-tender, Other (Obese with pannus) Skin: positive: Color nml, No rash Neurologic/Psychiatric: positive: Weakness, Other (Poor memory) - LABS Result Diagrams: 11/27/18 04:45 11/27/18 04:45 - DIAGNOSTIC IMAGING Diagnostic Imaging Results: Final report reviewed - SEPSIS Current Stage of Sepsis: Ruled out - FOLLOW UP Follow Up: See PCP after discharge from SNF - TIME SPENT Time Spent in Discharge (Minutes): 60
[2018-11-27 14:12] VITALS: BP 167/81
== END 2018-11-27 16:50 | DRG 193 ==
LOC: ED 14:54 → ICU 16:49 → MS2 11-24 20:23
PROVIDERS: ADMIT Family Medicine; ATTEND Internal Medicine
DX: I48.91 Unspecified atrial fibrillation (principal); J90 Pleural effusion, not elsewhere classified; R09.02 Hypoxemia; J18.9 Pneumonia, unspecified organism; J96.01 Acute respiratory failure with hypoxia; J44.0 Chronic obstructive pulmonary disease with (acute) lower respiratory infection; N17.9 Acute kidney failure, unspecified; C78.00 Secondary malignant neoplasm of unspecified lung; N18.9 Chronic kidney disease, unspecified; I13.0 Hypertensive heart and chronic kidney disease with heart failure and stage 1 through stage 4 chronic kidney disease, or unspecified chronic kidney disease; I50.30 Unspecified diastolic (congestive) heart failure; L08.9 Local infection of the skin and subcutaneous tissue, unspecified; J44.1 Chronic obstructive pulmonary disease with (acute) exacerbation; C50.912 Malignant neoplasm of unspecified site of left female breast; C78.01 Secondary malignant neoplasm of right lung; C79.81 Secondary malignant neoplasm of breast; I48.92 Unspecified atrial flutter; J45.909 Unspecified asthma, uncomplicated; I47.1 Supraventricular tachycardia; I48.2 Chronic atrial fibrillation; T50.1X6A Underdosing of loop [high-ceiling] diuretics, initial encounter; R06.02 Shortness of breath; R10.10 Upper abdominal pain, unspecified; R53.1 Weakness; R53.83 Other fatigue; R60.9 Edema, unspecified; R79.89 Other specified abnormal findings of blood chemistry; Z91.128 Patient's intentional underdosing of medication regimen for other reason; E87.6 Hypokalemia; Z95.5 Presence of coronary angioplasty implant and graft; R41.0 Disorientation, unspecified; R40.0 Somnolence; T40.2X5A Adverse effect of other opioids, initial encounter; T50.1X5A Adverse effect of loop [high-ceiling] diuretics, initial encounter; Y92.230 Patient room in hospital as the place of occurrence of the external cause; I69.811 Memory deficit following other cerebrovascular disease; E11.22 Type 2 diabetes mellitus with diabetic chronic kidney disease; N18.3 Chronic kidney disease, stage 3 (moderate); E11.621 Type 2 diabetes mellitus with foot ulcer; L97.521 Non-pressure chronic ulcer of other part of left foot limited to breakdown of skin; L97.511 Non-pressure chronic ulcer of other part of right foot limited to breakdown of skin; D50.9 Iron deficiency anemia, unspecified; F32.9 Major depressive disorder, single episode, unspecified; R23.0 Cyanosis; I95.2 Hypotension due to drugs; T44.7X5A Adverse effect of beta-adrenoreceptor antagonists, initial encounter; Y92.238 Other place in hospital as the place of occurrence of the external cause; E11.40 Type 2 diabetes mellitus with diabetic neuropathy, unspecified; E11.319 Type 2 diabetes mellitus with unspecified diabetic retinopathy without macular edema; E11.65 Type 2 diabetes mellitus with hyperglycemia; T38.0X5A Adverse effect of glucocorticoids and synthetic analogues, initial encounter; C50.919 Malignant neoplasm of unspecified site of unspecified female breast; G89.29 Other chronic pain; M25.551 Pain in right hip; M19.072 Primary osteoarthritis, left ankle and foot; M48.00 Spinal stenosis, site unspecified; M10.9 Gout, unspecified; E78.5 Hyperlipidemia, unspecified; E66.01 Morbid (severe) obesity due to excess calories; I25.10 Atherosclerotic heart disease of native coronary artery without angina pectoris; F41.9 Anxiety disorder, unspecified; S22.43XD Multiple fractures of ribs, bilateral, subsequent encounter for fracture with routine healing; T82.594D Other mechanical complication of infusion catheter, subsequent encounter; Z66 Do not resuscitate; Z51.5 Encounter for palliative care; Z79.4 Long term (current) use of insulin; Z86.718 Personal history of other venous thrombosis and embolism; Z79.891 Long term (current) use of opiate analgesic; Z79.899 Other long term (current) drug therapy; Z95.1 Presence of aortocoronary bypass graft; Z79.811 Long term (current) use of aromatase inhibitors; Z91.81 History of falling; Z79.82 Long term (current) use of aspirin; Z86.711 Personal history of pulmonary embolism; Z95.828 Presence of other vascular implants and grafts; Z86.2 Personal history of diseases of the blood and blood-forming organs and certain disorders involving the immune mechanism; Z22.322 Carrier or suspected carrier of Methicillin resistant Staphylococcus aureus; Z68.35 Body mass index [BMI] 35.0-35.9, adult; Z87.898 Personal history of other specified conditions; Z99.3 Dependence on wheelchair; Z87.2 Personal history of diseases of the skin and subcutaneous tissue
CPT/HCPCS: 36415; 71045; 71250; 73660; 78582; 80048; 80053; 80162; 81599; 82274; 82330; 82607; 82746; 83540; 83605; 83690; 83735; 83880; 84100; 84443; 84466; 84484; 84550; 85025; 85379; 85651; 86300; 87040; 87150; 93005; 93306; 93922; 93925; 94640; 94761; 96374; 97161; 97164; 97530; 99214; 99222; 99233; 99284; 99285; A6250; A9270; G0463; J0153; J1650; J1815; J2270; J2916; J3370; J7512; J7626; 82803; 83036; 87070; 87205; 99211; 99283

== ENCOUNTER 2018-12-07 18:30 | Outpatient (CLI) | payer MEDICARE, OTHER | END 2018-12-07 18:31 | disposition critical access hospital (66) | LOC: EMS 18:30 | PROVIDERS: ATTEND Surgery | DX: R06.02 Shortness of breath (principal); R60.9 Edema, unspecified ==

== ENCOUNTER 2018-12-07 18:35 | Emergency (ER) | payer MEDICARE, OTHER ==
[2018-12-07] MEDS ORDERED: IPRATROPIUM/ALBUTEROL 3 ML NEB INH STA (18:54)
--- NOTE | 2018-12-07 19:34 | XRAY Report ---
Reason: shortness of breath Procedure Date: 12/07/2018 Accession Number: [id number] / [id number] Procedure: XR - Chest 1 View X-Ray CPT Code: 83692 FULL RESULT: EXAM: CHEST RADIOGRAPHY EXAM DATE: 12/07/2018 07:16 PM. CLINICAL HISTORY: Shortness of breath. COMPARISON: CHEST 1 VIEW 11/26/2018 12:59 PM. TECHNIQUE: 1 view. FINDINGS: Lungs/Pleura: There is patchy airspace disease in the right upper lobe. There is left basilar airspace disease with a possibly elevated left diaphragm. The lungs appear without significant change. There is no pneumothorax. Mediastinum: Heart size is normal. There is moderate calcification of the thoracic aorta. There is a left-sided Port-A-Cath with tip overlying the low SVC. Other: None. IMPRESSION: No change. Bilateral airspace disease. RADIA
[2018-12-07] MEDS ORDERED: diltiaZEM INJ 5 MG/ML VIAL IVP STA ×3 (19:46→22:44)
--- NOTE | 2018-12-07 19:46 | ED Physician Documentation ---
PD HPI DYSPNEA - Stated complaint Stated Complaint: DYSPNEA - Chief complaint Chief Complaint: Cardiac - History obtained from History obtained from: Patient, EMS - History of Present Illness Timing - onset: How many days ago (2) Timing - onset during: Rest Timing - duration: Days (2) Timing - details: Gradual onset Pain level max: 0 Pain level now: 0 Improved by: O2 (uses home O2. lives [place] [facility]. Recently here for pneumonia) Worsened by: Coughing Associated symptoms: Cough, Wheezing. No: Fever, Hemoptysis, Chest pain / discomfort Similar symptoms before: Diagnosis (recent pneumonia vs pneumonitis) Recently seen: Admitted Review of Systems Ten Systems: 10 systems reviewed and negative Constitutional: denies: Fever GI: denies: Vomiting, Diarrhea : denies: Dysuria Skin: denies: Rash Neurologic: denies: Focal weakness, Numbness PD PAST MEDICAL HISTORY - Past Medical History Cardiovascular: Hypertension, High cholesterol, Deep vein thrombosis, Pulmonary embolism, Atrial fibrillation Respiratory: Asthma, COPD, Pneumonia, Shortness of breath Neuro: None Endocrine/Autoimmune: Type 2 diabetes GI: None WOOL GROWER: Breast cancer : None HEENT: None Psych: Depression, Anxiety (patient has long had difficulty with anxiety) Musculoskeletal: Osteoarthritis, Gout, Fatigue, Chronic back pain Derm: Other (multiple foot injuries) - Past Surgical History Past Surgical History: Yes Ortho: Knee replacement /WOOL GROWER: 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 Cardiovascular: CABG, Coronary stent, Other (portacath plascemtn) - Present Medications Home Medications: Ambulatory Orders Medication Instructions Recorded Confirmed Allopurinol [Zyloprim] 150 mg PO DAILY 11/16/12 11/18/18 Potassium Chloride [K-Tab ER] 10 meq PO BID 11/16/12 11/18/18 Furosemide 40 mg PO DAILY 10/17/16 11/18/18 Insulin Glargine [Lantus] 15 units SUBQ QPM 10/17/16 11/18/18 Lisinopril [Zestril] 5 mg PO DAILY 10/17/16 11/18/18 Pantoprazole Sodium 40 mg PO QDAC 10/17/16 11/18/18 Pravastatin [Pravachol] 40 mg PO QPM 10/18/16 11/18/18 Alendronate [Fosamax] 70 mg PO Q7D 05/12/18 11/18/18 Aspirin [Adult Aspirin Regimen] 81 mg PO DAILY 05/18/18 11/18/18 Calcium Carbonate/Vitamin D3 2 tab PO DAILY 05/18/18 11/18/18 [Calcium 600-Vit D3 800 Tablet] Multivitamin/Iron/Folic Acid 1 tab PO DAILY 05/18/18 11/18/18 [Centrum Adults Tablet] Sitagliptin Phosphate [Januvia] 50 mg PO DAILY 05/25/18 11/18/18 Letrozole 2.5 mg PO DAILY 09/02/18 11/18/18 Albuterol Sulfate [Proair Hfa 2 puffs INH Q6H PRN 11/18/18 11/18/18 Inhaler] Venlafaxine HCl 37.5 mg PO BID 11/18/18 11/18/18 Acetaminophen [Tylenol Extra 500 mg PO BID #60 tablet 11/27/18 Strength] Ferrous Sulfate 325 mg PO DAILY #30 tablet 11/27/18 Fluticasone/Salmeterol [Advair 1 each IH BID #1 blst.w.dev 11/27/18 250-50 Diskus] Insulin Aspart [NovoLOG] 3 - 11 unit SUBQ 11/27/18 0800,1200,1700,2100 #2 pen Lactobacillus Rhamnosus GG 1 cap PO DAILY #2 capsule 11/27/18 [Culturelle] Lidocaine Patch 5% [Lidoderm Patch] 1 patch TOP DAILY #30 patch 11/27/18 Metoprolol Succinate [Toprol Xl] 25 mg PO UD #90 tab.er.24h 11/27/18 Montelukast [Singulair] 10 mg PO QPM #30 tablet 11/27/18 Prednisone 5 mg PO DAILY #7 tablet 11/27/18 Tiotropium [place] [Spiriva] 1 puffs INH DAILY 30 Days #30 each 11/27/18 levoFLOXacin [Levaquin] 500 mg PO DAILY #4 tablet 11/27/18 Digoxin 125 mcg PO DAILY #7 tablet 12/07/18 Levofloxacin [Levaquin] 500 mg PO DAILY #10 tablet 12/07/18 - Allergies Allergies/Adverse Reactions: Allergies Allergy/AdvReac Type Severity Reaction Status Date / Time Sulfa (Sulfonamide Allergy Severe Hives Verified 11/18/18 14:16 Antibiotics) adhesive Allergy Mild Rash Verified 11/18/18 14:16 Penicillins Allergy Hives Verified 11/18/18 15:00 - Social History Does the pt smoke?: No Smoking Status: Never smoker Does the pt drink ETOH?: Yes Does the pt have substance abuse?: No - Immunizations Immunizations are current?: Yes - POLST Patient has POLST: Yes PD ED PE NORMAL - Vitals Vital signs reviewed: Yes - General General: Alert and oriented X 3, No acute distress, Well developed/nourished - HEENT HEENT: PERRL, Ears normal, Moist mucous membranes, Pharynx benign - Neck Neck: Supple, no meningeal sign - Cardiac Cardiac: Other (Irregularly irregular) - Respiratory Respiratory: No respiratory distress, Other (Wheezing) - Abdomen Abdomen: Soft, Non tender, Non distended - Derm Derm: Warm and dry - Extremities Extremities: No calf tenderness / cord - Neuro Neuro: Alert and oriented X 3 - Psych Psych: Normal mood, Normal affect Results - Vitals Vitals: Oxygen O2 Source [With Activity] Room air O2 Source [Without Activity] Room air O2 Source Nasal cannula - EKG (time done) 1840 Rate: Rate (enter#) (128) Rhythm: Atrial flutter, Atrial fibrillation [place]: Normal QRS: Normal Ischemia: Non specific changes - Labs Labs: Laboratory Tests 12/07/18 12/07/18 12/07/18 19:40 19:40 19:40 WBC 22.4 H RBC 3.20 L Hgb 10.6 L Hct 31.8 L MCV 99.4 H MCH 33.1 H MCHC 33.3 RDW 18.0 H Plt Count 218 MPV 11.8 H Neut # (Auto) Not Reportable Lymph # (Auto) Not Reportable [place] # (Auto) Not Reportable Eos # (Auto) Not Reportable Baso # (Auto) Not Reportable Absolute Nucleated RBC Not Reportable Total Counted 100 Band Neuts % (Manual) 2 Abnorm Lymph % (Manual) 0 Nucleated RBC % Not Reportable Neutrophils # (Manual) 17.5 H Lymphocytes # (Manual) 2.0 Monocytes # (Manual) 2.2 H Eosinophils # (Manual) 0.7 Basophils # (Manual) 0.0 Differential Comment MANUAL DIFFERENTIAL Manual Slide Review Indicated Platelet Estimate NORMAL (130-450,000) Platelet Morphology NORMAL APPEARANCE RBC Morph Micro Appear 2+ POIKILOCYTOSIS Sodium 139 Potassium 4.9 Chloride 101 Carbon Dioxide 27 Anion Gap 11.0 BUN 46 H Creatinine 1.2 H Estimated GFR (MDRD) 43 L Glucose 171 H Lactic Acid Calcium 9.6 Total Bilirubin 0.7 AST 29 ALT 27 Alkaline Phosphatase 71 Troponin I 0.04 B-Natriuretic Peptide Total Protein 5.4 L Albumin 2.2 L Globulin 3.2 Albumin/Globulin Ratio 0.7 L Lipase 26 Digoxin 12/07/18 12/07/18 12/07/18 19:40 19:40 19:40 WBC RBC Hgb Hct MCV MCH MCHC RDW Plt Count MPV Neut # (Auto) Lymph # (Auto) [place] # (Auto) Eos # (Auto) Baso # (Auto) Absolute Nucleated RBC Total Counted Band Neuts % (Manual) Abnorm Lymph % (Manual) Nucleated RBC % Neutrophils # (Manual) Lymphocytes # (Manual) Monocytes # (Manual) Eosinophils # (Manual) Basophils # (Manual) Differential Comment Manual Slide Review Platelet Estimate Platelet Morphology RBC Morph Micro Appear Sodium Potassium Chloride Carbon Dioxide Anion Gap BUN Creatinine Estimated GFR (MDRD) Glucose Lactic Acid 1.4 Calcium Total Bilirubin AST ALT Alkaline Phosphatase Troponin I B-Natriuretic Peptide 314 H Total Protein Albumin Globulin Albumin/Globulin Ratio Lipase Digoxin < 0.2 - Rads (name of study) cxr Radiology: Prelim report reviewed, EMP read contemporaneously, See rad report (No change, bilateral airspace disease) PD MEDICAL DECISION MAKING - ED course Complexity details: reviewed old records, reviewed results, re-evaluated patient, considered differential, d/w patient, d/w sr solutions consultant ED course: 83-year-old female recently admitted for pneumonia. She is well-appearing, nontoxic. Will restart on antibiotics. She does not have any increased oxygen requirements. Her heart rate is controlled after restarting digoxin and giving diltiazem. She is not on digoxin currently at [facility] for unclear reasons, reloaded here and will restart. Discussed with the hospitalist regarding restarting the digoxin and it sounds like that was the plan when she was discharged. No acute need for inpatient admission. Given IV antibiotics here. Patient counseled regarding signs and symptoms for which I believe and urgent re-evaluation would be necessary. Patient with good understanding of and agreement to plan and is comfortable going home at this time This document was made in part using voice recognition software. While efforts are made to proofread this document, sound alike and grammatical errors may occur. Her white blood cell count is actually improved from prior and is likely elevated secondary to recent steroid use Departure - Departure Disposition: 01 Home, Self Care Clinical Impression: Atrial fibrillation with rapid ventricular response Pneumonia Qualifiers: Pneumonia type: due to unspecified organism Laterality: right Lung location: upper lobe of lung Qualified Code(s): J18.1 - Lobar pneumonia, unspecified organism Condition: Good Instructions: ED Pneumonia Adult Follow-Up: your,doctor in 3 days [Other] Prescriptions: Digoxin 125 mcg PO DAILY #7 tablet Levofloxacin [Levaquin] 500 mg PO DAILY #10 tablet Comments: Continue the Lasix that you are currently on. We are going to add digoxin and Levaquin back to your medications. You should follow-up with your doctor within 3 days for further care. Return if you worsen Discharge Date/Time: 12/07/18 23:31
[2018-12-07 19:50] LABS: BASOPHILS % (AUTO) 0.3 %; EOSINOPHILS % (AUTO) 3.2 %; HGB - HEMOGLOBIN 10.6 g/dL (12.0-16.0); LYMPHOCYTES % (AUTO) 4.5 %; MEAN CORPUSCULAR HEMOGLOBIN 33.1 pg (27.0-31.0); MEAN CORPUSCULAR HGB CONC 33.3 g/dL (32.0-36.0); MEAN CORPUSCULAR VOLUME 99.4 fL (81.0-99.0); MEAN PLATELET VOLUME 11.8 fL (7.9-10.8); MONOCYTES % (AUTO) 8.8 %; NEUTROPHILS % (AUTO) 80.4 %; PLT - PLATELET COUNT 218 10^3/uL (130-450); WHITE BLOOD COUNT 22.4 x10^3/uL (4.8-10.8)
[2018-12-07 19:53] LABS: ABNORMAL LYMPHS % (MANUAL) 0 %
[2018-12-07 20:02] LABS: ALBUMIN 2.2 g/dL (3.2-5.5); ALBUMIN/GLOBULIN RATIO 0.7 (1.0-2.2); BILIRUBIN,TOTAL 0.7 mg/dL (0.2-1.0); CALCIUM 9.6 mg/dL (8.5-10.3); CREATININE 1.2 mg/dL (0.4-1.0); TOTAL PROTEIN 5.4 g/dL (6.7-8.2)
[2018-12-07 20:11] LABS: BAND NEUTROPHILS % (MANUAL) 2 %; DIFFERENTIAL COMMENT MANUAL DIFFERENTIAL; EOSINOPHILS # (MANUAL) 0.7 10^3/uL (0-0.7); LYMPHOCYTES % (MANUAL) 9 %; MONOCYTES # (MANUAL) 2.2 10^3/uL (0.0-1.0); NEUTROPHILS # (MANUAL) 17.5 10^3/uL (1.5-6.6); NEUTROPHILS % (MANUAL) 76 %; PLATELET ESTIMATE, MANUAL NORMAL (130-450,000) (NORMAL); PLATELET MORPHOLOGY NORMAL APPEARANCE (NORMAL)
[2018-12-07 20:16] LABS: DIGOXIN < 0.2 ng/mL
[2018-12-07] MEDS ORDERED: levoFLOXacin 750 MG/150 ML 750 MG/150 ML BAG IV ONE (20:45)
[2018-12-07] MEDS ORDERED: FUROSEMIDE 40 MG/4 ML VIAL IVP STA (20:45)
[2018-12-07] MEDS ORDERED: DIGOXIN 500 MCG/2 ML AMP IVP STA (20:45)
[2018-12-07 23:31] VITALS: BP 109/57
== END 2018-12-07 23:31 | disposition home or self-care (01) ==
LOC: EDUNIT# → ED 18:35
DX: J18.1 Lobar pneumonia, unspecified organism (principal); I48.91 Unspecified atrial fibrillation; Z99.81 Dependence on supplemental oxygen; I10 Essential (primary) hypertension; E11.9 Type 2 diabetes mellitus without complications; Z79.4 Long term (current) use of insulin
CPT/HCPCS: 71045; 80053; 80162; 83605; 83690; 83880; 84484; 85025; 93005; 94640; 96374; 96375; 96376; 99284

== ENCOUNTER 2018-12-07 23:24 | Outpatient (CLI) | payer MEDICARE, OTHER | END 2018-12-07 23:25 | LOC: EMS 23:24 | PROVIDERS: ATTEND Surgery | DX: R06.02 Shortness of breath (principal); R60.9 Edema, unspecified | CPT/HCPCS: A0425; A0428; A0429 ==

== ENCOUNTER 2018-12-09 17:45 | Outpatient (CLI) | payer MEDICARE, OTHER ==
--- NOTE | 2018-12-09 18:08 | CONSULTATION NOTE ---
Palliative Care Follow Up - Referral Referring Provider: Dr. Matthew Logan Time of Visit: [id number] Referral setting: [facility] Referral Reason: Depression/Anxiety/Met breast Cancer with lung mets - Information Sources Records reviewed: Previous records reviewed History/Review of Systems obtained from: Patient, Family ( Ish & daughter Jacqueline present), Caregiver (team meeting with ST/PT/CATTLE TRADER/RN insole department worker) Exam limitations: Clinical condition (patient with STM issues) - History of Present Illness Update Brief HPI Update: This is an 83-year-old woman with known stage IV breast cancer with mets to the lung. She was recently hospitalized at [facility] 11/18 to 11/27 for pneumonitis/pneumonia/COPD exacerbation/acute hypoxic respiratory failure/Atrial fib with rapid ventricular response, and toe infection. Patient slowly recovered, but still had severe deconditioning, severe dyspnea, and continued on antibiotics. It remains somewhat of a myster as far as under allergy regarding her acute hypoxic respiratory failure associated with pneumonitis, She was treated with steroids and antibiotics, with gradual improvement. Unfortunately she had escalating shortness of breath, with respiratory distress, and had an ED visit on 12/07. And presented with atrial fib with rapid ventricular response again, was loaded with digoxin, as well as restarted on Levaquin with a diagnosis of right upper lobe pneumonia. Patient was not on her baseline diuretics on discharge from hospital last time, patient has had a 6 to 8 pound weight gain, was restarted on furosemide on 12/08, she does present with symptoms of fluid overload. She remains quite frail and compromised, the goal is for diuresis, treatment of her atrial fib with RVR with addition of digoxin, And pre-treatment with levaquin for presumed pneumonia, she did present with elevated WBC of 22.5. Patient is quite complex, it has been difficult and transitioning to the SNF, she presents with high symptom burden, and family appropriately concerned regarding the coordination of care and her frail status. Palliative care to establish support for pain and symptom management and coordination of care, including transitions identified based on goals of care. Patient's past medical history includes stage IV metastatic breast cancer, initially diagnosed in 2008 status post chemotherapy most recently with letrozole and immunotherapy Ibrance on 11/04/2018. 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 Social History - Living Situation Living arrangement: At home Living Situation: With spouse/s.o., With family Support System: Patient lives at home with her , has been does work 4 days a week. They had not been providing her any kind of personal care, her son Reilly lives with them as well. She was supportive as far as helping her around the house, patient her wheelchair she needed, helping with meal prep. In discussions p reviously, patient aware if continued higher level of assistance needed may need to hire some assistance in the home. Medications/Allergies - Medications Home Medications: Ambulatory Orders Medication Instructions Recorded Confirmed Potassium Chloride [K-Tab ER] 20 meq PO BID 11/16/12 12/10/18 Furosemide 40 mg PO DAILY 10/17/16 12/10/18 Insulin Glargine [Lantus] 15 units SUBQ QPM 10/17/16 12/10/18 Pantoprazole Sodium 40 mg PO QDAC 10/17/16 12/10/18 Pravastatin [Pravachol] 40 mg PO QPM 10/18/16 12/10/18 Alendronate [Fosamax] 70 mg PO Q7D 05/12/18 12/10/18 Aspirin [Adult Aspirin Regimen] 81 mg PO DAILY 05/18/18 12/10/18 Calcium Carbonate/Vitamin D3 2 tab PO DAILY 05/18/18 12/10/18 [Calcium 600-Vit D3 800 Tablet] Letrozole 2.5 mg PO DAILY 09/02/18 12/10/18 Albuterol Sulfate [Proair Hfa 2 puffs INH Q6H PRN 11/18/18 12/10/18 Inhaler] Venlafaxine HCl 37.5 mg PO BID 11/18/18 12/10/18 Ferrous Sulfate 325 mg PO DAILY #30 tablet 11/27/18 12/10/18 Insulin Aspart [NovoLOG] 3 - 11 unit SUBQ 11/27/18 12/10/18 0800,1200,1700,2100 #2 pen Lactobacillus Rhamnosus GG 1 cap PO DAILY #2 capsule 11/27/18 12/10/18 [Culturelle] Lidocaine Patch 5% [Lidoderm Patch] 1 patch TOP DAILY #30 patch 11/27/18 12/10/18 Montelukast [Singulair] 10 mg PO QPM #30 tablet 11/27/18 12/10/18 Tiotropium [place] [Spiriva] 1 puffs INH DAILY 30 Days #30 each 11/27/18 12/10/18 Digoxin 125 mcg PO DAILY #7 tablet 12/07/18 12/10/18 Levofloxacin [Levaquin] 500 mg PO DAILY #10 tablet MDD 12/1812/07/18 12/10/18 Acetaminophen 500 mg PO BID MDD 3000 12/10/18 12/10/18 Acetaminophen [Tylenol Extra 500 mg PO Q6HR PRN 12/10/18 12/10/18 Strength] Cholecalciferol (Vitamin D3) 1,000 unit PO DAILY 12/10/18 12/10/18 [Vitamin D3] Fluticasone/Salmeterol [Advair 1 puffs INH BID 12/10/18 12/10/18 100-50 Diskus] Meloxicam 15 mg PO DAILY 12/10/18 12/10/18 Metoprolol Succinate [Toprol Xl] 25 mg PO BID 12/10/18 12/10/18 oxyCODONE [Roxicodone] 5 mg PO Q4HR PRN 12/10/18 12/10/18 traZODone [Desyrel] 25 mg PO ACHS 12/10/18 12/10/18 - Allergies Allergies/Adverse Reactions: Allergies Allergy/AdvReac Type Severity Reaction Status Date / Time Sulfa (Sulfonamide Allergy Severe Hives Verified 11/18/18 14:16 Antibiotics) adhesive Allergy Mild Rash Verified 11/18/18 14:16 Penicillins Allergy Hives Verified 11/18/18 15:00 Review of Systems - Constitutional Constitutional: reports: Fatigue, Weight gain (Patient with 5 pound fluid gain over week). denies: Fever, Chills - Eyes Eyes: reports: Vision loss - Ears, Nose & Throat Ears, Nose & Throat: reports: Hearing loss (mild) - Cardiovascular Cardiovascular: reports: Irregular heart rate, Edema (worsening over last few days), Exertional dyspnea, Decr. exercise tolerance, Orthopnea. denies: Chest pain - Respiratory Respiratory: reports: SOB at rest (improved since ED visit), SOB with exertion, Pleuritic pain - Gastrointestinal Gastrointestinal: reports: Bloating, Early satiety. denies: Nausea, Reflux/he artburn - Genitourinary Genitourinary: reports: Incontinence - Musculoskeletal Musculoskeletal: reports: Back pain, Stiffness, Muscle weakness, Joint pain, Assistive devices (uses walker for short distances), Transfer issues (fearful of falling; difficult for staff if patient anxious) - Integumentary Integumentary: reports: Pruritis, Dryness, Other (reported coccyx pressure; on air mattress but in w/c most of day) - Neurological Neurological: reports: General weakness, Memory problems (poor retention of information; intermittent confusion) - Psychiatric Psychiatric: reports: Depression, Anxiety - Endocrine Endocrine: reports: Diabetes type 2 - Hematologic/Lymphatic Hematologic/Lymphatic: reports: Anemia (10.6), Recurrent infections (restarted on levaquin for 10 days from ED; WBC 22.5) - All Other Systems All Other Systems: reports: Other (patient with difficult STM; ROS limited) Physical Exam - Vital Signs Temperature: 96.8 C Pulse Rate: 56 (irregular) Respiratory Rate: 20 O2 Saturation: 97 (2 liters) - Physical Exam General Appearance: positive: Mild distress, Anxious Eyes Bilateral: positive: Normal inspection ENT: negative: Oral lesions Neck: positive: No JVD, Trachea midline Cardiovascular: positive: Irregular Respiratory: positive: Diminished in bases, Rales (RLL crackles). negative: Wheezes Abdomen: positive: Non-tender, Nml bowel sounds, Distended, Obese Skin: positive: Dryness, Other (left foot with scabbed closed sore on "bunioin" 2nd and 3rd toe with dark eschar; foot dull red/purple to mid foot; no acute s/s infection; cool to touch; feet dangling) Extremities: positive: Pedal edema (bilateral leg edema; pitting to knees 1-2 +;), Other (lymphadema left arm in increase in severity with fluid retention; right arm/hand new with edema;) Neurologic/Psychiatric: positive: Disoriented to time, Weakness, Other (anxious) Palliative Care - POLST Patient has POLST: Yes POLST Status: DNR, Selective Treatment (patient did not come with POLST from hospital; COW POLST not reflective of original conversations regarding goals of care; Redone at visit) Pain: Pain unchanged, Location (multiple joints; rib/abdominal area;) Tiredness/Fatigue: Severe (7-10) Drowsiness/Sedation: Mild (1-3) Nausea: None Depression: Moderate (4-6) Anxiety: Severe (7-10) Dyspnea: Moderate (4-6) Anorexia: Mild (1-3) Sleep: Variable sleep pattern (difficult night last night; getting days/nights switched; does not recall confusion) Constipation: Intermittent constipation Performance Status: Previous level of functioning prior to original hospital admit, was declining. Patient was mostly wheelchair-bound, was able to do independent transfers though. Patient had been able to manage her own toileting, but was struggling as her weakness progressed. Patient was also having some cognitive decline, sleeping more in the day, increased difficulty searching for words, and memory.Patient is working with rehab at SNF, appears to be multiple barriers given patient's underlying comorbidities, anxiety, and deconditioning. Goals would be for patient to need minimal assist for toileting, able to ambulate at least short distances, and transfer independently. Patient's acute on chronic health problems are interfering with her progress, though everyone in his agreement she is moving forward. - Palliative Care Discussion: Patient's underlying serious illness of stage IV breast cancer with lung mets is being somewhat upstaged by her ongoing issues with her pneumonia/pneumonitis, cardiac issues with atrial fib, and recent hospitalization and ED visit. Patient remains quite frail, and at high risk for continued decline. Patient does have some insight to the current seriousness of her illness, but her anxiety short-term memory issues to make it difficult for her to process and engage in goals setting. Patient's POLST, got "lost in the shuffle", redone PO LST does not reflect previous goals established. Counseling provided and revisited goals of care with patient, , and daughter Jacqueline. POLST was established as DNA R/DN I and selective treatments. Patient would continue to return to the hospital, this is where she "feels safe". She would continue to choose treatment to treat reversible conditions, but agreed "heroic measures" such as CPR and intubation, tube feedings were not consistent with her goals if this were to arise. 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 Did review with patient and family, Medicare regulations may interfere with this plan, but it is important we understand her fears and concerns. She very much wants to return home, she is missing her dogs, it is been frustrating for the family as far as the treatment plan and plan of care for medical support. Ita does present as alert and oriented, but is not really able to process the information and retain, nor is she likely giving accurate information, and she should have her or daughter involved in conversations regarding any medical information given, decisions made, this has been frustrating for them to try and get the medical team to understand. Results - Lab Results Lab results reviewed: Yes Lab and Imaging Results: Reviewed information from ED with family. Of note, medication list was not accurate in [facility] Impression and Recommendations - Palliative Care Impression: This is an 83-year-old woman with metastatic breast cancer to the lung, complicated cardiac status, with recent exacerbation of atrial fib with RVR, presenting with fluid overload, and recent acute ED visit with presumed pneumonia. Patient with moderate to high symptom burden, deconditioning and functional decline currently in SNF for rehab, and high risk for rehospitalization. Palliative care to provide support for symptom management, coordination of care, and anticipatory guidance. Recommendations/Counseling Done: 1. Depression. This is multifactorial in origin, complicated by her anxiety disorder. She is currently on Effexor 37.5 mg twice daily, but has been having difficulty sleeping. She is expressing appropriate feelings of grief and loss, attributed to loss of independence, anxiety regarding her ongoing health issues, and difficulty with adjusting to transition to SNF. Counseling regarding exploring ways to support her in her new environment, including bringing in her cross-stitch, having her dogs visit more regularly, consider calming music, other items that might be of support to her from home. Family very supportive, working with ways to distract and support her in this environment. 2. Metastatic stage IV breast cancer with lung mets. Patient currently with her other multiple comorbidities, not appropriate for ongoing treatment plan other than letrozole. She is currently without a established oncologist, follow-up with oncology clinic done regarding patient's current location in SNF, and need to make appointment. Will request any pending labs, be combined with her weekly labs at SNF. 3. Fluid retention. Patient did not get a BMP on her most recent trip to the ED, but does present with symptoms of fluid over load. With increased weight, fluid retention or lower extremity as well as upper. Patient is not been on her baseline furosemide, was restarted 12/08. Given patient's frailty and kidney function, we will continue to monitor if needs to increase or at least extend on baseline dosing. May need to revisit if patient should be discontinued off meloxicam given her underlying cardiac and kidney issues. 4. History of left toe infection. Patient continues with compromised skin/scabbing on left toe. Acutely not with signs or symptoms of infection currently, but cool to touch and dull pink. Will need to be continued to be monitored, patient also with history of gout and currently on her allopurinol. Would recommend uric acid with Friday labs. 5. Pneumonia. Patient remains compromised, most likely complicated by her fluid retention. Patient without fever or chills, is reporting improvement from original acute distress on 12/07. Patient will need continued close monitoring given her fragile status. She still remains at high risk for rehospitalization. 6. Advanced care planning. Patient continues to be challenged by her multiple health issues, her goal remains to return home, and spend time with her dogs and family. There was some confusion regarding POLST, this was really visited with goals reviewed with DNA R/DN I but continue treatment for reversible conditions and would accept a rehospitalization. Patient remains quite frail, with significant interplay between her multiple comorbidities, as well as transitions between care settings. 7. Atrial fib with RVR. Newly started on digoxin, dig level to be added to labs 7-10 days. Patient on the POROCK Index, that looks that population of halfway residents and outcome of 6 months mortality, patient does score 57. This puts her at an assisted risk of 6 months mortality of 89%. Risk calculators cannot predict the future for any one individual, but given estimate of how many people with similar risk factors will live and but cannot identify who will live and who will . Palliative care to provide ongoing support, regarding pain and symptom management, anticipatory guidance as well as assistance with coordination of care. Will follow up on Friday when MD/PA of SNF available to coordinate regarding recommendations around medications, additional labs, and coordination of care for goals of care. Given the complexity of her care, will see weekly and schedule with SNF scheduled visits. Time Spent: 60 minutes with greater than 50% of this done in counseling regarding goals of care, follow-up with care conference, and anticipatory guidance with patient and family. [facility]
== END 2018-12-09 17:46 | disposition home or self-care (01) ==
LOC: PC 17:45
PROVIDERS: ATTEND Nurse Practitioner Adult Health
DX: Z51.5 Encounter for palliative care (principal); F41.8 Other specified anxiety disorders; C50.919 Malignant neoplasm of unspecified site of unspecified female breast; C78.00 Secondary malignant neoplasm of unspecified lung; I48.91 Unspecified atrial fibrillation; J18.9 Pneumonia, unspecified organism; E11.40 Type 2 diabetes mellitus with diabetic neuropathy, unspecified; E11.319 Type 2 diabetes mellitus with unspecified diabetic retinopathy without macular edema; R60.9 Edema, unspecified; R63.5 Abnormal weight gain; Z79.4 Long term (current) use of insulin; Z79.899 Other long term (current) drug therapy; Z79.891 Long term (current) use of opiate analgesic; Z79.82 Long term (current) use of aspirin; Z88.0 Allergy status to penicillin; Z88.2 Allergy status to sulfonamides; Z91.048 Other nonmedicinal substance allergy status; Z66 Do not resuscitate; Z86.19 Personal history of other infectious and parasitic diseases
CPT/HCPCS: 99310

== ENCOUNTER 2018-12-11 08:00 | Outpatient (CLI) | payer MEDICARE, OTHER ==
[2018-12-11 22:53] LABS: BASOPHILS # (AUTO) 0.1 10^3/uL (0.0-0.1); BASOPHILS % (AUTO) 0.4 %; EOSINOPHILS # (AUTO) 1.1 10^3/uL (0.0-0.7); EOSINOPHILS % (AUTO) 6.1 %; LYMPHOCYTES # (AUTO) 0.6 10^3/uL (1.5-3.5); LYMPHOCYTES % (AUTO) 3.3 %; MEAN CORPUSCULAR VOLUME 102.9 fL (81.0-99.0); MEAN PLATELET VOLUME 11.4 fL (7.9-10.8); MONOCYTES # (AUTO) 1.5 10^3/uL (0.0-1.0); MONOCYTES % (AUTO) 8.4 %; NEUTROPHILS # (AUTO) 14.4 10^3/uL (1.5-6.6); NEUTROPHILS % (AUTO) 80.2 %; PLT - PLATELET COUNT 277 10^3/uL (130-450); RED BLOOD COUNT 2.73 10^6/uL (4.20-5.40); RED CELL DISTRIBUTION WIDTH 17.3 % (12.0-15.0); WHITE BLOOD COUNT 17.9 x10^3/uL (4.8-10.8)
[2018-12-11 23:01] LABS: CALCIUM 9.4 mg/dL (8.5-10.3); CREATININE 1.6 mg/dL (0.4-1.0)
[2018-12-11 23:29] LABS: DIFFERENTIAL COMMENT MANUAL=AUTO DIFF; PLATELET ESTIMATE, MANUAL NORMAL (130-450,000) (NORMAL); RBC MORPHOLOGY (MULTIPLE) NORMAL APPEARANCE (NORMAL)
== END 2018-12-11 23:59 | disposition home or self-care (01) ==
LOC: LAB.R 08:00
DX: J18.9 Pneumonia, unspecified organism (principal); E87.6 Hypokalemia
CPT/HCPCS: 80048; 85025

== ENCOUNTER 2018-12-13 04:39 | Outpatient (CLI) | payer MEDICARE, OTHER | END 2018-12-13 04:40 | disposition critical access hospital (66) | LOC: EMS 04:39 | PROVIDERS: ATTEND Surgery | DX: R06.02 Shortness of breath (principal); R60.0 Localized edema; R50.9 Fever, unspecified | CPT/HCPCS: A0425; A0429 ==

== ENCOUNTER 2018-12-13 04:46 | Inpatient (IN) | payer MEDICARE, OTHER ==
--- NOTE | 2018-12-13 05:09 | ED Physician Documentation ---
PD HPI DYSPNEA - Stated complaint Stated Complaint: DYSPNEA - Chief complaint Chief Complaint: Resp - History obtained from History obtained from: Patient, Family (spouse) - History of Present Illness Timing - onset: Today Timing - onset during: Rest Timing - details: Gradual onset Pain level now: 4 (chronic left shoulder pain) Improved by: O2 Associated symptoms: Fever, Cough Recently seen: Emergency Dept - Additional information Additional information: from [place] for dyspnea and hypoxia. Per medic report, patient's pulse ox was 71% RA and only improved to 81% with oxygen concentrator. Medics able to improve pulse ox to 91% with 8 liters/min oxygen by mask. DREW 160s on scene as well as en route to ED. T+R 12/07 from this ED for similar presentation and was rx Levaquin for suspected pneumonia; of note, she had been discharged from inpatient [facility] last month for similar problems and was also on Levaquin at that time (and thus was actually restarted on Levaquin 12/07) Review of Systems Unable to obtain: Confused (limited ROS due to confusion) Constitutional: reports: Fever Cardiac: denies: Chest pain / pressure Respiratory: reports: Dyspnea, Cough PD PAST MEDICAL HISTORY - Past Medical History Cardiovascular: Hypertension, High cholesterol, Deep vein thrombosis, Pulmonary embolism, Atrial fibrillation Respiratory: Asthma, COPD, Pneumonia, Shortness of breath Neuro: None Endocrine/Autoimmune: Type 2 diabetes GI: None 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: Breast cancer : None HEENT: None Psych: Depression, Anxiety (patient has long had difficulty with anxiety) Musculoskeletal: Osteoarthritis, Gout, Fatigue, Chronic back pain Derm: Other (multiple foot injuries) - Past Surgical History Past Surgical History: Yes Ortho: Knee replacement /GAS LEAK TESTER: 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 Cardiovascular: CABG, Coronary stent, Other (portacath plascemtn) - Present Medications Home Medications: Ambulatory Orders Medication Instructions Recorded Confirmed Potassium Chloride [K-Tab ER] 20 meq PO DAILY 11/16/12 12/13/18 Furosemide 80 mg PO DAILY 10/17/16 12/13/18 Insulin Glargine [Lantus] 15 units SUBQ QPM 10/17/16 12/13/18 Pantoprazole Sodium 40 mg PO QDAC 10/17/16 12/13/18 Pravastatin [Pravachol] 40 mg PO QPM 10/18/16 12/13/18 Alendronate [Fosamax] 70 mg PO SIEGEL@0700 05/12/18 12/13/18 Aspirin [Adult Aspirin Regimen] 81 mg PO DAILY 05/18/18 12/13/18 Letrozole 2.5 mg PO DAILY 09/02/18 12/13/18 Albuterol Sulfate [Proair Hfa 2 puffs INH Q6H PRN 11/18/18 12/13/18 Inhaler] Venlafaxine HCl 37.5 mg PO BID 11/18/18 12/13/18 Ferrous Sulfate 325 mg PO DAILY #30 tablet 11/27/18 12/13/18 Lactobacillus Rhamnosus GG 1 cap PO DAILY #2 capsule 11/27/18 12/13/18 [Culturelle] Lidocaine Patch 5% [Lidoderm Patch] 1 patch TOP DAILY #30 patch 11/27/18 12/13/18 Montelukast [Singulair] 10 mg PO QPM #30 tablet 11/27/18 12/13/18 Tiotropium [place] [Spiriva] 1 puffs INH DAILY 30 Days #30 each 11/27/18 12/13/18 Digoxin 125 mcg PO DAILY #7 tablet 12/07/18 12/13/18 Acetaminophen 500 mg PO BID MDD 3000 12/10/18 12/13/18 Acetaminophen [Tylenol Extra 500 mg PO Q6HR PRN 12/10/18 12/13/18 Strength] Cholecalciferol (Vitamin D3) 1,000 unit PO DAILY 12/10/18 12/13/18 [Vitamin D3] Meloxicam 15 mg PO DAILY 12/10/18 12/13/18 Metoprolol Succinate [Toprol Xl] 50 mg PO DAILY 12/10/18 12/13/18 oxyCODONE [Roxicodone] 5 mg PO Q4HR PRN 12/10/18 12/13/18 traZODone [Desyrel] 25 mg PO QPM 12/10/18 12/13/18 Calcium Carbonate [Tums (Calcium 1,000 mg PO DAILY 12/13/18 12/13/18 Carbonate 500mg)] Fluticasone/Salmeterol [Advair 1 puffs INH BID 12/13/18 12/13/18 250-50 Diskus] Insulin Aspart [NovoLOG] 1 - 9 unit SUBQ 0800,1200,1700,2100 12/13/18 12/13/18 Levofloxacin [Levaquin] 500 mg PO DAILYX3 12/13/18 12/13/18 - Allergies Allergies/Adverse Reactions: Allergies Allergy/AdvReac Type Severity Reaction Status Date / Time Sulfa (Sulfonamide Allergy Severe Hives Verified 11/18/18 14:16 Antibiotics) adhesive Allergy Mild Rash Verified 11/18/18 14:16 Penicillins Allergy Hives Verified 11/18/18 15:00 - Social History Does the pt smoke?: No Smoking Status: Never smoker Does the pt drink ETOH?: Yes Does the pt have substance abuse?: No - Immunizations Immunizations are current?: Yes - POLST Patient has POLST: Yes PD ED PE NORMAL - Vitals Vital signs reviewed: Yes - General General: Well developed/nourished, Other (appears anxious, mild/moderate dyspnea) - HEENT HEENT: Moist mucous membranes - Neck Neck: Supple, no meningeal sign - Abdomen Abdomen: Soft, Non tender - Derm Derm: Normal color, Warm and dry PD ED PE EXPANDED - Cardiac Cardiac: Tachy, Irregularly irregular - Respiratory Respiratory: Rhonchi, Decreased breath sounds - Extremities Extremities: Pedal edema bilateral, Other (BUE edema L>R) Results - Vitals Vitals: Vital Signs - 24 hr 12/13/18 12/13/18 12/13/18 04:47 05:00 05:30 Temperature 38.1 C H Heart Rate 160 H 166 H 168 H Respiratory 22 24 Rate Blood Pressure 112/60 110/65 107/56 L O2 Saturation 86 L 100 100 12/13/18 12/13/18 12/13/18 06:00 06:30 06:44 Temperature 36.9 C Heart Rate 144 H 117 H Respiratory 26 H 25 H Rate Blood Pressure 113/67 89/56 L O2 Saturation 98 100 12/13/18 12/13/18 07:01 07:30 Temperature 36.9 C Heart Rate 142 H 148 H Respiratory 22 25 H Rate Blood Pressure 104/48 L 103/85 H O2 Saturation 100 95 Oxygen O2 Source [With Activity] Room air O2 Source [Without Activity] Room air O2 Source Nasal cannula Oxygen Flow Rate 10 - EKG (time done) No standard instances Rate: Rate (enter#), Tachy Rhythm: Atrial fibrillation (165) [place]: Normal Ischemia: Normal ST segments - Labs Labs: Laboratory Tests 12/13/18 12/13/18 12/13/18 04:08 06:00 06:00 WBC 20.4 H RBC 2.78 L Hgb 9.1 L Hct 27.8 L MCV 100.0 H MCH 32.7 H MCHC 32.7 RDW 17.2 H Plt Count 330 MPV 10.6 Neut # (Auto) Not Reportable Lymph # (Auto) Not Reportable Scurry # (Auto) Not Reportable Eos # (Auto) Not Reportable Baso # (Auto) Not Reportable Absolute Nucleated RBC Not Reportable Total Counted 100 Band Neuts % (Manual) 2 Abnorm Lymph % (Manual) 0 Nucleated RBC % Not Reportable Neutrophils # (Manual) 16.9 H Lymphocytes # (Manual) 1.2 L Monocytes # (Manual) 1.4 H Eosinophils # (Manual) 0.8 H Basophils # (Manual) 0.0 Differential Comment MANUAL DIFFERENTIAL Platelet Estimate NORMAL (130-450,000) RBC Morph Micro Appear NORMAL APPEARANCE PT 16.5 H INR 1.5 H APTT 21.4 L Sodium Potassium Chloride Carbon Dioxide Anion Gap BUN Creatinine Estimated GFR (MDRD) Glucose Lactic Acid Calcium Phosphorus Magnesium Total Bilirubin AST ALT Alkaline Phosphatase Troponin I B-Natriuretic Peptide Total Protein Albumin Globulin Albumin/Globulin Ratio Lipase TSH Last Dose Date UNK Last Dose Time UNK Digoxin 1.1 12/13/18 12/13/18 12/13/18 06:00 06:00 06:00 WBC RBC Hgb Hct MCV MCH MCHC RDW Plt Count MPV Neut # (Auto) Lymph # (Auto) Scurry # (Auto) Eos # (Auto) Baso # (Auto) Absolute Nucleated RBC Total Counted Band Neuts % (Manual) Abnorm Lymph % (Manual) Nucleated RBC % Neutrophils # (Manual) Lymphocytes # (Manual) Monocytes # (Manual) Eosinophils # (Manual) Basophils # (Manual) Differential Comment Platelet Estimate RBC Morph Micro Appear PT INR APTT Sodium 138 Potassium 5.0 Chloride 101 Carbon Dioxide 26 Anion Gap 11.0 BUN 59 H Creatinine 1.5 H Estimated GFR (MDRD) 33 L Glucose 146 H Lactic Acid Calcium 9.5 Phosphorus Magnesium Total Bilirubin 0.8 AST 29 ALT 30 Alkaline Phosphatase 115 Troponin I 0.04 B-Natriuretic Peptide 314 H Total Protein 5.5 L Albumin 2.3 L Globulin 3.2 Albumin/Globulin Ratio 0.7 L Lipase 19 L TSH Last Dose Date Last Dose Time Digoxin 12/13/18 12/13/18 12/13/18 06:00 06:00 06:00 WBC RBC Hgb Hct MCV MCH MCHC RDW Plt Count MPV Neut # (Auto) Lymph # (Auto) Scurry # (Auto) Eos # (Auto) Baso # (Auto) Absolute Nucleated RBC Total Counted Band Neuts % (Manual) Abnorm Lymph % (Manual) Nucleated RBC % Neutrophils # (Manual) Lymphocytes # (Manual) Monocytes # (Manual) Eosinophils # (Manual) Basophils # (Manual) Differential Comment Platelet Estimate RBC Morph Micro Appear PT INR APTT Sodium Potassium Chloride Carbon Dioxide Anion Gap BUN Creatinine Estimated GFR (MDRD) Glucose Lactic Acid 1.1 Calcium Phosphorus 3.5 Magnesium 1.7 Total Bilirubin AST ALT Alkaline Phosphatase Troponin I B-Natriuretic Peptide Total Protein Albumin Globulin Albumin/Globulin Ratio Lipase TSH 2.51 Last Dose Date Last Dose Time Digoxin - Rads (name of study) chest xray Radiology: Prelim report reviewed, See rad report Procedures - Central Line Central Line Preparation: Unable to obtain consent (emergent placement necessary), Ultrasound used, Sterile prep and drape Central line location: Right IJ Central line type: Triple lumen Central line aftercare: Chlorhexidine disc placed, Secured, Placement confirmed, No pneumothorax, No complications, Pt tolerated well PD MEDICAL DECISION MAKING - ED course Complexity details: reviewed old records, reviewed results, re-evaluated patient, considered differential, d/w patient, d/w family Departure - Departure Disposition: 66 [facility] DC/Xfer Clinical Impression: Atrial fibrillation with rapid ventricular response Pneumonia Qualifiers: Pneumonia type: due to unspecified organism Laterality: bilateral Lung location: unspecified part of lung Qualified Code(s): J18.9 - Pneumonia, unspecified organism Dyspnea Qualifiers: Dyspnea type: unspecified Qualified Code(s): R06.00 - Dyspnea, unspecified Condition: Serious Discharge Date/Time: 12/13/18 09:41
[2018-12-13] MEDS ORDERED: diltiaZEM INJ 5 MG/ML VIAL IVP STA ×2 (05:57→07:50)
[2018-12-13] MEDS ORDERED: ACETAMINOPHEN 1,000 MG/100 ML 100 ML IV STA (05:58)
[2018-12-13 06:12] LABS: BASOPHILS % (AUTO) 0.4 %; EOSINOPHILS % (AUTO) 5.6 %; HGB - HEMOGLOBIN 9.1 g/dL (12.0-16.0); LYMPHOCYTES % (AUTO) 2.8 %; MEAN CORPUSCULAR HEMOGLOBIN 32.7 pg (27.0-31.0); MEAN CORPUSCULAR HGB CONC 32.7 g/dL (32.0-36.0); MEAN PLATELET VOLUME 10.6 fL (7.9-10.8); MONOCYTES % (AUTO) 9.1 %; NEUTROPHILS % (AUTO) 80.3 %; PLT - PLATELET COUNT 330 10^3/uL (130-450); RED BLOOD COUNT 2.78 10^6/uL (4.20-5.40); RED CELL DISTRIBUTION WIDTH 17.2 % (12.0-15.0); WHITE BLOOD COUNT 20.4 x10^3/uL (4.8-10.8)
[2018-12-13 06:18] LABS: ABNORMAL LYMPHS % (MANUAL) 0 %
[2018-12-13 06:25] LABS: INR 1.5 (0.8-1.2); PT - PROTHROMBIN TIME 16.5 secs (9.9-12.6)
[2018-12-13 06:32] LABS: PARTIAL THROMBOPLASTIN TIME 21.4 secs (24.9-33.3)
[2018-12-13 06:35] LABS: BAND NEUTROPHILS % (MANUAL) 2 %; DIFFERENTIAL COMMENT MANUAL DIFFERENTIAL; EOSINOPHILS # (MANUAL) 0.8 10^3/uL (0-0.7); LYMPHOCYTES # (MANUAL) 1.2 10^3/uL (1.5-3.5); LYMPHOCYTES % (MANUAL) 6 %; MONOCYTES # (MANUAL) 1.4 10^3/uL (0.0-1.0); NEUTROPHILS # (MANUAL) 16.9 10^3/uL (1.5-6.6); NEUTROPHILS % (MANUAL) 81 %; PLATELET ESTIMATE, MANUAL NORMAL (130-450,000) (NORMAL); RBC MORPHOLOGY (MULTIPLE) NORMAL APPEARANCE (NORMAL)
--- NOTE | 2018-12-13 06:36 | XRAY Report ---
Reason: dyspnea Procedure Date: 12/13/2018 Accession Number: [id number] / [id number] Procedure: XR - Chest 1 View X-Ray CPT Code: 88443 FULL RESULT: EXAM: CHEST RADIOGRAPHY EXAM DATE: 12/13/2018 05:59 AM. CLINICAL HISTORY: Dyspnea, shortness of breath. COMPARISON: CHEST 1 VIEW 11/26/2018 12:59 PM CHEST 1 VIEW 11/24/2018 9:05 AM CHEST 1 VIEW 12/07/2018 7:05 PM CHEST 1 VIEW 11/21/2018 7:29 AM. TECHNIQUE: 1 view. FINDINGS IMPRESSION: 1. Patchy multifocal right upper lobe airspace disease demonstrate progression from the prior examination. Left perihilar as well as basilar airspace disease is again seen, with slight progression as well. These findings may be due to progressive infection, neoplasm, aspiration, and/or atelectasis. 2. There is a medium sized left-sided pleural effusion, stable from the prior exam. Trace right effusion is also stable from the prior exam. 3. Left-sided Port-A-Cath device tip projects over the cavoatrial junction. Right IJ central venous catheter tip projects over the lower SVC. 4. There is mild to moderate enlargement of the cardiac silhouette, stable from the prior study. Severe calcific aortic atherosclerosis. Mild central pulmonary venous congestion is noted. Equivocal mild interstitial edema. 5. No definite evidence of a pneumothorax demonstrated on this exposure. 6. Severe left shoulder degenerative change. Moderate right shoulder degenerative change. RADIA
[2018-12-13] MEDS ORDERED: MORPHINE 2 MG/ML CARPUJECT IVP STA (06:54)
[2018-12-13] MEDS ORDERED: cefTRIAXone 1 GM in SODIUM CHLORIDE 0.9% MINIBAG 100 ML IV STA (06:58)
[2018-12-13] MEDS ORDERED: AZITHROMYCIN INJ 500 MG in SODIUM CHLORIDE 0.9% 250 ML IV STA (07:00)
[2018-12-13 07:22] LABS: ALBUMIN 2.3 g/dL (3.2-5.5); ALBUMIN/GLOBULIN RATIO 0.7 (1.0-2.2); BILIRUBIN,TOTAL 0.8 mg/dL (0.2-1.0); CALCIUM 9.5 mg/dL (8.5-10.3); CREATININE 1.5 mg/dL (0.4-1.0); TOTAL PROTEIN 5.5 g/dL (6.7-8.2)
[2018-12-13 07:24] LABS: DIGOXIN 1.1 ng/mL
[2018-12-13] MEDS ORDERED: SODIUM CHLORIDE FLUSH 0.9% 10 ML SYRINGE IVP PRN (08:10)
[2018-12-13] MEDS ORDERED: ACETAMINOPHEN 325 MG TABLET PO PRN (08:10)
[2018-12-13] MEDS ORDERED: SODIUM CHLORIDE 0.9% 500 ML IV STA (08:27)
[2018-12-13] MEDS ORDERED: LIDOCAINE PATCH 5% TOP STA (08:27)
[2018-12-13 08:52] LABS: MAGNESIUM 1.7 mg/dL (1.7-2.8); PHOSPHORUS 3.5 mg/dL (2.5-4.6)
[2018-12-13] MEDS: MORPHINE 2 MG/ML CARPUJECT IVP PRN ×3 (11:37→21:32)
[2018-12-13] MEDS: SODIUM CHLORIDE FLUSH 0.9% 10 ML SYRINGE IVP SCH ×2 (11:37→16:17)
[2018-12-13] MEDS: NYSTATIN POWDER 15 GM TOP SCH ×2 (11:37→21:35)
[2018-12-13] MEDS: HEPARIN 5,000 UNIT/ML VIAL SUBQ SCH ×2 (11:37→21:27)
[2018-12-13] MEDS ORDERED: LACTATED RINGERS 500 ML IV ONE (11:39)
[2018-12-13] MEDS ORDERED: SODIUM CHLORIDE 0.9% IV SCH ×2 (12:00)
[2018-12-13] MEDS ORDERED: VANCOMYCIN INJ 1 GM, VANCOMYCIN INJ 250 MG in SODIUM CHLORIDE 0.9% 250 ML IV SCH ×2 (12:00→12:43)
[2018-12-13] MEDS ORDERED: VANCOMYCIN 500 MG VIAL ONE (12:00)
[2018-12-13] MEDS ORDERED: VANCOMYCIN IV SCH ×2 (12:00)
[2018-12-13] MEDS ORDERED: LACTATED RINGERS 1,000 ML IV ONE (12:03)
[2018-12-13] MEDS: INSULIN ASPART 300 UNIT/3 ML PEN SUBQ SCH ×3 (12:13→21:36)
[2018-12-13] MEDS ORDERED: IPRATROPIUM 0.2 MG/ML NEB INH SCH (13:00)
[2018-12-13] MEDS: ASPIRIN EC 81 MG TABLET PO SCH (13:11)
[2018-12-13] MEDS: METOPROLOL SUCCINATE 25 MG TABLET PO SCH (13:11)
[2018-12-13] MEDS: PANTOPRAZOLE 40 MG TABLET PO SCH (13:11)
--- NOTE | 2018-12-13 18:28 | HISTORY & PHYSICAL EXAMINATION ---
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 This only im proved to the 80's with supplemental oxygen and hence medical treatment was seeked. She was previously admitted mid November for acute hypoxic respiratory failure secondary to pneumonitis and atrial fibrillation with RVR. She was treated with Vancomycin IV and Levaquin IV with improvement and discharged on oral Levaquin. She was then seen in the emergency department on December 07 and diagnosed with pneumonia. She was discharged with a prescription for oral Levaquin. She reports doing well since that time and reported no symptoms until this morning when she developed fevers, dyspnea, and a nonproductive cough. Her spouse tells me that her Lasix dose was increased over the last few days as she had increasing lower extremity edema. She reports adequate appetite and oral intake. She reports palpitations and orthopnea. While in the emergency department here, she was found to be in Afib w/ RVR and heart rates in the 150's. She received Cardizem 10mg IV x2 with improvement into the 110's. She was febrile and chest x-ray was concerning for worsening infiltrates and a left sided pleural effusion. She received Azithromycin and Ceftriaxone IV. Her initial oxygen requirements were high and she required a nonrebreather which was able to be weaned to a nasal cannula at 8L of O2. I did speak with the patient and her spouse regarding her goals of care. She has a POLST form which states she would not want CPR or intubation. The patient expressed today that this continues to be her wishes and that she does not want heroic measures. 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: Breast cancer : reports: None HEENT: reports: None Psych: reports: Depression, Anxiety (patient has long had difficulty with anxiety) Musculoskeletal: reports: Osteoarthritis, Gout, Fatigue, Chronic back pain Derm: reports: Other (multiple foot injuries) MRSA Hx?: Yes - Past Surgical History Ortho: reports: Knee replacement /DOPE AND FABRIC WORKER: reports: 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 Cardiovascular: reports: CABG, Coronary stent, Other (portacath plascemtn) - Family & Social History Family History: Mother: , CAD, Father: , CVA/TIA, Diabetes, Type 2 Living arrangement: [facility] Social History Notes: The patient is aoriginally from [place] [facility] [place]. Moved to [facility] 40 years ago. Now lives 6 months in [place] and 6 months on [facility]. She lives with her . They are independent. Patient was using a cane till recent injury to her knee and now uses cane and wheelchair. She has 3 children. - Substance History Use: Uses substance without health or social issues: NONE - POLST Patient has POLST: Yes POLST Status: DNR (DNI) Meds/Allgy - Home Medications Home Medications: Ambulatory Orders Medication Instructions Recorded Confirmed Potassium Chloride [K-Tab ER] 20 meq PO DAILY 11/16/12 12/13/18 Furosemide 80 mg PO DAILY 10/17/16 12/13/18 Insulin Glargine [Lantus] 15 units SUBQ QPM 10/17/16 12/13/18 Pantoprazole Sodium 40 mg PO QDAC 10/17/16 12/13/18 Pravastatin [Pravachol] 40 mg PO QPM 10/18/16 12/13/18 Alendronate [Fosamax] 70 mg PO SIEGEL@0700 05/12/18 12/13/18 Aspirin [Adult Aspirin Regimen] 81 mg PO DAILY 05/18/18 12/13/18 Letrozole 2.5 mg PO DAILY 09/02/18 12/13/18 Albuterol Sulfate [Proair Hfa 2 puffs INH Q6H PRN 11/18/18 12/13/18 Inhaler] Venlafaxine HCl 37.5 mg PO BID 11/18/18 12/13/18 Ferrous Sulfate 325 mg PO DAILY #30 tablet 11/27/18 12/13/18 Lactobacillus Rhamnosus GG 1 cap PO DAILY #2 capsule 11/27/18 12/13/18 [Culturelle] Lidocaine Patch 5% [Lidoderm Patch] 1 patch TOP DAILY #30 patch 11/27/18 12/13/18 Montelukast [Singulair] 10 mg PO QPM #30 tablet 11/27/18 12/13/18 Tiotropium [place] [Spiriva] 1 puffs INH DAILY 30 Days #30 each 11/27/18 12/13/18 Digoxin 125 mcg PO DAILY #7 tablet 12/07/18 12/13/18 Acetaminophen 500 mg PO BID MDD 3000 12/10/18 12/13/18 Acetaminophen [Tylenol Extra 500 mg PO Q6HR PRN 12/10/18 12/13/18 Strength] Cholecalciferol (Vitamin D3) 1,000 unit PO DAILY 12/10/18 12/13/18 [Vitamin D3] Meloxicam 15 mg PO DAILY 12/10/18 12/13/18 Metoprolol Succinate [Toprol Xl] 50 mg PO DAILY 12/10/18 12/13/18 oxyCODONE [Roxicodone] 5 mg PO Q4HR PRN 12/10/18 12/13/18 traZODone [Desyrel] 25 mg PO QPM 12/10/18 12/13/18 Calcium Carbonate [Tums (Calcium 1,000 mg PO DAILY 12/13/18 12/13/18 Carbonate 500mg)] Fluticasone/Salmeterol [Advair 1 puffs INH BID 12/13/18 12/13/18 250-50 Diskus] Insulin Aspart [NovoLOG] 1 - 9 unit SUBQ 0800,1200,1700,2100 12/13/18 12/13/18 Levofloxacin [Levaquin] 500 mg PO DAILYX3 12/13/18 12/13/18 - Allergies Allergies/Adverse Reactions: Allergies Allergy/AdvReac Type Severity Reaction Status Date / Time Sulfa (Sulfonamide Allergy Severe Hives Verified 11/18/18 14:16 Antibiotics) adhesive Allergy Mild Rash Verified 11/18/18 14:16 Penicillins Allergy Hives Verified 11/18/18 15:00 Review of Systems - Constitutional Constitutional: reports: Fatigue, Fever. denies: Poor appetite, Weight gain, Weight loss - Cardiovascular Cariovascular: reports: Palpitations, Edema, Orthopnea. denies: Chest pain - Respiratory Respiratory: reports: Cough, Orthopnea, SOB at rest - Gastrointestinal Gastrointestinal: denies: Abdominal pain, Nausea, Vomiting - Genitourinary Genitourinary: denies: Dysuria, Frequency, Urgency - Musculoskeletal Musculoskeletal: reports: Back pain, Limited range of motion, Joint pain - Neurological Neurological: denies: General weakness - All Other Systems All Other Systems: reports: Reviewed and negative Prior Level of Functionality: Currently resides at a SNF. Functional performance has been declining over last few weeks secondary to infections and joint pain. Requires assisted device for ambulation. Exam - Vital Signs Vital Signs: Vital Signs x48h Temp Pulse Resp BP Pulse Ox 12/13/18 15:59 36.9 C 103 H 22 116/86 H 95 12/13/18 15:00 114 H 20 165/80 H 100 12/13/18 14:00 81 14 146/75 H 93 12/13/18 13:00 100 20 103/66 100 12/13/18 12:00 113 H 19 109/74 98 12/13/18 11:00 113 H 22 108/46 L 97 - Physical Exam General Appearance: positive: Moderate distress Eyes Bilateral: positive: Normal inspection Respiratory: positive: Other (Tachypnic with moderate distress. Diminished breath sounds at left base. Rhonci noted in the right lung field.) Cardiovascular: positive: Irregularly irregular, Tachycardia Abdomen: positive: Non-tender, No distention, Tenderness Extremities: positive: Other (Left shoulder tender to palpation with decreased range of motion.) Neurologic/Psychiatric: positive: Oriented x3 Sepsis Event Note (H) - Evaluation Current Stage of Sepsis: Sepsis Possible source of Sepsis: positive: Pulmonary - Sepsis Criteria Sepsis Criteria: Recorded Temperature greater than 38.3C or Less than 36C, Recorded Heart Rate greater than 90 bpm, Recorded Respiratory Rate greater than 20, WBC count greater than 12,000 or less than 4000 Conclusion/Plan - Problem List (1) Acute respiratory failure with hypoxia Conclusion/Plan: This is likely multifactorial in nature with a component of pneumonia/pneumonitis and a large left pleural effusion. Do not suspect pulmonary embolism as she has an IVC filter in place and last V/Q scan in November was not suggestive of a mismatch. Initially required nonrebrether but is now on 4L nasal cannula. Chest x-ray concerning for worsening infiltrates predominantly in the right upper lobe. She did have a prior CT of the chest which was concerning for infiltrates in that area which may have been inflammatory or infectious in nature. She was receiving Levaquin on an outpatient basis since December 07. - Will broaden her antibiotics to Vancomycin and Azithromycin to cover for MRSA and atypicals. Will continue Ceftriaxone for gram negative coverage. - Swallow evaluation - Repeat chest x-ray in AM - Wean oxygen as tolerated (2) Sepsis due to pneumonia Conclusion/Plan: Presented with fevers, leukocytosis, tachycardia, tachypnea, worsening right upper lobe infiltrates on chest x-ray Failed outpatient treatment with Levaquin - Broad spectrum antibiotics with Vancomycin, Azithromycin, Ceftriaxone. De- escalate based off clinical improvement - Check CRP, will consider steroids if elevated - Follow up cultures - Daily CBC (3) Atrial fibrillation with rapid ventricular response Conclusion/Plan: Presented with rates in the 150's. Prior ECHO without structural disease. EKG without ST segment changes. Troponin negative. Responded to Cardizem 10mg IV with improvement to the 110's Not on anticoagulation due to history of subdural bleed - Restart home metoprolol, will consider cardizem IV if rates persistently elevated or Amiodarone bolus if blood pressure is borderline - Check TSH - Optimize electrolytes (4) Anemia Conclusion/Plan: Her anemia is likely due to chronic disease. She previously had pancytopenia likely due to the chemotherapy agents. Baseline appears to be around 10-11 but it is decreased at 9.1 this morning. No signs of obvious bleeding. 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 She was previously on Letrozole/Ibrance with her last dose at the end of October. This was discontinued as she developed a left foot infection which required antibiotics. She previously followed with Dr. Joseph but will now be seeing a new Oncologist whom she has not met yet. Qualifiers: Laterality: right Qualified Code(s): C50.911 - Malignant neoplasm of unspecified site of right female breast; C78.00 - Secondary malignant neoplasm of unspecified lung (6) Diabetes Conclusion/Plan: She is on Lantus and sliding scale. Blood glucose has been controlled. - Continue home lantus with sliding scale - CC diet Qualifiers: Diabetes mellitus type: type 2 (7) History of coronary artery disease Conclusion/Plan: She has a history of CAD s/p CABG. Last ECHO in November revealed preserved EF. Troponin negative in the emergency department. EKG shows atrial fibrillation without obvious ST segment changes. - Continue home statin/aspirin - Trend troponin - Monitor telemetry (8) History of pulmonary embolism Conclusion/Plan: She had an IVC filter in place. Last V/Q scan in November was low suspicion for defect - Heparin SC for DVT prophylaxis (9) Hyperlipidemia Conclusion/Plan: Continue home statin (10) Hypertension Conclusion/Plan: Blood pressure has been borderline hypotensive after receiving Cardizem - Hold home antihypertensives except for Metoprolol as she has afib w/ RVR - She may be septic and although she appears hypervolemic, I believe she might be intravascularly as her Lasix dose was recently increased and her current renal function. Therefore we will administer small IV boluses as tolerated. (11) Pleural effusion Conclusion/Plan: This appears chronic in nature and her spouse tells me that she has had a thoracentesis in the past. It appears unchanged compared to prior imaging and I suspect it is likely malignant secondary to her history of breast cancer. - If her respiratory does not improve with antibiotics, will consider a thoracentesis. She will likely require diuresis in the future which may also improve the effusion. (12) Renal insufficiency Conclusion/Plan: It appears she non-oliguric acute kidney on CKD Creatinine has ranged from 1-1.5 over past few months - currently 1.5 on admission with elevated BUN in the 50's Likely a component of pre-renal from sepsis and extra dose of diuretics - Gently hydration with IVF fluids - Monitor renal function and urine output - Lab Results Lab results reviewed: Yes Fish Bones: 12/13/18 06:00 12/13/18 06:00 - Diagnostic Imaging Results Diagnostic Imaging Results: positive: See rad report, Read independently
[2018-12-13] MEDS ORDERED: BUDESONIDE 0.5 MG/2 ML NEB INH SCH (19:00)
[2018-12-13] MEDS ORDERED: INSULIN GLARGINE 300 UNIT/3 ML PEN SUBQ SCH ×3 (21:00)
[2018-12-13] MEDS: traZODone 50 MG TABLET PO SCH (21:34)
[2018-12-13] MEDS: VENLAFAXINE 37.5 MG TABLET PO SCH (21:35)
[2018-12-13] MEDS: PRAVASTATIN 40 MG TABLET PO SCH (21:35)
[2018-12-13] MEDS: MONTELUKAST 10 MG TABLET PO SCH (21:35)
[2018-12-13] MEDS: LACTATED RINGERS 1,000 ML IV SCH (21:37)
[2018-12-13] MEDS: FORMOTEROL FUMARATE NEB 20 MCG/2 ML INH SCH (21:49)
[2018-12-13] MEDS ORDERED: MIN OIL/DIMETHICON/COCONUT OIL 92 GM TUBE TOP PRN (22:52)
[2018-12-14] MEDS: oxyCODONE 5 MG TABLET PO PRN ×2 (00:15→07:49)
[2018-12-14] MEDS: SODIUM CHLORIDE FLUSH 0.9% 10 ML SYRINGE IVP SCH ×3 (00:15→17:48)
[2018-12-14 05:33] LABS: BASOPHILS # (AUTO) 0.1 10^3/uL (0.0-0.1); BASOPHILS % (AUTO) 0.3 %; EOSINOPHILS # (AUTO) 1.1 10^3/uL (0.0-0.7); EOSINOPHILS % (AUTO) 6.8 %; HGB - HEMOGLOBIN 8.4 g/dL (12.0-16.0); LYMPHOCYTES # (AUTO) 0.7 10^3/uL (1.5-3.5); LYMPHOCYTES % (AUTO) 4.4 %; MEAN CORPUSCULAR HEMOGLOBIN 32.1 pg (27.0-31.0); MEAN CORPUSCULAR HGB CONC 31.7 g/dL (32.0-36.0); MEAN CORPUSCULAR VOLUME 101.1 fL (81.0-99.0); MEAN PLATELET VOLUME 10.2 fL (7.9-10.8); MONOCYTES # (AUTO) 1.7 10^3/uL (0.0-1.0); MONOCYTES % (AUTO) 10.2 %; NEUTROPHILS # (AUTO) 12.9 10^3/uL (1.5-6.6); NEUTROPHILS % (AUTO) 76.8 %; PLT - PLATELET COUNT 322 10^3/uL (130-450); RED BLOOD COUNT 2.62 10^6/uL (4.20-5.40); RED CELL DISTRIBUTION WIDTH 17.3 % (12.0-15.0); WHITE BLOOD COUNT 16.8 x10^3/uL (4.8-10.8)
[2018-12-14 05:44] LABS: CALCIUM 9.3 mg/dL (8.5-10.3); CREATININE 1.5 mg/dL (0.4-1.0); MAGNESIUM 1.6 mg/dL (1.7-2.8); PHOSPHORUS 3.6 mg/dL (2.5-4.6)
[2018-12-14 06:18] LABS: PLATELET ESTIMATE, MANUAL NORMAL (130-450,000) (NORMAL); PLATELET MORPHOLOGY NORMAL APPEARANCE (NORMAL); RBC MORPHOLOGY (MULTIPLE) 2+ HYPOCHROMASIA (NORMAL)
[2018-12-14] MEDS: PANTOPRAZOLE 40 MG TABLET PO SCH (06:23)
[2018-12-14] MEDS: MORPHINE 2 MG/ML CARPUJECT IVP PRN ×5 (06:23→23:24)
[2018-12-14] MEDS ORDERED: MAGNESIUM SULFATE 2 GRAM 2 GM/50 ML BAG IV ONE (06:48)
[2018-12-14] MEDS: METOPROLOL SUCCINATE 25 MG TABLET PO SCH (07:49)
[2018-12-14] MEDS ORDERED: MAGNESIUM OXIDE 400 MG TABLET PO SCH (08:00)
[2018-12-14] MEDS: VENLAFAXINE 37.5 MG TABLET PO SCH ×2 (08:24→21:34)
[2018-12-14] MEDS: HEPARIN 5,000 UNIT/ML VIAL SUBQ SCH ×2 (08:25→21:35)
[2018-12-14] MEDS: ASPIRIN EC 81 MG TABLET PO SCH (08:25)
[2018-12-14] MEDS: INSULIN ASPART 300 UNIT/3 ML PEN SUBQ SCH ×4 (08:32→21:43)
[2018-12-14] MEDS: BUDESONIDE 0.5 MG/2 ML NEB INH SCH ×2 (08:53→21:23)
[2018-12-14] MEDS: IPRATROPIUM 0.2 MG/ML NEB INH SCH ×3 (08:53→21:23)
[2018-12-14] MEDS ORDERED: diltiaZEM INJ 5 MG/ML VIAL IVP STA (08:55)
[2018-12-14] MEDS ORDERED: cefTRIAXone 1 GM in SODIUM CHLORIDE 0.9% MINIBAG 100 ML IV SCH (09:00)
[2018-12-14] MEDS ORDERED: AZITHROMYCIN 250 MG TABLET PO SCH (09:00)
--- NOTE | 2018-12-14 09:00 | PROVIDER PROGRESS NOTE ---
Subjective - Prog Note Date Prog Note Date: 12/14/18 Prog Note Time: 08:57 - Subjective Subjective: She reports feeling well up until this morning. She felt anxious this morning while she was receiving her morning medications. Reports dyspnea, cough, and p alpitations. Denies chest pain, fevers. Her heart rate had been stable in the 100's-110's overnight until this morning where it has persistently been in the 140's-150's. Oxygen requirements have scout ined at 4L of O2 via nasal cannula. Current Medications - Current Medications Current Medications: Active Medications Acetaminophen (Tylenol) 650 mg PO Q6HR PRN PRN Reason: Pain 1 to 4 Last Admin: 12/13/18 21:34 Dose: 650 mg Aspirin (Ecotrin) 81 mg PO DAILY [facility] [place] Last Admin: 12/14/18 08:25 Dose: 81 mg Azithromycin (Zithromax) 250 mg PO DAILY [facility] [place] Last Admin: 12/14/18 08:24 Dose: 250 mg Budesonide (Pulmicort) 0.5 mg INH RTBID [facility] [place] Last Admin: 12/14/18 08:53 Dose: 0.5 mg Diltiazem HCl (Cardizem Inj) 10 mg IVP ONCE STA Stop: 12/14/18 08:56 Formoterol Fumarate (Perforomist) 20 mcg INH RTBID [facility] [place] Last Admin: 12/13/18 21:49 Dose: Not Given Heparin Sodium (Beef Lung) () 30 - 50 unit IVP PRN PRN PRN Reason: Central Line Protocol (<24 hr) Heparin Sodium (Porcine) () 5,000 unit SUBQ BID [facility] [place] Last Admin: 12/14/18 08:25 Dose: 5,000 unit Vancomycin HCl 1 gm/Vancomycin HCl 250 mg/ Sodium Chloride 250 mls @ 168 mls/hr IV Q24H [facility] [place] Last Infusion: 12/13/18 14:30 Dose: Infused Lactated Ringer's (Lr) 1,000 mls @ 75 mls/hr IV .[id number] [facility] [place] Last Admin: 12/13/18 21:37 Dose: 75 mls/hr Ceftriaxone Sodium 1 gm/ (Sodium Chloride) 100 mls @ 200 mls/hr IV DAILY [facility] [place] Insulin Aspart (Novolog) 1 - 9 unit SUBQ 0800,1200,1700,2100 [place]; Protocol Last Admin: 12/14/18 08:32 Dose: Not Given Insulin Glargine (Lantus Solostar) 15 unit SUBQ QPM [facility] [place] Last Admin: 12/13/18 21:35 Dose: 15 unit Ipratropium Liberty (Atrovent) 0.5 mg INH RTQ6H [facility] [place] Last Admin: 12/14/18 08:53 Dose: 0.5 mg Magnesium Oxide (Mag Ox) 400 mg PO Q6H [facility] [place]; Protocol Stop: 12/14/18 14:01 Metoprolol Succinate (Toprol Xl) 50 mg PO DAILY [facility] [place] Last Admin: 12/14/18 07:49 Dose: 50 mg Mineral Oil (Cavilon) 1 applic TOP PRN PRN PRN Reason: Skin Care Montelukast Sodium (Singulair) 10 mg PO QPM [facility] [place] Last Admin: 12/13/18 21:35 Dose: 10 mg Morphine Sulfate (Morphine (Carpuject)) 1 mg IVP Q4HR PRN PRN Reason: PAIN Last Admin: 12/14/18 06:23 Dose: 1 mg Nystatin (Nystop) 1 applic TOP BID [facility] [place] Last Admin: 12/13/18 21:35 Dose: 1 applic Oxycodone HCl (Roxicodone) 5 mg PO Q6HR PRN PRN Reason: PAIN Last Admin: 12/14/18 07:49 Dose: 5 mg Pantoprazole Sodium (Protonix) 40 mg PO QDAC [facility] [place] Last Admin: 12/14/18 06:23 Dose: 40 mg Pravastatin Sodium (Pravachol) 40 mg PO QPM [facility] [place] Last Admin: 12/13/18 21:35 Dose: 40 mg Sodium Chloride (Normal Saline Flush 0.9%) 10 ml IVP 0100,0900,1700 [facility] [place] Last Admin: 12/14/18 08:28 Dose: 10 ml Sodium Chloride (Normal Saline Flush 0.9%) 10 ml IVP PRN PRN PRN Reason: NEEDED PER PROVIDER ORDERS Trazodone HCl (Desyrel) 25 mg PO QPM [facility] [place] Last Admin: 12/13/18 21:34 Dose: 25 mg Venlafaxine HCl (Effexor) 37.5 mg PO BID [facility] [place] Last Admin: 12/14/18 08:24 Dose: 37.5 mg Potassium Chloride [K-Tab ER] 20 meq PO DAILY 11/16/12 Furosemide 80 mg PO DAILY 10/17/16 Insulin Glargine [Lantus] 15 units SUBQ QPM 10/17/16 Pantoprazole Sodium 40 mg PO QDAC 10/17/16 Pravastatin [Pravachol] 40 mg PO QPM 10/18/16 Alendronate [Fosamax] 70 mg PO SIEGEL@0700 05/12/18 Aspirin [Adult Aspirin Regimen] 81 mg PO DAILY 05/18/18 Letrozole 2.5 mg PO DAILY 09/02/18 Albuterol Sulfate [Proair Hfa Inhaler] 2 puffs INH Q6H PRN 11/18/18 Venlafaxine HCl 37.5 mg PO BID 11/18/18 Acetaminophen 500 mg PO BID MDD 3000 12/10/18 Acetaminophen [Tylenol Extra Strength] 500 mg PO Q6HR PRN 12/10/18 Cholecalciferol (Vitamin D3) [Vitamin D3] 1,000 unit PO DAILY 12/10/18 Meloxicam 15 mg PO DAILY 12/10/18 Metoprolol Succinate [Toprol Xl] 50 mg PO DAILY 12/10/18 oxyCODONE [Roxicodone] 5 mg PO Q4HR PRN 12/10/18 traZODone [Desyrel] 25 mg PO QPM 12/10/18 Calcium Carbonate [Tums (Calcium Carbonate 500mg)] 1,000 mg PO DAILY 12/13/18 Fluticasone/Salmeterol [Advair 250-50 Diskus] 1 puffs INH BID 12/13/18 Insulin Aspart [NovoLOG] 1 - 9 unit SUBQ 0800,1200,1700,2100 12/13/18 Levofloxacin [Levaquin] 500 mg PO DAILYX3 12/13/18 Objective - Vital Signs/Intake & Output Vital Signs: Vital Signs x48h Temp Pulse Pulse Resp BP Pulse Ox 12/14/18 07:34 43 L 163 H 25 H 119/80 72 L 12/14/18 07:00 162 H 24 132/93 H 96 12/14/18 06:00 160 H 24 129/79 95 12/14/18 05:00 128 H 23 97/66 99 12/14/18 04:00 37.2 C 122 H 19 91/60 100 12/14/18 03:00 103 H 19 109/50 L 99 12/14/18 02:00 102 H 21 100/46 L 97 12/14/18 01:00 107 H 22 88/61 L 97 Intake & Output: Intake & Output 12/11/18 12/12/18 12/13/18 12/14/18 23:59 23:59 23:59 23:59 Intake Total 2310 140 Output Total 100 100 Balance 2210 40 - Objective General Appearance: positive: Mild distress Eyes Bilateral: positive: Normal inspection ENT: positive: Other (Nasal cannula in place.) Respiratory: positive: Other (Tachypnic with diminished breath sounds in the left base. Mild respiratory distress noted.) Cardiovascular: positive: Irregularly irregular, Tachycardia Abdomen: positive: Non-tender, No distention, Tenderness Skin: positive: No rash, Warm Extremities: positive: Other (+2 pedal edema in the bilateral lower extremities up to the knees.) Neurologic/Psychiatric: positive: Oriented x3 - Lab Results Fish Bones: 12/14/18 05:20 12/14/18 05:20 Other Labs: Lab Results x24hrs 12/14/18 12/14/18 12/14/18 Range/Units 07:46 05:20 05:20 WBC 16.8 H (4.8-10.8) x10^3/uL RBC 2.62 L (4.20-5.40) 10^6/uL Hgb 8.4 L (12.0-16.0) g/dL Hct 26.5 L (37.0-47.0) % MCV 101.1 H (81.0-99.0) fL MCH 32.1 H (27.0-31.0) pg MCHC 31.7 L (32.0-36.0) g/dL RDW 17.3 H (12.0-15.0) % Plt Count 322 (130-450) 10^3/uL MPV 10.2 (7.9-10.8) fL Neut # (Auto) 12.9 H (1.5-6.6) 10^3/uL Lymph # (Auto) 0.7 L (1.5-3.5) 10^3/uL Cameron # (Auto) 1.7 H (0.0-1.0) 10^3/uL Eos # (Auto) 1.1 H (0.0-0.7) 10^3/uL Baso # (Auto) 0.1 (0.0-0.1) 10^3/uL Absolute Nucleated RBC 0.02 x10^3/uL Nucleated RBC % 0.1 /100WBC Manual Slide Review Indicated WBC Morphology NORMAL APPEARANCE (NORMAL) Platelet Estimate NORMAL (130-450,000) (NORMAL) Platelet Morphology NORMAL APPEARANCE (NORMAL) RBC Morph Micro Appear 2+ HYPOCHROMASIA (NORMAL) Sodium 142 (135-145) mmol/L Potassium 4.9 (3.5-5.0) mmol/L Chloride 107 (101-111) mmol/L Carbon Dioxide 26 (21-32) mmol/L Anion Gap 9.0 (6-13) BUN 53 H (6-20) mg/dL Creatinine 1.5 H (0.4-1.0) mg/dL Estimated GFR (MDRD) 33 L (>89) Glucose 113 H (70-100) mg/dL Calcium 9.3 (8.5-10.3) mg/dL Phosphorus 3.6 (2.5-4.6) mg/dL Magnesium 1.6 L (1.7-2.8) mg/dL Nasal Screen MRSA (PCR) (NEGATIVE) Blood Type A POSITIVE Antibody Screen NEGATIVE 12/13/18 Range/Units 10:30 WBC (4.8-10.8) x10^3/uL RBC (4.20-5.40) 10^6/uL Hgb (12.0-16.0) g/dL Hct (37.0-47.0) % MCV (81.0-99.0) fL MCH (27.0-31.0) pg MCHC (32.0-36.0) g/dL RDW (12.0-15.0) % Plt Count (130-450) 10^3/uL MPV (7.9-10.8) fL Neut # (Auto) (1.5-6.6) 10^3/uL Lymph # (Auto) (1.5-3.5) 10^3/uL Cameron # (Auto) (0.0-1.0) 10^3/uL Eos # (Auto) (0.0-0.7) 10^3/uL Baso # (Auto) (0.0-0.1) 10^3/uL Absolute Nucleated RBC x10^3/uL Nucleated RBC % /100WBC Manual Slide Review WBC Morphology (NORMAL) Platelet Estimate (NORMAL) Platelet Morphology (NORMAL) RBC Morph Micro Appear (NORMAL) Sodium (135-145) mmol/L Potassium (3.5-5.0) mmol/L Chloride (101-111) mmol/L Carbon Dioxide (21-32) mmol/L Anion Gap (6-13) BUN (6-20) mg/dL Creatinine (0.4-1.0) mg/dL Estimated GFR (MDRD) (>89) Glucose (70-100) mg/dL Calcium (8.5-10.3) mg/dL Phosphorus (2.5-4.6) mg/dL Magnesium (1.7-2.8) mg/dL Nasal Screen MRSA (PCR) NEGATIVE (NEGATIVE) Blood Type Antibody Screen ABX Reporting Has patient been on IV antibiotics over the past 48 hours?: Yes Sepsis Event Note (H) - Evaluation Current Stage of Sepsis: Sepsis Possible source of Sepsis: positive: Pulmonary Confirmed Source and Organism (if known) of Sepsis: Pulmonary - Sepsis Criteria Sepsis Criteria: Recorded Temperature greater than 38.3C or Less than 36C, Recorded Heart Rate greater than 90 bpm, Recorded Respiratory Rate greater than 20, WBC count greater than 12,000 or less than 4000 Assessment/Plan - Problem List (1) Acute respiratory failure with hypoxia Impression: This is likely multifactorial in nature with a component of pneumonia/pneumonitis and a large left pleural effusion. Do not suspect pulmonary embolism as she has an IVC filter in place and last V/Q scan in November was not suggestive of a mismatch. She did have a prior CT of the chest back in November which was concerning for infiltrates in that area which may have been inflammatory or infectious in nature. Chest x-ray on admission concerning for worsening infiltrates Continues to require 4L of oxygen via nasal cannula which is stable compared to yesterday Noted - Continue Azithromycin, Ceftriaxone for gram negative, and atypical pneumonia coverage (day 2/5) - Will discontinue Vancomycin as MRSA screen is negative - Repeat chest x-ray today, will consider repeat CT of the chest if worsening infiltrates or no improvement in oxygenation - Will need to consider thoracentesis of the left pleural effusion if her oxygenation does not improve with treatment of the pneumonia - Will also hold off on further IV fluids as although her LV functions is prese rved, she does appear hypervolemic on exam and will likely required IV diuresis over the next 24 hours - Swallow evaluation as concern for aspiration - Continue oxygen for goal saturation >92% - Palliative consult today to discuss goals of care as she has been declining from a cardiopulmonary standpoint over the last few weeks to months (2) Sepsis due to pneumonia Impression: Presented with fevers, leukocytosis, tachycardia, tachypnea, worsening right upp er lobe infiltrates on chest x-ray Failed outpatient treatment with Levaquin which she was receiving for 5 days prior to admission - MRSA screen negative No longer febrile and has improving leukocytosis - Continue Azithromycin, Ceftriaxone IV (day 2) - Discontinue Vancomycin as MRSA screen negative - Although she is borderline hypotensive, I believe this is secondary to the use of Cardizem rather than sepsis (3) Atrial fibrillation with rapid ventricular response Impression: Rates were controlled over past 24 hours on home Metoprolol until early this mo rning Now rates in the 140's - suspect there may be a component of anxiety/pain driving her heart rate Not on anticoagulation due to history of subdural bleed - Continue home Metoprolol, will increase dose once blood pressure improves - Trial Cardizem IV x1 and if she becomes hypotensive then will use Amiodarone bolus - Treat underlying pain - Optimize electrolytes (4) Anemia Impression: She likely has anemia of chronic disease but her hemoglobin has been decreasing acutely Baseline is Hgb is 10-11 but currently mid 8's No signs of obvious bleeding at this time - Type and Screen today - Continue DVT prophylaxis for now - Check Fecal occult - Goal hemoglobin of 8 considering her CAD (5) Breast cancer metastasized to lung Impression: She has 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 She was previously on Letrozole/Ibrance with her last dose at the end of October. This was discontinued as she developed a left foot infection which required antibiotics. - Palliative consult today to discuss goals of care Qualifiers: Laterality: right Qualified Code(s): C50.911 - Malignant neoplasm of unspecified site of right female breast; C78.00 - Secondary malignant neoplasm of unspecified lung (6) Diabetes Impression: She is on Lantus and sliding scale. Blood glucose has been controlled. - Continue home lantus with sliding scale - CC diet once she is taking PO again Qualifiers: Diabetes mellitus type: type 2 (7) History of coronary artery disease Impression: She has a history of CAD s/p CABG. Last ECHO in November revealed preserved EF. Stable - Continue home statin/aspirin - Monitor telemetry (8) History of pulmonary embolism Impression: She had an IVC filter in place. Last V/Q scan in November was low suspicion for defect. - Heparin SC for DVT prophylaxis (9) Renal insufficiency Impression: It appears she non-oliguric acute kidney on CKD Creatinine has ranged from 1-1.5 over past few months - currently stable at 1.5 Renal function did not improve with IV hydration - Will hold off on further hydration as she appears hypervolemic on exam - Monitor renal function and urine output - If renal function declines, will obtain urine studies. Will hold off for now as this may just be renal insufficiency without acute kidney injury. (10) Pleural effusion Impression: This appears chronic in nature and her spouse tells me that she has had a thoracentesis in the past. It appears unchanged compared to prior imaging and I suspect it is likely malignant secondary to her history of breast cancer. -If her respiratory status does not improve over next 24 hours, will pursue a thoracentesis in hopes of it being therapeutic. (11) Hypertension Impression: She remains borderline hypotensive today although this may be secondary to the Cardizem she received - Continue home Metoprolol - Will use Amiodarone for rate/rhythm control if her pressures remain soft - Hold off on further fluids for the time being (12) Hyperlipidemia Impression: Stable. - Continue home statin
[2018-12-14] MEDS: FORMOTEROL FUMARATE NEB 20 MCG/2 ML INH SCH ×2 (09:17→21:24)
--- NOTE | 2018-12-14 10:29 | XRAY Report ---
Reason: Hypoxia. Cough. Procedure Date: 12/14/2018 Accession Number: [id number] / [id number] Procedure: XR - Chest 1 View X-Ray CPT Code: 46300 FULL RESULT: EXAM: CHEST RADIOGRAPHY EXAM DATE: 12/14/2018 09:47 AM. CLINICAL HISTORY: Hypoxia. Cough. COMPARISON: CHEST 1 VIEW 12/13/2018 5:59 AM. TECHNIQUE: 1 view. FINDINGS: Lungs/Pleura: Right upper lobe infiltrate appears increased. Retrocardiac infiltrate or atelectasis with moderate right effusion similar. Decreased lung volumes. No pneumothorax. Mediastinum: Post sternotomy. Stable cardiomegaly ectatic aorta Other: Right jugular line mid SVC. Left-sided Port-A-Cath lower SVC. DJD bilateral shoulders IMPRESSION: 1. Right upper lobe infiltrate increased. 2. Retrocardiac infiltrate or atelectasis moderate right effusion similar. RADIA
[2018-12-14] MEDS ORDERED: AMIODARONE 150 MG/3 ML VIAL IVP STA ×2 (10:40→20:52)
[2018-12-14] MEDS: NYSTATIN POWDER 15 GM TOP SCH ×2 (10:56→21:47)
[2018-12-14 11:21] LABS: BILIRUBIN,URINE NEGATIVE (NEGATIVE); GLUCOSE, URINE (UA) NEGATIVE (NEGATIVE); KETONES,URINE (UA) NEGATIVE (NEGATIVE); LEUKOCYTE ESTERASE, URINE NEGATIVE (NEGATIVE); NITRITE,URINE NEGATIVE (NEGATIVE); OCCULT BLOOD,URINE NEGATIVE (NEGATIVE); PROTEIN,URINE NEGATIVE (NEGATIVE); UROBILINOGEN,URINE 0.2 (NORMAL) E.U./dL (NORMAL)
[2018-12-14 11:24] LABS: CLARITY,URINE CLOUDY (CLEAR)
[2018-12-14] MEDS ORDERED: LIDOCAINE PATCH 5% TOP PRN (11:26)
[2018-12-14] MEDS ORDERED: oxyCODONE 5 MG TABLET PO PRN (11:26)
[2018-12-14 11:34] LABS: BACTERIA,URINE Rare /HPF (None Seen); RBC,URINE 0-5 /HPF (0-5); SQUAMOUS EPITHELIAL CELL,UR RARE Squamous (<= Few)
[2018-12-14 11:35] LABS: AMORPHOUS SEDIMENT,UR Few /LPF
[2018-12-14 12:01] LABS: VANCOMYCIN,RANDOM 10.3 ug/mL
--- NOTE | 2018-12-14 14:23 | CONSULTATION NOTE ---
Palliative Care Follow Up - Referral Referring Provider: Jaylon Xavier MD Time of Visit: 9:15-9:30; 11:45-12:45 Referral setting: Hospitalized patient Referral Reason: Met Breast CA with lung mets/pneumonia/fluid overload/acute resp failure - Information Sources Records reviewed: RN notes reviewed, Previous records reviewed History/Review of Systems obtained from: Patient, Family (family meeting with daughter Jacqueline and ) Exam limitations: Clinical condition (patient very drowsy; anxious; unable to track conversation either time examined her) - History of Present Illness Update Brief HPI Update: This is a 83-year-old woman with known stage IV breast cancer with mets to the lung. She has been rehospitalized with acute respiratory failure with hypoxia, sepsis due to pneumonia, atrial fib with rapid ventricular response. Palliative care admit patient on last admit, for clarification of goals and has ongoing palliative care support. [facility] with concerns regarding increasing fluid overload, had been in the ED and restarted on her Levaquin and diuretics. Her admit weight on 11/30 was 182.2, when seen her weight was 12/07 188.7. There was concern that she was having increased symptoms, and SNF MD had increased her diuretics on 12/10 as more symptomatic, but patient continued to deteriorate over the next couple days. She did today presents with a weight of 205.7. Patient does present with severe anxiety this morning, she attributes this to uncontrolled pain. They are working on getting her adequate pain control, by afternoon she was resting much more comfortably and responding well to the morphine both for her pain and dyspnea. Patient at baseline does have known anxiety disorder, and as when asked about this, reports she is quite scared. She is unable to share with me further what this means. But her daughter who is here last night, reports patient was quite anxious and also was continuing to say "help me help me help me". But could be easily r eoriented. Unfortunately she continues to decline both functionally and cognitively, she is presenting acutely today. The goals are to try and improve her respiratory status and control her pain/anxiety. Patient does not present with decision-making capacity today, though has expressed in the past is important for her not to suffer and to be comfortable. Patient is quite complex, now with her second acute hospitalization. Her pain does appear to be related to her severe left shoulder degenerative disease, with her increased fluid and lymphedema of her left arm, has had difficulty getting comfortable, as well as increasing pain and discomfort in her back. She does present with respiratory effort, continues with tachycardia, with an attempt to stablize her in the ICU. Family are wanting to discuss implications and long- term plan, patient unable to participate in conversation today, family meeting time was set for 11; 45. Social History - Living Situation Living arrangement: At home Living Situation: With spouse/s.o., With family Support System: Patient lives at home with her , and her son Reilly who has been providing some caregiving support but has per shared by sister, some underlying mental health issues. There are financial stressors, has been continues to work 4 days a week. They have not turned in the application for [facility], he does have it and has been encouraged to. Ita's daughter [place]queline [place] been a good advocate[place]. She has another daughter Gladys who lives in [place]. She has been at [facility] for rehab support since her last hospitalization. Medications/Allergies - Medications Active Medication List: Active Medications Acetaminophen (Tylenol) 650 mg PO Q6HR PRN PRN Reason: Pain 1 to 4 Last Admin: 12/13/18 21:34 Dose: 650 mg Aspirin (Ecotrin) 81 mg PO DAILY [facility] Last Admin: 12/14/18 08:25 Dose: 81 mg Azithromycin (Zithromax) 250 mg PO DAILY [facility] Last Admin: 12/14/18 08:24 Dose: 250 mg Budesonide (Pulmicort) 0.5 mg INH RTBID [facility] Last Admin: 12/14/18 08:53 Dose: 0.5 mg Formoterol Fumarate (Perforomist) 20 mcg INH RTBID [facility] Last Admin: 12/14/18 09:17 Dose: Not Given Heparin Sodium (Beef Lung) () 30 - 50 unit IVP PRN PRN PRN Reason: Central Line Protocol (<24 hr) Heparin Sodium (Porcine) () 5,000 unit SUBQ BID [facility] Last Admin: 12/14/18 08:25 Dose: 5,000 unit Lactated Ringer's (Lr) 1,000 mls @ 75 mls/hr IV .[id number] [facility] Last Admin: 12/13/18 21:37 Dose: 75 mls/hr Ceftriaxone Sodium 1 gm/ (Sodium Chloride) 100 mls @ 200 mls/hr IV DAILY [facility] Last Infusion: 12/14/18 10:15 Dose: Infused Insulin Aspart (Novolog) 1 - 9 unit SUBQ 0800,1200,1700,2100 [facility]; Protocol Last Admin: 12/14/18 12:29 Dose: Not Given Insulin Glargine (Lantus Solostar) 15 unit SUBQ QPM [facility] Last Admin: 12/13/18 21:35 Dose: 15 unit Ipratropium [place] (Atrovent) 0.5 mg INH RTQ6H [facility] Last Admin: 12/14/18 08:53 Dose: 0.5 mg Lidocaine (Lidoderm Patch) 1 patch TOP DAILY PRN PRN Reason: PAIN Metoprolol Succinate (Toprol Xl) 50 mg PO DAILY [facility] Last Admin: 12/14/18 07:49 Dose: 50 mg Mineral Oil (Cavilon) 1 applic TOP PRN PRN PRN Reason: Skin Care Montelukast Sodium (Singulair) 10 mg PO QPM [facility] Last Admin: 12/13/18 21:35 Dose: 10 mg Morphine Sulfate (Morphine (Carpuject)) 2 mg IVP Q3HR PRN PRN Reason: PAIN Last Admin: 12/14/18 10:40 Dose: 2 mg Nystatin (Nystop) 1 applic TOP BID [facility] Last Admin: 12/14/18 10:56 Dose: 1 applic Oxycodone HCl (Roxicodone) 7.5 mg PO Q4HR PRN PRN Reason: PAIN Pantoprazole Sodium (Protonix) 40 mg PO QDAC [facility] Last Admin: 12/14/18 06:23 Dose: 40 mg Pravastatin Sodium (Pravachol) 40 mg PO QPM [facility] Last Admin: 12/13/18 21:35 Dose: 40 mg Sodium Chloride (Normal Saline Flush 0.9%) 10 ml IVP 0100,0900,1700 [facility] Last Admin: 12/14/18 08:28 Dose: 10 ml Sodium Chloride (Normal Saline Flush 0.9%) 10 ml IVP PRN PRN PRN Reason: NEEDED PER PROVIDER ORDERS Trazodone HCl (Desyrel) 25 mg PO QPM [facility] Last Admin: 12/13/18 21:34 Dose: 25 mg Venlafaxine HCl (Effexor) 37.5 mg PO BID [facility] Last Admin: 12/14/18 08:24 Dose: 37.5 mg Potassium Chloride [K-Tab ER] 20 meq PO DAILY 11/16/12 Furosemide 80 mg PO DAILY 10/17/16 Insulin Glargine [Lantus] 15 units SUBQ QPM 10/17/16 Pantoprazole Sodium 40 mg PO QDAC 10/17/16 Pravastatin [Pravachol] 40 mg PO QPM 10/18/16 Alendronate [Fosamax] 70 mg PO SIEGEL@0700 05/12/18 Aspirin [Adult Aspirin Regimen] 81 mg PO DAILY 05/18/18 Letrozole 2.5 mg PO DAILY 09/02/18 Albuterol Sulfate [Proair Hfa Inhaler] 2 puffs INH Q6H PRN 11/18/18 Venlafaxine HCl 37.5 mg PO BID 11/18/18 Acetaminophen 500 mg PO BID MDD 3000 12/10/18 Acetaminophen [Tylenol Extra Strength] 500 mg PO Q6HR PRN 12/10/18 Cholecalciferol (Vitamin D3) [Vitamin D3] 1,000 unit PO DAILY 12/10/18 Meloxicam 15 mg PO DAILY 12/10/18 Metoprolol Succinate [Toprol Xl] 50 mg PO DAILY 12/10/18 oxyCODONE [Roxicodone] 5 mg PO Q4HR PRN 12/10/18 traZODone [Desyrel] 25 mg PO QPM 12/10/18 Calcium Carbonate [Tums (Calcium Carbonate 500mg)] 1,000 mg PO DAILY 12/13/18 Fluticasone/Salmeterol [Advair 250-50 Diskus] 1 puffs INH BID 12/13/18 Insulin Aspart [NovoLOG] 1 - 9 unit SUBQ 0800,1200,1700,2100 12/13/18 Levofloxacin [Levaquin] 500 mg PO DAILYX3 12/13/18 - Allergies Allergies/Adverse Reactions: Allergies Allergy/AdvReac Type Severity Reaction Status Date / Time Sulfa (Sulfonamide Allergy Severe Hives Verified 11/18/18 14:16 Antibiotics) adhesive Allergy Mild Rash Verified 11/18/18 14:16 Penicillins Allergy Hives Verified 11/18/18 15:00 Review of Systems - Constitutional Constitutional: reports: Fatigue, Weight gain - Eyes Eyes: reports: Vision loss - Ears, Nose & Throat Ears, Nose & Throat: reports: Hearing loss, Dry mouth - Cardiovascular Cardiovascular: reports: Irregular heart rate, Edema, Exertional dyspnea, Decr. exercise tolerance, Orthopnea - Respiratory Respiratory: reports: Orthopnea, SOB at rest, SOB with exertion - Gastrointestinal Gastrointestinal: reports: Other (currently NPO waiting on ST patient had been choking earlier) - Genitourinary Genitourinary: reports: Other (has Wick catheter) - Musculoskeletal Musculoskeletal: reports: Muscle pain, Back pain, Muscle aches, Stiffness, Limited range of motion, Muscle weakness, Joint pain (left sholder), Joint swelling, Assistive devices (had been ambulating a few feet with walker and PT support), Transfer issues (patient very fearful of falling; needs cueing with transfers) - Integumentary Integumentary: reports: Dryness, Nail changes - Neurological Neurological: reports: General weakness, Memory problems - Psychiatric Psychiatric: reports: Depression, Anxiety - Endocrine Endocrine: reports: Diabetes type 2 - Hematologic/Lymphatic Hematologic/Lymphatic: reports: Anemia, Recurrent infections - All Other Systems All Other Systems: reports: Other (limited ROS with memory issues) Physical Exam - Vital Signs Vital Signs: Vital Signs x48h Pulse Pulse Pulse Resp BP BP Pulse Ox 12/14/18 14:00 118 H 22 97/72 98 12/14/18 13:00 105 H 20 93/43 L 92 12/14/18 12:00 115 H 20 96/46 L 99 12/14/18 11:45 127 H 73/52 L 12/14/18 11:00 127 H 21 88/41 L 97 12/14/18 10:00 122 H 20 104/58 L 97 12/14/18 09:33 128 H 95/66 12/14/18 09:29 118 H 110/83 H 12/14/18 09:27 124 H 26 H 104/64 93 12/14/18 09:23 163 H 104/64 104/64 12/14/18 09:00 161 H 162 H 23 134/112 H 100 12/14/18 08:53 134 H 26 H 12/14/18 07:34 43 L 163 H 25 H 119/80 72 L 12/14/18 07:00 162 H 24 132/93 H 96 - Physical Exam General Appearance: positive: Mild distress, Anxious, Lethargic Eyes Bilateral: positive: Normal inspection ENT: positive: Dry mucous membranes. negative: Pharyngeal erythema, Oral lesions Neck: positive: No JVD Cardiovascular: positive: Irregularly irregular, Tachycardia Respiratory: positive: Diminished in bases, Rhonchi Abdomen: positive: Soft, Distended Skin: positive: Pallor, Dryness Extremities: positive: Pedal edema, Other (severe lymphadema left arm; right arm with mod-severe edema) Neurologic/Psychiatric: positive: Disoriented to time, Weakness, Slurred/abnml speech, Depressed mood/affect, Flat affect Palliative Care - POLST Patient has POLST: Yes POLST Status: DNR, Selective Treatment Pain: Pain worsening, Location (see HPI) Tiredness/Fatigue: Severe (7-10) Drowsiness/Sedation: Severe (7-10) Nausea: None Depression: Moderate (4-6) Anxiety: Severe (7-10) Dyspnea: Moderate (4-6) Anorexia: Moderate (4-6) Sleep: Sleeps poorly Feelings of wellbeing/Perceived Quality of Life: Poor, Worsening Performance Status: Patient had made some improvements with rehab over at the SNF, though the last 2448 hrs. she has been bedbound and quite weak. She was not back to her baseline, at home which was ambulating short distances, but able to wheelchair walk and at least transfer herself to the bathroom independently. She needs total assist with her ADLs currently, I would put her at a PPS of 40% - Palliative Care Discussion: When asked patient her understanding of her illness, at this point she does understand she is back in the hospital and is not doing well. She fades in and out, and does present with anxiety. She is able to tell me she is "scared". But unable to engage in any meaningful conversation regarding goals of care. I did meet with her Ish and daughter Jacqueline. We did review patient's ongoing decline, her current acute state, she does present as a failure to thrive. Did agree awaiting the next couple days to see if there is any improvement, but they did want to talk about a "bigger picture plan". We did discuss the role of hospice, hospice benefit in the context that does not include [facility] care, there is still needs to be a primary caregiver. There is concern about her needing to work, and the son most likely not being able to manage that intensity of hands-on care. Daughter Jacqueline would be able to take some time off, but not for extended period of time. Patient has up to this point in time, been somewhat unrealistic and unable to deal with her ongoing decline. She is been expressing she is getting more tired, and in our conversations regarding POLST has been quite clear no heroic measures. We discussed the alternative at discharge is transitioning back to SNF, unclear if patient will be at that point appropriate for rehab support. We did discuss goals of care for her, they want her to be comfortable, not to pr olong suffering, but also want her to be able to participate in the conversation. Encouraged to complete [facility] application, in that this point in time would not be able to afford placement or caregivers which would impact ability to deliver hospice care in the home or in an alternative setting. Counseled even if patient did return to care SNF with rehab goals, given her severity of her illness, would be facing these decisions in the near future again as well. Plan at this point, is to wait and see how patient does over the next 24 to 48 hours, hoping for the best, but also prepared if she were to continue declined. I did reach out to [facility], they do not currently have any openings. Results - Lab Results Lab results reviewed: Yes Fish Bones: 12/14/18 05:20 12/14/18 05:20 Lab and Imaging Results: Lab Results x24hrs 12/14/18 12/14/18 12/14/18 Range/Units 11:45 10:58 07:46 WBC (4.8-10.8) x10^3/uL RBC (4.20-5.40) 10^6/uL Hgb (12.0-16.0) g/dL Hct (37.0-47.0) % MCV (81.0-99.0) fL MCH (27.0-31.0) pg MCHC (32.0-36.0) g/dL RDW (12.0-15.0) % Plt Count (130-450) 10^3/uL MPV (7.9-10.8) fL Neut # (Auto) (1.5-6.6) 10^3/uL Lymph # (Auto) (1.5-3.5) 10^3/uL [place] # (Auto) (0.0-1.0) 10^3/uL Eos # (Auto) (0.0-0.7) 10^3/uL Baso # (Auto) (0.0-0.1) 10^3/uL Absolute Nucleated RBC x10^3/uL Nucleated RBC % /100WBC Manual Slide Review WBC Morphology (NORMAL) Platelet Estimate (NORMAL) Platelet Morphology (NORMAL) RBC Morph Micro Appear (NORMAL) Sodium (135-145) mmol/L Potassium (3.5-5.0) mmol/L Chloride (101-111) mmol/L Carbon Dioxide (21-32) mmol/L Anion Gap (6-13) BUN (6-20) mg/dL Creatinine (0.4-1.0) mg/dL Estimated GFR (MDRD) (>89) Glucose (70-100) mg/dL Calcium (8.5-10.3) mg/dL Phosphorus (2.5-4.6) mg/dL Magnesium (1.7-2.8) mg/dL Urine Color YELLOW Urine Clarity CLOUDY (CLEAR) Urine pH 5.0 (5.0-7.5) PH Ur Specific [place] 1.015 (1.002-1.030) Urine Protein NEGATIVE (NEGATIVE) mg/dL Urine Glucose (UA) NEGATIVE (NEGATIVE) mg/dL Urine Ketones NEGATIVE (NEGATIVE) mg/dL Urine Occult Blood NEGATIVE (NEGATIVE) Urine Nitrite NEGATIVE (NEGATIVE) Urine Bilirubin NEGATIVE (NEGATIVE) Urine Urobilinogen 0.2 (NORMAL) (NORMAL) E.U./dL Ur Leukocyte Esterase NEGATIVE (NEGATIVE) Urine RBC 0-5 (0-5) /HPF Urine WBC 0-3 (0-5) /HPF Ur Squamous Epith Cells RARE Squamous (<= Few) Amorphous Sediment Few /LPF Urine Bacteria Rare (None Seen) /HPF Ur Microscopic Review INDICATED Urine Culture Comments NOT INDICATED Last Dose Date UNK Last Dose Time UNK Random Vancomycin 10.3 ug/mL Blood Type A POSITIVE Antibody Screen NEGATIVE 12/14/18 12/14/18 Range/Units 05:20 05:20 WBC 16.8 H (4.8-10.8) x10^3/uL RBC 2.62 L (4.20-5.40) 10^6/uL Hgb 8.4 L (12.0-16.0) g/dL Hct 26.5 L (37.0-47.0) % MCV 101.1 H (81.0-99.0) fL MCH 32.1 H (27.0-31.0) pg MCHC 31.7 L (32.0-36.0) g/dL RDW 17.3 H (12.0-15.0) % Plt Count 322 (130-450) 10^3/uL MPV 10.2 (7.9-10.8) fL Neut # (Auto) 12.9 H (1.5-6.6) 10^3/uL Lymph # (Auto) 0.7 L (1.5-3.5) 10^3/uL [place] # (Auto) 1.7 H (0.0-1.0) 10^3/uL Eos # (Auto) 1.1 H (0.0-0.7) 10^3/uL Baso # (Auto) 0.1 (0.0-0.1) 10^3/uL Absolute Nucleated RBC 0.02 x10^3/uL Nucleated RBC % 0.1 /100WBC Manual Slide Review Indicated WBC Morphology NORMAL APPEARANCE (NORMAL) Platelet Estimate NORMAL (130-450,000) (NORMAL) Platelet Morphology NORMAL APPEARANCE (NORMAL) RBC Morph Micro Appear 2+ HYPOCHROMASIA (NORMAL) Sodium 142 (135-145) mmol/L Potassium 4.9 (3.5-5.0) mmol/L Chloride 107 (101-111) mmol/L Carbon Dioxide 26 (21-32) mmol/L Anion Gap 9.0 (6-13) BUN 53 H (6-20) mg/dL Creatinine 1.5 H (0.4-1.0) mg/dL Estimated GFR (MDRD) 33 L (>89) Glucose 113 H (70-100) mg/dL Calcium 9.3 (8.5-10.3) mg/dL Phosphorus 3.6 (2.5-4.6) mg/dL Magnesium 1.6 L (1.7-2.8) mg/dL Urine Color Urine Clarity (CLEAR) Urine pH (5.0-7.5) PH Ur Specific [place] (1.002-1.030) Urine Protein (NEGATIVE) mg/dL Urine Glucose (UA) (NEGATIVE) mg/dL Urine Ketones (NEGATIVE) mg/dL Urine Occult Blood (NEGATIVE) Urine Nitrite (NEGATIVE) Urine Bilirubin (NEGATIVE) Urine Urobilinogen (NORMAL) E.U./dL Ur Leukocyte Esterase (NEGATIVE) Urine RBC (0-5) /HPF Urine WBC (0-5) /HPF Ur Squamous Epith Cells (<= Few) Amorphous Sediment /LPF Urine Bacteria (None Seen) /HPF Ur Microscopic Review Urine Culture Comments Last Dose Date Last Dose Time Random Vancomycin ug/mL Blood Type Antibody Screen Impression and Recommendations - Palliative Care Impression: This is an 83-year-old woman with metastatic breast cancer to the lung, complicated cardiac status with exacerbation of atrial fib with RVR, presenting with acute respiratory failure with hypoxia and sepsis due to pneumonia. She does appear quite frail, with high symptom burden, and concern for ongoing functional and cognitive decline. Palliative care providing support regarding advanced care planning and anticipatory guidance. Recommendations/Counseling Done: 1. Acute on chronic left shoulder/arm pain/back pain. This is multifactorial. Patient does have known underlying degenerative changes in her left shoulder, as well as now severe lymphedema and swelling, bedbound status and limited mobility. Patient's anxiety is exacerbated by patient's perception of pain, would recommend continuing the morphine in response to patient's distress both respiratory and for pain management. 2. Anxiety. Patient has long-term general anxiety disorder, has been on Effexor 37.5 mg twice daily. Patient continues to decline and are increasing in distress, may benefit from small doses of lorazepam with a goal for comfort and relief of suffering. 3. Advanced care planning. Patient does present with both cognitive and funct ional decline, now with second acute hospitalization. Original goals had been to improve patient's functional status so she would be able to transition home, given it would be important for patient to be somewhat independent to be managed. Conversation and counseling provided regarding initiation of long-term goal SNF versus hospice. Family is in agreement, as well as patient's expressed wishes previously, that if patient were transitioning or to acutely decline, the goal would be to focus on comfort and not to prolong her suffering. Palliative care to continue provide support, will follow up with patient tomorrow if she is able to participate in conversation regarding her goals of care, did speak with it may default to his decision if she presents with out decision-making capacity or unable to participate. Time Spent: 75 minutes with greater than 50% of this done in counseling regarding family meeting, goals of care, and anticipatory guidance as well as coordination of care with [facility]DC[facility] PROVIDER/hospitalist
[2018-12-14] MEDS: LACTATED RINGERS 1,000 ML IV SCH (15:38)
[2018-12-14] MEDS ORDERED: SODIUM CHLORIDE 0.9% 500 ML IV ONE (16:54)
[2018-12-14] MEDS ORDERED: INSULIN GLARGINE 300 UNIT/3 ML PEN SUBQ SCH (21:00)
[2018-12-14] MEDS: MONTELUKAST 10 MG TABLET PO SCH (21:32)
[2018-12-14] MEDS: PRAVASTATIN 40 MG TABLET PO SCH (21:34)
[2018-12-14] MEDS: traZODone 50 MG TABLET PO SCH (21:49)
[2018-12-14] MEDS ORDERED: DIGOXIN 500 MCG/2 ML AMP IVP STA (23:45)
[2018-12-15] MEDS ORDERED: LORazepam 2 MG/ML VIAL IVP STA (02:28)
[2018-12-15] MEDS: MORPHINE 2 MG/ML CARPUJECT IVP PRN ×8 (02:30→23:58)
[2018-12-15] MEDS ORDERED: HALOPERIDOL 5 MG/ML VIAL IVP ONE (03:00)
[2018-12-15] MEDS ORDERED: LORazepam 2 MG/ML VIAL IVP PRN (04:54)
[2018-12-15] MEDS ORDERED: GLYCOPYRROLATE 1 MG/5 ML VIAL SUBQ PRN (04:54)
[2018-12-15] MEDS: SODIUM CHLORIDE FLUSH 0.9% 10 ML SYRINGE IVP SCH ×3 (05:05→08:38)
[2018-12-15 05:10] LABS: BASOPHILS % (AUTO) 0.2 %; EOSINOPHILS # (AUTO) 0.5 10^3/uL (0.0-0.7); EOSINOPHILS % (AUTO) 2.8 %; HGB - HEMOGLOBIN 7.8 g/dL (12.0-16.0); LYMPHOCYTES # (AUTO) 0.3 10^3/uL (1.5-3.5); LYMPHOCYTES % (AUTO) 1.8 %; MEAN CORPUSCULAR HEMOGLOBIN 31.1 pg (27.0-31.0); MEAN CORPUSCULAR HGB CONC 30.8 g/dL (32.0-36.0); MEAN CORPUSCULAR VOLUME 100.8 fL (81.0-99.0); MEAN PLATELET VOLUME 10.5 fL (7.9-10.8); MONOCYTES % (AUTO) 11.7 %; NEUTROPHILS # (AUTO) 14.2 10^3/uL (1.5-6.6); NEUTROPHILS % (AUTO) 81.8 %; PLT - PLATELET COUNT 332 10^3/uL (130-450); RED BLOOD COUNT 2.51 10^6/uL (4.20-5.40); RED CELL DISTRIBUTION WIDTH 17.5 % (12.0-15.0); WHITE BLOOD COUNT 17.4 x10^3/uL (4.8-10.8)
[2018-12-15 05:25] LABS: CALCIUM 9.2 mg/dL (8.5-10.3); CREATININE 1.2 mg/dL (0.4-1.0); PHOSPHORUS 3.7 mg/dL (2.5-4.6)
--- NOTE | 2018-12-15 05:34 | PROVIDER PROGRESS NOTE ---
Bilingual Speech Therapist Note - Bilingual Speech Therapist Note Bilingual Speech Therapist Note: I was called to patient's room by the nurse because the patient was agitated crying out "help me, help me!" Trying to pull off her oxygen mask, trying to get out of bed. At this time her heart rate fluctuated between 140's to 160's. Her oxygenation was dropping into the 70's and her SBP was 80's. Patient looked ashen, her extremities cool to touch. There was no purposeful response to verbal or tactile stimuli. She had received amiodarone 150mg IV earlier in the shift. She was then given digoxin 250mg IV with no lasting effect to her heart rate. At the time of her acute agitation and discomfort, I contacted her family. Specifically her and daughter and explained the above findings. I was seeking direction on how they wished to proceed with Ita's care. They had a meeting with Palliative Care earlier on 12/14/18 and were going to give consideration to the different options on how they wished to proceed. Palliative was going to come back on 12/15/18 with the hopes of discussing with the patient. Her and daughter came to the hospital between 4-5 am today after my call to them. Prior to this, patient had been administered ativan 0.5mg IV and was able to calm down. At bedside I explained that an attempt to address her pain/ discomfort/ agitati on would affect her ability to be alert and awake because the medications will be sedating as was evidenced before us at the moment. They were in agreement that comfort was of priority at this point. They requested to make her comfort care. I explained that we would not be seeking any active/ curative measures with comfort care. So I was going to discontinue any active medications like antibiotics, antiarrythmic agents, insulin and discontinue telemetry. I explained that we would use medications like morphine for pain and air hunger, ativan and or haldol for agitation or anxiety, maintain oxygen for comfort. The expressed understanding and asked that I proceed. Orders have been placed. We will consult hospice to help facilitate transition to hospice.
[2018-12-15] MEDS ORDERED: DIGOXIN 500 MCG/2 ML AMP IVP SCH (05:45)
[2018-12-15 05:46] LABS: PLATELET ESTIMATE, MANUAL NORMAL (130-450,000) (NORMAL); PLATELET MORPHOLOGY NORMAL APPEARANCE (NORMAL)
[2018-12-15] MEDS: HALOPERIDOL 5 MG/ML VIAL SUBQ PRN ×3 (06:03→21:08)
[2018-12-15] MEDS: LORazepam 2 MG/ML VIAL IVP PRN ×6 (11:19→21:51)
[2018-12-15] MEDS ORDERED: LORazepam 2 MG/ML VIAL ONE (11:25)
--- NOTE | 2018-12-15 11:32 | PROVIDER PROGRESS NOTE ---
Subjective - Prog Note Date Prog Note Date: 12/15/18 Prog Note Time: 16:54 - Subjective Subjective: she had been crying out this morning. Freight Claim Investigator spoke to family who now feels it is time to transition to comfort measures. They had been really hoping for a miracle before and had delayed transitioning to Hospice. Since this am, she has been comfort measures. I increased frequency of meds from q3-4 to q1-2. Son, daughter, 2 grandkids and at the bedside now, in [place]. Current Medications - Current Medications Current Medications: Active Medications Glycopyrrolate (Robinul) 0.2 mg SUBQ Q4H PRN PRN Reason: Excessive secretions Last Admin: 12/15/18 10:34 Dose: 0.2 mg Haloperidol (Haldol Inj) 2 mg SUBQ Q4H PRN PRN Reason: Agitation Last Admin: 12/15/18 10:30 Dose: 2 mg Lidocaine (Lidoderm Patch) 1 patch TOP DAILY PRN PRN Reason: PAIN Last Admin: 12/14/18 15:49 Dose: 1 patch Lorazepam (Ativan Inj (Vial)) 1 mg IVP Q1H PRN PRN Reason: Anxiety/Agitation Last Admin: 12/15/18 15:43 Dose: 1 mg Morphine Sulfate (Morphine (Carpuject)) 2 mg IVP Q2H PRN PRN Reason: PAIN Last Admin: 12/15/18 16:50 Dose: 2 mg Oxycodone HCl (Roxicodone) 7.5 mg PO Q4HR PRN PRN Reason: PAIN Last Admin: 12/14/18 22:58 Dose: 7.5 mg Sodium Chloride (Normal Saline Flush 0.9%) 10 ml IVP 0100,0900,1700 [place] Last Admin: 12/15/18 08:38 Dose: 10 ml Potassium Chloride [K-Tab ER] 20 meq PO DAILY 11/16/12 Furosemide 80 mg PO DAILY 10/17/16 Insulin Glargine [Lantus] 15 units SUBQ QPM 10/17/16 Pantoprazole Sodium 40 mg PO QDAC 10/17/16 Pravastatin [Pravachol] 40 mg PO QPM 10/18/16 Alendronate [Fosamax] 70 mg PO SIEGEL@0700 05/12/18 Aspirin [Adult Aspirin Regimen] 81 mg PO DAILY 05/18/18 Letrozole 2.5 mg PO DAILY 09/02/18 Albuterol Sulfate [Proair Hfa Inhaler] 2 puffs INH Q6H PRN 11/18/18 Venlafaxine HCl 37.5 mg PO BID 11/18/18 Acetaminophen 500 mg PO BID MDD 3000 12/10/18 Acetaminophen [Tylenol Extra Strength] 500 mg PO Q6HR PRN 12/10/18 Cholecalciferol (Vitamin D3) [Vitamin D3] 1,000 unit PO DAILY 12/10/18 Meloxicam 15 mg PO DAILY 12/10/18 Metoprolol Succinate [Toprol Xl] 50 mg PO DAILY 12/10/18 oxyCODONE [Roxicodone] 5 mg PO Q4HR PRN 12/10/18 traZODone [Desyrel] 25 mg PO QPM 12/10/18 Calcium Carbonate [Tums (Calcium Carbonate 500mg)] 1,000 mg PO DAILY 12/13/18 Fluticasone/Salmeterol [Advair 250-50 Diskus] 1 puffs INH BID 12/13/18 Insulin Aspart [NovoLOG] 1 - 9 unit SUBQ 0800,1200,1700,2100 12/13/18 Levofloxacin [Levaquin] 500 mg PO DAILYX3 12/13/18 Objective - Vital Signs/Intake & Output Reviewed Vital Signs: Yes Vital Signs: Vital Signs x48h Temp Pulse Resp 12/15/18 08:21 37 C 160 H 16 Intake & Output: Intake & Output 12/12/18 12/13/18 12/14/18 12/15/18 23:59 23:59 23:59 23:59 Intake Total 2310 1892.5 Output Total 100 1040 230 Balance 2210 852.5 -230 - Objective General Appearance: positive: Lethargic Eyes Bilateral: positive: PERRL Neck: positive: No JVD. negative: Stiff neck, Carotid bruit Respiratory: positive: Chest non-tender. negative: Wheezes, Rales, Rhonchi Cardiovascular: positive: Regular rate & rhythm, Systolic murmur. negative: Gallop/S4 Abdomen: positive: Non-tender, No organomegaly, Nml bowel sounds, No distention Skin: positive: Warm, Dry Extremities: positive: Pedal edema, Other (left forearm with lymphedema) Neurologic/Psychiatric: positive: Motor nml, Disoriented to person, Disoriented to place, Disoriented to time - Lab Results Fish Bones: 12/15/18 04:45 12/15/18 04:45 Other Labs: Lab Results x24hrs 12/15/18 12/15/18 12/14/18 Range/Units 04:45 04:45 20:32 WBC 17.4 H (4.8-10.8) x10^3/uL RBC 2.51 L (4.20-5.40) 10^6/uL Hgb 7.8 L (12.0-16.0) g/dL Hct 25.3 L (37.0-47.0) % MCV 100.8 H (81.0-99.0) fL MCH 31.1 H (27.0-31.0) pg MCHC 30.8 L (32.0-36.0) g/dL RDW 17.5 H (12.0-15.0) % Plt Count 332 (130-450) 10^3/uL MPV 10.5 (7.9-10.8) fL Neut # (Auto) 14.2 H (1.5-6.6) 10^3/uL Lymph # (Auto) 0.3 L (1.5-3.5) 10^3/uL [place] # (Auto) 2.0 H (0.0-1.0) 10^3/uL Eos # (Auto) 0.5 (0.0-0.7) 10^3/uL Baso # (Auto) 0.0 (0.0-0.1) 10^3/uL Absolute Nucleated RBC 0.02 x10^3/uL Nucleated RBC % 0.1 /100WBC Manual Slide Review Indicated WBC Morphology NORMAL APPEARANCE (NORMAL) Platelet Estimate NORMAL (130-450,000) (NORMAL) Platelet Morphology NORMAL APPEARANCE (NORMAL) RBC Morph Micro Appear 2+ HYPOCHROMASIA (NORMAL) Sodium 143 (135-145) mmol/L Potassium 4.8 (3.5-5.0) mmol/L Chloride 108 (101-111) mmol/L Carbon Dioxide 26 (21-32) mmol/L Anion Gap 9.0 (6-13) BUN 53 H (6-20) mg/dL Creatinine 1.2 H (0.4-1.0) mg/dL Estimated GFR (MDRD) 43 L (>89) Glucose 78 (70-100) mg/dL POC Whole Bld Glucose 81 (70 - 100) mg/dL Calcium 9.2 (8.5-10.3) mg/dL Phosphorus 3.7 (2.5-4.6) mg/dL Magnesium 2.0 (1.7-2.8) mg/dL Urine RBC (0-5) /HPF Urine WBC (0-5) /HPF Ur Squamous Epith Cells (<= Few) Amorphous Sediment /LPF Urine Bacteria (None Seen) /HPF Urine Culture Comments Last Dose Date Last Dose Time Random Vancomycin ug/mL 12/14/18 12/14/18 12/14/18 Range/Units 16:44 11:53 11:45 WBC (4.8-10.8) x10^3/uL RBC (4.20-5.40) 10^6/uL Hgb (12.0-16.0) g/dL Hct (37.0-47.0) % MCV (81.0-99.0) fL MCH (27.0-31.0) pg MCHC (32.0-36.0) g/dL RDW (12.0-15.0) % Plt Count (130-450) 10^3/uL MPV (7.9-10.8) fL Neut # (Auto) (1.5-6.6) 10^3/uL Lymph # (Auto) (1.5-3.5) 10^3/uL [place] # (Auto) (0.0-1.0) 10^3/uL Eos # (Auto) (0.0-0.7) 10^3/uL Baso # (Auto) (0.0-0.1) 10^3/uL Absolute Nucleated RBC x10^3/uL Nucleated RBC % /100WBC Manual Slide Review WBC Morphology (NORMAL) Platelet Estimate (NORMAL) Platelet Morphology (NORMAL) RBC Morph Micro Appear (NORMAL) Sodium (135-145) mmol/L Potassium (3.5-5.0) mmol/L Chloride (101-111) mmol/L Carbon Dioxide (21-32) mmol/L Anion Gap (6-13) BUN (6-20) mg/dL Creatinine (0.4-1.0) mg/dL Estimated GFR (MDRD) (>89) Glucose (70-100) mg/dL POC Whole Bld Glucose 96 97 (70 - 100) mg/dL Calcium (8.5-10.3) mg/dL Phosphorus (2.5-4.6) mg/dL Magnesium (1.7-2.8) mg/dL Urine RBC (0-5) /HPF Urine WBC (0-5) /HPF Ur Squamous Epith Cells (<= Few) Amorphous Sediment /LPF Urine Bacteria (None Seen) /HPF Urine Culture Comments Last Dose Date UNK Last Dose Time UNK Random Vancomycin 10.3 ug/mL 12/14/18 12/14/18 12/13/18 Range/Units 10:58 07:36 21:32 WBC (4.8-10.8) x10^3/uL RBC (4.20-5.40) 10^6/uL Hgb (12.0-16.0) g/dL Hct (37.0-47.0) % MCV (81.0-99.0) fL MCH (27.0-31.0) pg MCHC (32.0-36.0) g/dL RDW (12.0-15.0) % Plt Count (130-450) 10^3/uL MPV (7.9-10.8) fL Neut # (Auto) (1.5-6.6) 10^3/uL Lymph # (Auto) (1.5-3.5) 10^3/uL [place] # (Auto) (0.0-1.0) 10^3/uL Eos # (Auto) (0.0-0.7) 10^3/uL Baso # (Auto) (0.0-0.1) 10^3/uL Absolute Nucleated RBC x10^3/uL Nucleated RBC % /100WBC Manual Slide Review WBC Morphology (NORMAL) Platelet Estimate (NORMAL) Platelet Morphology (NORMAL) RBC Morph Micro Appear (NORMAL) Sodium (135-145) mmol/L Potassium (3.5-5.0) mmol/L Chloride (101-111) mmol/L Carbon Dioxide (21-32) mmol/L Anion Gap (6-13) BUN (6-20) mg/dL Creatinine (0.4-1.0) mg/dL Estimated GFR (MDRD) (>89) Glucose (70-100) mg/dL POC Whole Bld Glucose 86 150 H (70 - 100) mg/dL Calcium (8.5-10.3) mg/dL Phosphorus (2.5-4.6) mg/dL Magnesium (1.7-2.8) mg/dL Urine RBC 0-5 (0-5) /HPF Urine WBC 0-3 (0-5) /HPF Ur Squamous Epith Cells RARE Squamous (<= Few) Amorphous Sediment Few /LPF Urine Bacteria Rare (None Seen) /HPF Urine Culture Comments NOT INDICATED Last Dose Date Last Dose Time Random Vancomycin ug/mL 12/13/18 12/13/18 Range/Units 16:14 10:57 WBC (4.8-10.8) x10^3/uL RBC (4.20-5.40) 10^6/uL Hgb (12.0-16.0) g/dL Hct (37.0-47.0) % MCV (81.0-99.0) fL MCH (27.0-31.0) pg MCHC (32.0-36.0) g/dL RDW (12.0-15.0) % Plt Count (130-450) 10^3/uL MPV (7.9-10.8) fL Neut # (Auto) (1.5-6.6) 10^3/uL Lymph # (Auto) (1.5-3.5) 10^3/uL [place] # (Auto) (0.0-1.0) 10^3/uL Eos # (Auto) (0.0-0.7) 10^3/uL Baso # (Auto) (0.0-0.1) 10^3/uL Absolute Nucleated RBC x10^3/uL Nucleated RBC % /100WBC Manual Slide Review WBC Morphology (NORMAL) Platelet Estimate (NORMAL) Platelet Morphology (NORMAL) RBC Morph Micro Appear (NORMAL) Sodium (135-145) mmol/L Potassium (3.5-5.0) mmol/L Chloride (101-111) mmol/L Carbon Dioxide (21-32) mmol/L Anion Gap (6-13) BUN (6-20) mg/dL Creatinine (0.4-1.0) mg/dL Estimated GFR (MDRD) (>89) Glucose (70-100) mg/dL POC Whole Bld Glucose 136 H 152 H (70 - 100) mg/dL Calcium (8.5-10.3) mg/dL Phosphorus (2.5-4.6) mg/dL Magnesium (1.7-2.8) mg/dL Urine RBC (0-5) /HPF Urine WBC (0-5) /HPF Ur Squamous Epith Cells (<= Few) Amorphous Sediment /LPF Urine Bacteria (None Seen) /HPF Urine Culture Comments Last Dose Date Last Dose Time Random Vancomycin ug/mL ABX Reporting Has patient been on IV antibiotics over the past 48 hours?: No Sepsis Event Note (H) - Evaluation Current Stage of Sepsis: Sepsis Possible source of Sepsis: positive: Pulmonary - Sepsis Criteria Sepsis Criteria: Recorded Temperature greater than 38.3C or Less than 36C, Recorded Heart Rate greater than 90 bpm, Recorded Respiratory Rate greater than 20, WBC count greater than 12,000 or less than 4000 Assessment/Plan - Problem List (1) Acute hypoxemic respiratory failure Impression: This is likely multifactorial in nature with a component of pneumo leatha/pneumonitis and a large left pleural effusion. Do not suspect pulmonary embolism as she has an IVC filter in place and last V/Q scan in November was not suggestive of a mismatch. She did have a prior CT of the chest back in November which was concerning for infiltrates in that area which may have been inflammatory or infectious in nature. Chest x-ray on admission concerning for worsening infiltrates Continues to require 4L of oxygen via nasal cannula which is stable - Azithromycin, Ceftriaxone for gram negative, and atypical pneumonia coverage (day 3/5) HAS BEEN STOPPED FOR TRANSITION TO COMFORT - discontinue Vancomycin as MRSA screen is negative - Repeat chest x-ray 12/14 has worse right infiltrate and stable effusion, again, transition to comfort - No thoracentesis now - Swallow evaluation cancelled (2) Sepsis due to pneumonia Impression: Presented with fevers, leukocytosis, tachycardia, tachypnea, worsening right upper lobe infiltrates on chest x-ray Failed outpatient treatment with Levaquin which she was receiving for 5 days prior to admission - MRSA screen negative No longer febrile and has improving leukocytosis - stop Azithromycin, Ceftriaxone IV (day 3) - Discontinued Vancomycin as MRSA screen negative (3) Atrial fibrillation with rapid ventricular response Impression: Rates were controlled over past 24 hours on home Metoprolol until early 7/8 am Now rates in the 140's - suspect there may be a component of anxiety/pain driving her heart rate Not on anticoagulation due to history of subdural bleed Continued on home Metoprolol and dose increased but that has been stopped w comfort measures. (4) Anemia Impression: She likely has anemia of chronic disease but her hemoglobin has been decreasing acutely Baseline is Hgb is 10-11 but currently mid 8's No signs of obvious bleeding at this time comfort measures so no tranfusion will be needed. 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 She was previously on Letrozole/Ibrance with her last dose at the end of October. This was discontinued as she developed a left foot infection which required antibiotics. - Palliative consult done yesterday to discuss goals of care and she moved in s ignificant direction to comfort measures that were formalized this morning as she worsened from pain, encephalopathy, anxiety. Qualifiers: Laterality: right Qualified Code(s): C50.911 - Malignant neoplasm of unspecified site of right female breast; C78.00 - Secondary malignant neoplasm of unspecified lung (6) Diabetes Impression: She was on Lantus and sliding scale. Blood glucose has been controlled. stop glucose checks and insulin Qualifiers: Diabetes mellitus type: type 2 (7) History of coronary artery disease Impression: She has a history of CAD s/p CABG. Last ECHO in November revealed preserved EF. stop telemetry and statin (8) History of pulmonary embolism Impression: She had an IVC filter in place. Last V/Q scan in November was low suspicion for defect. stop heparin for prophylaxis.
--- NOTE | 2018-12-15 16:21 | CONSULTATION NOTE ---
Palliative Care Follow Up - Referral Referring Provider: Jaylon Xavier Time of Visit: 10:45-11:15; [id number]; [id number] Referral setting: Hospitalized patient Referral Reason: Comfort Care - Information Sources Records reviewed: Previous records reviewed History/Review of Systems obtained from: Family (daughters Gladys/Jacqueline son Reilly and Ish) Exam limitations: Clinical condition (patient nonresponsive) - History of Present Illness Update Brief HPI Update: This is an 83-year-old woman with known stage IV breast cancer with mets to the lung, rehospitalized for second time with acute respiratory failure with hypoxia, sepsis due to pneumonia, and atrial fib with rapid ventricular response. Patient is continued to deteriorate, and had a significant change in condition overnight. Given goals of care, they did request to make her comfort care. They discontinued all active medications, other than comfort medications including antibiotics, antiarrhythmic agents, insulin and telemetry. They have through the day managed to settle her down, with use of frequent lorazepam and morphine, patient is resting comfortably, though is easily at the tail end of medication presenting with anxiety and some agitation. Family are doing puga at bedside, and working with the team to keep her comfortable. Family is aware it is most likely hours to days, aware that patient may imminently transition here, or may need a transition plan if lingers. Social History - Living Situation Living arrangement: At home Living Situation: With spouse/s.o., With family Support System: Patient was transferred from [facility], where she had been on a skilled stay. She usually lives at home with her and her son and her 2 dogs. Medications/Allergies - Medications Active Medication List: Active Medications Glycopyrrolate (Robinul) 0.2 mg SUBQ Q4H PRN PRN Reason: Excessive secretions Last Admin: 12/15/18 10:34 Dose: 0.2 mg Haloperidol (Haldol Inj) 2 mg SUBQ Q4H PRN PRN Reason: Agitation Last Admin: 12/15/18 10:30 Dose: 2 mg Lidocaine (Lidoderm Patch) 1 patch TOP DAILY PRN PRN Reason: PAIN Last Admin: 12/14/18 15:49 Dose: 1 patch Lorazepam (Ativan Inj (Vial)) 1 mg IVP Q1H PRN PRN Reason: Anxiety/Agitation Last Admin: 12/15/18 15:43 Dose: 1 mg Morphine Sulfate (Morphine (Carpuject)) 2 mg IVP Q2H PRN PRN Reason: PAIN Last Admin: 12/15/18 14:18 Dose: 2 mg Oxycodone HCl (Roxicodone) 7.5 mg PO Q4HR PRN PRN Reason: PAIN Last Admin: 12/14/18 22:58 Dose: 7.5 mg Sodium Chloride (Normal Saline Flush 0.9%) 10 ml IVP 0100,0900,1700 [place] Last Admin: 12/15/18 08:38 Dose: 10 ml Potassium Chloride [K-Tab ER] 20 meq PO DAILY 11/16/12 Furosemide 80 mg PO DAILY 10/17/16 Insulin Glargine [Lantus] 15 units SUBQ QPM 10/17/16 Pantoprazole Sodium 40 mg PO QDAC 10/17/16 Pravastatin [Pravachol] 40 mg PO QPM 10/18/16 Alendronate [Fosamax] 70 mg PO SIEGEL@0700 05/12/18 Aspirin [Adult Aspirin Regimen] 81 mg PO DAILY 05/18/18 Letrozole 2.5 mg PO DAILY 09/02/18 Albuterol Sulfate [Proair Hfa Inhaler] 2 puffs INH Q6H PRN 11/18/18 Venlafaxine HCl 37.5 mg PO BID 11/18/18 Acetaminophen 500 mg PO BID MDD 3000 12/10/18 Acetaminophen [Tylenol Extra Strength] 500 mg PO Q6HR PRN 12/10/18 Cholecalciferol (Vitamin D3) [Vitamin D3] 1,000 unit PO DAILY 12/10/18 Meloxicam 15 mg PO DAILY 12/10/18 Metoprolol Succinate [Toprol Xl] 50 mg PO DAILY 12/10/18 oxyCODONE [Roxicodone] 5 mg PO Q4HR PRN 12/10/18 traZODone [Desyrel] 25 mg PO QPM 12/10/18 Calcium Carbonate [Tums (Calcium Carbonate 500mg)] 1,000 mg PO DAILY 12/13/18 Fluticasone/Salmeterol [Advair 250-50 Diskus] 1 puffs INH BID 12/13/18 Insulin Aspart [NovoLOG] 1 - 9 unit SUBQ 0800,1200,1700,2100 12/13/18 Levofloxacin [Levaquin] 500 mg PO DAILYX3 12/13/18 - Allergies Allergies/Adverse Reactions: Allergies Allergy/AdvReac Type Severity Reaction Status Date / Time Sulfa (Sulfonamide Allergy Severe Hives Verified 11/18/18 14:16 Antibiotics) adhesive Allergy Mild Rash Verified 11/18/18 14:16 Penicillins Allergy Hives Verified 11/18/18 15:00 Review of Systems - Constitutional Constitutional: reports: Fatigue, Weight gain - Eyes Eyes: reports: Other (minimally responsive; opens eyes but doesn't focus) - Ears, Nose & Throat Ears, Nose & Throat: reports: Dry mouth - Cardiovascular Cardiovascular: reports: Irregular heart rate, Other (has been unstable) - Respiratory Respiratory: reports: Wheezing, SOB at rest - Gastrointestinal Gastrointestinal: reports: Abdominal distention - Genitourinary Genitourinary: reports: Incontinence (has WICK catheter) - Musculoskeletal Musculoskeletal: reports: Muscle weakness, Joint pain (known severe left shoulder pain/back pain exacerbated), Other - Integumentary Integumentary: reports: Dryness - Neurological Neurological: reports: Other (lethargic/nonresponsive) - Psychiatric Psychiatric: reports: Other (crying out with anxiety when aware/resting better w ith lorazepam) - Endocrine Endocrine: reports: Diabetes type 2 - Hematologic/Lymphatic Hematologic/Lymphatic: reports: Anemia (worsening), Recurrent infections, Other (severe lymphadema left arm) Physical Exam - Vital Signs Vital Signs: Vital Signs x48h Temp Pulse Pulse Resp BP Pulse Ox 12/15/18 15:38 36.7 C 88 16 104/60 97 12/15/18 08:21 37 C 160 H 16 - Physical Exam General Appearance: positive: Moderate distress, Anxious, Lethargic Cardiovascular: positive: Irregularly irregular, Tachycardia Respiratory: positive: Other (respiratory effort and distress) Abdomen: positive: Soft, Obese Skin: positive: Pallor, Dryness Extremities: positive: Pedal edema, Other (Upper extremeties with sweling) Neurologic/Psychiatric: positive: Other (nonresponsive) Palliative Care - POLST Patient has POLST: Yes POLST Status: DNR, Comfort Measures ( confirmed goals for comfort (will need new POLST if transfered)) Pain: Location (Patient at baseline has known fairly significant pain, most of this is related to her left shoulder degeneration, and increase in severity with increasing lymphedema and swelling. She has had increased back pain and discomfort as well as radiation through her ribs and hips. Patient is difficult to position comfortably secondary to her edema and underlying acute on chronic pain. Patient does seem to respond to the morphine, but does wear off after about 2 hours. Will be important given patient unable to express our ask for pain medication, to watch him medicate on a regular basis.) Anxiety: Severe (7-10) (Patient continues to have severe anxiety, when she is aroused out of her confused altered mental state. This is most likely m ultifactorial in origin, but patient does underlying have a generalized anxiety disorder. Patient is responding to lorazepam, again important to medicate on a regular basis. Patient reports in the past, she has always felt safe in the hospital, as the "nurses know what to do".) - Palliative Care Discussion: Met with and daughters and son on a regular basis through the day. Initially conversation did focus on with patient transition to comfort measure patient has had a rapid decline, is needing frequent IV medications, to keep her pain and anxiety managed. Patient does need active nursing support and intervention, but as she transitions may need to have a transition plan. In discussing goals of care, they do not feel like they are equipped given the severity of her symptoms, and her underlying respiratory distress to take her home with hospice. Did explore possibility of transitioning back to SNF on skilled care for comfort measures. There is some misunderstandings, but final word that I understood was that she could transition back if her symptoms were stable enough to be managed in the SNF setting for up to 10 days before private pay. There are significant financial stressors, though patient does not look like she will have a prolonged dying process. Discussed other ways to support patient in a transition process, including patient really likes baseball games, not necessarily music. They did put a baseball game on for her, they have been telling stories, she has lived quite a colorful life, they did decline historical interpreter support. They do feel comfortable with the care she is being provided, and are doing bedside puga. Counseling provided regarding anticipatory guidance as patient transitions to end of life/. Results - Lab Results Lab results reviewed: Yes Fish Bones: 12/15/18 04:45 12/15/18 04:45 Lab and Imaging Results: Lab Results x24hrs 07/02/2512/15/18 12/14/18 Range/Units 04:45 04:45 20:32 WBC 17.4 H (4.8-10.8) x10^3/uL RBC 2.51 L (4.20-5.40) 10^6/uL Hgb 7.8 L (12.0-16.0) g/dL Hct 25.3 L (37.0-47.0) % MCV 100.8 H (81.0-99.0) fL MCH 31.1 H (27.0-31.0) pg MCHC 30.8 L (32.0-36.0) g/dL RDW 17.5 H (12.0-15.0) % Plt Count 332 (130-450) 10^3/uL MPV 10.5 (7.9-10.8) fL Neut # (Auto) 14.2 H (1.5-6.6) 10^3/uL Lymph # (Auto) 0.3 L (1.5-3.5) 10^3/uL [place] # (Auto) 2.0 H (0.0-1.0) 10^3/uL Eos # (Auto) 0.5 (0.0-0.7) 10^3/uL Baso # (Auto) 0.0 (0.0-0.1) 10^3/uL Absolute Nucleated RBC 0.02 x10^3/uL Nucleated RBC % 0.1 /100WBC Manual Slide Review Indicated WBC Morphology NORMAL APPEARANCE (NORMAL) Platelet Estimate NORMAL (130-450,000) (NORMAL) Platelet Morphology NORMAL APPEARANCE (NORMAL) RBC Morph Micro Appear 2+ HYPOCHROMASIA (NORMAL) Sodium 143 (135-145) mmol/L Potassium 4.8 (3.5-5.0) mmol/L Chloride 108 (101-111) mmol/L Carbon Dioxide 26 (21-32) mmol/L Anion Gap 9.0 (6-13) BUN 53 H (6-20) mg/dL Creatinine 1.2 H (0.4-1.0) mg/dL Estimated GFR (MDRD) 43 L (>89) Glucose 78 (70-100) mg/dL POC Whole Bld Glucose 81 (70 - 100) mg/dL Calcium 9.2 (8.5-10.3) mg/dL Phosphorus 3.7 (2.5-4.6) mg/dL Magnesium 2.0 (1.7-2.8) mg/dL 12/14/18 12/14/18 12/14/18 Range/Units 16:44 11:53 07:36 WBC (4.8-10.8) x10^3/uL RBC (4.20-5.40) 10^6/uL Hgb (12.0-16.0) g/dL Hct (37.0-47.0) % MCV (81.0-99.0) fL MCH (27.0-31.0) pg MCHC (32.0-36.0) g/dL RDW (12.0-15.0) % Plt Count (130-450) 10^3/uL MPV (7.9-10.8) fL Neut # (Auto) (1.5-6.6) 10^3/uL Lymph # (Auto) (1.5-3.5) 10^3/uL [place] # (Auto) (0.0-1.0) 10^3/uL Eos # (Auto) (0.0-0.7) 10^3/uL Baso # (Auto) (0.0-0.1) 10^3/uL Absolute Nucleated RBC x10^3/uL Nucleated RBC % /100WBC Manual Slide Review WBC Morphology (NORMAL) Platelet Estimate (NORMAL) Platelet Morphology (NORMAL) RBC Morph Micro Appear (NORMAL) Sodium (135-145) mmol/L Potassium (3.5-5.0) mmol/L Chloride (101-111) mmol/L Carbon Dioxide (21-32) mmol/L Anion Gap (6-13) BUN (6-20) mg/dL Creatinine (0.4-1.0) mg/dL Estimated GFR (MDRD) (>89) Glucose (70-100) mg/dL POC Whole Bld Glucose 96 97 86 (70 - 100) mg/dL Calcium (8.5-10.3) mg/dL Phosphorus (2.5-4.6) mg/dL Magnesium (1.7-2.8) mg/dL 12/13/18 12/13/18 12/13/18 Range/Units 21:32 16:14 10:57 WBC (4.8-10.8) x10^3/uL RBC (4.20-5.40) 10^6/uL Hgb (12.0-16.0) g/dL Hct (37.0-47.0) % MCV (81.0-99.0) fL MCH (27.0-31.0) pg MCHC (32.0-36.0) g/dL RDW (12.0-15.0) % Plt Count (130-450) 10^3/uL MPV (7.9-10.8) fL Neut # (Auto) (1.5-6.6) 10^3/uL Lymph # (Auto) (1.5-3.5) 10^3/uL [place] # (Auto) (0.0-1.0) 10^3/uL Eos # (Auto) (0.0-0.7) 10^3/uL Baso # (Auto) (0.0-0.1) 10^3/uL Absolute Nucleated RBC x10^3/uL Nucleated RBC % /100WBC Manual Slide Review WBC Morphology (NORMAL) Platelet Estimate (NORMAL) Platelet Morphology (NORMAL) RBC Morph Micro Appear (NORMAL) Sodium (135-145) mmol/L Potassium (3.5-5.0) mmol/L Chloride (101-111) mmol/L Carbon Dioxide (21-32) mmol/L Anion Gap (6-13) BUN (6-20) mg/dL Creatinine (0.4-1.0) mg/dL Estimated GFR (MDRD) (>89) Glucose (70-100) mg/dL POC Whole Bld Glucose 150 H 136 H 152 H (70 - 100) mg/dL Calcium (8.5-10.3) mg/dL Phosphorus (2.5-4.6) mg/dL Magnesium (1.7-2.8) mg/dL Impression and Recommendations - Palliative Care Impression: This is an 83-year-old woman with metastatic breast cancer, acute on chronic respiratory failure, pneumonitis/pneumonia, atrial fibrillation RVR, who continues to decline overall. Patient did have an acute episode last night, given patient's severity of her symptoms, and ongoing decline, decision was made to transition her to comfort measures. Patient is being actively managed secondary to his severe respiratory distress and discomfort, palliative care providing support. Recommendations/Counseling Done: 1. Respiratory distress. Patient does present with respiratory distress which is multifactorial in origin. Patient has been transitioned to comfort measures, would recommend again frequent dosing of morphine to control her respiratory distress/effort. Patient does rest easily with adequate medications. 2. Anxiety. Patient with known underlying general anxiety disorder, has always said she would feel most safe dying in the hospital. Are using lorazepam to manage her signs or symptoms of distress, counseling provided regarding other ways to support environment for patient. 3. Advanced care planning. Patient currently needing active and frequent medications to keep patient comfortable, goal is for a comfortable transition. Family are aware patient is hours to days, in the context of patient's transition, have explored transition plan. Patient does continue to deteriorate fairly rapidly, at this point in time would cause more distress to transfer. If patient were to stabilize, could return to SNF on skilled care for comfort care up to 10 days.Family is still going to follow through with [place] [facility] application, it was not for hospital support but for possible room and board for residential and/or [facility]. Anticipatory guidance provided, at this point in time they do not want to bring her home with hospice. Time Spent: 75 minutes with greater than 50% of this done in counseling regarding anticipatory guidance, coordination of care with clinical team.
[2018-12-15] MEDS ORDERED: HALOPERIDOL 5 MG/ML VIAL IVP PRN (21:34)
[2018-12-15] MEDS ORDERED: ATROPINE 1% OPHTH DROPS 2 ML SL PRN (22:01)
[2018-12-16] MEDS: SODIUM CHLORIDE FLUSH 0.9% 10 ML SYRINGE IVP SCH ×4 (00:02→04:04)
[2018-12-16 01:00] VITALS: BP 94/65
[2018-12-16] MEDS: MORPHINE 2 MG/ML CARPUJECT IVP PRN ×3 (02:10→06:30)
[2018-12-16] MEDS: LORazepam 2 MG/ML VIAL IVP PRN ×3 (04:18→06:34)
[2018-12-16 06:41] LABS: BASOPHILS % (AUTO) 0.3 %; EOSINOPHILS # (AUTO) 0.4 10^3/uL (0.0-0.7); EOSINOPHILS % (AUTO) 2.4 %; HGB - HEMOGLOBIN 9.1 g/dL (12.0-16.0); LYMPHOCYTES # (AUTO) 0.6 10^3/uL (1.5-3.5); LYMPHOCYTES % (AUTO) 3.7 %; MEAN CORPUSCULAR HEMOGLOBIN 32.2 pg (27.0-31.0); MEAN CORPUSCULAR HGB CONC 31.1 g/dL (32.0-36.0); MEAN CORPUSCULAR VOLUME 103.5 fL (81.0-99.0); MEAN PLATELET VOLUME 10.2 fL (7.9-10.8); MONOCYTES # (AUTO) 2.2 10^3/uL (0.0-1.0); NEUTROPHILS # (AUTO) 11.3 10^3/uL (1.5-6.6); NEUTROPHILS % (AUTO) 76.8 %; PLT - PLATELET COUNT 389 10^3/uL (130-450); RED BLOOD COUNT 2.83 10^6/uL (4.20-5.40); RED CELL DISTRIBUTION WIDTH 17.7 % (12.0-15.0); WHITE BLOOD COUNT 14.7 x10^3/uL (4.8-10.8)
[2018-12-16 06:55] LABS: CALCIUM 9.2 mg/dL (8.5-10.3); CREATININE 1.4 mg/dL (0.4-1.0); MAGNESIUM 2.1 mg/dL (1.7-2.8); PHOSPHORUS 4.5 mg/dL (2.5-4.6)
[2018-12-16 07:21] LABS: PLATELET ESTIMATE, MANUAL NORMAL (130-450,000) (NORMAL); PLATELET MORPHOLOGY NORMAL APPEARANCE (NORMAL)
--- NOTE | 2018-12-16 08:01 | PROVIDER PROGRESS NOTE ---
Subjective - Prog Note Date Prog Note Date: 12/16/18 Prog Note Time: 08:30 - Subjective Subjective: family at bedside for yamil. She at 08:29 Current Medications - Current Medications Current Medications: Active Medications Atropine Sulfate (Isopto Atropine 1% Ophth Drops) 1 drops SL Q2H PRN PRN Reason: Excessive Secretions Glycopyrrolate (Robinul) 0.2 mg SUBQ Q4H PRN PRN Reason: Excessive secretions Last Admin: 12/15/18 10:34 Dose: 0.2 mg Haloperidol (Haldol Inj) 2 mg IVP Q4H PRN PRN Reason: Agitation Last Admin: 12/16/18 00:59 Dose: 2 mg Lidocaine (Lidoderm Patch) 1 patch TOP DAILY PRN PRN Reason: PAIN Last Admin: 12/14/18 15:49 Dose: 1 patch Lorazepam (Ativan Inj (Vial)) 2 mg IVP Q1H PRN PRN Reason: Anxiety/Agitation Last Admin: 12/16/18 06:34 Dose: 2 mg Morphine Sulfate (Morphine (Carpuject)) 2 mg IVP Q2H PRN PRN Reason: PAIN Last Admin: 12/16/18 06:30 Dose: 2 mg Oxycodone HCl (Roxicodone) 7.5 mg PO Q4HR PRN PRN Reason: PAIN Last Admin: 12/14/18 22:58 Dose: 7.5 mg Sodium Chloride (Normal Saline Flush 0.9%) 10 ml IVP 0100,0900,1700 [place] Last Admin: 12/16/18 04:04 Dose: 10 ml Potassium Chloride [K-Tab ER] 20 meq PO DAILY 11/16/12 Furosemide 80 mg PO DAILY 10/17/16 Insulin Glargine [Lantus] 15 units SUBQ QPM 10/17/16 Pantoprazole Sodium 40 mg PO QDAC 10/17/16 Pravastatin [Pravachol] 40 mg PO QPM 10/18/16 Alendronate [Fosamax] 70 mg PO SIEGEL@0700 05/12/18 Aspirin [Adult Aspirin Regimen] 81 mg PO DAILY 05/18/18 Letrozole 2.5 mg PO DAILY 09/02/18 Albuterol Sulfate [Proair Hfa Inhaler] 2 puffs INH Q6H PRN 11/18/18 Venlafaxine HCl 37.5 mg PO BID 11/18/18 Acetaminophen 500 mg PO BID MDD 3000 12/10/18 Acetaminophen [Tylenol Extra Strength] 500 mg PO Q6HR PRN 12/10/18 Cholecalciferol (Vitamin D3) [Vitamin D3] 1,000 unit PO DAILY 12/10/18 Meloxicam 15 mg PO DAILY 12/10/18 Metoprolol Succinate [Toprol Xl] 50 mg PO DAILY 12/10/18 oxyCODONE [Roxicodone] 5 mg PO Q4HR PRN 12/10/18 traZODone [Desyrel] 25 mg PO QPM 12/10/18 Calcium Carbonate [Tums (Calcium Carbonate 500mg)] 1,000 mg PO DAILY 12/13/18 Fluticasone/Salmeterol [Advair 250-50 Diskus] 1 puffs INH BID 12/13/18 Insulin Aspart [NovoLOG] 1 - 9 unit SUBQ 0800,1200,1700,2100 12/13/18 Levofloxacin [Levaquin] 500 mg PO DAILYX3 12/13/18 Objective - Vital Signs/Intake & Output Intake & Output: Intake & Output 12/13/18 12/14/18 12/15/18 12/16/18 23:59 23:59 23:59 23:59 Intake Total 2310 1892.5 0 50 Output Total 100 1040 630 575 Balance 2210 852.5 -630 -525 - Objective Comments/Other: patinet is without spontaneous respiration after 1 minute. No pulse, no blood pressure. - Lab Results Fish Bones: 12/16/18 06:35 12/16/18 06:35 Other Labs: Lab Results x24hrs 12/16/18 12/16/18 12/14/18 Range/Units 06:35 06:35 20:32 WBC 14.7 H (4.8-10.8) x10^3/uL RBC 2.83 L (4.20-5.40) 10^6/uL Hgb 9.1 L (12.0-16.0) g/dL Hct 29.3 L (37.0-47.0) % MCV 103.5 H (81.0-99.0) fL MCH 32.2 H (27.0-31.0) pg MCHC 31.1 L (32.0-36.0) g/dL RDW 17.7 H (12.0-15.0) % Plt Count 389 (130-450) 10^3/uL MPV 10.2 (7.9-10.8) fL Neut # (Auto) 11.3 H (1.5-6.6) 10^3/uL Lymph # (Auto) 0.6 L (1.5-3.5) 10^3/uL [place] # (Auto) 2.2 H (0.0-1.0) 10^3/uL Eos # (Auto) 0.4 (0.0-0.7) 10^3/uL Baso # (Auto) 0.0 (0.0-0.1) 10^3/uL Absolute Nucleated RBC 0.04 x10^3/uL Nucleated RBC % 0.3 /100WBC Manual Slide Review Indicated WBC Morphology (NORMAL) Platelet Estimate NORMAL (130-450,000) (NORMAL) Platelet Morphology NORMAL APPEARANCE (NORMAL) RBC Morph Micro Appear 1+ TARGET CELLS (NORMAL) Sodium 145 (135-145) mmol/L Potassium 5.3 H (3.5-5.0) mmol/L Chloride 109 (101-111) mmol/L Carbon Dioxide 23 (21-32) mmol/L Anion Gap 13.0 (6-13) BUN 56 H (6-20) mg/dL Creatinine 1.4 H (0.4-1.0) mg/dL Estimated GFR (MDRD) 36 L (>89) Glucose 77 (70-100) mg/dL POC Whole Bld Glucose 81 (70 - 100) mg/dL Calcium 9.2 (8.5-10.3) mg/dL Phosphorus 4.5 (2.5-4.6) mg/dL Magnesium 2.1 (1.7-2.8) mg/dL 12/14/18 12/14/18 12/14/18 Range/Units 16:44 11:53 07:36 WBC (4.8-10.8) x10^3/uL RBC (4.20-5.40) 10^6/uL Hgb (12.0-16.0) g/dL Hct (37.0-47.0) % MCV (81.0-99.0) fL MCH (27.0-31.0) pg MCHC (32.0-36.0) g/dL RDW (12.0-15.0) % Plt Count (130-450) 10^3/uL MPV (7.9-10.8) fL Neut # (Auto) (1.5-6.6) 10^3/uL Lymph # (Auto) (1.5-3.5) 10^3/uL [place] # (Auto) (0.0-1.0) 10^3/uL Eos # (Auto) (0.0-0.7) 10^3/uL Baso # (Auto) (0.0-0.1) 10^3/uL Absolute Nucleated RBC x10^3/uL Nucleated RBC % /100WBC Manual Slide Review WBC Morphology (NORMAL) Platelet Estimate (NORMAL) Platelet Morphology (NORMAL) RBC Morph Micro Appear (NORMAL) Sodium (135-145) mmol/L Potassium (3.5-5.0) mmol/L Chloride (101-111) mmol/L Carbon Dioxide (21-32) mmol/L Anion Gap (6-13) BUN (6-20) mg/dL Creatinine (0.4-1.0) mg/dL Estimated GFR (MDRD) (>89) Glucose (70-100) mg/dL POC Whole Bld Glucose 96 97 86 (70 - 100) mg/dL Calcium (8.5-10.3) mg/dL Phosphorus (2.5-4.6) mg/dL Magnesium (1.7-2.8) mg/dL 12/13/18 12/13/18 12/13/18 Range/Units 21:32 16:14 10:57 WBC (4.8-10.8) x10^3/uL RBC (4.20-5.40) 10^6/uL Hgb (12.0-16.0) g/dL Hct (37.0-47.0) % MCV (81.0-99.0) fL MCH (27.0-31.0) pg MCHC (32.0-36.0) g/dL RDW (12.0-15.0) % Plt Count (130-450) 10^3/uL MPV (7.9-10.8) fL Neut # (Auto) (1.5-6.6) 10^3/uL Lymph # (Auto) (1.5-3.5) 10^3/uL [place] # (Auto) (0.0-1.0) 10^3/uL Eos # (Auto) (0.0-0.7) 10^3/uL Baso # (Auto) (0.0-0.1) 10^3/uL Absolute Nucleated RBC x10^3/uL Nucleated RBC % /100WBC Manual Slide Review WBC Morphology (NORMAL) Platelet Estimate (NORMAL) Platelet Morphology (NORMAL) RBC Morph Micro Appear (NORMAL) Sodium (135-145) mmol/L Potassium (3.5-5.0) mmol/L Chloride (101-111) mmol/L Carbon Dioxide (21-32) mmol/L Anion Gap (6-13) BUN (6-20) mg/dL Creatinine (0.4-1.0) mg/dL Estimated GFR (MDRD) (>89) Glucose (70-100) mg/dL POC Whole Bld Glucose 150 H 136 H 152 H (70 - 100) mg/dL Calcium (8.5-10.3) mg/dL Phosphorus (2.5-4.6) mg/dL Magnesium (1.7-2.8) mg/dL ABX Reporting Has patient been on IV antibiotics over the past 48 hours?: No Sepsis Event Note (H) - Evaluation Current Stage of Sepsis: Sepsis Possible source of Sepsis: positive: Pulmonary - Sepsis Criteria Sepsis Criteria: Recorded Temperature greater than 38.3C or Less than 36C, Recorded Heart Rate greater than 90 bpm, Recorded Respiratory Rate greater than 20, WBC count greater than 12,000 or less than 4000 Assessment/Plan - Problem List (1) due to metastatic cancer Impression: she presented w respiratory failure in a patient w metastatic disease. As treatment progressed, clearly in pain and much discomfort in spite of treatment. Transitioned to comfort measures yesterday morning early hours. pronounced today 08:29.
--- NOTE | 2018-12-16 15:06 | Discharge Plan ---
Discharge Plan Problem Reviewed?: Yes Disposition: 20 Condition: Serious No Smoking: If you smoke, Please STOP! Call for help.
--- NOTE | 2018-12-16 18:08 | DISCHARGE SUMMARY ---
Physician: Bibi Linn MD DATE OF ADMISSION: 12/13/2018 DATE OF DISCHARGE: 12/16/2018 DISCHARGE DIAGNOSES 1. Acute hypoxemic respiratory failure. 2. Pneumonia. 3. Malignant pleural effusion. 4. Sepsis due to pneumonia. 5. Atrial fibrillation with rapid ventricular response. 6. Anemia of chronic disease. 7. Breast cancer metastasized to lung. 8. Type 2 diabetes mellitus, without complications, on long-term use of insulin. 9. History of coronary artery disease. 10. History of pulmonary embolism. PRINCIPAL PROCEDURES 1. Chest x-ray on December 13 and . She has patchy multifocal right upper lobe airspace disease progression from 11/26/2018. Left perihilar as well as basilar airspace disease again seen with progression. Medium-sized left pleural effusion, stable from previous exam. Left-sided Port-A-Cath. Mild to moderate enlargement of the cardiac silhouette, stable from previous study. Severe left shoulder degenerative changes, moderate right shoulder degenerative changes. 2. Blood cultures negative after 48 hours. HISTORY OF PRESENT ILLNESS: The patient is an unfortunate 83-year-old female who has metastatic breast cancer to lung. She is still currently undergoing therapy, with her last chemotherapy 11/04/2018. She has chronic left shoulder pain, and stage IV breast cancer with metastasis to the lung. She was last admitted for acute respiratory failure and hypoxia from pneumonia and pleural effusion in November of this year. After discharge, she was transferred to [facility]. During her stay, she did have fibrillation with rapid ventricular response. She has been stable at [facility], slowly progressing with physical therapy. In spite of the poor prognosis of her disease, the patient continued to maintain a hopeful attitude that she would continue to respond to therapy to buy her more time. She was brought to the emergency room on 12/07/2018 and diagnosed with pneumonia, discharged back to [facility] with a prescription for oral Levaquin. She was doing well, had no symptoms until this morning when she developed fevers, dyspnea and a nonproductive cough. Her last Lasix dose was increased over the last few days because of increasing lower extremity edema. She had adequate appetite and oral intake. She was complaining of palpitations and orthopnea. In the emergency room, she was found to have atrial fibrillation with RVR and heart rates in the 150s. She required Cardizem to control her rate. She was noted to have a fever, and chest x-ray was concerning for worsening infiltrates and worsening left-sided pleural effusion. She was started on azithromycin and ceftriaxone. Her initial oxygen requirements were quite high, and she required a nonrebreather and was able to be weaned to nasal cannula of 8 liters by the time she was transferred to the floor. The patient initially seemed to be stable with regards to her antibiotics, diuretics, and continued supportive care of all of her medical problems. Glucose was controlled, blood pressure was controlled; however, on the evening of 12/14/2018 into the rat breeder hours of 12/15/2018, she appeared to have worsening respiratory status and began crying out because of pain and air hunger. She was back to being quite tachycardic and tachypneic. The patch sander spoke to the family. They had already been in contact with Dayanara Tirado, our palliative managed care liaison. They were already starting to transition to possible hospice as a thought process. With this in mind, the family spoke to Dr. Diamante Caballero at length and decided that they would like their mom made comfortable with no further aggressive measures to be done. As such, she was transitioned to comfort measures only. Labs, medications, blood pressure checks were all stopped except for medications with regards to pain, anxiety, fever. Mrs. Pinzon on 12/16/2018 at 8:29 in the morning with her and beloved pet at the bedside. TD: 12/16/2018 16:13 MTDD
== END 2018-12-16 08:29 | disposition expired | DRG 871 ==
LOC: EDUNIT# → ED 04:46 → ICU 08:10 → MS2 12-15 18:00
PROVIDERS: ADMIT Internal Medicine; ATTEND Specialist
DX: A41.9 Sepsis, unspecified organism (principal); J96.01 Acute respiratory failure with hypoxia; J18.1 Lobar pneumonia, unspecified organism; I10 Essential (primary) hypertension; J91.0 Malignant pleural effusion; J44.0 Chronic obstructive pulmonary disease with (acute) lower respiratory infection; C78.02 Secondary malignant neoplasm of left lung; C78.01 Secondary malignant neoplasm of right lung; G93.40 Encephalopathy, unspecified; I48.91 Unspecified atrial fibrillation; R65.20 Severe sepsis without septic shock; F41.1 Generalized anxiety disorder; I95.2 Hypotension due to drugs; T46.1X5A Adverse effect of calcium-channel blockers, initial encounter; Y92.238 Other place in hospital as the place of occurrence of the external cause; D63.8 Anemia in other chronic diseases classified elsewhere; D50.9 Iron deficiency anemia, unspecified; C50.911 Malignant neoplasm of unspecified site of right female breast; G89.29 Other chronic pain; M19.012 Primary osteoarthritis, left shoulder; M19.011 Primary osteoarthritis, right shoulder; M54.9 Dorsalgia, unspecified; E11.22 Type 2 diabetes mellitus with diabetic chronic kidney disease; I12.9 Hypertensive chronic kidney disease with stage 1 through stage 4 chronic kidney disease, or unspecified chronic kidney disease; N18.9 Chronic kidney disease, unspecified; I89.0 Lymphedema, not elsewhere classified; E78.5 Hyperlipidemia, unspecified; F32.9 Major depressive disorder, single episode, unspecified; R62.7 Adult failure to thrive; R32 Unspecified urinary incontinence; R07.81 Pleurodynia; M25.552 Pain in left hip; M25.551 Pain in right hip; R60.0 Localized edema; I25.10 Atherosclerotic heart disease of native coronary artery without angina pectoris; Z51.5 Encounter for palliative care; Z66 Do not resuscitate; Z79.4 Long term (current) use of insulin; Z86.718 Personal history of other venous thrombosis and embolism; Z86.711 Personal history of pulmonary embolism; Z95.828 Presence of other vascular implants and grafts; Z92.21 Personal history of antineoplastic chemotherapy; Z86.14 Personal history of Methicillin resistant Staphylococcus aureus infection; Z95.5 Presence of coronary angioplasty implant and graft; Z95.1 Presence of aortocoronary bypass graft; Z79.82 Long term (current) use of aspirin; Z79.811 Long term (current) use of aromatase inhibitors; Z79.51 Long term (current) use of inhaled steroids; Z86.79 Personal history of other diseases of the circulatory system; Z79.899 Other long term (current) drug therapy; Z74.01 Bed confinement status; Z68.36 Body mass index [BMI] 36.0-36.9, adult
CPT/HCPCS: 36415; 36556; 71045; 80048; 80053; 80162; 80202; 81001; 83605; 83690; 83735; 83880; 84100; 84443; 84484; 85025; 85610; 85730; 86850; 86900; 86901; 87040; 87150; 93005; 94640; 96365; 96367; 96375; 96376; 99233; 99284; 99285; A6250; A9270; J0131; J0282; J1815; J2060; J3370; J7120; J7626; 81003; 87086